=== PATIENT | female | born 1975 | race Caucasian/White ===

== ENCOUNTER 2018-08-24 05:59 | Outpatient (CLI) | payer OTHER ==
[~2018-08-24] VITALS: Ht 160 cm; Wt 77.1 kg
[2018-08-24] MEDS ORDERED: OMEP40CA36 PO (11:25)
[2018-08-26] MEDS ORDERED: ACHD5005 PO (09:00)
[2018-08-26] MEDS ORDERED: CEPH500C PO (09:00)
== END 2018-08-24 11:37 ==
LOC: PREOP 05:59
PROVIDERS: ATTEND Podiatrist Foot & Ankle Surgery
DX: Z01.818 Encounter for other preprocedural examination (principal)

== ENCOUNTER 2018-08-26 05:58 | Day surgery (SDC) | payer OTHER ==
[~2018-08-26] VITALS: Ht 160 cm; Wt 77.1 kg
[~2018-08-26 05:58] MED LIST: OMEP40CA36 PO
[2018-08-26] MEDS ORDERED: ceFAZolin INJECTION 1,000 MG in WATER (STERILE) FOR INJECTION 10 ML IV ONE (06:45)
[2018-08-26 06:47] VITALS: BP 106/53
[2018-08-26] MEDS ORDERED: ONDANSETRON 4 MG/2 ML (SDV) Z0FRAN ONE (06:47)
[2018-08-26] MEDS ORDERED: proPOfol 200 MG/20 ML (DIPRIVAN) VIAL IV ONE (06:47)
[2018-08-26] MEDS ORDERED: SEVOFLURANE (ULTANE) 15 ML INHAL SOLN ONE ×3 (06:47→08:38)
[2018-08-26] MEDS ORDERED: DEXAMETHASONE 10 MG/ML (DECADRON) 1 ML VIAL ONE (06:47)
[2018-08-26] MEDS ORDERED: MIDAZOLAM 2 MG/2 ML (VERSED) VIAL ONE (06:47)
[2018-08-26] MEDS ORDERED: LIDOCAINE PF 2% 5 ML (XYLOCAINE) VIAL ONE (06:47)
[2018-08-26] MEDS ORDERED: fentaNYL INJECTION 100 MCG/2 ML AMP ONE ×2 (06:47→08:55)
[2018-08-26] MEDS: LACTATED RINGERS 1,000 ML IV PRN ×2 (06:50→07:01)
[2018-08-26] MEDS ORDERED: BUPIVACAINE 0.5% 30 ML (SENSORCAINE) VIAL ONE (07:26)
[2018-08-26] MEDS ORDERED: LIDOCAINE 1% INJ 20 ML 20 ML VIAL ONE (07:26)
--- NOTE | 2018-08-26 07:37 | Progress Note-Pre Operative ---
Pre-Operative Progress Note H&P Reviewed The H&P was reviewed, patient examined and no changes noted. Date Seen by Provider: Aug 26, 2018 Time Seen by Provider: 07:36 Date H&P Reviewed: Aug 26, 2018 Time H&P Reviewed: 07:36 Pre-Operative Diagnosis: Tailor's Bunion right foot BHAVNA DELVALLE DPM Aug 26, 2018 07:37
--- NOTE | 2018-08-26 08:56 | Progress Note-Post Operative ---
Post-Operative Progess Note Surgeon (s)/Histotechnologist (s) Surgeon BHAVNA DELVALLE DPM Histotechnologist: none Pre-Operative Diagnosis Tailor's Bunion right foot Post-Operative Diagnosis Same Procedure & Operative Findings Date of Procedure 08/26/18 Procedure Performed/Findings Hussain type Bunionectomy, right 5th metatarsal Anesthesia Type General Estimated Blood Loss Estimated blood loss (mL): minimal Specimens/Packing Specimens Removed none BHAVNA DELVALLE DPM Aug 26, 2018 08:56
[2018-08-26] MEDS ORDERED: LACTATED RINGERS 1,000 ML IV SCH (08:57)
[2018-08-26] MEDS ORDERED: fentaNYL INJECTION 100 MCG/2 ML AMP IVP ONE (09:00)
[2018-08-26] MEDS ORDERED: HYDROcodone/APAP 5 MG/325 MG (LORTAB) TAB PO PRN (09:00)
[2018-08-26] MEDS ORDERED: MEPERIDINE (DEMEROL) INJ 50 MG/ML IVP ONE (09:00)
[2018-08-26] MEDS ORDERED: ACHD5005 PO (09:00)
[2018-08-26] MEDS ORDERED: CEPH500C PO (09:00)
[2018-08-26] MEDS ORDERED: ONDANSETRON 4 MG/2 ML (SDV) Z0FRAN IVP PRN (09:00)
[2018-08-26 09:50] VITALS: BP 124/70
[2018-08-26 10:20] VITALS: BP 105/65
[2018-08-26 10:50] VITALS: BP 107/68
--- NOTE | 2018-08-26 11:01 | Physical Therapy Ortho Eval ---
PT Orthopedic Evaluation Type of Surgery bunion right foot Prior Level of Function Current Living Status: Spouse Locomotion (Upon Admit): Independent Subjective Subjective Patient in bed pre tx, agrees to PT, has no pain at rest. Entry Into Home: Stairs Without Railing Steps Into Home: 1 Motor Control Motor Control: Motor Control WNL ROM ROM: WFL Strength Strength: WFL Transfer Transfers (B, C, W/C) (FIM): 5 Gait Gait Assistive Device: Crutches Right Lower Extremity: Right Weight Bearing Status RLE: Partial Weight Bearing Left Lower Extremity: Left Weight Bearing Status LLE: Full Weight Bearing Gait (FIM): 5 Distance: 150' Gait Level of Assist: 5 Summary/Comments Patient ambulated without LOB, used appropriate weight bearing, good swing through. She did need a cue to slow down and take smaller steps. Patient also went up and down 1 step using crutches with CGA and cues for foot placement. Treatment Rendered Treatment: Therapeutic Exercises, Gait Train, Step Train, Reviewed Precautions Exercise Instruction: Ankle Pumps LAQ Assessment/Goals Goal Time Frame: 1 Visit Understands HEP: Yes Safe Ambulation: Yes Plan Treatment Plan: Discharge PT/Family Agrees to Plan: Yes Time Time In: 1035 Time Out: 1052 Total Billed Treatment Time: 17 Billed Treatment Time 1 visit JOSE ALEJANDRO Kauffman' DEBBIE MANCILLA PT Aug 26, 2018 11:01
[2018-08-26 11:05] VITALS: BP 107/68
--- NOTE | 2018-08-26 11:56 | Diagnostic Imaging Report ---
Right foot at 911 hours. INDICATION: Foot surgery postop. AP and lateral views were obtained. There are no prior studies available for comparison. FINDINGS: There are 2 orthopedic fixation wire securing an osteotomy site of the neck of the fifth metatarsal. The orthopedic hardware appears to be in good position and the main fracture fragments are near anatomic in alignment. There does seem to be soft tissue edema in this area. There is a small amount of gas in the soft tissues as well. There is no other fracture or acute bony abnormality identified. There is moderate degenerative disease of the midfoot and there is a calcified enthesophyte along the posterior aspect of the calcaneus. IMPRESSION: There are postsurgical changes involving the neck of the fifth metatarsal. There is no acute bony abnormality noted otherwise. Dictated by: Dictated on workstation # [id number]
--- NOTE | 2018-08-26 12:19 | Anesthesia-General Post-Op ---
General Patient Condition Mental Status/LOC: Same as Preop Cardiovascular: Satisfactory Nausea/Vomiting: Absent Respiratory: Satisfactory Pain: Controlled Complications: Absent Post Op Complications Complications None Follow Up Care/Instructions Patient Instructions None needed. Anesthesia/Patient Condition Patient Condition Patient is doing well, no complaints, stable vital signs, no apparent adverse anesthesia problems. No complications reported per nursing. DOMENICA HARDY CRNA Aug 26, 2018 12:19
--- NOTE | 2018-08-26 17:31 | OPERATIVE REPORT ---
DATE OF SERVICE: 08/26/2018 SURGEON: Bhavna Delvalle DPM. PREOPERATIVE DIAGNOSIS: Tailor's bunion, right foot. POSTOPERATIVE DIAGNOSIS: Tailor's bunion, right foot. PROCEDURE: Hussain type bunionectomy, right fifth metatarsal. WOUND CLASS: Clean. ANESTHESIA: General. HEMOSTASIS: Pneumatic thigh tourniquet at 250 mmHg. INDICATIONS: This 42-year-old female presents complaining of a painful bunionette of the right foot. Conservative therapy has met with unsatisfactory results and the patient is agreeable to surgical intervention, after risks and complications were discussed at length. No guarantees were extended to the patient and she is willing to proceed. DESCRIPTION OF PROCEDURE: The patient was brought back to the operating table, placed in a secure supine position. Appropriate time out was performed. A general anesthetic was then induced. Utilizing aseptic technique, the right fifth metatarsal was anesthetized utilizing 10 mL of 0.5% Marcaine. The right foot was then prepped and draped in normal sterile manner. The right foot was then elevated and allowed to exsanguinate, after which the tourniquet was inflated to 250 mmHg. Attention was then directed to the dorsal aspect of the right fifth metatarsophalangeal joint, where a 3 cm longitudinal linear incision was created. The incision we deepened in the same plane with great care to identify and retract all vital neurovascular structures. All the necessary blood vessels were cauterized as encountered. The incision was deepened down to the capsular tissue, where a longitudinal capsulotomy was performed. The capsular tissue was exposing the hypertrophic lateral eminence to the fifth metatarsal head, which was resected utilizing the power sagittal saw. Next, utilizing the power sagittal saw, a Chevron-type osteotomy was performed from lateral to medial allowing the capital fragment to translocate medially and it was fixated in its corrected position utilizing a 0.062 threaded K-wire driven from proximal to plantar distal and a 0.045 threaded K wire from distal dorsal to proximal plantar. The K wires were cut, flush with the dorsal aspect of the cortices. Excellent bony apposition and fixation was appreciated. At this time, the head of the fifth metatarsal and distal diaphysis were further contoured and smoothed utilizing a power bur. The wound was flushed with copious amounts of normal saline, once again after which closure was then performed in layers. Deep closure was performed with 3-0 Vicryl, superficial with 4-0 Vicryl, skin closed with 4-0 Prolene in a horizontal mattress type stitch. Postoperative injection consisted of 8 mL of 0.5% Marcaine injected in a local infusion to the surgical site. Postoperative dressing consisted of Betadine soaked Adaptic, sterile 4 x 4, sterile Kerlix all secured with a Coban wrap. The patient tolerated the anesthesia and procedure well, was transported from the operating room to the recovery area with vital signs stable and vascular status intact to all digits of the right foot. She was given a prescription for Keflex and Vicodin. She is to follow up in my office in 10 days' period of time and stay nonweightbearing on the right foot. We will see her sooner if necessary. 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
--- OUTSIDE RECORDS SUMMARY | 2018-08-28 05:55 | XMS REPORT ---
Author [facility] Medical Staff Organization [facility] Address [address], [place] [address] Phone [phone] Summary purpose TRANSITION OF CARE AUTO GENERATION Chief Complaint and Reason for Visit No authorized Reason for Visit (Admitting Diagnosis) is available for this visit. Problem list No authorized problems tracked for continuity of care are available for this visit. Encounters No authorized problems tracked for encounter diagnoses are available for this visit. Medications No medications recorded for this patient visit Allergies, adverse reactions, alerts Allergen Category Ingredient Status Reaction Severity Onset No known drug allergies No known drug allergies No known drug allergies Confirmed or Verified Immunizations No immunizations recorded for this patient visit Relevant diagnostic tests and/or laboratory data No authorized results are available for this patient visit History of procedures No procedures recorded for this patient visit. Functional status No functional or cognitive status observations are available for this visit. Vital signs No authorized vital signs are available for this visit. Social history No Social History or smoking status observations were recorded for this visit. ( Unknown if ever smoked.) Treatment Plan No treatment plan text is available for this visit. Hospital discharge instructions No discharge instruction text is available for this visit.
--- OUTSIDE RECORDS SUMMARY | 2018-08-28 05:55 | XMS REPORT ---
Author [facility] Organization [facility] Address [address] [place], [place] [address] Phone [phone] Summary purpose TRANSITION OF CARE AUTO GENERATION [...] visit Relevant diagnostic tests and/or laboratory data RESULTS Chemistry [id number]:55:00 Result Normal Range Units Sodium 140 134-145 mEq/l Potassium 3.5 3.5-5.1 mEq/l Chloride 101 98-107 mEq/l CO2 25.5 22-28 mEq/l Glucose 81 70-105 mg/dl BUN 9 7-18 mg/dl Creatinine 0.81 0.6-1.0 mg/dl Calcium 8.6 8.4-10.2 mg/dl TP - Total Protein 6.8 6.0-8.3 g/dl Albumin L 3.3 3.5-5 g/dl Bilirubin - Total 0.5 0.1-1.0 mg/dl AST 13 10-42 IU/L ALT 22 12-65 IU/L ALP 49 25-72 IU/L Osmolality L 277.1 280-300 mOsm/L Albumin/Globulin Ratio 0.9 0-8 Anion GAP 13.5 8-16 BUN/Creatinine Ratio 11.1 10-20 Estimated GFR 80 >=60 mL/min/1.7 Hematology [id number]:55:00 Result Normal Range Units WBC 10.8 4.8-10.8 103/uL RBC L 3.6 4.2-5.4 106/uL HGB L 10.7 12.0-16.0 g/dl HCT L 31.6 36.9-47.0 % MCV 86.8 81-99 FL MCH 29.4 27-31 pg MCHC 33.9 33-37 g/dl RDW 13.2 11.5-15.5 % PLT 302 130-400 103/uL MPV 9.9 7.3-10.4 FL Neutro % H 73.4 40-70 % Lymph % 20.8 20-40 % [place] % 4.0 0-10.0 % Eos % 0.9 0-7.0 % Baso % 0.3 0-2 % Neutro # H 8.0 1.5-7.5 103/uL Lymph # 2.3 0.9-4.0 103/uL [place] # 0.4 0-0.8 103/uL Eos # 0.1 0-0.6 103/uL Baso # 0.0 0-0.1 103/uL Radiology Results :55:00 Result Normal Range Units MPV 9.9 7.3-10.4 FL History of procedures No procedures recorded for this patient visit. Functional status Functional Status Finding Observation Time Ambulation Asst Dev none :20 Muscle Strength RUE 5 ROM full resist :20 Muscle Strength RLE 5 ROM full resist :20 Muscle Strength LUE 5 ROM full resist :20 Muscle Strength LLE 5 ROM full resist :20 Abdomen Appearance obese :20 Abdomen tender :20 Bowel Sounds present :20 Davidson no :20 Urination normal :20 Quality sym/unlabored :20 Cough absent :20 Secretions no :20 Secretion Consist thin :20 Secretion Color clear :20 Airway natural :20 Temp >100.4 no :20 Temp <96.8 no :20 Chills with rigors no :20 HR > 90bpm no :20 Respirations > 20 no :20 Systolic <90 no :20 headache stiff neck no :20 IV Site Location L FA :41 IV Type peripheral :41 IV Site Information discontinued :41 IV Site Start Attmpt 1 times :55 IV Site Mirza 22 :55 IV Site Appearance WNL :55 IV Site Color clear :55 IV Site Patent yes :55 Dressing Type occlusive :55 Nursing Note heart tones-163. SL dc intact, discharge instructions reviewed with pt-verbalized understanding. vS obtained, dc in good condition and ambulatory. :41 Vital signs Type Value Date Respiration Rate 20breaths per minute :41 Pulse 63beats per minute :41 Oxygen Saturation 96% :41 BP Systolic 106mmHg :41 BP Diastolic 56mmHg :41 Temperature 98.1F :15 Height 63inches :15 Weight 242LB :15 Social history Type Value Smoking Status CURRENT SOME DAY SMOKER Treatment Plan No treatment plan text is available for this visit. Hospital discharge instructions Dismissal Condition good Disposition on DC home DC Inst/Educ Give yes Med/Side Effects Rev yes PNE Vac No Flu Vac No Tetanus Vac Unknown
--- OUTSIDE RECORDS SUMMARY | 2018-08-28 05:55 | XMS REPORT ---
Author Author Nessa Banuelos Organization [employer] Address Unknown Phone Unavailable Care Team Providers Care Doping Supervisor Name Role Phone Nessa Banuelos CP Unavailable Allergies No Known Allergies Problems Problem Type Condition Code Onset Dates Condition Status Assessment Maternal care for other (suspected) abnormality and damage, not applicable or unspecified O35.8XX0 Active Medications No Known Medications Procedures Procedure Coding System Code Date Echocardiography, doppler, ; follow-up CPT-4 26000 Jun 11, 2015 Doppler color flow velocity mapping CPT-4 08242 Jun 11, 2015 Echocardiography, , 2D, follow-up CPT-4 79503 Jun 11, 2015 Results No Known Results Summary Purpose [employer] Submission
--- OUTSIDE RECORDS SUMMARY | 2018-08-28 05:55 | XMS REPORT ---
Author [facility] Medical Staff Organization [facility] Address [address], [place] [address] Phone [phone] Summary purpose TRANSITION OF CARE AUTO GENERATION [...]
--- OUTSIDE RECORDS SUMMARY | 2018-08-28 05:55 | XMS REPORT ---
Author [facility] Medical Staff Organization [facility] Address [address], [place] [address] Phone [phone] Summary purpose TRANSITION OF CARE AUTO GENERATION Chief Complaint and Reason for Visit Admit Diagnosis 1 OTH CURR COND-ANTEPARTUM Problem list No authorized problems tracked for [...] diagnostic tests and/or laboratory data RESULTS Chemistry [id number]:00 Result Normal Range Units Sodium 140 134-145 [...] 10-20 Estimated GFR 80 >=60 mL/min/1.7 Hematology [id number]:55:00 Result Normal Range Units WBC 10.8 4.8-10.8 103/uL RBC L 3.6 4.2-5.4 106/uL HGB L 10.7 12.0-16.0 g/dl HCT L 31.6 36.9-47.0 % MCV 86.8 81-99 FL MCH 29.4 27-31 pg MCHC 33.9 33-37 g/dl RDW 13.2 11.5-15.5 % PLT 302 130-400 103/uL MPV 9.9 7.3-10.4 FL Neutro % H 73.4 40-70 % Lymph % 20.8 20-40 % [place] % 4.0 0-10.0 % Eos % 0.9 0-7.0 % Baso % 0.3 0-2 % Neutro # H 8.0 1.5-7.5 103/uL Lymph # 2.3 0.9-4.0 103/uL [place] # 0.4 0-0.8 103/uL Eos # 0.1 0-0.6 103/uL Baso # 0.0 0-0.1 103/uL Radiology Results [id number]:00 Result Normal Range Units MPV 9.9 7.3-10.4 FL History of procedures Procedure Code Code Type Description Date Performed Performing Physician 23326 CPT-4 COMPLETE CBC W/AUTO DIFF WBC 02-11-2015 LAHTA CHOI 30327 CPT-4 COMPREHEN METABOLIC PANEL 02-11-2015 LATHA CHOI J2550 CPT-4 PROMETHAZIEN 25MG/ML 02-11-2015 LATHA CHOI J7030 CPT-4 NORMAL SALINE SOLUTION INFUS 02-11-2015 LATHA CHOI J2550 CPT-4 PROMETHAZIEN 25MG/ML 02-11-2015 LATHA CHOI J7040 CPT-4 NORMAL SALINE SOLUTION INFUS 02-11-2015 LATHA CHOI 54915 CPT-4 ROUTINE VENIPUNCTURE 02-11-2015 LATHA CHOI 27013 CPT-4 EMERGENCY DEPT VISIT 02-11-2015 LATHA CHOI 98700 CPT-4 EMERGENCY DEPT VISIT 02-11-2015 LATHA CHOI 36140 CPT-4 THER/PROPH/DIAG INJ, IV PUSH 02-11-2015 LATHA CHOI 77034 CPT-4 TX/PRO/DX INJ NEW DRUG PATIENT COMPANION 02-11-2015 LATHA CHOI 88462 CPT-4 HYDRATE IV INFUSION, ADD-ON 02-11-2015 LATHA CHOI Functional status Functional Status Finding Observation Time [...] normal :20 Quality sym/unlabored :20 Cough absent : Secretions no : Secretion Consist thin :20 Secretion Color clear :20 Airway natural : Temp >100.4 no : Temp <96.8 no :20 Chills with rigors no : HR > 90bpm no :20 Respirations > 20 no : Systolic <90 no : headache stiff neck no :20 IV Site [...]
--- OUTSIDE RECORDS SUMMARY | 2018-08-28 05:56 | XMS REPORT | Clinical Summary ---
Author Author Admin, E Organization [employer] Address Unknown Phone Unavailable Allergies, Adverse Reactions, Alerts Allergy Name Reaction Description Start Date Severity Status Provider HYDROCODONE IV Critical Active Tariq Marrero MD Conditions or Problems Problem Name Problem Code Onset Date Status Entry Date Provider Comment Standard Description Annotate Health examination of defined subpopulations V70.5 Resolved 2014 Karen Jaramillo MD Health examination of defined subpopulations Supervision of other normal V22.1 Inactive Karen Jaramillo MD Supervision of other normal Supervision high risk , third trimester V23.9 Resolved Rian Ortega MD Supervision of unspecified high-risk Advanced maternal age 659.60 Resolved Rian Ortega MD Elderly multigravida, with current , unspecified as to episode of care or not applicable Previous delivery, antepartum condition or complication 654.23 11/20 Active Karen Jaramillo MD Previous section, antepartum condition or complication Obesity 278.00 Refinement Karen Jaramillo MD Obesity, unspecified Obesity Class I (BMI 30-34.9) 278.00 Active Rian Ortega MD Obesity, unspecified Vaginal bleeding, first trimester 641.90 Inactive Karen Jaramillo MD Unspecified antepartum hemorrhage, unspecified as to episode of care or not applicable Vaginal bleeding, second trimester 641.93 Resolved Rian Ortega MD Unspecified antepartum hemorrhage, antepartum condition or complication Trichomonal vaginitis 131.01 Resolved Rian Ortega MD Trichomonal vulvovaginitis Insect bite 919.4 Resolved Karen Jaramillo MD Insect bite, nonvenomous, of other, multiple, and unspecified sites, without mention of infection Sexual activity, high risk V69.2 Resolved Rian Ortega MD High-risk sexual behavior Diarrhea 787.91 Resolved Rian Ortega MD Diarrhea Nausea and vomiting 787.01 Resolved Rian Ortega MD Nausea with vomiting Supervision of elderly primigravida, second trimester V23.83 Resolved Karen Jaramillo MD Young primigravida Weight loss 783.21 Resolved Karen Jaramillo MD Loss of weight 18 weeks gestation of V28.9 Resolved Karen Jaramillo MD Encounter for unspecified screening of mother Obesity complicating , second trimester 649.13 Resolved Rian Ortega MD Obesity complicating , childbirth , or the puerperium, antepartum condition or complication 20 weeks gestation of V28.9 Inactive Deepika Alvarez LRT Encounter for unspecified screening of mother Low lying placenta 762.2 Resolved Rian Ortega MD Other and unspecified morphological and functional abnormalities of placenta affecting fetus or 24 weeks gestation of V28.9 Inactive Karen Jaramillo MD Encounter for unspecified screening of mother 28 weeks gestation of V28.9 Resolved Rian Ortega MD Encounter for unspecified screening of mother Polyhydramnios, antepartum 657.03 Resolved Rian Ortega MD Polyhydramnios, antepartum condition or complication 29 weeks gestation of V28.9 Inactive Deepika Alvarez LRT Encounter for unspecified screening of mother Cellulitis 682.9 Resolved Rian Ortega MD Cellulitis and abscess of unspecified sites Abscess, skin 682.9 Resolved Rian Ortega MD Cellulitis and abscess of unspecified sites 30 weeks gestation of V28.9 Inactive Deepika LRT Encounter for unspecified screening of mother 31 weeks gestation of V28.9 Inactive Deepika Alvarez LRT Encounter for unspecified screening of mother Morbid obesity 278.01 Resolved Rian Ortega MD Morbid obesity Obstructive sleep apnea 327.23 Active Rian Ortega MD Obstructive sleep apnea (adult) (pediatric) Cigarette smoker 305.1 Resolved Rian Ortega MD Tobacco use disorder 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 V72.31 Active Sasha Tan APRN Routine gynecological examination Bariatric operative procedure V45.86 Active Mariely HARVEY Bariatric surgery status Physical examination V70.0 Active Sasha Tan APRN Routine general medical examination at a health care facility Dysuria 788.1 Resolved Rian Ortega MD Dysuria Urinary tract infection 599.0 Resolved Rian Ortega MD Urinary tract infection, site not specified Bronchitis 490 Resolved Rian Ortega MD Bronchitis, not specified as acute or chronic Shoulder pain, left 719.41 Resolved Rian Ortega MD Pain in joint involving shoulder region Overweight 278.02 Resolved Rian Ortega MD Overweight Thoracic back pain 724.5 Resolved Rian Ortega MD Backache, unspecified Fatigue 780.79 Resolved Rian Ortega MD Other malaise and fatigue Cough 786.2 Resolved Rian Ortega MD Cough Myalgias 729.1 Inactive Tariq Marrero MD Myalgia and myositis, unspecified Body Mass Index 29.0-29.9 Adult Refinement Tariq Marrero MD Body Mass Index 29.0-29.9, adult BMI 31-31.9 Active Rian Ortega MD Body Mass Index 29.0-29.9, adult Encounter for general adult medical examination without abnormal findings V72.3 Active Irma Nix PA-C Special investigations and examinations - Gynecological examination SINUSITIS, ACUTE 461.9 Resolved Rian Ortega MD Acute sinusitis, unspecified Preoperative examination V72.84 Active Rian Ortega MD Preoperative examination, unspecified Health examination of defined subpopulations ICD-V70.5 Inactive Karen Jaramillo MD Supervision high risk , third trimester ICD-V23.9 10/31 Inactive Rian Ortega MD Advanced maternal age ICD-659.60 Inactive Rian Ortega MD Vaginal bleeding, second trimester ICD-641.93 Inactive Rian Ortega MD Trichomonal vaginitis ICD-131.01 Inactive Rian Ortega MD Insect bite ICD-919.4 Inactive Karen Jaramillo MD Sexual activity, high risk ICD-V69.2 Inactive Rian Ortega MD Diarrhea ICD-787.91 Inactive Rian Ortega MD Nausea and vomiting ICD-787.01 Inactive Rian Ortega MD Supervision of elderly primigravida, second trimester ICD-V23.83 Inactive Karen Jaramillo MD Weight loss ICD-783.21 Inactive Karen Jaramillo MD 18 weeks gestation of ICD-V28.9 Inactive Karen Jaramillo MD Obesity complicating , second trimester ICD-649.13 10/31 Inactive Rian Ortega MD 20 weeks gestation of ICD-V28.9 Inactive Deepika Alvarez LRT Low lying placenta ICD-762.2 Inactive Rian Ortega MD 28 weeks gestation of ICD-V28.9 Inactive Rian Ortega MD Polyhydramnios, antepartum ICD-657.03 Inactive Rian Ortega MD 29 weeks gestation of ICD-V28.9 Inactive Deepika Alvarez LRT Cellulitis ICD-682.9 Inactive Rian Ortega MD Abscess, skin ICD-682.9 Inactive Rian Ortega MD 30 weeks gestation of ICD-V28.9 Inactive Deepika Alvarez LRT 31 weeks gestation of ICD-V28.9 Inactive Deepika Alvarez LRT Morbid obesity ICD-278.01 Inactive Rian Ortega MD Cigarette smoker ICD-305.1 Inactive Rian Ortega MD Dysuria ICD-788.1 Inactive Rian Ortega MD 03/29 Urinary tract infection ICD-599.0 Inactive Rian Ortega MD Bronchitis ICD-490 Inactive Rian Ortega MD 2016 Shoulder pain, left ICD-719.41 Inactive Rian Ortega MD Overweight ICD-278.02 Inactive Paula Plascencia MA Thoracic back pain ICD-724.5 Inactive Rian Ortega MD Fatigue ICD-780.79 Inactive Rian Ortega MD 2018 Cough ICD-786.2 Inactive Rian Ortega MD Myalgias ICD-729.1 Inactive Tariq Marrero MD SINUSITIS, ACUTE ICD-461.9 Inactive Rian Ortega MD Medication List Medication Instructions Start Date Stop Date Generic Name NDC Status Provider Patient Instruction AMOXICILLIN 500 MG ORAL CAPSULE 1 cap by mouth three times a day AMOXICILLIN 55339723867 No Longer Active Tariq Marrero MD Active BACTRIM DS 800-160 MG ORAL TABLET 1 twice a day SULFAMETHOXAZOLE-TRIMETHOPRIM 98259736452 No Longer Active Irma Michaels Active ZITHROMAX Z-DANILO 250 MG ORAL TABLET 2 today, then 1 daily for 4 days AZITHROMYCIN 51441245706 No Longer Active Mahsa Alvarez Active AZITHROMYCIN 250 MG ORAL TABLET 2 po qd x 1 day, then 1 po qd x 4 days 07/27 AZITHROMYCIN 01168198050 No Longer Active Carline Best APRN Active GUAIFENESIN ER 600 MG ORAL TABLET EXTENDED RELEASE 12 HOUR 1 twice a day as needed for congestion GUAIFENESIN 70375131864 No Longer Active Sasha Tan APRN Active CYCLOBENZAPRINE HCL 10 MG ORAL TABLET 1 three times a day as needed for muscle spasm CYCLOBENZAPRINE HCL 15225457392 No Longer Active Sasha Tan APRN Active SYMBICORT 160-4.5 MCG/ACT INHALATION AEROSOL 2 puff BID for 10 days BUDESONIDE-FORMOTEROL FUMARATE 16633602783 No Longer Active Rian Ortega MD Active AZITHROMYCIN 250 MG ORAL TABLET 2 po qd x 1 day, then 1 po qd x 4 days 02/15 AZITHROMYCIN 57539249497 No Longer Active Carline Best APRN Active CIPRO 500 MG ORAL TABLET 1 tablet by mouth twice daily CIPROFLOXACIN HCL 42873678526 No Longer Active Tariq Marrero MD Active AZO TABS TABLET 2 tabs qd PHENAZOPYRIDINE HCL TABS 73026592802 No Longer Active Tariq Marrero MD Active CIPROFLOXACIN HCL 250 MG ORAL TABLET 1 twice a day for bladder infection 2016 CIPROFLOXACIN HCL 28247700235 No Longer Active Tariq Marrero MD Active SM VITAMIN B12 TR 1000 MCG ORAL TABLET EXTENDED RELEASE 1 tab po daily 04/24 CYANOCOBALAMIN 33107042050 No Longer Active Nereyda Rodriguez APRN Active CARAFATE 1 GM ORAL TABLET 1 tab po as needed up to 4 times per day SUCRALFATE 58376580659 No Longer Active Nereyda Rodriguez APRN Active PNV PLUS MULTIVITAMIN 27-1 MG ORAL TABLET 1 daily 04/24 VIT-FE FUMARATE-FA 52045372663 No Longer Active Sasha Tan APRN Active CHANTIX STARTING MONTH DANILO 0.5 MG X 11 & 1 MG X 42 ORAL TABLET take as directed VARENICLINE TARTRATE 79176968088 No Longer Active Sasha Tan APRN Active CHANTIX 1 MG ORAL TABLET 1 twice a day to help quit smoking 04/24 VARENICLINE TARTRATE 64218284201 No Longer Active Sasha Tan APRN Active OMEPRAZOLE 20 MG ORAL CAPSULE DELAYED RELEASE 1 tablet by mouth daily OMEPRAZOLE 63409370718 Active Sasha Tan APRN Active FLINSTONES GUMMIES OMEGA-3 DHA ORAL TABLET CHEWABLE 2 gummies per day PEDIATRIC MULTIPLE VIT-C-FA 69384271952 Active Sasha Tan APRN Active CLINDAMYCIN HCL 150 MG ORAL CAPSULE 1 four times a day for 1 week CLINDAMYCIN HCL 28423854436 No Longer Active Karen Jaramillo MD Active TRIAMCINOLONE ACETONIDE 0.1 % EXTERNAL CREAM Apply to affected areas TID for up to 1 week TRIAMCINOLONE ACETONIDE 22206667968 No Longer Active Rian Ortega MD Active ZITHROMAX 1 GM ORAL PACKET Take 1 time and recheck lab in 2-3 weeks AZITHROMYCIN 75255674041 No Longer Active Rian Ortega MD Active FLAGYL 500 MG ORAL TABLET four tabs PO x 1 METRONIDAZOLE 46588416972 No Longer Active Aris Charlton MD Active FLAGYL 500 MG ORAL TABLET four tabs PO x 1 FLAGYL 500 MG ORAL TABLET 376263 METRONIDAZOLE Inactive ZITHROMAX 1 GM ORAL PACKET Take 1 time and recheck lab in 2-3 weeks ZITHROMAX 1 GM ORAL PACKET 425913 AZITHROMYCIN Inactive TRIAMCINOLONE ACETONIDE 0.1 % EXTERNAL CREAM Apply to affected areas TID for up to 1 week TRIAMCINOLONE ACETONIDE 0.1 % EXTERNAL CREAM 0832574 TRIAMCINOLONE ACETONIDE Inactive CLINDAMYCIN HCL 150 MG ORAL CAPSULE 1 four times a day for 1 week CLINDAMYCIN HCL 150 MG ORAL CAPSULE 030803 CLINDAMYCIN HCL Inactive CHANTIX 1 MG ORAL TABLET 1 twice a day to help quit smoking 04/24 CHANTIX 1 MG ORAL TABLET VARENICLINE TARTRATE Inactive CHANTIX STARTING MONTH DANILO 0.5 MG X 11 & 1 MG X 42 ORAL TABLET take as directed CHANTIX STARTING MONTH DANILO 0.5 MG X 11 & 1 MG X 42 ORAL TABLET VARENICLINE TARTRATE Inactive PNV PLUS MULTIVITAMIN 27-1 MG ORAL TABLET 1 daily 04/24 PNV PLUS MULTIVITAMIN 27-1 MG ORAL TABLET VIT-FE FUMARATE-FA Inactive CARAFATE 1 GM ORAL TABLET 1 tab po as needed up to 4 times per day CARAFATE 1 GM ORAL TABLET 734000 SUCRALFATE Inactive SM VITAMIN B12 TR 1000 MCG ORAL TABLET EXTENDED RELEASE 1 tab po daily 04/24 SM VITAMIN B12 TR 1000 MCG ORAL TABLET EXTENDED RELEASE CYANOCOBALAMIN Inactive CIPROFLOXACIN HCL 250 MG ORAL TABLET 1 twice a day for bladder infection 2016 CIPROFLOXACIN HCL 250 MG ORAL TABLET 485449 CIPROFLOXACIN HCL Inactive AZO TABS TABLET 2 tabs qd AZO TABS TABLET PHENAZOPYRIDINE HCL TABS Inactive SYMBICORT 160-4.5 MCG/ACT INHALATION AEROSOL 2 puff BID for 10 days SYMBICORT 160-4.5 MCG/ACT INHALATION AEROSOL BUDESONIDE- FORMOTEROL FUMARATE Inactive CYCLOBENZAPRINE HCL 10 MG ORAL TABLET 1 three times a day as needed for muscle spasm CYCLOBENZAPRINE HCL 10 MG ORAL TABLET 678149 CYCLOBENZAPRINE HCL Inactive GUAIFENESIN ER 600 MG ORAL TABLET EXTENDED RELEASE 12 HOUR 1 twice a day as needed for congestion GUAIFENESIN ER 600 MG ORAL TABLET EXTENDED RELEASE 12 HOUR GUAIFENESIN Inactive BACTRIM DS 800-160 MG ORAL TABLET 1 twice a day BACTRIM DS 800-160 MG ORAL TABLET 941703 SULFAMETHOXAZOLE-TRIMETHOPRIM Inactive CIPRO 500 MG ORAL TABLET 1 tablet by mouth twice daily CIPRO 500 MG ORAL TABLET 305724 CIPROFLOXACIN HCL Inactive AZITHROMYCIN 250 MG ORAL TABLET 2 po qd x 1 day, then 1 po qd x 4 days 02/15 AZITHROMYCIN 250 MG ORAL TABLET 398258 AZITHROMYCIN Inactive AZITHROMYCIN 250 MG ORAL TABLET 2 po qd x 1 day, then 1 po qd x 4 days 07/27 AZITHROMYCIN 250 MG ORAL TABLET 526912 AZITHROMYCIN Inactive ZITHROMAX Z-DANILO 250 MG ORAL TABLET 2 today, then 1 daily for 4 days ZITHROMAX Z-DANILO 250 MG ORAL TABLET 147971 AZITHROMYCIN Inactive AMOXICILLIN 500 MG ORAL CAPSULE 1 cap by mouth three times a day AMOXICILLIN 500 MG ORAL CAPSULE 081019 AMOXICILLIN Inactive Immunizations Vaccine Administration Date Value Standard Description influenza immunization (Flu Vax) has been administered Done according to patient influenza virus vaccine, unspecified formulation hepatitis B vaccine series yes hepatitis B vaccine, unspecified formulation Vital Signs Date Name Value Unit Range Description blood pressure, diastolic, repeated by physician 67 BP calvo blood pressure, diastolic 67 mm[Hg] BP calvo blood pressure, systolic, repeated by physician 113 BP sys blood pressure, systolic 113 mm[Hg] BP sys height E&M 62 [in_us] Bdy height pulse rate E&M 62 /min Heart rate temperature E&M 97.7 [degF] Body temperature weight E&M 173 [lb_av] Weight Measured blood pressure, diastolic 72 mm[Hg] BP calvo blood pressure, systolic 125 mm[Hg] BP sys height E&M 62 [in_us] Bdy height pulse rate E&M 76 /min Heart rate temperature E&M 98.3 [degF] Body temperature weight E&M 163 [lb_av] Weight Measured blood pressure, diastolic, repeated by physician 70 BP calvo blood pressure, diastolic 70 mm[Hg] BP calvo blood pressure, systolic, repeated by physician 120 BP sys blood pressure, systolic 120 mm[Hg] BP sys height E&M 62 [in_us] Bdy height pulse rate E&M 66 /min Heart rate temperature E&M 98.6 [degF] Body temperature weight E&M 164 [lb_av] Weight Measured height E&M 62 [in_us] Bdy height blood pressure, diastolic 76 mm[Hg] BP calvo blood pressure, systolic 116 mm[Hg] BP sys height E&M 62 [in_us] Bdy height pulse rate E&M 104 /min Heart rate temperature E&M 102.1 [degF] Body temperature weight E&M 161 [lb_av] Weight Measured Diagnostic Results Date Name Value Unit Range Description Immunizations: TB Skin Test - Challenge tests PPD results in mm 0 mm Lab Report: CBC W/DIFF - Hematology leukocyte count, blood sent to [facility] 10^3/mm^3 10*3/mm3 4.6-10.2 Office Visit: Pre-Surgery Exam - Basic LDL target level 160 mg/dL Office Visit: Pre-Surgery Exam - Chemistry HDL cholesterol, serum, target level 40 mg/dL cholesterol, target level 200 mg/dL triglyceride, target level 150 mg/dL Office Visit: UTI - Chemistry RBC, urine, dipstick trace Office Visit: UTI - Urinalysis nitrite, urine, semiquantitative positive urobilinogen, urine, semiquantitative (dipstick) 0.2 leukocyte esterase, urine, by dipstick 2+ appearance, urine cloudy urine color red specific gravity, urine 1.010 pH, urine, semiquantitative 7.5 glucose, urine, semiquantitative 1+ ketones, urine, by test strip trace bilirubin, urine 1+ Encounters Code Encounter Date Provider Facility CPT-84028 [id number] Vst-Est Level IV 13:46:58 MANAGER GROUP Rian Ortega MD [facility] CPT-32018 Level 3 Est. Patient 16:49:52 CDT Rian Ortega MD [facility] CPT-22323 [id number] Vst-Est Level III 16:46:54 CDT Tariq Marrero MD [facility] CPT-16659 Level 3 Est. Patient 14:41:20 CDT Tariq Marrero MD [facility] CPT-21996 Level 3 Est. Patient 11:06:09 MANAGER GROUP Carline Best [facility] CPT-03428 Level 3 Est. Patient 15:59:13 MANAGER GROUP Carline Best [facility] CPT-75523 Employment/ICC Exam 15:03:09 MANAGER GROUP Sasha Tan [facility] CPT-37450 Level 3 Est. Patient 11:54:40 CDT Rian Ortega MD [facility] CPT-09804 Level 3 Est. Patient 11:17:51 CDT Carline Best [facility] CPT-10524 Level 3 Est. Patient 15:43:38 CDT Tariq Marrero MD [facility] CPT-16877 Level 3 Est. Patient 11:16:27 MANAGER GROUP Nereyda Rodriguez [facility] CPT-88000 Level 4 Est. Patient 08:56:42 MANAGER GROUP Sasha Tan [facility] CPT-91288 Level 3 Est. Patient 16:40:58 CDT Rian Ortega MD [facility] CPT-17128 Level 3 Est. Patient 13:55:16 MANAGER GROUP Rian Ortega MD [facility] CPT-25539 Level 3 Est. Patient 10:42:52 CDT Corrina Bailon [facility] CPT-37636 Level 3 Est. Patient 11:18:30 CDT Aris Charlton MD [facility] Procedures Code Procedure Name Date Entry Date Standard Description CPT-91168 Prv Med Est Pt 40-64yrs 16:49:40 CDT CPT-22279 UA w micro - LAB USE ONLY 13:09:18 MANAGER GROUP CPT-15448 Urine Culture - LAB USE ONLY 13:09:18 MANAGER GROUP CPT-11047 Wet Mount - LAB USE ONLY 11:11:39 MANAGER GROUP CPT-26710 Lipid - LAB USE ONLY 15:05:24 MANAGER GROUP CPT-72570 PT/INR - LAB USE ONLY 12:14:07 CDT CPT-97246 HGBA1C - LAB USE ONLY 12:14:07 CDT CPT-50611 CMP - LAB USE ONLY 12:14:07 CDT CPT-66392 CBC - LAB USE ONLY 12:14:07 CDT CPT-74174 Venipuncture Draw Fee 12:14:06 CDT CPT-J0702 Celestone 6 mg (Betamethasone) 15:04:45 MANAGER GROUP CPT-76045 Abx/Therapy Injection 15:04:45 MANAGER GROUP CPT-J0702 Celestone 12 mg (Betamethasone) 11:45:31 MANAGER GROUP CPT-23811 Visit 11:39:52 MANAGER GROUP CPT-44783I Sono biophysical pro wo stress test-[employer] Only 11:21: 42 MANAGER GROUP CPT-33557 Visit 16:00:50 MANAGER GROUP CPT-51022R Sono biophysical pro wo stress test-[employer] Only 13:12: 18 MANAGER GROUP CPT-60390 Sono biophysical pro wo stress test 11:17:21 MANAGER GROUP 05/21 CPT-47585 Tdap 7yrs or > 15:22:51 MANAGER GROUP CPT-39241 Immunization Single Admin 15:22:51 MANAGER GROUP CPT-29299 Tdap 7yrs or > 15:09:13 MANAGER GROUP CPT-43964 Visit 14:54:16 MANAGER GROUP CPT-59263 Fluzone Quadrivalent Intramuscular Suspension 0.5 ML 16: 58:58 CDT CPT-89532 Administration single or combination vaccine inc oral 16 :58:58 CDT CPT-39370 Fluzone Thim Free 36mo and older 14:47:39 CDT CPT-88343 Visit 14:47:39 CDT CPT-04098 Sono OB limited 10:30:07 CDT CPT-39978 Visit 10:04:44 CDT CPT-41912 Sono OB comp > 14 weeks 12:50:41 CDT CPT-74747 Visit 12:06:25 CDT CPT-16029 Visit 12:43:15 CDT CPT-49117 Visit 10:06:02 CDT CPT-01091 Spec Collection and Handling Fee 10:00:31 CDT CPT-50316 Visit 10:00:30 CDT CPT-99147 Drug Screen Grisel 14:36:13 CDT
--- OUTSIDE RECORDS SUMMARY | 2018-08-28 05:57 | XMS REPORT | Clinical Summary ---
Author Author Admin, E Organization [employer] Address Unknown Phone Unavailable Allergies, Adverse Reactions, [...] high risk , third trimester V23.9 Resolved Rina Ortega MD Supervision of unspecified high-risk Advanced [...] screening of mother Morbid obesity 278.01 Resolved iRan Ortega MD Morbid obesity Obstructive sleep apnea 327.23 Active Rian Ortega MD Obstructive sleep apnea (adult) (pediatric) Cigarette smoker 305.1 Resolved Rian Ortega MD Tobacco use disorder Senior Benefits Analyst well woman exam V72.31 Active Sasha Tan [...] Acute sinusitis, unspecified Preoperative examination V72.84 Active Rain Ortega MD Preoperative examination, unspecified Health examination [...] by mouth three times a day AMOXICILLIN 64928133105 No Longer Active Tariq Marrero MD Active BACTRIM DS 800-160 MG ORAL TABLET 1 twice a day SULFAMETHOXAZOLE-TRIMETHOPRIM 97515723002 No Longer Active Irma Michaels Active ZITHROMAX Z-DANILO 250 MG ORAL TABLET 2 today, then 1 daily for 4 days AZITHROMYCIN 24901926750 No Longer Active Mahsa Alvarez Active AZITHROMYCIN 250 MG ORAL TABLET 2 po qd x 1 day, then 1 po qd x 4 days 07/27 AZITHROMYCIN 08391388108 No Longer Active Carline Best APRN Active GUAIFENESIN ER 600 MG ORAL TABLET EXTENDED RELEASE 12 HOUR 1 twice a day as needed for congestion GUAIFENESIN 84811209732 No Longer Active Sasha Tan APRN Active CYCLOBENZAPRINE HCL 10 MG ORAL TABLET 1 three times a day as needed for muscle spasm CYCLOBENZAPRINE HCL 92756000758 No Longer Active Sasha Tan APRN Active SYMBICORT 160-4.5 MCG/ACT INHALATION AEROSOL 2 puff BID for 10 days BUDESONIDE-FORMOTEROL FUMARATE 51149696664 No Longer Active Rian Ortega MD Active AZITHROMYCIN 250 MG ORAL TABLET 2 po qd x 1 day, then 1 po qd x 4 days 02/15 AZITHROMYCIN 27533259886 No Longer Active Carline Best APRN Active CIPRO 500 MG ORAL TABLET 1 tablet by mouth twice daily CIPROFLOXACIN HCL 43826227056 No Longer Active Tariq Marrero MD Active AZO TABS TABLET 2 tabs qd PHENAZOPYRIDINE HCL TABS 35719577977 No Longer Active Tariq Marrero MD Active CIPROFLOXACIN HCL 250 MG ORAL TABLET 1 twice a day for bladder infection 2016 CIPROFLOXACIN HCL 43960143052 No Longer Active Tariq Marrero MD Active SM VITAMIN B12 TR 1000 MCG ORAL TABLET EXTENDED RELEASE 1 tab po daily 04/24 CYANOCOBALAMIN 34686510507 No Longer Active Nereyda Rodriguez APRN Active CARAFATE 1 GM ORAL TABLET 1 tab po as needed up to 4 times per day SUCRALFATE 34640259807 No Longer Active Nereyda Rodriguez APRN Active PNV PLUS MULTIVITAMIN 27-1 MG ORAL TABLET 1 daily 04/24 VIT-FE FUMARATE-FA 90836918667 No Longer Active Sasha Tan APRN Active CHANTIX STARTING MONTH DANILO 0.5 MG X 11 & 1 MG X 42 ORAL TABLET take as directed VARENICLINE TARTRATE 50289008898 No Longer Active Sasha Tan APRN Active CHANTIX 1 MG ORAL TABLET 1 twice a day to help quit smoking 04/24 VARENICLINE TARTRATE 27511172370 No Longer Active Sasha Tan APRN Active OMEPRAZOLE 20 MG ORAL CAPSULE DELAYED RELEASE 1 tablet by mouth daily OMEPRAZOLE 25421619691 Active Sasha Tan APRN Active FLINSTONES GUMMIES OMEGA-3 DHA ORAL TABLET CHEWABLE 2 gummies per day PEDIATRIC MULTIPLE VIT-C-FA 67609675525 Active Sasha Tan APRN Active CLINDAMYCIN HCL 150 MG ORAL CAPSULE 1 four times a day for 1 week CLINDAMYCIN HCL 24501420893 No Longer Active Karen Jaramillo MD Active TRIAMCINOLONE ACETONIDE 0.1 % EXTERNAL CREAM Apply to affected areas TID for up to 1 week TRIAMCINOLONE ACETONIDE 70674583575 No Longer Active Rian Ortega MD Active ZITHROMAX 1 GM ORAL PACKET Take 1 time and recheck lab in 2-3 weeks AZITHROMYCIN 22553583868 No Longer Active Rian Ortega MD Active FLAGYL 500 MG ORAL TABLET four tabs PO x 1 METRONIDAZOLE 15870739049 No Longer Active Aris Charlton MD Active FLAGYL 500 MG ORAL TABLET four tabs PO x 1 FLAGYL 500 MG ORAL TABLET 021574 METRONIDAZOLE Inactive ZITHROMAX 1 GM ORAL PACKET Take 1 time and recheck lab in 2-3 weeks ZITHROMAX 1 GM ORAL PACKET 009650 AZITHROMYCIN Inactive TRIAMCINOLONE ACETONIDE 0.1 % EXTERNAL CREAM Apply to affected areas TID for up to 1 week TRIAMCINOLONE ACETONIDE 0.1 % EXTERNAL CREAM 1920727 TRIAMCINOLONE ACETONIDE Inactive CLINDAMYCIN HCL 150 MG ORAL CAPSULE 1 four times a day for 1 week CLINDAMYCIN HCL 150 MG ORAL CAPSULE 777269 CLINDAMYCIN HCL Inactive CHANTIX 1 MG ORAL [...] per day CARAFATE 1 GM ORAL TABLET 384844 SUCRALFATE Inactive SM VITAMIN B12 TR 1000 MCG ORAL TABLET EXTENDED RELEASE 1 tab po daily 04/24 SM VITAMIN B12 TR 1000 MCG ORAL TABLET EXTENDED RELEASE CYANOCOBALAMIN Inactive CIPROFLOXACIN HCL 250 MG ORAL TABLET 1 twice a day for bladder infection 2016 CIPROFLOXACIN HCL 250 MG ORAL TABLET 444331 CIPROFLOXACIN HCL Inactive AZO TABS TABLET 2 tabs qd AZO TABS TABLET PHENAZOPYRIDINE HCL TABS Inactive SYMBICORT 160-4.5 MCG/ACT INHALATION AEROSOL 2 puff BID for 10 days SYMBICORT 160-4.5 MCG/ACT INHALATION AEROSOL BUDESONIDE- FORMOTEROL FUMARATE Inactive CYCLOBENZAPRINE HCL 10 MG ORAL TABLET 1 three times a day as needed for muscle spasm CYCLOBENZAPRINE HCL 10 MG ORAL TABLET 661022 CYCLOBENZAPRINE HCL Inactive GUAIFENESIN ER 600 MG ORAL TABLET EXTENDED RELEASE 12 HOUR 1 twice a day as needed for congestion GUAIFENESIN ER 600 MG ORAL TABLET EXTENDED RELEASE 12 HOUR GUAIFENESIN Inactive BACTRIM DS 800-160 MG ORAL TABLET 1 twice a day BACTRIM DS 800-160 MG ORAL TABLET 301517 SULFAMETHOXAZOLE-TRIMETHOPRIM Inactive CIPRO 500 MG ORAL TABLET 1 tablet by mouth twice daily CIPRO 500 MG ORAL TABLET 670412 CIPROFLOXACIN HCL Inactive AZITHROMYCIN 250 MG ORAL TABLET 2 po qd x 1 day, then 1 po qd x 4 days 02/15 AZITHROMYCIN 250 MG ORAL TABLET 226704 AZITHROMYCIN Inactive AZITHROMYCIN 250 MG ORAL TABLET 2 po qd x 1 day, then 1 po qd x 4 days 07/27 AZITHROMYCIN 250 MG ORAL TABLET 287567 AZITHROMYCIN Inactive ZITHROMAX Z-DANILO 250 MG ORAL TABLET 2 today, then 1 daily for 4 days ZITHROMAX Z-DANILO 250 MG ORAL TABLET 588292 AZITHROMYCIN Inactive AMOXICILLIN 500 MG ORAL CAPSULE 1 cap by mouth three times a day AMOXICILLIN 500 MG ORAL CAPSULE 985521 AMOXICILLIN Inactive Immunizations Vaccine Administration Date Value [...] - Hematology leukocyte count, blood sent to [facility] 10^3/mm^3 10*3/mm3 4.6-10.2 Office Visit: Pre-Surgery Exam [...] 1+ Encounters Code Encounter Date Provider Facility CPT-11948 [id number] Vst-Est Level IV 13:46:58 [employer] Rian Ortega MD [facility] CPT-13218 Level 3 Est. Patient 16:49:52 CDT Rian Ortega MD [facility] CPT-76671 [id number] Vst-Est Level III 16:46:54 CDT Tariq Marrero MD [facility] CPT-87311 Level 3 Est. Patient 14:41:20 CDT Tariq Marrero MD [facility] CPT-50980 Level 3 Est. Patient 11:06:09 [employer] Carline Best [facility] CPT-60396 Level 3 Est. Patient 15:59:13 [employer] Carline Best [facility] CPT-96163 Employment/ICC Exam 15:03:09 [employer] Sasha Tan [facility] CPT-65893 Level 3 Est. Patient 11:54:40 CDT Rian Ortega MD [facility] CPT-63048 Level 3 Est. Patient 11:17:51 CDT Carline Best [facility] CPT-21880 Level 3 Est. Patient 15:43:38 CDT Tariq Marrero MD [facility] CPT-83631 Level 3 Est. Patient 11:16:27 [employer] Nereyda Rodriguez [facility] CPT-44641 Level 4 Est. Patient 08:56:42 [employer] Sasha Tan [facility] CPT-86870 Level 3 Est. Patient 16:40:58 CDT Rian Ortega MD [facility] CPT-34497 Level 3 Est. Patient 13:55:16 [employer] Rian Ortega MD [facility] CPT-43592 Level 3 Est. Patient 10:42:52 CDT Corrina Bailon [facility] CPT-07133 Level 3 Est. Patient 11:18:30 CDT Aris Charlton MD [facility] Procedures Code Procedure Name Date Entry Date Standard Description CPT-91382 Prv Med Est Pt 40-64yrs 16:49:40 CDT CPT-06969 UA w micro - LAB USE ONLY 13:09:18 [employer] [employer] CPT-36247 Urine Culture - LAB USE ONLY 13:09:18 [employer] [place] CPT-65392 Wet Mount - LAB USE ONLY 11:11:39 [employer] [employer] [employer] CPT-40327 Lipid - LAB USE ONLY 15:05:24 [employer] [place] [employer] CPT-36387 PT/INR - LAB USE ONLY 12:14:07 CDT CPT-01079 HGBA1C - LAB USE ONLY 12:14:07 CDT CPT-67216 CMP - LAB USE ONLY 12:14:07 CDT CPT-01983 CBC - LAB USE ONLY 12:14:07 CDT CPT-29175 Venipuncture Draw Fee 12:14:06 CDT CPT-J0702 Celestone 6 mg (Betamethasone) 15:04:45 [employer] [place] [employer] CPT-62034 Abx/Therapy Injection 15:04:45 [employer] [place] CPT-J0702 Celestone 12 mg (Betamethasone) 11:45:31 [employer] CPT-12602 Visit 11:39:52 [employer] [place] CPT-66574H [employer] pro wo stress test-[place] Only 11:21: 42 [employer] CPT-06680 Visit 16:00:50 [employer] [place] CPT-20996W [employer] pro wo stress test-[place] Only 13:12: 18 [employer] [place] [place] CPT-31385 [employer] pro wo stress test 11:17:21 [employer] [place] 05/21 CPT-60965 Tdap 7yrs or > 15:22:51 [employer] [place] [place] CPT-17079 Immunization Single Admin 15:22:51 [employer] [place] [employer] CPT-32741 Tdap 7yrs or > 15:09:13 [employer] [place] [place] CPT-93282 Visit 14:54:16 [employer] [place] [employer] CPT-50010 Fluzone Quadrivalent Intramuscular Suspension 0.5 ML 16: 58:58 CDT CPT-53743 Administration single or combination vaccine inc oral 16 :58:58 CDT CPT-68873 Fluzone Thim Free 36mo and older 14:47:39 CDT CPT-13129 Visit 14:47:39 CDT CPT-15358 Sono OB limited 10:30:07 CDT CPT-38344 Visit 10:04:44 CDT CPT-44370 Sono OB comp > 14 weeks 12:50:41 CDT CPT-65532 Visit 12:06:25 CDT CPT-54434 Visit 12:43:15 CDT CPT-85166 Visit 10:06:02 CDT CPT-65821 Spec Collection and Handling Fee 10:00:31 CDT CPT-45737 Visit 10:00:30 CDT CPT-32132 Drug Screen [place] 14:36:13 CDT
--- OUTSIDE RECORDS SUMMARY | 2018-08-28 05:57 | XMS REPORT | Clinical Summary ---
Author Author Admin, E Organization [employer] Address Unknown Phone Unavailable Allergies, Adverse Reactions, [...] screening of mother Morbid obesity 278.01 Resolved Rina Ortega MD Morbid obesity Obstructive sleep apnea 327.23 Active Rian Ortega MD Obstructive sleep apnea (adult) (pediatric) Cigarette smoker 305.1 Resolved Rian Ortega MD Tobacco use disorder Associate Sales Representative well woman exam V72.31 Active Sasha Tan [...] joint involving shoulder region Overweight 278.02 Resolved iRan Ortega MD Overweight Thoracic back pain 724.5 [...] Active Rian Ortega MD Preoperative examination, unspecified Supervision high risk , third trimester ICD-V23.9 [...] second trimester ICD-V23.83 Inactive Karen Jaramillo MD Health examination of defined subpopulations ICD-V70.5 Inactive Karen Jaramillo MD Obesity complicating , second trimester ICD-649.13 10/31 Inactive Rian Ortega MD 20 weeks gestation of ICD-V28.9 Inactive Deepika Alvarez LRT Low lying placenta ICD-762.2 Inactive Rian Ortega MD Weight loss ICD-783.21 Inactive Karen Jaramillo MD 28 weeks gestation of ICD-V28.9 Inactive Rian Ortega MD Polyhydramnios, antepartum ICD-657.03 Inactive Rian Ortega MD 29 weeks gestation of ICD-V28.9 Inactive Deepika MCQUEENT Cellulitis ICD-682.9 Inactive Rian Ortega MD Abscess, skin ICD-682.9 Inactive Rian Ortega MD 30 weeks gestation of ICD-V28.9 Inactive Deepika Alvarez LRT 31 weeks gestation of ICD-V28.9 Inactive Deepika MCQUEENT Morbid obesity ICD-278.01 Inactive Rian Ortega MD Cigarette smoker ICD-305.1 Inactive Rian Ortega MD Dysuria ICD-788.1 Inactive Rian Ortega MD 03/29 Urinary tract infection ICD-599.0 Inactive Rian Ortega MD 18 weeks gestation of ICD-V28.9 Inactive Karen Jaramillo MD Shoulder pain, left ICD-719.41 Inactive Rian Ortega MD Overweight ICD-278.02 Inactive Paula Plascencia MA Thoracic back pain ICD-724.5 Inactive Rian Ortega MD Fatigue ICD-780.79 Inactive Rian Ortega MD 2018 Cough ICD-786.2 Inactive Rian Ortega MD Myalgias ICD-729.1 Inactive Tariq Marrero MD SINUSITIS, ACUTE ICD-461.9 Inactive Rian Ortega MD Bronchitis ICD-490 Inactive Rian Ortega MD 2016 Medication List Medication Instructions Start Date Stop Date Generic Name NDC Status Provider Patient Instruction AMOXICILLIN 500 MG ORAL CAPSULE 1 cap by mouth three times a day AMOXICILLIN 90304928629 No Longer Active Tariq Marrero MD Active BACTRIM DS 800-160 MG ORAL TABLET 1 twice a day SULFAMETHOXAZOLE-TRIMETHOPRIM 51357487300 No Longer Active Irma Michaels Active ZITHROMAX Z-DANILO 250 MG ORAL TABLET 2 today, then 1 daily for 4 days AZITHROMYCIN 40464796515 No Longer Active Mahsa Alvarez Active AZITHROMYCIN 250 MG ORAL TABLET 2 po qd x 1 day, then 1 po qd x 4 days 07/27 AZITHROMYCIN 14865595236 No Longer Active Carline Best APRN Active GUAIFENESIN ER 600 MG ORAL TABLET EXTENDED RELEASE 12 HOUR 1 twice a day as needed for congestion GUAIFENESIN 19316202087 No Longer Active Sasha Tan APRN Active CYCLOBENZAPRINE HCL 10 MG ORAL TABLET 1 three times a day as needed for muscle spasm CYCLOBENZAPRINE HCL 50913500406 No Longer Active Sasha Tan APRN Active SYMBICORT 160-4.5 MCG/ACT INHALATION AEROSOL 2 puff BID for 10 days BUDESONIDE-FORMOTEROL FUMARATE 64614727088 No Longer Active Rian Ortega MD Active AZITHROMYCIN 250 MG ORAL TABLET 2 po qd x 1 day, then 1 po qd x 4 days 02/15 AZITHROMYCIN 06732631562 No Longer Active Carline Best APRN Active CIPRO 500 MG ORAL TABLET 1 tablet by mouth twice daily CIPROFLOXACIN HCL 69960838477 No Longer Active Tariq Marrero MD Active AZO TABS TABLET 2 tabs qd PHENAZOPYRIDINE HCL TABS 11411124037 No Longer Active Tariq Marrero MD Active CIPROFLOXACIN HCL 250 MG ORAL TABLET 1 twice a day for bladder infection 2016 CIPROFLOXACIN HCL 88974762058 No Longer Active Tariq Marrero MD Active SM VITAMIN B12 TR 1000 MCG ORAL TABLET EXTENDED RELEASE 1 tab po daily 04/24 CYANOCOBALAMIN 05348071090 No Longer Active Nereyda Rodriguez APRN Active CARAFATE 1 GM ORAL TABLET 1 tab po as needed up to 4 times per day SUCRALFATE 09513452270 No Longer Active Nereyda Rodriguez APRN Active PNV PLUS MULTIVITAMIN 27-1 MG ORAL TABLET 1 daily 04/24 VIT-FE FUMARATE-FA 16935001902 No Longer Active Sasha Tan APRN Active CHANTIX STARTING MONTH DANILO 0.5 MG X 11 & 1 MG X 42 ORAL TABLET take as directed VARENICLINE TARTRATE 61141349828 No Longer Active Sasha Tan APRN Active CHANTIX 1 MG ORAL TABLET 1 twice a day to help quit smoking 04/24 VARENICLINE TARTRATE 18591488057 No Longer Active Sasha Tan APRN Active OMEPRAZOLE 20 MG ORAL CAPSULE DELAYED RELEASE 1 tablet by mouth daily OMEPRAZOLE 13098721603 Active Sasha Tan APRN Active FLINSTONES GUMMIES OMEGA-3 DHA ORAL TABLET CHEWABLE 2 gummies per day PEDIATRIC MULTIPLE VIT-C-FA 98702189722 Active Sasha Tan APRN Active CLINDAMYCIN HCL 150 MG ORAL CAPSULE 1 four times a day for 1 week CLINDAMYCIN HCL 34802698729 No Longer Active Karen Jaramillo MD Active TRIAMCINOLONE ACETONIDE 0.1 % EXTERNAL CREAM Apply to affected areas TID for up to 1 week TRIAMCINOLONE ACETONIDE 10908681361 No Longer Active Rian Ortega MD Active ZITHROMAX 1 GM ORAL PACKET Take 1 time and recheck lab in 2-3 weeks AZITHROMYCIN 84506846463 No Longer Active Rian Ortega MD Active FLAGYL 500 MG ORAL TABLET four tabs PO x 1 METRONIDAZOLE 36972402734 No Longer Active Aris Charlton MD Active FLAGYL 500 MG ORAL TABLET four tabs PO x 1 FLAGYL 500 MG ORAL TABLET 321162 METRONIDAZOLE Inactive ZITHROMAX 1 GM ORAL PACKET Take 1 time and recheck lab in 2-3 weeks ZITHROMAX 1 GM ORAL PACKET 310449 AZITHROMYCIN Inactive TRIAMCINOLONE ACETONIDE 0.1 % EXTERNAL CREAM Apply to affected areas TID for up to 1 week TRIAMCINOLONE ACETONIDE 0.1 % EXTERNAL CREAM 8281297 TRIAMCINOLONE ACETONIDE Inactive CLINDAMYCIN HCL 150 MG ORAL CAPSULE 1 four times a day for 1 week CLINDAMYCIN HCL 150 MG ORAL CAPSULE 837198 CLINDAMYCIN HCL Inactive CHANTIX 1 MG ORAL [...] per day CARAFATE 1 GM ORAL TABLET 574961 SUCRALFATE Inactive SM VITAMIN B12 TR 1000 MCG ORAL TABLET EXTENDED RELEASE 1 tab po daily 04/24 SM VITAMIN B12 TR 1000 MCG ORAL TABLET EXTENDED RELEASE CYANOCOBALAMIN Inactive CIPROFLOXACIN HCL 250 MG ORAL TABLET 1 twice a day for bladder infection 2016 CIPROFLOXACIN HCL 250 MG ORAL TABLET 007845 CIPROFLOXACIN HCL Inactive AZO TABS TABLET 2 tabs qd AZO TABS TABLET PHENAZOPYRIDINE HCL TABS Inactive SYMBICORT 160-4.5 MCG/ACT INHALATION AEROSOL 2 puff BID for 10 days SYMBICORT 160-4.5 MCG/ACT INHALATION AEROSOL BUDESONIDE- FORMOTEROL FUMARATE Inactive CYCLOBENZAPRINE HCL 10 MG ORAL TABLET 1 three times a day as needed for muscle spasm CYCLOBENZAPRINE HCL 10 MG ORAL TABLET 262642 CYCLOBENZAPRINE HCL Inactive GUAIFENESIN ER 600 MG ORAL TABLET EXTENDED RELEASE 12 HOUR 1 twice a day as needed for congestion GUAIFENESIN ER 600 MG ORAL TABLET EXTENDED RELEASE 12 HOUR GUAIFENESIN Inactive BACTRIM DS 800-160 MG ORAL TABLET 1 twice a day BACTRIM DS 800-160 MG ORAL TABLET 662148 SULFAMETHOXAZOLE-TRIMETHOPRIM Inactive CIPRO 500 MG ORAL TABLET 1 tablet by mouth twice daily CIPRO 500 MG ORAL TABLET 431382 CIPROFLOXACIN HCL Inactive AZITHROMYCIN 250 MG ORAL TABLET 2 po qd x 1 day, then 1 po qd x 4 days 02/15 AZITHROMYCIN 250 MG ORAL TABLET 868507 AZITHROMYCIN Inactive AZITHROMYCIN 250 MG ORAL TABLET 2 po qd x 1 day, then 1 po qd x 4 days 07/27 AZITHROMYCIN 250 MG ORAL TABLET 774075 AZITHROMYCIN Inactive ZITHROMAX Z-DANILO 250 MG ORAL TABLET 2 today, then 1 daily for 4 days ZITHROMAX Z-DANILO 250 MG ORAL TABLET 701122 AZITHROMYCIN Inactive AMOXICILLIN 500 MG ORAL CAPSULE 1 cap by mouth three times a day AMOXICILLIN 500 MG ORAL CAPSULE 774087 AMOXICILLIN Inactive Immunizations Vaccine Administration Date Value [...] - Hematology leukocyte count, blood sent to [facility] 10^3/mm^3 10*3/mm3 4.6-10.2 Office Visit: Pre-Surgery [...] 1+ Encounters Code Encounter Date Provider Facility CPT-18889 [id number] Vst-Est Level IV 13:46:58 [employer]ISTANT [employer] MANAGER Rian Ortega MD [facility] CPT-16059 Level 3 Est. Patient 16:49:52 CDT Rian Ortega MD [facility] CPT-09428 [id number] Vst-Est Level III 16:46:54 CDT Tariq Marrero MD [facility] CPT-88438 Level 3 Est. Patient 14:41:20 CDT Tariq Marrero MD [facility] CPT-80863 Level 3 Est. Patient 11:06:09 ASSISTANT OFFICE MANAGER Carline Best [facility] CPT-83585 Level 3 Est. Patient 15:59:13 ASSISTANT OFFICE MANAGER Carline Best [facility] CPT-71039 Employment/ICC Exam 15:03:09 ASSISTANT OFFICE MANAGER Sasha Tan [facility] CPT-00216 Level 3 Est. Patient 11:54:40 CDT Rian Ortega MD [facility] CPT-83728 Level 3 Est. Patient 11:17:51 CDT Carline Best [facility] CPT-33554 Level 3 Est. Patient 15:43:38 CDT Tariq Marrero MD [facility] CPT-46014 Level 3 Est. Patient 11:16:27 ASSISTANT OFFICE MANAGER Nereyda Rodriguez [facility] CPT-42395 Level 4 Est. Patient 08:56:42 ASSISTANT OFFICE MANAGER Sasha Tan [facility] CPT-44088 Level 3 Est. Patient 16:40:58 CDT Rian Ortega MD [facility] CPT-51126 Level 3 Est. Patient 13:55:16 ASSISTANT OFFICE MANAGER Rian Ortega MD [facility] CPT-62612 Level 3 Est. Patient 10:42:52 CDT Corrina Bailon [facility] CPT-72504 Level 3 Est. Patient 11:18:30 CDT Aris Charlton MD [facility] Procedures Code Procedure Name Date Entry Date Standard Description CPT-92543 Prv Med Est Pt 40-64yrs 16:49:40 CDT CPT-68878 UA w micro - LAB USE ONLY 13:09:18 ASSISTANT OFFICE MANAGER CPT-34747 Urine Culture - LAB USE ONLY 13:09:18 ASSISTANT OFFICE MANAGER CPT-92885 Wet Mount - LAB USE ONLY 11:11:39 ASSISTANT OFFICE MANAGER CPT-63805 Lipid - LAB USE ONLY 15:05:24 ASSISTANT OFFICE MANAGER CPT-07545 PT/INR - LAB USE ONLY 12:14:07 CDT CPT-06684 HGBA1C - LAB USE ONLY 12:14:07 CDT CPT-16429 CMP - LAB USE ONLY 12:14:07 CDT CPT-54152 CBC - LAB USE ONLY 12:14:07 CDT CPT-32011 Venipuncture Draw Fee 12:14:06 CDT CPT-J0702 Celestone 6 mg (Betamethasone) 15:04:45 ASSISTANT OFFICE MANAGER CPT-04282 Abx/Therapy Injection 15:04:45 ASSISTANT OFFICE MANAGER CPT-J0702 Celestone 12 mg (Betamethasone) 11:45:31 ASSISTANT OFFICE MANAGER CPT-90720 Visit 11:39:52 ASSISTANT OFFICE MANAGER CPT-88676H Son[employer] biophysical pro wo stress test-[place] Only 11:21: 42 ASSISTANT OFFICE MANAGER CPT-06710 Visit 16:00:50 ASSISTANT OFFICE MANAGER CPT-73054R [employer] biophysical pro wo stress test-[place] Only 13:12: 18 ASSISTANT OFFICE MANAGER CPT-11422 [employer]o biophysical pro wo stress test 11:17:21 ASSISTANT OFFICE MANAGER 05/21 CPT-45492 Tdap 7yrs or > 15:22:51 ASSISTANT OFFICE MANAGER CPT-46520 Immunization Single Admin 15:22:51 ASSISTANT OFFICE MANAGER CPT-39854 Tdap 7yrs or > 15:09:13 ASSISTANT OFFICE MANAGER CPT-78571 Visit 14:54:16 ASSISTANT OFFICE MANAGER CPT-72448 Fluzone Quadrivalent Intramuscular Suspension 0.5 ML 16: 58:58 CDT CPT-24032 Administration single or combination vaccine inc oral 16 :58:58 CDT CPT-91136 Fluzone Thim Free 36mo and older 14:47:39 CDT CPT-68548 Visit 14:47:39 CDT CPT-42145 Sono OB limited 10:30:07 CDT CPT-19683 Visit 10:04:44 CDT CPT-96589 Sono OB comp > 14 weeks 12:50:41 CDT CPT-40614 Visit 12:06:25 CDT CPT-42288 Visit 12:43:15 CDT CPT-05928 Visit 10:06:02 CDT CPT-49308 Spec Collection and Handling Fee 10:00:31 CDT CPT-41362 Visit 10:00:30 CDT CPT-66986 Drug Screen [place] 14:36:13 CDT
--- OUTSIDE RECORDS SUMMARY | 2018-08-28 05:58 | XMS REPORT | Clinical Summary ---
Author Author Admin, E Organization [employer] 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 exam V72.31 Active Sasha Tan [...] by mouth three times a day AMOXICILLIN 86457043280 No Longer Active Tariq Marrero MD Active BACTRIM DS 800-160 MG ORAL TABLET 1 twice a day SULFAMETHOXAZOLE-TRIMETHOPRIM 87300031942 No Longer Active Irma Michaels Active ZITHROMAX Z-DANILO 250 MG ORAL TABLET 2 today, then 1 daily for 4 days AZITHROMYCIN 78641049084 No Longer Active Mahsa Alvarez Active AZITHROMYCIN 250 MG ORAL TABLET 2 po qd x 1 day, then 1 po qd x 4 days 07/27 AZITHROMYCIN 66351642485 No Longer Active Carline Best APRN Active GUAIFENESIN ER 600 MG ORAL TABLET EXTENDED RELEASE 12 HOUR 1 twice a day as needed for congestion GUAIFENESIN 44800146145 No Longer Active Sasha Tan APRN Active CYCLOBENZAPRINE HCL 10 MG ORAL TABLET 1 three times a day as needed for muscle spasm CYCLOBENZAPRINE HCL 26872669187 No Longer Active Sasha Tan APRN Active SYMBICORT 160-4.5 MCG/ACT INHALATION AEROSOL 2 puff BID for 10 days BUDESONIDE-FORMOTEROL FUMARATE 99826987071 No Longer Active Rian Ortega MD Active AZITHROMYCIN 250 MG ORAL TABLET 2 po qd x 1 day, then 1 po qd x 4 days 02/15 AZITHROMYCIN 00388295176 No Longer Active Carline Best APRN Active CIPRO 500 MG ORAL TABLET 1 tablet by mouth twice daily CIPROFLOXACIN HCL 12315396299 No Longer Active Tariq Marrero MD Active AZO TABS TABLET 2 tabs qd PHENAZOPYRIDINE HCL TABS 77538054310 No Longer Active Tariq Marrero MD Active CIPROFLOXACIN HCL 250 MG ORAL TABLET 1 twice a day for bladder infection 2016 CIPROFLOXACIN HCL 81633425939 No Longer Active Tariq Marrero MD Active SM VITAMIN B12 TR 1000 MCG ORAL TABLET EXTENDED RELEASE 1 tab po daily 04/24 CYANOCOBALAMIN 88277384802 No Longer Active Nereyda Rodriguez APRN Active CARAFATE 1 GM ORAL TABLET 1 tab po as needed up to 4 times per day SUCRALFATE 38053215683 No Longer Active Nereyda Rodriguez APRN Active PNV PLUS MULTIVITAMIN 27-1 MG ORAL TABLET 1 daily 04/24 VIT-FE FUMARATE-FA 78592366905 No Longer Active Sasha Tan APRN Active CHANTIX STARTING MONTH DANILO 0.5 MG X 11 & 1 MG X 42 ORAL TABLET take as directed VARENICLINE TARTRATE 01514240499 No Longer Active Sasha Tan APRN Active CHANTIX 1 MG ORAL TABLET 1 twice a day to help quit smoking 04/24 VARENICLINE TARTRATE 83182087074 No Longer Active Sasha Tan APRN Active OMEPRAZOLE 20 MG ORAL CAPSULE DELAYED RELEASE 1 tablet by mouth daily OMEPRAZOLE 65778602290 Active Sasha Tan APRN Active FLINSTONES GUMMIES OMEGA-3 DHA ORAL TABLET CHEWABLE 2 gummies per day PEDIATRIC MULTIPLE VIT-C-FA 91951148063 Active Sasha Tan APRN Active CLINDAMYCIN HCL 150 MG ORAL CAPSULE 1 four times a day for 1 week CLINDAMYCIN HCL 54431955490 No Longer Active Karen Jaramillo MD Active TRIAMCINOLONE ACETONIDE 0.1 % EXTERNAL CREAM Apply to affected areas TID for up to 1 week TRIAMCINOLONE ACETONIDE 36298588267 No Longer Active Rian Ortega MD Active ZITHROMAX 1 GM ORAL PACKET Take 1 time and recheck lab in 2-3 weeks AZITHROMYCIN 71413576272 No Longer Active Rian Ortega MD Active FLAGYL 500 MG ORAL TABLET four tabs PO x 1 METRONIDAZOLE 41650170685 No Longer Active Aris Charlton MD Active FLAGYL 500 MG ORAL TABLET four tabs PO x 1 FLAGYL 500 MG ORAL TABLET 466936 METRONIDAZOLE Inactive ZITHROMAX 1 GM ORAL PACKET Take 1 time and recheck lab in 2-3 weeks ZITHROMAX 1 GM ORAL PACKET 117462 AZITHROMYCIN Inactive TRIAMCINOLONE ACETONIDE 0.1 % EXTERNAL CREAM Apply to affected areas TID for up to 1 week TRIAMCINOLONE ACETONIDE 0.1 % EXTERNAL CREAM 0107285 TRIAMCINOLONE ACETONIDE Inactive CLINDAMYCIN HCL 150 MG ORAL CAPSULE 1 four times a day for 1 week CLINDAMYCIN HCL 150 MG ORAL CAPSULE 761516 CLINDAMYCIN HCL Inactive CHANTIX 1 MG ORAL [...] per day CARAFATE 1 GM ORAL TABLET 656808 SUCRALFATE Inactive SM VITAMIN B12 TR 1000 MCG ORAL TABLET EXTENDED RELEASE 1 tab po daily 04/24 SM VITAMIN B12 TR 1000 MCG ORAL TABLET EXTENDED RELEASE CYANOCOBALAMIN Inactive CIPROFLOXACIN HCL 250 MG ORAL TABLET 1 twice a day for bladder infection 2016 CIPROFLOXACIN HCL 250 MG ORAL TABLET 365805 CIPROFLOXACIN HCL Inactive AZO TABS TABLET 2 tabs qd AZO TABS TABLET PHENAZOPYRIDINE HCL TABS Inactive SYMBICORT 160-4.5 MCG/ACT INHALATION AEROSOL 2 puff BID for 10 days SYMBICORT 160-4.5 MCG/ACT INHALATION AEROSOL BUDESONIDE- FORMOTEROL FUMARATE Inactive CYCLOBENZAPRINE HCL 10 MG ORAL TABLET 1 three times a day as needed for muscle spasm CYCLOBENZAPRINE HCL 10 MG ORAL TABLET 735006 CYCLOBENZAPRINE HCL Inactive GUAIFENESIN ER 600 MG ORAL TABLET EXTENDED RELEASE 12 HOUR 1 twice a day as needed for congestion GUAIFENESIN ER 600 MG ORAL TABLET EXTENDED RELEASE 12 HOUR GUAIFENESIN Inactive BACTRIM DS 800-160 MG ORAL TABLET 1 twice a day BACTRIM DS 800-160 MG ORAL TABLET 734412 SULFAMETHOXAZOLE-TRIMETHOPRIM Inactive CIPRO 500 MG ORAL TABLET 1 tablet by mouth twice daily CIPRO 500 MG ORAL TABLET 754611 CIPROFLOXACIN HCL Inactive AZITHROMYCIN 250 MG ORAL TABLET 2 po qd x 1 day, then 1 po qd x 4 days 02/15 AZITHROMYCIN 250 MG ORAL TABLET 999537 AZITHROMYCIN Inactive AZITHROMYCIN 250 MG ORAL TABLET 2 po qd x 1 day, then 1 po qd x 4 days 07/27 AZITHROMYCIN 250 MG ORAL TABLET 144299 AZITHROMYCIN Inactive ZITHROMAX Z-DANILO 250 MG ORAL TABLET 2 today, then 1 daily for 4 days ZITHROMAX Z-DANILO 250 MG ORAL TABLET 141746 AZITHROMYCIN Inactive AMOXICILLIN 500 MG ORAL CAPSULE 1 cap by mouth three times a day AMOXICILLIN 500 MG ORAL CAPSULE 682211 AMOXICILLIN Inactive Immunizations Vaccine Administration Date Value [...] - Hematology leukocyte count, blood sent to [facility] 10^3/mm^3 10*3/mm3 4.6-10.2 Office Visit: Pre-Surgery Exam [...] 1+ Encounters Code Encounter Date Provider Facility CPT-89713 [id number] Vst-Est Level IV 13:46:58 WEIR FISHER Rian Ortega MD [facility] CPT-92050 Level 3 Est. Patient 16:49:52 CDT Rian Ortega MD [facility] CPT-78560 [id number] Vst-Est Level III 16:46:54 CDT Tariq Marrero MD [facility] CPT-87508 Level 3 Est. Patient 14:41:20 CDT Tariq Marrero MD [facility] CPT-03181 Level 3 Est. Patient 11:06:09 WEIR FISHER Carline Best [facility] CPT-66148 Level 3 Est. Patient 15:59:13 WEIR FISHER Carline Best [facility] CPT-57402 Employment/ICC Exam 15:03:09 WEIR FISHER Sasha Tan [facility] CPT-59799 Level 3 Est. Patient 11:54:40 CDT Rian Ortega MD [facility] CPT-62590 Level 3 Est. Patient 11:17:51 CDT Carline Best [facility] CPT-81386 Level 3 Est. Patient 15:43:38 CDT Tariq Marrero MD [facility] CPT-93672 Level 3 Est. Patient 11:16:27 WEIR FISHER Nereyda Rodriguez [facility] CPT-99928 Level 4 Est. Patient 08:56:42 WEIR FISHER Sasha Tan [facility] CPT-79957 Level 3 Est. Patient 16:40:58 CDT Rian Ortega MD [facility] CPT-72370 Level 3 Est. Patient 13:55:16 WEIR FISHER Rian Ortega MD [facility] CPT-53782 Level 3 Est. Patient 10:42:52 CDT Corrina Bailon [facility] CPT-84306 Level 3 Est. Patient 11:18:30 CDT Aris Charlton MD [facility] Procedures Code Procedure Name Date Entry Date Standard Description CPT-76731 Prv Med Est Pt 40-64yrs 16:49:40 CDT CPT-57493 UA w micro - LAB USE ONLY 13:09:18 WEIR FISHER CPT-40943 Urine Culture - LAB USE ONLY 13:09:18 WEIR FISHER CPT-37112 Wet Mount - LAB USE ONLY 11:11:39 WEIR FISHER CPT-87999 Lipid - LAB USE ONLY 15:05:24 WEIR FISHER CPT-50089 PT/INR - LAB USE ONLY 12:14:07 CDT CPT-18126 HGBA1C - LAB USE ONLY 12:14:07 CDT CPT-22113 CMP - LAB USE ONLY 12:14:07 CDT CPT-28989 CBC - LAB USE ONLY 12:14:07 CDT CPT-74713 Venipuncture Draw Fee 12:14:06 CDT CPT-J0702 Celestone 6 mg (Betamethasone) 15:04:45 WEIR FISHER CPT-07089 Abx/Therapy Injection 15:04:45 WEIR FISHER CPT-J0702 Celestone 12 mg (Betamethasone) 11:45:31 WEIR FISHER CPT-71981 Visit 11:39:52 WEIR FISHER CPT-85553K [employer] biophysical pro wo stress test-[place] Only 11:21: 42 WEIR FISHER CPT-81111 Visit 16:00:50 WEIR FISHER CPT-66642D [employer] biophysical pro wo stress test-[place] Only 13:12: 18 WEIR FISHER CPT-98362 [employer] biophysical pro wo stress test 11:17:21 WEIR FISHER 05/21 CPT-29961 Tdap 7yrs or > 15:22:51 WEIR FISHER CPT-67126 Immunization Single Admin 15:22:51 WEIR FISHER CPT-55127 Tdap 7yrs or > 15:09:13 WEIR FISHER CPT-13220 Visit 14:54:16 WEIR FISHER CPT-79201 Fluzone Quadrivalent Intramuscular Suspension 0.5 ML 16: 58:58 CDT CPT-74551 Administration single or combination vaccine inc oral 16 :58:58 CDT CPT-72361 Fluzone Thim Free 36mo and older 14:47:39 CDT CPT-48162 Visit 14:47:39 CDT CPT-55031 Sono OB limited 10:30:07 CDT CPT-97341 Visit 10:04:44 CDT CPT-89815 Sono OB comp > 14 weeks 12:50:41 CDT CPT-83369 Visit 12:06:25 CDT CPT-85443 Visit 12:43:15 CDT CPT-68797 Visit 10:06:02 CDT CPT-01506 Spec Collection and Handling Fee 10:00:31 CDT CPT-64491 Visit 10:00:30 CDT CPT-25979 Drug Screen [place] 14:36:13 CDT
--- OUTSIDE RECORDS SUMMARY | 2018-08-28 05:59 | XMS REPORT | Clinical Summary ---
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 V72.31 Active Sasha Tan [...] by mouth three times a day AMOXICILLIN 03259774600 No Longer Active Tariq Marrero MD Active BACTRIM DS 800-160 MG ORAL TABLET 1 twice a day SULFAMETHOXAZOLE-TRIMETHOPRIM 63879858030 No Longer Active Iram Michaels Active ZITHROMAX Z-DANILO 250 MG ORAL TABLET 2 today, then 1 daily for 4 days AZITHROMYCIN 33815462375 No Longer Active Mahsa Alvarez Active AZITHROMYCIN 250 MG ORAL TABLET 2 po qd x 1 day, then 1 po qd x 4 days 07/27 AZITHROMYCIN 81738181199 No Longer Active Carline Best APRN Active GUAIFENESIN ER 600 MG ORAL TABLET EXTENDED RELEASE 12 HOUR 1 twice a day as needed for congestion GUAIFENESIN 65080280863 No Longer Active Sasha Tan APRN Active CYCLOBENZAPRINE HCL 10 MG ORAL TABLET 1 three times a day as needed for muscle spasm CYCLOBENZAPRINE HCL 88132696797 No Longer Active Sasha Tan APRN Active SYMBICORT 160-4.5 MCG/ACT INHALATION AEROSOL 2 puff BID for 10 days BUDESONIDE-FORMOTEROL FUMARATE 67475241513 No Longer Active Rian Ortega MD Active AZITHROMYCIN 250 MG ORAL TABLET 2 po qd x 1 day, then 1 po qd x 4 days 02/15 AZITHROMYCIN 33487623351 No Longer Active Carline Best APRN Active CIPRO 500 MG ORAL TABLET 1 tablet by mouth twice daily CIPROFLOXACIN HCL 73493670094 No Longer Active Tariq Marrero MD Active AZO TABS TABLET 2 tabs qd PHENAZOPYRIDINE HCL TABS 65634172328 No Longer Active Tariq Marrero MD Active CIPROFLOXACIN HCL 250 MG ORAL TABLET 1 twice a day for bladder infection 2016 CIPROFLOXACIN HCL 05783333234 No Longer Active Tariq Marrero MD Active SM VITAMIN B12 TR 1000 MCG ORAL TABLET EXTENDED RELEASE 1 tab po daily 04/24 CYANOCOBALAMIN 90500960308 No Longer Active Nereyda Rodriguez APRN Active CARAFATE 1 GM ORAL TABLET 1 tab po as needed up to 4 times per day SUCRALFATE 46627741926 No Longer Active Nereyda Rodriguez APRN Active PNV PLUS MULTIVITAMIN 27-1 MG ORAL TABLET 1 daily 04/24 VIT-FE FUMARATE-FA 80862490083 No Longer Active Sasha Tan APRN Active CHANTIX STARTING MONTH DANILO 0.5 MG X 11 & 1 MG X 42 ORAL TABLET take as directed VARENICLINE TARTRATE 15892620408 No Longer Active Sasha Tan APRN Active CHANTIX 1 MG ORAL TABLET 1 twice a day to help quit smoking 04/24 VARENICLINE TARTRATE 66630923311 No Longer Active Sasha Tan APRN Active OMEPRAZOLE 20 MG ORAL CAPSULE DELAYED RELEASE 1 tablet by mouth daily OMEPRAZOLE 07518400249 Active Sasha Tan APRN Active FLINSTONES GUMMIES OMEGA-3 DHA ORAL TABLET CHEWABLE 2 gummies per day PEDIATRIC MULTIPLE VIT-C-FA 34947745771 Active Sasha Tan APRN Active CLINDAMYCIN HCL 150 MG ORAL CAPSULE 1 four times a day for 1 week CLINDAMYCIN HCL 97754481699 No Longer Active Karen Jaramillo MD Active TRIAMCINOLONE ACETONIDE 0.1 % EXTERNAL CREAM Apply to affected areas TID for up to 1 week TRIAMCINOLONE ACETONIDE 55012264564 No Longer Active Rian Ortega MD Active ZITHROMAX 1 GM ORAL PACKET Take 1 time and recheck lab in 2-3 weeks AZITHROMYCIN 85431401520 No Longer Active Rian Ortega MD Active FLAGYL 500 MG ORAL TABLET four tabs PO x 1 METRONIDAZOLE 82533775559 No Longer Active Aris Charlton MD Active FLAGYL 500 MG ORAL TABLET four tabs PO x 1 FLAGYL 500 MG ORAL TABLET 567829 METRONIDAZOLE Inactive ZITHROMAX 1 GM ORAL PACKET Take 1 time and recheck lab in 2-3 weeks ZITHROMAX 1 GM ORAL PACKET 110543 AZITHROMYCIN Inactive TRIAMCINOLONE ACETONIDE 0.1 % EXTERNAL CREAM Apply to affected areas TID for up to 1 week TRIAMCINOLONE ACETONIDE 0.1 % EXTERNAL CREAM 4486519 TRIAMCINOLONE ACETONIDE Inactive CLINDAMYCIN HCL 150 MG ORAL CAPSULE 1 four times a day for 1 week CLINDAMYCIN HCL 150 MG ORAL CAPSULE 661837 CLINDAMYCIN HCL Inactive CHANTIX 1 MG ORAL [...] per day CARAFATE 1 GM ORAL TABLET 384888 SUCRALFATE Inactive SM VITAMIN B12 TR 1000 MCG ORAL TABLET EXTENDED RELEASE 1 tab po daily 04/24 SM VITAMIN B12 TR 1000 MCG ORAL TABLET EXTENDED RELEASE CYANOCOBALAMIN Inactive CIPROFLOXACIN HCL 250 MG ORAL TABLET 1 twice a day for bladder infection 2016 CIPROFLOXACIN HCL 250 MG ORAL TABLET 047746 CIPROFLOXACIN HCL Inactive AZO TABS TABLET 2 tabs qd AZO TABS TABLET PHENAZOPYRIDINE HCL TABS Inactive SYMBICORT 160-4.5 MCG/ACT INHALATION AEROSOL 2 puff BID for 10 days SYMBICORT 160-4.5 MCG/ACT INHALATION AEROSOL BUDESONIDE- FORMOTEROL FUMARATE Inactive CYCLOBENZAPRINE HCL 10 MG ORAL TABLET 1 three times a day as needed for muscle spasm CYCLOBENZAPRINE HCL 10 MG ORAL TABLET 407455 CYCLOBENZAPRINE HCL Inactive GUAIFENESIN ER 600 MG ORAL TABLET EXTENDED RELEASE 12 HOUR 1 twice a day as needed for congestion GUAIFENESIN ER 600 MG ORAL TABLET EXTENDED RELEASE 12 HOUR GUAIFENESIN Inactive BACTRIM DS 800-160 MG ORAL TABLET 1 twice a day BACTRIM DS 800-160 MG ORAL TABLET 707178 SULFAMETHOXAZOLE-TRIMETHOPRIM Inactive CIPRO 500 MG ORAL TABLET 1 tablet by mouth twice daily CIPRO 500 MG ORAL TABLET 023819 CIPROFLOXACIN HCL Inactive AZITHROMYCIN 250 MG ORAL TABLET 2 po qd x 1 day, then 1 po qd x 4 days 02/15 AZITHROMYCIN 250 MG ORAL TABLET 113930 AZITHROMYCIN Inactive AZITHROMYCIN 250 MG ORAL TABLET 2 po qd x 1 day, then 1 po qd x 4 days 07/27 AZITHROMYCIN 250 MG ORAL TABLET 329041 AZITHROMYCIN Inactive ZITHROMAX Z-DANILO 250 MG ORAL TABLET 2 today, then 1 daily for 4 days ZITHROMAX Z-DANILO 250 MG ORAL TABLET 151590 AZITHROMYCIN Inactive AMOXICILLIN 500 MG ORAL CAPSULE 1 cap by mouth three times a day AMOXICILLIN 500 MG ORAL CAPSULE 048759 AMOXICILLIN Inactive Immunizations Vaccine Administration Date Value [...] - Hematology leukocyte count, blood sent to [facility] 10^3/mm^3 10*3/mm3 4.6-10.2 Office Visit: Pre-Surgery [...] 1+ Encounters Code Encounter Date Provider Facility CPT-36083 [id number] Vst-Est Level IV 13:46:58 LABORER HOISTING Rian Orteag MD [facility] CPT-77299 Level 3 Est. Patient 16:49:52 CDT Rian Ortega MD [facility] CPT-42971 [id number] Vst-Est Level III 16:46:54 CDT Tariq Marrero MD [facility] CPT-32822 Level 3 Est. Patient 14:41:20 CDT Tariq Marrero MD [facility] CPT-59796 Level 3 Est. Patient 11:06:09 LABORER HOISTING Carline Best [facility] CPT-28817 Level 3 Est. Patient 15:59:13 LABORER HOISTING Carline Best [facility] CPT-13345 Employment/ICC Exam 15:03:09 LABORER HOISTING Sasha Tan [facility] CPT-26940 Level 3 Est. Patient 11:54:40 CDT Rian Ortega MD [facility] CPT-71934 Level 3 Est. Patient 11:17:51 CDT Carline Best [facility] CPT-29588 Level 3 Est. Patient 15:43:38 CDT Tariq Marrero MD [facility] CPT-07520 Level 3 Est. Patient 11:16:27 LABORER HOISTING Nereyda Rodriguez [facility] CPT-37339 Level 4 Est. Patient 08:56:42 LABORER HOISTING Sasha Tan [facility] CPT-02797 Level 3 Est. Patient 16:40:58 CDT Rian Ortega MD [facility] CPT-91153 Level 3 Est. Patient 13:55:16 LABORER HOISTING Rian Ortega MD [facility] CPT-81235 Level 3 Est. Patient 10:42:52 CDT Corrina Bailon [facility] CPT-11498 Level 3 Est. Patient 11:18:30 CDT Aris Charlton MD [facility] Procedures Code Procedure Name Date Entry Date Standard Description CPT-21339 Prv Med Est Pt 40-64yrs 16:49:40 CDT CPT-32985 UA w micro - LAB USE ONLY 13:09:18 LABORER HOISTING CPT-85497 Urine Culture - LAB USE ONLY 13:09:18 LABORER HOISTING CPT-32756 Wet Mount - LAB USE ONLY 11:11:39 LABORER HOISTING CPT-06665 Lipid - LAB USE ONLY 15:05:24 LABORER HOISTING CPT-24775 PT/INR - LAB USE ONLY 12:14:07 CDT CPT-27525 HGBA1C - LAB USE ONLY 12:14:07 CDT CPT-73420 CMP - LAB USE ONLY 12:14:07 CDT CPT-93769 CBC - LAB USE ONLY 12:14:07 CDT CPT-55373 Venipuncture Draw Fee 12:14:06 CDT CPT-J0702 Celestone 6 mg (Betamethasone) 15:04:45 LABORER HOISTING CPT-72794 Abx/Therapy Injection 15:04:45 LABORER HOISTING CPT-J0702 Celestone 12 mg (Betamethasone) 11:45:31 LABORER HOISTING CPT-63184 Visit 11:39:52 LABORER HOISTING CPT-71587H Sono biophysical pro wo stress test-[place] Only 11:21: 42 LABORER HOISTING CPT-53732 Visit 16:00:50 LABORER HOISTING CPT-51794N Sono biophysical pro wo stress test-[place] Only 13:12: 18 LABORER HOISTING CPT-49110 Sono biophysical pro wo stress test 11:17:21 LABORER HOISTING 05/21 CPT-00972 Tdap 7yrs or > 15:22:51 LABORER HOISTING CPT-18925 Immunization Single Admin 15:22:51 LABORER HOISTING CPT-04528 Tdap 7yrs or > 15:09:13 LABORER HOISTING CPT-24901 Visit 14:54:16 LABORER HOISTING CPT-69374 Fluzone Quadrivalent Intramuscular Suspension 0.5 ML 16: 58:58 CDT CPT-42436 Administration single or combination vaccine inc oral 16 :58:58 CDT CPT-85256 Fluzone Thim Free 36mo and older 14:47:39 CDT CPT-63145 Visit 14:47:39 CDT CPT-54922 Sono OB limited 10:30:07 CDT CPT-65618 Visit 10:04:44 CDT CPT-75016 Sono OB comp > 14 weeks 12:50:41 CDT CPT-92975 Visit 12:06:25 CDT CPT-06389 Visit 12:43:15 CDT CPT-87686 Visit 10:06:02 CDT CPT-64452 Spec Collection and Handling Fee 10:00:31 CDT CPT-92162 Visit 10:00:30 CDT CPT-56645 Drug Screen [place] 14:36:13 CDT
--- OUTSIDE RECORDS SUMMARY | 2018-08-28 06:00 | XMS REPORT | Clinical Summary ---
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 V72.31 Active Sasha Tan APRN Routine gynecological examination Bariatric operative procedure V45.86 Active Mariely Dalerolanda RMA Bariatric surgery status Physical examination V70.0 Active Sasha Tan APRN Routine general medical examination at a health care facility Dysuria 788.1 Resolved Rian Ortega MD Dysuria Urinary tract infection 599.0 Active Nereyda Rodriguez APRN Urinary tract infection, site not specified Bronchitis 490 Resolved Rian Ortega MD Bronchitis, not specified as acute or chronic Shoulder pain, left 719.41 Active Rian Ortega MD Pain in joint involving shoulder region Overweight 278.02 Active Rian Ortega MD Overweight Thoracic back pain 724.5 Active Rian Ortega MD Backache, unspecified Fatigue 780.79 Active Carline Best APRN Other malaise and fatigue Cough 786.2 Active Carline Best APRN Cough Myalgias 729.1 Inactive Tariq Marrero MD Myalgia and myositis, unspecified Body Mass Index 29.0-29.9 Adult Active Tariq Marrero MD Body Mass Index 29.0-29.9, adult Encounter for general adult medical examination without abnormal findings V72.3 Active Irma Nix PA-C Special investigations and examinations - Gynecological examination SINUSITIS, ACUTE 461.9 Active Tariq Marrero MD Acute sinusitis, unspecified Health examination of defined subpopulations ICD-V70.5 [...] 20 weeks gestation of ICD-V28.9 Inactive Deepika MCQUEENT Low lying placenta ICD-762.2 Inactive Rian Ortega MD 28 weeks gestation of ICD-V28.9 Inactive Rian Ortega MD Polyhydramnios, antepartum ICD-657.03 Inactive Rian Ortega MD 29 weeks gestation of ICD-V28.9 Inactive Deepika MCQUEENT Cellulitis ICD-682.9 Inactive Rian Ortega MD Abscess, skin ICD-682.9 Inactive Rian Ortega MD 30 weeks gestation of ICD-V28.9 Inactive Deepika MCQUEENT 31 weeks gestation of ICD-V28.9 Inactive Deepika MCQUEENT Morbid obesity ICD-278.01 Inactive Rian Ortega MD Dysuria ICD-788.1 Inactive Rian Ortega MD 03/29 Bronchitis ICD-490 Inactive Rian Ortega MD 2016 Myalgias ICD-729.1 Inactive Tariq Marrero MD Medication List Medication Instructions Start Date Stop Date Generic Name NDC Status Provider Patient Instruction AMOXICILLIN 500 MG ORAL CAPSULE 1 cap by mouth three times a day AMOXICILLIN 85679416699 Active Tariq Marrero MD Active BACTRIM DS 800-160 MG ORAL TABLET 1 twice a day SULFAMETHOXAZOLE-TRIMETHOPRIM 93550250638 No Longer Active Irma Michaels Active ZITHROMAX Z-DANILO 250 MG ORAL TABLET 2 today, then 1 daily for 4 days AZITHROMYCIN 51433461822 No Longer Active Mahsa Alvarez Active AZITHROMYCIN 250 MG ORAL TABLET 2 po qd x 1 day, then 1 po qd x 4 days 07/27 AZITHROMYCIN 79058986699 No Longer Active Carline Best APRN Active GUAIFENESIN ER 600 MG ORAL TABLET EXTENDED RELEASE 12 HOUR 1 twice a day as needed for congestion GUAIFENESIN 61440696812 No Longer Active Sasha Tan APRN Active CYCLOBENZAPRINE HCL 10 MG ORAL TABLET 1 three times a day as needed for muscle spasm CYCLOBENZAPRINE HCL 55194898205 No Longer Active Sasha Tan APRN Active SYMBICORT 160-4.5 MCG/ACT INHALATION AEROSOL 2 puff BID for 10 days BUDESONIDE-FORMOTEROL FUMARATE 58122943567 No Longer Active Rian Ortega MD Active AZITHROMYCIN 250 MG ORAL TABLET 2 po qd x 1 day, then 1 po qd x 4 days 02/15 AZITHROMYCIN 60704604112 No Longer Active Carline Best APRN Active CIPRO 500 MG ORAL TABLET 1 tablet by mouth twice daily CIPROFLOXACIN HCL 55644018090 No Longer Active Tariq Marrero MD Active AZO TABS TABLET 2 tabs qd PHENAZOPYRIDINE HCL TABS 79295073460 No Longer Active Tariq Marrero MD Active CIPROFLOXACIN HCL 250 MG ORAL TABLET 1 twice a day for bladder infection 2016 CIPROFLOXACIN HCL 55999212672 No Longer Active Tariq Marrero MD Active SM VITAMIN B12 TR 1000 MCG ORAL TABLET EXTENDED RELEASE 1 tab po daily 04/24 CYANOCOBALAMIN 53596700377 No Longer Active Nereyda Rodriguez APRN Active CARAFATE 1 GM ORAL TABLET 1 tab po as needed up to 4 times per day SUCRALFATE 24322839691 No Longer Active Nereyda Rodriguez APRN Active PNV PLUS MULTIVITAMIN 27-1 MG ORAL TABLET 1 daily 04/24 VIT-FE FUMARATE-FA 53187658099 No Longer Active Sasha Tan APRN Active CHANTIX STARTING MONTH DANILO 0.5 MG X 11 & 1 MG X 42 ORAL TABLET take as directed VARENICLINE TARTRATE 09333677866 No Longer Active Sasha Tan APRN Active CHANTIX 1 MG ORAL TABLET 1 twice a day to help quit smoking 04/24 VARENICLINE TARTRATE 44026551295 No Longer Active Sasha Tan APRN Active OMEPRAZOLE 20 MG ORAL CAPSULE DELAYED RELEASE 1 tablet by mouth daily OMEPRAZOLE 79061480809 Active Sasha Tan APRN Active FLINSTONES GUMMIES OMEGA-3 DHA ORAL TABLET CHEWABLE 2 gummies per day PEDIATRIC MULTIPLE VIT-C-FA 46233850561 Active Sasha Tan APRN Active CLINDAMYCIN HCL 150 MG ORAL CAPSULE 1 four times a day for 1 week CLINDAMYCIN HCL 84352270206 No Longer Active Karen Jaramillo MD Active TRIAMCINOLONE ACETONIDE 0.1 % EXTERNAL CREAM Apply to affected areas TID for up to 1 week TRIAMCINOLONE ACETONIDE 63652761180 No Longer Active Rian Ortega MD Active ZITHROMAX 1 GM ORAL PACKET Take 1 time and recheck lab in 2-3 weeks AZITHROMYCIN 90165446926 No Longer Active Rian Ortega MD Active FLAGYL 500 MG ORAL TABLET four tabs PO x 1 METRONIDAZOLE 74639264975 No Longer Active Aris Charlton MD Active FLAGYL 500 MG ORAL TABLET four tabs PO x 1 FLAGYL 500 MG ORAL TABLET 468741 METRONIDAZOLE Inactive ZITHROMAX 1 GM ORAL PACKET Take 1 time and recheck lab in 2-3 weeks ZITHROMAX 1 GM ORAL PACKET 322829 AZITHROMYCIN Inactive TRIAMCINOLONE ACETONIDE 0.1 % EXTERNAL CREAM Apply to affected areas TID for up to 1 week TRIAMCINOLONE ACETONIDE 0.1 % EXTERNAL CREAM 0646853 TRIAMCINOLONE ACETONIDE Inactive CLINDAMYCIN HCL 150 MG ORAL CAPSULE 1 four times a day for 1 week CLINDAMYCIN HCL 150 MG ORAL CAPSULE 705982 CLINDAMYCIN HCL Inactive CHANTIX 1 MG ORAL [...] per day CARAFATE 1 GM ORAL TABLET 570276 SUCRALFATE Inactive SM VITAMIN B12 TR 1000 MCG ORAL TABLET EXTENDED RELEASE 1 tab po daily 04/24 SM VITAMIN B12 TR 1000 MCG ORAL TABLET EXTENDED RELEASE CYANOCOBALAMIN Inactive CIPROFLOXACIN HCL 250 MG ORAL TABLET 1 twice a day for bladder infection 2016 CIPROFLOXACIN HCL 250 MG ORAL TABLET 194119 CIPROFLOXACIN HCL Inactive AZO TABS TABLET 2 tabs qd AZO TABS TABLET PHENAZOPYRIDINE HCL TABS Inactive SYMBICORT 160-4.5 MCG/ACT INHALATION AEROSOL 2 puff BID for 10 days SYMBICORT 160-4.5 MCG/ACT INHALATION AEROSOL BUDESONIDE- FORMOTEROL FUMARATE Inactive CYCLOBENZAPRINE HCL 10 MG ORAL TABLET 1 three times a day as needed for muscle spasm CYCLOBENZAPRINE HCL 10 MG ORAL TABLET 869498 CYCLOBENZAPRINE HCL Inactive GUAIFENESIN ER 600 MG ORAL TABLET EXTENDED RELEASE 12 HOUR 1 twice a day as needed for congestion GUAIFENESIN ER 600 MG ORAL TABLET EXTENDED RELEASE 12 HOUR GUAIFENESIN Inactive BACTRIM DS 800-160 MG ORAL TABLET 1 twice a day BACTRIM DS 800-160 MG ORAL TABLET 069645 SULFAMETHOXAZOLE-TRIMETHOPRIM Inactive CIPRO 500 MG ORAL TABLET 1 tablet by mouth twice daily CIPRO 500 MG ORAL TABLET 834055 CIPROFLOXACIN HCL Inactive AZITHROMYCIN 250 MG ORAL TABLET 2 po qd x 1 day, then 1 po qd x 4 days 02/15 AZITHROMYCIN 250 MG ORAL TABLET 888592 AZITHROMYCIN Inactive AZITHROMYCIN 250 MG ORAL TABLET 2 po qd x 1 day, then 1 po qd x 4 days 07/27 AZITHROMYCIN 250 MG ORAL TABLET 469198 AZITHROMYCIN Inactive ZITHROMAX Z-DANILO 250 MG ORAL TABLET 2 today, then 1 daily for 4 days ZITHROMAX Z-DANILO 250 MG ORAL TABLET 681673 AZITHROMYCIN Inactive Immunizations Vaccine Administration Date Value Standard Description hepatitis B vaccine series yes hepatitis B vaccine, unspecified formulation Vital Signs Date Name Value Unit Range Description blood pressure, diastolic 72 mm[Hg] BP calvo [...] temperature weight E&M 161 [lb_av] Weight Measured blood pressure, diastolic 73 mm[Hg] BP calvo blood pressure, systolic 120 mm[Hg] BP sys height E&M 62 [in_us] Bdy height pulse rate E&M 61 /min Heart rate temperature E&M 99.5 [degF] Body temperature weight E&M 163.31 [lb_av] Weight Measured blood pressure, diastolic 74 mm[Hg] BP calvo blood pressure, systolic 116 mm[Hg] BP sys height E&M 62 [in_us] Bdy height pulse rate E&M 80 /min Heart rate temperature E&M 98.9 [degF] Body temperature weight E&M 159 [lb_av] Weight Measured blood pressure, diastolic 59 mm[Hg] BP calvo blood pressure, systolic 114 mm[Hg] BP sys pulse rate E&M 80 /min Heart rate temperature E&M 98.9 [degF] Body temperature weight E&M 155.5 [lb_av] Weight Measured Diagnostic Results Date Name Value Unit Range Description Immunizations: TB Skin Test - Challenge tests PPD results in mm 0 mm Lab Report: CBC W/DIFF - Hematology leukocyte count, blood sent to [facility] 10^3/mm^3 10*3/mm3 4.6-10.2 Lab Report: CBC, Lipid Panel, Thyroid Stimulating Hormone (L), Free Thyr ... - Chemistry triglyceride, serum, fasting 77 mg/dL 30-200 HDL cholesterol, serum 62 mg/dL 32-60 LDL cholesterol, serum 65 mg/dL 0-130 TSH 1.48 m[iU]/mL 0.36-3.74 thyroxine, serum, free 0.94 ng/dL 0.59-1.17 hemoglobin A1C, blood, as % of total hemoglobin 5.0 % 4.3-6.0 cholesterol, serum 142 mg/dL 130-200 Lab Report: CBC, Lipid Panel, Thyroid Stimulating Hormone (L), Free Thyr ... - Hematology platelet count 291 10^3/MM^3 10*3/mm3 304-648 2067/10/24 red blood cell distribution width 14.3 % 11.6-14.8 mean corpuscular hemoglobin concentration, RBC 32.7 G/DL % 31.8- 35.4 mean corpuscular hemoglobin, RBC 29.5 pg 27.0-31.2 mean corpuscular volume, RBC 90 fL 80-97 hematocrit, blood 40.6 % 37.0-47.0 hemoglobin, blood 13.3 g/dL 12.0-16.0 erythrocyte (RBC) count 4.51 10^6/MM^3 10*6/mm3 3.80-5.80 leukocyte count, blood 6.9 10^3/MM^3 10*3/mm3 4.6-10.2 Lab Report: Comp. Metabolic Panel - Chemistry sodium, serum 137 mmol/L 164-944 1837/10/24 carbon dioxide, venous blood 24.4 mmol/L 21.0-32.0 potassium, serum 4.7 mmol/L 3.5-5.2 chloride, serum 104 mmol/L 98-107 blood glucose 85 mg/dL 65-110 urea nitrogen, blood 11 mg/dL 7-18 creatinine, serum 0.82 mg/dL 0.60-1.30 alanine aminotransferase (SGPT), serum 29 U/L 12-78 aspartate aminotransferase (SGOT), serum 16 U/L 15-37 calcium, serum 8.4 mg/dL 8.5-10.1 bilirubin, serum, total 0.60 mg/dL 0.00-1.00 Lab Report: ELIAZAR INFLUENZA A/B - Toxicology rapid flu test Negative Negative;Positive Office Visit: UTI - Chemistry RBC, urine, dipstick trace Office Visit: UTI - Urinalysis nitrite, urine, semiquantitative positive urobilinogen, urine, semiquantitative (dipstick) 0.2 leukocyte esterase, urine, by dipstick 2+ appearance, urine cloudy urine color red specific gravity, urine 1.010 pH, urine, semiquantitative 7.5 glucose, urine, semiquantitative 1+ ketones, urine, by test strip trace bilirubin, urine 1+ Encounters Code Encounter Date Provider Facility CPT-52483 [id number] Vst-Est Level III 16:46:54 CDT Tariq Marrero MD [facility] CPT-93205 Level 3 Est. Patient 14:41:20 CDT Tariq Marrero MD [facility] CPT-95838 Level 3 Est. Patient 11:06:09 BREAD WRAPPER Carline Best [facility] CPT-65936 Level 3 Est. Patient 15:59:13 BREAD WRAPPER Carline Best [facility] CPT-63698 Employment/ICC Exam 15:03:09 BREAD WRAPPER Sasha Tan [facility] CPT-51581 Level 3 Est. Patient 11:54:40 CDT Rian Ortega MD [facility] CPT-42939 Level 3 Est. Patient 11:17:51 CDT Carline Best [facility] CPT-25697 Level 3 Est. Patient 15:43:38 CDT Tariq Marrero MD [facility] CPT-18599 Level 3 Est. Patient 11:16:27 BREAD WRAPPER Nereyda Rodriguez [facility] CPT-22091 Level 4 Est. Patient 08:56:42 BREAD WRAPPER Sasha Tan [facility] CPT-24871 Level 3 Est. Patient 16:40:58 CDT Rian Ortega MD [facility] CPT-05548 Level 3 Est. Patient 13:55:16 BREAD WRAPPER Rian Ortega MD [facility] CPT-33029 Level 3 Est. Patient 10:42:52 CDT Corrina Uvaldo [facility] CPT-12719 Level 3 Est. Patient 11:18:30 CDT Aris Charlton MD [facility] Procedures Code Procedure Name Date Entry Date Standard Description CPT-26514 Prv Med Est Pt 40-64yrs 16:49:40 CDT CPT-63125 UA w micro - LAB USE ONLY 13:09:18 BREAD WRAPPER CPT-06709 Urine Culture - LAB USE ONLY 13:09:18 BREAD WRAPPER CPT-57185 Wet Mount - LAB USE ONLY 11:11:39 BREAD WRAPPER CPT-50544 Lipid - LAB USE ONLY 15:05:24 BREAD WRAPPER CPT-05008 PT/INR - LAB USE ONLY 12:14:07 CDT CPT-18883 HGBA1C - LAB USE ONLY 12:14:07 CDT CPT-04081 CMP - LAB USE ONLY 12:14:07 CDT CPT-86741 CBC - LAB USE ONLY 12:14:07 CDT CPT-04079 Venipuncture Draw Fee 12:14:06 CDT CPT-J0702 Celestone 6 mg (Betamethasone) 15:04:45 BREAD WRAPPER CPT-84733 Abx/Therapy Injection 15:04:45 BREAD WRAPPER CPT-J0702 Celestone 12 mg (Betamethasone) 11:45:31 BREAD WRAPPER CPT-03120 Visit 11:39:52 BREAD WRAPPER CPT-95481I Sono biophysical pro wo stress test-[facility] 11:21: 42 BREAD WRAPPER CPT-20872 Visit 16:00:50 BREAD WRAPPER CPT-30972I Sono biophysical pro wo stress test-[facility] 13:12: 18 BREAD WRAPPER CPT-37063 Sono biophysical pro wo stress test 11:17:21 BREAD WRAPPER 05/21 CPT-38254 Tdap 7yrs or > 15:22:51 BREAD WRAPPER CPT-02296 Immunization Single Admin 15:22:51 BREAD WRAPPER CPT-73063 Tdap 7yrs or > 15:09:13 BREAD WRAPPER CPT-66963 Visit 14:54:16 BREAD WRAPPER CPT-07839 Fluzone Quadrivalent Intramuscular Suspension 0.5 ML 16: 58:58 CDT CPT-87149 Administration single or combination vaccine inc oral 16 :58:58 CDT CPT-85408 Fluzone Thim Free 36mo and older 14:47:39 CDT CPT-32870 Visit 14:47:39 CDT CPT-91594 Sono OB limited 10:30:07 CDT CPT-05807 Visit 10:04:44 CDT CPT-87983 Sono OB comp > 14 weeks 12:50:41 CDT CPT-44548 Visit 12:06:25 CDT CPT-38489 Visit 12:43:15 CDT CPT-91604 Visit 10:06:02 CDT CPT-53679 Spec Collection and Handling Fee 10:00:31 CDT CPT-04824 Visit 10:00:30 CDT CPT-79538 Drug Screen Grisel 14:36:13 CDT
--- OUTSIDE RECORDS SUMMARY | 2018-08-28 06:00 | XMS REPORT | Clinical Summary ---
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 Active Sasha Tan [...] by mouth three times a day AMOXICILLIN 63800885233 No Longer Active Tariq Marrero MD Active BACTRIM DS 800-160 MG ORAL TABLET 1 twice a day SULFAMETHOXAZOLE-TRIMETHOPRIM 39935549444 No Longer Active Irma Michaels Active ZITHROMAX Z-DANILO 250 MG ORAL TABLET 2 today, then 1 daily for 4 days AZITHROMYCIN 89857244667 No Longer Active Mahsa Alvarez Active AZITHROMYCIN 250 MG ORAL TABLET 2 po qd x 1 day, then 1 po qd x 4 days 07/27 AZITHROMYCIN 80405348997 No Longer Active Carline Best APRN Active GUAIFENESIN ER 600 MG ORAL TABLET EXTENDED RELEASE 12 HOUR 1 twice a day as needed for congestion GUAIFENESIN 59806565683 No Longer Active Sasha Tan APRN Active CYCLOBENZAPRINE HCL 10 MG ORAL TABLET 1 three times a day as needed for muscle spasm CYCLOBENZAPRINE HCL 70822666544 No Longer Active Sasha Tan APRN Active SYMBICORT 160-4.5 MCG/ACT INHALATION AEROSOL 2 puff BID for 10 days BUDESONIDE-FORMOTEROL FUMARATE 61063179035 No Longer Active Rian Ortega MD Active AZITHROMYCIN 250 MG ORAL TABLET 2 po qd x 1 day, then 1 po qd x 4 days 02/15 AZITHROMYCIN 03733665398 No Longer Active Carline Best APRN Active CIPRO 500 MG ORAL TABLET 1 tablet by mouth twice daily CIPROFLOXACIN HCL 81794646234 No Longer Active Tariq Marrero MD Active AZO TABS TABLET 2 tabs qd PHENAZOPYRIDINE HCL TABS 44494990019 No Longer Active Tariq Marrero MD Active CIPROFLOXACIN HCL 250 MG ORAL TABLET 1 twice a day for bladder infection 2016 CIPROFLOXACIN HCL 28359308686 No Longer Active Tariq Marrero MD Active SM VITAMIN B12 TR 1000 MCG ORAL TABLET EXTENDED RELEASE 1 tab po daily 04/24 CYANOCOBALAMIN 72911191899 No Longer Active Nereyda Rodriguez APRN Active CARAFATE 1 GM ORAL TABLET 1 tab po as needed up to 4 times per day SUCRALFATE 45984489477 No Longer Active Nereyda Rodriguez APRN Active PNV PLUS MULTIVITAMIN 27-1 MG ORAL TABLET 1 daily 04/24 VIT-FE FUMARATE-FA 63188942283 No Longer Active Sasha Tan APRN Active CHANTIX STARTING MONTH DANILO 0.5 MG X 11 & 1 MG X 42 ORAL TABLET take as directed VARENICLINE TARTRATE 64206631058 No Longer Active Sasha Tan APRN Active CHANTIX 1 MG ORAL TABLET 1 twice a day to help quit smoking 04/24 VARENICLINE TARTRATE 71563826677 No Longer Active Sasha Tan APRN Active OMEPRAZOLE 20 MG ORAL CAPSULE DELAYED RELEASE 1 tablet by mouth daily OMEPRAZOLE 67468100174 Active Sasha Tan APRN Active FLINSTONES GUMMIES OMEGA-3 DHA ORAL TABLET CHEWABLE 2 gummies per day PEDIATRIC MULTIPLE VIT-C-FA 16142531787 Active Sasha Tan APRN Active CLINDAMYCIN HCL 150 MG ORAL CAPSULE 1 four times a day for 1 week CLINDAMYCIN HCL 37227702904 No Longer Active Karen Jaramillo MD Active TRIAMCINOLONE ACETONIDE 0.1 % EXTERNAL CREAM Apply to affected areas TID for up to 1 week TRIAMCINOLONE ACETONIDE 49477543917 No Longer Active Rian Ortega MD Active ZITHROMAX 1 GM ORAL PACKET Take 1 time and recheck lab in 2-3 weeks AZITHROMYCIN 28985762181 No Longer Active Rian Ortega MD Active FLAGYL 500 MG ORAL TABLET four tabs PO x 1 METRONIDAZOLE 19547020753 No Longer Active Aris Charlton MD Active FLAGYL 500 MG ORAL TABLET four tabs PO x 1 FLAGYL 500 MG ORAL TABLET 826592 METRONIDAZOLE Inactive ZITHROMAX 1 GM ORAL PACKET Take 1 time and recheck lab in 2-3 weeks ZITHROMAX 1 GM ORAL PACKET 068614 AZITHROMYCIN Inactive TRIAMCINOLONE ACETONIDE 0.1 % EXTERNAL CREAM Apply to affected areas TID for up to 1 week TRIAMCINOLONE ACETONIDE 0.1 % EXTERNAL CREAM 5808141 TRIAMCINOLONE ACETONIDE Inactive CLINDAMYCIN HCL 150 MG ORAL CAPSULE 1 four times a day for 1 week CLINDAMYCIN HCL 150 MG ORAL CAPSULE 153839 CLINDAMYCIN HCL Inactive CHANTIX 1 MG ORAL [...] per day CARAFATE 1 GM ORAL TABLET 230308 SUCRALFATE Inactive SM VITAMIN B12 TR 1000 MCG ORAL TABLET EXTENDED RELEASE 1 tab po daily 04/24 SM VITAMIN B12 TR 1000 MCG ORAL TABLET EXTENDED RELEASE CYANOCOBALAMIN Inactive CIPROFLOXACIN HCL 250 MG ORAL TABLET 1 twice a day for bladder infection 2016 CIPROFLOXACIN HCL 250 MG ORAL TABLET 887827 CIPROFLOXACIN HCL Inactive AZO TABS TABLET 2 tabs qd AZO TABS TABLET PHENAZOPYRIDINE HCL TABS Inactive SYMBICORT 160-4.5 MCG/ACT INHALATION AEROSOL 2 puff BID for 10 days SYMBICORT 160-4.5 MCG/ACT INHALATION AEROSOL BUDESONIDE- FORMOTEROL FUMARATE Inactive CYCLOBENZAPRINE HCL 10 MG ORAL TABLET 1 three times a day as needed for muscle spasm CYCLOBENZAPRINE HCL 10 MG ORAL TABLET 665898 CYCLOBENZAPRINE HCL Inactive GUAIFENESIN ER 600 MG ORAL TABLET EXTENDED RELEASE 12 HOUR 1 twice a day as needed for congestion GUAIFENESIN ER 600 MG ORAL TABLET EXTENDED RELEASE 12 HOUR GUAIFENESIN Inactive BACTRIM DS 800-160 MG ORAL TABLET 1 twice a day BACTRIM DS 800-160 MG ORAL TABLET 297847 SULFAMETHOXAZOLE-TRIMETHOPRIM Inactive CIPRO 500 MG ORAL TABLET 1 tablet by mouth twice daily CIPRO 500 MG ORAL TABLET 202111 CIPROFLOXACIN HCL Inactive AZITHROMYCIN 250 MG ORAL TABLET 2 po qd x 1 day, then 1 po qd x 4 days 02/15 AZITHROMYCIN 250 MG ORAL TABLET 637008 AZITHROMYCIN Inactive AZITHROMYCIN 250 MG ORAL TABLET 2 po qd x 1 day, then 1 po qd x 4 days 07/27 AZITHROMYCIN 250 MG ORAL TABLET 802146 AZITHROMYCIN Inactive ZITHROMAX Z-DANILO 250 MG ORAL TABLET 2 today, then 1 daily for 4 days ZITHROMAX Z-DANILO 250 MG ORAL TABLET 081043 AZITHROMYCIN Inactive AMOXICILLIN 500 MG ORAL CAPSULE 1 cap by mouth three times a day AMOXICILLIN 500 MG ORAL CAPSULE 945075 AMOXICILLIN Inactive Immunizations Vaccine Administration Date Value [...] - Hematology leukocyte count, blood sent to [facility] 10^3/mm^3 10*3/mm3 4.6-10.2 Office Visit: UTI - Chemistry RBC, urine, dipstick trace Office Visit: UTI - Urinalysis nitrite, urine, semiquantitative positive urobilinogen, urine, semiquantitative (dipstick) 0.2 leukocyte esterase, urine, by dipstick 2+ appearance, urine cloudy urine color red specific gravity, urine 1.010 pH, urine, semiquantitative 7.5 glucose, urine, semiquantitative 1+ ketones, urine, by test strip trace bilirubin, urine 1+ Encounters Code Encounter Date Provider Facility CPT-86693 Level 3 Est. Patient 16:49:52 CDT Rian Ortega MD [facility] CPT-71930 [id number] Vst-Est Level III 16:46:54 CDT Tariq Marrero MD [facility] CPT-77703 Level 3 Est. Patient 14:41:20 CDT Tariq Marrero MD [facility] CPT-70460 Level 3 Est. Patient 11:06:09 MANAGER INSPECTION Jillina Frazell [facility] CPT-85932 Level 3 Est. Patient 15:59:13 MANAGER INSPECTION Bandarmalachi Rosettepanfilo [facility] CPT-19228 Employment/ICC Exam 15:03:09 MANAGER INSPECTION Sasha Ericchey [facility] CPT-04348 Level 3 Est. Patient 11:54:40 CDT Rian Ortega MD [facility] CPT-99974 Level 3 Est. Patient 11:17:51 CDT Carline Best [facility] CPT-03878 Level 3 Est. Patient 15:43:38 CDT Tariq Marrero MD [facility] CPT-31302 Level 3 Est. Patient 11:16:27 MANAGER INSPECTION Nereyda Rodriguez [facility] CPT-41896 Level 4 Est. Patient 08:56:42 MANAGER INSPECTION Sasha Tan [facility] CPT-14059 Level 3 Est. Patient 16:40:58 CDT Rian Ortega MD [facility] CPT-32582 Level 3 Est. Patient 13:55:16 MANAGER INSPECTION Rian Ortega MD [facility] CPT-06685 Level 3 Est. Patient 10:42:52 CDT Corrina Bailon [facility] CPT-37509 Level 3 Est. Patient 11:18:30 CDT Aris Charlton MD [facility] Procedures Code Procedure Name Date Entry Date Standard Description CPT-42484 Prv Med Est Pt 40-64yrs 16:49:40 CDT CPT-52524 UA w micro - LAB USE ONLY 13:09:18 MANAGER INSPECTION CPT-68429 Urine Culture - LAB USE ONLY 13:09:18 MANAGER INSPECTION CPT-82089 Wet Mount - LAB USE ONLY 11:11:39 MANAGER INSPECTION CPT-61531 Lipid - LAB USE ONLY 15:05:24 MANAGER INSPECTION CPT-24683 PT/INR - LAB USE ONLY 12:14:07 CDT CPT-67002 HGBA1C - LAB USE ONLY 12:14:07 CDT CPT-14023 CMP - LAB USE ONLY 12:14:07 CDT CPT-00982 CBC - LAB USE ONLY 12:14:07 CDT CPT-76227 Venipuncture Draw Fee 12:14:06 CDT CPT-J0702 Celestone 6 mg (Betamethasone) 15:04:45 MANAGER INSPECTION CPT-73756 Abx/Therapy Injection 15:04:45 MANAGER INSPECTION CPT-J0702 Celestone 12 mg (Betamethasone) 11:45:31 MANAGER INSPECTION CPT-34444 Visit 11:39:52 MANAGER INSPECTION CPT-37300G Sono biophysical pro wo stress test-[place] Only 11:21: 42 MANAGER INSPECTION CPT-35469 Visit 16:00:50 MANAGER INSPECTION CPT-44379O Son[employer] biophysical pro wo stress test-[place] Only 13:12: 18 MANAGER INSPECTION CPT-20106 Sono biophysical pro wo stress test 11:17:21 MANAGER INSPECTION 05/21 CPT-62406 Tdap 7yrs or > 15:22:51 MANAGER INSPECTION CPT-41705 Immunization Single Admin 15:22:51 MANAGER INSPECTION CPT-43633 Tdap 7yrs or > 15:09:13 MANAGER INSPECTION CPT-63161 Visit 14:54:16 MANAGER INSPECTION CPT-90724 Fluzone Quadrivalent Intramuscular Suspension 0.5 ML 16: 58:58 CDT CPT-17546 Administration single or combination vaccine inc oral 16 :58:58 CDT CPT-73834 Fluzone Thim Free 36mo and older 14:47:39 CDT CPT-14478 Visit 14:47:39 CDT CPT-57830 Sono OB limited 10:30:07 CDT CPT-11077 Visit 10:04:44 CDT CPT-55815 Sono OB comp > 14 weeks 12:50:41 CDT CPT-61019 Visit 12:06:25 CDT CPT-87478 Visit 12:43:15 CDT CPT-29976 Visit 10:06:02 CDT CPT-17944 Spec Collection and Handling Fee 10:00:31 CDT CPT-28262 Visit 10:00:30 CDT CPT-40792 Drug Screen [place] 14:36:13 CDT
--- OUTSIDE RECORDS SUMMARY | 2018-08-28 06:01 | XMS REPORT | Clinical Summary ---
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 exam V72.31 Active Sasha Tan APRN Routine gynecological examination Bariatric operative procedure V45.86 Active Mariely King RMA Bariatric surgery status Physical examination V70.0 [...] Rian Ortega MD Dysuria ICD-788.1 Inactive Rian Otrega MD 03/29 Bronchitis ICD-490 Inactive Rian Ortega MD 2016 Myalgias ICD-729.1 Inactive Tariq Marrero MD Medication List Medication Instructions Start Date Stop Date Generic Name NDC Status Provider Patient Instruction AMOXICILLIN 500 MG ORAL CAPSULE 1 cap by mouth three times a day AMOXICILLIN 46584001365 Active Tariq Marrero MD Active BACTRIM DS 800-160 MG ORAL TABLET 1 twice a day SULFAMETHOXAZOLE-TRIMETHOPRIM 82485745153 No Longer Active Irma Michaels Active ZITHROMAX Z-DANILO 250 MG ORAL TABLET 2 today, then 1 daily for 4 days AZITHROMYCIN 47804152749 No Longer Active Mahsa Alvarez Active AZITHROMYCIN 250 MG ORAL TABLET 2 po qd x 1 day, then 1 po qd x 4 days 07/27 AZITHROMYCIN 00149072784 No Longer Active Carline Best APRN Active GUAIFENESIN ER 600 MG ORAL TABLET EXTENDED RELEASE 12 HOUR 1 twice a day as needed for congestion GUAIFENESIN 90266621825 No Longer Active Sasha Tan APRN Active CYCLOBENZAPRINE HCL 10 MG ORAL TABLET 1 three times a day as needed for muscle spasm CYCLOBENZAPRINE HCL 95708958819 No Longer Active Sasha Tan APRN Active SYMBICORT 160-4.5 MCG/ACT INHALATION AEROSOL 2 puff BID for 10 days BUDESONIDE-FORMOTEROL FUMARATE 59239142777 No Longer Active Rian Ortega MD Active AZITHROMYCIN 250 MG ORAL TABLET 2 po qd x 1 day, then 1 po qd x 4 days 02/15 AZITHROMYCIN 85050003726 No Longer Active Carline Best APRN Active CIPRO 500 MG ORAL TABLET 1 tablet by mouth twice daily CIPROFLOXACIN HCL 49498899378 No Longer Active Tariq Marrero MD Active AZO TABS TABLET 2 tabs qd PHENAZOPYRIDINE HCL TABS 39574196917 No Longer Active Tariq Marrero MD Active CIPROFLOXACIN HCL 250 MG ORAL TABLET 1 twice a day for bladder infection 2016 CIPROFLOXACIN HCL 72938799468 No Longer Active Tariq Marrero MD Active SM VITAMIN B12 TR 1000 MCG ORAL TABLET EXTENDED RELEASE 1 tab po daily 04/24 CYANOCOBALAMIN 46941006485 No Longer Active Nereyda Rodriguez APRN Active CARAFATE 1 GM ORAL TABLET 1 tab po as needed up to 4 times per day SUCRALFATE 34877853237 No Longer Active Nereyda Rodriguez APRN Active PNV PLUS MULTIVITAMIN 27-1 MG ORAL TABLET 1 daily 04/24 VIT-FE FUMARATE-FA 35120012860 No Longer Active Sasha Tan APRN Active CHANTIX STARTING MONTH DANILO 0.5 MG X 11 & 1 MG X 42 ORAL TABLET take as directed VARENICLINE TARTRATE 56715403311 No Longer Active Sasha Tan APRN Active CHANTIX 1 MG ORAL TABLET 1 twice a day to help quit smoking 04/24 VARENICLINE TARTRATE 09544351375 No Longer Active Sasha Tan APRN Active OMEPRAZOLE 20 MG ORAL CAPSULE DELAYED RELEASE 1 tablet by mouth daily OMEPRAZOLE 16555452229 Active Sasha Tan APRN Active FLINSTONES GUMMIES OMEGA-3 DHA ORAL TABLET CHEWABLE 2 gummies per day PEDIATRIC MULTIPLE VIT-C-FA 63448569438 Active Sasha Tan APRN Active CLINDAMYCIN HCL 150 MG ORAL CAPSULE 1 four times a day for 1 week CLINDAMYCIN HCL 59668493196 No Longer Active Karen Jaramillo MD Active TRIAMCINOLONE ACETONIDE 0.1 % EXTERNAL CREAM Apply to affected areas TID for up to 1 week TRIAMCINOLONE ACETONIDE 02676108155 No Longer Active Rian Ortega MD Active ZITHROMAX 1 GM ORAL PACKET Take 1 time and recheck lab in 2-3 weeks AZITHROMYCIN 75733276088 No Longer Active Rian Ortega MD Active FLAGYL 500 MG ORAL TABLET four tabs PO x 1 METRONIDAZOLE 18448181987 No Longer Active Aris Charlton MD Active FLAGYL 500 MG ORAL TABLET four tabs PO x 1 FLAGYL 500 MG ORAL TABLET 524492 METRONIDAZOLE Inactive ZITHROMAX 1 GM ORAL PACKET Take 1 time and recheck lab in 2-3 weeks ZITHROMAX 1 GM ORAL PACKET 275890 AZITHROMYCIN Inactive TRIAMCINOLONE ACETONIDE 0.1 % EXTERNAL CREAM Apply to affected areas TID for up to 1 week TRIAMCINOLONE ACETONIDE 0.1 % EXTERNAL CREAM 5165887 TRIAMCINOLONE ACETONIDE Inactive CLINDAMYCIN HCL 150 MG ORAL CAPSULE 1 four times a day for 1 week CLINDAMYCIN HCL 150 MG ORAL CAPSULE 180707 CLINDAMYCIN HCL Inactive CHANTIX 1 MG ORAL [...] per day CARAFATE 1 GM ORAL TABLET 450433 SUCRALFATE Inactive SM VITAMIN B12 TR 1000 MCG ORAL TABLET EXTENDED RELEASE 1 tab po daily 04/24 SM VITAMIN B12 TR 1000 MCG ORAL TABLET EXTENDED RELEASE CYANOCOBALAMIN Inactive CIPROFLOXACIN HCL 250 MG ORAL TABLET 1 twice a day for bladder infection 2016 CIPROFLOXACIN HCL 250 MG ORAL TABLET 791456 CIPROFLOXACIN HCL Inactive AZO TABS TABLET 2 tabs qd AZO TABS TABLET PHENAZOPYRIDINE HCL TABS Inactive SYMBICORT 160-4.5 MCG/ACT INHALATION AEROSOL 2 puff BID for 10 days SYMBICORT 160-4.5 MCG/ACT INHALATION AEROSOL BUDESONIDE- FORMOTEROL FUMARATE Inactive CYCLOBENZAPRINE HCL 10 MG ORAL TABLET 1 three times a day as needed for muscle spasm CYCLOBENZAPRINE HCL 10 MG ORAL TABLET 252011 CYCLOBENZAPRINE HCL Inactive GUAIFENESIN ER 600 MG ORAL TABLET EXTENDED RELEASE 12 HOUR 1 twice a day as needed for congestion GUAIFENESIN ER 600 MG ORAL TABLET EXTENDED RELEASE 12 HOUR GUAIFENESIN Inactive BACTRIM DS 800-160 MG ORAL TABLET 1 twice a day BACTRIM DS 800-160 MG ORAL TABLET 695589 SULFAMETHOXAZOLE-TRIMETHOPRIM Inactive CIPRO 500 MG ORAL TABLET 1 tablet by mouth twice daily CIPRO 500 MG ORAL TABLET 623563 CIPROFLOXACIN HCL Inactive AZITHROMYCIN 250 MG ORAL TABLET 2 po qd x 1 day, then 1 po qd x 4 days 02/15 AZITHROMYCIN 250 MG ORAL TABLET 019082 AZITHROMYCIN Inactive AZITHROMYCIN 250 MG ORAL TABLET 2 po qd x 1 day, then 1 po qd x 4 days 07/27 AZITHROMYCIN 250 MG ORAL TABLET 163799 AZITHROMYCIN Inactive ZITHROMAX Z-DANILO 250 MG ORAL TABLET 2 today, then 1 daily for 4 days ZITHROMAX Z-DANILO 250 MG ORAL TABLET 740911 AZITHROMYCIN Inactive Immunizations Vaccine Administration Date Value [...] - Hematology leukocyte count, blood sent to [facility] 10^3/mm^3 10*3/mm3 4.6-10.2 Lab Report: CBC, Lipid Panel, Thyroid Stimulating Hormone (L), Free Thyr ... - Chemistry cholesterol, serum 142 mg/dL 547-409 4523/10/24 triglyceride, serum, fasting 77 mg/dL 30-200 HDL cholesterol, serum 62 mg/dL 32-60 LDL cholesterol, serum 65 mg/dL 0-130 TSH 1.48 m[iU]/mL 0.36-3.74 thyroxine, serum, free 0.94 ng/dL 0.59-1.17 hemoglobin A1C, blood, as % of total hemoglobin 5.0 % 4.3-6.0 Lab Report: CBC, Lipid Panel, Thyroid Stimulating Hormone (L), Free Thyr ... - Hematology mean corpuscular hemoglobin, RBC 29.5 pg 27.0-31.2 mean corpuscular hemoglobin concentration, RBC 32.7 G/DL % 31.8- 35.4 red blood cell distribution width 14.3 % 11.6-14.8 platelet count 291 10^3/MM^3 10*3/mm3 363-166 8807/10/24 mean corpuscular volume, RBC 90 fL 80-97 hematocrit, blood 40.6 % 37.0-47.0 hemoglobin, blood 13.3 g/dL 12.0-16.0 erythrocyte (RBC) count 4.51 10^6/MM^3 10*6/mm3 3.80-5.80 leukocyte count, blood 6.9 10^3/MM^3 10*3/mm3 4.6-10.2 Lab Report: Comp. Metabolic Panel - Chemistry sodium, serum 137 mmol/L 542-201 7243/10/24 carbon dioxide, venous blood 24.4 mmol/L 21.0-32.0 [...] 1+ Encounters Code Encounter Date Provider Facility CPT-06545 [id number] Vst-Est Level III 16:46:54 CDT Tariq Marrero MD [facility] CPT-63260 Level 3 Est. Patient 14:41:20 CDT Tariq Marrero MD [facility] CPT-13849 Level 3 Est. Patient 11:06:09 JIG AND FIXTURE MAKER Carline Best [facility] CPT-75063 Level 3 Est. Patient 15:59:13 JIG AND FIXTURE MAKER Carline Best [facility] CPT-01613 Employment/ICC Exam 15:03:09 JIG AND FIXTURE MAKER Sasha Tan [facility] CPT-31060 Level 3 Est. Patient 11:54:40 CDT Rian Ortega MD [facility] CPT-79197 Level 3 Est. Patient 11:17:51 CDT Carline Best [facility] CPT-74831 Level 3 Est. Patient 15:43:38 CDT Tariq Marrero MD [facility] CPT-86219 Level 3 Est. Patient 11:16:27 JIG AND FIXTURE MAKER Nereyda Rodriguez [facility] CPT-47088 Level 4 Est. Patient 08:56:42 JIG AND FIXTURE MAKER Sasha Tan [facility] CPT-99170 Level 3 Est. Patient 16:40:58 CDT Rian Ortega MD [facility] CPT-27366 Level 3 Est. Patient 13:55:16 JIG AND FIXTURE MAKER Rian Ortega MD [facility] CPT-41817 Level 3 Est. Patient 10:42:52 CDT Corrinagodfrey Bailon [facility] CPT-30448 Level 3 Est. Patient 11:18:30 CDT Aris Charlton MD [facility] Procedures Code Procedure Name Date Entry Date Standard Description CPT-12107 Prv Med Est Pt 40-64yrs 16:49:40 CDT CPT-41217 UA w micro - LAB USE ONLY 13:09:18 JIG AND FIXTURE MAKER CPT-50871 Urine Culture - LAB USE ONLY 13:09:18 JIG AND FIXTURE MAKER CPT-62388 Wet Mount - LAB USE ONLY 11:11:39 JIG AND FIXTURE MAKER CPT-24911 Lipid - LAB USE ONLY 15:05:24 JIG AND FIXTURE MAKER CPT-15534 PT/INR - LAB USE ONLY 12:14:07 CDT CPT-64185 HGBA1C - LAB USE ONLY 12:14:07 CDT CPT-19643 CMP - LAB USE ONLY 12:14:07 CDT CPT-70007 CBC - LAB USE ONLY 12:14:07 CDT CPT-67757 Venipuncture Draw Fee 12:14:06 CDT CPT-J0702 Celestone 6 mg (Betamethasone) 15:04:45 JIG AND FIXTURE MAKER CPT-35247 Abx/Therapy Injection 15:04:45 JIG AND FIXTURE MAKER CPT-J0702 Celestone 12 mg (Betamethasone) 11:45:31 JIG AND FIXTURE MAKER CPT-32456 Visit 11:39:52 JIG AND FIXTURE MAKER CPT-08727L Sono biophysical pro wo stress test-[facility] 11:21: 42 JIG AND FIXTURE MAKER CPT-63761 Visit 16:00:50 JIG AND FIXTURE MAKER CPT-68645P Sono biophysical pro wo stress test-[facility] 13:12: 18 JIG AND FIXTURE MAKER CPT-79915 Sono biophysical pro wo stress test 11:17:21 JIG AND FIXTURE MAKER 05/21 CPT-37429 Tdap 7yrs or > 15:22:51 JIG AND FIXTURE MAKER CPT-15485 Immunization Single Admin 15:22:51 JIG AND FIXTURE MAKER CPT-66837 Tdap 7yrs or > 15:09:13 JIG AND FIXTURE MAKER CPT-85446 Visit 14:54:16 JIG AND FIXTURE MAKER CPT-85000 Fluzone Quadrivalent Intramuscular Suspension 0.5 ML 16: 58:58 CDT CPT-44876 Administration single or combination vaccine inc oral 16 :58:58 CDT CPT-28220 Fluzone Thim Free 36mo and older 14:47:39 CDT CPT-74221 Visit 14:47:39 CDT CPT-04095 Sono OB limited 10:30:07 CDT CPT-80812 Visit 10:04:44 CDT CPT-76765 Sono OB comp > 14 weeks 12:50:41 CDT CPT-20019 Visit 12:06:25 CDT CPT-27959 Visit 12:43:15 CDT CPT-86260 Visit 10:06:02 CDT CPT-34732 Spec Collection and Handling Fee 10:00:31 CDT CPT-31708 Visit 10:00:30 CDT CPT-92318 Drug Screen [place] 14:36:13 CDT
--- OUTSIDE RECORDS SUMMARY | 2018-08-28 06:02 | XMS REPORT | Clinical Summary ---
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 exam V72.31 Active Sasha Tan APRN Routine gynecological examination Bariatric operative procedure V45.86 Active Marieyl King RMA Bariatric surgery status Physical examination [...] Marrero MD Body Mass Index 29.0-29.9, adult Health examination of defined subpopulations ICD-V70.5 Inactive [...] Inactive Rian Ortega MD Dysuria ICD-788.1 Inactive iRan Ortega MD 03/29 Bronchitis ICD-490 Inactive Rian Ortega MD 2016 Myalgias ICD-729.1 Inactive Tariq Marrero MD Medication List Medication Instructions Start Date Stop Date Generic Name NDC Status Provider Patient Instruction BACTRIM DS 800-160 MG ORAL TABLET 1 twice a day SULFAMETHOXAZOLE-TRIMETHOPRIM 89741100420 Active Angelica Jarrett LPN Active ZITHROMAX Z-DANILO 250 MG ORAL TABLET 2 today, then 1 daily for 4 days AZITHROMYCIN 58724072309 No Longer Active Mahsa Alvarez Active AZITHROMYCIN 250 MG ORAL TABLET 2 po qd x 1 day, then 1 po qd x 4 days 07/27 AZITHROMYCIN 32660184334 No Longer Active Carline Best APRN Active GUAIFENESIN ER 600 MG ORAL TABLET EXTENDED RELEASE 12 HOUR 1 twice a day as needed for congestion GUAIFENESIN 60918634402 No Longer Active Sasha Tan APRN Active CYCLOBENZAPRINE HCL 10 MG ORAL TABLET 1 three times a day as needed for muscle spasm CYCLOBENZAPRINE HCL 26526180221 No Longer Active Sasha Tan APRN Active SYMBICORT 160-4.5 MCG/ACT INHALATION AEROSOL 2 puff BID for 10 days BUDESONIDE-FORMOTEROL FUMARATE 01502836229 No Longer Active Rian Ortega MD Active AZITHROMYCIN 250 MG ORAL TABLET 2 po qd x 1 day, then 1 po qd x 4 days 02/15 AZITHROMYCIN 46299698928 No Longer Active Carline Best APRN Active CIPRO 500 MG ORAL TABLET 1 tablet by mouth twice daily CIPROFLOXACIN HCL 54028801917 No Longer Active Tariq Marrero MD Active AZO TABS TABLET 2 tabs qd PHENAZOPYRIDINE HCL TABS 03554760125 No Longer Active Tariq Marrero MD Active CIPROFLOXACIN HCL 250 MG ORAL TABLET 1 twice a day for bladder infection 2016 CIPROFLOXACIN HCL 55060786953 No Longer Active Tariq Marrero MD Active SM VITAMIN B12 TR 1000 MCG ORAL TABLET EXTENDED RELEASE 1 tab po daily 04/24 CYANOCOBALAMIN 56005647141 No Longer Active Nereyda Rodriguez APRN Active CARAFATE 1 GM ORAL TABLET 1 tab po as needed up to 4 times per day SUCRALFATE 43916867288 No Longer Active Nereyda Rodriguez APRN Active PNV PLUS MULTIVITAMIN 27-1 MG ORAL TABLET 1 daily 04/24 VIT-FE FUMARATE-FA 39865855693 No Longer Active Sasha Tan APRN Active CHANTIX STARTING MONTH DANILO 0.5 MG X 11 & 1 MG X 42 ORAL TABLET take as directed VARENICLINE TARTRATE 49797873561 No Longer Active Sasha Tan APRN Active CHANTIX 1 MG ORAL TABLET 1 twice a day to help quit smoking 04/24 VARENICLINE TARTRATE 74778470247 No Longer Active Sasha Tan APRN Active OMEPRAZOLE 20 MG ORAL CAPSULE DELAYED RELEASE 1 tablet by mouth daily OMEPRAZOLE 87736903779 Active Sasha Tan APRN Active FLINSTONES GUMMIES OMEGA-3 DHA ORAL TABLET CHEWABLE 2 gummies per day PEDIATRIC MULTIPLE VIT-C-FA 53326959761 Active Sasha Tan APRN Active CLINDAMYCIN HCL 150 MG ORAL CAPSULE 1 four times a day for 1 week CLINDAMYCIN HCL 40158719260 No Longer Active Karen Jaramillo MD Active TRIAMCINOLONE ACETONIDE 0.1 % EXTERNAL CREAM Apply to affected areas TID for up to 1 week TRIAMCINOLONE ACETONIDE 46773102674 No Longer Active Rian Ortega MD Active ZITHROMAX 1 GM ORAL PACKET Take 1 time and recheck lab in 2-3 weeks AZITHROMYCIN 11102284631 No Longer Active Rian Ortega MD Active FLAGYL 500 MG ORAL TABLET four tabs PO x 1 METRONIDAZOLE 67316572373 No Longer Active Aris Charlton MD Active FLAGYL 500 MG ORAL TABLET four tabs PO x 1 FLAGYL 500 MG ORAL TABLET 640939 METRONIDAZOLE Inactive ZITHROMAX 1 GM ORAL PACKET Take 1 time and recheck lab in 2-3 weeks ZITHROMAX 1 GM ORAL PACKET 960117 AZITHROMYCIN Inactive TRIAMCINOLONE ACETONIDE 0.1 % EXTERNAL CREAM Apply to affected areas TID for up to 1 week TRIAMCINOLONE ACETONIDE 0.1 % EXTERNAL CREAM 9165794 TRIAMCINOLONE ACETONIDE Inactive CLINDAMYCIN HCL 150 MG ORAL CAPSULE 1 four times a day for 1 week CLINDAMYCIN HCL 150 MG ORAL CAPSULE 081676 CLINDAMYCIN HCL Inactive CHANTIX 1 MG ORAL TABLET 1 twice a day to help quit smoking 04/24 CHANTIX 1 MG ORAL TABLET VARENICLINE TARTRATE Inactive CHANTIX STARTING MONTH DANILO 0.5 MG X 11 & 1 MG X 42 ORAL TABLET take as directed CHANTIX STARTING MONTH DANLIO 0.5 MG X 11 & 1 MG X 42 ORAL TABLET VARENICLINE TARTRATE Inactive PNV PLUS MULTIVITAMIN 27-1 MG ORAL TABLET 1 daily 04/24 PNV PLUS MULTIVITAMIN 27-1 MG ORAL TABLET VIT-FE FUMARATE-FA Inactive CARAFATE 1 GM ORAL TABLET 1 tab po as needed up to 4 times per day CARAFATE 1 GM ORAL TABLET 222919 SUCRALFATE Inactive SM VITAMIN B12 TR 1000 MCG ORAL TABLET EXTENDED RELEASE 1 tab po daily 04/24 SM VITAMIN B12 TR 1000 MCG ORAL TABLET EXTENDED RELEASE CYANOCOBALAMIN Inactive CIPROFLOXACIN HCL 250 MG ORAL TABLET 1 twice a day for bladder infection 2016 CIPROFLOXACIN HCL 250 MG ORAL TABLET 252067 CIPROFLOXACIN HCL Inactive AZO TABS TABLET 2 tabs qd AZO TABS TABLET PHENAZOPYRIDINE HCL TABS Inactive SYMBICORT 160-4.5 MCG/ACT INHALATION AEROSOL 2 puff BID for 10 days SYMBICORT 160-4.5 MCG/ACT INHALATION AEROSOL BUDESONIDE- FORMOTEROL FUMARATE Inactive CYCLOBENZAPRINE HCL 10 MG ORAL TABLET 1 three times a day as needed for muscle spasm CYCLOBENZAPRINE HCL 10 MG ORAL TABLET 318689 CYCLOBENZAPRINE HCL Inactive GUAIFENESIN ER 600 MG ORAL TABLET EXTENDED RELEASE 12 HOUR 1 twice a day as needed for congestion GUAIFENESIN ER 600 MG ORAL TABLET EXTENDED RELEASE 12 HOUR GUAIFENESIN Inactive CIPRO 500 MG ORAL TABLET 1 tablet by mouth twice daily CIPRO 500 MG ORAL TABLET 083429 CIPROFLOXACIN HCL Inactive AZITHROMYCIN 250 MG ORAL TABLET 2 po qd x 1 day, then 1 po qd x 4 days 02/15 AZITHROMYCIN 250 MG ORAL TABLET 471979 AZITHROMYCIN Inactive AZITHROMYCIN 250 MG ORAL TABLET 2 po qd x 1 day, then 1 po qd x 4 days 07/27 AZITHROMYCIN 250 MG ORAL TABLET 481934 AZITHROMYCIN Inactive ZITHROMAX Z-DANILO 250 MG ORAL TABLET 2 today, then 1 daily for 4 days ZITHROMAX Z-DANILO 250 MG ORAL TABLET 774785 AZITHROMYCIN Inactive Immunizations Vaccine Administration Date Value Standard Description hepatitis B vaccine series yes hepatitis B vaccine, unspecified formulation Vital Signs Date Name Value Unit Range Description height E&M 62 [in_us] Bdy height blood [...] temperature weight E&M 155.5 [lb_av] Weight Measured blood pressure, diastolic 64 mm[Hg] BP calvo blood pressure, systolic 106 mm[Hg] BP sys height E&M 62 [in_us] Bdy height pulse rate E&M 74 /min Heart rate temperature E&M 99.5 [degF] Body temperature weight E&M 154 [lb_av] Weight Measured Diagnostic Results Date Name Value Unit Range Description Lab Report: CBC W/DIFF - Hematology leukocyte count, blood sent to [facility] 10^3/mm^3 10*3/mm3 4.6-10.2 Lab Report: CBC, Lipid Panel, Thyroid Stimulating Hormone (L), Free Thyr ... - Chemistry cholesterol, serum 142 mg/dL 037-711 4800/10/24 triglyceride, serum, fasting 77 mg/dL 30-200 HDL cholesterol, serum 62 mg/dL 32-60 LDL cholesterol, serum 65 mg/dL 0-130 TSH 1.48 m[iU]/mL 0.36-3.74 thyroxine, serum, free 0.94 ng/dL 0.59-1.17 hemoglobin A1C, blood, as % of total hemoglobin 5.0 % 4.3-6.0 Lab Report: CBC, Lipid Panel, Thyroid Stimulating Hormone (L), Free Thyr ... - Hematology leukocyte count, blood 6.9 10^3/MM^3 10*3/mm3 4.6-10.2 erythrocyte (RBC) count 4.51 10^6/MM^3 10*6/mm3 3.80-5.80 hemoglobin, blood 13.3 g/dL 12.0-16.0 hematocrit, blood 40.6 % 37.0-47.0 mean corpuscular volume, RBC 90 fL 80-97 mean corpuscular hemoglobin, RBC 29.5 pg 27.0-31.2 mean corpuscular hemoglobin concentration, RBC 32.7 G/DL % 31.8- 35.4 red blood cell distribution width 14.3 % 11.6-14.8 platelet count 291 10^3/MM^3 10*3/mm3 142-424 Lab Report: Comp. Metabolic Panel - Chemistry sodium, serum 137 mmol/L 510-914 9389/10/24 carbon dioxide, venous blood 24.4 mmol/L 21.0-32.0 [...] 1+ Encounters Code Encounter Date Provider Facility CPT-48217 Level 3 Est. Patient 14:41:20 CDT Tariq Marrero MD [facility] CPT-91648 Level 3 Est. Patient 11:06:09 CALL CENTER SUPPORT CONSULTANT Carline Best [facility] CPT-67867 Level 3 Est. Patient 15:59:13 CALL CENTER SUPPORT CONSULTANT Carline Best [facility] CPT-00953 Employment/ICC Exam 15:03:09 CALL CENTER SUPPORT CONSULTANT Sasha Tan [facility] CPT-90009 Level 3 Est. Patient 11:54:40 CDT Rian Ortega MD [facility] CPT-93397 Level 3 Est. Patient 11:17:51 CDT Carline Best [facility] CPT-98252 Level 3 Est. Patient 15:43:38 CDT Tariq Marrero MD [facility] CPT-71302 Level 3 Est. Patient 11:16:27 CALL CENTER SUPPORT CONSULTANT Nereyda Rodriguez [facility] CPT-10217 Level 4 Est. Patient 08:56:42 CALL CENTER SUPPORT CONSULTANT Sasha Tan [facility] CPT-54532 Level 3 Est. Patient 16:40:58 CDT Rian Ortega MD [facility] CPT-76104 Level 3 Est. Patient 13:55:16 CALL CENTER SUPPORT CONSULTANT Rian Ortega MD [facility] CPT-27373 Level 3 Est. Patient 10:42:52 CDT Corrina Bailon [facility] CPT-12618 Level 3 Est. Patient 11:18:30 CDT Aris Charlton MD [facility] Procedures Code Procedure Name Date Entry Date Standard Description CPT-29808 UA w micro - LAB USE ONLY 13:09:18 CALL CENTER SUPPORT CONSULTANT CPT-88964 Urine Culture - LAB USE ONLY 13:09:18 CALL CENTER SUPPORT CONSULTANT CPT-21053 Wet Mount - LAB USE ONLY 11:11:39 CALL CENTER SUPPORT CONSULTANT CPT-82847 Lipid - LAB USE ONLY 15:05:24 CALL CENTER SUPPORT CONSULTANT CPT-50576 PT/INR - LAB USE ONLY 12:14:07 CDT CPT-96508 HGBA1C - LAB USE ONLY 12:14:07 CDT CPT-12996 CMP - LAB USE ONLY 12:14:07 CDT CPT-22210 CBC - LAB USE ONLY 12:14:07 CDT CPT-92350 Venipuncture Draw Fee 12:14:06 CDT CPT-J0702 Celestone 6 mg (Betamethasone) 15:04:45 CALL CENTER SUPPORT CONSULTANT CPT-94544 Abx/Therapy Injection 15:04:45 CALL CENTER SUPPORT CONSULTANT CPT-J0702 Celestone 12 mg (Betamethasone) 11:45:31 CALL CENTER SUPPORT CONSULTANT CPT-32855 Visit 11:39:52 CALL CENTER SUPPORT CONSULTANT CPT-40261D Sono biophysical pro wo stress test-[place] Only 11:21: 42 CALL CENTER SUPPORT CONSULTANT CPT-39430 Visit 16:00:50 CALL CENTER SUPPORT CONSULTANT CPT-33755R Sono biophysical pro wo stress test-[place] Only 13:12: 18 CALL CENTER SUPPORT CONSULTANT CPT-41466 Sono biophysical pro wo stress test 11:17:21 CALL CENTER SUPPORT CONSULTANT 05/21 CPT-28403 Tdap 7yrs or > 15:22:51 CALL CENTER SUPPORT CONSULTANT CPT-56591 Immunization Single Admin 15:22:51 CALL CENTER SUPPORT CONSULTANT CPT-92175 Tdap 7yrs or > 15:09:13 CALL CENTER SUPPORT CONSULTANT CPT-80404 Visit 14:54:16 CALL CENTER SUPPORT CONSULTANT CPT-30848 Fluzone Quadrivalent Intramuscular Suspension 0.5 ML 16: 58:58 CDT CPT-52155 Administration single or combination vaccine inc oral 16 :58:58 CDT CPT-61775 Fluzone Thim Free 36mo and older 14:47:39 CDT CPT-10573 Visit 14:47:39 CDT CPT-71459 Sono OB limited 10:30:07 CDT CPT-29376 Visit 10:04:44 CDT CPT-32197 Sono OB comp > 14 weeks 12:50:41 CDT CPT-53325 Visit 12:06:25 CDT CPT-06691 Visit 12:43:15 CDT CPT-64725 Visit 10:06:02 CDT CPT-52227 Spec Collection and Handling Fee 10:00:31 CDT CPT-24427 Visit 10:00:30 CDT CPT-37315 Drug Screen Grisel 14:36:13 CDT
--- OUTSIDE RECORDS SUMMARY | 2018-08-28 06:02 | XMS REPORT | Clinical Summary ---
Author Author Admin, [facility] Organization [facility] Address Unknown Phone Unavailable Allergies, Adverse Reactions, Alerts Allergy Name Reaction Description Start Date Severity Status Provider No Known Allergies Kerrie Agustin LPN Conditions or Problems Problem Name Problem Code [...] not applicable Vaginal bleeding, second trimester 641.93 Active Karen Jaramillo MD Unspecified antepartum hemorrhage, antepartum condition or [...] unspecified screening of mother Polyhydramnios, antepartum 657.03 Active Karen Jaramillo MD Polyhydramnios, antepartum condition or complication 29 weeks gestation of V28.9 Inactive Deepika Alvarez LRT Encounter for unspecified screening of mother Cellulitis 682.9 Resolved Rian Ortega MD Cellulitis and abscess of unspecified sites Abscess, skin 682.9 Resolved Rian Ortega MD Cellulitis and abscess of unspecified sites 30 weeks gestation of V28.9 Inactive Deepika Kunzty LRT Encounter for unspecified screening of mother 31 weeks gestation of V28.9 Inactive Deepika Alvarez LRT Encounter for unspecified screening of mother Morbid obesity 278.01 Active Rian Ortega MD Morbid obesity Obstructive sleep apnea 327.23 Active Rian Ortega MD Obstructive sleep apnea (adult) (pediatric) Cigarette smoker 305.1 Active Rian Ortega MD Tobacco use disorder Post Manager well woman exam V72.31 Active Sasha Espitia APRN Routine gynecological examination Bariatric operative procedure V45.86 Active Mariely Faux RMA Bariatric surgery status Physical examination V70.0 Active Sasha Espitia APRN Routine general medical examination at a health care facility Dysuria 788.1 Active Nereyda Rodriguez APRN Dysuria Urinary tract infection 599.0 Active Nereyda Rodriguez APRN Urinary tract infection, site not specified Health examination of defined subpopulations ICD-V70.5 Inactive Kraen Jaramillo MD Supervision high risk , third trimester ICD-V23.9 10/31 Inactive Rian Ortega MD Advanced maternal age ICD-659.60 Inactive Rian Ortega MD Trichomonal vaginitis ICD-131.01 [...] 20 weeks gestation of ICD-V28.9 Inactive Deepika RITCHIE Low lying placenta ICD-762.2 Inactive Rian Ortega MD 28 weeks gestation of ICD-V28.9 Inactive Rian Ortega MD 29 weeks gestation of ICD-V28.9 Inactive Deepika RITCHIE Cellulitis ICD-682.9 Inactive Rian Ortega MD Abscess, skin ICD-682.9 Inactive Rian Ortega MD 30 weeks gestation of ICD-V28.9 Inactive Deepika MCQUEENT 31 weeks gestation of ICD-V28.9 Inactive Deepika RITCHIE Medication List Medication Instructions Start Date Stop Date Generic Name NDC Status Provider Patient Instruction CIPROFLOXACIN HCL 250 MG ORAL TABS 1 twice a day for bladder infection 07/24 CIPROFLOXACIN HCL 37371009465 Active Nereyda Rodriguez APRN Active AZO TABS TABS 2 tabs qd PHENAZOPYRIDINE HCL TABS 16211048297 Active Nereyda Rodrigeuz APRN Active SM VITAMIN B12 TR 1000 MCG ORAL CR-TABS 1 tab po daily CYANOCOBALAMIN 47962629614 No Longer Active Nereyda Rodriguez APRN Active CARAFATE 1 GM TAB 1 tab po as needed up to 4 times per day SUCRALFATE 26590396822 No Longer Active Nereyda Rodriguez APRN Active PNV PLUS MULTIVITAMIN 27-1 MG ORAL TABS 1 daily VIT-FE FUMARATE-FA 68493352836 No Longer Active Sasha Espitia APRN Active CHANTIX STARTING MONTH DANILO 0.5 MG X 11 & 1 MG X 42 TABS take as directed 2015 VARENICLINE TARTRATE 26473036263 No Longer Active Sasha Espitia APRN Active CHANTIX 1 MG TABS 1 twice a day to help quit smoking VARENICLINE TARTRATE 13842088346 No Longer Active Sasha Espitia APRN Active OMEPRAZOLE 20 MG CPDR 1 tablet by mouth daily OMEPRAZOLE 05237023048 Active Sasha Espitia APRN Active FLINSTONES GUMMIES OMEGA-3 DHA ORAL CHEW 2 gummies per day PEDIATRIC MULTIPLE VIT-C-FA 49978689753 Active Sasha Espitia APRN Active CLINDAMYCIN HCL 150 MG CAPS 1 four times a day for 1 week CLINDAMYCIN HCL 01660398840 No Longer Active Karen Jaramillo MD Active TRIAMCINOLONE ACETONIDE 0.1 % CREA Apply to affected areas TID for up to 1 week TRIAMCINOLONE ACETONIDE 63259695641 No Longer Active Rian Ortega MD Active ZITHROMAX 1 GM ORAL PACK Take 1 time and recheck lab in 2-3 weeks AZITHROMYCIN 20096438797 No Longer Active Rian Ortega MD Active FLAGYL 500 MG TAB four tabs PO x 1 METRONIDAZOLE 05834903874 No Longer Active Aris Charlton MD Active FLAGYL 500 MG TAB four tabs PO x 1 FLAGYL 500 MG TAB 194324 METRONIDAZOLE Inactive ZITHROMAX 1 GM ORAL PACK Take 1 time and recheck lab in 2-3 weeks ZITHROMAX 1 GM ORAL PACK 538518 AZITHROMYCIN Inactive TRIAMCINOLONE ACETONIDE 0.1 % CREA Apply to affected areas TID for up to 1 week TRIAMCINOLONE ACETONIDE 0.1 % CREA 0767893 TRIAMCINOLONE ACETONIDE Inactive CLINDAMYCIN HCL 150 MG CAPS 1 four times a day for 1 week CLINDAMYCIN HCL 150 MG CAPS 005292 CLINDAMYCIN HCL Inactive CHANTIX 1 MG TABS 1 twice a day to help quit smoking CHANTIX 1 MG TABS VARENICLINE TARTRATE Inactive CHANTIX STARTING MONTH DANILO 0.5 MG X 11 & 1 MG X 42 TABS take as directed 2015 CHANTIX STARTING MONTH DANILO 0.5 MG X 11 & 1 MG X 42 TABS VARENICLINE TARTRATE Inactive PNV PLUS MULTIVITAMIN 27-1 MG ORAL TABS 1 daily PNV PLUS MULTIVITAMIN 27-1 MG ORAL TABS VIT-FE FUMARATE-FA Inactive CARAFATE 1 GM TAB 1 tab po as needed up to 4 times per day 06/27 CARAFATE 1 GM TAB 406313 SUCRALFATE Inactive SM VITAMIN B12 TR 1000 MCG ORAL CR-TABS 1 tab po daily 470 SM VITAMIN B12 TR 1000 MCG ORAL CR-TABS CYANOCOBALAMIN Inactive Immunizations Vaccine Administration Date Value Standard Description hepatitis B vaccine series yes hepatitis B vaccine, unspecified formulation Vital Signs Date Name Value Unit Range Description blood pressure, diastolic - 8462-4 67 mm[Hg] BP calvo blood pressure, systolic - 8480-6 132 mm[Hg] BP sys pulse rate E&M - 8867-4 50 /min Heart rate temperature E&M 98 [degF] Body temperature weight E&M - 3141-9 207.5 [lb_av] Weight Measured blood pressure, diastolic - 8462-4 52 mm[Hg] BP calvo blood pressure, systolic - 8480-6 130 mm[Hg] BP sys pulse rate E&M - 8867-4 60 /min Heart rate temperature E&M 98.5 [degF] Body temperature weight E&M - 3141-9 271.5 [lb_av] Weight Measured blood pressure, diastolic - 8462-4 82 mm[Hg] BP calvo blood pressure, systolic - 8480-6 137 mm[Hg] BP sys pulse rate E&M - 8867-4 72 /min Heart rate temperature E&M 98.8 [degF] Body temperature weight E&M - 3141-9 267.5 [lb_av] Weight Measured Diagnostic Results Date Name Value Unit Range Description Lab Report: CBC, Comp. Metabolic Panel, HGBA1C - Chemistry sodium, serum 142 mmol/L [phone] carbon dioxide, venous blood 32.8 mmol/L 21.0-32.0 potassium, serum 3.8 mmol/L 3.5-5.2 chloride, serum 104 mmol/L 98-107 blood glucose 77 mg/dL 65-110 urea nitrogen, blood 10 mg/dL 7-18 creatinine, serum 0.76 mg/dL 0.55-1.30 alanine aminotransferase (SGPT), serum 38 U/L 12-78 aspartate aminotransferase (SGOT), serum 17 U/L 15-37 calcium, serum 8.5 mg/dL 8.5-10.1 bilirubin, serum, total 0.60 mg/dL 0.00-1.00 hemoglobin A1C, blood, as % of total hemoglobin 5.1 % 4.3-6.0 Lab Report: CBC, Comp. Metabolic Panel, HGBA1C - Hematology leukocyte count, blood 6.0 10^3/MM^3 10*3/mm3 4.6-10.2 erythrocyte (RBC) count 4.30 10^6/MM^3 10*6/mm3 4.04-5.48 hemoglobin, blood 12.3 g/dL 12.0-16.0 hematocrit, blood 37.6 % 36.0-46.0 mean corpuscular volume, RBC 88 fL 80-97 mean corpuscular hemoglobin, RBC 28.6 pg 27.0-31.2 mean corpuscular hemoglobin concentration, RBC 32.7 G/DL % 31.8- 35.4 red blood cell distribution width 15.7 % 11.6-14.8 platelet count 243 10^3/MM^3 10*3/mm3 142-424 Lab Report: Lipid Panel - Chemistry cholesterol, serum 165 mg/dL [phone] triglyceride, serum, fasting 124 mg/dL 30-200 HDL cholesterol, serum 47 mg/dL 32-96 LDL cholesterol, serum 93 mg/dL 0-130 Lab Report: Prothrombin Time - Coagulation prothrombin time (patient) 12.0 SECS s 11.1-13.4 international normalized ratio (INR) 1.0 1.0-3.5 Lab Report: UADIP W/MICRO, AUTO - Chemistry RBC, urine, dipstick Negative Negative protein, total urine random Trace mg/dL Negative Lab Report: UADIP W/MICRO, AUTO - Urinalysis glucose, urine, semiquantitative Negative Negative ketones, urine, by test strip Trace Negative bilirubin, urine Negative Negative urine color Yellow Colorless;Lightyellow;Straw;Yellow appearance, urine Clear Clear specific gravity, urine >=1.030 1.000-1.030 pH, urine, semiquantitative 5.5 5.0-8.5 urobilinogen, urine, semiquantitative (dipstick) 0.2 Normal leukocyte esterase, urine, by dipstick Trace Negative nitrite, urine, semiquantitative Negative Negative Lab Report: VITAMIN B12/FOLATE, SERUM PANE, FERRITIN, VITAMIN D, 25-HYDR ... - Chemistry vitamin D 25-hydroxy, serum 32 ng/mL 30-100 Encounters Code Encounter Date Provider Facility CPT-41596 Level 3 Est. Patient 11:16:27 BACK CLOSER Nereyda Rodriguez [facility] CPT-97766 Level 4 Est. Patient 08:56:42 BACK CLOSER Sasha Espitia [facility] CPT-52076 Level 3 Est. Patient 16:40:58 CDT Rian Ortega MD [facility] CPT-46818 Level 3 Est. Patient 13:55:16 BACK CLOSER Rian Ortega MD [facility] CPT-38648 Level 3 Est. Patient 10:42:52 CDT Corrina Angelesvalentine [facility] CPT-45875 Level 3 Est. Patient 11:18:30 CDT Aris Charlton MD [facility] Procedures Code Procedure Name Date Entry Date Standard Description CPT-82052 UA w micro - LAB USE ONLY 13:09:18 BACK CLOSER CPT-66606 Urine Culture - LAB USE ONLY 13:09:18 BACK CLOSER CPT-67633 Wet Mount - LAB USE ONLY 11:11:39 BACK CLOSER CPT-22836 Lipid - LAB USE ONLY 15:05:24 BACK CLOSER CPT-49947 PT/INR - LAB USE ONLY 12:14:07 CDT CPT-56756 HGBA1C - LAB USE ONLY 12:14:07 CDT CPT-36112 CMP - LAB USE ONLY 12:14:07 CDT CPT-13752 CBC - LAB USE ONLY 12:14:07 CDT CPT-10231 Venipuncture Draw Fee 12:14:06 CDT CPT-J0702 Celestone 6 mg (Betamethasone) 15:04:45 BACK CLOSER CPT-73686 Abx/Therapy Injection 15:04:45 BACK CLOSER CPT-J0702 Celestone 12 mg (Betamethasone) 11:45:31 BACK CLOSER CPT-94418 Visit 11:39:52 BACK CLOSER CPT-11208R Sono biophysical pro wo stress test-[facility] 11:21: 42 BACK CLOSER CPT-40747 Visit 16:00:50 BACK CLOSER CPT-02720G Sono biophysical pro wo stress test-[facility] 13:12: 18 BACK CLOSER CPT-21897 Sono biophysical pro wo stress test 11:17:21 BACK CLOSER 05/21 CPT-81283 Tdap 7yrs or > 15:22:51 BACK CLOSER CPT-18013 Immunization Single Admin 15:22:51 BACK CLOSER CPT-88567 Tdap 7yrs or > 15:09:13 BACK CLOSER CPT-79677 Visit 14:54:16 BACK CLOSER CPT-85512 Fluzone Quadrivalent Intramuscular Suspension 0.5 ML 16: 58:58 CDT CPT-72914 Administration single or combination vaccine inc oral 16 :58:58 CDT CPT-59433 Fluzone Thim Free 36mo and older 14:47:39 CDT CPT-85214 Visit 14:47:39 CDT CPT-45307 Sono OB limited 10:30:07 CDT CPT-30142 Visit 10:04:44 CDT CPT-47407 Sono OB comp > 14 weeks 12:50:41 CDT CPT-82091 Visit 12:06:25 CDT CPT-86198 Visit 12:43:15 CDT CPT-09934 Visit 10:06:02 CDT CPT-61372 Spec Collection and Handling Fee 10:00:31 CDT CPT-29231 Visit 10:00:30 CDT CPT-70030 Drug Screen Grisel 14:36:13 CDT
--- OUTSIDE RECORDS SUMMARY | 2018-08-28 06:03 | XMS REPORT | Clinical Summary ---
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 Sasha Tan [...] ORAL TABLET 1 twice a day SULFAMETHOXAZOLE-TRIMETHOPRIM 37311717021 Active Angelica Jarrett LPN Active ZITHROMAX Z-DANILO 250 MG ORAL TABLET 2 today, then 1 daily for 4 days AZITHROMYCIN 54646028628 No Longer Active Mahsa Alvarez Active AZITHROMYCIN 250 MG ORAL TABLET 2 po qd x 1 day, then 1 po qd x 4 days 07/27 AZITHROMYCIN 64941242094 No Longer Active Carline Best APRN Active GUAIFENESIN ER 600 MG ORAL TABLET EXTENDED RELEASE 12 HOUR 1 twice a day as needed for congestion GUAIFENESIN 52113355850 No Longer Active Sasha Tan APRN Active CYCLOBENZAPRINE HCL 10 MG ORAL TABLET 1 three times a day as needed for muscle spasm CYCLOBENZAPRINE HCL 77960280037 No Longer Active Sasha Tan APRN Active SYMBICORT 160-4.5 MCG/ACT INHALATION AEROSOL 2 puff BID for 10 days BUDESONIDE-FORMOTEROL FUMARATE 00206372032 No Longer Active Rian Ortega MD Active AZITHROMYCIN 250 MG ORAL TABLET 2 po qd x 1 day, then 1 po qd x 4 days 02/15 AZITHROMYCIN 47372132294 No Longer Active Carline Best APRN Active CIPRO 500 MG ORAL TABLET 1 tablet by mouth twice daily CIPROFLOXACIN HCL 24185950165 No Longer Active Tariq Marrero MD Active AZO TABS TABLET 2 tabs qd PHENAZOPYRIDINE HCL TABS 85657327681 No Longer Active Tariq Marrero MD Active CIPROFLOXACIN HCL 250 MG ORAL TABLET 1 twice a day for bladder infection 2016 CIPROFLOXACIN HCL 56503536173 No Longer Active Tariq Marrero MD Active SM VITAMIN B12 TR 1000 MCG ORAL TABLET EXTENDED RELEASE 1 tab po daily 04/24 CYANOCOBALAMIN 86852595083 No Longer Active Nereyda Rodriguez APRN Active CARAFATE 1 GM ORAL TABLET 1 tab po as needed up to 4 times per day SUCRALFATE 88962125872 No Longer Active Nereyda Rodriguez APRN Active PNV PLUS MULTIVITAMIN 27-1 MG ORAL TABLET 1 daily 04/24 VIT-FE FUMARATE-FA 01221534824 No Longer Active Sasha Tan APRN Active CHANTIX STARTING MONTH DANILO 0.5 MG X 11 & 1 MG X 42 ORAL TABLET take as directed VARENICLINE TARTRATE 07043640338 No Longer Active Sasha Tan APRN Active CHANTIX 1 MG ORAL TABLET 1 twice a day to help quit smoking 04/24 VARENICLINE TARTRATE 58181533388 No Longer Active Sasha Tan APRN Active OMEPRAZOLE 20 MG ORAL CAPSULE DELAYED RELEASE 1 tablet by mouth daily OMEPRAZOLE 61363137871 Active Sasha Tan APRN Active FLINSTONES GUMMIES OMEGA-3 DHA ORAL TABLET CHEWABLE 2 gummies per day PEDIATRIC MULTIPLE VIT-C-FA 70070354658 Active Sasha Tan APRN Active CLINDAMYCIN HCL 150 MG ORAL CAPSULE 1 four times a day for 1 week CLINDAMYCIN HCL 09706877225 No Longer Active Karen Jaramillo MD Active TRIAMCINOLONE ACETONIDE 0.1 % EXTERNAL CREAM Apply to affected areas TID for up to 1 week TRIAMCINOLONE ACETONIDE 90621141729 No Longer Active Rian Ortega MD Active ZITHROMAX 1 GM ORAL PACKET Take 1 time and recheck lab in 2-3 weeks AZITHROMYCIN 78306597390 No Longer Active Rian Ortega MD Active FLAGYL 500 MG ORAL TABLET four tabs PO x 1 METRONIDAZOLE 91383731068 No Longer Active Aris Charlton MD Active FLAGYL 500 MG ORAL TABLET four tabs PO x 1 FLAGYL 500 MG ORAL TABLET 643597 METRONIDAZOLE Inactive ZITHROMAX 1 GM ORAL PACKET Take 1 time and recheck lab in 2-3 weeks ZITHROMAX 1 GM ORAL PACKET 135651 AZITHROMYCIN Inactive TRIAMCINOLONE ACETONIDE 0.1 % EXTERNAL CREAM Apply to affected areas TID for up to 1 week TRIAMCINOLONE ACETONIDE 0.1 % EXTERNAL CREAM 6011281 TRIAMCINOLONE ACETONIDE Inactive CLINDAMYCIN HCL 150 MG ORAL CAPSULE 1 four times a day for 1 week CLINDAMYCIN HCL 150 MG ORAL CAPSULE 540490 CLINDAMYCIN HCL Inactive CHANTIX 1 MG ORAL [...] per day CARAFATE 1 GM ORAL TABLET 829188 SUCRALFATE Inactive SM VITAMIN B12 TR 1000 MCG ORAL TABLET EXTENDED RELEASE 1 tab po daily 04/24 SM VITAMIN B12 TR 1000 MCG ORAL TABLET EXTENDED RELEASE CYANOCOBALAMIN Inactive CIPROFLOXACIN HCL 250 MG ORAL TABLET 1 twice a day for bladder infection 2016 CIPROFLOXACIN HCL 250 MG ORAL TABLET 548565 CIPROFLOXACIN HCL Inactive AZO TABS TABLET 2 tabs qd AZO TABS TABLET PHENAZOPYRIDINE HCL TABS Inactive SYMBICORT 160-4.5 MCG/ACT INHALATION AEROSOL 2 puff BID for 10 days SYMBICORT 160-4.5 MCG/ACT INHALATION AEROSOL BUDESONIDE- FORMOTEROL FUMARATE Inactive CYCLOBENZAPRINE HCL 10 MG ORAL TABLET 1 three times a day as needed for muscle spasm CYCLOBENZAPRINE HCL 10 MG ORAL TABLET 359478 CYCLOBENZAPRINE HCL Inactive GUAIFENESIN ER 600 MG ORAL TABLET EXTENDED RELEASE 12 HOUR 1 twice a day as needed for congestion GUAIFENESIN ER 600 MG ORAL TABLET EXTENDED RELEASE 12 HOUR GUAIFENESIN Inactive CIPRO 500 MG ORAL TABLET 1 tablet by mouth twice daily CIPRO 500 MG ORAL TABLET 244057 CIPROFLOXACIN HCL Inactive AZITHROMYCIN 250 MG ORAL TABLET 2 po qd x 1 day, then 1 po qd x 4 days 02/15 AZITHROMYCIN 250 MG ORAL TABLET 977691 AZITHROMYCIN Inactive AZITHROMYCIN 250 MG ORAL TABLET 2 po qd x 1 day, then 1 po qd x 4 days 07/27 AZITHROMYCIN 250 MG ORAL TABLET 160088 AZITHROMYCIN Inactive ZITHROMAX Z-DANILO 250 MG ORAL TABLET 2 today, then 1 daily for 4 days ZITHROMAX Z-DANILO 250 MG ORAL TABLET 928751 AZITHROMYCIN Inactive Immunizations Vaccine Administration Date Value [...] leukocyte count, blood sent to [facility] 10^3/mm^3 10*3/mm3 4.6-10.2 Lab Report: CBC, Lipid Panel, Thyroid Stimulating Hormone (L), Free Thyr ... - Chemistry cholesterol, serum 142 mg/dL 503-287 9501/10/24 triglyceride, serum, fasting 77 mg/dL 30-200 HDL [...] % 11.6-14.8 platelet count 291 10^3/MM^3 10*3/mm3 099-360 4695/10/24 mean corpuscular volume, RBC 90 fL 80-97 hematocrit, blood 40.6 % 37.0-47.0 hemoglobin, blood 13.3 g/dL 12.0-16.0 erythrocyte (RBC) count 4.51 10^6/MM^3 10*6/mm3 3.80-5.80 leukocyte count, blood 6.9 10^3/MM^3 10*3/mm3 4.6-10.2 Lab Report: Comp. Metabolic Panel - Chemistry sodium, serum 137 mmol/L 551-682 5759/10/24 carbon dioxide, venous blood 24.4 mmol/L 21.0-32.0 [...] 1+ Encounters Code Encounter Date Provider Facility CPT-71584 Level 3 Est. Patient 14:41:20 CDT Tariq Marrero MD [facility] CPT-20915 Level 3 Est. Patient 11:06:09 [employer] Carline Best [facility] CPT-07478 Level 3 Est. Patient 15:59:13 [employer] Carline Best [facility] CPT-12645 Employment/ICC Exam 15:03:09 [employer] Sasha Tan [facility] CPT-67168 Level 3 Est. Patient 11:54:40 CDT Rian Ortega MD [facility] CPT-58005 Level 3 Est. Patient 11:17:51 CDT Carline Best [facility] CPT-92378 Level 3 Est. Patient 15:43:38 CDT Tariq Marrero MD [facility] CPT-80689 Level 3 Est. Patient 11:16:27 [employer] Nereyda Rodriguez [facility] CPT-83293 Level 4 Est. Patient 08:56:42 [employer] Sasha Tan [facility] CPT-13663 Level 3 Est. Patient 16:40:58 CDT Rian Ortega MD [facility] CPT-72960 Level 3 Est. Patient 13:55:16 [employer] Rian Ortega MD [facility] CPT-38784 Level 3 Est. Patient 10:42:52 CDT Corrina Bailon [facility] CPT-41552 Level 3 Est. Patient 11:18:30 CDT Aris Charlton MD [facility] Procedures Code Procedure Name Date Entry Date Standard Description CPT-51164 UA w micro - LAB USE ONLY 13:09:18 [employer] CPT-40756 Urine Culture - LAB USE ONLY 13:09:18 [employer] CPT-17535 Wet Mount - LAB USE ONLY 11:11:39 [employer] CPT-88656 Lipid - LAB USE ONLY 15:05:24 [employer] CPT-31787 PT/INR - LAB USE ONLY 12:14:07 CDT CPT-58669 HGBA1C - LAB USE ONLY 12:14:07 CDT CPT-88875 CMP - LAB USE ONLY 12:14:07 CDT CPT-28830 CBC - LAB USE ONLY 12:14:07 CDT CPT-53256 Venipuncture Draw Fee 12:14:06 CDT CPT-J0702 Celestone 6 mg (Betamethasone) 15:04:45 [employer] CPT-52987 Abx/Therapy Injection 15:04:45 [employer] CPT-J0702 Celestone 12 mg (Betamethasone) 11:45:31 [employer] CPT-50525 Visit 11:39:52 [employer] CPT-70278F [employer] pro wo stress test-[place] Only 11:21: 42 [employer] CPT-39566 Visit 16:00:50 [employer] CPT-80780M [employer] pro wo stress test-[place] Only 13:12: 18 [employer] CPT-52184 [employer] pro wo stress test 11:17:21 [employer] 05/21 CPT-56339 Tdap 7yrs or > 15:22:51 [employer] CPT-69520 Immunization Single Admin 15:22:51 [employer] CPT-47582 Tdap 7yrs or > 15:09:13 [employer] CPT-59736 Visit 14:54:16 [employer] CPT-88406 Fluzone Quadrivalent Intramuscular Suspension 0.5 ML 16: 58:58 CDT CPT-83139 Administration single or combination vaccine inc oral 16 :58:58 CDT CPT-99200 Fluzone Thim Free 36mo and older 14:47:39 CDT CPT-25616 Visit 14:47:39 CDT CPT-94862 Sono OB limited 10:30:07 CDT CPT-82224 Visit 10:04:44 CDT CPT-57404 Sono OB comp > 14 weeks 12:50:41 CDT CPT-31528 Visit 12:06:25 CDT CPT-83431 Visit 12:43:15 CDT CPT-04760 Visit 10:06:02 CDT CPT-81590 Spec Collection and Handling Fee 10:00:31 CDT CPT-67561 Visit 10:00:30 CDT CPT-97279 Drug Screen [place] 14:36:13 CDT
--- OUTSIDE RECORDS SUMMARY | 2018-08-28 06:03 | XMS REPORT | Clinical Summary ---
Author Author Admin, E Organization [facility] Address Unknown Phone Unavailable Allergies, Adverse Reactions, Alerts Allergy Name Reaction Description Start Date Severity Status Provider No Known Allergies Sasha Jeffers Conditions or Problems Problem Name Problem Code Onset Date Status Entry Date Provider Comment Standard Description Annotate Health examination of defined subpopulations V70.5 Active 10/15 Patricia Kat Health examination of defined subpopulations Supervision of other normal V22.1 Active Karen Jaramillo MD Supervision of other normal Advanced maternal age 659.60 Active Karen Jaramillo MD Elderly multigravida, with current , unspecified as to episode of care or not applicable Previous delivery, antepartum condition or complication 654.23 11/20 Active Karen Jaramillo MD Previous section, antepartum condition or complication Obesity 278.00 Active Karen Jaramillo MD Obesity, unspecified Vaginal bleeding, first trimester 641.90 Active Karen Jaramillo MD Unspecified antepartum hemorrhage, unspecified as to episode of care or not applicable Trichomonal vaginitis 131.01 Active Karen Jaramillo MD Trichomonal vulvovaginitis Insect bite 919.4 Active Aris Charlton MD Insect bite, nonvenomous, of other, multiple, and unspecified sites, without mention of infection Medication List Medication Instructions Start Date Stop Date Generic Name NDC Status Provider Patient Instruction ZITHROMAX 1 GM ORAL PACK Take 1 time and recheck lab in 2-3 weeks AZITHROMYCIN 95679009423 Active Carolina Mayfield LPN Active TRIAMCINOLONE ACETONIDE 0.1 % CREA Apply to affected areas TID for up to 1 week TRIAMCINOLONE ACETONIDE 07586886817 Active Aris Charlton MD Active PNV PLUS MULTIVITAMIN 27-1 MG ORAL TABS 1 daily VIT-FE FUMARATE-FA 18648588765 Active Aris Charlton MD Active FLAGYL 500 MG TAB four tabs PO x 1 METRONIDAZOLE 55527647055 No Longer Active Aris Charlton MD Active FLAGYL 500 MG TAB four tabs PO x 1 FLAGYL 500 MG TAB 181309 METRONIDAZOLE Inactive Immunizations Vaccine Administration Date Value Standard Description hepatitis B vaccine series yes hepatitis B vaccine, unspecified formulation Vital Signs Date Name Value Unit Range Description blood pressure, diastolic - 8462-4 69 mm[Hg] BP calvo blood pressure, systolic - 8480-6 109 mm[Hg] BP sys pulse rate E&M - 8867-4 60 /min Heart rate temperature E&M 98.6 [degF] Body temperature weight E&M - 3141-9 259 [lb_av] Weight Measured blood pressure, diastolic - 8462-4 74 mm[Hg] BP calvo blood pressure, systolic - 8480-6 124 mm[Hg] BP sys pulse rate E&M - 8867-4 60 /min Heart rate temperature E&M 98.2 [degF] Body temperature weight E&M - 3141-9 260.4 [lb_av] Weight Measured blood pressure, diastolic - 8462-4 74 mm[Hg] BP calvo blood pressure, systolic - 8480-6 119 mm[Hg] BP sys pulse rate E&M - 8867-4 52 /min Heart rate temperature E&M 98.5 [degF] Body temperature weight E&M - 3141-9 259 [lb_av] Weight Measured blood pressure, diastolic - 8462-4 82 mm[Hg] BP calvo blood pressure, systolic - 8480-6 127 mm[Hg] BP sys pulse rate E&M - 8867-4 80 /min Heart rate temperature E&M 98.5 [degF] Body temperature weight E&M - 3141-9 265 [lb_av] Weight Measured Diagnostic Results Date Name Value Unit Range Description Lab Report: ABO GROUP & RH TYPE, ANTIBODY SCREEN, RBCW/REFL I, CBC (IN ... - Blood bank antibody screen, serum NO ANTIBODIES DETECTED Rh antigen RH(D) POSITIVE Lab Report: ABO GROUP & RH TYPE, ANTIBODY SCREEN, RBCW/REFL I, CBC (IN ... - Chemistry hepatitis B surface antigen NON-REACTIVE NON-REACTIVE Lab Report: ABO GROUP & RH TYPE, ANTIBODY SCREEN, RBCW/REFL I, CBC (IN ... - Hematology hemoglobin, blood 12.6 g/dL 11.7-15.5 hematocrit, blood 38.8 % 35.0-45.0 mean corpuscular volume, RBC 87.6 fL 80.0-100.0 mean corpuscular hemoglobin, RBC 28.5 pg 27.0-33.0 mean corpuscular hemoglobin concentration, RBC 32.5 G/DL % 32.0- 36.0 red blood cell distribution width 14.5 % 11.0-15.0 platelet count 307 THOUSAND/UL 10*3/mm3 614-267 2502/05/26 mean platelet volume 8.9 fL 7.5-11.5 Blood type A erythrocyte (RBC) count 4.43 MILLION/UL 10*6/mm3 3.80-5.10 leukocyte count, blood 10.2 THOUSAND/UL 10*3/mm3 3.8-10.8 Lab Report: ABO GROUP & RH TYPE, ANTIBODY SCREEN, RBCW/REFL I, CBC (IN ... - Lab chlamydia DNA probe NOT DETECTED NOT DETECTED Lab Report: ABO GROUP & RH TYPE, ANTIBODY SCREEN, RBCW/REFL I, CBC (IN ... - Microbiology Neisseria gonorrhoeae DNA probe NOT DETECTED NOT DETECTED Lab Report: ABO GROUP & RH TYPE, ANTIBODY SCREEN, RBCW/REFL I, CBC (IN ... - Serology rapid plasma reagin antibody titer NON-REACTIVE NON-REACTIVE rubella antibody, serum, IgG 2.66 Lab Report: Chlamydia/GC APTIMA/[id number] - Lab chlamydia DNA probe DETECTED NOT DETECTED Lab Report: Chlamydia/GC APTIMA/[id number] - Microbiology Neisseria gonorrhoeae DNA probe NOT DETECTED NOT DETECTED Lab Report: HGBA1C - Chemistry hemoglobin A1C, blood, as % of total hemoglobin 5.3 % 4.3-6.0 Lab Report: Thyroid Stimulating Hormone (L), Quant BHCG - Chemistry TSH 2.31 m[iU]/mL 0.36-3.74 Lab Report: UADIP W/MICRO, AUTO - Chemistry protein, total urine random Trace mg/dL Negative RBC, urine, dipstick Negative Negative Lab Report: UADIP W/MICRO, AUTO - Urinalysis urobilinogen, urine, semiquantitative (dipstick) 0.2 Normal leukocyte esterase, urine, by dipstick Negative Negative nitrite, urine, semiquantitative Negative Negative urate crystals, amorphous, urine, semiquantitative Moderate None seen glucose, urine, semiquantitative Negative Negative ketones, urine, by test strip Negative Negative bilirubin, urine Negative Negative urine color Yellow Colorless;Lightyellow;Straw;Yellow appearance, urine Hazy Clear specific gravity, urine 1.020 1.000-1.030 pH, urine, semiquantitative 7.0 5.0-8.5 Lab Report: [facility] [place] - Chemistry human chorionic gonadotropin, urine, qualitative (urine test) Positive Negative Office Visit: Initial OB Visit - Chemistry protein, total urine random UC mg/dL Office Visit: Initial OB Visit - Genetics/fertility test, date 10/24/2014 Office Visit: Initial OB Visit - Microbiology Herpes Simplex Virus Genital no Office Visit: Initial OB Visit - Urinalysis glucose, urine, semiquantitative UC nitrite, urine, semiquantitative UC Office Visit: OB Visit - Chemistry protein, total urine random Tr mg/dL Office Visit: OB Visit - Urinalysis glucose, urine, semiquantitative N nitrite, urine, semiquantitative N Encounters Code Encounter Date Provider Facility CPT-06098 Level 3 Est. Patient 10:42:52 CDT Corrina Bailon APRN [facility] CPT-98432 Level 3 Est. Patient 11:18:30 CDT Aris Charlton MD [facility] Procedures Code Procedure Name Date Entry Date Standard Description CPT-49953 Visit 10:06:02 CDT CPT-02337 Spec Collection and Handling Fee 10:00:31 CDT CPT-97505 Visit 10:00:30 CDT CPT-34364 Drug Screen [place] 14:36:13 CDT
--- OUTSIDE RECORDS SUMMARY | 2018-08-28 06:03 | XMS REPORT | Clinical Summary ---
Author Author Admin, [facility] Organization [facility] Address Unknown Phone Unavailable Allergies, Adverse Reactions, Alerts Allergy Name Reaction Description Start Date Severity Status Provider Allergies Unknown Conditions or Problems Problem Name Problem Code Onset Date Status Entry Date Provider Comment Standard Description Annotate Health examination of defined subpopulations V70.5 Active 10/15 Patricia Kat Health examination of defined subpopulations Medication List Medication Instructions Start Date Stop Date Generic Name NDC Status Provider Patient Instruction Drug Treatment Unknown - unknown Procedures Code Procedure Name Date Entry Date Standard Description CPT-09549 Drug Screen [place] 14:36:13 CDT
--- OUTSIDE RECORDS SUMMARY | 2018-08-28 06:04 | XMS REPORT | Clinical Summary ---
Author Author Admin, [facility] Organization [facility] Address Unknown Phone Unavailable Allergies, Adverse Reactions, Alerts Allergy Name Reaction Description Start Date Severity Status Provider No Known Allergies CANDICE Wynne Conditions or Problems Problem Name Problem Code [...] 30 weeks gestation of V28.9 Inactive Deepika Alvarez LRT Encounter for unspecified screening of mother 31 weeks gestation of V28.9 Inactive Deepika Alvarez LRT Encounter for unspecified screening of mother Morbid obesity 278.01 Active Rian Ortega MD Morbid obesity Obstructive sleep apnea 327.23 Active Rian Oretga MD Obstructive sleep apnea (adult) (pediatric) Cigarette smoker 305.1 Active Rian Ortega MD Tobacco use disorder Steel Box Toe Inserter well woman exam V72.31 Active Sasha Espitia 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 Routine gynecological examination Bariatric operative procedure V45.86 Active Mariely Faux RMA Bariatric surgery status Health examination of defined subpopulations ICD-V70.5 Inactive [...] Generic Name NDC Status Provider Patient Instruction PNV PLUS MULTIVITAMIN 27-1 MG ORAL TABS 1 daily VIT-FE FUMARATE-FA 68132534729 No Longer Active Sasha Espitia APRN Active CHANTIX STARTING MONTH DANILO 0.5 MG X 11 & 1 MG X 42 TABS take as directed 2015 VARENICLINE TARTRATE 99620556578 No Longer Active Sasha Espitia APRN Active CHANTIX 1 MG TABS 1 twice a day to help quit smoking VARENICLINE TARTRATE 01545755089 No Longer Active Sasha Espitia APRN Active OMEPRAZOLE 20 MG CPDR 1 tablet by mouth daily OMEPRAZOLE 74424726392 Active Sasha Omkar PÉREZ Active CARAFATE 1 GM TAB 1 tab po as needed up to 4 times per day SUCRALFATE 80714014018 Active Sasha Espitia BETO Active FLINSTONES GUMMIES OMEGA-3 DHA ORAL CHEW 2 gummies per day PEDIATRIC MULTIPLE VIT-C-FA 44293599808 Active Sasha Espitia BETO Active SM VITAMIN B12 TR 1000 MCG ORAL CR-TABS 1 tab po daily CYANOCOBALAMIN 52209399305 Active Sasha Espitia BETO Active CLINDAMYCIN HCL 150 MG CAPS 1 four times a day for 1 week CLINDAMYCIN HCL 81264534318 No Longer Active Karen Jaramillo MD Active TRIAMCINOLONE ACETONIDE 0.1 % CREA Apply to affected areas TID for up to 1 week TRIAMCINOLONE ACETONIDE 01896632007 No Longer Active Rian Ortega MD Active ZITHROMAX 1 GM ORAL PACK Take 1 time and recheck lab in 2-3 weeks AZITHROMYCIN 49235443999 No Longer Active Rian Ortega MD Active FLAGYL 500 MG TAB four tabs PO x 1 METRONIDAZOLE 07472757752 No Longer Active Aris Charlton MD Active FLAGYL 500 MG TAB four tabs PO x 1 FLAGYL 500 MG TAB 582930 METRONIDAZOLE Inactive ZITHROMAX 1 GM ORAL PACK Take 1 time and recheck lab in 2-3 weeks ZITHROMAX 1 GM ORAL PACK 981732 AZITHROMYCIN Inactive TRIAMCINOLONE ACETONIDE 0.1 % CREA Apply to affected areas TID for up to 1 week TRIAMCINOLONE ACETONIDE 0.1 % CREA 2554965 TRIAMCINOLONE ACETONIDE Inactive CLINDAMYCIN HCL 150 MG CAPS 1 four times a day for 1 week CLINDAMYCIN HCL 150 MG CAPS 577652 CLINDAMYCIN HCL Inactive CHANTIX 1 MG TABS [...] 27-1 MG ORAL TABS VIT-FE FUMARATE-FA Inactive Immunizations Vaccine Administration Date Value Standard Description hepatitis B vaccine series yes hepatitis B vaccine, unspecified formulation Vital Signs Date Name Value Unit Range Description blood pressure, diastolic - 8462-4 52 mm[Hg] [...] E&M - 3141-9 267.5 [lb_av] Weight Measured blood pressure, diastolic - 8462-4 55 mm[Hg] BP calvo blood pressure, systolic - 8480-6 128 mm[Hg] BP sys pulse rate E&M - 8867-4 76 /min Heart rate temperature E&M 98.7 [degF] Body temperature weight E&M - 3141-9 267 [lb_av] Weight Measured blood pressure, diastolic - 8462-4 72 mm[Hg] BP calvo blood pressure, systolic - 8480-6 128 mm[Hg] BP sys pulse rate E&M - 8867-4 76 /min Heart rate temperature E&M 97.8 [degF] Body temperature weight E&M - 3141-9 263.2 [lb_av] Weight Measured blood pressure, diastolic - 8462-4 83 mm[Hg] BP calvo blood pressure, systolic - 8480-6 120 mm[Hg] BP sys pulse rate E&M - 8867-4 65 /min Heart rate temperature E&M 98.5 [degF] Body temperature weight E&M - 3141-9 259 [lb_av] Weight Measured blood pressure, diastolic - 8462-4 59 mm[Hg] BP calvo blood pressure, systolic - 8480-6 127 mm[Hg] BP sys pulse rate E&M - 8867-4 73 /min Heart rate temperature E&M 97.2 [degF] Body temperature weight E&M - 3141-9 261 [lb_av] Weight Measured blood pressure, diastolic - 8462-4 59 mm[Hg] BP calvo blood pressure, systolic - 8480-6 132 mm[Hg] BP sys pulse rate E&M - 8867-4 79 /min Heart rate temperature E&M 96 [degF] Body temperature weight E&M - 3141-9 264.5 [lb_av] Weight Measured blood pressure, diastolic - 8462-4 56 mm[Hg] BP calvo blood pressure, systolic - 8480-6 128 mm[Hg] BP sys pulse rate E&M - 8867-4 100 /min Heart rate temperature E&M 98.6 [degF] Body temperature weight E&M - 3141-9 260.5 [lb_av] Weight Measured blood pressure, diastolic - 8462-4 53 mm[Hg] BP calvo blood pressure, systolic - 8480-6 119 mm[Hg] BP sys pulse rate E&M - 8867-4 81 /min Heart rate temperature E&M 98.5 [degF] Body temperature weight E&M - 3141-9 261 [lb_av] Weight Measured Diagnostic Results Date Name Value Unit Range Description Lab Report: ANTIBODY SCREEN, RBCW/REFL I - Blood bank antibody screen, serum NO ANTIBODIES DETECTED Lab Report: CBC, Comp. Metabolic Panel, HGBA1C - Chemistry sodium, serum 142 mmol/L [phone] carbon dioxide, venous blood 32.8 mmol/L 21.0-32.0 [...] count 243 10^3/MM^3 10*3/mm3 142-424 Lab Report: CBC, Thyroid Stimulating Hormone (L), Free Thyroxine (L) - Chemistry TSH 1.66 m[iU]/mL 0.36-3.74 thyroxine, serum, free 0.80 ng/dL 0.76-1.46 Lab Report: CBC, Thyroid Stimulating Hormone (L), Free Thyroxine (L) - Hematology leukocyte count, blood 11.7 10^3/MM^3 10*3/mm3 4.6-10.2 erythrocyte (RBC) count 3.60 10^6/MM^3 10*6/mm3 4.04-5.48 hemoglobin, blood 11.2 g/dL 12.0-16.0 hematocrit, blood 32.9 % 36.0-46.0 mean corpuscular volume, RBC 92 fL 80-97 mean corpuscular hemoglobin, RBC 31.0 pg 27.0-31.2 mean corpuscular hemoglobin concentration, RBC 33.9 G/DL % 31.8- 35.4 red blood cell distribution width 13.7 % 11.6-14.8 platelet count 302 10^3/MM^3 10*3/mm3 142-424 Lab Report: Lipid Panel - Chemistry cholesterol, serum 165 mg/dL [phone] triglyceride, serum, fasting 124 mg/dL 30-200 HDL cholesterol, serum 47 mg/dL 32-96 LDL cholesterol, serum 93 mg/dL 0-130 Lab Report: Prothrombin Time - Coagulation prothrombin time (patient) 12.0 SECS s 11.1-13.4 international normalized ratio (INR) 1.0 1.0-3.5 Office Visit: follow up ob - Urinalysis protein, urine, semiquantitative (dipstick) Tr glucose, urine, semiquantitative N nitrite, urine, semiquantitative N Encounters Code Encounter Date Provider Facility CPT-52226 Level 3 Est. Patient 16:40:58 CDT Rian Ortega MD [facility] CPT-51494 Level 3 Est. Patient 13:55:16 RUBBER GOODS REPAIRER Rian Ortega MD [facility] CPT-66012 Level 3 Est. Patient 10:42:52 CDT Corrinagodfrey Bailon APRN [facility] CPT-26854 Level 3 Est. Patient 11:18:30 CDT Aris Charlton MD [facility] Procedures Code Procedure Name Date Entry Date Standard Description CPT-81379 PT/INR - LAB USE ONLY 12:14:07 CDT CPT-09673 HGBA1C - LAB USE ONLY 12:14:07 CDT CPT-05569 CMP - LAB USE ONLY 12:14:07 CDT CPT-20058 CBC - LAB USE ONLY 12:14:07 CDT CPT-42570 Venipuncture Draw Fee 12:14:06 CDT CPT-J0702 Celestone 6 mg (Betamethasone) 15:04:45 RUBBER GOODS REPAIRER CPT-05163 Abx/Therapy Injection 15:04:45 RUBBER GOODS REPAIRER CPT-J0702 Celestone 12 mg (Betamethasone) 11:45:31 RUBBER GOODS REPAIRER CPT-58408 Visit 11:39:52 RUBBER GOODS REPAIRER CPT-49898Q Sono biophysical pro wo stress test-[place] Only 11:21: 42 RUBBER GOODS REPAIRER CPT-33427 Visit 16:00:50 RUBBER GOODS REPAIRER CPT-03590K Sono biophysical pro wo stress test-[place] Only 13:12: 18 RUBBER GOODS REPAIRER CPT-63877 Sono biophysical pro wo stress test 11:17:21 RUBBER GOODS REPAIRER 05/21 CPT-01519 Tdap 7yrs or > 15:22:51 RUBBER GOODS REPAIRER CPT-28183 Immunization Single Admin 15:22:51 RUBBER GOODS REPAIRER CPT-18385 Tdap 7yrs or > 15:09:13 RUBBER GOODS REPAIRER CPT-78538 Visit 14:54:16 RUBBER GOODS REPAIRER CPT-02820 Fluzone Quadrivalent Intramuscular Suspension 0.5 ML 16: 58:58 CDT CPT-41537 Administration single or combination vaccine inc oral 16 :58:58 CDT CPT-85772 Fluzone Thim Free 36mo and older 14:47:39 CDT CPT-62204 Visit 14:47:39 CDT CPT-76645 Sono OB limited 10:30:07 CDT CPT-45246 Visit 10:04:44 CDT CPT-94122 Sono OB comp > 14 weeks 12:50:41 CDT CPT-98409 Visit 12:06:25 CDT CPT-08584 Visit 12:43:15 CDT CPT-94361 Visit 10:06:02 CDT CPT-90108 Spec Collection and Handling Fee 10:00:31 CDT CPT-37787 Visit 10:00:30 CDT CPT-29948 Drug Screen [place] 14:36:13 CDT
--- OUTSIDE RECORDS SUMMARY | 2018-08-28 06:04 | XMS REPORT | Clinical Summary ---
Author Author Admin, E Organization [facility] Address Unknown Phone Unavailable Allergies, Adverse Reactions, Alerts Allergy Name Reaction Description Start Date Severity Status Provider No Known Allergies Tania Phillip LRT Conditions or Problems Problem Name Problem Code [...] Active Rian Ortega MD Tobacco use disorder Polisher Numeral well woman exam V72.31 Active Sasha Espitia [...] 724.5 Active Rian Ortega MD Backache, unspecified Supervision high risk , third trimester [...] trimester ICD-649.13 10/31 Inactive Rian Ortega MD Weight loss ICD-783.21 Inactive Karen Jaramillo MD Low lying placenta ICD-762.2 Inactive Rian Ortega MD 28 weeks gestation of ICD-V28.9 Inactive Rian Ortega MD Polyhydramnios, antepartum ICD-657.03 Inactive Rian Ortega MD 18 weeks gestation of ICD-V28.9 Inactive Karen Jaramillo MD Cellulitis ICD-682.9 Inactive Rian Ortega MD Abscess, skin ICD-682.9 Inactive Rian Ortega MD 20 weeks gestation of ICD-V28.9 Inactive Deepika Alvarez LRDonnell 31 weeks gestation of ICD-V28.9 Inactive Deepika Alvarez LRT Morbid obesity ICD-278.01 Inactive Rian Ortega MD Dysuria ICD-788.1 Inactive Rian Ortega MD 03/29 29 weeks gestation of ICD-V28.9 Inactive Deepika MCQUEENT 30 weeks gestation of ICD-V28.9 Inactive Deepika Alvarez LRT Bronchitis ICD-490 Inactive Rian Ortega MD 2016 Medication List Medication Instructions Start Date Stop Date Generic Name NDC Status Provider Patient Instruction CYCLOBENZAPRINE HCL 10 MG TABS 1 three times a day as needed for muscle spasm CYCLOBENZAPRINE HCL 41495480068 Active Rian Ortega MD Active SYMBICORT 160-4.5 MCG/ACT AERO 2 puff BID for 10 days BUDESONIDE-FORMOTEROL FUMARATE 59761994219 No Longer Active Rina Ortega MD Active GUAIFENESIN 600 MG [id number] 1 twice a day as needed for congestion GUAIFENESIN 09592967627 Active Jillina Frazelanel MENTAL HEALTH PRACTITIONER Active AZITHROMYCIN 250 MG TABS 2 po qd x 1 day, then 1 po qd x 4 days AZITHROMYCIN 04604759260 No Longer Active Jillina Estephania CHAMPIONN Active CIPRO 500 MG TAB 1 tablet by mouth twice daily CIPROFLOXACIN HCL 55830305385 No Longer Active Tariq Marrero MD Active AZO TABS TABS 2 tabs qd PHENAZOPYRIDINE HCL TABS 87757656342 No Longer Active Tariq Marrero MD Active CIPROFLOXACIN HCL 250 MG ORAL TABS 1 twice a day for bladder infection 07/24 CIPROFLOXACIN HCL 60436427243 No Longer Active Tariq Marrero MD Active SM VITAMIN B12 TR 1000 MCG ORAL CR-TABS 1 tab po daily CYANOCOBALAMIN 78775370866 No Longer Active Nereyda Rodriguez APRN Active CARAFATE 1 GM TAB 1 tab po as needed up to 4 times per day SUCRALFATE 95622206810 No Longer Active Nereyda Rodriguez APRN Active PNV PLUS MULTIVITAMIN 27-1 MG ORAL TABS 1 daily VIT-FE FUMARATE-FA 38218431117 No Longer Active Sasha Espitia APRN Active CHANTIX STARTING MONTH DANILO 0.5 MG X 11 & 1 MG X 42 TABS take as directed 2015 VARENICLINE TARTRATE 26751380382 No Longer Active Sasha Espitia APRN Active CHANTIX 1 MG TABS 1 twice a day to help quit smoking VARENICLINE TARTRATE 67424936523 No Longer Active Sasha Espitai APRN Active OMEPRAZOLE 20 MG CPDR 1 tablet by mouth daily OMEPRAZOLE 59104142564 Active Sasha Espitia APRN Active FLINSTONES GUMMIES OMEGA-3 DHA ORAL CHEW 2 gummies per day PEDIATRIC MULTIPLE VIT-C-FA 00876936365 Active Sasha Espitia APRN Active CLINDAMYCIN HCL 150 MG CAPS 1 four times a day for 1 week CLINDAMYCIN HCL 52866200203 No Longer Active Karen Jaramillo MD Active TRIAMCINOLONE ACETONIDE 0.1 % CREA Apply to affected areas TID for up to 1 week TRIAMCINOLONE ACETONIDE 98836407858 No Longer Active Rian Ortega MD Active ZITHROMAX 1 GM ORAL PACK Take 1 time and recheck lab in 2-3 weeks AZITHROMYCIN 08142891209 No Longer Active Rian Ortega MD Active FLAGYL 500 MG TAB four tabs PO x 1 METRONIDAZOLE 95072622810 No Longer Active Aris Charlton MD Active FLAGYL 500 MG TAB four tabs PO x 1 FLAGYL 500 MG TAB 190463 METRONIDAZOLE Inactive ZITHROMAX 1 GM ORAL PACK Take 1 time and recheck lab in 2-3 weeks ZITHROMAX 1 GM ORAL PACK 484311 AZITHROMYCIN Inactive TRIAMCINOLONE ACETONIDE 0.1 % CREA Apply to affected areas TID for up to 1 week TRIAMCINOLONE ACETONIDE 0.1 % CREA 5318001 TRIAMCINOLONE ACETONIDE Inactive CLINDAMYCIN HCL 150 MG CAPS 1 four times a day for 1 week CLINDAMYCIN HCL 150 MG CAPS 259384 CLINDAMYCIN HCL Inactive CHANTIX 1 MG TABS [...] per day 06/27 CARAFATE 1 GM TAB 730206 SUCRALFATE Inactive SM VITAMIN B12 TR 1000 MCG ORAL CR-TABS 1 tab po daily SM VITAMIN B12 TR 1000 MCG ORAL CR-TABS CYANOCOBALAMIN Inactive CIPROFLOXACIN HCL 250 MG ORAL TABS 1 twice a day for bladder infection 07/24 CIPROFLOXACIN HCL 250 MG ORAL TABS 335098 CIPROFLOXACIN HCL Inactive AZO TABS TABS 2 tabs qd AZO TABS TABS PHENAZOPYRIDINE HCL TABS Inactive SYMBICORT 160-4.5 MCG/ACT AERO 2 puff BID for 10 days SYMBICORT 160-4.5 MCG/ACT AERO BUDESONIDE-FORMOTEROL FUMARATE Inactive CIPRO 500 MG TAB 1 tablet by mouth twice daily CIPRO 500 MG TAB 743612 CIPROFLOXACIN HCL Inactive AZITHROMYCIN 250 MG TABS 2 po qd x 1 day, then 1 po qd x 4 days AZITHROMYCIN 250 MG TABS 967643 AZITHROMYCIN Inactive Immunizations Vaccine Administration Date Value Standard Description hepatitis B vaccine series yes hepatitis B vaccine, unspecified formulation Vital Signs Date Name Value Unit Range Description blood pressure, diastolic 59 mm[Hg] BP calvo [...] temperature weight E&M 154 [lb_av] Weight Measured blood pressure, diastolic 58 mm[Hg] BP calvo blood pressure, systolic 114 mm[Hg] BP sys height E&M 62 [in_us] Bdy height pulse rate E&M 61 /min Heart rate temperature E&M 98.8 [degF] Body temperature weight E&M 161.5 [lb_av] Weight Measured temperature E&M 98.3 [degF] Body temperature weight E&M 172.5 [lb_av] Weight Measured blood pressure, diastolic 67 mm[Hg] BP calvo blood pressure, systolic 132 mm[Hg] BP sys pulse rate E&M 50 /min Heart rate temperature E&M 98 [degF] Body temperature weight E&M 207.5 [lb_av] Weight Measured Diagnostic Results Date Name Value Unit Range Description Lab Report: CBC, Comp. Metabolic Panel, HGBA1C - Chemistry sodium, serum 142 mmol/L [phone] carbon dioxide, venous blood 32.8 mmol/L 21.0-32.0 [...] CBC, Comp. Metabolic Panel, HGBA1C - Hematology hemoglobin, blood 12.3 g/dL 12.0-16.0 erythrocyte (RBC) count 4.30 10^6/MM^3 10*6/mm3 4.04-5.48 leukocyte count, blood 6.0 10^3/MM^3 10*3/mm3 4.6-10.2 hematocrit, blood 37.6 % 36.0-46.0 mean corpuscular volume, RBC 88 fL 80-97 mean corpuscular hemoglobin, RBC 28.6 pg 27.0-31.2 mean corpuscular hemoglobin concentration, RBC 32.7 G/DL % 31.8- 35.4 red blood cell distribution width 15.7 % 11.6-14.8 platelet count 243 10^3/MM^3 10*3/mm3 142-424 Lab Report: Lipid Panel - Chemistry cholesterol, serum 165 mg/dL [phone] triglyceride, serum, fasting 124 mg/dL 30-200 HDL cholesterol, serum 47 mg/dL 32-96 LDL cholesterol, serum 93 mg/dL 0-130 Lab Report: Prothrombin Time - Coagulation international normalized ratio (INR) 1.0 1.0-3.5 prothrombin time (patient) 12.0 SECS s 11.1-13.4 Lab Report: UADIP W/MICRO, AUTO - Chemistry protein, total urine random Trace mg/dL Negative RBC, urine, dipstick Negative Negative Lab Report: UADIP W/MICRO, AUTO - Urinalysis urobilinogen, urine, semiquantitative (dipstick) 0.2 Normal leukocyte esterase, urine, by dipstick Trace Negative nitrite, urine, semiquantitative Negative Negative appearance, urine Clear Clear specific gravity, urine >=1.030 1.000-1.030 pH, urine, semiquantitative 5.5 5.0-8.5 urine color Yellow Colorless;Lightyellow;Straw;Yellow glucose, urine, semiquantitative Negative Negative ketones, urine, by test strip Trace Negative bilirubin, urine Negative Negative Lab Report: VITAMIN B12/FOLATE, SERUM PANE, FERRITIN, VITAMIN D, 25-HYDR ... - Chemistry vitamin D 25-hydroxy, serum 32 ng/mL 30-100 Encounters Code Encounter Date Provider Facility CPT-99980 Level 3 Est. Patient 11:54:40 CDT Rian Ortega MD [facility] CPT-83429 Level 3 Est. Patient 11:17:51 CDT Carline Best [facility]-13459 Level 3 Est. Patient 15:43:38 CDT Tariq Marrero MD [facility] CPT-67250 Level 3 Est. Patient 11:16:27 SENIOR REVENUE ACCOUNTANT Nereyda Rodriguez [facility] CPT-05117 Level 4 Est. Patient 08:56:42 SENIOR REVENUE ACCOUNTANT Sasha Espitia [facility] CPT-10607 Level 3 Est. Patient 16:40:58 CDT Rian Ortega MD [facility] CPT-73439 Level 3 Est. Patient 13:55:16 SENIOR REVENUE ACCOUNTANT Rian Ortega MD [facility] CPT-15612 Level 3 Est. Patient 10:42:52 CDT Corrina Bailon [facility] CPT-98297 Level 3 Est. Patient 11:18:30 CDT Aris Charlton MD [facility] Procedures Code Procedure Name Date Entry Date Standard Description CPT-03336 UA w micro - LAB USE ONLY 13:09:18 SENIOR REVENUE ACCOUNTANT CPT-57666 Urine Culture - LAB USE ONLY 13:09:18 SENIOR REVENUE ACCOUNTANT CPT-88650 Wet Mount - LAB USE ONLY 11:11:39 SENIOR REVENUE ACCOUNTANT CPT-86669 Lipid - LAB USE ONLY 15:05:24 SENIOR REVENUE ACCOUNTANT CPT-41036 PT/INR - LAB USE ONLY 12:14:07 CDT CPT-08631 HGBA1C - LAB USE ONLY 12:14:07 CDT CPT-28466 CMP - LAB USE ONLY 12:14:07 CDT CPT-09320 CBC - LAB USE ONLY 12:14:07 CDT CPT-99262 Venipuncture Draw Fee 12:14:06 CDT CPT-J0702 Celestone 6 mg (Betamethasone) 15:04:45 SENIOR REVENUE ACCOUNTANT CPT-36931 Abx/Therapy Injection 15:04:45 SENIOR REVENUE ACCOUNTANT CPT-J0702 Celestone 12 mg (Betamethasone) 11:45:31 SENIOR REVENUE ACCOUNTANT CPT-92772 Visit 11:39:52 SENIOR REVENUE ACCOUNTANT CPT-03987S Sono biophysical pro wo stress test-[place] Only 11:21: 42 SENIOR REVENUE ACCOUNTANT CPT-77217 Visit 16:00:50 SENIOR REVENUE ACCOUNTANT CPT-11274K Sono biophysical pro wo stress test[facility] 13:12: 18 SENIOR REVENUE ACCOUNTANT CPT-00816 Sono biophysical pro wo stress test 11:17:21 SENIOR REVENUE ACCOUNTANT 05/21 CPT-20265 Tdap 7yrs or > 15:22:51 SENIOR REVENUE ACCOUNTANT CPT-08282 Immunization Single Admin 15:22:51 SENIOR REVENUE ACCOUNTANT CPT-86619 Tdap 7yrs or > 15:09:13 SENIOR REVENUE ACCOUNTANT CPT-34069 Visit 14:54:16 SENIOR REVENUE ACCOUNTANT CPT-54776 Fluzone Quadrivalent Intramuscular Suspension 0.5 ML 16: 58:58 CDT CPT-60667 Administration single or combination vaccine inc oral 16 :58:58 CDT CPT-16552 Fluzone Thim Free 36mo and older 14:47:39 CDT CPT-23663 Visit 14:47:39 CDT CPT-63562 Sono OB limited 10:30:07 CDT CPT-96076 Visit 10:04:44 CDT CPT-02888 Sono OB comp > 14 weeks 12:50:41 CDT CPT-78499 Visit 12:06:25 CDT CPT-01981 Visit 12:43:15 CDT CPT-27135 Visit 10:06:02 CDT CPT-72905 Spec Collection and Handling Fee 10:00:31 CDT CPT-50778 Visit 10:00:30 CDT CPT-14838 Drug Screen [place] 14:36:13 CDT
--- OUTSIDE RECORDS SUMMARY | 2018-08-28 06:05 | XMS REPORT | Clinical Summary ---
Author Author Admin, [facility] Organization [facility] Address Unknown Phone Unavailable Allergies, Adverse [...] Procedure Name Date Entry Date Standard Description CPT-10411 Drug Screen [place] 14:36:13 CDT
--- OUTSIDE RECORDS SUMMARY | 2018-08-28 06:05 | XMS REPORT | Clinical Summary ---
Author Author Admin, E Organization [facility] Address Unknown Phone Unavailable Allergies, Adverse [...] and recheck lab in 2-3 weeks AZITHROMYCIN 25017433961 Active Carolina Mayfield LPN Active TRIAMCINOLONE ACETONIDE 0.1 % CREA Apply to affected areas TID for up to 1 week TRIAMCINOLONE ACETONIDE 17704392583 Active Aris Charlton MD Active PNV PLUS MULTIVITAMIN 27-1 MG ORAL TABS 1 daily VIT-FE FUMARATE-FA 79275662451 Active Aris Charlton MD Active FLAGYL 500 MG TAB four tabs PO x 1 METRONIDAZOLE 71276274051 No Longer Active Aris Charlton MD Active FLAGYL 500 MG TAB four tabs PO x 1 FLAGYL 500 MG TAB 891026 METRONIDAZOLE Inactive Immunizations Vaccine Administration Date Value [...] I, CBC (IN ... - Blood bank Rh antigen RH(D) POSITIVE antibody screen, serum NO ANTIBODIES DETECTED Lab Report: ABO GROUP & RH TYPE, ANTIBODY SCREEN, RBCW/REFL I, CBC (IN ... - Chemistry hepatitis B surface antigen NON-REACTIVE NON-REACTIVE Lab Report: ABO GROUP & RH TYPE, ANTIBODY SCREEN, RBCW/REFL I, CBC (IN ... - Hematology leukocyte count, blood 10.2 THOUSAND/UL 10*3/mm3 3.8-10.8 erythrocyte (RBC) count 4.43 MILLION/UL 10*6/mm3 3.80-5.10 hemoglobin, blood 12.6 g/dL 11.7-15.5 hematocrit, blood 38.8 % 35.0-45.0 mean corpuscular volume, RBC 87.6 fL 80.0-100.0 mean corpuscular hemoglobin, RBC 28.5 pg 27.0-33.0 mean corpuscular hemoglobin concentration, RBC 32.5 G/DL % 32.0- 36.0 red blood cell distribution width 14.5 % 11.0-15.0 platelet count 307 THOUSAND/UL 10*3/mm3 321-406 8497/05/26 mean platelet volume 8.9 fL 7.5-11.5 Blood type A Lab Report: ABO GROUP & RH TYPE, [...] antibody, serum, IgG 2.66 Lab Report: Chlamydia/GC APTIMA/96770 - Lab chlamydia DNA probe DETECTED NOT DETECTED chlamydia DNA probe NOT DETECTED NOT DETECTED Lab Report: Chlamydia/GC APTIMA/48264 - Microbiology Neisseria gonorrhoeae DNA probe NOT DETECTED NOT DETECTED Neisseria gonorrhoeae DNA probe NOT DETECTED NOT DETECTED Lab Report: HGBA1C - Chemistry hemoglobin A1C, blood, as % of total hemoglobin 5.3 % 4.3-6.0 Lab Report: Thyroid Stimulating Hormone (L), Quant [facility] [place] - Chemistry TSH 2.31 m[iU]/mL 0.36-3.74 Lab [...] pH, urine, semiquantitative 7.0 5.0-8.5 Lab Report: [facility] [place] - Chemistry human chorionic gonadotropin, urine, qualitative [...] N Encounters Code Encounter Date Provider Facility CPT-73928 Level 3 Est. Patient 10:42:52 CDT Corrina Bailon APRN [facility] CPT-84600 Level 3 Est. Patient 11:18:30 CDT Aris Charlton MD [facility] Procedures Code Procedure Name Date Entry Date Standard Description CPT-03979 Visit 10:06:02 CDT CPT-88666 Spec Collection and Handling Fee 10:00:31 CDT CPT-70887 Visit 10:00:30 CDT CPT-03988 Drug Screen [place] 14:36:13 CDT
--- OUTSIDE RECORDS SUMMARY | 2018-08-28 06:05 | XMS REPORT | Clinical Summary ---
Author Author Admin, [facility] Organization [facility] Address Unknown Phone Unavailable Allergies, Adverse Reactions, [...] Active Rian Ortega MD Tobacco use disorder Ware Finisher well woman exam V72.31 Active Sasha Espitia [...] 724.5 Active Rian Ortega MD Backache, unspecified Health examination of defined subpopulations ICD-V70.5 [...] Generic Name NDC Status Provider Patient Instruction GUAIFENESIN ER 600 MG ORAL TABLET EXTENDED RELEASE 12 HOUR 1 twice a day as needed for congestion GUAIFENESIN [id number] No Longer Active Sasha Espitia APRN Active CYCLOBENZAPRINE HCL 10 MG ORAL TABLET 1 three times a day as needed for muscle spasm CYCLOBENZAPRINE HCL 28978865313 No Longer Active Sasha Espitia APRN Active SYMBICORT 160-4.5 MCG/ACT INHALATION AEROSOL 2 puff BID for 10 days BUDESONIDE-FORMOTEROL FUMARATE 07682678689 No Longer Active Rian Ortega MD Active AZITHROMYCIN 250 MG ORAL TABLET 2 po qd x 1 day, then 1 po qd x 4 days 02/15 AZITHROMYCIN 50128553027 No Longer Active Carline Best APRN Active CIPRO 500 MG ORAL TABLET 1 tablet by mouth twice daily CIPROFLOXACIN HCL 11647511425 No Longer Active Tariq Marrero MD Active AZO TABS TABLET 2 tabs qd PHENAZOPYRIDINE HCL TABS 35098448325 No Longer Active Tariq Marrero MD Active CIPROFLOXACIN HCL 250 MG ORAL TABLET 1 twice a day for bladder infection 2016 CIPROFLOXACIN HCL 16887318147 No Longer Active Tariq Marrero MD Active SM VITAMIN B12 TR 1000 MCG ORAL TABLET EXTENDED RELEASE 1 tab po daily 04/24 CYANOCOBALAMIN 85067073638 No Longer Active Nereyda Rodriguez APRN Active CARAFATE 1 GM ORAL TABLET 1 tab po as needed up to 4 times per day SUCRALFATE 68470086546 No Longer Active Nereyda Rodriguez APRN Active PNV PLUS MULTIVITAMIN 27-1 MG ORAL TABLET 1 daily 04/24 VIT-FE FUMARATE-FA 45045822059 No Longer Active Sasha Espitia APRN Active CHANTIX STARTING MONTH DANILO 0.5 MG X 11 & 1 MG X 42 ORAL TABLET take as directed VARENICLINE TARTRATE 71345255371 No Longer Active Sasha Espitia APRN Active CHANTIX 1 MG ORAL TABLET 1 twice a day to help quit smoking 04/24 VARENICLINE TARTRATE 08096510380 No Longer Active Sasha Espitia APRN Active OMEPRAZOLE 20 MG ORAL CAPSULE DELAYED RELEASE 1 tablet by mouth daily OMEPRAZOLE 96003362784 Active Sasha Espitia APRN Active FLINSTONES GUMMIES OMEGA-3 DHA ORAL TABLET CHEWABLE 2 gummies per day PEDIATRIC MULTIPLE VIT-C-FA 75607918894 Active Sasha Espitia APRN Active CLINDAMYCIN HCL 150 MG ORAL CAPSULE 1 four times a day for 1 week CLINDAMYCIN HCL 94785752498 No Longer Active Kaern Jarmaillo MD Active TRIAMCINOLONE ACETONIDE 0.1 % EXTERNAL CREAM Apply to affected areas TID for up to 1 week TRIAMCINOLONE ACETONIDE 08329635911 No Longer Active Rian Otrega MD Active ZITHROMAX 1 GM ORAL PACKET Take 1 time and recheck lab in 2-3 weeks AZITHROMYCIN 93155071761 No Longer Active Rian Ortega MD Active FLAGYL 500 MG ORAL TABLET four tabs PO x 1 METRONIDAZOLE 67257993062 No Longer Active Aris Charlton MD Active FLAGYL 500 MG ORAL TABLET four tabs PO x 1 FLAGYL 500 MG ORAL TABLET 388374 METRONIDAZOLE Inactive ZITHROMAX 1 GM ORAL PACKET Take 1 time and recheck lab in 2-3 weeks ZITHROMAX 1 GM ORAL PACKET 745140 AZITHROMYCIN Inactive TRIAMCINOLONE ACETONIDE 0.1 % EXTERNAL CREAM Apply to affected areas TID for up to 1 week TRIAMCINOLONE ACETONIDE 0.1 % EXTERNAL CREAM 7910834 TRIAMCINOLONE ACETONIDE Inactive CLINDAMYCIN HCL 150 MG ORAL CAPSULE 1 four times a day for 1 week CLINDAMYCIN HCL 150 MG ORAL CAPSULE 257215 CLINDAMYCIN HCL Inactive CHANTIX 1 MG ORAL [...] per day CARAFATE 1 GM ORAL TABLET 403532 SUCRALFATE Inactive SM VITAMIN B12 TR 1000 MCG ORAL TABLET EXTENDED RELEASE 1 tab po daily 04/24 SM VITAMIN B12 TR 1000 MCG ORAL TABLET EXTENDED RELEASE CYANOCOBALAMIN Inactive CIPROFLOXACIN HCL 250 MG ORAL TABLET 1 twice a day for bladder infection 2016 CIPROFLOXACIN HCL 250 MG ORAL TABLET 466020 CIPROFLOXACIN HCL Inactive AZO TABS TABLET 2 tabs qd AZO TABS TABLET PHENAZOPYRIDINE HCL TABS Inactive SYMBICORT 160-4.5 MCG/ACT INHALATION AEROSOL 2 puff BID for 10 days SYMBICORT 160-4.5 MCG/ACT INHALATION AEROSOL BUDESONIDE- FORMOTEROL FUMARATE Inactive CYCLOBENZAPRINE HCL 10 MG ORAL TABLET 1 three times a day as needed for muscle spasm CYCLOBENZAPRINE HCL 10 MG ORAL TABLET 612863 CYCLOBENZAPRINE HCL Inactive GUAIFENESIN ER 600 MG ORAL TABLET EXTENDED RELEASE 12 HOUR 1 twice a day as needed for congestion GUAIFENESIN ER 600 MG ORAL TABLET EXTENDED RELEASE 12 HOUR GUAIFENESIN Inactive CIPRO 500 MG ORAL TABLET 1 tablet by mouth twice daily CIPRO 500 MG ORAL TABLET 454142 CIPROFLOXACIN HCL Inactive AZITHROMYCIN 250 MG ORAL TABLET 2 po qd x 1 day, then 1 po qd x 4 days 02/15 AZITHROMYCIN 250 MG ORAL TABLET 457793 AZITHROMYCIN Inactive Immunizations Vaccine Administration Date Value Standard Description hepatitis B vaccine series yes hepatitis B vaccine, unspecified formulation Vital Signs Date Name Value Unit Range Description blood pressure, diastolic 74 mm[Hg] BP calvo [...] temperature weight E&M 172.5 [lb_av] Weight Measured Diagnostic Results Date Name Value Unit Range Description Lab Report: CBC, Lipid Panel, Thyroid Stimulating Hormone (L), Free Thyr ... - Chemistry cholesterol, serum 142 mg/dL 128-702 4253/10/24 triglyceride, serum, fasting 77 mg/dL 30-200 HDL [...] Panel - Chemistry sodium, serum 137 mmol/L 761-684 2470/10/24 carbon dioxide, venous blood 24.4 mmol/L 21.0-32.0 potassium, serum 4.7 mmol/L 3.5-5.2 chloride, serum 104 mmol/L 98-107 blood glucose 85 mg/dL 65-110 urea nitrogen, blood 11 mg/dL 7-18 creatinine, serum 0.82 mg/dL 0.60-1.30 alanine aminotransferase (SGPT), serum 29 U/L 12-78 aspartate aminotransferase (SGOT), serum 16 U/L 15-37 calcium, serum 8.4 mg/dL 8.5-10.1 bilirubin, serum, total 0.60 mg/dL 0.00-1.00 Lab Report: UADIP W/MICRO, AUTO - Chemistry protein, total urine random Trace mg/dL Negative RBC, urine, dipstick Negative Negative Lab Report: UADIP W/MICRO, AUTO - Urinalysis urobilinogen, urine, semiquantitative (dipstick) 0.2 Normal leukocyte esterase, urine, by dipstick Trace Negative nitrite, urine, semiquantitative Negative Negative glucose, urine, semiquantitative Negative Negative ketones, urine, by test strip Trace Negative bilirubin, urine Negative Negative urine color Yellow Colorless;Lightyellow;Straw;Yellow appearance, urine Clear Clear specific gravity, urine >=1.030 1.000-1.030 pH, urine, semiquantitative 5.5 5.0-8.5 Encounters Code Encounter Date Provider Facility CPT-25634 Employment/ICC Exam 15:03:09 TAYE Espitia [facility] CPT-68648 Level 3 Est. Patient 11:54:40 CDT Rian Ortega MD [facility] CPT-81165 Level 3 Est. Patient 11:17:51 CDT Carline Best [facility] CPT-36312 Level 3 Est. Patient 15:43:38 CDT Tariq Marrero MD [facility] CPT-33236 Level 3 Est. Patient 11:16:27 LEARNING AND DEVELOPMENT ASSISTANT Nereyda Rodriguez [facility] CPT-28830 Level 4 Est. Patient 08:56:42 LEARNING AND DEVELOPMENT ASSISTANT Sasha Espitia [facility] CPT-75014 Level 3 Est. Patient 16:40:58 CDT Rian Ortega MD [facility] CPT-61379 Level 3 Est. Patient 13:55:16 LEARNING AND DEVELOPMENT ASSISTANT Rian Ortega MD [facility] CPT-06290 Level 3 Est. Patient 10:42:52 CDT Corrina Uvaldo [facility] CPT-01055 Level 3 Est. Patient 11:18:30 CDT Aris Charlton MD [facility] Procedures Code Procedure Name Date Entry Date Standard Description CPT-68978 UA w micro - LAB USE ONLY 13:09:18 LEARNING AND DEVELOPMENT ASSISTANT CPT-53518 Urine Culture - LAB USE ONLY 13:09:18 LEARNING AND DEVELOPMENT ASSISTANT CPT-17341 Wet Mount - LAB USE ONLY 11:11:39 LEARNING AND DEVELOPMENT ASSISTANT CPT-18025 Lipid - LAB USE ONLY 15:05:24 LEARNING AND DEVELOPMENT ASSISTANT CPT-56233 PT/INR - LAB USE ONLY 12:14:07 CDT CPT-96275 HGBA1C - LAB USE ONLY 12:14:07 CDT CPT-86017 CMP - LAB USE ONLY 12:14:07 CDT CPT-34760 CBC - LAB USE ONLY 12:14:07 CDT CPT-62920 Venipuncture Draw Fee 12:14:06 CDT CPT-J0702 Celestone 6 mg (Betamethasone) 15:04:45 LEARNING AND DEVELOPMENT ASSISTANT CPT-55514 Abx/Therapy Injection 15:04:45 LEARNING AND DEVELOPMENT ASSISTANT CPT-J0702 Celestone 12 mg (Betamethasone) 11:45:31 LEARNING AND DEVELOPMENT ASSISTANT CPT-54463 Visit 11:39:52 LEARNING AND DEVELOPMENT ASSISTANT CPT-97084M Sono biophysical pro wo stress test-[facility] 11:21: 42 LEARNING AND DEVELOPMENT ASSISTANT CPT-75777 Visit 16:00:50 LEARNING AND DEVELOPMENT ASSISTANT CPT-38505X Sono biophysical pro wo stress test-[facility] 13:12: 18 LEARNING AND DEVELOPMENT ASSISTANT CPT-78425 Sono biophysical pro wo stress test 11:17:21 LEARNING AND DEVELOPMENT ASSISTANT 05/21 CPT-15983 Tdap 7yrs or > 15:22:51 LEARNING AND DEVELOPMENT ASSISTANT CPT-84002 Immunization Single Admin 15:22:51 LEARNING AND DEVELOPMENT ASSISTANT CPT-11403 Tdap 7yrs or > 15:09:13 LEARNING AND DEVELOPMENT ASSISTANT CPT-10876 Visit 14:54:16 LEARNING AND DEVELOPMENT ASSISTANT CPT-77515 Fluzone Quadrivalent Intramuscular Suspension 0.5 ML 16: 58:58 CDT CPT-25870 Administration single or combination vaccine inc oral 16 :58:58 CDT CPT-08347 Fluzone Thim Free 36mo and older 14:47:39 CDT CPT-93209 Visit 14:47:39 CDT CPT-64561 Sono OB limited 10:30:07 CDT CPT-33245 Visit 10:04:44 CDT CPT-98367 Sono OB comp > 14 weeks 12:50:41 CDT CPT-76341 Visit 12:06:25 CDT CPT-70910 Visit 12:43:15 CDT CPT-44116 Visit 10:06:02 CDT CPT-45207 Spec Collection and Handling Fee 10:00:31 CDT CPT-88178 Visit 10:00:30 CDT CPT-85533 Drug Screen Grisel 14:36:13 CDT
--- OUTSIDE RECORDS SUMMARY | 2018-08-28 06:05 | XMS REPORT | Clinical Summary ---
Author Author Admin, E Organization [facility] Address Unknown Phone Unavailable Allergies, Adverse Reactions, Alerts Allergy Name Reaction Description Start Date Severity Status Provider No Known Allergies [facility] Conditions or Problems Problem Name Problem Code [...] Generic Name NDC Status Provider Patient Instruction TRIAMCINOLONE ACETONIDE 0.1 % CREA Apply to affected areas TID for up to 1 week TRIAMCINOLONE ACETONIDE 96266679645 Active Aris Charlton MD Active PNV PLUS MULTIVITAMIN 27-1 MG ORAL TABS 1 daily VIT-FE FUMARATE-FA 28371803250 Active Aris Charlton MD Active FLAGYL 500 MG TAB four tabs PO x 1 METRONIDAZOLE 94768591545 No Longer Active Aris Charlton MD Active FLAGYL 500 MG TAB four tabs PO x 1 FLAGYL 500 MG TAB 001151 METRONIDAZOLE Inactive Immunizations Vaccine Administration Date Value Standard Description hepatitis B vaccine series yes hepatitis B vaccine, unspecified formulation Vital Signs Date Name Value Unit Range Description blood pressure, diastolic - 8462-4 74 mm[Hg] [...] % 11.0-15.0 platelet count 307 THOUSAND/UL 10*3/mm3 012-152 7730/05/26 mean platelet volume 8.9 fL 7.5-11.5 Blood [...] rubella antibody, serum, IgG 2.66 Lab Report: HGBA1C - Chemistry hemoglobin A1C, blood, as % of total hemoglobin 5.3 % 4.3-6.0 Lab Report: Thyroid Stimulating Hormone (L), Quant [facility] - Chemistry TSH 2.31 m[iU]/mL 0.36-3.74 Lab Report: [facility] [place] - Chemistry human chorionic gonadotropin, urine, qualitative (urine test) Positive Negative Office Visit: Initial OB Visit - Chemistry protein, total urine random UC mg/dL Office Visit: Initial OB Visit - Genetics/fertility test, date 10/24/2014 Office Visit: Initial OB Visit - Microbiology Herpes Simplex Virus Genital no Office Visit: Initial OB Visit - Urinalysis glucose, urine, semiquantitative UC nitrite, urine, semiquantitative UC Encounters Code Encounter Date Provider Facility CPT-62468 Level 3 Est. Patient 11:18:30 CDT Aris Charlton MD [facility] Procedures Code Procedure Name Date Entry Date Standard Description CPT-34002 Spec Collection and Handling Fee 10:00:31 CDT CPT-47412 Visit 10:00:30 CDT CPT-10993 Drug Screen Grisel 14:36:13 CDT
--- OUTSIDE RECORDS SUMMARY | 2018-08-28 06:06 | XMS REPORT | Clinical Summary ---
Author Author Admin, E Organization [facility] Address Unknown Phone Unavailable Allergies, Adverse Reactions, Alerts Allergy Name Reaction Description Start Date Severity Status Provider No Known Allergies Bettye Sherwood MA Conditions or Problems Problem Name Problem Code [...] Active Rian Ortega MD Tobacco use disorder Trailer Driver well woman exam V72.31 Active Sasha Espitia APRN Routine gynecological examination Bariatric operative procedure V45.86 Active Mariely Farolanda RMRy Bariatric surgery status Physical examination V70.0 Active Sasha Espitia APRN Routine general medical examination at a health care facility Dysuria 788.1 Active Nereyda Rodriguez RETAIL SALES DIRECTOR Dysuria Urinary tract infection 599.0 Active Nereyda Rodriguez APRN Urinary tract infection, site not specified Bronchitis 490 Active Carline Best RETAIL SALES DIRECTOR Bronchitis, not specified as acute or chronic Health examination of defined subpopulations ICD-V70.5 Inactive [...] 30 weeks gestation of ICD-V28.9 Inactive Deepika RITCHIE 31 weeks gestation of ICD-V28.9 Inactive Deepika RITCHIE Medication List Medication Instructions Start Date Stop Date Generic Name NDC Status Provider Patient Instruction GUAIFENESIN 600 MG [id number] 1 twice a day as needed for congestion GUAIFENESIN 56094000494 Active Carline Best APRN Active SYMBICORT 160-4.5 MCG/ACT AERO 2 puff BID for 10 days BUDESONIDE-FORMOTEROL FUMARATE 28370271981 Active Carline Best APRN Active AZITHROMYCIN 250 MG TABS 2 po qd x 1 day, then 1 po qd x 4 days AZITHROMYCIN 44001716239 No Longer Active Carline Best APRN Active CIPRO 500 MG TAB 1 tablet by mouth twice daily CIPROFLOXACIN HCL 94848597128 No Longer Active Tariq Marrero MD Active AZO TABS TABS 2 tabs qd PHENAZOPYRIDINE HCL TABS 71711238988 No Longer Active Tariq Marrero MD Active CIPROFLOXACIN HCL 250 MG ORAL TABS 1 twice a day for bladder infection 07/24 CIPROFLOXACIN HCL 90776252663 No Longer Active Tariq Marrero MD Active SM VITAMIN B12 TR 1000 MCG ORAL CR-TABS 1 tab po daily CYANOCOBALAMIN 86177800625 No Longer Active Nereyda Rodriguez APRN Active CARAFATE 1 GM TAB 1 tab po as needed up to 4 times per day SUCRALFATE 93159310023 No Longer Active Nereyda Rodriguez APRN Active PNV PLUS MULTIVITAMIN 27-1 MG ORAL TABS 1 daily VIT-FE FUMARATE-FA 47362182146 No Longer Active Sasha Espitia APRN Active CHANTIX STARTING MONTH DANILO 0.5 MG X 11 & 1 MG X 42 TABS take as directed 2015 VARENICLINE TARTRATE 46792196537 No Longer Active Sasha Espitia APRN Active CHANTIX 1 MG TABS 1 twice a day to help quit smoking VARENICLINE TARTRATE 17918941718 No Longer Active Sasha Espitia APRN Active OMEPRAZOLE 20 MG CPDR 1 tablet by mouth daily OMEPRAZOLE 18498547681 Active Sasha Espitia APRN Active FLINSTONES GUMMIES OMEGA-3 DHA ORAL CHEW 2 gummies per day PEDIATRIC MULTIPLE VIT-C-FA 68140501331 Active Sasha Espitia APRN Active CLINDAMYCIN HCL 150 MG CAPS 1 four times a day for 1 week CLINDAMYCIN HCL 20024597239 No Longer Active Karen Jaramillo MD Active TRIAMCINOLONE ACETONIDE 0.1 % CREA Apply to affected areas TID for up to 1 week TRIAMCINOLONE ACETONIDE 09470336387 No Longer Active Rian Ortega MD Active ZITHROMAX 1 GM ORAL PACK Take 1 time and recheck lab in 2-3 weeks AZITHROMYCIN 76504812890 No Longer Active Rian Ortega MD Active FLAGYL 500 MG TAB four tabs PO x 1 METRONIDAZOLE 33230776358 No Longer Active Aris Charlton MD Active FLAGYL 500 MG TAB four tabs PO x 1 FLAGYL 500 MG TAB 443979 METRONIDAZOLE Inactive ZITHROMAX 1 GM ORAL PACK Take 1 time and recheck lab in 2-3 weeks ZITHROMAX 1 GM ORAL PACK 297228 AZITHROMYCIN Inactive TRIAMCINOLONE ACETONIDE 0.1 % CREA Apply to affected areas TID for up to 1 week TRIAMCINOLONE ACETONIDE 0.1 % CREA 6717572 TRIAMCINOLONE ACETONIDE Inactive CLINDAMYCIN HCL 150 MG CAPS 1 four times a day for 1 week CLINDAMYCIN HCL 150 MG CAPS 406328 CLINDAMYCIN HCL Inactive CHANTIX 1 MG TABS [...] per day 06/27 CARAFATE 1 GM TAB 126583 SUCRALFATE Inactive SM VITAMIN B12 TR 1000 MCG ORAL CR-TABS 1 tab po daily SM VITAMIN B12 TR 1000 MCG ORAL CR-TABS CYANOCOBALAMIN Inactive CIPROFLOXACIN HCL 250 MG ORAL TABS 1 twice a day for bladder infection 07/24 CIPROFLOXACIN HCL 250 MG ORAL TABS 171598 CIPROFLOXACIN HCL Inactive AZO TABS TABS 2 tabs qd AZO TABS TABS PHENAZOPYRIDINE HCL TABS Inactive CIPRO 500 MG TAB 1 tablet by mouth twice daily CIPRO 500 MG TAB 768261 CIPROFLOXACIN HCL Inactive AZITHROMYCIN 250 MG TABS 2 po qd x 1 day, then 1 po qd x 4 days AZITHROMYCIN 250 MG TABS 290944 AZITHROMYCIN Inactive Immunizations Vaccine Administration Date Value Standard Description hepatitis B vaccine series yes hepatitis B vaccine, unspecified formulation Vital Signs Date Name Value Unit Range Description blood pressure, diastolic 64 mm[Hg] BP calvo [...] HGBA1C - Chemistry sodium, serum 142 mmol/L 044-447 9383 carbon dioxide, venous blood 32.8 mmol/L 21.0-32.0 [...] 142-424 Lab Report: Lipid Panel - Chemistry LDL cholesterol, serum 93 mg/dL 0-130 HDL cholesterol, serum 47 mg/dL 32-96 triglyceride, serum, fasting 124 mg/dL 30-200 cholesterol, serum 165 mg/dL 130-200 Lab Report: Prothrombin Time - Coagulation prothrombin [...] >=1.030 1.000-1.030 pH, urine, semiquantitative 5.5 5.0-8.5 Lab Report: VITAMIN B12/FOLATE, SERUM PANE, FERRITIN, VITAMIN D, 25-HYDR ... - Chemistry vitamin D 25-hydroxy, serum 32 ng/mL 30-100 Encounters Code Encounter Date Provider Facility CPT-82929 Level 3 Est. Patient 11:17:51 CDT [facility] CPT-65907 Level 3 Est. Patient 15:43:38 CDT Tariq Marrero MD [facility] CPT-00461 Level 3 Est. Patient 11:16:27 ENGRAVER LETTER Nereyda Rodriguez [facility] CPT-30621 Level 4 Est. Patient 08:56:42 ENGRAVER LETTER Sasha Espitai [facility] CPT-48731 Level 3 Est. Patient 16:40:58 CDT Rian Ortega MD [facility] CPT-44923 Level 3 Est. Patient 13:55:16 ENGRAVER LETTER Rian [facility]ga [facility] CPT-26387 Level 3 Est. Patient 10:42:52 CDT Corrina Garcianikita [facility] CPT-88316 Level 3 Est. Patient 11:18:30 CDT Aris Charlton MD [facility] Procedures Code Procedure Name Date Entry Date Standard Description CPT-99875 UA w micro - LAB USE ONLY 13:09:18 ENGRAVER LETTER CPT-39416 Urine Culture - LAB USE ONLY 13:09:18 ENGRAVER LETTER CPT-84526 Wet Mount - LAB USE ONLY 11:11:39 ENGRAVER LETTER CPT-85443 Lipid - LAB USE ONLY 15:05:24 ENGRAVER LETTER CPT-63843 PT/INR - LAB USE ONLY 12:14:07 CDT CPT-64443 HGBA1C - LAB USE ONLY 12:14:07 CDT CPT-09539 CMP - LAB USE ONLY 12:14:07 CDT CPT-31263 CBC - LAB USE ONLY 12:14:07 CDT CPT-25325 Venipuncture Draw Fee 12:14:06 CDT CPT-J0702 Celestone 6 mg (Betamethasone) 15:04:45 ENGRAVER LETTER CPT-39474 Abx/Therapy Injection 15:04:45 ENGRAVER LETTER CPT-J0702 Celestone 12 mg (Betamethasone) 11:45:31 ENGRAVER LETTER CPT-45421 Visit 11:39:52 ENGRAVER LETTER CPT-65108Q Sono biophysical pro wo stress test-[facility] 11:21: 42 ENGRAVER LETTER CPT-40121 Visit 16:00:50 ENGRAVER LETTER CPT-92595T Sono biophysical pro wo stress test-[facility] 13:12: 18 ENGRAVER LETTER CPT-04477 Sono biophysical pro wo stress test 11:17:21 ENGRAVER LETTER 05/21 CPT-81612 Tdap 7yrs or > 15:22:51 ENGRAVER LETTER CPT-24207 Immunization Single Admin 15:22:51 ENGRAVER LETTER CPT-04961 Tdap 7yrs or > 15:09:13 ENGRAVER LETTER CPT-82340 Visit 14:54:16 ENGRAVER LETTER CPT-79580 Fluzone Quadrivalent Intramuscular Suspension 0.5 ML 16: 58:58 CDT CPT-13838 Administration single or combination vaccine inc oral 16 :58:58 CDT CPT-70763 Fluzone Thim Free 36mo and older 14:47:39 CDT CPT-11040 Visit 14:47:39 CDT CPT-79110 Sono OB limited 10:30:07 CDT CPT-76611 Visit 10:04:44 CDT CPT-67818 Sono OB comp > 14 weeks 12:50:41 CDT CPT-08176 Visit 12:06:25 CDT CPT-63131 Visit 12:43:15 CDT CPT-94232 Visit 10:06:02 CDT CPT-59214 Spec Collection and Handling Fee 10:00:31 CDT CPT-34645 Visit 10:00:30 CDT CPT-36288 Drug Screen Grisel 14:36:13 CDT
--- OUTSIDE RECORDS SUMMARY | 2018-08-28 06:07 | XMS REPORT | Clinical Summary ---
Author Author Admin, E Organization [facility] Address Unknown Phone Unavailable Allergies, Adverse Reactions, Alerts Allergy Name Reaction Description Start Date Severity Status Provider No Known Allergies Mahsa Raida Conditions or Problems Problem Name Problem Code [...] Active Rian Ortega MD Tobacco use disorder Hand Mounter well woman exam V72.31 Active Sasha Espitia [...] Generic Name NDC Status Provider Patient Instruction CIPRO 500 MG TAB 1 tablet by mouth twice daily CIPROFLOXACIN HCL 35001880624 No Longer Active Tariq Marrero MD Active AZO TABS TABS 2 tabs qd PHENAZOPYRIDINE HCL TABS 24974765094 No Longer Active Tariq Marrero MD Active CIPROFLOXACIN HCL 250 MG ORAL TABS 1 twice a day for bladder infection 07/24 CIPROFLOXACIN HCL 18598542188 No Longer Active Tariq Marrero MD Active SM VITAMIN B12 TR 1000 MCG ORAL CR-TABS 1 tab po daily CYANOCOBALAMIN 26667555742 No Longer Active Nereyda Rodriguez APRN Active CARAFATE 1 GM TAB 1 tab po as needed up to 4 times per day SUCRALFATE 69224903547 No Longer Active Nereyda Rodriguez APRN Active PNV PLUS MULTIVITAMIN 27-1 MG ORAL TABS 1 daily VIT-FE FUMARATE-FA 43570728262 No Longer Active Sasha Espitia APRN Active CHANTIX STARTING MONTH DANILO 0.5 MG X 11 & 1 MG X 42 TABS take as directed 2015 VARENICLINE TARTRATE 24378895530 No Longer Active Sasha Espitia APRN Active CHANTIX 1 MG TABS 1 twice a day to help quit smoking VARENICLINE TARTRATE 54659324161 No Longer Active Sasha Espitia APRN Active OMEPRAZOLE 20 MG CPDR 1 tablet by mouth daily OMEPRAZOLE 66845395000 Active Sasha Espitia APRN Active FLINSTONES GUMMIES OMEGA-3 DHA ORAL CHEW 2 gummies per day PEDIATRIC MULTIPLE VIT-C-FA 73177799231 Active Sasha Espitia APRN Active CLINDAMYCIN HCL 150 MG CAPS 1 four times a day for 1 week CLINDAMYCIN HCL 83355672150 No Longer Active Karen Jaramillo MD Active TRIAMCINOLONE ACETONIDE 0.1 % CREA Apply to affected areas TID for up to 1 week TRIAMCINOLONE ACETONIDE 11257939596 No Longer Active Rian Ortega MD Active ZITHROMAX 1 GM ORAL PACK Take 1 time and recheck lab in 2-3 weeks AZITHROMYCIN 47330910274 No Longer Active Rian Ortega MD Active FLAGYL 500 MG TAB four tabs PO x 1 METRONIDAZOLE 24494989933 No Longer Active Aris Charlton MD Active FLAGYL 500 MG TAB four tabs PO x 1 FLAGYL 500 MG TAB 402336 METRONIDAZOLE Inactive ZITHROMAX 1 GM ORAL PACK Take 1 time and recheck lab in 2-3 weeks ZITHROMAX 1 GM ORAL PACK 492984 AZITHROMYCIN Inactive TRIAMCINOLONE ACETONIDE 0.1 % CREA Apply to affected areas TID for up to 1 week TRIAMCINOLONE ACETONIDE 0.1 % CREA 0436682 TRIAMCINOLONE ACETONIDE Inactive CLINDAMYCIN HCL 150 MG CAPS 1 four times a day for 1 week CLINDAMYCIN HCL 150 MG CAPS 526179 CLINDAMYCIN HCL Inactive CHANTIX 1 MG TABS [...] per day 06/27 CARAFATE 1 GM TAB 671029 SUCRALFATE Inactive SM VITAMIN B12 TR 1000 MCG ORAL CR-TABS 1 tab po daily SM VITAMIN B12 TR 1000 MCG ORAL CR-TABS CYANOCOBALAMIN Inactive CIPROFLOXACIN HCL 250 MG ORAL TABS 1 twice a day for bladder infection 07/24 CIPROFLOXACIN HCL 250 MG ORAL TABS 19740628 CIPROFLOXACIN HCL Inactive AZO TABS TABS 2 tabs qd AZO TABS TABS PHENAZOPYRIDINE HCL TABS Inactive CIPRO 500 MG TAB 1 tablet by mouth twice daily CIPRO 500 MG TAB 100837 CIPROFLOXACIN HCL Inactive Immunizations Vaccine Administration Date Value Standard Description hepatitis B vaccine series yes hepatitis B vaccine, unspecified formulation Vital Signs Date Name Value Unit Range Description blood pressure, diastolic - 8462-4 58 mm[Hg] BP calvo blood pressure, systolic - 8480-6 114 mm[Hg] BP sys height E&M - 8302-2 62 [in_us] Bdy height pulse rate E&M - 8867-4 61 /min Heart rate temperature E&M 98.8 [degF] Body temperature weight E&M - 3141-9 161.5 [lb_av] Weight Measured temperature E&M 98.3 [degF] Body temperature weight E&M - 3141-9 172.5 [lb_av] Weight Measured blood pressure, diastolic - 8462-4 67 mm[Hg] [...] HGBA1C - Chemistry sodium, serum 142 mmol/L [phone] carbon dioxide, venous blood 32.8 mmol/L 21.0-32.0 [...] Panel - Chemistry cholesterol, serum 165 mg/dL [phone] triglyceride, serum, fasting 124 mg/dL 30-200 HDL [...] 30-100 Encounters Code Encounter Date Provider Facility CPT-46595 Level 3 Est. Patient 15:43:38 CDT Tariq Marrero MD [facility] CPT-91978 Level 3 Est. Patient 11:16:27 HEAD TENNIS COACH Nereyda Rodriguez APRN [facility] CPT-71052 Level 4 Est. Patient 08:56:42 HEAD TENNIS COACH Sasha Espitia [facility] CPT-51250 Level 3 Est. Patient 16:40:58 CDT Rian Ortega MD [facility] CPT-90193 Level 3 Est. Patient 13:55:16 HEAD TENNIS COACH Rian Ortega MD [facility] CPT-41961 Level 3 Est. Patient 10:42:52 CDT Corrina Bailon [facility] CPT-12147 Level 3 Est. Patient 11:18:30 CDT Aris Charlton MD [facility] Procedures Code Procedure Name Date Entry Date Standard Description CPT-88463 UA w micro - LAB USE ONLY 13:09:18 HEAD [employer]ENNIS [employer]ACH CPT-32667 Urine Culture - LAB USE ONLY 13:09:18 HEAD TENNIS COACH CPT-55471 Wet Mount - LAB USE ONLY 11:11:39 HEAD TENNIS COACH CPT-94543 Lipid - LAB USE ONLY 15:05:24 HEAD TENNIS COACH CPT-41148 PT/INR - LAB USE ONLY 12:14:07 CDT CPT-00717 HGBA1C - LAB USE ONLY 12:14:07 CDT CPT-93213 CMP - LAB USE ONLY 12:14:07 CDT CPT-39392 CBC - LAB USE ONLY 12:14:07 CDT CPT-97843 Venipuncture Draw Fee 12:14:06 CDT CPT-J0702 Celestone 6 mg (Betamethasone) 15:04:45 HEAD TENNIS COACH CPT-52894 Abx/Therapy Injection 15:04:45 HEAD TENNIS COACH CPT-J0702 Celestone 12 mg (Betamethasone) 11:45:31 HEAD TENNIS COACH CPT-81520 Visit 11:39:52 HEAD TENNIS COACH CPT-78953S Sono biophysical pro wo stress test-[place] Only 11:21: 42 HEAD TENNIS COACH CPT-48564 Visit 16:00:50 HEAD TENNIS COACH CPT-36498S Sono biophysical pro wo stress test-[place] Only 13:12: 18 HEAD TENNIS COACH CPT-84504 Sono biophysical pro wo stress test 11:17:21 HEAD TENNIS COACH 05/21 CPT-63776 Tdap 7yrs or > 15:22:51 HEAD TENNIS COACH CPT-91108 Immunization Single Admin 15:22:51 HEAD TENNIS COACH CPT-58449 Tdap 7yrs or > 15:09:13 HEAD TENNIS COACH CPT-57265 Visit 14:54:16 HEAD TENNIS COACH CPT-75150 Fluzone Quadrivalent Intramuscular Suspension 0.5 ML 16: 58:58 CDT CPT-32320 Administration single or combination vaccine inc oral 16 :58:58 CDT CPT-12796 Fluzone Thim Free 36mo and older 14:47:39 CDT CPT-24703 Visit 14:47:39 CDT CPT-77703 Sono OB limited 10:30:07 CDT CPT-18947 Visit 10:04:44 CDT CPT-21300 Sono OB comp > 14 weeks 12:50:41 CDT CPT-84675 Visit 12:06:25 CDT CPT-34637 Visit 12:43:15 CDT CPT-10791 Visit 10:06:02 CDT CPT-30417 Spec Collection and Handling Fee 10:00:31 CDT CPT-41188 Visit 10:00:30 CDT CPT-61654 Drug Screen Grisel 14:36:13 CDT
--- OUTSIDE RECORDS SUMMARY | 2018-08-28 06:07 | XMS REPORT | Clinical Summary ---
Author Author Admin, [facility] Organization [facility] Address Unknown Phone Unavailable Allergies, Adverse [...] Active Rian Ortega MD Tobacco use disorder College Recruiter well woman exam V72.31 Active Sasha Espitia APRN Routine gynecological examination Bariatric operative procedure V45.86 Active Mariely Chitorolanda RMA Bariatric surgery status Physical examination V70.0 Active Sasha Espitia APRN Routine general medical examination at a health care facility Health examination of defined subpopulations ICD-V70.5 Inactive [...] MG ORAL TABS 1 daily VIT-FE FUMARATE-FA 60202489946 No Longer Active Sasha Espitia APRN Active CHANTIX STARTING MONTH DANILO 0.5 MG X 11 & 1 MG X 42 TABS take as directed 2015 VARENICLINE TARTRATE 12698433874 No Longer Active Sasha Espitia APRN Active CHANTIX 1 MG TABS 1 twice a day to help quit smoking VARENICLINE TARTRATE 02216794790 No Longer Active Sashashante Espitia APRN Active OMEPRAZOLE 20 MG CPDR 1 tablet by mouth daily OMEPRAZOLE 80931588534 Active Sasha Espitia BETO Active CARAFATE 1 GM TAB 1 tab po as needed up to 4 times per day SUCRALFATE 76799566806 Active Sasha Omkar PÉREZ Active FLINSTONES GUMMIES OMEGA-3 DHA ORAL CHEW 2 gummies per day PEDIATRIC MULTIPLE VIT-C-FA 81821125218 Active Sasha Espitia BETO Active SM VITAMIN B12 TR 1000 MCG ORAL CR-TABS 1 tab po daily CYANOCOBALAMIN 96281859424 Active Sasha Espitia BETO Active CLINDAMYCIN HCL 150 MG CAPS 1 four times a day for 1 week CLINDAMYCIN HCL 08086967478 No Longer Active Karen Jaramillo MD Active TRIAMCINOLONE ACETONIDE 0.1 % CREA Apply to affected areas TID for up to 1 week TRIAMCINOLONE ACETONIDE 98591023316 No Longer Active Rian Ortega MD Active ZITHROMAX 1 GM ORAL PACK Take 1 time and recheck lab in 2-3 weeks AZITHROMYCIN 71737586800 No Longer Active Rian Ortega MD Active FLAGYL 500 MG TAB four tabs PO x 1 METRONIDAZOLE 13224356172 No Longer Active Aris Charlton MD Active FLAGYL 500 MG TAB four tabs PO x 1 FLAGYL 500 MG TAB 907546 METRONIDAZOLE Inactive ZITHROMAX 1 GM ORAL PACK Take 1 time and recheck lab in 2-3 weeks ZITHROMAX 1 GM ORAL PACK 323935 AZITHROMYCIN Inactive TRIAMCINOLONE ACETONIDE 0.1 % CREA Apply to affected areas TID for up to 1 week TRIAMCINOLONE ACETONIDE 0.1 % CREA 0606644 TRIAMCINOLONE ACETONIDE Inactive CLINDAMYCIN HCL 150 MG CAPS 1 four times a day for 1 week CLINDAMYCIN HCL 150 MG CAPS 278570 CLINDAMYCIN HCL Inactive CHANTIX 1 MG TABS [...] HGBA1C - Chemistry sodium, serum 142 mmol/L [phone] carbon dioxide, venous blood 32.8 mmol/L 21.0-32.0 [...] Panel - Chemistry cholesterol, serum 165 mg/dL [phone] triglyceride, serum, fasting 124 mg/dL 30-200 HDL cholesterol, serum 47 mg/dL 32-96 LDL cholesterol, serum 93 mg/dL 0-130 Lab Report: Prothrombin Time - Coagulation prothrombin time (patient) 12.0 SECS s 11.1-13.4 international normalized ratio (INR) 1.0 1.0-3.5 Lab Report: VITAMIN B12/FOLATE, SERUM PANE, FERRITIN, VITAMIN D, 25-HYDR ... - Chemistry vitamin D 25-hydroxy, serum 32 ng/mL 30-100 Office Visit: follow up ob - Urinalysis protein, urine, semiquantitative (dipstick) Tr glucose, urine, semiquantitative N nitrite, urine, semiquantitative N Encounters Code Encounter Date Provider Facility CPT-39181 Level 4 Est. Patient 08:56:42 PHOSPHORIC ACID SUPERVISOR Sasha Espitia [facility] CPT-37161 Level 3 Est. Patient 16:40:58 CDT Rian Ortega MD [facility] CPT-08874 Level 3 Est. Patient 13:55:16 PHOSPHORIC ACID SUPERVISOR Rian Ortega MD [facility] CPT-23798 Level 3 Est. Patient 10:42:52 CDT Corrina Bailon [facility] CPT-24141 Level 3 Est. Patient 11:18:30 CDT Aris Charlton MD [facility] Procedures Code Procedure Name Date Entry Date Standard Description CPT-13305 Wet Mount - LAB USE ONLY 11:11:39 PHOSPHORIC ACID SUPERVISOR CPT-38385 Lipid - LAB USE ONLY 15:05:24 PHOSPHORIC ACID SUPERVISOR CPT-20651 PT/INR - LAB USE ONLY 12:14:07 CDT CPT-12787 HGBA1C - LAB USE ONLY 12:14:07 CDT CPT-78837 CMP - LAB USE ONLY 12:14:07 CDT CPT-47648 CBC - LAB USE ONLY 12:14:07 CDT CPT-55689 Venipuncture Draw Fee 12:14:06 CDT CPT-J0702 Celestone 6 mg (Betamethasone) 15:04:45 PHOSPHORIC ACID SUPERVISOR CPT-46811 Abx/Therapy Injection 15:04:45 PHOSPHORIC ACID SUPERVISOR CPT-J0702 Celestone 12 mg (Betamethasone) 11:45:31 PHOSPHORIC ACID SUPERVISOR CPT-65240 Visit 11:39:52 PHOSPHORIC ACID SUPERVISOR CPT-17269T Sono biophysical pro wo stress test-[place] Only 11:21: 42 PHOSPHORIC ACID SUPERVISOR CPT-29579 Visit 16:00:50 PHOSPHORIC ACID SUPERVISOR CPT-21968B Sono biophysical pro wo stress test-[place] Only 13:12: 18 PHOSPHORIC ACID SUPERVISOR CPT-37455 Sono biophysical pro wo stress test 11:17:21 PHOSPHORIC ACID SUPERVISOR 05/21 CPT-08303 Tdap 7yrs or > 15:22:51 PHOSPHORIC ACID SUPERVISOR CPT-77763 Immunization Single Admin 15:22:51 PHOSPHORIC ACID SUPERVISOR CPT-69250 Tdap 7yrs or > 15:09:13 PHOSPHORIC ACID SUPERVISOR CPT-75542 Visit 14:54:16 PHOSPHORIC ACID SUPERVISOR CPT-77590 Fluzone Quadrivalent Intramuscular Suspension 0.5 ML 16: 58:58 CDT CPT-78115 Administration single or combination vaccine inc oral 16 :58:58 CDT CPT-96920 Fluzone Thim Free 36mo and older 14:47:39 CDT CPT-62284 Visit 14:47:39 CDT CPT-20946 Sono OB limited 10:30:07 CDT CPT-23069 Visit 10:04:44 CDT CPT-40692 Sono OB comp > 14 weeks 12:50:41 CDT CPT-74819 Visit 12:06:25 CDT CPT-80709 Visit 12:43:15 CDT CPT-95694 Visit 10:06:02 CDT CPT-02244 Spec Collection and Handling Fee 10:00:31 CDT CPT-33716 Visit 10:00:30 CDT CPT-38493 Drug Screen Grisel 14:36:13 CDT
--- OUTSIDE RECORDS SUMMARY | 2018-08-28 06:08 | XMS REPORT | Clinical Summary ---
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 exam V72.31 Active Sasha Espitia [...] RITCHIE Low lying placenta ICD-762.2 Inactive Rian rOtega MD 28 weeks gestation of ICD-V28.9 Inactive [...] tablet by mouth twice daily CIPROFLOXACIN HCL 41451287833 Active Tariq Marrero MD Active AZO TABS TABS 2 tabs qd PHENAZOPYRIDINE HCL TABS 40518306343 No Longer Active Tariq Marrero MD Active CIPROFLOXACIN HCL 250 MG ORAL TABS 1 twice a day for bladder infection 07/24 CIPROFLOXACIN HCL 32060070443 No Longer Active Tariq Marrero MD Active SM VITAMIN B12 TR 1000 MCG ORAL CR-TABS 1 tab po daily CYANOCOBALAMIN 62026047307 No Longer Active Nereyda Rodriguez APRN Active CARAFATE 1 GM TAB 1 tab po as needed up to 4 times per day SUCRALFATE 24464528286 No Longer Active Nereyda Rodriguez APRN Active PNV PLUS MULTIVITAMIN 27-1 MG ORAL TABS 1 daily VIT-FE FUMARATE-FA 18819923284 No Longer Active Sasha Espitia APRN Active CHANTIX STARTING MONTH DANILO 0.5 MG X 11 & 1 MG X 42 TABS take as directed 2015 VARENICLINE TARTRATE 55478828551 No Longer Active Sasha Espitia APRN Active CHANTIX 1 MG TABS 1 twice a day to help quit smoking VARENICLINE TARTRATE 10391267029 No Longer Active Sasha Espitia APRN Active OMEPRAZOLE 20 MG CPDR 1 tablet by mouth daily OMEPRAZOLE 06527323307 Active Sasha Espitia APRN Active FLINSTONES GUMMIES OMEGA-3 DHA ORAL CHEW 2 gummies per day PEDIATRIC MULTIPLE VIT-C-FA 67808330843 Active Sasha Espitia APRN Active CLINDAMYCIN HCL 150 MG CAPS 1 four times a day for 1 week CLINDAMYCIN HCL 04998462678 No Longer Active Karen Jaramillo MD Active TRIAMCINOLONE ACETONIDE 0.1 % CREA Apply to affected areas TID for up to 1 week TRIAMCINOLONE ACETONIDE 93225444009 No Longer Active Rian Ortega MD Active ZITHROMAX 1 GM ORAL PACK Take 1 time and recheck lab in 2-3 weeks AZITHROMYCIN 18069294169 No Longer Active Rian Ortega MD Active FLAGYL 500 MG TAB four tabs PO x 1 METRONIDAZOLE 81083263750 No Longer Active Aris Charlton MD Active FLAGYL 500 MG TAB four tabs PO x 1 FLAGYL 500 MG TAB 354693 METRONIDAZOLE Inactive ZITHROMAX 1 GM ORAL PACK Take 1 time and recheck lab in 2-3 weeks ZITHROMAX 1 GM ORAL PACK 259798 AZITHROMYCIN Inactive TRIAMCINOLONE ACETONIDE 0.1 % CREA Apply to affected areas TID for up to 1 week TRIAMCINOLONE ACETONIDE 0.1 % CREA 6612877 TRIAMCINOLONE ACETONIDE Inactive CLINDAMYCIN HCL 150 MG CAPS 1 four times a day for 1 week CLINDAMYCIN HCL 150 MG CAPS 417552 CLINDAMYCIN HCL Inactive CHANTIX 1 MG TABS [...] per day 06/27 CARAFATE 1 GM TAB 453247 SUCRALFATE Inactive SM VITAMIN B12 TR 1000 MCG ORAL CR-TABS 1 tab po daily SM VITAMIN B12 TR 1000 MCG ORAL CR-TABS CYANOCOBALAMIN Inactive CIPROFLOXACIN HCL 250 MG ORAL TABS 1 twice a day for bladder infection 07/24 CIPROFLOXACIN HCL 250 MG ORAL TABS 19740628 CIPROFLOXACIN HCL Inactive AZO TABS TABS 2 tabs qd AZO TABS TABS PHENAZOPYRIDINE HCL TABS Inactive Immunizations Vaccine Administration Date Value Standard [...] Description Lab Report: CBC, Comp. Metabolic Panel, BA1C - Chemistry sodium, serum 142 mmol/L [phone] carbon dioxide, venous blood 32.8 mmol/L 21.0-32.0 [...] Panel - Chemistry cholesterol, serum 165 mg/dL [phone] triglyceride, serum, fasting 124 mg/dL 30-200 HDL [...] 30-100 Encounters Code Encounter Date Provider Facility CPT-03895 Level 3 Est. Patient 15:43:38 CDT Tariq Marrero MD [facility] CPT-68363 Level 3 Est. Patient 11:16:27 FINANCIAL SPECIALIST Nereyda Rodriguez [facility] CPT-59164 Level 4 Est. Patient 08:56:42 FINANCIAL SPECIALIST Sasha Espitia [facility] CPT-55298 Level 3 Est. Patient 16:40:58 CDT Rian Ortega MD [facility] CPT-57107 Level 3 Est. Patient 13:55:16 FINANCIAL SPECIALIST Rian Ortega MD [facility] CPT-84071 Level 3 Est. Patient 10:42:52 CDT Corrina Bailon APRN [facility] CPT-03769 Level 3 Est. Patient 11:18:30 CDT Aris Charlton MD [facility] Procedures Code Procedure Name Date Entry Date Standard Description CPT-05141 UA w micro - LAB USE ONLY 13:09:18 FINANCIAL SPECIALIST CPT-83205 Urine Culture - LAB USE ONLY 13:09:18 FINANCIAL SPECIALIST CPT-98273 Wet Mount - LAB USE ONLY 11:11:39 FINANCIAL SPECIALIST CPT-85329 Lipid - LAB USE ONLY 15:05:24 FINANCIAL SPECIALIST CPT-06096 PT/INR - LAB USE ONLY 12:14:07 CDT CPT-35162 HGBA1C - LAB USE ONLY 12:14:07 CDT CPT-91768 CMP - LAB USE ONLY 12:14:07 CDT CPT-36674 CBC - LAB USE ONLY 12:14:07 CDT CPT-57670 Venipuncture Draw Fee 12:14:06 CDT CPT-J0702 Celestone 6 mg (Betamethasone) 15:04:45 FINANCIAL SPECIALIST CPT-75185 Abx/Therapy Injection 15:04:45 FINANCIAL SPECIALIST CPT-J0702 Celestone 12 mg (Betamethasone) 11:45:31 FINANCIAL SPECIALIST CPT-11439 Visit 11:39:52 FINANCIAL SPECIALIST CPT-62108A Sono biophysical pro wo stress test-[place] Only 11:21: 42 FINANCIAL SPECIALIST CPT-32079 Visit 16:00:50 FINANCIAL SPECIALIST CPT-03394K Sono biophysical pro wo stress test-[place] Only 13:12: 18 FINANCIAL SPECIALIST CPT-22296 Sono biophysical pro wo stress test 11:17:21 FINANCIAL SPECIALIST 05/21 CPT-95117 Tdap 7yrs or > 15:22:51 FINANCIAL SPECIALIST CPT-92194 Immunization Single Admin 15:22:51 FINANCIAL SPECIALIST CPT-67155 Tdap 7yrs or > 15:09:13 FINANCIAL SPECIALIST CPT-22437 Visit 14:54:16 FINANCIAL SPECIALIST CPT-04226 Fluzone Quadrivalent Intramuscular Suspension 0.5 ML 16: 58:58 CDT CPT-81301 Administration single or combination vaccine inc oral 16 :58:58 CDT CPT-27057 Fluzone Thim Free 36mo and older 14:47:39 CDT CPT-37808 Visit 14:47:39 CDT CPT-72173 Sono OB limited 10:30:07 CDT CPT-59422 Visit 10:04:44 CDT CPT-43862 Sono OB comp > 14 weeks 12:50:41 CDT CPT-68801 Visit 12:06:25 CDT CPT-69536 Visit 12:43:15 CDT CPT-28824 Visit 10:06:02 CDT CPT-62407 Spec Collection and Handling Fee 10:00:31 CDT CPT-37974 Visit 10:00:30 CDT CPT-83971 Drug Screen [place] 14:36:13 CDT
--- OUTSIDE RECORDS SUMMARY | 2018-08-28 06:08 | XMS REPORT | Clinical Summary ---
Author Author Admin, E Organization [facility] Address Unknown Phone Unavailable Allergies, Adverse Reactions, [...] Active Rian Ortega MD Tobacco use disorder Improvement Spec well woman exam V72.31 Active Sasha Tan APRN Routine gynecological examination Bariatric operative procedure V45.86 Active Mariely Dalerolanda RMA Bariatric surgery status Physical examination V70.0 Active Sasha aTn APRN Routine general medical examination at a [...] Instructions Start Date Stop Date Generic Name ND Status Provider Patient Instruction BACTRIM DS 800-160 MG ORAL TABLET 1 twice a day SULFAMETHOXAZOLE-TRIMETHOPRIM 60318551581 Active Angelica Jarrett SALESPERSON TERRAZZO TILES Active ZITHROMAX Z-DANILO 250 MG ORAL TABLET 2 today, then 1 daily for 4 days AZITHROMYCIN 29811774768 No Longer Active Mahsa Alvarez Active AZITHROMYCIN 250 MG ORAL TABLET 2 po qd x 1 day, then 1 po qd x 4 days 07/27 AZITHROMYCIN 77003204605 No Longer Active Carline Best SECURITY SYSTEM ADMINISTRATOR Active GUAIFENESIN ER 600 MG ORAL TABLET EXTENDED RELEASE 12 HOUR 1 twice a day as needed for congestion GUAIFENESIN 46425141984 No Longer Active Sasha Tan APRN Active CYCLOBENZAPRINE HCL 10 MG ORAL TABLET 1 three times a day as needed for muscle spasm CYCLOBENZAPRINE HCL 75369721071 No Longer Active Sasha Tan APRN Active SYMBICORT 160-4.5 MCG/ACT INHALATION AEROSOL 2 puff BID for 10 days BUDESONIDE-FORMOTEROL FUMARATE 44318144804 No Longer Active Rian Ortega MD Active AZITHROMYCIN 250 MG ORAL TABLET 2 po qd x 1 day, then 1 po qd x 4 days 02/15 AZITHROMYCIN 81613742986 No Longer Active Carline Best APRN Active CIPRO 500 MG ORAL TABLET 1 tablet by mouth twice daily CIPROFLOXACIN HCL 28666888804 No Longer Active Tariq Marrero MD Active AZO TABS TABLET 2 tabs qd PHENAZOPYRIDINE HCL TABS 95723499271 No Longer Active Tariq Marrero MD Active CIPROFLOXACIN HCL 250 MG ORAL TABLET 1 twice a day for bladder infection 2016 CIPROFLOXACIN HCL 79575795073 No Longer Active Tariq Marrero MD Active SM VITAMIN B12 TR 1000 MCG ORAL TABLET EXTENDED RELEASE 1 tab po daily 04/24 CYANOCOBALAMIN 59729525280 No Longer Active Nereyda Rodriguez APRN Active CARAFATE 1 GM ORAL TABLET 1 tab po as needed up to 4 times per day SUCRALFATE 82359763909 No Longer Active Nereyda Rodriguez APRN Active PNV PLUS MULTIVITAMIN 27-1 MG ORAL TABLET 1 daily 04/24 VIT-FE FUMARATE-FA 19289736510 No Longer Active Sasha Tan APRN Active CHANTIX STARTING MONTH DANILO 0.5 MG X 11 & 1 MG X 42 ORAL TABLET take as directed VARENICLINE TARTRATE 53748382271 No Longer Active Sasha Tan APRN Active CHANTIX 1 MG ORAL TABLET 1 twice a day to help quit smoking 04/24 VARENICLINE TARTRATE 61231560501 No Longer Active Sasha Tan APRN Active OMEPRAZOLE 20 MG ORAL CAPSULE DELAYED RELEASE 1 tablet by mouth daily OMEPRAZOLE 29887269808 Active Sasha Tan APRN Active FLINSTONES GUMMIES OMEGA-3 DHA ORAL TABLET CHEWABLE 2 gummies per day PEDIATRIC MULTIPLE VIT-C-FA 54354855427 Active Sasha Tan APRN Active CLINDAMYCIN HCL 150 MG ORAL CAPSULE 1 four times a day for 1 week CLINDAMYCIN HCL 38327442025 No Longer Active Karen Jaramillo MD Active TRIAMCINOLONE ACETONIDE 0.1 % EXTERNAL CREAM Apply to affected areas TID for up to 1 week TRIAMCINOLONE ACETONIDE 98395160266 No Longer Active Rian Ortega MD Active ZITHROMAX 1 GM ORAL PACKET Take 1 time and recheck lab in 2-3 weeks AZITHROMYCIN 49147390066 No Longer Active Rian Ortega MD Active FLAGYL 500 MG ORAL TABLET four tabs PO x 1 METRONIDAZOLE 11057238866 No Longer Active Aris Charlton MD Active FLAGYL 500 MG ORAL TABLET four tabs PO x 1 FLAGYL 500 MG ORAL TABLET 352803 METRONIDAZOLE Inactive ZITHROMAX 1 GM ORAL PACKET Take 1 time and recheck lab in 2-3 weeks ZITHROMAX 1 GM ORAL PACKET 602807 AZITHROMYCIN Inactive TRIAMCINOLONE ACETONIDE 0.1 % EXTERNAL CREAM Apply to affected areas TID for up to 1 week TRIAMCINOLONE ACETONIDE 0.1 % EXTERNAL CREAM 1937472 TRIAMCINOLONE ACETONIDE Inactive CLINDAMYCIN HCL 150 MG ORAL CAPSULE 1 four times a day for 1 week CLINDAMYCIN HCL 150 MG ORAL CAPSULE 170698 CLINDAMYCIN HCL Inactive CHANTIX 1 MG ORAL [...] per day CARAFATE 1 GM ORAL TABLET 705140 SUCRALFATE Inactive SM VITAMIN B12 TR 1000 MCG ORAL TABLET EXTENDED RELEASE 1 tab po daily 04/24 SM VITAMIN B12 TR 1000 MCG ORAL TABLET EXTENDED RELEASE CYANOCOBALAMIN Inactive CIPROFLOXACIN HCL 250 MG ORAL TABLET 1 twice a day for bladder infection 2016 CIPROFLOXACIN HCL 250 MG ORAL TABLET 340425 CIPROFLOXACIN HCL Inactive AZO TABS TABLET 2 tabs qd AZO TABS TABLET PHENAZOPYRIDINE HCL TABS Inactive SYMBICORT 160-4.5 MCG/ACT INHALATION AEROSOL 2 puff BID for 10 days SYMBICORT 160-4.5 MCG/ACT INHALATION AEROSOL BUDESONIDE- FORMOTEROL FUMARATE Inactive CYCLOBENZAPRINE HCL 10 MG ORAL TABLET 1 three times a day as needed for muscle spasm CYCLOBENZAPRINE HCL 10 MG ORAL TABLET 501766 CYCLOBENZAPRINE HCL Inactive GUAIFENESIN ER 600 MG ORAL TABLET EXTENDED RELEASE 12 HOUR 1 twice a day as needed for congestion GUAIFENESIN ER 600 MG ORAL TABLET EXTENDED RELEASE 12 HOUR GUAIFENESIN Inactive CIPRO 500 MG ORAL TABLET 1 tablet by mouth twice daily CIPRO 500 MG ORAL TABLET 542460 CIPROFLOXACIN HCL Inactive AZITHROMYCIN 250 MG ORAL TABLET 2 po qd x 1 day, then 1 po qd x 4 days 02/15 AZITHROMYCIN 250 MG ORAL TABLET 910780 AZITHROMYCIN Inactive AZITHROMYCIN 250 MG ORAL TABLET 2 po qd x 1 day, then 1 po qd x 4 days 07/27 AZITHROMYCIN 250 MG ORAL TABLET 457216 AZITHROMYCIN Inactive ZITHROMAX Z-DANILO 250 MG ORAL TABLET 2 today, then 1 daily for 4 days ZITHROMAX Z-DANILO 250 MG ORAL TABLET 794938 AZITHROMYCIN Inactive Immunizations Vaccine Administration Date Value [...] - Hematology leukocyte count, blood sent to [facility] 10^3/mm^3 10*3/mm3 4.6-10.2 Lab Report: CBC, Lipid Panel, Thyroid Stimulating Hormone (L), Free Thyr ... - Chemistry cholesterol, serum 142 mg/dL 653-793 3365/10/24 triglyceride, serum, fasting 77 mg/dL 30-200 HDL [...] Panel - Chemistry sodium, serum 137 mmol/L 475-970 5235/10/24 carbon dioxide, venous blood 24.4 mmol/L 21.0-32.0 [...] 1+ Encounters Code Encounter Date Provider Facility CPT-41027 Level 3 Est. Patient 14:41:20 CDT Tariq Marrero MD [facility] CPT-71310 Level 3 Est. Patient 11:06:09 HEAD MACHINIST Carline Best [facility] CPT-63887 Level 3 Est. Patient 15:59:13 HEAD MACHINIST Carline Best [facility] CPT-49819 Employment/ICC Exam 15:03:09 HEAD MACHINIST Sasha Tan [facility] CPT-14203 Level 3 Est. Patient 11:54:40 CDT Rian Ortega MD [facility] CPT-62123 Level 3 Est. Patient 11:17:51 CDT Carline Best [facility] CPT-45324 Level 3 Est. Patient 15:43:38 CDT Tariq Marrero MD [facility] CPT-53758 Level 3 Est. Patient 11:16:27 HEAD MACHINIST Nereyda Rodriguez [facility] CPT-33862 Level 4 Est. Patient 08:56:42 HEAD MACHINIST Sasha Tan [facility] CPT-11796 Level 3 Est. Patient 16:40:58 CDT Rian Ortega MD [facility] CPT-65450 Level 3 Est. Patient 13:55:16 HEAD MACHINIST Rian Ortega MD [facility] CPT-46399 Level 3 Est. Patient 10:42:52 CDT Corrina Bailon [facility] CPT-48092 Level 3 Est. Patient 11:18:30 CDT Aris Charlton MD [facility] Procedures Code Procedure Name Date Entry Date Standard Description CPT-39369 UA w micro - LAB USE ONLY 13:09:18 HEAD MACHINIST CPT-88677 Urine Culture - LAB USE ONLY 13:09:18 HEAD MACHINIST CPT-19309 Wet Mount - LAB USE ONLY 11:11:39 HEAD MACHINIST CPT-01446 Lipid - LAB USE ONLY 15:05:24 HEAD MACHINIST CPT-00899 PT/INR - LAB USE ONLY 12:14:07 CDT CPT-49243 HGBA1C - LAB USE ONLY 12:14:07 CDT CPT-11303 CMP - LAB USE ONLY 12:14:07 CDT CPT-53386 CBC - LAB USE ONLY 12:14:07 CDT CPT-76195 Venipuncture Draw Fee 12:14:06 CDT CPT-J0702 Celestone 6 mg (Betamethasone) 15:04:45 HEAD MACHINIST CPT-76610 Abx/Therapy Injection 15:04:45 HEAD MACHINIST CPT-J0702 Celestone 12 mg (Betamethasone) 11:45:31 HEAD MACHINIST CPT-18163 Visit 11:39:52 HEAD MACHINIST CPT-27162K Sono biophysical pro wo stress test-[place] Only 11:21: 42 HEAD MACHINIST CPT-73946 Visit 16:00:50 HEAD MACHINIST CPT-04366G Sono biophysical pro wo stress test-[place] Only 13:12: 18 HEAD MACHINIST CPT-80437 Sono biophysical pro wo stress test 11:17:21 HEAD MACHINIST 05/21 CPT-71719 Tdap 7yrs or > 15:22:51 HEAD MACHINIST CPT-32800 Immunization Single Admin 15:22:51 HEAD MACHINIST CPT-22843 Tdap 7yrs or > 15:09:13 HEAD MACHINIST CPT-85231 Visit 14:54:16 HEAD MACHINIST CPT-73692 Fluzone Quadrivalent Intramuscular Suspension 0.5 ML 16: 58:58 CDT CPT-53658 Administration single or combination vaccine inc oral 16 :58:58 CDT CPT-78095 Fluzone Thim Free 36mo and older 14:47:39 CDT CPT-62929 Visit 14:47:39 CDT CPT-27198 Sono OB limited 10:30:07 CDT CPT-71371 Visit 10:04:44 CDT CPT-26109 Sono OB comp > 14 weeks 12:50:41 CDT CPT-03204 Visit 12:06:25 CDT CPT-54994 Visit 12:43:15 CDT CPT-68956 Visit 10:06:02 CDT CPT-02567 Spec Collection and Handling Fee 10:00:31 CDT CPT-23835 Visit 10:00:30 CDT CPT-66869 Drug Screen Grisel 14:36:13 CDT
--- OUTSIDE RECORDS SUMMARY | 2018-08-28 06:08 | XMS REPORT | Clinical Summary ---
Author Author Admin, [facility] Organization [facility] Address Unknown Phone Unavailable Allergies, Adverse [...] Procedure Name Date Entry Date Standard Description CPT-49734 Drug Screen Grisel 14:36:13 CDT
--- OUTSIDE RECORDS SUMMARY | 2018-08-28 06:09 | XMS REPORT | Clinical Summary ---
Author Author Admin, E Organization [facility] Address Unknown Phone Unavailable Allergies, Adverse Reactions, [...] and recheck lab in 2-3 weeks AZITHROMYCIN 82655982867 Active Carolina Mayfield LPN Active TRIAMCINOLONE ACETONIDE 0.1 % CREA Apply to affected areas TID for up to 1 week TRIAMCINOLONE ACETONIDE 75014336596 Active Aris Charlton MD Active PNV PLUS MULTIVITAMIN 27-1 MG ORAL TABS 1 daily VIT-FE FUMARATE-FA 01939880882 Active Aris Charlton MD Active FLAGYL 500 MG TAB four tabs PO x 1 METRONIDAZOLE 83433936701 No Longer Active Aris Charlton MD Active FLAGYL 500 MG TAB four tabs PO x 1 FLAGYL 500 MG TAB 230941 METRONIDAZOLE Inactive Immunizations Vaccine Administration Date Value [...] % 11.0-15.0 platelet count 307 THOUSAND/UL 10*3/mm3 060-170 5877/05/26 mean platelet volume 8.9 fL 7.5-11.5 Blood [...] antibody, serum, IgG 2.66 Lab Report: Chlamydia/GC APTIMA/26620 - Lab chlamydia DNA probe DETECTED NOT DETECTED Lab Report: Chlamydia/GC APTIMA/04657 - Microbiology Neisseria gonorrhoeae DNA probe NOT DETECTED NOT DETECTED Lab Report: HGBA1C - Chemistry hemoglobin A1C, blood, as % of total hemoglobin 5.3 % 4.3-6.0 Lab Report: Thyroid Stimulating Hormone (L), Quant [facility] - Chemistry TSH 2.31 m[iU]/mL 0.36-3.74 Lab Report: [facility] Chemistry human chorionic gonadotropin, urine, qualitative [...] N Encounters Code Encounter Date Provider Facility CPT-34350 Level 3 Est. Patient 10:42:52 CDT Corrina [facility]on [facility] CPT-19504 Level 3 Est. Patient 11:18:30 CDT Aris Charlton MD [facility] Procedures Code Procedure Name Date Entry Date Standard Description CPT-40613 Visit 10:06:02 CDT CPT-04948 Spec Collection and Handling Fee 10:00:31 CDT CPT-04384 Visit 10:00:30 CDT CPT-39526 Drug Screen [place]isel 14:36:13 CDT
--- OUTSIDE RECORDS SUMMARY | 2018-08-28 06:09 | XMS REPORT | Clinical Summary ---
Author Author Admin, [facility] Organization [facility] Address Unknown Phone Unavailable Allergies, Adverse Reactions, [...] 131.01 Active Karen Jaramillo MD Trichomonal vulvovaginitis Medication List Medication Instructions Start Date Stop Date Generic Name NDC Status Provider Patient Instruction FLAGYL 500 MG TAB four tabs PO x 1 METRONIDAZOLE 57469750637 Active Karen Jaramillo MD Active Diagnostic Results Date Name Value Unit Range [...] RBCW/REFL I, CBC (IN ... - Hematology Blood type A leukocyte count, blood 10.2 THOUSAND/UL 10*3/mm3 3.8-10.8 erythrocyte (RBC) count 4.43 MILLION/UL 10*6/mm3 3.80-5.10 hemoglobin, blood 12.6 g/dL 11.7-15.5 hematocrit, blood 38.8 % 35.0-45.0 mean corpuscular volume, RBC 87.6 fL 80.0-100.0 mean corpuscular hemoglobin, RBC 28.5 pg 27.0-33.0 mean corpuscular hemoglobin concentration, RBC 32.5 G/DL % 32.0- 36.0 red blood cell distribution width 14.5 % 11.0-15.0 platelet count 307 THOUSAND/UL 10*3/mm3 737-298 4171/05/26 mean platelet volume 8.9 fL 7.5-11.5 Lab Report: ABO GROUP & RH TYPE, [...] BHCG - Chemistry TSH 2.31 m[iU]/mL 0.36-3.74 Procedures Code Procedure Name Date Entry Date Standard Description CPT-43173 Spec Collection and Handling Fee 10:00:31 CDT CPT-97483 Visit 10:00:30 CDT CPT-47702 Drug Screen Grisel 14:36:13 CDT
--- OUTSIDE RECORDS SUMMARY | 2018-08-28 06:09 | XMS REPORT | Clinical Summary ---
Author Author Admin, E Organization [facility] Address Unknown Phone Unavailable Allergies, Adverse Reactions, [...] risk , third trimester V23.9 Resolved Rian Oretga MD Supervision of unspecified high-risk Advanced maternal [...] 31 weeks gestation of V28.9 Inactive Deepika Kunzty LRT Encounter for unspecified screening of mother Morbid obesity 278.01 Active Rian Ortega MD Morbid obesity Obstructive sleep apnea 327.23 Active Rian Ortega MD Obstructive sleep apnea (adult) (pediatric) Cigarette smoker 305.1 Active Rian Ortega MD Tobacco use disorder Cnc Operator well woman exam V72.31 Active Sasha Espitia APRN Routine gynecological examination Bariatric operative procedure V45.86 Active Mariely Faux RMRy Bariatric surgery status Physical examination V70.0 [...] tablet by mouth twice daily CIPROFLOXACIN HCL 80219529049 Active Tariq Marrero MD Active AZO TABS TABS 2 tabs qd PHENAZOPYRIDINE HCL TABS 22587601623 No Longer Active Tariq Marrero MD Active CIPROFLOXACIN HCL 250 MG ORAL TABS 1 twice a day for bladder infection 07/24 CIPROFLOXACIN HCL 50081814978 No Longer Active Tariq Marrero MD Active SM VITAMIN B12 TR 1000 MCG ORAL CR-TABS 1 tab po daily CYANOCOBALAMIN 84336458986 No Longer Active Nereyda Rodriguez APRN Active CARAFATE 1 GM TAB 1 tab po as needed up to 4 times per day SUCRALFATE 57163337305 No Longer Active Nereyda Rodriguez APRN Active PNV PLUS MULTIVITAMIN 27-1 MG ORAL TABS 1 daily VIT-FE FUMARATE-FA 88365219176 No Longer Active Sasha Espitia APRN Active CHANTIX STARTING MONTH DANILO 0.5 MG X 11 & 1 MG X 42 TABS take as directed 2015 VARENICLINE TARTRATE 06963158378 No Longer Active Sasha Espitia APRN Active CHANTIX 1 MG TABS 1 twice a day to help quit smoking VARENICLINE TARTRATE 67131181540 No Longer Active Sasha Espitia APRN Active OMEPRAZOLE 20 MG CPDR 1 tablet by mouth daily OMEPRAZOLE 05708033453 Active Sasah Espitia APRN Active FLINSTONES GUMMIES OMEGA-3 DHA ORAL CHEW 2 gummies per day PEDIATRIC MULTIPLE VIT-C-FA 71933378208 Active Sasha Espitia APRN Active CLINDAMYCIN HCL 150 MG CAPS 1 four times a day for 1 week CLINDAMYCIN HCL 24539882561 No Longer Active Karen Jaramillo MD Active TRIAMCINOLONE ACETONIDE 0.1 % CREA Apply to affected areas TID for up to 1 week TRIAMCINOLONE ACETONIDE 92240539758 No Longer Active Rian Ortega MD Active ZITHROMAX 1 GM ORAL PACK Take 1 time and recheck lab in 2-3 weeks AZITHROMYCIN 71820071878 No Longer Active Rian Ortega MD Active FLAGYL 500 MG TAB four tabs PO x 1 METRONIDAZOLE 56990772465 No Longer Active Aris Charlton MD Active FLAGYL 500 MG TAB four tabs PO x 1 FLAGYL 500 MG TAB 956138 METRONIDAZOLE Inactive ZITHROMAX 1 GM ORAL PACK Take 1 time and recheck lab in 2-3 weeks ZITHROMAX 1 GM ORAL PACK 090936 AZITHROMYCIN Inactive TRIAMCINOLONE ACETONIDE 0.1 % CREA Apply to affected areas TID for up to 1 week TRIAMCINOLONE ACETONIDE 0.1 % CREA 3185751 TRIAMCINOLONE ACETONIDE Inactive CLINDAMYCIN HCL 150 MG CAPS 1 four times a day for 1 week CLINDAMYCIN HCL 150 MG CAPS 644415 CLINDAMYCIN HCL Inactive CHANTIX 1 MG TABS [...] per day 06/27 CARAFATE 1 GM TAB 840335 SUCRALFATE Inactive SM VITAMIN B12 TR 1000 [...] HGBA1C - Chemistry sodium, serum 142 mmol/L 700-999 8327 carbon dioxide, venous blood 32.8 mmol/L 21.0-32.0 [...] Panel - Chemistry cholesterol, serum 165 mg/dL 512-536 7466 triglyceride, serum, fasting 124 mg/dL 30-200 HDL [...] 30-100 Encounters Code Encounter Date Provider Facility CPT-80751 Level 3 Est. Patient 15:43:38 CDT Tariq Marrero MD [facility] CPT-17578 Level 3 Est. Patient 11:16:27 POSTAL SERVICE CLERK Nereyda Rodriguez [facility] CPT-47657 Level 4 Est. Patient 08:56:42 POSTAL SERVICE CLERK Sasha Espitia [facility] CPT-80482 Level 3 Est. Patient 16:40:58 CDT Rian Ortega MD [facility] CPT-18299 Level 3 Est. Patient 13:55:16 POSTAL SERVICE CLERK Rian Ortega MD [facility] CPT-29176 Level 3 Est. Patient 10:42:52 CDT Corrina Bailon APRN [facility] CPT-20466 Level 3 Est. Patient 11:18:30 CDT Aris Charlton MD [facility] Procedures Code Procedure Name Date Entry Date Standard Description CPT-28584 UA w micro - LAB USE ONLY 13:09:18 POSTAL SERVICE CLERK CPT-57739 Urine Culture - LAB USE ONLY 13:09:18 POSTAL SERVICE CLERK CPT-40718 Wet Mount - LAB USE ONLY 11:11:39 POSTAL SERVICE CLERK CPT-90742 Lipid - LAB USE ONLY 15:05:24 POSTAL SERVICE CLERK CPT-83318 PT/INR - LAB USE ONLY 12:14:07 CDT CPT-36908 HGBA1C - LAB USE ONLY 12:14:07 CDT CPT-22311 CMP - LAB USE ONLY 12:14:07 CDT CPT-45125 CBC - LAB USE ONLY 12:14:07 CDT CPT-38572 Venipuncture Draw Fee 12:14:06 CDT CPT-J0702 Celestone 6 mg (Betamethasone) 15:04:45 POSTAL SERVICE CLERK CPT-80915 Abx/Therapy Injection 15:04:45 POSTAL SERVICE CLERK CPT-J0702 Celestone 12 mg (Betamethasone) 11:45:31 POSTAL SERVICE CLERK CPT-23492 Visit 11:39:52 POSTAL SERVICE CLERK CPT-16917E Sono biophysical pro wo stress test-[place] Only 11:21: 42 POSTAL SERVICE CLERK CPT-79727 Visit 16:00:50 POSTAL SERVICE CLERK CPT-94798E Sono biophysical pro wo stress test-[place] Only 13:12: 18 POSTAL SERVICE CLERK CPT-04646 Sono biophysical pro wo stress test 11:17:21 POSTAL SERVICE CLERK 05/21 CPT-23500 Tdap 7yrs or > 15:22:51 POSTAL SERVICE CLERK CPT-38353 Immunization Single Admin 15:22:51 POSTAL SERVICE CLERK CPT-09795 Tdap 7yrs or > 15:09:13 POSTAL SERVICE CLERK CPT-27018 Visit 14:54:16 POSTAL SERVICE CLERK CPT-31220 Fluzone Quadrivalent Intramuscular Suspension 0.5 ML 16: 58:58 CDT CPT-18924 Administration single or combination vaccine inc oral 16 :58:58 CDT CPT-20099 Fluzone Thim Free 36mo and older 14:47:39 CDT CPT-69980 Visit 14:47:39 CDT CPT-43237 Sono OB limited 10:30:07 CDT CPT-52171 Visit 10:04:44 CDT CPT-21450 Sono OB comp > 14 weeks 12:50:41 CDT CPT-36587 Visit 12:06:25 CDT CPT-29636 Visit 12:43:15 CDT CPT-77285 Visit 10:06:02 CDT CPT-00858 Spec Collection and Handling Fee 10:00:31 CDT CPT-47343 Visit 10:00:30 CDT CPT-36562 Drug Screen [place] 14:36:13 CDT
--- OUTSIDE RECORDS SUMMARY | 2018-08-28 06:10 | XMS REPORT | Clinical Summary ---
Author Author Admin, [facility] Organization [facility] Address Unknown Phone Unavailable Allergies, Adverse Reactions, [...] Procedure Name Date Entry Date Standard Description CPT-10980 Drug Screen [place]isel 14:36:13 CDT
--- OUTSIDE RECORDS SUMMARY | 2018-08-28 06:10 | XMS REPORT | Clinical Summary ---
Author Author Admin, [facility] Organization [facility] Address Unknown Phone Unavailable Allergies, Adverse [...] TAB four tabs PO x 1 METRONIDAZOLE 16058637010 Active Karen Jaramillo MD Active Diagnostic Results [...] % 11.0-15.0 platelet count 307 THOUSAND/UL 10*3/mm3 132-090 2685/05/26 mean platelet volume 8.9 fL 7.5-11.5 Lab [...] Procedure Name Date Entry Date Standard Description CPT-80152 Spec Collection and Handling Fee 10:00:31 CDT CPT-59617 Visit 10:00:30 CDT CPT-40044 Drug Screen Grisel 14:36:13 CDT
--- OUTSIDE RECORDS SUMMARY | 2018-08-28 06:10 | XMS REPORT | Clinical Summary ---
Author Author Admin, [facility] Organization [facility] Address Unknown Phone Unavailable Allergies, Adverse Reactions, Alerts Allergy Name Reaction Description Start Date Severity Status Provider No Known Allergies Kerrie Agustin LPN Conditions or Problems Problem Name Problem Code Onset Date Status Entry Date Provider Comment Standard Description Annotate Health examination of defined subpopulations V70.5 Resolved 2014 Karen Jaramilol MD Health examination of defined subpopulations Supervision [...] Active Rian Ortega MD Tobacco use disorder Personnel Associate well woman exam V72.31 Active Sasha Espitia [...] day for bladder infection 07/24 CIPROFLOXACIN HCL 05132009165 Active Nereyda Rodriguez APRN Active AZO TABS TABS 2 tabs qd PHENAZOPYRIDINE HCL TABS 91106547759 Active Nereyda Rodriguez APRN Active SM VITAMIN B12 TR 1000 MCG ORAL CR-TABS 1 tab po daily CYANOCOBALAMIN 75483402679 No Longer Active Nereyda Rodriguez APRN Active CARAFATE 1 GM TAB 1 tab po as needed up to 4 times per day SUCRALFATE 85584590775 No Longer Active Nereyda Rodriguez APRN Active PNV PLUS MULTIVITAMIN 27-1 MG ORAL TABS 1 daily VIT-FE FUMARATE-FA 92199352482 No Longer Active Sasha Espitia APRN Active CHANTIX STARTING MONTH DANILO 0.5 MG X 11 & 1 MG X 42 TABS take as directed 2015 VARENICLINE TARTRATE 49095419986 No Longer Active Sasha Espitia APRN Active CHANTIX 1 MG TABS 1 twice a day to help quit smoking VARENICLINE TARTRATE 08159236719 No Longer Active Sasha Espitia APRN Active OMEPRAZOLE 20 MG CPDR 1 tablet by mouth daily OMEPRAZOLE 40316869128 Active Sasha Espitia APRN Active FLINSTONES GUMMIES OMEGA-3 DHA ORAL CHEW 2 gummies per day PEDIATRIC MULTIPLE VIT-C-FA 49897146464 Active Sasha Espitia APRN Active CLINDAMYCIN HCL 150 MG CAPS 1 four times a day for 1 week CLINDAMYCIN HCL 59058529678 No Longer Active Karen Jaramillo MD Active TRIAMCINOLONE ACETONIDE 0.1 % CREA Apply to affected areas TID for up to 1 week TRIAMCINOLONE ACETONIDE 22322688949 No Longer Active Rian Ortega MD Active ZITHROMAX 1 GM ORAL PACK Take 1 time and recheck lab in 2-3 weeks AZITHROMYCIN 84250038596 No Longer Active Rian Ortega MD Active FLAGYL 500 MG TAB four tabs PO x 1 METRONIDAZOLE 58938405688 No Longer Active Aris Charlton MD Active FLAGYL 500 MG TAB four tabs PO x 1 FLAGYL 500 MG TAB 386112 METRONIDAZOLE Inactive ZITHROMAX 1 GM ORAL PACK Take 1 time and recheck lab in 2-3 weeks ZITHROMAX 1 GM ORAL PACK 397854 AZITHROMYCIN Inactive TRIAMCINOLONE ACETONIDE 0.1 % CREA Apply to affected areas TID for up to 1 week TRIAMCINOLONE ACETONIDE 0.1 % CREA 6843960 TRIAMCINOLONE ACETONIDE Inactive CLINDAMYCIN HCL 150 MG CAPS 1 four times a day for 1 week CLINDAMYCIN HCL 150 MG CAPS 079377 CLINDAMYCIN HCL Inactive CHANTIX 1 MG TABS [...] per day 06/27 CARAFATE 1 GM TAB 824906 SUCRALFATE Inactive SM VITAMIN B12 TR 1000 [...] HGBA1C - Chemistry sodium, serum 142 mmol/L [phone] carbon dioxide, venous blood 32.8 mmol/L 21.0-32.0 [...] Panel - Chemistry cholesterol, serum 165 mg/dL [phone] triglyceride, serum, fasting 124 mg/dL 30-200 HDL [...] 30-100 Encounters Code Encounter Date Provider Facility CPT-54463 Level 3 Est. Patient 11:16:27 INSIDE FINISHER Nereyda Rodriguez [facility] [place] CPT-11779 Level 4 Est. Patient 08:56:42 INSIDE FINISHER Sasha Espitia [facility] [place] [facility] [place] CPT-87797 Level 3 Est. Patient 16:40:58 CDT Rian Ortega MD [facility] CPT-32871 Level 3 Est. Patient 13:55:16 INSIDE FINISHER Rian Ortega MD [facility] CPT-29152 Level 3 Est. Patient 10:42:52 CDT Corrina Angelesvalentine [facility] CPT-09834 Level 3 Est. Patient 11:18:30 CDT Aris Charlton MD [facility] Procedures Code Procedure Name Date Entry Date Standard Description CPT-40967 UA w micro - LAB USE ONLY 13:09:18 INSIDE FINISHER CPT-35695 Urine Culture - LAB USE ONLY 13:09:18 INSIDE FINISHER CPT-06857 Wet Mount - LAB USE ONLY 11:11:39 INSIDE FINISHER CPT-58674 Lipid - LAB USE ONLY 15:05:24 INSIDE FINISHER CPT-54207 PT/INR - LAB USE ONLY 12:14:07 CDT CPT-06446 HGBA1C - LAB USE ONLY 12:14:07 CDT CPT-80197 CMP - LAB USE ONLY 12:14:07 CDT CPT-82428 CBC - LAB USE ONLY 12:14:07 CDT CPT-50677 Venipuncture Draw Fee 12:14:06 CDT CPT-J0702 Celestone 6 mg (Betamethasone) 15:04:45 INSIDE FINISHER CPT-46108 Abx/Therapy Injection 15:04:45 INSIDE FINISHER CPT-J0702 Celestone 12 mg (Betamethasone) 11:45:31 INSIDE FINISHER CPT-80628 Visit 11:39:52 INSIDE FINISHER CPT-91125J Sono biophysical pro wo stress test-[facility] 11:21: 42 INSIDE FINISHER CPT-27210 Visit 16:00:50 INSIDE FINISHER CPT-06859N Sono biophysical pro wo stress test-[facility] 13:12: 18 INSIDE FINISHER CPT-94401 Sono biophysical pro wo stress test 11:17:21 INSIDE FINISHER 05/21 CPT-93383 Tdap 7yrs or > 15:22:51 INSIDE FINISHER CPT-25495 Immunization Single Admin 15:22:51 INSIDE FINISHER CPT-40431 Tdap 7yrs or > 15:09:13 INSIDE FINISHER CPT-73667 Visit 14:54:16 INSIDE FINISHER CPT-00526 Fluzone Quadrivalent Intramuscular Suspension 0.5 ML 16: 58:58 CDT CPT-96284 Administration single or combination vaccine inc oral 16 :58:58 CDT CPT-97917 Fluzone Thim Free 36mo and older 14:47:39 CDT CPT-49228 Visit 14:47:39 CDT CPT-79224 Sono OB limited 10:30:07 CDT CPT-57967 Visit 10:04:44 CDT CPT-92645 Sono OB comp > 14 weeks 12:50:41 CDT CPT-01292 Visit 12:06:25 CDT CPT-81603 Visit 12:43:15 CDT CPT-85493 Visit 10:06:02 CDT CPT-58753 Spec Collection and Handling Fee 10:00:31 CDT CPT-06387 Visit 10:00:30 CDT CPT-11654 Drug Screen Grisel 14:36:13 CDT
--- OUTSIDE RECORDS SUMMARY | 2018-08-28 06:10 | XMS REPORT | Clinical Summary ---
Author Author Admin, [facility] Organization [facility] Address Unknown Phone Unavailable Allergies, Adverse Reactions, [...] Active Rian Ortega MD Tobacco use disorder Health examination of defined subpopulations ICD-V70.5 Inactive [...] Generic Name NDC Status Provider Patient Instruction CHANTIX 1 MG TABS 1 twice a day to help quit smoking VARENICLINE TARTRATE 63416324903 Active Rian Ortega MD Active CHANTIX STARTING MONTH DANILO 0.5 MG X 11 & 1 MG X 42 TABS take as directed 2015 VARENICLINE TARTRATE 65375563340 Active Rian Ortega MD Active CLINDAMYCIN HCL 150 MG CAPS 1 four times a day for 1 week CLINDAMYCIN HCL 43455609412 No Longer Active Karen Jaramillo MD Active TRIAMCINOLONE ACETONIDE 0.1 % CREA Apply to affected areas TID for up to 1 week TRIAMCINOLONE ACETONIDE 23528130892 No Longer Active Rian Ortega MD Active ZITHROMAX 1 GM ORAL PACK Take 1 time and recheck lab in 2-3 weeks AZITHROMYCIN 68898137248 No Longer Active Rian Ortega MD Active PNV PLUS MULTIVITAMIN 27-1 MG ORAL TABS 1 daily VIT-FE FUMARATE-FA 93733559458 Active Aris Charlton MD Active FLAGYL 500 MG TAB four tabs PO x 1 METRONIDAZOLE 35130967532 No Longer Active Aris Charlton MD Active FLAGYL 500 MG TAB four tabs PO x 1 FLAGYL 500 MG TAB 149432 METRONIDAZOLE Inactive ZITHROMAX 1 GM ORAL PACK Take 1 time and recheck lab in 2-3 weeks ZITHROMAX 1 GM ORAL PACK 628411 AZITHROMYCIN Inactive TRIAMCINOLONE ACETONIDE 0.1 % CREA Apply to affected areas TID for up to 1 week TRIAMCINOLONE ACETONIDE 0.1 % CREA 5441082 TRIAMCINOLONE ACETONIDE Inactive CLINDAMYCIN HCL 150 MG CAPS 1 four times a day for 1 week CLINDAMYCIN HCL 150 MG CAPS 855392 CLINDAMYCIN HCL Inactive Immunizations Vaccine Administration Date Value [...] Weight Measured blood pressure, diastolic - 8462-4 51 mm[Hg] BP calvo blood pressure, systolic - 8480-6 131 mm[Hg] BP sys pulse rate E&M - 8867-4 75 /min Heart rate temperature E&M 98.8 [degF] Body temperature weight E&M - 3141-9 260 [lb_av] Weight Measured blood pressure, diastolic - 8462-4 69 mm[Hg] BP calvo blood pressure, systolic - 8480-6 114 mm[Hg] BP sys pulse rate E&M - 8867-4 78 /min Heart rate temperature E&M 98.4 [degF] Body temperature weight E&M - 3141-9 250 [lb_av] Weight Measured blood pressure, diastolic - 8462-4 83 mm[Hg] BP calvo blood pressure, systolic - 8480-6 128 mm[Hg] BP sys pulse rate E&M - 8867-4 79 /min Heart rate temperature E&M 98.2 [degF] Body temperature weight E&M - 3141-9 248 [lb_av] Weight Measured blood pressure, diastolic - 8462-4 79 mm[Hg] BP calvo blood pressure, systolic - 8480-6 119 mm[Hg] BP sys height E&M - 8302-2 62 [in_us] Bdy height pulse rate E&M - 8867-4 86 /min Heart rate temperature E&M 96.2 [degF] Body temperature weight E&M - 3141-9 248 [lb_av] Weight Measured blood pressure, diastolic - 8462-4 69 mm[Hg] [...] E&M - 3141-9 259 [lb_av] Weight Measured Diagnostic Results Date Name Value Unit Range Description Lab Report: ANTIBODY SCREEN, RBCW/REFL I - Blood bank antibody screen, serum NO ANTIBODIES DETECTED Lab Report: CBC W/DIFF, Comp. Metabolic Panel, Thyroid Stimulating Hormo ... - Chemistry sodium, serum 137 mmol/L 922-638 0016/08/28 potassium, serum 4.3 mmol/L 3.5-5.2 chloride, serum 99 mmol/L 98-107 carbon dioxide, venous blood 27.0 mmol/L 21.0-32.0 blood glucose 78 mg/dL 65-110 urea nitrogen, blood 5 mg/dL 7-18 creatinine, serum 0.70 mg/dL 0.60-1.30 alanine aminotransferase (SGPT), serum 19 U/L 12-78 aspartate aminotransferase (SGOT), serum 9 U/L 15-37 calcium, serum 8.7 mg/dL 8.5-10.1 bilirubin, serum, total 0.40 mg/dL 0.00-1.00 TSH 1.51 m[iU]/mL 0.36-3.74 thyroxine, serum, free 1.03 ng/dL 0.76-1.46 Lab Report: CBC W/DIFF, Comp. Metabolic Panel, Thyroid Stimulating Hormo ... - Hematology leukocyte count, blood 13.1 10^3/MM^3 10*3/mm3 4.6-10.2 neutrophils as percent of blood leukocytes 74.9 % 42.2-75.2 monocytes as percent of blood leukocytes 3.8 % 1.7-9.3 lymphocytes as percent of blood leukocytes 19.7 % 20.5-51.1 erythrocyte (RBC) count 3.94 10^6/MM^3 10*6/mm3 4.04-5.48 hemoglobin, blood 12.0 g/dL 12.0-16.0 hematocrit, blood 35.2 % 36.0-46.0 mean corpuscular volume, RBC 89 fL 80-97 mean corpuscular hemoglobin, RBC 30.5 pg 27.0-31.2 mean corpuscular hemoglobin concentration, RBC 34.1 G/DL % 31.8- 35.4 red blood cell distribution width 14.7 % 11.6-14.8 platelet count 325 10^3/MM^3 10*3/mm3 142-424 Lab Report: CBC, Thyroid [...] count 302 10^3/MM^3 10*3/mm3 142-424 Lab Report: Chlamydia/GC APTIMA/43425 - Lab chlamydia DNA probe NOT DETECTED NOT DETECTED chlamydia DNA probe NOT DETECTED NOT DETECTED chlamydia DNA probe DETECTED NOT DETECTED Lab Report: Chlamydia/GC APTIMA/28959 - Microbiology Neisseria gonorrhoeae DNA probe NOT DETECTED NOT DETECTED Neisseria gonorrhoeae DNA probe NOT DETECTED NOT DETECTED Neisseria gonorrhoeae DNA probe NOT DETECTED NOT DETECTED Lab Report: Chlamydia/GC APTIMA/67382, HEPATITIS B S AG W/, HIV-1/2 Agn/ ... - Chemistry hepatitis B surface antigen NON-REACTIVE NON-REACTIVE Lab Report: Chlamydia/GC APTIMA/19953, HEPATITIS B S AG W/, HIV-1/2 Agn/ ... - Lab chlamydia DNA probe NOT DETECTED NOT DETECTED Lab Report: Chlamydia/GC APTIMA/77507, HEPATITIS B S AG W/, HIV-1/2 Agn/ ... - Microbiology Neisseria gonorrhoeae DNA probe NOT DETECTED NOT DETECTED Lab Report: Chlamydia/GC APTIMA/80472, HEPATITIS B S AG W/, HIV-1/2 Agn/ ... - Serology rapid plasma reagin antibody titer NON-REACTIVE NON-REACTIVE Lab Report: UADIP W/MICRO, AUTO - Chemistry [...] 1.020 1.000-1.030 pH, urine, semiquantitative 7.0 5.0-8.5 Office Visit: Unknown - Urinalysis protein, urine, semiquantitative (dipstick) 1+ glucose, urine, semiquantitative N nitrite, urine, semiquantitative N Office Visit: follow up ob - Urinalysis protein, urine, semiquantitative (dipstick) Tr glucose, urine, semiquantitative N nitrite, urine, semiquantitative N protein, urine, semiquantitative (dipstick) Tr glucose, urine, semiquantitative N nitrite, urine, semiquantitative N Office Visit: OB Visit - Chemistry protein, total urine random N mg/dL protein, total urine random N mg/dL protein, total urine random Tr mg/dL Office Visit: OB Visit - Urinalysis glucose, urine, semiquantitative N nitrite, urine, semiquantitative N glucose, urine, semiquantitative N nitrite, urine, semiquantitative N glucose, urine, semiquantitative N nitrite, urine, semiquantitative N Encounters Code Encounter Date Provider Facility CPT-59652 Level 3 Est. Patient 16:40:58 CDT Rian Ortega MD [facility] CPT-10764 Level 3 Est. Patient 13:55:16 PLASTER MAKER Rian Ortega MD [facility] CPT-35196 Level 3 Est. Patient 10:42:52 CDT Corrina Bailon APRN [facility] CPT-99167 Level 3 Est. Patient 11:18:30 CDT Aris Charlton MD [facility] Procedures Code Procedure Name Date Entry Date Standard Description CPT-J0702 Celestone 6 mg (Betamethasone) 15:04:45 PLASTER MAKER CPT-21842 Abx/Therapy Injection 15:04:45 PLASTER MAKER CPT-J0702 Celestone 12 mg (Betamethasone) 11:45:31 PLASTER MAKER CPT-99064 Visit 11:39:52 PLASTER MAKER CPT-80648B Sono biophysical pro wo stress test-[place] Only 11:21: 42 PLASTER MAKER CPT-76842 Visit 16:00:50 PLASTER MAKER CPT-66108U Sono biophysical pro wo stress test-[place] Only 13:12: 18 PLASTER MAKER CPT-80745 Sono biophysical pro wo stress test 11:17:21 PLASTER MAKER 05/21 CPT-06006 Tdap 7yrs or > 15:22:51 PLASTER MAKER CPT-03623 Immunization Single Admin 15:22:51 PLASTER MAKER CPT-79327 Tdap 7yrs or > 15:09:13 PLASTER MAKER CPT-39192 Visit 14:54:16 PLASTER MAKER CPT-10562 Fluzone Quadrivalent Intramuscular Suspension 0.5 ML 16: 58:58 CDT CPT-66662 Administration single or combination vaccine inc oral 16 :58:58 CDT CPT-49636 Fluzone Thim Free 36mo and older 14:47:39 CDT CPT-33921 Visit 14:47:39 CDT CPT-51975 Sono OB limited 10:30:07 CDT CPT-81599 Visit 10:04:44 CDT CPT-93796 Sono OB comp > 14 weeks 12:50:41 CDT CPT-83620 Visit 12:06:25 CDT CPT-06204 Visit 12:43:15 CDT CPT-32433 Visit 10:06:02 CDT CPT-99287 Spec Collection and Handling Fee 10:00:31 CDT CPT-26738 Visit 10:00:30 CDT CPT-95189 Drug Screen Grisel 14:36:13 CDT
--- OUTSIDE RECORDS SUMMARY | 2018-08-28 06:11 | XMS REPORT | Clinical Summary ---
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 Active Sasha Tan [...] Active Carline Best APRN Cough Myalgias 729.1 Active Tariq Marrero MD Myalgia and myositis, unspecified [...] weeks gestation of ICD-V28.9 Inactive Deepika RITCHIE Morbid obesity ICD-278.01 Inactive Rian Ortega MD Dysuria ICD-788.1 Inactive Rian Ortega MD 03/29 Bronchitis ICD-490 Inactive Rian Ortega MD 2016 Medication List Medication Instructions Start Date Stop Date Generic Name NDC Status Provider Patient Instruction ZITHROMAX Z-DANILO 250 MG ORAL TABLET 2 today, then 1 daily for 4 days AZITHROMYCIN 56450967140 No Longer Active Mahsabelkys Riveraida Active AZITHROMYCIN 250 MG ORAL TABLET 2 po qd x 1 day, then 1 po qd x 4 days 07/27 AZITHROMYCIN 78310561943 No Longer Active Carline Best APRN Active GUAIFENESIN ER 600 MG ORAL TABLET EXTENDED RELEASE 12 HOUR 1 twice a day as needed for congestion GUAIFENESIN 18821964015 No Longer Active Sasha Tan APRN Active CYCLOBENZAPRINE HCL 10 MG ORAL TABLET 1 three times a day as needed for muscle spasm CYCLOBENZAPRINE HCL 94459969634 No Longer Active Sasha Tan APRN Active SYMBICORT 160-4.5 MCG/ACT INHALATION AEROSOL 2 puff BID for 10 days BUDESONIDE-FORMOTEROL FUMARATE 82845063783 No Longer Active Rian Ortega MD Active AZITHROMYCIN 250 MG ORAL TABLET 2 po qd x 1 day, then 1 po qd x 4 days 02/15 AZITHROMYCIN 08661222662 No Longer Active Carline Best APRN Active CIPRO 500 MG ORAL TABLET 1 tablet by mouth twice daily CIPROFLOXACIN HCL 17076795626 No Longer Active Tariq Marrero MD Active AZO TABS TABLET 2 tabs qd PHENAZOPYRIDINE HCL TABS 71976382751 No Longer Active Tariq Marrero MD Active CIPROFLOXACIN HCL 250 MG ORAL TABLET 1 twice a day for bladder infection 2016 CIPROFLOXACIN HCL 90530563274 No Longer Active Tariq Marrero MD Active SM VITAMIN B12 TR 1000 MCG ORAL TABLET EXTENDED RELEASE 1 tab po daily 04/24 CYANOCOBALAMIN 99651038144 No Longer Active Nereyda Rodriguez APRN Active CARAFATE 1 GM ORAL TABLET 1 tab po as needed up to 4 times per day SUCRALFATE 55594481874 No Longer Active Nereyda Rodriguez APRN Active PNV PLUS MULTIVITAMIN 27-1 MG ORAL TABLET 1 daily 04/24 VIT-FE FUMARATE-FA 54459607889 No Longer Active Sasha Tan APRN Active CHANTIX STARTING MONTH DANILO 0.5 MG X 11 & 1 MG X 42 ORAL TABLET take as directed VARENICLINE TARTRATE 47868700604 No Longer Active Sasha Tan APRN Active CHANTIX 1 MG ORAL TABLET 1 twice a day to help quit smoking 04/24 VARENICLINE TARTRATE 63637446478 No Longer Active Sasha Tan APRN Active OMEPRAZOLE 20 MG ORAL CAPSULE DELAYED RELEASE 1 tablet by mouth daily OMEPRAZOLE 08810778356 Active Sasha Tan APRN Active FLINSTONES GUMMIES OMEGA-3 DHA ORAL TABLET CHEWABLE 2 gummies per day PEDIATRIC MULTIPLE VIT-C-FA 86033368352 Active Sasha Tan APRN Active CLINDAMYCIN HCL 150 MG ORAL CAPSULE 1 four times a day for 1 week CLINDAMYCIN HCL 49587326479 No Longer Active Karen Jaramillo MD Active TRIAMCINOLONE ACETONIDE 0.1 % EXTERNAL CREAM Apply to affected areas TID for up to 1 week TRIAMCINOLONE ACETONIDE 10725172524 No Longer Active Rian Ortega MD Active ZITHROMAX 1 GM ORAL PACKET Take 1 time and recheck lab in 2-3 weeks AZITHROMYCIN 17166729514 No Longer Active Rian Ortega MD Active FLAGYL 500 MG ORAL TABLET four tabs PO x 1 METRONIDAZOLE 50725597865 No Longer Active Aris Charlton MD Active FLAGYL 500 MG ORAL TABLET four tabs PO x 1 FLAGYL 500 MG ORAL TABLET 499861 METRONIDAZOLE Inactive ZITHROMAX 1 GM ORAL PACKET Take 1 time and recheck lab in 2-3 weeks ZITHROMAX 1 GM ORAL PACKET 500397 AZITHROMYCIN Inactive TRIAMCINOLONE ACETONIDE 0.1 % EXTERNAL CREAM Apply to affected areas TID for up to 1 week TRIAMCINOLONE ACETONIDE 0.1 % EXTERNAL CREAM 1065019 TRIAMCINOLONE ACETONIDE Inactive CLINDAMYCIN HCL 150 MG ORAL CAPSULE 1 four times a day for 1 week CLINDAMYCIN HCL 150 MG ORAL CAPSULE 153937 CLINDAMYCIN HCL Inactive CHANTIX 1 MG ORAL [...] per day CARAFATE 1 GM ORAL TABLET 342300 SUCRALFATE Inactive SM VITAMIN B12 TR 1000 MCG ORAL TABLET EXTENDED RELEASE 1 tab po daily 04/24 SM VITAMIN B12 TR 1000 MCG ORAL TABLET EXTENDED RELEASE CYANOCOBALAMIN Inactive CIPROFLOXACIN HCL 250 MG ORAL TABLET 1 twice a day for bladder infection 2016 CIPROFLOXACIN HCL 250 MG ORAL TABLET 665133 CIPROFLOXACIN HCL Inactive AZO TABS TABLET 2 tabs qd AZO TABS TABLET PHENAZOPYRIDINE HCL TABS Inactive SYMBICORT 160-4.5 MCG/ACT INHALATION AEROSOL 2 puff BID for 10 days SYMBICORT 160-4.5 MCG/ACT INHALATION AEROSOL BUDESONIDE- FORMOTEROL FUMARATE Inactive CYCLOBENZAPRINE HCL 10 MG ORAL TABLET 1 three times a day as needed for muscle spasm CYCLOBENZAPRINE HCL 10 MG ORAL TABLET 604984 CYCLOBENZAPRINE HCL Inactive GUAIFENESIN ER 600 MG ORAL TABLET EXTENDED RELEASE 12 HOUR 1 twice a day as needed for congestion GUAIFENESIN ER 600 MG ORAL TABLET EXTENDED RELEASE 12 HOUR GUAIFENESIN Inactive CIPRO 500 MG ORAL TABLET 1 tablet by mouth twice daily CIPRO 500 MG ORAL TABLET 555775 CIPROFLOXACIN HCL Inactive AZITHROMYCIN 250 MG ORAL TABLET 2 po qd x 1 day, then 1 po qd x 4 days 02/15 AZITHROMYCIN 250 MG ORAL TABLET 652268 AZITHROMYCIN Inactive AZITHROMYCIN 250 MG ORAL TABLET 2 po qd x 1 day, then 1 po qd x 4 days 07/27 AZITHROMYCIN 250 MG ORAL TABLET 372902 AZITHROMYCIN Inactive ZITHROMAX Z-DANILO 250 MG ORAL TABLET 2 today, then 1 daily for 4 days ZITHROMAX Z-DANILO 250 MG ORAL TABLET 718927 AZITHROMYCIN Inactive Immunizations Vaccine Administration Date Value Standard Description hepatitis B vaccine series yes hepatitis B vaccine, unspecified formulation Vital Signs Date Name Value Unit Range Description blood pressure, diastolic 76 mm[Hg] BP calvo [...] - Hematology leukocyte count, [facility] 10^3/mm^3 10*3/mm3 4.6-10.2 Lab Report: CBC, Lipid Panel, Thyroid Stimulating Hormone (L), Free Thyr ... - Chemistry cholesterol, serum 142 mg/dL 640-256 7862/10/24 triglyceride, serum, fasting 77 mg/dL 30-200 HDL [...] Panel - Chemistry sodium, serum 137 mmol/L 224-792 3267/10/24 carbon dioxide, venous blood 24.4 mmol/L 21.0-32.0 [...] - Toxicology rapid flu test Negative Negative;Positive Encounters Code Encounter Date Provider Facility CPT-91385 Level 3 Est. Patient 14:41:20 CDT Tariq Marrero MD [facility] CPT-28190 Level 3 Est. Patient 11:06:09 CASK MAKER Carline Best [facility] CPT-09435 Level 3 Est. Patient 15:59:13 CASK MAKER Carline Best [facility] CPT-00153 Employment/ICC Exam 15:03:09 CASK MAKER Sasha Tan [facility] CPT-71936 Level 3 Est. Patient 11:54:40 CDT Rian Ortega MD [facility] CPT-12607 Level 3 Est. Patient 11:17:51 CDT Carline Best [facility] CPT-64332 Level 3 Est. Patient 15:43:38 CDT Tariq Marrero MD [facility] CPT-86618 Level 3 Est. Patient 11:16:27 CASK MAKER Nereyda Rodriguez [facility] CPT-98628 Level 4 Est. Patient 08:56:42 CASK MAKER Sasha Tan [facility] CPT-03950 Level 3 Est. Patient 16:40:58 CDT Rian Ortega MD [facility] CPT-44898 Level 3 Est. Patient 13:55:16 CASK MAKER Rian Ortega MD [facility] CPT-98267 Level 3 Est. Patient 10:42:52 [facility] Level 3 Est. Patient 11:18:30 CDT Aris Charlton MD [facility] Procedures Code Procedure Name Date Entry Date Standard Description CPT-08303 UA w micro - LAB USE ONLY 13:09:18 CASK MAKER CPT-15819 Urine Culture - LAB USE ONLY 13:09:18 CASK MAKER CPT-66385 Wet Mount - LAB USE ONLY 11:11:39 CASK MAKER CPT-31163 Lipid - LAB USE ONLY 15:05:24 CASK MAKER CPT-87368 PT/INR - LAB USE ONLY 12:14:07 CDT CPT-17371 HGBA1C - LAB USE ONLY 12:14:07 CDT CPT-95002 CMP - LAB USE ONLY 12:14:07 CDT CPT-06911 CBC - LAB USE ONLY 12:14:07 CDT CPT-91570 Venipuncture Draw Fee 12:14:06 CDT CPT-J0702 Celestone 6 mg (Betamethasone) 15:04:45 CASK MAKER CPT-00451 Abx/Therapy Injection 15:04:45 CASK MAKER CPT-J0702 Celestone 12 mg (Betamethasone) 11:45:31 CASK MAKER CPT-98924 Visit 11:39:52 CASK MAKER CPT-74635M Sono biophysical pro wo stress test-[place] Only 11:21: 42 CASK MAKER CPT-44383 Visit 16:00:50 CASK MAKER CPT-69113A Sono biophysical pro wo stress test-[place] Only 13:12: 18 CASK MAKER CPT-26881 Sono biophysical pro wo stress test 11:17:21 CASK MAKER 05/21 CPT-68990 Tdap 7yrs or > 15:22:51 CASK MAKER CPT-71361 Immunization Single Admin 15:22:51 CASK MAKER CPT-45920 Tdap 7yrs or > 15:09:13 CASK MAKER CPT-04735 Visit 14:54:16 CASK MAKER CPT-02325 Fluzone Quadrivalent Intramuscular Suspension 0.5 ML 16: 58:58 CDT CPT-79945 Administration single or combination vaccine inc oral 16 :58:58 CDT CPT-48121 Fluzone Thim Free 36mo and older 14:47:39 CDT CPT-64071 Visit 14:47:39 CDT CPT-15795 Sono OB limited 10:30:07 CDT CPT-19695 Visit 10:04:44 CDT CPT-93368 Sono OB comp > 14 weeks 12:50:41 CDT CPT-02295 Visit 12:06:25 CDT CPT-01700 Visit 12:43:15 CDT CPT-01853 Visit 10:06:02 CDT CPT-76013 Spec Collection and Handling Fee 10:00:31 CDT CPT-04480 Visit 10:00:30 CDT CPT-25307 Drug Screen Grisel 14:36:13 CDT
--- OUTSIDE RECORDS SUMMARY | 2018-08-28 06:12 | XMS REPORT | Clinical Summary ---
Author Author Admin, E Organization [facility] Address Unknown Phone Unavailable Allergies, Adverse [...] Supervision high risk , third trimester V23.9 Active Karen Jaramillo MD Supervision of unspecified high-risk Advanced maternal age 659.60 Active Karen Jaramillo [...] antepartum condition or complication Trichomonal vaginitis 131.01 Active Karen Jaramillo MD Trichomonal vulvovaginitis Insect bite 919.4 Resolved Karen Jaramillo MD Insect bite, nonvenomous, of other, multiple, and unspecified sites, without mention of infection Sexual activity, high risk V69.2 Active Karen Jaramillo MD High-risk sexual behavior Diarrhea 787.91 Active Karen Jaramillo MD Diarrhea Nausea and vomiting 787.01 Active Karen Jaramillo MD Nausea with vomiting Supervision of elderly primigravida, second trimester V23.83 Resolved Karen Jaramillo MD Young primigravida Weight loss 783.21 Resolved Karen Jaramillo MD Loss of weight 18 weeks gestation of V28.9 Resolved Karen Jaramillo MD Encounter for unspecified screening of mother Obesity complicating , second trimester 649.13 Active Patricia Kat Obesity complicating , childbirth, or the puerperium, antepartum condition or complication 20 weeks gestation of V28.9 Inactive Deepika Alvarez LRT Encounter for unspecified screening of mother Low lying placenta 762.2 Active Karen Jaramillo MD Other and unspecified morphological and functional abnormalities of placenta affecting fetus or 24 weeks gestation of V28.9 Inactive Karen Jaramillo MD Encounter for unspecified screening of mother 28 weeks gestation of V28.9 Active Karen Jaramillo MD Encounter for unspecified screening of mother Polyhydramnios, antepartum 657.03 Active Karen Jaramillo MD Polyhydramnios, antepartum condition or complication 29 weeks gestation of V28.9 Inactive Deepika Alvarez LRT Encounter for unspecified screening of mother Cellulitis 682.9 Active Rian Ortega MD Cellulitis and abscess of unspecified sites Abscess, skin 682.9 Active Carline Best APRN Cellulitis and abscess of unspecified sites 30 weeks gestation of V28.9 Inactive Deepika Kunzty LRT Encounter for unspecified screening of mother 31 weeks gestation of V28.9 Inactive Deepika Kunzty LRT Encounter for unspecified screening of mother Health examination of defined subpopulations ICD-V70.5 Inactive Karen Jaramillo MD Insect bite ICD-919.4 Inactive Karen Jaramillo MD Supervision of elderly primigravida, second trimester ICD-V23.83 Inactive Karen Jaramillo MD Weight loss ICD-783.21 Inactive Karen Jaramillo MD 18 weeks gestation of ICD-V28.9 Inactive Karen Jaramillo MD 20 weeks gestation of ICD-V28.9 Inactive Deepika Kunzty LRT 29 weeks gestation of ICD-V28.9 Inactive Deepika Alvarez LRT 30 weeks gestation of ICD-V28.9 Inactive Deepika Alvarez LRT 31 weeks gestation of ICD-V28.9 Inactive Deepika Kunzty LRT Medication List Medication Instructions Start Date Stop Date Generic Name NDC Status Provider Patient Instruction CHANTIX 1 MG TABS 1 twice a day to help quit smoking VARENICLINE TARTRATE 54108166827 Active Rian Ortega MD Active CHANTIX STARTING MONTH DANILO 0.5 MG X 11 & 1 MG X 42 TABS take as directed 2015 VARENICLINE TARTRATE 80120318888 Active Rian Ortega MD Active CLINDAMYCIN HCL 150 MG CAPS 1 four times a day for 1 week CLINDAMYCIN HCL 41121985251 No Longer Active Karen Jaramillo MD Active TRIAMCINOLONE ACETONIDE 0.1 % CREA Apply to affected areas TID for up to 1 week TRIAMCINOLONE ACETONIDE 67501459431 No Longer Active Rian Ortega MD Active ZITHROMAX 1 GM ORAL PACK Take 1 time and recheck lab in 2-3 weeks AZITHROMYCIN 27413746899 No Longer Active Rian Ortega MD Active PNV PLUS MULTIVITAMIN 27-1 MG ORAL TABS 1 daily VIT-FE FUMARATE-FA 41910963925 Active Aris Charlton MD Active FLAGYL 500 MG TAB four tabs PO x 1 METRONIDAZOLE 13931786181 No Longer Active Aris Charlton MD Active FLAGYL 500 MG TAB four tabs PO x 1 FLAGYL 500 MG TAB 774438 METRONIDAZOLE Inactive ZITHROMAX 1 GM ORAL PACK Take 1 time and recheck lab in 2-3 weeks ZITHROMAX 1 GM ORAL PACK 154111 AZITHROMYCIN Inactive TRIAMCINOLONE ACETONIDE 0.1 % CREA Apply to affected areas TID for up to 1 week TRIAMCINOLONE ACETONIDE 0.1 % CREA 1020951 TRIAMCINOLONE ACETONIDE Inactive CLINDAMYCIN HCL 150 MG CAPS 1 four times a day for 1 week CLINDAMYCIN HCL 150 MG CAPS 677484 CLINDAMYCIN HCL Inactive Immunizations Vaccine Administration Date Value Standard Description hepatitis B vaccine series yes hepatitis B vaccine, unspecified formulation Vital Signs Date Name Value Unit Range Description blood pressure, diastolic - 8462-4 55 mm[Hg] [...] % 11.0-15.0 platelet count 307 THOUSAND/UL 10*3/mm3 821-886 8679/05/26 mean platelet volume 8.9 fL 7.5-11.5 Blood [...] rubella antibody, serum, IgG 2.66 Lab Report: ANTIBODY SCREEN, RBCW/REFL I - Blood bank antibody screen, serum NO ANTIBODIES DETECTED Lab Report: CBC W/DIFF, Comp. Metabolic Panel, Thyroid Stimulating Hormo ... - Chemistry sodium, serum 137 mmol/L 223-490 4670/08/28 potassium, serum 4.3 mmol/L 3.5-5.2 chloride, serum [...] 302 10^3/MM^3 10*3/mm3 142-424 Lab Report: Chlamydia/GC APTIMA/37290 - Lab chlamydia DNA probe NOT DETECTED NOT DETECTED chlamydia DNA probe NOT DETECTED NOT DETECTED chlamydia DNA probe DETECTED NOT DETECTED Lab Report: Chlamydia/GC APTIMA/83678 - Microbiology Neisseria gonorrhoeae DNA probe NOT DETECTED NOT DETECTED Neisseria gonorrhoeae DNA probe NOT DETECTED NOT DETECTED Neisseria gonorrhoeae DNA probe NOT DETECTED NOT DETECTED Lab Report: Chlamydia/GC APTIMA/35437, HEPATITIS B S AG W/, HIV-1/2 Agn/ ... - Chemistry hepatitis B surface antigen NON-REACTIVE NON-REACTIVE Lab Report: Chlamydia/GC APTIMA/31612, HEPATITIS B S AG W/, HIV-1/2 Agn/ ... - Lab chlamydia DNA probe NOT DETECTED NOT DETECTED Lab Report: Chlamydia/GC APTIMA/75994, HEPATITIS B S AG W/, HIV-1/2 Agn/ ... - Microbiology Neisseria gonorrhoeae DNA probe NOT DETECTED NOT DETECTED Lab Report: Chlamydia/GC APTIMA/02330, HEPATITIS B S AG W/, HIV-1/2 Agn/ ... - Serology rapid plasma reagin antibody titer NON-REACTIVE NON-REACTIVE Lab Report: HGBA1C - Chemistry hemoglobin A1C, blood, as % of total hemoglobin 5.3 % 4.3-6.0 Lab Report: Thyroid Stimulating Hormone (L), [facility] - Chemistry TSH 2.31 m[iU]/mL 0.36-3.74 Lab Report: UADIP W/MICRO, AUTO - Chemistry RBC, urine, dipstick Negative Negative protein, total urine random Trace mg/dL Negative Lab Report: UADIP W/MICRO, AUTO - Urinalysis pH, urine, semiquantitative 7.0 5.0-8.5 specific gravity, urine 1.020 1.000-1.030 appearance, urine Hazy Clear urine color Yellow Colorless;Lightyellow;Straw;Yellow urobilinogen, urine, semiquantitative (dipstick) 0.2 Normal leukocyte esterase, urine, by dipstick Negative Negative glucose, urine, semiquantitative Negative Negative nitrite, urine, semiquantitative Negative Negative urate crystals, amorphous, urine, semiquantitative Moderate None seen ketones, urine, by test strip Negative Negative bilirubin, urine Negative Negative [place] Report[place] [facility] [place] human chorionic gonadotropin, urine, qualitative (urine test) Positive Negative Office Visit: Unknown - Urinalysis protein, urine, semiquantitative (dipstick) 1+ glucose, urine, semiquantitative N nitrite, urine, semiquantitative N Office Visit: follow up ob - Urinalysis protein, urine, semiquantitative (dipstick) Tr glucose, urine, semiquantitative N nitrite, urine, semiquantitative N protein, urine, semiquantitative (dipstick) Tr glucose, urine, semiquantitative N nitrite, urine, semiquantitative N Office Visit: Initial OB Visit - Chemistry [...] mg/dL protein, total urine random Tr mg/dL protein, total urine random N mg/dL Office Visit: OB Visit - Urinalysis glucose, urine, semiquantitative N nitrite, urine, semiquantitative N glucose, urine, semiquantitative N nitrite, urine, semiquantitative N glucose, urine, semiquantitative N nitrite, urine, semiquantitative N Encounters Code Encounter Date Provider Facility CPT-75604 Level 3 Est. Patient 13:55:16 PATENT PROSECUTION PARALEGAL Rian Ortega MD [facility] CPT-74456 Level 3 Est. Patient 10:42:52 CDT Corrina Bailon APRN [facility] CPT-99074 Level 3 Est. Patient 11:18:30 CDT Aris Charlton MD [facility] Procedures Code Procedure Name Date Entry Date Standard Description CPT-J0702 Celestone 6 mg (Betamethasone) 15:04:45 PATENT PROSECUTION PARALEGAL CPT-03448 Abx/Therapy Injection 15:04:45 PATENT PROSECUTION PARALEGAL CPT-J0702 Celestone 12 mg (Betamethasone) 11:45:31 PATENT PROSECUTION PARALEGAL CPT-37647 Visit 11:39:52 PATENT PROSECUTION PARALEGAL CPT-05443O [facility] [employer] pro wo stress test-[facility] 11:21: 42 PATENT PROSECUTION PARALEGAL CPT-25347 Visit 16:00:50 PATENT PROSECUTION PARALEGAL CPT-44044L [employer] biophysical pro wo stress test-[facility] 13:12: 18 PATENT PROSECUTION PARALEGAL CPT-36251 [employer] biophysical pro wo stress test 11:17:21 PATENT PROSECUTION PARALEGAL 05/21 CPT-81663 Tdap 7yrs or > 15:22:51 PATENT PROSECUTION PARALEGAL CPT-14431 Immunization Single Admin 15:22:51 PATENT PROSECUTION PARALEGAL CPT-51191 Tdap 7yrs or > 15:09:13 PATENT PROSECUTION PARALEGAL CPT-96029 Visit 14:54:16 PATENT PROSECUTION PARALEGAL CPT-98673 Fluzone Quadrivalent Intramuscular Suspension 0.5 ML 16: 58:58 CDT CPT-69252 Administration single or combination vaccine inc oral 16 :58:58 CDT CPT-14005 Fluzone Thim Free 36mo and older 14:47:39 CDT CPT-39063 Visit 14:47:39 CDT CPT-62620 Sono OB limited 10:30:07 CDT CPT-60162 Visit 10:04:44 CDT CPT-04149 Sono OB comp > 14 weeks 12:50:41 CDT CPT-39993 Visit 12:06:25 CDT CPT-22954 Visit 12:43:15 CDT CPT-94101 Visit 10:06:02 CDT CPT-20753 Spec Collection and Handling Fee 10:00:31 CDT CPT-48245 Visit 10:00:30 CDT CPT-75758 Drug Screen Grisel 14:36:13 CDT
--- OUTSIDE RECORDS SUMMARY | 2018-08-28 06:12 | XMS REPORT | Clinical Summary ---
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 Sasha [...] Cough 786.2 Active Carline Best APRN Cough Supervision high risk , third trimester ICD-V23.9 [...] Dysuria ICD-788.1 Inactive Rian Ortega MD 03/29 Weight loss ICD-783.21 Inactive Karen Jaramillo MD 18 weeks gestation of ICD-V28.9 Inactive Karen Jaramillo MD Bronchitis ICD-490 Inactive Rian Ortega MD 2016 Medication List Medication Instructions Start Date Stop Date Generic Name NDC Status Provider Patient Instruction AZITHROMYCIN 250 MG ORAL TABLET 2 po qd x 1 day, then 1 po qd x 4 days 07/27 AZITHROMYCIN 11674803232 No Longer Active Carline Best APRN Active GUAIFENESIN ER 600 MG ORAL TABLET EXTENDED RELEASE 12 HOUR 1 twice a day as needed for congestion GUAIFENESIN 79614306421 No Longer Active Sasha Espitia APRN Active CYCLOBENZAPRINE HCL 10 MG ORAL TABLET 1 three times a day as needed for muscle spasm CYCLOBENZAPRINE HCL 85236863103 No Longer Active Sasha Espitia APRN Active SYMBICORT 160-4.5 MCG/ACT INHALATION AEROSOL 2 puff BID for 10 days BUDESONIDE-FORMOTEROL FUMARATE 08019003689 No Longer Active Rian Ortega MD Active AZITHROMYCIN 250 MG ORAL TABLET 2 po qd x 1 day, then 1 po qd x 4 days 02/15 AZITHROMYCIN 62692376912 No Longer Active Carline Best APRN Active CIPRO 500 MG ORAL TABLET 1 tablet by mouth twice daily CIPROFLOXACIN HCL 46058771535 No Longer Active Tariq Marrero MD Active AZO TABS TABLET 2 tabs qd PHENAZOPYRIDINE HCL TABS 72905443913 No Longer Active Tariq Marrero MD Active CIPROFLOXACIN HCL 250 MG ORAL TABLET 1 twice a day for bladder infection 2016 CIPROFLOXACIN HCL 48183692235 No Longer Active Tariq Marrero MD Active SM VITAMIN B12 TR 1000 MCG ORAL TABLET EXTENDED RELEASE 1 tab po daily 04/24 CYANOCOBALAMIN 32761800074 No Longer Active Nereyda Rodriguez APRN Active CARAFATE 1 GM ORAL TABLET 1 tab po as needed up to 4 times per day SUCRALFATE 76776151882 No Longer Active Nereyda Rodriguez APRN Active PNV PLUS MULTIVITAMIN 27-1 MG ORAL TABLET 1 daily 04/24 VIT-FE FUMARATE-FA 21785698805 No Longer Active Sasha Espitia APRN Active CHANTIX STARTING MONTH DANILO 0.5 MG X 11 & 1 MG X 42 ORAL TABLET take as directed VARENICLINE TARTRATE 70967848813 No Longer Active Sasha Espitia APRN Active CHANTIX 1 MG ORAL TABLET 1 twice a day to help quit smoking 04/24 VARENICLINE TARTRATE 58478736344 No Longer Active Sasha Espitia APRN Active OMEPRAZOLE 20 MG ORAL CAPSULE DELAYED RELEASE 1 tablet by mouth daily OMEPRAZOLE 86644178583 Active Sasha Espitia APRN Active FLINSTONES GUMMIES OMEGA-3 DHA ORAL TABLET CHEWABLE 2 gummies per day PEDIATRIC MULTIPLE VIT-C-FA 05051052914 Active Sasha Espitia APRN Active CLINDAMYCIN HCL 150 MG ORAL CAPSULE 1 four times a day for 1 week CLINDAMYCIN HCL 23577297354 No Longer Active Karen Jaramillo MD Active TRIAMCINOLONE ACETONIDE 0.1 % EXTERNAL CREAM Apply to affected areas TID for up to 1 week TRIAMCINOLONE ACETONIDE 25683597349 No Longer Active Rian Ortega MD Active ZITHROMAX 1 GM ORAL PACKET Take 1 time and recheck lab in 2-3 weeks AZITHROMYCIN 20667315348 No Longer Active Rian Ortega MD Active FLAGYL 500 MG ORAL TABLET four tabs PO x 1 METRONIDAZOLE 90354328926 No Longer Active Aris Charlton MD Active FLAGYL 500 MG ORAL TABLET four tabs PO x 1 FLAGYL 500 MG ORAL TABLET 239705 METRONIDAZOLE Inactive ZITHROMAX 1 GM ORAL PACKET Take 1 time and recheck lab in 2-3 weeks ZITHROMAX 1 GM ORAL PACKET 276696 AZITHROMYCIN Inactive TRIAMCINOLONE ACETONIDE 0.1 % EXTERNAL CREAM Apply to affected areas TID for up to 1 week TRIAMCINOLONE ACETONIDE 0.1 % EXTERNAL CREAM 6254683 TRIAMCINOLONE ACETONIDE Inactive CLINDAMYCIN HCL 150 MG ORAL CAPSULE 1 four times a day for 1 week CLINDAMYCIN HCL 150 MG ORAL CAPSULE 763849 CLINDAMYCIN HCL Inactive CHANTIX 1 MG ORAL [...] per day CARAFATE 1 GM ORAL TABLET 211758 SUCRALFATE Inactive SM VITAMIN B12 TR 1000 MCG ORAL TABLET EXTENDED RELEASE 1 tab po daily 04/24 SM VITAMIN B12 TR 1000 MCG ORAL TABLET EXTENDED RELEASE CYANOCOBALAMIN Inactive CIPROFLOXACIN HCL 250 MG ORAL TABLET 1 twice a day for bladder infection 2016 CIPROFLOXACIN HCL 250 MG ORAL TABLET 694392 CIPROFLOXACIN HCL Inactive AZO TABS TABLET 2 tabs qd AZO TABS TABLET PHENAZOPYRIDINE HCL TABS Inactive SYMBICORT 160-4.5 MCG/ACT INHALATION AEROSOL 2 puff BID for 10 days SYMBICORT 160-4.5 MCG/ACT INHALATION AEROSOL BUDESONIDE- FORMOTEROL FUMARATE Inactive CYCLOBENZAPRINE HCL 10 MG ORAL TABLET 1 three times a day as needed for muscle spasm CYCLOBENZAPRINE HCL 10 MG ORAL TABLET 220034 CYCLOBENZAPRINE HCL Inactive GUAIFENESIN ER 600 MG ORAL TABLET EXTENDED RELEASE 12 HOUR 1 twice a day as needed for congestion GUAIFENESIN ER 600 MG ORAL TABLET EXTENDED RELEASE 12 HOUR GUAIFENESIN Inactive CIPRO 500 MG ORAL TABLET 1 tablet by mouth twice daily CIPRO 500 MG ORAL TABLET 309682 CIPROFLOXACIN HCL Inactive AZITHROMYCIN 250 MG ORAL TABLET 2 po qd x 1 day, then 1 po qd x 4 days 02/15 AZITHROMYCIN 250 MG ORAL TABLET 073361 AZITHROMYCIN Inactive AZITHROMYCIN 250 MG ORAL TABLET 2 po qd x 1 day, then 1 po qd x 4 days 07/27 AZITHROMYCIN 250 MG ORAL TABLET 120848 AZITHROMYCIN Inactive Immunizations Vaccine Administration Date Value Standard Description hepatitis B vaccine series yes hepatitis B vaccine, unspecified formulation Vital Signs Date Name Value Unit Range Description blood pressure, diastolic 73 mm[Hg] BP calvo [...] temperature weight E&M 161.5 [lb_av] Weight Measured Diagnostic Results Date Name Value Unit Range Description Lab Report: CBC, Lipid Panel, Thyroid Stimulating Hormone (L), Free Thyr ... - Chemistry cholesterol, serum 142 mg/dL 314-707 7353/10/24 triglyceride, serum, fasting 77 mg/dL 30-200 HDL [...] Panel - Chemistry sodium, serum 137 mmol/L 051-536 7353/10/24 carbon dioxide, venous blood 24.4 mmol/L 21.0-32.0 [...] Negative;Positive Encounters Code Encounter Date Provider Facility CPT-93359 Level 3 Est. Patient 11:06:09 ELECTRICAL PROSPECTOR Carline Best [facility] CPT-70162 Level 3 Est. Patient 15:59:13 ELECTRICAL PROSPECTOR Carline Best [facility] CPT-01712 Employment/ICC Exam 15:03:09 ELECTRICAL PROSPECTOR Sasha Espitia [facility] CPT-44077 Level 3 Est. Patient 11:54:40 CDT Rian Ortega MD [facility] CPT-41500 Level 3 Est. Patient 11:17:51 CDT Carline Best [facility] CPT-28602 Level 3 Est. Patient 15:43:38 CDT Tariq Marrero MD [facility] CPT-23959 Level 3 Est. Patient 11:16:27 ELECTRICAL PROSPECTOR Nereyda Rodriguez [facility] CPT-43241 Level 4 Est. Patient 08:56:42 ELECTRICAL PROSPECTOR Sasha Espitia [facility] CPT-81612 Level 3 Est. Patient 16:40:58 CDT Rian Ortega MD [facility] CPT-08627 Level 3 Est. Patient 13:55:16 ELECTRICAL PROSPECTOR Rian Ortega MD [facility] CPT-28788 Level 3 Est. Patient 10:42:52 CDT Corrina Bailon [facility] CPT-56798 Level 3 Est. Patient 11:18:30 CDT Aris Charlton MD [facility] Procedures Code Procedure Name Date Entry Date Standard Description CPT-37027 UA w micro - LAB USE ONLY 13:09:18 ELECTRICAL PROSPECTOR CPT-17189 Urine Culture - LAB USE ONLY 13:09:18 ELECTRICAL PROSPECTOR CPT-67552 Wet Mount - LAB USE ONLY 11:11:39 ELECTRICAL PROSPECTOR CPT-84397 Lipid - LAB USE ONLY 15:05:24 ELECTRICAL PROSPECTOR CPT-60209 PT/INR - LAB USE ONLY 12:14:07 CDT CPT-54759 HGBA1C - LAB USE ONLY 12:14:07 CDT CPT-08085 CMP - LAB USE ONLY 12:14:07 CDT CPT-42247 CBC - LAB USE ONLY 12:14:07 CDT CPT-95236 Venipuncture Draw Fee 12:14:06 CDT CPT-J0702 Celestone 6 mg (Betamethasone) 15:04:45 ELECTRICAL PROSPECTOR CPT-67063 Abx/Therapy Injection 15:04:45 ELECTRICAL PROSPECTOR CPT-J0702 Celestone 12 mg (Betamethasone) 11:45:31 ELECTRICAL PROSPECTOR CPT-62240 Visit 11:39:52 ELECTRICAL PROSPECTOR CPT-47170K [employer] biophysical pro wo stress test-[place] Only 11:21: 42 ELECTRICAL PROSPECTOR CPT-78226 Visit 16:00:50 ELECTRICAL PROSPECTOR CPT-07170P Sono biophysical pro wo stress test-[place] Only 13:12: 18 ELECTRICAL PROSPECTOR CPT-63028 Sono biophysical pro wo stress test 11:17:21 ELECTRICAL PROSPECTOR 05/21 CPT-79740 Tdap 7yrs or > 15:22:51 ELECTRICAL PROSPECTOR CPT-35036 Immunization Single Admin 15:22:51 ELECTRICAL PROSPECTOR CPT-71070 Tdap 7yrs or > 15:09:13 ELECTRICAL PROSPECTOR CPT-47767 Visit 14:54:16 ELECTRICAL PROSPECTOR CPT-48814 Fluzone Quadrivalent Intramuscular Suspension 0.5 ML 16: 58:58 CDT CPT-10117 Administration single or combination vaccine inc oral 16 :58:58 CDT CPT-66220 Fluzone Thim Free 36mo and older 14:47:39 CDT CPT-08829 Visit 14:47:39 CDT CPT-93096 Sono OB limited 10:30:07 CDT CPT-19098 Visit 10:04:44 CDT CPT-06704 Sono OB comp > 14 weeks 12:50:41 CDT CPT-38194 Visit 12:06:25 CDT CPT-16547 Visit 12:43:15 CDT CPT-90612 Visit 10:06:02 CDT CPT-60361 Spec Collection and Handling Fee 10:00:31 CDT CPT-51247 Visit 10:00:30 CDT CPT-23806 Drug Screen [place]isel 14:36:13 CDT
--- OUTSIDE RECORDS SUMMARY | 2018-08-28 06:13 | XMS REPORT | Clinical Summary ---
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 Sasha Espitia [employer] Routine gynecological examination Bariatric operative procedure V45.86 [...] second trimester ICD-V23.83 Inactive Karen Jaramillo MD 18 weeks gestation of ICD-V28.9 Inactive Karen Jaramillo MD Obesity complicating , second trimester ICD-649.13 10/31 Inactive Rian Ortega MD 20 weeks gestation of ICD-V28.9 Inactive Deepika MCQUEENT Low lying placenta ICD-762.2 Inactive Rian Ortega MD 28 weeks gestation of ICD-V28.9 Inactive Rian Ortega MD 29 weeks gestation of ICD-V28.9 Inactive Deepika MCQUEENT Cellulitis ICD-682.9 Inactive Rina Ortega MD Abscess, skin ICD-682.9 Inactive Rian Ortega MD 30 weeks gestation of ICD-V28.9 Inactive eDepika MCQUEENT 31 weeks gestation of ICD-V28.9 Inactive Deepika MCQUEENT Weight loss ICD-783.21 Inactive Karen Jaramillo MD Medication List Medication Instructions Start Date Stop Date Generic Name NDC Status Provider Patient Instruction PNV PLUS MULTIVITAMIN 27-1 MG ORAL TABS 1 daily VIT-FE FUMARATE-FA 60412826860 No Longer Active Sasha Espitia APRN Active CHANTIX STARTING MONTH DANILO 0.5 MG X 11 & 1 MG X 42 TABS take as directed 2015 VARENICLINE TARTRATE 53937859658 No Longer Active Sasha Espitia APRN Active CHANTIX 1 MG TABS 1 twice a day to help quit smoking VARENICLINE TARTRATE 16472701582 No Longer Active Sasha Espitia APRN Active OMEPRAZOLE 20 MG CPDR 1 tablet by mouth daily OMEPRAZOLE 28965511569 Active Sasha Omkar PÉREZ Active CARAFATE 1 GM TAB 1 tab po as needed up to 4 times per day SUCRALFATE 50137843852 Active Sasha Espitia BETO Active FLINSTONES GUMMIES OMEGA-3 DHA ORAL CHEW 2 gummies per day PEDIATRIC MULTIPLE VIT-C-FA 13113656520 Active Sasha Espitia BETO Active SM VITAMIN B12 TR 1000 MCG ORAL CR-TABS 1 tab po daily CYANOCOBALAMIN 52900733093 Active Sasha Espitia BETO Active CLINDAMYCIN HCL 150 MG CAPS 1 four times a day for 1 week CLINDAMYCIN HCL 16953292188 No Longer Active Karen Jaramillo MD Active TRIAMCINOLONE ACETONIDE 0.1 % CREA Apply to affected areas TID for up to 1 week TRIAMCINOLONE ACETONIDE 73965166930 No Longer Active Rian Ortega MD Active ZITHROMAX 1 GM ORAL PACK Take 1 time and recheck lab in 2-3 weeks AZITHROMYCIN 90869655353 No Longer Active Rian Ortega MD Active FLAGYL 500 MG TAB four tabs PO x 1 METRONIDAZOLE 29660672091 No Longer Active Aris Charlton MD Active FLAGYL 500 MG TAB four tabs PO x 1 FLAGYL 500 MG TAB 918331 METRONIDAZOLE Inactive ZITHROMAX 1 GM ORAL PACK Take 1 time and recheck lab in 2-3 weeks ZITHROMAX 1 GM ORAL PACK 961263 AZITHROMYCIN Inactive TRIAMCINOLONE ACETONIDE 0.1 % CREA Apply to affected areas TID for up to 1 week TRIAMCINOLONE ACETONIDE 0.1 % CREA 8108828 TRIAMCINOLONE ACETONIDE Inactive CLINDAMYCIN HCL 150 MG CAPS 1 four times a day for 1 week CLINDAMYCIN HCL 150 MG CAPS 558615 CLINDAMYCIN HCL Inactive CHANTIX 1 MG TABS [...] HGBA1C - Chemistry sodium, serum 142 mmol/L 171-442 7244 carbon dioxide, venous blood 32.8 mmol/L 21.0-32.0 [...] Panel - Chemistry cholesterol, serum 165 mg/dL 082-539 1287 triglyceride, serum, fasting 124 mg/dL 30-200 HDL [...] N Encounters Code Encounter Date Provider Facility CPT-78566 Level 3 Est. Patient 16:40:58 CDT Rian Ortega MD [facility] CPT-43508 Level 3 Est. Patient 13:55:16 MANAGER RISK Rian Ortega MD [facility] CPT-45104 Level 3 Est. Patient 10:42:52 CDT Corrina Bailon APRN [facility] CPT-18410 Level 3 Est. Patient 11:18:30 CDT Aris Charlton MD [facility] Procedures Code Procedure Name Date Entry Date Standard Description CPT-71982 Wet Mount - LAB USE ONLY 11:11:39 MANAGER RISK CPT-65705 Lipid - LAB USE ONLY 15:05:24 MANAGER RISK CPT-11962 PT/INR - LAB USE ONLY 12:14:07 CDT CPT-23633 HGBA1C - LAB USE ONLY 12:14:07 CDT CPT-75062 CMP - LAB USE ONLY 12:14:07 CDT CPT-94247 CBC - LAB USE ONLY 12:14:07 CDT CPT-03768 Venipuncture Draw Fee 12:14:06 CDT CPT-J0702 Celestone 6 mg (Betamethasone) 15:04:45 MANAGER RISK CPT-15209 Abx/Therapy Injection 15:04:45 MANAGER RISK CPT-J0702 Celestone 12 mg (Betamethasone) 11:45:31 MANAGER RISK CPT-05756 Visit 11:39:52 MANAGER RISK CPT-79325W Sono biophysical pro wo stress test-[facility] 11:21: 42 MANAGER RISK CPT-53258 Visit 16:00:50 MANAGER RISK CPT-37797T Sono biophysical pro wo stress test-[facility] 13:12: 18 MANAGER RISK CPT-14616 Sono biophysical pro wo stress test 11:17:21 MANAGER RISK 05/21 CPT-25617 Tdap 7yrs or > 15:22:51 MANAGER RISK CPT-11305 Immunization Single Admin 15:22:51 MANAGER RISK CPT-12687 Tdap 7yrs or > 15:09:13 MANAGER RISK CPT-81238 Visit 14:54:16 MANAGER RISK CPT-96487 Fluzone Quadrivalent Intramuscular Suspension 0.5 ML 16: 58:58 CDT CPT-63168 Administration single or combination vaccine inc oral 16 :58:58 CDT CPT-29175 Fluzone Thim Free 36mo and older 14:47:39 CDT CPT-53379 Visit 14:47:39 CDT CPT-42151 Sono OB limited 10:30:07 CDT CPT-78411 Visit 10:04:44 CDT CPT-00946 Sono OB comp > 14 weeks 12:50:41 CDT CPT-07397 Visit 12:06:25 CDT CPT-08728 Visit 12:43:15 CDT CPT-21359 Visit 10:06:02 CDT CPT-15650 Spec Collection and Handling Fee 10:00:31 CDT CPT-23898 Visit 10:00:30 CDT CPT-08974 Drug Screen Grsiel 14:36:13 CDT
--- OUTSIDE RECORDS SUMMARY | 2018-08-28 06:13 | XMS REPORT | Clinical Summary ---
Author Author Admin, [facility] Organization [facility] Address Unknown Phone Unavailable Allergies, Adverse [...] TAB four tabs PO x 1 METRONIDAZOLE 13396970982 Active Karen Jaramillo MD Active Diagnostic Results Date Name Value Unit Range Description Lab Report: HGBA1C - Chemistry hemoglobin A1C, blood, as % of total hemoglobin 5.3 % 4.3-6.0 Lab Report: Thyroid Stimulating Hormone (L), Quant BHCG - Chemistry TSH 2.31 m[iU]/mL 0.36-3.74 Procedures Code Procedure Name Date Entry Date Standard Description CPT-36655 Spec Collection and Handling Fee 10:00:31 CDT CPT-01466 Visit 10:00:30 CDT CPT-13061 Drug Screen Grisel 14:36:13 CDT
--- OUTSIDE RECORDS SUMMARY | 2018-08-28 06:14 | XMS REPORT | Clinical Summary ---
Author Author Admin, E Organization [facility] Address Unknown Phone Unavailable Allergies, Adverse [...] Active Rian Ortega MD Tobacco use disorder Bus Info Consultant well woman exam V72.31 Active Sasha Tan [...] Marrero MD Body Mass Index 29.0-29.9, adult Supervision high risk , third trimester ICD-V23.9 [...] Dysuria ICD-788.1 Inactive Rian Ortega MD 03/29 Health examination of defined subpopulations ICD-V70.5 Inactive Karen Jaramillo MD Myalgias ICD-729.1 Inactive Tariq Marrero MD Bronchitis ICD-490 Inactive Rian Ortega MD 2016 Medication List Medication Instructions Start Date Stop Date Generic Name NDC Status Provider Patient Instruction ZITHROMAX Z-DANILO 250 MG ORAL TABLET 2 today, then 1 daily for 4 days AZITHROMYCIN 15935456648 No Longer Active Mahsa Raida Active AZITHROMYCIN 250 MG ORAL TABLET 2 po qd x 1 day, then 1 po qd x 4 days 07/27 AZITHROMYCIN 22872848155 No Longer Active Carline Best APRN Active GUAIFENESIN ER 600 MG ORAL TABLET EXTENDED RELEASE 12 HOUR 1 twice a day as needed for congestion GUAIFENESIN 66808969764 No Longer Active Sasha Tan APRN Active CYCLOBENZAPRINE HCL 10 MG ORAL TABLET 1 three times a day as needed for muscle spasm CYCLOBENZAPRINE HCL 59244690729 No Longer Active Sasha Tan APRN Active SYMBICORT 160-4.5 MCG/ACT INHALATION AEROSOL 2 puff BID for 10 days BUDESONIDE-FORMOTEROL FUMARATE 96503559998 No Longer Active Rian Ortega MD Active AZITHROMYCIN 250 MG ORAL TABLET 2 po qd x 1 day, then 1 po qd x 4 days 02/15 AZITHROMYCIN 29082090048 No Longer Active Carline Best APRN Active CIPRO 500 MG ORAL TABLET 1 tablet by mouth twice daily CIPROFLOXACIN HCL 12002907663 No Longer Active Tariq Marrero MD Active AZO TABS TABLET 2 tabs qd PHENAZOPYRIDINE HCL TABS 43737533219 No Longer Active Tariq Marrero MD Active CIPROFLOXACIN HCL 250 MG ORAL TABLET 1 twice a day for bladder infection 2016 CIPROFLOXACIN HCL 98039440192 No Longer Active Tariq Marrero MD Active SM VITAMIN B12 TR 1000 MCG ORAL TABLET EXTENDED RELEASE 1 tab po daily 04/24 CYANOCOBALAMIN 89768561569 No Longer Active Nereyda Rodriguez APRN Active CARAFATE 1 GM ORAL TABLET 1 tab po as needed up to 4 times per day SUCRALFATE 80937810879 No Longer Active Nereyda Rodriguez APRN Active PNV PLUS MULTIVITAMIN 27-1 MG ORAL TABLET 1 daily 04/24 VIT-FE FUMARATE-FA 53840859141 No Longer Active Sasha Tan APRN Active CHANTIX STARTING MONTH DANILO 0.5 MG X 11 & 1 MG X 42 ORAL TABLET take as directed VARENICLINE TARTRATE 28120285957 No Longer Active Sasha Tan APRN Active CHANTIX 1 MG ORAL TABLET 1 twice a day to help quit smoking 04/24 VARENICLINE TARTRATE 11539949181 No Longer Active Sasha Tan APRN Active OMEPRAZOLE 20 MG ORAL CAPSULE DELAYED RELEASE 1 tablet by mouth daily OMEPRAZOLE 59500421213 Active Sasha Tan RECREATION COUNSELOR Active FLINSTONES GUMMIES OMEGA-3 DHA ORAL TABLET CHEWABLE 2 gummies per day PEDIATRIC MULTIPLE VIT-C-FA 18516398407 Active Sasha Tan RECREATION COUNSELOR Active CLINDAMYCIN HCL 150 MG ORAL CAPSULE 1 four times a day for 1 week CLINDAMYCIN HCL 69085071738 No Longer Active Karen Jaramillo MD Active TRIAMCINOLONE ACETONIDE 0.1 % EXTERNAL CREAM Apply to affected areas TID for up to 1 week TRIAMCINOLONE ACETONIDE 49717541040 No Longer Active Rian Ortega MD Active ZITHROMAX 1 GM ORAL PACKET Take 1 time and recheck lab in 2-3 weeks AZITHROMYCIN 28898395465 No Longer Active Rian Ortega MD Active FLAGYL 500 MG ORAL TABLET four tabs PO x 1 METRONIDAZOLE 85214699609 No Longer Active Aris Charlton MD Active FLAGYL 500 MG ORAL TABLET four tabs PO x 1 FLAGYL 500 MG ORAL TABLET 217920 METRONIDAZOLE Inactive ZITHROMAX 1 GM ORAL PACKET Take 1 time and recheck lab in 2-3 weeks ZITHROMAX 1 GM ORAL PACKET 808480 AZITHROMYCIN Inactive TRIAMCINOLONE ACETONIDE 0.1 % EXTERNAL CREAM Apply to affected areas TID for up to 1 week TRIAMCINOLONE ACETONIDE 0.1 % EXTERNAL CREAM 7299300 TRIAMCINOLONE ACETONIDE Inactive CLINDAMYCIN HCL 150 MG ORAL CAPSULE 1 four times a day for 1 week CLINDAMYCIN HCL 150 MG ORAL CAPSULE 419694 CLINDAMYCIN HCL Inactive CHANTIX 1 MG ORAL [...] per day CARAFATE 1 GM ORAL TABLET 760343 SUCRALFATE Inactive SM VITAMIN B12 TR 1000 MCG ORAL TABLET EXTENDED RELEASE 1 tab po daily 04/24 SM VITAMIN B12 TR 1000 MCG ORAL TABLET EXTENDED RELEASE CYANOCOBALAMIN Inactive CIPROFLOXACIN HCL 250 MG ORAL TABLET 1 twice a day for bladder infection 2016 CIPROFLOXACIN HCL 250 MG ORAL TABLET 410471 CIPROFLOXACIN HCL Inactive AZO TABS TABLET 2 tabs qd AZO TABS TABLET PHENAZOPYRIDINE HCL TABS Inactive SYMBICORT 160-4.5 MCG/ACT INHALATION AEROSOL 2 puff BID for 10 days SYMBICORT 160-4.5 MCG/ACT INHALATION AEROSOL BUDESONIDE- FORMOTEROL FUMARATE Inactive CYCLOBENZAPRINE HCL 10 MG ORAL TABLET 1 three times a day as needed for muscle spasm CYCLOBENZAPRINE HCL 10 MG ORAL TABLET 156004 CYCLOBENZAPRINE HCL Inactive GUAIFENESIN ER 600 MG ORAL TABLET EXTENDED RELEASE 12 HOUR 1 twice a day as needed for congestion GUAIFENESIN ER 600 MG ORAL TABLET EXTENDED RELEASE 12 HOUR GUAIFENESIN Inactive CIPRO 500 MG ORAL TABLET 1 tablet by mouth twice daily CIPRO 500 MG ORAL TABLET 741399 CIPROFLOXACIN HCL Inactive AZITHROMYCIN 250 MG ORAL TABLET 2 po qd x 1 day, then 1 po qd x 4 days 02/15 AZITHROMYCIN 250 MG ORAL TABLET 690869 AZITHROMYCIN Inactive AZITHROMYCIN 250 MG ORAL TABLET 2 po qd x 1 day, then 1 po qd x 4 days 07/27 AZITHROMYCIN 250 MG ORAL TABLET 327783 AZITHROMYCIN Inactive ZITHROMAX Z-DANILO 250 MG ORAL TABLET 2 today, then 1 daily for 4 days ZITHROMAX Z-DANILO 250 MG ORAL TABLET 605970 AZITHROMYCIN Inactive Immunizations Vaccine Administration Date Value [...] - Hematology leukocyte count, blood sent to [facility] 10^3/mm^3 10*3/mm3 4.6-10.2 Lab Report: CBC, Lipid Panel, Thyroid Stimulating Hormone (L), Free Thyr ... - Chemistry cholesterol, serum 142 mg/dL 405-396 1159/10/24 triglyceride, serum, fasting 77 mg/dL 30-200 HDL [...] Panel - Chemistry sodium, serum 137 mmol/L 609-557 1698/10/24 carbon dioxide, venous blood 24.4 mmol/L 21.0-32.0 [...] Negative;Positive Encounters Code Encounter Date Provider Facility CPT-14871 Level 3 Est. Patient 14:41:20 CDT Tariq Marrero MD [facility] CPT-75963 Level 3 Est. Patient 11:06:09 EXPLOSIVES ENGINEER Carline Best [facility] CPT-41470 Level 3 Est. Patient 15:59:13 EXPLOSIVES ENGINEER Carline Best [facility] CPT-86263 Employment/ICC Exam 15:03:09 EXPLOSIVES ENGINEER Sasha Tan [facility] CPT-62420 Level 3 Est. Patient 11:54:40 CDT Rian Ortega MD [facility] CPT-48196 Level 3 Est. Patient 11:17:51 CDT Carline Best [facility] CPT-32956 Level 3 Est. Patient 15:43:38 CDT Tariq Marrero MD [facility] CPT-97548 Level 3 Est. Patient 11:16:27 EXPLOSIVES ENGINEER Nereyda Rodriguez [facility] CPT-40482 Level 4 Est. Patient 08:56:42 EXPLOSIVES ENGINEER Sasha Tan [facility] CPT-47292 Level 3 Est. Patient 16:40:58 CDT Rian Ortega MD [facility] CPT-70015 Level 3 Est. Patient 13:55:16 EXPLOSIVES ENGINEER Rian Ortega MD [facility] CPT-67828 Level 3 Est. Patient 10:42:52 CDT Corrina Bailon [facility] CPT-08475 Level 3 Est. Patient 11:18:30 CDT Aris Charlton MD [facility] Procedures Code Procedure Name Date Entry Date Standard Description CPT-33117 UA w micro - LAB USE ONLY 13:09:18 EXPLOSIVES ENGINEER CPT-90052 Urine Culture - LAB USE ONLY 13:09:18 EXPLOSIVES ENGINEER CPT-39480 Wet Mount - LAB USE ONLY 11:11:39 EXPLOSIVES ENGINEER CPT-77508 Lipid - LAB USE ONLY 15:05:24 EXPLOSIVES ENGINEER CPT-53074 PT/INR - LAB USE ONLY 12:14:07 CDT CPT-61797 HGBA1C - LAB USE ONLY 12:14:07 CDT CPT-56832 CMP - LAB USE ONLY 12:14:07 CDT CPT-96042 CBC - LAB USE ONLY 12:14:07 CDT CPT-85684 Venipuncture Draw Fee 12:14:06 CDT CPT-J0702 Celestone 6 mg (Betamethasone) 15:04:45 EXPLOSIVES ENGINEER CPT-62320 Abx/Therapy Injection 15:04:45 EXPLOSIVES ENGINEER CPT-J0702 Celestone 12 mg (Betamethasone) 11:45:31 EXPLOSIVES ENGINEER CPT-13573 Visit 11:39:52 EXPLOSIVES ENGINEER CPT-31726V Sono biophysical pro wo stress test-[place] Only 11:21: 42 EXPLOSIVES ENGINEER CPT-13589 Visit 16:00:50 EXPLOSIVES ENGINEER CPT-61551J Sono biophysical pro wo stress test-[place] Only 13:12: 18 EXPLOSIVES ENGINEER CPT-01146 Sono biophysical pro wo stress test 11:17:21 EXPLOSIVES ENGINEER 05/21 CPT-35175 Tdap 7yrs or > 15:22:51 EXPLOSIVES ENGINEER CPT-73629 Immunization Single Admin 15:22:51 EXPLOSIVES ENGINEER CPT-54554 Tdap 7yrs or > 15:09:13 EXPLOSIVES ENGINEER CPT-86030 Visit 14:54:16 EXPLOSIVES ENGINEER CPT-26108 Fluzone Quadrivalent Intramuscular Suspension 0.5 ML 16: 58:58 CDT CPT-28000 Administration single or combination vaccine inc oral 16 :58:58 CDT CPT-24522 Fluzone Thim Free 36mo and older 14:47:39 CDT CPT-30961 Visit 14:47:39 CDT CPT-28000 Sono OB limited 10:30:07 CDT CPT-70138 Visit 10:04:44 CDT CPT-18758 Sono OB comp > 14 weeks 12:50:41 CDT CPT-69874 Visit 12:06:25 CDT CPT-09632 Visit 12:43:15 CDT CPT-18056 Visit 10:06:02 CDT CPT-47283 Spec Collection and Handling Fee 10:00:31 CDT CPT-68370 Visit 10:00:30 CDT CPT-42583 Drug Screen Grisel 14:36:13 CDT
--- OUTSIDE RECORDS SUMMARY | 2018-08-28 06:15 | XMS REPORT | Clinical Summary ---
Author Author Admin, [facility] Organization [facility] Address Unknown Phone Unavailable Allergies, Adverse Reactions, Alerts Allergy Name Reaction Description Start Date Severity Status Provider No Known Allergies Angelica Kolby TERRY Conditions or Problems Problem Name Problem Code [...] day to help quit smoking VARENICLINE TARTRATE 92502478092 Active Rian Ortega MD Active CHANTIX STARTING MONTH DANILO 0.5 MG X 11 & 1 MG X 42 TABS take as directed 2015 VARENICLINE TARTRATE 95229358870 Active Rian Ortega MD Active CLINDAMYCIN HCL 150 MG CAPS 1 four times a day for 1 week CLINDAMYCIN HCL 11981264173 No Longer Active Karen Jaramillo MD Active TRIAMCINOLONE ACETONIDE 0.1 % CREA Apply to affected areas TID for up to 1 week TRIAMCINOLONE ACETONIDE 16795990223 No Longer Active Rian Ortega MD Active ZITHROMAX 1 GM ORAL PACK Take 1 time and recheck lab in 2-3 weeks AZITHROMYCIN 80089458968 No Longer Active Rian Ortega MD Active PNV PLUS MULTIVITAMIN 27-1 MG ORAL TABS 1 daily VIT-FE FUMARATE-FA 28760462812 Active Aris Charlton MD Active FLAGYL 500 MG TAB four tabs PO x 1 METRONIDAZOLE 12825645677 No Longer Active Aris Charlton MD Active FLAGYL 500 MG TAB four tabs PO x 1 FLAGYL 500 MG TAB 235729 METRONIDAZOLE Inactive ZITHROMAX 1 GM ORAL PACK Take 1 time and recheck lab in 2-3 weeks ZITHROMAX 1 GM ORAL PACK 879184 AZITHROMYCIN Inactive TRIAMCINOLONE ACETONIDE 0.1 % CREA Apply to affected areas TID for up to 1 week TRIAMCINOLONE ACETONIDE 0.1 % CREA 8300715 TRIAMCINOLONE ACETONIDE Inactive CLINDAMYCIN HCL 150 MG CAPS 1 four times a day for 1 week CLINDAMYCIN HCL 150 MG CAPS 440172 CLINDAMYCIN HCL Inactive Immunizations Vaccine Administration Date Value Standard Description hepatitis B vaccine series yes hepatitis B vaccine, unspecified formulation Vital Signs Date Name Value Unit Range Description blood pressure, diastolic - 8462-4 82 mm[Hg] [...] ... - Chemistry sodium, serum 137 mmol/L 870-763 9666/08/28 potassium, serum 4.3 mmol/L 3.5-5.2 chloride, serum [...] Panel, Thyroid Stimulating Hormo ... - Hematology lymphocytes as percent of blood leukocytes 19.7 % 20.5-51.1 erythrocyte (RBC) count 3.94 10^6/MM^3 10*6/mm3 4.04-5.48 hemoglobin, blood 12.0 g/dL 12.0-16.0 hematocrit, blood 35.2 % 36.0-46.0 mean corpuscular volume, RBC 89 fL 80-97 mean corpuscular hemoglobin, RBC 30.5 pg 27.0-31.2 mean corpuscular hemoglobin concentration, RBC 34.1 G/DL % 31.8- 35.4 red blood cell distribution width 14.7 % 11.6-14.8 platelet count 325 10^3/MM^3 10*3/mm3 732-211 6203/08/28 monocytes as percent of blood leukocytes 3.8 % 1.7-9.3 neutrophils as percent of blood leukocytes 74.9 % 42.2-75.2 leukocyte count, blood 13.1 10^3/MM^3 10*3/mm3 4.6-10.2 Lab Report: CBC, Thyroid Stimulating Hormone (L), Free Thyroxine (L) - Chemistry TSH 1.66 m[iU]/mL 0.36-3.74 thyroxine, serum, free 0.80 ng/dL 0.76-1.46 Lab Report: CBC, Thyroid Stimulating Hormone (L), Free Thyroxine (L) - Hematology mean corpuscular volume, RBC 92 fL 80-97 mean corpuscular hemoglobin, RBC 31.0 pg 27.0-31.2 mean corpuscular hemoglobin concentration, RBC 33.9 G/DL % 31.8- 35.4 red blood cell distribution width 13.7 % 11.6-14.8 platelet count 302 10^3/MM^3 10*3/mm3 323-501 0350/11/18 leukocyte count, blood 11.7 10^3/MM^3 10*3/mm3 4.6-10.2 erythrocyte (RBC) count 3.60 10^6/MM^3 10*6/mm3 4.04-5.48 hemoglobin, blood 11.2 g/dL 12.0-16.0 hematocrit, blood 32.9 % 36.0-46.0 Lab Report: Chlamydia/GC APTIMA/71743 - Lab chlamydia DNA probe NOT DETECTED NOT DETECTED chlamydia DNA probe NOT DETECTED NOT DETECTED chlamydia DNA probe DETECTED NOT DETECTED Lab Report: Chlamydia/GC APTIMA/12989 - Microbiology Neisseria gonorrhoeae DNA probe NOT DETECTED NOT DETECTED Neisseria gonorrhoeae DNA probe NOT DETECTED NOT DETECTED Neisseria gonorrhoeae DNA probe NOT DETECTED NOT DETECTED Lab Report: Chlamydia/GC APTIMA/18719, HEPATITIS B S AG W/, HIV-1/2 Agn/ ... - Chemistry hepatitis B surface antigen NON-REACTIVE NON-REACTIVE Lab Report: Chlamydia/GC APTIMA/65463, HEPATITIS B S AG W/, HIV-1/2 Agn/ ... - Lab chlamydia DNA probe NOT DETECTED NOT DETECTED Lab Report: Chlamydia/GC APTIMA/25222, HEPATITIS B S AG W/, HIV-1/2 Agn/ ... - Microbiology Neisseria gonorrhoeae DNA probe NOT DETECTED NOT DETECTED Lab Report: Chlamydia/GC APTIMA/08894, HEPATITIS B S AG W/, HIV-1/2 Agn/ [...] crystals, amorphous, urine, semiquantitative Moderate None seen urine color Yellow Colorless;Lightyellow;Straw;Yellow appearance, urine Hazy Clear specific gravity, urine 1.020 1.000-1.030 pH, urine, semiquantitative 7.0 5.0-8.5 glucose, urine, semiquantitative Negative Negative ketones, urine, by test strip Negative Negative bilirubin, urine Negative Negative Lab Report: [facility] - Chemistry human chorionic gonadotropin, urine, qualitative [...] N Encounters Code Encounter Date Provider Facility CPT-69821 Level 3 Est. Patient 13:55:16 RECREATION FACILITY MANAGER Rian Ortega MD [facility] CPT-58474 Level 3 Est. Patient 10:42:52 CDT Corrina Bailon APRN [facility] CPT-45126 Level 3 Est. Patient 11:18:30 CDT Aris Charlton MD [facility] Procedures Code Procedure Name Date Entry Date Standard Description CPT-J0702 Celestone 6 mg (Betamethasone) 15:04:45 RECREATION FACILITY MANAGER CPT-07949 Abx/Therapy Injection 15:04:45 RECREATION FACILITY MANAGER CPT-J0702 Celestone 12 mg (Betamethasone) 11:45:31 RECREATION FACILITY MANAGER CPT-95354 Visit 11:39:52 RECREATION FACILITY MANAGER CPT-54235W Sono biophysical pro wo stress test-[place] Only 11:21: 42 RECREATION FACILITY MANAGER CPT-16669 Visit 16:00:50 RECREATION FACILITY MANAGER CPT-94348E Sono biophysical pro wo stress test-[place] Only 13:12: 18 RECREATION FACILITY MANAGER CPT-75811 Sono biophysical pro wo stress test 11:17:21 RECREATION FACILITY MANAGER 05/21 CPT-27274 Tdap 7yrs or > 15:22:51 RECREATION FACILITY MANAGER CPT-81520 Immunization Single Admin 15:22:51 RECREATION FACILITY MANAGER CPT-64565 Tdap 7yrs or > 15:09:13 RECREATION FACILITY MANAGER CPT-50496 Visit 14:54:16 RECREATION FACILITY MANAGER CPT-66877 Fluzone Quadrivalent Intramuscular Suspension 0.5 ML 16: 58:58 CDT CPT-51772 Administration single or combination vaccine inc oral 16 :58:58 CDT CPT-14653 Fluzone Thim Free 36mo and older 14:47:39 CDT CPT-21466 Visit 14:47:39 CDT CPT-09917 Sono OB limited 10:30:07 CDT CPT-55535 Visit 10:04:44 CDT CPT-10121 Sono OB comp > 14 weeks 12:50:41 CDT CPT-05823 Visit 12:06:25 CDT CPT-05031 Visit 12:43:15 CDT CPT-47858 Visit 10:06:02 CDT CPT-09442 Spec Collection and Handling Fee 10:00:31 CDT CPT-18643 Visit 10:00:30 CDT CPT-35046 Drug Screen Grisel 14:36:13 CDT
--- OUTSIDE RECORDS SUMMARY | 2018-08-28 06:15 | XMS REPORT | Clinical Summary ---
Author Author Admin, E Organization [facility] Address Unknown Phone Unavailable Allergies, Adverse [...] TAB four tabs PO x 1 METRONIDAZOLE 76883925692 Active Karen Jaramillo MD Active Immunizations Vaccine Administration Date Value Standard Description [...] % 11.0-15.0 platelet count 307 THOUSAND/UL 10*3/mm3 428-967 1510/05/26 mean platelet volume 8.9 fL 7.5-11.5 Blood [...] Lab Report: Thyroid Stimulating Hormone (L), Quant [facility] - Chemistry TSH 2.31 m[iU]/mL 0.36-3.74 Lab Report: [facility] - Chemistry human chorionic gonadotropin, urine, qualitative (urine test) Positive Negative Office Visit: Initial OB Visit - Chemistry protein, total urine random UC mg/dL Office Visit: Initial OB Visit - Genetics/fertility test, date 10/24/2014 Office Visit: Initial OB Visit - Microbiology Herpes Simplex Virus Genital no Office Visit: Initial OB Visit - Urinalysis glucose, urine, semiquantitative UC nitrite, urine, semiquantitative UC Procedures Code Procedure Name Date Entry Date Standard Description CPT-45071 Spec Collection and Handling Fee 10:00:31 CDT CPT-22038 Visit 10:00:30 CDT CPT-91022 Drug Screen Gr[place] 14:36:13 CDT
--- OUTSIDE RECORDS SUMMARY | 2018-08-28 06:15 | XMS REPORT | Clinical Summary ---
Author Author Admin, E Organization [facility] Address Unknown Phone Unavailable Allergies, Adverse Reactions, [...] condition or complication Trichomonal vaginitis 131.01 Resolved Rina Ortega MD Trichomonal vulvovaginitis Insect bite 919.4 [...] Active Rian Ortega MD Tobacco use disorder Protection Analyst well woman exam V72.31 Active Sasha Espitia [...] Overweight 278.02 Active Rian Ortega MD Overweight Health examination of defined subpopulations ICD-V70.5 Inactive [...] as needed for muscle spasm CYCLOBENZAPRINE HCL 81660012992 Active Rian Ortega MD Active SYMBICORT 160-4.5 MCG/ACT AERO 2 puff BID for 10 days BUDESONIDE-FORMOTEROL FUMARATE 84210596688 No Longer Active Rian Ortega MD Active GUAIFENESIN 600 MG CV12A-GLY 1 twice a day as needed for congestion GUAIFENESIN 57796790606 Active Jillina Estephania PÉREZ Active AZITHROMYCIN 250 MG TABS 2 po qd x 1 day, then 1 po qd x 4 days AZITHROMYCIN 52775243843 No Longer Active Carline Best APRN Active CIPRO 500 MG TAB 1 tablet by mouth twice daily CIPROFLOXACIN HCL 07049973158 No Longer Active Tariq Marrero MD Active AZO TABS TABS 2 tabs qd PHENAZOPYRIDINE HCL TABS 63942518261 No Longer Active Tariq Marrero MD Active CIPROFLOXACIN HCL 250 MG ORAL TABS 1 twice a day for bladder infection 07/24 CIPROFLOXACIN HCL 13514944795 No Longer Active Tariq Marrero MD Active SM VITAMIN B12 TR 1000 MCG ORAL CR-TABS 1 tab po daily CYANOCOBALAMIN 23953647077 No Longer Active Nereyda Michael CRYPTOGRAPHIC CLERK Active CARAFATE 1 GM TAB 1 tab po as needed up to 4 times per day SUCRALFATE 11339914820 No Longer Active Nereyda Rodriguez APRN Active PNV PLUS MULTIVITAMIN 27-1 MG ORAL TABS 1 daily VIT-FE FUMARATE-FA 39527547888 No Longer Active Sasha Espitia APRN Active CHANTIX STARTING MONTH DANILO 0.5 MG X 11 & 1 MG X 42 TABS take as directed 2015 VARENICLINE TARTRATE 07264731104 No Longer Active Sasha Espitia APRN Active CHANTIX 1 MG TABS 1 twice a day to help quit smoking VARENICLINE TARTRATE 89956114442 No Longer Active Sasha Espitia APRN Active OMEPRAZOLE 20 MG CPDR 1 tablet by mouth daily OMEPRAZOLE 68259713335 Active Sasha Espitia APRN Active FLINSTONES GUMMIES OMEGA-3 DHA ORAL CHEW 2 gummies per day PEDIATRIC MULTIPLE VIT-C-FA 63585063768 Active Sasah Espitia APRN Active CLINDAMYCIN HCL 150 MG CAPS 1 four times a day for 1 week CLINDAMYCIN HCL 96861825299 No Longer Active Karen Jaramillo MD Active TRIAMCINOLONE ACETONIDE 0.1 % CREA Apply to affected areas TID for up to 1 week TRIAMCINOLONE ACETONIDE 23060622684 No Longer Active Rian Ortega MD Active ZITHROMAX 1 GM ORAL PACK Take 1 time and recheck lab in 2-3 weeks AZITHROMYCIN 45452572096 No Longer Active Rian Ortega MD Active FLAGYL 500 MG TAB four tabs PO x 1 METRONIDAZOLE 16401776658 No Longer Active Aris Charlton MD Active FLAGYL 500 MG TAB four tabs PO x 1 FLAGYL 500 MG TAB 382703 METRONIDAZOLE Inactive ZITHROMAX 1 GM ORAL PACK Take 1 time and recheck lab in 2-3 weeks ZITHROMAX 1 GM ORAL PACK 673391 AZITHROMYCIN Inactive TRIAMCINOLONE ACETONIDE 0.1 % CREA Apply to affected areas TID for up to 1 week TRIAMCINOLONE ACETONIDE 0.1 % CREA 5722290 TRIAMCINOLONE ACETONIDE Inactive CLINDAMYCIN HCL 150 MG CAPS 1 four times a day for 1 week CLINDAMYCIN HCL 150 MG CAPS 299566 CLINDAMYCIN HCL Inactive CHANTIX 1 MG TABS [...] per day 06/27 CARAFATE 1 GM TAB 109672 SUCRALFATE Inactive SM VITAMIN B12 TR 1000 MCG ORAL CR-TABS 1 tab po daily 470 SM VITAMIN B12 TR 1000 MCG ORAL CR-TABS CYANOCOBALAMIN Inactive CIPROFLOXACIN HCL 250 MG ORAL TABS 1 twice a day for bladder infection 07/24 CIPROFLOXACIN HCL 250 MG ORAL TABS 128596 CIPROFLOXACIN HCL Inactive AZO TABS TABS 2 tabs qd AZO TABS TABS PHENAZOPYRIDINE HCL TABS Inactive SYMBICORT 160-4.5 MCG/ACT AERO 2 puff BID for 10 days SYMBICORT 160-4.5 MCG/ACT AERO BUDESONIDE-FORMOTEROL FUMARATE Inactive CIPRO 500 MG TAB 1 tablet by mouth twice daily CIPRO 500 MG TAB 906027 CIPROFLOXACIN HCL Inactive AZITHROMYCIN 250 MG TABS 2 po qd x 1 day, then 1 po qd x 4 days AZITHROMYCIN 250 MG TABS 486356 AZITHROMYCIN Inactive Immunizations Vaccine Administration Date Value [...] HGBA1C - Chemistry sodium, serum 142 mmol/L [phone] carbon dioxide, venous blood 32.8 mmol/L 21.0-32.0 [...] Panel - Chemistry cholesterol, serum 165 mg/dL [phone] triglyceride, serum, fasting 124 mg/dL 30-200 HDL [...] 30-100 Encounters Code Encounter Date Provider Facility CPT-74445 Level 3 Est. Patient 11:54:40 CDT Rian Ortega MD [facility] CPT-24827 Level 3 Est. Patient 11:17:51 CDT Carline Best [facility] CPT-19749 Level 3 Est. Patient 15:43:38 CDT Tariq Marrero MD [facility] CPT-87008 Level 3 Est. Patient 11:16:27 RECEPTIONIST CLERK Nereyda Rodriguez [facility] CPT-75652 Level 4 Est. Patient 08:56:42 RECEPTIONIST CLERK Sasha Espitia [facility] CPT-97792 Level 3 Est. Patient 16:40:58 CDT Rian Ortega MD [facility] CPT-74002 Level 3 Est. Patient 13:55:16 RECEPTIONIST CLERK Rian Ortega MD [facility] CPT-25295 Level 3 Est. Patient 10:42:52 CDT Corrina Bailon [facility] CPT-72505 Level 3 Est. Patient 11:18:30 CDT Aris Charlton MD [facility] Procedures Code Procedure Name Date Entry Date Standard Description CPT-10689 UA w micro - LAB USE ONLY 13:09:18 RECEPTIONIST CLERK CPT-69474 Urine Culture - LAB USE ONLY 13:09:18 RECEPTIONIST CLERK CPT-11021 Wet Mount - LAB USE ONLY 11:11:39 RECEPTIONIST CLERK CPT-33913 Lipid - LAB USE ONLY 15:05:24 RECEPTIONIST CLERK CPT-61397 PT/INR - LAB USE ONLY 12:14:07 CDT CPT-13329 HGBA1C - LAB USE ONLY 12:14:07 CDT CPT-48250 CMP - LAB USE ONLY 12:14:07 CDT CPT-61657 CBC - LAB USE ONLY 12:14:07 CDT CPT-34383 Venipuncture Draw Fee 12:14:06 CDT CPT-J0702 Celestone 6 mg (Betamethasone) 15:04:45 RECEPTIONIST CLERK CPT-92434 Abx/Therapy Injection 15:04:45 RECEPTIONIST CLERK CPT-J0702 Celestone 12 mg (Betamethasone) 11:45:31 RECEPTIONIST CLERK CPT-83394 Visit 11:39:52 RECEPTIONIST CLERK CPT-86556L Sono biophysical pro wo stress test-[place] Only 11:21: 42 RECEPTIONIST CLERK CPT-66198 Visit 16:00:50 RECEPTIONIST CLERK CPT-24480C Sono biophysical pro wo stress test[facility] Only 13:12: 18 RECEPTIONIST CLERK CPT-48341 Sono biophysical pro wo stress test 11:17:21 RECEPTIONIST CLERK 05/21 CPT-73788 Tdap 7yrs or > 15:22:51 RECEPTIONIST CLERK CPT-76683 Immunization Single Admin 15:22:51 RECEPTIONIST CLERK CPT-17451 Tdap 7yrs or > 15:09:13 RECEPTIONIST CLERK CPT-06404 Visit 14:54:16 RECEPTIONIST CLERK CPT-22804 Fluzone Quadrivalent Intramuscular Suspension 0.5 ML 16: 58:58 CDT CPT-23743 Administration single or combination vaccine inc oral 16 :58:58 CDT CPT-67903 Fluzone Thim Free 36mo and older 14:47:39 CDT CPT-87498 Visit 14:47:39 CDT CPT-27228 Sono OB limited 10:30:07 CDT CPT-11168 Visit 10:04:44 CDT CPT-72072 Sono OB comp > 14 weeks 12:50:41 CDT CPT-36180 Visit 12:06:25 CDT CPT-21234 Visit 12:43:15 CDT CPT-54912 Visit 10:06:02 CDT CPT-28687 Spec Collection and Handling Fee 10:00:31 CDT CPT-25934 Visit 10:00:30 CDT CPT-95924 Drug Screen Grisel 14:36:13 CDT
--- OUTSIDE RECORDS SUMMARY | 2018-08-28 06:16 | XMS REPORT | Clinical Summary ---
Author Author Admin, [facility] Organization [facility] Address Unknown Phone Unavailable Allergies, Adverse Reactions, [...] TAB four tabs PO x 1 METRONIDAZOLE 55727020478 Active Karen Jaramillo MD Active Diagnostic Results [...] % 11.0-15.0 platelet count 307 THOUSAND/UL 10*3/mm3 936-165 5098/05/26 mean platelet volume 8.9 fL 7.5-11.5 Lab [...] Procedure Name Date Entry Date Standard Description CPT-22957 Spec Collection and Handling Fee 10:00:31 CDT CPT-37800 Visit 10:00:30 CDT CPT-09729 Drug Screen [place] 14:36:13 CDT
--- OUTSIDE RECORDS SUMMARY | 2018-08-28 06:16 | XMS REPORT | Clinical Summary ---
Author Author Admin, [facility] Organization [facility] Address Unknown Phone Unavailable Allergies, Adverse Reactions, [...] Active Rian Ortega MD Tobacco use disorder Electronic Funds Transfer Coordinator well woman exam V72.31 Active Sasha Espitia [...] Inactive Rian Ortega MD Diarrhea ICD-787.91 Inactive Rina Ortega MD Nausea and vomiting ICD-787.01 Inactive [...] a day as needed for congestion GUAIFENESIN 47143570098 No Longer Active Sasha Espitia APRN Active CYCLOBENZAPRINE HCL 10 MG ORAL TABLET 1 three times a day as needed for muscle spasm CYCLOBENZAPRINE HCL 35700787108 No Longer Active Sasha Espitia APRN Active SYMBICORT 160-4.5 MCG/ACT INHALATION AEROSOL 2 puff BID for 10 days BUDESONIDE-FORMOTEROL FUMARATE 42014458575 No Longer Active Rian Ortega MD Active AZITHROMYCIN 250 MG ORAL TABLET 2 po qd x 1 day, then 1 po qd x 4 days 02/15 AZITHROMYCIN 05298138300 No Longer Active Carline Best APRN Active CIPRO 500 MG ORAL TABLET 1 tablet by mouth twice daily CIPROFLOXACIN HCL 69001532066 No Longer Active Tariq Marrero MD Active AZO TABS TABLET 2 tabs qd PHENAZOPYRIDINE HCL TABS 37732713030 No Longer Active Tariq Marrero MD Active CIPROFLOXACIN HCL 250 MG ORAL TABLET 1 twice a day for bladder infection 2016 CIPROFLOXACIN HCL 08214007761 No Longer Active Tariq Marrero MD Active SM VITAMIN B12 TR 1000 MCG ORAL TABLET EXTENDED RELEASE 1 tab po daily 04/24 CYANOCOBALAMIN 54077452555 No Longer Active Nereyda Rodriguez APRN Active CARAFATE 1 GM ORAL TABLET 1 tab po as needed up to 4 times per day SUCRALFATE 86045168223 No Longer Active Nereyda Rodriguez APRN Active PNV PLUS MULTIVITAMIN 27-1 MG ORAL TABLET 1 daily 04/24 VIT-FE FUMARATE-FA 06700668302 No Longer Active Sasha Espitia APRN Active CHANTIX STARTING MONTH DANILO 0.5 MG X 11 & 1 MG X 42 ORAL TABLET take as directed VARENICLINE TARTRATE 15342611696 No Longer Active Sasha Espitia APRN Active CHANTIX 1 MG ORAL TABLET 1 twice a day to help quit smoking 04/24 VARENICLINE TARTRATE 69208312048 No Longer Active Sasha Espitia APRN Active OMEPRAZOLE 20 MG ORAL CAPSULE DELAYED RELEASE 1 tablet by mouth daily OMEPRAZOLE 32241700338 Active Sasha Espitia APRN Active FLINSTONES GUMMIES OMEGA-3 DHA ORAL TABLET CHEWABLE 2 gummies per day PEDIATRIC MULTIPLE VIT-C-FA 54624743801 Active Sasha Espitia APRN Active CLINDAMYCIN HCL 150 MG ORAL CAPSULE 1 four times a day for 1 week CLINDAMYCIN HCL 20541284583 No Longer Active Karen Jaramillo MD Active TRIAMCINOLONE ACETONIDE 0.1 % EXTERNAL CREAM Apply to affected areas TID for up to 1 week TRIAMCINOLONE ACETONIDE 07313984910 No Longer Active Rian Ortega MD Active ZITHROMAX 1 GM ORAL PACKET Take 1 time and recheck lab in 2-3 weeks AZITHROMYCIN 38689443343 No Longer Active Rian Ortega MD Active FLAGYL 500 MG ORAL TABLET four tabs PO x 1 METRONIDAZOLE 17569179895 No Longer Active Aris Charlton MD Active FLAGYL 500 MG ORAL TABLET four tabs PO x 1 FLAGYL 500 MG ORAL TABLET 456478 METRONIDAZOLE Inactive ZITHROMAX 1 GM ORAL PACKET Take 1 time and recheck lab in 2-3 weeks ZITHROMAX 1 GM ORAL PACKET 336988 AZITHROMYCIN Inactive TRIAMCINOLONE ACETONIDE 0.1 % EXTERNAL CREAM Apply to affected areas TID for up to 1 week TRIAMCINOLONE ACETONIDE 0.1 % EXTERNAL CREAM 7377903 TRIAMCINOLONE ACETONIDE Inactive CLINDAMYCIN HCL 150 MG ORAL CAPSULE 1 four times a day for 1 week CLINDAMYCIN HCL 150 MG ORAL CAPSULE 412047 CLINDAMYCIN HCL Inactive CHANTIX 1 MG ORAL [...] per day CARAFATE 1 GM ORAL TABLET 118893 SUCRALFATE Inactive SM VITAMIN B12 TR 1000 MCG ORAL TABLET EXTENDED RELEASE 1 tab po daily 04/24 SM VITAMIN B12 TR 1000 MCG ORAL TABLET EXTENDED RELEASE CYANOCOBALAMIN Inactive CIPROFLOXACIN HCL 250 MG ORAL TABLET 1 twice a day for bladder infection 2016 CIPROFLOXACIN HCL 250 MG ORAL TABLET 737463 CIPROFLOXACIN HCL Inactive AZO TABS TABLET 2 tabs qd AZO TABS TABLET PHENAZOPYRIDINE HCL TABS Inactive SYMBICORT 160-4.5 MCG/ACT INHALATION AEROSOL 2 puff BID for 10 days SYMBICORT 160-4.5 MCG/ACT INHALATION AEROSOL BUDESONIDE- FORMOTEROL FUMARATE Inactive CYCLOBENZAPRINE HCL 10 MG ORAL TABLET 1 three times a day as needed for muscle spasm CYCLOBENZAPRINE HCL 10 MG ORAL TABLET 604760 CYCLOBENZAPRINE HCL Inactive GUAIFENESIN ER 600 MG ORAL TABLET EXTENDED RELEASE 12 HOUR 1 twice a day as needed for congestion GUAIFENESIN ER 600 MG ORAL TABLET EXTENDED RELEASE 12 HOUR GUAIFENESIN Inactive CIPRO 500 MG ORAL TABLET 1 tablet by mouth twice daily CIPRO 500 MG ORAL TABLET 131240 CIPROFLOXACIN HCL Inactive AZITHROMYCIN 250 MG ORAL TABLET 2 po qd x 1 day, then 1 po qd x 4 days 02/15 AZITHROMYCIN 250 MG ORAL TABLET 835670 AZITHROMYCIN Inactive Immunizations Vaccine Administration Date Value [...] ... - Chemistry cholesterol, serum 142 mg/dL 671-280 3152/10/24 triglyceride, serum, fasting 77 mg/dL 30-200 HDL [...] Panel - Chemistry sodium, serum 137 mmol/L 252-488 7978/10/24 carbon dioxide, venous blood 24.4 mmol/L 21.0-32.0 [...] 5.0-8.5 Encounters Code Encounter Date Provider Facility CPT-40937 Employment/ICC Exam 15:03:09 TAYE Espitia [facility] CPT-49579 Level 3 Est. Patient 11:54:40 CDT Rian Ortega MD [facility] CPT-94115 Level 3 Est. Patient 11:17:51 CDT Carline Best [facility] CPT-38744 Level 3 Est. Patient 15:43:38 CDT Tariq Marrero MD [facility] CPT-95983 Level 3 Est. Patient 11:16:27 PHARMACY TECHNOLOGY INSTRUCTOR Nereyda Rodriguez [facility] CPT-26586 Level 4 Est. Patient 08:56:42 PHARMACY TECHNOLOGY INSTRUCTOR Sasha Espitia [facility] CPT-27543 Level 3 Est. Patient 16:40:58 CDT Rian Ortega MD [facility] CPT-42502 Level 3 Est. Patient 13:55:16 PHARMACY TECHNOLOGY INSTRUCTOR Rian Ortega MD [facility] CPT-39899 Level 3 Est. Patient 10:42:52 CDT Corrina Garcianikita [facility] CPT-77685 Level 3 Est. Patient 11:18:30 CDT Aris Charlton MD [facility] Procedures Code Procedure Name Date Entry Date Standard Description CPT-55149 UA w micro - LAB USE ONLY 13:09:18 PHARMACY TECHNOLOGY INSTRUCTOR CPT-80601 Urine Culture - LAB USE ONLY 13:09:18 PHARMACY TECHNOLOGY INSTRUCTOR CPT-92253 Wet Mount - LAB USE ONLY 11:11:39 PHARMACY TECHNOLOGY INSTRUCTOR CPT-93182 Lipid - LAB USE ONLY 15:05:24 PHARMACY TECHNOLOGY INSTRUCTOR CPT-44638 PT/INR - LAB USE ONLY 12:14:07 CDT CPT-65902 HGBA1C - LAB USE ONLY 12:14:07 CDT CPT-71139 CMP - LAB USE ONLY 12:14:07 CDT CPT-12817 CBC - LAB USE ONLY 12:14:07 CDT CPT-43947 Venipuncture Draw Fee 12:14:06 CDT CPT-J0702 Celestone 6 mg (Betamethasone) 15:04:45 PHARMACY TECHNOLOGY INSTRUCTOR CPT-87852 Abx/Therapy Injection 15:04:45 PHARMACY TECHNOLOGY INSTRUCTOR CPT-J0702 Celestone 12 mg (Betamethasone) 11:45:31 PHARMACY TECHNOLOGY INSTRUCTOR CPT-80222 Visit 11:39:52 PHARMACY TECHNOLOGY INSTRUCTOR CPT-79206K Sono biophysical pro wo stress test-[facility] 11:21: 42 PHARMACY TECHNOLOGY INSTRUCTOR CPT-05436 Visit 16:00:50 PHARMACY TECHNOLOGY INSTRUCTOR CPT-85945J Sono biophysical pro wo stress test[facility] 13:12: 18 PHARMACY TECHNOLOGY INSTRUCTOR CPT-69196 Sono biophysical pro wo stress test 11:17:21 PHARMACY TECHNOLOGY INSTRUCTOR 05/21 CPT-74802 Tdap 7yrs or > 15:22:51 PHARMACY TECHNOLOGY INSTRUCTOR CPT-82281 Immunization Single Admin 15:22:51 PHARMACY TECHNOLOGY INSTRUCTOR CPT-71003 Tdap 7yrs or > 15:09:13 PHARMACY TECHNOLOGY INSTRUCTOR CPT-60399 Visit 14:54:16 PHARMACY TECHNOLOGY INSTRUCTOR CPT-03871 Fluzone Quadrivalent Intramuscular Suspension 0.5 ML 16: 58:58 CDT CPT-76422 Administration single or combination vaccine inc oral 16 :58:58 CDT CPT-87915 Fluzone Thim Free 36mo and older 14:47:39 CDT CPT-67672 Visit 14:47:39 CDT CPT-80975 Sono OB limited 10:30:07 CDT CPT-79474 Visit 10:04:44 CDT CPT-79629 Sono OB comp > 14 weeks 12:50:41 CDT CPT-16978 Visit 12:06:25 CDT CPT-93263 Visit 12:43:15 CDT CPT-72299 Visit 10:06:02 CDT CPT-92702 Spec Collection and Handling Fee 10:00:31 CDT CPT-74397 Visit 10:00:30 CDT CPT-32142 Drug Screen [place] 14:36:13 CDT
--- OUTSIDE RECORDS SUMMARY | 2018-08-28 06:16 | XMS REPORT | Clinical Summary ---
Author Author Admin, [facility] Organization [facility] Address Unknown Phone Unavailable Allergies, Adverse Reactions, [...] (adult) (pediatric) Cigarette smoker 305.1 Active Rian Ortgea MD Tobacco use disorder Parking Lot Supervisor well woman exam V72.31 Active Sasha Espitia WHEAT WASHER Routine gynecological examination Bariatric operative procedure V45.86 Active Mariely King RMRy Bariatric surgery status Supervision high risk , third trimester ICD-V23.9 10/31 Inactive Rian Ortega MD Advanced maternal age ICD-659.60 Inactive Rian Ortega MD Trichomonal vaginitis ICD-131.01 Inactive Rian Ortega MD Sexual activity, high risk ICD-V69.2 Inactive Rian Ortega MD Diarrhea ICD-787.91 Inactive Rian Ortega MD Nausea and vomiting ICD-787.01 Inactive Rian Ortega MD Obesity complicating , second trimester ICD-649.13 10/31 Inactive Rian Ortega MD Low lying placenta ICD-762.2 Inactive Rian Ortega MD 28 weeks gestation of ICD-V28.9 Inactive Rian Ortega MD Cellulitis ICD-682.9 Inactive Rian Ortega MD Abscess, skin ICD-682.9 Inactive Rian Ortega MD 30 weeks gestation of ICD-V28.9 Inactive Deepika Kunzty LRT 31 weeks gestation of ICD-V28.9 Inactive Deepika Alvarez LRT 29 weeks gestation of ICD-V28.9 Inactive Deepika Alvarez LRT 20 weeks gestation of ICD-V28.9 Inactive Deepika Kunzty LRT Supervision of elderly primigravida, second trimester ICD-V23.83 Inactive Karen Jaramillo MD Weight loss ICD-783.21 Inactive Karen Jaramillo MD 18 weeks gestation of ICD-V28.9 Inactive Karen Jaramillo MD Insect bite ICD-919.4 Inactive Karen Jaramillo MD Health examination of defined subpopulations ICD-V70.5 Inactive Karen Jaramillo MD Medication List Medication Instructions Start Date Stop Date Generic Name NDC Status Provider Patient Instruction PNV PLUS MULTIVITAMIN 27-1 MG ORAL TABS 1 daily VIT-FE FUMARATE-FA 22044731251 No Longer Active Sasha Espitia APRN Active CHANTIX STARTING MONTH DANILO 0.5 MG X 11 & 1 MG X 42 TABS take as directed 2015 VARENICLINE TARTRATE 48644584711 No Longer Active Sasha Espitia APRN Active CHANTIX 1 MG TABS 1 twice a day to help quit smoking VARENICLINE TARTRATE 04510306864 No Longer Active Sasha Omkar WHEAT WASHER Active OMEPRAZOLE 20 MG CPDR 1 tablet by mouth daily OMEPRAZOLE 14998496234 Active Sasha Espitia WHEAT WASHER Active CARAFATE 1 GM TAB 1 tab po as needed up to 4 times per day SUCRALFATE 96813877762 Active Sasha Espitia WHEAT WASHER Active FLINSTONES GUMMIES OMEGA-3 DHA ORAL CHEW 2 gummies per day PEDIATRIC MULTIPLE VIT-C-FA 14266883937 Active Sasha Espitia WHEAT WASHER Active SM VITAMIN B12 TR 1000 MCG ORAL CR-TABS 1 tab po daily CYANOCOBALAMIN 06408334817 Active Sasha Espitia BETO Active CLINDAMYCIN HCL 150 MG CAPS 1 four times a day for 1 week CLINDAMYCIN HCL 14538499261 No Longer Active Karen Jaramillo MD Active TRIAMCINOLONE ACETONIDE 0.1 % CREA Apply to affected areas TID for up to 1 week TRIAMCINOLONE ACETONIDE 70041258219 No Longer Active Rian Ortega MD Active ZITHROMAX 1 GM ORAL PACK Take 1 time and recheck lab in 2-3 weeks AZITHROMYCIN 95646642277 No Longer Active Rian Ortega MD Active FLAGYL 500 MG TAB four tabs PO x 1 METRONIDAZOLE 02292780846 No Longer Active Aris Charlton MD Active FLAGYL 500 MG TAB four tabs PO x 1 FLAGYL 500 MG TAB 099543 METRONIDAZOLE Inactive ZITHROMAX 1 GM ORAL PACK Take 1 time and recheck lab in 2-3 weeks ZITHROMAX 1 GM ORAL PACK 585637 AZITHROMYCIN Inactive TRIAMCINOLONE ACETONIDE 0.1 % CREA Apply to affected areas TID for up to 1 week TRIAMCINOLONE ACETONIDE 0.1 % CREA 3902360 TRIAMCINOLONE ACETONIDE Inactive CLINDAMYCIN HCL 150 MG CAPS 1 four times a day for 1 week CLINDAMYCIN HCL 150 MG CAPS 191652 CLINDAMYCIN HCL Inactive CHANTIX 1 MG TABS [...] serum NO ANTIBODIES DETECTED Lab Report: CBC, Thyroid Stimulating Hormone (L), [...] Panel - Chemistry cholesterol, serum 165 mg/dL [phone] triglyceride, serum, fasting 124 mg/dL 30-200 HDL cholesterol, serum 47 mg/dL 32-96 LDL cholesterol, serum 93 mg/dL 0-130 Office Visit: follow up ob - Urinalysis protein, urine, semiquantitative (dipstick) Tr glucose, urine, semiquantitative N nitrite, urine, semiquantitative N Encounters Code Encounter Date Provider Facility CPT-25594 Level 3 Est. Patient 16:40:58 CDT Rian Ortega [facility] CPT-84583 Level 3 Est. Patient 13:55:16 CLASSROOM TEACHER Rian Ortega MD [facility] CPT-93238 Level 3 Est. Patient 10:42:52 CDT Corrina Bailon APRN [facility] CPT-85695 Level 3 Est. Patient 11:18:30 CDT Aris Charlton MD [facility] Procedures Code Procedure Name Date Entry Date Standard Description CPT-47625 PT/INR - LAB USE ONLY 12:14:07 CDT CPT-06071 HGBA1C - LAB USE ONLY 12:14:07 CDT CPT-54553 CMP - LAB USE ONLY 12:14:07 CDT CPT-47432 CBC - LAB USE ONLY 12:14:07 CDT CPT-08187 Venipuncture Draw Fee 12:14:06 CDT CPT-J0702 Celestone 6 mg (Betamethasone) 15:04:45 CLASSROOM TEACHER CPT-92136 Abx/Therapy Injection 15:04:45 CLASSROOM TEACHER CPT-J0702 Celestone 12 mg (Betamethasone) 11:45:31 CLASSROOM TEACHER CPT-18569 Visit 11:39:52 CLASSROOM TEACHER CPT-44063A Sono biophysical pro wo stress test-[place] Only 11:21: 42 CLASSROOM TEACHER CPT-00918 Visit 16:00:50 CLASSROOM TEACHER CPT-98634Q Sono biophysical pro wo stress test-[place] Only 13:12: 18 CLASSROOM TEACHER CPT-43030 Sono biophysical pro wo stress test 11:17:21 CLASSROOM TEACHER 05/21 CPT-72454 Tdap 7yrs or > 15:22:51 CLASSROOM TEACHER CPT-79846 Immunization Single Admin 15:22:51 CLASSROOM TEACHER CPT-53193 Tdap 7yrs or > 15:09:13 CLASSROOM TEACHER CPT-31238 Visit 14:54:16 CLASSROOM TEACHER CPT-43625 Fluzone Quadrivalent Intramuscular Suspension 0.5 ML 16: 58:58 CDT CPT-25042 Administration single or combination vaccine inc oral 16 :58:58 CDT CPT-47307 Fluzone Thim Free 36mo and older 14:47:39 CDT CPT-88058 Visit 14:47:39 CDT CPT-22097 Sono OB limited 10:30:07 CDT CPT-94012 Visit 10:04:44 CDT CPT-03547 Sono OB comp > 14 weeks 12:50:41 CDT CPT-21225 Visit 12:06:25 CDT CPT-06079 Visit 12:43:15 CDT CPT-52731 Visit 10:06:02 CDT CPT-58166 Spec Collection and Handling Fee 10:00:31 CDT CPT-44666 Visit 10:00:30 CDT CPT-23233 Drug Screen [place] 14:36:13 CDT
--- OUTSIDE RECORDS SUMMARY | 2018-08-28 06:17 | XMS REPORT | Clinical Summary ---
Author Author Admin, E Organization [facility] Address Unknown Phone Unavailable Allergies, Adverse Reactions, [...] TAB four tabs PO x 1 METRONIDAZOLE 70756886533 Active Karen Jaramillo MD Active Immunizations Vaccine [...] % 11.0-15.0 platelet count 307 THOUSAND/UL 10*3/mm3 968-387 4084/05/26 mean platelet volume 8.9 fL 7.5-11.5 Blood [...] Lab Report: Thyroid Stimulating Hormone (L), Quant [facility] - Chemistry TSH 2.31 m[iU]/mL 0.36-3.74 Lab Report: [facility] [place] Chemistry human chorionic gonadotropin, urine, qualitative [...] Procedure Name Date Entry Date Standard Description CPT-06951 Spec Collection and Handling Fee 10:00:31 CDT CPT-71069 Visit 10:00:30 CDT CPT-83441 Drug Screen [place] 14:36:13 CDT
--- OUTSIDE RECORDS SUMMARY | 2018-08-28 06:17 | XMS REPORT | Clinical Summary ---
Author Author Admin, [facility] Organization [facility] Address Unknown Phone Unavailable Allergies, Adverse [...] TAB four tabs PO x 1 METRONIDAZOLE 18151619991 Active Karen Jaramillo MD Active Diagnostic Results Date Name Value Unit Range Description Lab Report: HGBA1C - Chemistry hemoglobin A1C, blood, as % of total hemoglobin 5.3 % 4.3-6.0 Lab Report: Thyroid Stimulating Hormone (L), Quant [facility] - Chemistry TSH 2.31 m[iU]/mL 0.36-3.74 Procedures Code Procedure Name Date Entry Date Standard Description CPT-91532 Spec Collection and Handling Fee 10:00:31 CDT CPT-12758 Visit 10:00:30 CDT CPT-74613 Drug Screen [place] 14:36:13 CDT
--- OUTSIDE RECORDS SUMMARY | 2018-08-28 06:17 | XMS REPORT | Clinical Summary ---
Author Author Admin, [facility] Organization [facility] Address Unknown Phone Unavailable Allergies, Adverse [...] of elderly primigravida, second trimester V23.83 Resolved Kaern Jaramillo MD Young primigravida Weight loss 783.21 [...] Active Rian Ortega MD Tobacco use disorder [employer] Attendant well woman exam V72.31 Active Sasha Espitia APRN Routine gynecological examination Bariatric operative procedure V45.86 Active Mariely Farolanda RMA Bariatric surgery status Physical examination V70.0 Active Sasha Espitia APRN Routine general medical examination at a health care facility Supervision high risk , third trimester ICD-V23.9 [...] lying placenta ICD-762.2 Inactive Rian Ortega MD Health examination of defined subpopulations ICD-V70.5 Inactive Karen Jaramillo MD 28 weeks gestation [...] MG ORAL TABS 1 daily VIT-FE FUMARATE-FA 28961486864 No Longer Active Sasha Espitia APRN Active CHANTIX STARTING MONTH DANILO 0.5 MG X 11 & 1 MG X 42 TABS take as directed 2015 VARENICLINE TARTRATE 44786461980 No Longer Active Sasha Espitia APRN Active CHANTIX 1 MG TABS 1 twice a day to help quit smoking VARENICLINE TARTRATE 47442821190 No Longer Active Sashashante Espitia APRN Active OMEPRAZOLE 20 MG CPDR 1 tablet by mouth daily OMEPRAZOLE 54222781051 Active Sasha Omakr PÉREZ Active CARAFATE 1 GM TAB 1 tab po as needed up to 4 times per day SUCRALFATE 55446648057 Active Sashashante Espitia APRN Active FLINSTONES GUMMIES OMEGA-3 DHA ORAL CHEW 2 gummies per day PEDIATRIC MULTIPLE VIT-C-FA 81138960317 Active Sasha Omkar PÉREZ Active SM VITAMIN B12 TR 1000 MCG ORAL CR-TABS 1 tab po daily CYANOCOBALAMIN 10502402441 Active Sashashante Espitia APRN Active CLINDAMYCIN HCL 150 MG CAPS 1 four times a day for 1 week CLINDAMYCIN HCL 23149631957 No Longer Active Karen Jaramillo MD Active TRIAMCINOLONE ACETONIDE 0.1 % CREA Apply to affected areas TID for up to 1 week TRIAMCINOLONE ACETONIDE 07924092825 No Longer Active Rian Ortega MD Active ZITHROMAX 1 GM ORAL PACK Take 1 time and recheck lab in 2-3 weeks AZITHROMYCIN 07318566306 No Longer Active Rian Ortega MD Active FLAGYL 500 MG TAB four tabs PO x 1 METRONIDAZOLE 68562443480 No Longer Active Aris Charlton MD Active FLAGYL 500 MG TAB four tabs PO x 1 FLAGYL 500 MG TAB 220367 METRONIDAZOLE Inactive ZITHROMAX 1 GM ORAL PACK Take 1 time and recheck lab in 2-3 weeks ZITHROMAX 1 GM ORAL PACK 026542 AZITHROMYCIN Inactive TRIAMCINOLONE ACETONIDE 0.1 % CREA Apply to affected areas TID for up to 1 week TRIAMCINOLONE ACETONIDE 0.1 % CREA 2297477 TRIAMCINOLONE ACETONIDE Inactive CLINDAMYCIN HCL 150 MG CAPS 1 four times a day for 1 week CLINDAMYCIN HCL 150 MG CAPS 474976 CLINDAMYCIN HCL Inactive CHANTIX 1 MG TABS [...] HGBA1C - Chemistry sodium, serum 142 mmol/L 837-055 5454 carbon dioxide, venous blood 32.8 mmol/L 21.0-32.0 [...] % 11.6-14.8 platelet count 302 10^3/MM^3 10*3/mm3 377-483 4923/11/18 hematocrit, blood 32.9 % 36.0-46.0 hemoglobin, blood 11.2 g/dL 12.0-16.0 erythrocyte (RBC) count 3.60 10^6/MM^3 10*6/mm3 4.04-5.48 leukocyte count, blood 11.7 10^3/MM^3 10*3/mm3 4.6-10.2 Lab Report: Lipid Panel - Chemistry cholesterol, serum 165 mg/dL 800-122 5432 triglyceride, serum, fasting 124 mg/dL 30-200 HDL [...] N Encounters Code Encounter Date Provider Facility CPT-07263 Level 4 Est. Patient 08:56:42 COMPUTER CONSULTANT Sasha Espitia [facility] CPT-45725 Level 3 Est. Patient 16:40:58 CDT Rian Ortega MD [facility] CPT-05593 Level 3 Est. Patient 13:55:16 COMPUTER CONSULTANT Rian Ortega MD [facility] CPT-17885 Level 3 Est. Patient 10:42:52 CDT Corrina Bailon [facility] CPT-87398 Level 3 Est. Patient 11:18:30 CDT Aris Charlton MD [facility] Procedures Code Procedure Name Date Entry Date Standard Description CPT-71677 Wet Mount - LAB USE ONLY 11:11:39 COMPUTER CONSULTANT CPT-12799 Lipid - LAB USE ONLY 15:05:24 COMPUTER CONSULTANT CPT-04463 PT/INR - LAB USE ONLY 12:14:07 CDT CPT-86533 HGBA1C - LAB USE ONLY 12:14:07 CDT CPT-87872 CMP - LAB USE ONLY 12:14:07 CDT CPT-66648 CBC - LAB USE ONLY 12:14:07 CDT CPT-29129 Venipuncture Draw Fee 12:14:06 CDT CPT-J0702 Celestone 6 mg (Betamethasone) 15:04:45 COMPUTER CONSULTANT CPT-97745 Abx/Therapy Injection 15:04:45 COMPUTER CONSULTANT CPT-J0702 Celestone 12 mg (Betamethasone) 11:45:31 COMPUTER CONSULTANT CPT-12569 Visit 11:39:52 COMPUTER CONSULTANT CPT-49581S Sono biophysical pro wo stress test-[place] Only 11:21: 42 COMPUTER CONSULTANT CPT-38970 Visit 16:00:50 COMPUTER CONSULTANT CPT-45499P Sono biophysical pro wo stress test-[place] Only 13:12: 18 COMPUTER CONSULTANT CPT-27942 Sono biophysical pro wo stress test 11:17:21 COMPUTER CONSULTANT 05/21 CPT-61354 Tdap 7yrs or > 15:22:51 COMPUTER CONSULTANT CPT-19003 Immunization Single Admin 15:22:51 COMPUTER CONSULTANT CPT-58276 Tdap 7yrs or > 15:09:13 COMPUTER CONSULTANT CPT-89128 Visit 14:54:16 COMPUTER CONSULTANT CPT-92022 Fluzone Quadrivalent Intramuscular Suspension 0.5 ML 16: 58:58 CDT CPT-77477 Administration single or combination vaccine inc oral 16 :58:58 CDT CPT-96068 Fluzone Thim Free 36mo and older 14:47:39 CDT CPT-44899 Visit 14:47:39 CDT CPT-27229 Sono OB limited 10:30:07 CDT CPT-33787 Visit 10:04:44 CDT CPT-87095 Sono OB comp > 14 weeks 12:50:41 CDT CPT-61244 Visit 12:06:25 CDT CPT-18476 Visit 12:43:15 CDT CPT-10951 Visit 10:06:02 CDT CPT-95516 Spec Collection and Handling Fee 10:00:31 CDT CPT-34393 Visit 10:00:30 CDT CPT-37721 Drug Screen Grisel 14:36:13 CDT
--- OUTSIDE RECORDS SUMMARY | 2018-08-28 06:17 | XMS REPORT | Clinical Summary ---
Author Author Admin, E Organization [facility] Address Unknown Phone Unavailable Allergies, Adverse Reactions, Alerts Allergy Name Reaction Description Start Date Severity Status Provider No Known Allergies Carolina Mayfield LPN Conditions or Problems Problem Name Problem [...] and recheck lab in 2-3 weeks AZITHROMYCIN 13490436903 Active Carolina Mayfield LPN Active TRIAMCINOLONE ACETONIDE 0.1 % CREA Apply to affected areas TID for up to 1 week TRIAMCINOLONE ACETONIDE 10711299885 Active Aris Charlton MD Active PNV PLUS MULTIVITAMIN 27-1 MG ORAL TABS 1 daily VIT-FE FUMARATE-FA 99728113323 Active Aris Charlton MD Active FLAGYL 500 MG TAB four tabs PO x 1 METRONIDAZOLE 94663046884 No Longer Active Aris Charlton MD Active FLAGYL 500 MG TAB four tabs PO x 1 FLAGYL 500 MG TAB 797693 METRONIDAZOLE Inactive Immunizations Vaccine Administration Date Value [...] % 11.0-15.0 platelet count 307 THOUSAND/UL 10*3/mm3 546-516 0390/05/26 mean platelet volume 8.9 fL 7.5-11.5 Blood [...] antibody, serum, IgG 2.66 Lab Report: Chlamydia/GC APTIMA/21390 - Lab chlamydia DNA probe DETECTED NOT DETECTED Lab Report: Chlamydia/GC APTIMA/82562 - Microbiology Neisseria gonorrhoeae DNA probe NOT DETECTED NOT DETECTED Lab Report: HGBA1C - Chemistry hemoglobin A1C, blood, as % of total hemoglobin 5.3 % 4.3-6.0 Lab Report: Thyroid Stimulating Hormone (L), Quant [facility] - Chemistry TSH 2.31 m[iU]/mL 0.36-3.74 Lab Report: [facility] [place] - Chemistry human chorionic gonadotropin, urine, qualitative [...] UC Encounters Code Encounter Date Provider Facility CPT-18718 Level 3 Est. Patient 10:42:52 CDT Corrina Bailon APRN [facility] CPT-32066 Level 3 Est. Patient 11:18:30 CDT Aris Charlton MD [facility] Procedures Code Procedure Name Date Entry Date Standard Description CPT-63661 Spec Collection and Handling Fee 10:00:31 CDT CPT-48831 Visit 10:00:30 CDT CPT-30966 Drug Screen Grisel 14:36:13 CDT
--- OUTSIDE RECORDS SUMMARY | 2018-08-28 06:18 | XMS REPORT | Clinical Summary ---
Author Author Admin, E Organization [facility] Address Unknown Phone Unavailable Allergies, Adverse Reactions, Alerts Allergy Name Reaction Description Start Date Severity Status Provider No Known Allergies [facility] Conditions or Problems Problem Name Problem Code [...] for up to 1 week TRIAMCINOLONE ACETONIDE 53888464537 Active Aris Charlton MD Active PNV PLUS MULTIVITAMIN 27-1 MG ORAL TABS 1 daily VIT-FE FUMARATE-FA 05705468372 Active Aris Charlton MD Active FLAGYL 500 MG TAB four tabs PO x 1 METRONIDAZOLE 27683306503 No Longer Active Aris Charlton MD Active FLAGYL 500 MG TAB four tabs PO x 1 FLAGYL 500 MG TAB 717147 METRONIDAZOLE Inactive Immunizations Vaccine Administration Date Value [...] % 11.0-15.0 platelet count 307 THOUSAND/UL 10*3/mm3 279-399 9346/05/26 mean platelet volume 8.9 fL 7.5-11.5 Blood [...] Lab Report: Thyroid Stimulating Hormone (L), Quant [facility] [place] Chemistry TSH 2.31 m[iU]/mL 0.36-3.74 Lab Report: [facility] [place] Chemistry human chorionic gonadotropin, urine, qualitative [...] UC Encounters Code Encounter Date Provider Facility CPT-78335 Level 3 Est. Patient 10:42:52 CDT Corrinagodfrey Bailon APRN [facility] CPT-88843 Level 3 Est. Patient 11:18:30 CDT Aris Charlton MD [facility] Procedures Code Procedure Name Date Entry Date Standard Description CPT-42683 Spec Collection and Handling Fee 10:00:31 CDT CPT-52100 Visit 10:00:30 CDT CPT-37502 Drug Screen Grisel 14:36:13 CDT
--- OUTSIDE RECORDS SUMMARY | 2018-08-28 06:18 | XMS REPORT | Clinical Summary ---
Author Author Admin, E Organization [facility] Address Unknown Phone Unavailable Allergies, Adverse [...] condition or complication 654.23 11/20 Active Karen Jaraimllo MD Previous section, antepartum condition or complication [...] and recheck lab in 2-3 weeks AZITHROMYCIN 08201156886 Active Carolina Mayfield LPN Active TRIAMCINOLONE ACETONIDE 0.1 % CREA Apply to affected areas TID for up to 1 week TRIAMCINOLONE ACETONIDE 29993607049 Active Aris Charlton MD Active PNV PLUS MULTIVITAMIN 27-1 MG ORAL TABS 1 daily VIT-FE FUMARATE-FA 75299281175 Active Aris Charlton MD Active FLAGYL 500 MG TAB four tabs PO x 1 METRONIDAZOLE 32523412817 No Longer Active Aris Charlton MD Active FLAGYL 500 MG TAB four tabs PO x 1 FLAGYL 500 MG TAB 609709 METRONIDAZOLE Inactive Immunizations Vaccine Administration Date Value [...] % 11.0-15.0 platelet count 307 THOUSAND/UL 10*3/mm3 272-126 7992/05/26 mean platelet volume 8.9 fL 7.5-11.5 Blood [...] antibody, serum, IgG 2.66 Lab Report: Chlamydia/GC APTIMA/21064 - Lab chlamydia DNA probe DETECTED NOT DETECTED chlamydia DNA probe NOT DETECTED NOT DETECTED Lab Report: Chlamydia/GC APTIMA/82980 - Microbiology Neisseria gonorrhoeae DNA probe NOT DETECTED NOT DETECTED Neisseria gonorrhoeae DNA probe NOT DETECTED NOT DETECTED Lab Report: HGBA1C - Chemistry hemoglobin A1C, blood, as % of total hemoglobin 5.3 % 4.3-6.0 Lab Report: Thyroid Stimulating Hormone (L), Quant [facility] - Chemistry TSH 2.31 m[iU]/mL 0.36-3.74 Lab [...] pH, urine, semiquantitative 7.0 5.0-8.5 Lab Report: [facility] - Chemistry human chorionic gonadotropin, urine, qualitative [...] N Encounters Code Encounter Date Provider Facility CPT-31317 Level 3 Est. Patient 10:42:52 CDT Corrina Bailon APRN [facility] CPT-22896 Level 3 Est. Patient 11:18:30 CDT Aris Charlton MD [facility] Procedures Code Procedure Name Date Entry Date Standard Description CPT-15940 Visit 10:06:02 CDT CPT-59412 Spec Collection and Handling Fee 10:00:31 CDT CPT-24743 Visit 10:00:30 CDT CPT-09869 Drug Screen [place]isel 14:36:13 CDT
--- OUTSIDE RECORDS SUMMARY | 2018-08-28 06:18 | XMS REPORT | Clinical Summary ---
Author Author Admin, E Organization [facility] Address Unknown Phone Unavailable Allergies, Adverse Reactions, [...] or not applicable Trichomonal vaginitis 131.01 Active aKren Jaramillo MD Trichomonal vulvovaginitis Medication List Medication Instructions Start Date Stop Date Generic Name NDC Status Provider Patient Instruction FLAGYL 500 MG TAB four tabs PO x 1 METRONIDAZOLE 47580535596 Active Karen Jaramillo MD Active Procedures Code Procedure Name Date Entry Date Standard Description CPT-57951 Spec Collection and Handling Fee 10:00:31 CDT CPT-12732 Visit 10:00:30 CDT CPT-42621 Drug Screen [place]isel 14:36:13 CDT
--- OUTSIDE RECORDS SUMMARY | 2018-08-28 06:19 | XMS REPORT | Clinical Summary ---
Author Author Admin, E Organization [facility] Address Unknown Phone Unavailable Allergies, Adverse Reactions, [...] Active Rian Ortega MD Tobacco use disorder [place] well woman exam V72.31 Active Sasha Tan [...] Active Tariq Marrero MD Acute sinusitis, unspecified Supervision high risk , third trimester ICD-V23.9 10/31 Inactive Rian Ortega MD Advanced maternal age ICD-659.60 Inactive Rian Ortega MD Health examination of defined subpopulations ICD-V70.5 Inactive Karen Jaramillo MD Trichomonal vaginitis ICD-131.01 Inactive Rian Ortega [...] Dysuria ICD-788.1 Inactive Rian Ortega MD 03/29 Vaginal bleeding, second trimester ICD-641.93 Inactive Rian Ortega MD Myalgias ICD-729.1 Inactive Tariq Marrero MD Bronchitis ICD-490 Inactive Rian Ortega MD 2016 Medication List Medication Instructions Start Date Stop Date Generic Name NDC Status Provider Patient Instruction AMOXICILLIN 500 MG ORAL CAPSULE 1 cap by mouth three times a day AMOXICILLIN 29310756139 No Longer Active Tariq Marrero MD Active BACTRIM DS 800-160 MG ORAL TABLET 1 twice a day SULFAMETHOXAZOLE-TRIMETHOPRIM 77909033381 No Longer Active Irma Michaels Active ZITHROMAX Z-DANILO 250 MG ORAL TABLET 2 today, then 1 daily for 4 days AZITHROMYCIN 42230615172 No Longer Active Mahsa Alvarez Active AZITHROMYCIN 250 MG ORAL TABLET 2 po qd x 1 day, then 1 po qd x 4 days 07/27 AZITHROMYCIN 95809257589 No Longer Active Carline Best APRN Active GUAIFENESIN ER 600 MG ORAL TABLET EXTENDED RELEASE 12 HOUR 1 twice a day as needed for congestion GUAIFENESIN 24317921010 No Longer Active Sasha Tan APRN Active CYCLOBENZAPRINE HCL 10 MG ORAL TABLET 1 three times a day as needed for muscle spasm CYCLOBENZAPRINE HCL 47700898404 No Longer Active Sasha Tan APRN Active SYMBICORT 160-4.5 MCG/ACT INHALATION AEROSOL 2 puff BID for 10 days BUDESONIDE-FORMOTEROL FUMARATE 35475667890 No Longer Active Rian Ortega MD Active AZITHROMYCIN 250 MG ORAL TABLET 2 po qd x 1 day, then 1 po qd x 4 days 02/15 AZITHROMYCIN 26595134822 No Longer Active Carline Best APRN Active CIPRO 500 MG ORAL TABLET 1 tablet by mouth twice daily CIPROFLOXACIN HCL 63685093386 No Longer Active Tariq Marrero MD Active AZO TABS TABLET 2 tabs qd PHENAZOPYRIDINE HCL TABS 90336786988 No Longer Active Tariq Marrero MD Active CIPROFLOXACIN HCL 250 MG ORAL TABLET 1 twice a day for bladder infection 2016 CIPROFLOXACIN HCL 46733775544 No Longer Active Tariq Marrero MD Active SM VITAMIN B12 TR 1000 MCG ORAL TABLET EXTENDED RELEASE 1 tab po daily 04/24 CYANOCOBALAMIN 47570506857 No Longer Active Nereyda Rodriguez APRN Active CARAFATE 1 GM ORAL TABLET 1 tab po as needed up to 4 times per day SUCRALFATE 92024506593 No Longer Active Nereyda Rodriguez APRN Active PNV PLUS MULTIVITAMIN 27-1 MG ORAL TABLET 1 daily 04/24 VIT-FE FUMARATE-FA 11690210056 No Longer Active Sasha Tan APRN Active CHANTIX STARTING MONTH DANILO 0.5 MG X 11 & 1 MG X 42 ORAL TABLET take as directed VARENICLINE TARTRATE 27265847980 No Longer Active Sasha Tan APRN Active CHANTIX 1 MG ORAL TABLET 1 twice a day to help quit smoking 04/24 VARENICLINE TARTRATE 33254837190 No Longer Active Sasha Tan APRN Active OMEPRAZOLE 20 MG ORAL CAPSULE DELAYED RELEASE 1 tablet by mouth daily OMEPRAZOLE 11509352628 Active Sasha Tan APRN Active FLINSTONES GUMMIES OMEGA-3 DHA ORAL TABLET CHEWABLE 2 gummies per day PEDIATRIC MULTIPLE VIT-C-FA 31605055381 Active Sasha Tan APRN Active CLINDAMYCIN HCL 150 MG ORAL CAPSULE 1 four times a day for 1 week CLINDAMYCIN HCL 78963662086 No Longer Active Karen Jaramillo MD Active TRIAMCINOLONE ACETONIDE 0.1 % EXTERNAL CREAM Apply to affected areas TID for up to 1 week TRIAMCINOLONE ACETONIDE 83654833368 No Longer Active Rian Ortega MD Active ZITHROMAX 1 GM ORAL PACKET Take 1 time and recheck lab in 2-3 weeks AZITHROMYCIN 68140630115 No Longer Active Rian Ortega MD Active FLAGYL 500 MG ORAL TABLET four tabs PO x 1 METRONIDAZOLE 77795561115 No Longer Active Aris Charlton MD Active FLAGYL 500 MG ORAL TABLET four tabs PO x 1 FLAGYL 500 MG ORAL TABLET 363012 METRONIDAZOLE Inactive ZITHROMAX 1 GM ORAL PACKET Take 1 time and recheck lab in 2-3 weeks ZITHROMAX 1 GM ORAL PACKET 060279 AZITHROMYCIN Inactive TRIAMCINOLONE ACETONIDE 0.1 % EXTERNAL CREAM Apply to affected areas TID for up to 1 week TRIAMCINOLONE ACETONIDE 0.1 % EXTERNAL CREAM 8170283 TRIAMCINOLONE ACETONIDE Inactive CLINDAMYCIN HCL 150 MG ORAL CAPSULE 1 four times a day for 1 week CLINDAMYCIN HCL 150 MG ORAL CAPSULE 269357 CLINDAMYCIN HCL Inactive CHANTIX 1 MG ORAL [...] per day CARAFATE 1 GM ORAL TABLET 608008 SUCRALFATE Inactive SM VITAMIN B12 TR 1000 MCG ORAL TABLET EXTENDED RELEASE 1 tab po daily 04/24 SM VITAMIN B12 TR 1000 MCG ORAL TABLET EXTENDED RELEASE CYANOCOBALAMIN Inactive CIPROFLOXACIN HCL 250 MG ORAL TABLET 1 twice a day for bladder infection 2016 CIPROFLOXACIN HCL 250 MG ORAL TABLET 667654 CIPROFLOXACIN HCL Inactive AZO TABS TABLET 2 tabs qd AZO TABS TABLET PHENAZOPYRIDINE HCL TABS Inactive SYMBICORT 160-4.5 MCG/ACT INHALATION AEROSOL 2 puff BID for 10 days SYMBICORT 160-4.5 MCG/ACT INHALATION AEROSOL BUDESONIDE- FORMOTEROL FUMARATE Inactive CYCLOBENZAPRINE HCL 10 MG ORAL TABLET 1 three times a day as needed for muscle spasm CYCLOBENZAPRINE HCL 10 MG ORAL TABLET 854358 CYCLOBENZAPRINE HCL Inactive GUAIFENESIN ER 600 MG ORAL TABLET EXTENDED RELEASE 12 HOUR 1 twice a day as needed for congestion GUAIFENESIN ER 600 MG ORAL TABLET EXTENDED RELEASE 12 HOUR GUAIFENESIN Inactive BACTRIM DS 800-160 MG ORAL TABLET 1 twice a day BACTRIM DS 800-160 MG ORAL TABLET 046431 SULFAMETHOXAZOLE-TRIMETHOPRIM Inactive CIPRO 500 MG ORAL TABLET 1 tablet by mouth twice daily CIPRO 500 MG ORAL TABLET 993198 CIPROFLOXACIN HCL Inactive AZITHROMYCIN 250 MG ORAL TABLET 2 po qd x 1 day, then 1 po qd x 4 days 02/15 AZITHROMYCIN 250 MG ORAL TABLET 060063 AZITHROMYCIN Inactive AZITHROMYCIN 250 MG ORAL TABLET 2 po qd x 1 day, then 1 po qd x 4 days 07/27 AZITHROMYCIN 250 MG ORAL TABLET 455867 AZITHROMYCIN Inactive ZITHROMAX Z-DANILO 250 MG ORAL TABLET 2 today, then 1 daily for 4 days ZITHROMAX Z-DANILO 250 MG ORAL TABLET 232575 AZITHROMYCIN Inactive AMOXICILLIN 500 MG ORAL CAPSULE 1 cap by mouth three times a day AMOXICILLIN 500 MG ORAL CAPSULE 226189 AMOXICILLIN Inactive Immunizations Vaccine Administration Date Value [...] temperature weight E&M 159 [lb_av] Weight Measured Diagnostic Results Date Name Value Unit Range Description Immunizations: TB Skin Test - Challenge tests PPD results in mm 0 mm Lab Report: CBC W/DIFF - Hematology leukocyte count, blood sent to [facility] 10^3/mm^3 10*3/mm3 4.6-10.2 Lab Report: CBC, Lipid Panel, Thyroid Stimulating Hormone (L), Free Thyr ... - Chemistry cholesterol, serum 142 mg/dL 309-214 3210/10/24 triglyceride, serum, fasting 77 mg/dL 30-200 HDL cholesterol, serum 62 mg/dL 32-60 LDL cholesterol, serum 65 mg/dL 0-130 TSH 1.48 m[iU]/mL 0.36-3.74 thyroxine, serum, free 0.94 ng/dL 0.59-1.17 hemoglobin A1C, blood, as % of total hemoglobin 5.0 % 4.3-6.0 Lab Report: CBC, Lipid Panel, Thyroid Stimulating Hormone (L), Free Thyr ... - Hematology mean corpuscular volume, RBC 90 fL 80-97 mean corpuscular hemoglobin, RBC 29.5 pg 27.0-31.2 mean corpuscular hemoglobin concentration, RBC 32.7 G/DL % 31.8- 35.4 red blood cell distribution width 14.3 % 11.6-14.8 platelet count 291 10^3/MM^3 10*3/mm3 601-975 0217/10/24 hematocrit, blood 40.6 % 37.0-47.0 hemoglobin, blood 13.3 g/dL 12.0-16.0 erythrocyte (RBC) count 4.51 10^6/MM^3 10*6/mm3 3.80-5.80 leukocyte count, blood 6.9 10^3/MM^3 10*3/mm3 4.6-10.2 Lab Report: Comp. Metabolic Panel - Chemistry sodium, serum 137 mmol/L 787-803 2440/10/24 carbon dioxide, venous blood 24.4 mmol/L 21.0-32.0 [...] 1+ Encounters Code Encounter Date Provider Facility CPT-02185 Level 3 Est. Patient 16:49:52 CDT Rian Ortega MD [facility] CPT-68322 [id number] Vst-Est Level III 16:46:54 CDT Tariq Marrero MD [facility] CPT-71967 Level 3 Est. Patient 14:41:20 CDT Tariq Marrero MD [facility] CPT-32288 Level 3 Est. Patient 11:06:09 FREEZING MACHINE OPERATOR Carline Best [facility] CPT-15939 Level 3 Est. Patient 15:59:13 FREEZING MACHINE OPERATOR Carline Best [facility] CPT-74905 Employment/ICC Exam 15:03:09 FREEZING MACHINE OPERATOR Sasha Tan [facility] CPT-14499 Level 3 Est. Patient 11:54:40 CDT Rian Ortega MD [facility] CPT-25442 Level 3 Est. Patient 11:17:51 CDT Carline Best [facility] CPT-84195 Level 3 Est. Patient 15:43:38 CDT Tariq Marrero MD [facility] CPT-70171 Level 3 Est. Patient 11:16:27 FREEZING MACHINE OPERATOR Nereyda Rodriguez [facility] CPT-94648 Level 4 Est. Patient 08:56:42 FREEZING MACHINE OPERATOR Sasha Tan [facility] CPT-95794 Level 3 Est. Patient 16:40:58 CDT Rian Ortega MD [facility] CPT-96349 Level 3 Est. Patient 13:55:16 FREEZING MACHINE OPERATOR Rian Ortega MD [facility] CPT-64950 Level 3 Est. Patient 10:42:52 CDT Corrina Bailon [facility] CPT-99861 Level 3 Est. Patient 11:18:30 CDT Aris Charlton MD [facility] Procedures Code Procedure Name Date Entry Date Standard Description CPT-89242 Prv Med Est Pt 40-64yrs 16:49:40 CDT CPT-28973 UA w micro - LAB USE ONLY 13:09:18 FREEZING MACHINE OPERATOR CPT-05586 Urine Culture - LAB USE ONLY 13:09:18 FREEZING MACHINE OPERATOR CPT-00988 Wet Mount - LAB USE ONLY 11:11:39 FREEZING MACHINE OPERATOR CPT-72406 Lipid - LAB USE ONLY 15:05:24 FREEZING MACHINE OPERATOR CPT-90998 PT/INR - LAB USE ONLY 12:14:07 CDT CPT-66266 HGBA1C - LAB USE ONLY 12:14:07 CDT CPT-43179 CMP - LAB USE ONLY 12:14:07 CDT CPT-63491 CBC - LAB USE ONLY 12:14:07 CDT CPT-17914 Venipuncture Draw Fee 12:14:06 CDT CPT-J0702 Celestone 6 mg (Betamethasone) 15:04:45 FREEZING MACHINE OPERATOR CPT-40021 Abx/Therapy Injection 15:04:45 FREEZING MACHINE OPERATOR CPT-J0702 Celestone 12 mg (Betamethasone) 11:45:31 FREEZING MACHINE OPERATOR CPT-67653 Visit 11:39:52 FREEZING MACHINE OPERATOR CPT-32018U Sono biophysical pro wo stress test-[facility] 11:21: 42 FREEZING MACHINE OPERATOR CPT-76780 Visit 16:00:50 FREEZING MACHINE OPERATOR CPT-71722H Sono biophysical pro wo stress test-[facility] 13:12: 18 FREEZING MACHINE OPERATOR CPT-69403 Sono biophysical pro wo stress test 11:17:21 FREEZING MACHINE OPERATOR 05/21 CPT-16568 Tdap 7yrs or > 15:22:51 FREEZING MACHINE OPERATOR CPT-95198 Immunization Single Admin 15:22:51 FREEZING MACHINE OPERATOR CPT-75556 Tdap 7yrs or > 15:09:13 FREEZING MACHINE OPERATOR CPT-89187 Visit 14:54:16 FREEZING MACHINE OPERATOR CPT-07794 Fluzone Quadrivalent Intramuscular Suspension 0.5 ML 16: 58:58 CDT CPT-67062 Administration single or combination vaccine inc oral 16 :58:58 CDT CPT-94019 Fluzone Thim Free 36mo and older 14:47:39 CDT CPT-30466 Visit 14:47:39 CDT CPT-19434 Sono OB limited 10:30:07 CDT CPT-42442 Visit 10:04:44 CDT CPT-84372 Sono OB comp > 14 weeks 12:50:41 CDT CPT-71012 Visit 12:06:25 CDT CPT-06858 Visit 12:43:15 CDT CPT-28947 Visit 10:06:02 CDT CPT-05458 Spec Collection and Handling Fee 10:00:31 CDT CPT-45014 Visit 10:00:30 CDT CPT-71865 Drug Screen Grisel 14:36:13 CDT
--- OUTSIDE RECORDS SUMMARY | 2018-08-28 06:19 | XMS REPORT | Clinical Summary ---
Author Author Admin, E Organization [facility] Address Unknown Phone Unavailable Allergies, Adverse Reactions, [...] obesity Obstructive sleep apnea 327.23 Active Rian rOtega MD Obstructive sleep apnea (adult) (pediatric) Cigarette smoker 305.1 Active Rian Ortega MD Tobacco use disorder Grain Blender well woman exam V72.31 Active Sasha Tan [...] by mouth three times a day AMOXICILLIN 04030781944 No Longer Active Tariq Marrero MD Active BACTRIM DS 800-160 MG ORAL TABLET 1 twice a day SULFAMETHOXAZOLE-TRIMETHOPRIM 98424456736 No Longer Active Irma Michaels Active ZITHROMAX Z-DANILO 250 MG ORAL TABLET 2 today, then 1 daily for 4 days AZITHROMYCIN 02182766724 No Longer Active Mahsa Alvarez Active AZITHROMYCIN 250 MG ORAL TABLET 2 po qd x 1 day, then 1 po qd x 4 days 07/27 AZITHROMYCIN 44929524470 No Longer Active Carline Best APRN Active GUAIFENESIN ER 600 MG ORAL TABLET EXTENDED RELEASE 12 HOUR 1 twice a day as needed for congestion GUAIFENESIN 14159403582 No Longer Active Sasha Tan APRN Active CYCLOBENZAPRINE HCL 10 MG ORAL TABLET 1 three times a day as needed for muscle spasm CYCLOBENZAPRINE HCL 13630108697 No Longer Active Sasha Tan APRN Active SYMBICORT 160-4.5 MCG/ACT INHALATION AEROSOL 2 puff BID for 10 days BUDESONIDE-FORMOTEROL FUMARATE 37861955078 No Longer Active Rian Ortega MD Active AZITHROMYCIN 250 MG ORAL TABLET 2 po qd x 1 day, then 1 po qd x 4 days 02/15 AZITHROMYCIN 50908055127 No Longer Active Carline Best APRN Active CIPRO 500 MG ORAL TABLET 1 tablet by mouth twice daily CIPROFLOXACIN HCL 67743717752 No Longer Active Tariq Marrero MD Active AZO TABS TABLET 2 tabs qd PHENAZOPYRIDINE HCL TABS 67793789112 No Longer Active Tariq Marrero MD Active CIPROFLOXACIN HCL 250 MG ORAL TABLET 1 twice a day for bladder infection 2016 CIPROFLOXACIN HCL 49736038633 No Longer Active Tariq Marrero MD Active SM VITAMIN B12 TR 1000 MCG ORAL TABLET EXTENDED RELEASE 1 tab po daily 04/24 CYANOCOBALAMIN 93867688636 No Longer Active Nereyda Rodriguez APRN Active CARAFATE 1 GM ORAL TABLET 1 tab po as needed up to 4 times per day SUCRALFATE 48831413337 No Longer Active Nereyda Rodriguez APRN Active PNV PLUS MULTIVITAMIN 27-1 MG ORAL TABLET 1 daily 04/24 VIT-FE FUMARATE-FA 07671794993 No Longer Active Sasha Tan APRN Active CHANTIX STARTING MONTH DANILO 0.5 MG X 11 & 1 MG X 42 ORAL TABLET take as directed VARENICLINE TARTRATE 84232653207 No Longer Active Sasha Tan APRN Active CHANTIX 1 MG ORAL TABLET 1 twice a day to help quit smoking 04/24 VARENICLINE TARTRATE 07124032217 No Longer Active Sasha Tan APRN Active OMEPRAZOLE 20 MG ORAL CAPSULE DELAYED RELEASE 1 tablet by mouth daily OMEPRAZOLE 90252218381 Active Sasha Tan APRN Active FLINSTONES GUMMIES OMEGA-3 DHA ORAL TABLET CHEWABLE 2 gummies per day PEDIATRIC MULTIPLE VIT-C-FA 10073288671 Active Sasha Tan APRN Active CLINDAMYCIN HCL 150 MG ORAL CAPSULE 1 four times a day for 1 week CLINDAMYCIN HCL 39340573694 No Longer Active Karen Jaramillo MD Active TRIAMCINOLONE ACETONIDE 0.1 % EXTERNAL CREAM Apply to affected areas TID for up to 1 week TRIAMCINOLONE ACETONIDE 04888683452 No Longer Active Rian Ortega MD Active ZITHROMAX 1 GM ORAL PACKET Take 1 time and recheck lab in 2-3 weeks AZITHROMYCIN 04525708606 No Longer Active Rian Ortega MD Active FLAGYL 500 MG ORAL TABLET four tabs PO x 1 METRONIDAZOLE 01373687255 No Longer Active Aris Charlton MD Active FLAGYL 500 MG ORAL TABLET four tabs PO x 1 FLAGYL 500 MG ORAL TABLET 397570 METRONIDAZOLE Inactive ZITHROMAX 1 GM ORAL PACKET Take 1 time and recheck lab in 2-3 weeks ZITHROMAX 1 GM ORAL PACKET 928404 AZITHROMYCIN Inactive TRIAMCINOLONE ACETONIDE 0.1 % EXTERNAL CREAM Apply to affected areas TID for up to 1 week TRIAMCINOLONE ACETONIDE 0.1 % EXTERNAL CREAM 4771022 TRIAMCINOLONE ACETONIDE Inactive CLINDAMYCIN HCL 150 MG ORAL CAPSULE 1 four times a day for 1 week CLINDAMYCIN HCL 150 MG ORAL CAPSULE 989727 CLINDAMYCIN HCL Inactive CHANTIX 1 MG ORAL [...] per day CARAFATE 1 GM ORAL TABLET 078780 SUCRALFATE Inactive SM VITAMIN B12 TR 1000 MCG ORAL TABLET EXTENDED RELEASE 1 tab po daily 04/24 SM VITAMIN B12 TR 1000 MCG ORAL TABLET EXTENDED RELEASE CYANOCOBALAMIN Inactive CIPROFLOXACIN HCL 250 MG ORAL TABLET 1 twice a day for bladder infection 2016 CIPROFLOXACIN HCL 250 MG ORAL TABLET 947392 CIPROFLOXACIN HCL Inactive AZO TABS TABLET 2 tabs qd AZO TABS TABLET PHENAZOPYRIDINE HCL TABS Inactive SYMBICORT 160-4.5 MCG/ACT INHALATION AEROSOL 2 puff BID for 10 days SYMBICORT 160-4.5 MCG/ACT INHALATION AEROSOL BUDESONIDE- FORMOTEROL FUMARATE Inactive CYCLOBENZAPRINE HCL 10 MG ORAL TABLET 1 three times a day as needed for muscle spasm CYCLOBENZAPRINE HCL 10 MG ORAL TABLET 853474 CYCLOBENZAPRINE HCL Inactive GUAIFENESIN ER 600 MG ORAL TABLET EXTENDED RELEASE 12 HOUR 1 twice a day as needed for congestion GUAIFENESIN ER 600 MG ORAL TABLET EXTENDED RELEASE 12 HOUR GUAIFENESIN Inactive BACTRIM DS 800-160 MG ORAL TABLET 1 twice a day BACTRIM DS 800-160 MG ORAL TABLET 135753 SULFAMETHOXAZOLE-TRIMETHOPRIM Inactive CIPRO 500 MG ORAL TABLET 1 tablet by mouth twice daily CIPRO 500 MG ORAL TABLET 152415 CIPROFLOXACIN HCL Inactive AZITHROMYCIN 250 MG ORAL TABLET 2 po qd x 1 day, then 1 po qd x 4 days 02/15 AZITHROMYCIN 250 MG ORAL TABLET 960576 AZITHROMYCIN Inactive AZITHROMYCIN 250 MG ORAL TABLET 2 po qd x 1 day, then 1 po qd x 4 days 07/27 AZITHROMYCIN 250 MG ORAL TABLET 445084 AZITHROMYCIN Inactive ZITHROMAX Z-DANILO 250 MG ORAL TABLET 2 today, then 1 daily for 4 days ZITHROMAX Z-DANILO 250 MG ORAL TABLET 133032 AZITHROMYCIN Inactive AMOXICILLIN 500 MG ORAL CAPSULE 1 cap by mouth three times a day AMOXICILLIN 500 MG ORAL CAPSULE 175577 AMOXICILLIN Inactive Immunizations Vaccine Administration Date Value [...] pressure, diastolic, repeated by physician 70 BP calov blood pressure, diastolic 70 mm[Hg] BP calvo [...] - Hematology leukocyte count, blood sent to [facility] 10^3/mm^3 10*3/mm3 4.6-10.2 Lab Report: CBC, Lipid Panel, Thyroid Stimulating Hormone (L), Free Thyr ... - Chemistry cholesterol, serum 142 mg/dL 186-662 1287/10/24 triglyceride, serum, fasting 77 mg/dL 30-200 HDL [...] Panel - Chemistry sodium, serum 137 mmol/L 589-996 4318/10/24 carbon dioxide, venous blood 24.4 mmol/L 21.0-32.0 [...] 1+ Encounters Code Encounter Date Provider Facility CPT-87723 Level 3 Est. Patient 16:49:52 CDT Rian Ortega MD [facility] CPT-97299 [id number] Vst-Est Level III 16:46:54 CDT Tariq Marrero MD [facility] CPT-07203 Level 3 Est. Patient 14:41:20 CDT Tariq Marrero MD [facility] CPT-25677 Level 3 Est. Patient 11:06:09 FRET SAW OPERATOR Carline Best [facility] CPT-73878 Level 3 Est. Patient 15:59:13 FRET SAW OPERATOR Carline Best [facility] CPT-84381 Employment/ICC Exam 15:03:09 FRET SAW OPERATOR Sasha Tan [facility] CPT-16779 Level 3 Est. Patient 11:54:40 CDT Rian Ortega MD [facility] CPT-90804 Level 3 Est. Patient 11:17:51 CDT Carline Best [facility] CPT-95005 Level 3 Est. Patient 15:43:38 CDT Tariq Marrero MD [facility] CPT-24961 Level 3 Est. Patient 11:16:27 FRET SAW OPERATOR Nereyda Rodriguez [facility] CPT-16147 Level 4 Est. Patient 08:56:42 FRET SAW OPERATOR Sasha Tan [facility] CPT-03986 Level 3 Est. Patient 16:40:58 CDT Rian Ortega MD [facility] CPT-27801 Level 3 Est. Patient 13:55:16 FRET SAW OPERATOR Rian Ortega MD [facility] CPT-48064 Level 3 Est. Patient 10:42:52 CDT Corrina Bailon [facility] CPT-22323 Level 3 Est. Patient 11:18:30 CDT Aris Charlton MD [facility] Procedures Code Procedure Name Date Entry Date Standard Description CPT-38739 Prv Med Est Pt 40-64yrs 16:49:40 CDT CPT-80873 UA w micro - LAB USE ONLY 13:09:18 FRET SAW OPERATOR CPT-97187 Urine Culture - LAB USE ONLY 13:09:18 FRET SAW OPERATOR CPT-57101 Wet Mount - LAB USE ONLY 11:11:39 FRET SAW OPERATOR CPT-14867 Lipid - LAB USE ONLY 15:05:24 FRET SAW OPERATOR CPT-71828 PT/INR - LAB USE ONLY 12:14:07 CDT CPT-95151 HGBA1C - LAB USE ONLY 12:14:07 CDT CPT-78928 CMP - LAB USE ONLY 12:14:07 CDT CPT-54735 CBC - LAB USE ONLY 12:14:07 CDT CPT-81054 Venipuncture Draw Fee 12:14:06 CDT CPT-J0702 Celestone 6 mg (Betamethasone) 15:04:45 FRET SAW OPERATOR CPT-96313 Abx/Therapy Injection 15:04:45 FRET SAW OPERATOR CPT-J0702 Celestone 12 mg (Betamethasone) 11:45:31 FRET SAW OPERATOR CPT-58420 Visit 11:39:52 FRET SAW OPERATOR CPT-20925R Sono biophysical pro wo stress test-[facility] 11:21: 42 FRET SAW OPERATOR CPT-74425 Visit 16:00:50 FRET SAW OPERATOR CPT-06263R Sono biophysical pro wo stress test-[facility] 13:12: 18 FRET SAW OPERATOR CPT-07197 Sono biophysical pro wo stress test 11:17:21 FRET SAW OPERATOR 05/21 CPT-84270 Tdap 7yrs or > 15:22:51 FRET SAW OPERATOR CPT-50582 Immunization Single Admin 15:22:51 FRET SAW OPERATOR CPT-73912 Tdap 7yrs or > 15:09:13 FRET SAW OPERATOR CPT-24240 Visit 14:54:16 FRET SAW OPERATOR CPT-22177 Fluzone Quadrivalent Intramuscular Suspension 0.5 ML 16: 58:58 CDT CPT-57739 Administration single or combination vaccine inc oral 16 :58:58 CDT CPT-94299 Fluzone Thim Free 36mo and older 14:47:39 CDT CPT-49505 Visit 14:47:39 CDT CPT-48586 Sono OB limited 10:30:07 CDT CPT-69438 Visit 10:04:44 CDT CPT-16612 Sono OB comp > 14 weeks 12:50:41 CDT CPT-09544 Visit 12:06:25 CDT CPT-49093 Visit 12:43:15 CDT CPT-99357 Visit 10:06:02 CDT CPT-29684 Spec Collection and Handling Fee 10:00:31 CDT CPT-30067 Visit 10:00:30 CDT CPT-92995 Drug Screen Grisel 14:36:13 CDT
--- OUTSIDE RECORDS SUMMARY | 2018-08-28 06:20 | XMS REPORT | Clinical Summary ---
Author Author Admin, E Organization [facility] Address Unknown Phone Unavailable Allergies, Adverse Reactions, [...] unspecified high-risk Advanced maternal age 859.60 Resolved Rina Ortega MD Elderly multigravida, with current , [...] Active Rian Ortega MD Tobacco use disorder Director Instrumentation well woman exam V72.31 Active Sasha Tan [...] by mouth three times a day AMOXICILLIN 99766073229 No Longer Active Tariq Marrero MD Active BACTRIM DS 800-160 MG ORAL TABLET 1 twice a day SULFAMETHOXAZOLE-TRIMETHOPRIM 63723933023 No Longer Active Irma Michaels Active ZITHROMAX Z-DANILO 250 MG ORAL TABLET 2 today, then 1 daily for 4 days AZITHROMYCIN 24023706522 No Longer Active Mahsa Alvarez Active AZITHROMYCIN 250 MG ORAL TABLET 2 po qd x 1 day, then 1 po qd x 4 days 07/27 AZITHROMYCIN 45881038506 No Longer Active Carline Best APRN Active GUAIFENESIN ER 600 MG ORAL TABLET EXTENDED RELEASE 12 HOUR 1 twice a day as needed for congestion GUAIFENESIN 91422757930 No Longer Active Sasha Tan APRN Active CYCLOBENZAPRINE HCL 10 MG ORAL TABLET 1 three times a day as needed for muscle spasm CYCLOBENZAPRINE HCL 65407786703 No Longer Active Sasha Tan APRN Active SYMBICORT 160-4.5 MCG/ACT INHALATION AEROSOL 2 puff BID for 10 days BUDESONIDE-FORMOTEROL FUMARATE 93252424337 No Longer Active Rian Ortega MD Active AZITHROMYCIN 250 MG ORAL TABLET 2 po qd x 1 day, then 1 po qd x 4 days 02/15 AZITHROMYCIN 00040644051 No Longer Active Carline Best APRN Active CIPRO 500 MG ORAL TABLET 1 tablet by mouth twice daily CIPROFLOXACIN HCL 25371653147 No Longer Active Tariq Marrero MD Active AZO TABS TABLET 2 tabs qd PHENAZOPYRIDINE HCL TABS 90453900565 No Longer Active Tariq Marrero MD Active CIPROFLOXACIN HCL 250 MG ORAL TABLET 1 twice a day for bladder infection 2016 CIPROFLOXACIN HCL 58038161463 No Longer Active Tariq Marrero MD Active SM VITAMIN B12 TR 1000 MCG ORAL TABLET EXTENDED RELEASE 1 tab po daily 04/24 CYANOCOBALAMIN 39762537919 No Longer Active Nereyda Rodriguez APRN Active CARAFATE 1 GM ORAL TABLET 1 tab po as needed up to 4 times per day SUCRALFATE 95204573768 No Longer Active Nereyda Rodriguez APRN Active PNV PLUS MULTIVITAMIN 27-1 MG ORAL TABLET 1 daily 04/24 VIT-FE FUMARATE-FA 03355818269 No Longer Active Sasha Tan APRN Active CHANTIX STARTING MONTH DANILO 0.5 MG X 11 & 1 MG X 42 ORAL TABLET take as directed VARENICLINE TARTRATE 90369508135 No Longer Active Sasha Tan APRN Active CHANTIX 1 MG ORAL TABLET 1 twice a day to help quit smoking 04/24 VARENICLINE TARTRATE 90182999591 No Longer Active Sasha Tan APRN Active OMEPRAZOLE 20 MG ORAL CAPSULE DELAYED RELEASE 1 tablet by mouth daily OMEPRAZOLE 26353090399 Active Sasha Tan APRN Active FLINSTONES GUMMIES OMEGA-3 DHA ORAL TABLET CHEWABLE 2 gummies per day PEDIATRIC MULTIPLE VIT-C-FA 70498149787 Active Sasha Tan APRN Active CLINDAMYCIN HCL 150 MG ORAL CAPSULE 1 four times a day for 1 week CLINDAMYCIN HCL 65477337572 No Longer Active Karen Jaramillo MD Active TRIAMCINOLONE ACETONIDE 0.1 % EXTERNAL CREAM Apply to affected areas TID for up to 1 week TRIAMCINOLONE ACETONIDE 69325051401 No Longer Active Rian Ortega MD Active ZITHROMAX 1 GM ORAL PACKET Take 1 time and recheck lab in 2-3 weeks AZITHROMYCIN 81328403227 No Longer Active Rian Ortega MD Active FLAGYL 500 MG ORAL TABLET four tabs PO x 1 METRONIDAZOLE 06445944719 No Longer Active Aris Charlton MD Active FLAGYL 500 MG ORAL TABLET four tabs PO x 1 FLAGYL 500 MG ORAL TABLET 073966 METRONIDAZOLE Inactive ZITHROMAX 1 GM ORAL PACKET Take 1 time and recheck lab in 2-3 weeks ZITHROMAX 1 GM ORAL PACKET 794012 AZITHROMYCIN Inactive TRIAMCINOLONE ACETONIDE 0.1 % EXTERNAL CREAM Apply to affected areas TID for up to 1 week TRIAMCINOLONE ACETONIDE 0.1 % EXTERNAL CREAM 4387671 TRIAMCINOLONE ACETONIDE Inactive CLINDAMYCIN HCL 150 MG ORAL CAPSULE 1 four times a day for 1 week CLINDAMYCIN HCL 150 MG ORAL CAPSULE 833099 CLINDAMYCIN HCL Inactive CHANTIX 1 MG ORAL [...] per day CARAFATE 1 GM ORAL TABLET 240057 SUCRALFATE Inactive SM VITAMIN B12 TR 1000 MCG ORAL TABLET EXTENDED RELEASE 1 tab po daily 04/24 SM VITAMIN B12 TR 1000 MCG ORAL TABLET EXTENDED RELEASE CYANOCOBALAMIN Inactive CIPROFLOXACIN HCL 250 MG ORAL TABLET 1 twice a day for bladder infection 2016 CIPROFLOXACIN HCL 250 MG ORAL TABLET 884220 CIPROFLOXACIN HCL Inactive AZO TABS TABLET 2 tabs qd AZO TABS TABLET PHENAZOPYRIDINE HCL TABS Inactive SYMBICORT 160-4.5 MCG/ACT INHALATION AEROSOL 2 puff BID for 10 days SYMBICORT 160-4.5 MCG/ACT INHALATION AEROSOL BUDESONIDE- FORMOTEROL FUMARATE Inactive CYCLOBENZAPRINE HCL 10 MG ORAL TABLET 1 three times a day as needed for muscle spasm CYCLOBENZAPRINE HCL 10 MG ORAL TABLET 812099 CYCLOBENZAPRINE HCL Inactive GUAIFENESIN ER 600 MG ORAL TABLET EXTENDED RELEASE 12 HOUR 1 twice a day as needed for congestion GUAIFENESIN ER 600 MG ORAL TABLET EXTENDED RELEASE 12 HOUR GUAIFENESIN Inactive BACTRIM DS 800-160 MG ORAL TABLET 1 twice a day BACTRIM DS 800-160 MG ORAL TABLET 205068 SULFAMETHOXAZOLE-TRIMETHOPRIM Inactive CIPRO 500 MG ORAL TABLET 1 tablet by mouth twice daily CIPRO 500 MG ORAL TABLET 181035 CIPROFLOXACIN HCL Inactive AZITHROMYCIN 250 MG ORAL TABLET 2 po qd x 1 day, then 1 po qd x 4 days 02/15 AZITHROMYCIN 250 MG ORAL TABLET 518393 AZITHROMYCIN Inactive AZITHROMYCIN 250 MG ORAL TABLET 2 po qd x 1 day, then 1 po qd x 4 days 07/27 AZITHROMYCIN 250 MG ORAL TABLET 235360 AZITHROMYCIN Inactive ZITHROMAX Z-DANILO 250 MG ORAL TABLET 2 today, then 1 daily for 4 days ZITHROMAX Z-DANILO 250 MG ORAL TABLET 545085 AZITHROMYCIN Inactive AMOXICILLIN 500 MG ORAL CAPSULE 1 cap by mouth three times a day AMOXICILLIN 500 MG ORAL CAPSULE 097918 AMOXICILLIN Inactive Immunizations Vaccine Administration Date Value [...] leukocyte count, blood sent to [facility] 10^3/mm^3 10*3/mm3 4.6-10.2 Lab Report: CBC, Lipid Panel, Thyroid Stimulating Hormone (L), Free Thyr ... - Chemistry cholesterol, serum 142 mg/dL 658-848 6616/10/24 triglyceride, serum, fasting 77 mg/dL 30-200 HDL [...] leukocyte count, blood 6.9 10^3/MM^3 10*3/mm3 4.6-10.2 mean corpuscular hemoglobin, RBC 29.5 pg 27.0-31.2 mean corpuscular hemoglobin concentration, RBC 32.7 G/DL % 31.8- 35.4 red blood cell distribution width 14.3 % 11.6-14.8 platelet count 291 10^3/MM^3 10*3/mm3 142-424 Lab Report: Comp. Metabolic Panel - Chemistry chloride, serum 104 mmol/L 98-107 blood glucose 85 mg/dL 65-110 urea nitrogen, blood 11 mg/dL 7-18 sodium, serum 137 mmol/L 712-114 4694/10/24 creatinine, serum 0.82 mg/dL 0.60-1.30 alanine aminotransferase (SGPT), serum 29 U/L 12-78 aspartate aminotransferase (SGOT), serum 16 U/L 15-37 calcium, serum 8.4 mg/dL 8.5-10.1 bilirubin, serum, total 0.60 mg/dL 0.00-1.00 carbon dioxide, venous blood 24.4 mmol/L 21.0-32.0 potassium, serum 4.7 mmol/L 3.5-5.2 Lab Report: ELIAZAR INFLUENZA A/B - Toxicology [...] 1+ Encounters Code Encounter Date Provider Facility CPT-41442 Level 3 Est. Patient 16:49:52 CDT Rian Ortega MD [facility] CPT-47444 [id number] Vst-Est Level III 16:46:54 CDT Tariq Marrero MD [facility] CPT-90462 Level 3 Est. Patient 14:41:20 CDT Tariq Marrero MD [facility] CPT-29840 Level 3 Est. Patient 11:06:09 INTERIOR BLOCK WIRER Carline Best [facility] CPT-32684 Level 3 Est. Patient 15:59:13 INTERIOR BLOCK WIRER Carline Best [facility] CPT-24022 Employment/ICC Exam 15:03:09 INTERIOR BLOCK WIRER Sasha Tan [facility] CPT-02662 Level 3 Est. Patient 11:54:40 CDT Rian Ortega MD [facility] CPT-03467 Level 3 Est. Patient 11:17:51 CDT Carline Best [facility] CPT-92010 Level 3 Est. Patient 15:43:38 CDT Tariq Marrero MD [facility] CPT-95110 Level 3 Est. Patient 11:16:27 INTERIOR BLOCK WIRER Nereyda Rodriguez [facility] CPT-13091 Level 4 Est. Patient 08:56:42 INTERIOR BLOCK WIRER Sasha Tan [facility] CPT-89988 Level 3 Est. Patient 16:40:58 CDT Rian Ortega MD [facility] CPT-69719 Level 3 Est. Patient 13:55:16 INTERIOR BLOCK WIRER Rian Ortega MD [facility] CPT-39898 Level 3 Est. Patient 10:42:52 CDT Corrinagodfrey Bailon [facility] CPT-45911 Level 3 Est. Patient 11:18:30 CDT Aris Charlton MD [facility] Procedures Code Procedure Name Date Entry Date Standard Description CPT-45165 Prv Med Est Pt 40-64yrs 16:49:40 CDT CPT-12831 UA w micro - LAB USE ONLY 13:09:18 INTERIOR BLOCK WIRER CPT-40361 Urine Culture - LAB USE ONLY 13:09:18 INTERIOR BLOCK WIRER CPT-62359 Wet Mount - LAB USE ONLY 11:11:39 INTERIOR BLOCK WIRER CPT-84746 Lipid - LAB USE ONLY 15:05:24 INTERIOR BLOCK WIRER CPT-10200 PT/INR - LAB USE ONLY 12:14:07 CDT CPT-23112 HGBA1C - LAB USE ONLY 12:14:07 CDT CPT-31948 CMP - LAB USE ONLY 12:14:07 CDT CPT-18105 CBC - LAB USE ONLY 12:14:07 CDT CPT-34693 Venipuncture Draw Fee 12:14:06 CDT CPT-J0702 Celestone 6 mg (Betamethasone) 15:04:45 INTERIOR BLOCK WIRER CPT-01135 Abx/Therapy Injection 15:04:45 INTERIOR BLOCK WIRER CPT-J0702 Celestone 12 mg (Betamethasone) 11:45:31 INTERIOR BLOCK WIRER CPT-27530 Visit 11:39:52 INTERIOR BLOCK WIRER CPT-56467X Sono biophysical pro wo stress test-[facility] 11:21: 42 INTERIOR BLOCK WIRER CPT-10982 Visit 16:00:50 INTERIOR BLOCK WIRER CPT-45133P Sono biophysical pro wo stress test-[facility] 13:12: 18 INTERIOR BLOCK WIRER CPT-88466 Sono biophysical pro wo stress test 11:17:21 INTERIOR BLOCK WIRER 05/21 CPT-29724 Tdap 7yrs or > 15:22:51 INTERIOR BLOCK WIRER CPT-79616 Immunization Single Admin 15:22:51 INTERIOR BLOCK WIRER CPT-28549 Tdap 7yrs or > 15:09:13 INTERIOR BLOCK WIRER CPT-24297 Visit 14:54:16 INTERIOR BLOCK WIRER CPT-77162 Fluzone Quadrivalent Intramuscular Suspension 0.5 ML 16: 58:58 CDT CPT-40406 Administration single or combination vaccine inc oral 16 :58:58 CDT CPT-14467 Fluzone Thim Free 36mo and older 14:47:39 CDT CPT-35755 Visit 14:47:39 CDT CPT-83492 Sono OB limited 10:30:07 CDT CPT-72050 Visit 10:04:44 CDT CPT-14066 Sono OB comp > 14 weeks 12:50:41 CDT CPT-60760 Visit 12:06:25 CDT CPT-45614 Visit 12:43:15 CDT CPT-84285 Visit 10:06:02 CDT CPT-47002 Spec Collection and Handling Fee 10:00:31 CDT CPT-34430 Visit 10:00:30 CDT CPT-10747 Drug Screen Grisel 14:36:13 CDT
--- OUTSIDE RECORDS SUMMARY | 2018-08-28 06:21 | XMS REPORT | Clinical Summary ---
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 well woman exam V72.31 Active Sasha Tan APRN Routine gynecological examination Bariatric operative procedure V45.86 Active Mariely King RMA Bariatric surgery status Physical examination V70.0 Active Sasha Tan APRN Routine general medical examination at a health care facility Dysuria 788.1 Resolved Rian Ortgea MD Dysuria Urinary tract infection 599.0 Active [...] by mouth three times a day AMOXICILLIN 35754528327 No Longer Active Tariq Marrero MD Active BACTRIM DS 800-160 MG ORAL TABLET 1 twice a day SULFAMETHOXAZOLE-TRIMETHOPRIM 21844948835 No Longer Active Irma Michaels Active ZITHROMAX Z-DANILO 250 MG ORAL TABLET 2 today, then 1 daily for 4 days AZITHROMYCIN 70043812806 No Longer Active Mahsa Alvarez Active AZITHROMYCIN 250 MG ORAL TABLET 2 po qd x 1 day, then 1 po qd x 4 days 07/27 AZITHROMYCIN 76658063439 No Longer Active Carline Best APRN Active GUAIFENESIN ER 600 MG ORAL TABLET EXTENDED RELEASE 12 HOUR 1 twice a day as needed for congestion GUAIFENESIN 20788328024 No Longer Active Sasha Tan APRN Active CYCLOBENZAPRINE HCL 10 MG ORAL TABLET 1 three times a day as needed for muscle spasm CYCLOBENZAPRINE HCL 12121275106 No Longer Active Sasha Tan APRN Active SYMBICORT 160-4.5 MCG/ACT INHALATION AEROSOL 2 puff BID for 10 days BUDESONIDE-FORMOTEROL FUMARATE 66973450005 No Longer Active Rian Ortega MD Active AZITHROMYCIN 250 MG ORAL TABLET 2 po qd x 1 day, then 1 po qd x 4 days 02/15 AZITHROMYCIN 28261219158 No Longer Active Carline Best APRN Active CIPRO 500 MG ORAL TABLET 1 tablet by mouth twice daily CIPROFLOXACIN HCL 83582414068 No Longer Active Tariq Marrero MD Active AZO TABS TABLET 2 tabs qd PHENAZOPYRIDINE HCL TABS 59174968767 No Longer Active Tariq Marrero MD Active CIPROFLOXACIN HCL 250 MG ORAL TABLET 1 twice a day for bladder infection 2016 CIPROFLOXACIN HCL 77818156800 No Longer Active Tariq Marrero MD Active SM VITAMIN B12 TR 1000 MCG ORAL TABLET EXTENDED RELEASE 1 tab po daily 04/24 CYANOCOBALAMIN 35913198874 No Longer Active Nereyda Rodriguez APRN Active CARAFATE 1 GM ORAL TABLET 1 tab po as needed up to 4 times per day SUCRALFATE 28370213401 No Longer Active Nereyda Rodriguez APRN Active PNV PLUS MULTIVITAMIN 27-1 MG ORAL TABLET 1 daily 04/24 VIT-FE FUMARATE-FA 73826644924 No Longer Active Sasha Tan APRN Active CHANTIX STARTING MONTH DANILO 0.5 MG X 11 & 1 MG X 42 ORAL TABLET take as directed VARENICLINE TARTRATE 10045402110 No Longer Active Sasha Tan APRN Active CHANTIX 1 MG ORAL TABLET 1 twice a day to help quit smoking 04/24 VARENICLINE TARTRATE 89220684262 No Longer Active Sasha Tan APRN Active OMEPRAZOLE 20 MG ORAL CAPSULE DELAYED RELEASE 1 tablet by mouth daily OMEPRAZOLE 56739153660 Active Sasha Tan APRN Active FLINSTONES GUMMIES OMEGA-3 DHA ORAL TABLET CHEWABLE 2 gummies per day PEDIATRIC MULTIPLE VIT-C-FA 04113456881 Active Sasha Tan APRN Active CLINDAMYCIN HCL 150 MG ORAL CAPSULE 1 four times a day for 1 week CLINDAMYCIN HCL 69865079646 No Longer Active Karen Jaramillo MD Active TRIAMCINOLONE ACETONIDE 0.1 % EXTERNAL CREAM Apply to affected areas TID for up to 1 week TRIAMCINOLONE ACETONIDE 69296249068 No Longer Active Rian Ortega MD Active ZITHROMAX 1 GM ORAL PACKET Take 1 time and recheck lab in 2-3 weeks AZITHROMYCIN 18707401711 No Longer Active Rian Ortega MD Active FLAGYL 500 MG ORAL TABLET four tabs PO x 1 METRONIDAZOLE 84280149439 No Longer Active Aris Charlton MD Active FLAGYL 500 MG ORAL TABLET four tabs PO x 1 FLAGYL 500 MG ORAL TABLET 322256 METRONIDAZOLE Inactive ZITHROMAX 1 GM ORAL PACKET Take 1 time and recheck lab in 2-3 weeks ZITHROMAX 1 GM ORAL PACKET 795731 AZITHROMYCIN Inactive TRIAMCINOLONE ACETONIDE 0.1 % EXTERNAL CREAM Apply to affected areas TID for up to 1 week TRIAMCINOLONE ACETONIDE 0.1 % EXTERNAL CREAM 9624737 TRIAMCINOLONE ACETONIDE Inactive CLINDAMYCIN HCL 150 MG ORAL CAPSULE 1 four times a day for 1 week CLINDAMYCIN HCL 150 MG ORAL CAPSULE 815259 CLINDAMYCIN HCL Inactive CHANTIX 1 MG ORAL [...] per day CARAFATE 1 GM ORAL TABLET 762531 SUCRALFATE Inactive SM VITAMIN B12 TR 1000 MCG ORAL TABLET EXTENDED RELEASE 1 tab po daily 04/24 SM VITAMIN B12 TR 1000 MCG ORAL TABLET EXTENDED RELEASE CYANOCOBALAMIN Inactive CIPROFLOXACIN HCL 250 MG ORAL TABLET 1 twice a day for bladder infection 2016 CIPROFLOXACIN HCL 250 MG ORAL TABLET 367872 CIPROFLOXACIN HCL Inactive AZO TABS TABLET 2 tabs qd AZO TABS TABLET PHENAZOPYRIDINE HCL TABS Inactive SYMBICORT 160-4.5 MCG/ACT INHALATION AEROSOL 2 puff BID for 10 days SYMBICORT 160-4.5 MCG/ACT INHALATION AEROSOL BUDESONIDE- FORMOTEROL FUMARATE Inactive CYCLOBENZAPRINE HCL 10 MG ORAL TABLET 1 three times a day as needed for muscle spasm CYCLOBENZAPRINE HCL 10 MG ORAL TABLET 232358 CYCLOBENZAPRINE HCL Inactive GUAIFENESIN ER 600 MG ORAL TABLET EXTENDED RELEASE 12 HOUR 1 twice a day as needed for congestion GUAIFENESIN ER 600 MG ORAL TABLET EXTENDED RELEASE 12 HOUR GUAIFENESIN Inactive BACTRIM DS 800-160 MG ORAL TABLET 1 twice a day BACTRIM DS 800-160 MG ORAL TABLET 593951 SULFAMETHOXAZOLE-TRIMETHOPRIM Inactive CIPRO 500 MG ORAL TABLET 1 tablet by mouth twice daily CIPRO 500 MG ORAL TABLET 524657 CIPROFLOXACIN HCL Inactive AZITHROMYCIN 250 MG ORAL TABLET 2 po qd x 1 day, then 1 po qd x 4 days 02/15 AZITHROMYCIN 250 MG ORAL TABLET 450902 AZITHROMYCIN Inactive AZITHROMYCIN 250 MG ORAL TABLET 2 po qd x 1 day, then 1 po qd x 4 days 07/27 AZITHROMYCIN 250 MG ORAL TABLET 311839 AZITHROMYCIN Inactive ZITHROMAX Z-DANILO 250 MG ORAL TABLET 2 today, then 1 daily for 4 days ZITHROMAX Z-DANILO 250 MG ORAL TABLET 283226 AZITHROMYCIN Inactive AMOXICILLIN 500 MG ORAL CAPSULE 1 cap by mouth three times a day AMOXICILLIN 500 MG ORAL CAPSULE 801467 AMOXICILLIN Inactive Immunizations Vaccine Administration Date Value [...] - Hematology leukocyte count, blood sent to [facility] 10^3/mm^3 10*3/mm3 4.6-10.2 Lab Report: CBC, Lipid Panel, Thyroid Stimulating Hormone (L), Free Thyr ... - Chemistry cholesterol, serum 142 mg/dL 418-452 1062/10/24 triglyceride, serum, fasting 77 mg/dL 30-200 HDL [...] Panel - Chemistry sodium, serum 137 mmol/L 709-181 0104/10/24 carbon dioxide, venous blood 24.4 mmol/L 21.0-32.0 [...] 1+ Encounters Code Encounter Date Provider Facility CPT-14598 Level 3 Est. Patient 16:49:52 CDT Rian Ortega MD [facility] CPT-42124 [id number] Vst-Est Level III 16:46:54 CDT Tariq Marrero MD [facility] CPT-19549 Level 3 Est. Patient 14:41:20 CDT Tariq Marrero MD [facility] CPT-29838 Level 3 Est. Patient 11:06:09 APPLIED MARINE PHYSICS PROFESSOR Carline Best [facility] CPT-05374 Level 3 Est. Patient 15:59:13 APPLIED MARINE PHYSICS PROFESSOR Carline Best [facility] CPT-97788 Employment/ICC Exam 15:03:09 APPLIED MARINE PHYSICS PROFESSOR Sasha Tan [facility] CPT-69713 Level 3 Est. Patient 11:54:40 CDT Rian Ortega MD [facility] CPT-62800 Level 3 Est. Patient 11:17:51 CDT Carline Best [facility] CPT-02344 Level 3 Est. Patient 15:43:38 CDT Tariq Marrero MD [facility] CPT-83366 Level 3 Est. Patient 11:16:27 APPLIED MARINE PHYSICS PROFESSOR Nereyda Rodriguez [facility] CPT-09692 Level 4 Est. Patient 08:56:42 APPLIED MARINE PHYSICS PROFESSOR Sasha Tan [facility] CPT-07315 Level 3 Est. Patient 16:40:58 CDT Rian Ortega MD [facility] CPT-77865 Level 3 Est. Patient 13:55:16 APPLIED MARINE PHYSICS PROFESSOR Rian Ortega MD [facility] CPT-45091 Level 3 Est. Patient 10:42:[address] [facility] CPT-59145 Level 3 Est. Patient 11:18:30 CDT Aris Charlton MD [facility] Procedures Code Procedure Name Date Entry Date Standard Description CPT-98563 Prv Med Est Pt 40-64yrs 16:49:40 CDT CPT-77695 UA w micro - LAB USE ONLY 13:09:18 APPLIED MARINE PHYSICS PROFESSOR CPT-91969 Urine Culture - LAB USE ONLY 13:09:18 APPLIED MARINE PHYSICS PROFESSOR CPT-84818 Wet Mount - LAB USE ONLY 11:11:39 APPLIED MARINE PHYSICS PROFESSOR CPT-39783 Lipid - LAB USE ONLY 15:05:24 APPLIED MARINE PHYSICS PROFESSOR CPT-82361 PT/INR - LAB USE ONLY 12:14:07 CDT CPT-76840 HGBA1C - LAB USE ONLY 12:14:07 CDT CPT-66672 CMP - LAB USE ONLY 12:14:07 CDT CPT-27395 CBC - LAB USE ONLY 12:14:07 CDT CPT-76803 Venipuncture Draw Fee 12:14:06 CDT CPT-J0702 Celestone 6 mg (Betamethasone) 15:04:45 APPLIED MARINE PHYSICS PROFESSOR CPT-58900 Abx/Therapy Injection 15:04:45 APPLIED MARINE PHYSICS PROFESSOR CPT-J0702 Celestone 12 mg (Betamethasone) 11:45:31 APPLIED MARINE PHYSICS PROFESSOR CPT-49413 Visit 11:39:52 APPLIED MARINE PHYSICS PROFESSOR CPT-24525I Sono biophysical pro wo stress test-[facility] 11:21: 42 APPLIED MARINE PHYSICS PROFESSOR CPT-63686 Visit 16:00:50 APPLIED MARINE PHYSICS PROFESSOR CPT-28211F Sono biophysical pro wo stress test-[facility] 13:12: 18 APPLIED MARINE PHYSICS PROFESSOR CPT-67993 Sono biophysical pro wo stress test 11:17:21 APPLIED MARINE PHYSICS PROFESSOR 05/21 CPT-64209 Tdap 7yrs or > 15:22:51 APPLIED MARINE PHYSICS PROFESSOR CPT-58827 Immunization Single Admin 15:22:51 APPLIED MARINE PHYSICS PROFESSOR CPT-03640 Tdap 7yrs or > 15:09:13 APPLIED MARINE PHYSICS PROFESSOR CPT-46069 Visit 14:54:16 APPLIED MARINE PHYSICS PROFESSOR CPT-84898 Fluzone Quadrivalent Intramuscular Suspension 0.5 ML 16: 58:58 CDT CPT-48102 Administration single or combination vaccine inc oral 16 :58:58 CDT CPT-94531 Fluzone Thim Free 36mo and older 14:47:39 CDT CPT-26984 Visit 14:47:39 CDT CPT-55174 Sono OB limited 10:30:07 CDT CPT-26342 Visit 10:04:44 CDT CPT-92621 Sono OB comp > 14 weeks 12:50:41 CDT CPT-77355 Visit 12:06:25 CDT CPT-11764 Visit 12:43:15 CDT CPT-55784 Visit 10:06:02 CDT CPT-24412 Spec Collection and Handling Fee 10:00:31 CDT CPT-57950 Visit 10:00:30 CDT CPT-62712 Drug Screen Grisel 14:36:13 CDT
--- OUTSIDE RECORDS SUMMARY | 2018-08-28 06:22 | XMS REPORT | Clinical Summary ---
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 Active Sasha Tan [...] by mouth three times a day AMOXICILLIN 27314763374 No Longer Active Tariq Marrero MD Active BACTRIM DS 800-160 MG ORAL TABLET 1 twice a day SULFAMETHOXAZOLE-TRIMETHOPRIM 97545765307 No Longer Active Irma Michaels Active ZITHROMAX Z-DANILO 250 MG ORAL TABLET 2 today, then 1 daily for 4 days AZITHROMYCIN 38679541803 No Longer Active Mahsa Alvarez Active AZITHROMYCIN 250 MG ORAL TABLET 2 po qd x 1 day, then 1 po qd x 4 days 07/27 AZITHROMYCIN 49758371778 No Longer Active Carline Best APRN Active GUAIFENESIN ER 600 MG ORAL TABLET EXTENDED RELEASE 12 HOUR 1 twice a day as needed for congestion GUAIFENESIN 55518672763 No Longer Active Sasha Tan APRN Active CYCLOBENZAPRINE HCL 10 MG ORAL TABLET 1 three times a day as needed for muscle spasm CYCLOBENZAPRINE HCL 24697216333 No Longer Active Sasha Tan APRN Active SYMBICORT 160-4.5 MCG/ACT INHALATION AEROSOL 2 puff BID for 10 days BUDESONIDE-FORMOTEROL FUMARATE 95570592780 No Longer Active Rian Ortega MD Active AZITHROMYCIN 250 MG ORAL TABLET 2 po qd x 1 day, then 1 po qd x 4 days 02/15 AZITHROMYCIN 49727165795 No Longer Active Carline Best APRN Active CIPRO 500 MG ORAL TABLET 1 tablet by mouth twice daily CIPROFLOXACIN HCL 37841011297 No Longer Active Tariq Marrero MD Active AZO TABS TABLET 2 tabs qd PHENAZOPYRIDINE HCL TABS 32309266143 No Longer Active Tariq Marrero MD Active CIPROFLOXACIN HCL 250 MG ORAL TABLET 1 twice a day for bladder infection 2016 CIPROFLOXACIN HCL 84108516075 No Longer Active Tariq Marrero MD Active SM VITAMIN B12 TR 1000 MCG ORAL TABLET EXTENDED RELEASE 1 tab po daily 04/24 CYANOCOBALAMIN 34946712102 No Longer Active Nereyda Rodriguez APRN Active CARAFATE 1 GM ORAL TABLET 1 tab po as needed up to 4 times per day SUCRALFATE 60118702784 No Longer Active Nereyda Rodriguez APRN Active PNV PLUS MULTIVITAMIN 27-1 MG ORAL TABLET 1 daily 04/24 VIT-FE FUMARATE-FA 03155200701 No Longer Active Sasha Tan APRN Active CHANTIX STARTING MONTH DANILO 0.5 MG X 11 & 1 MG X 42 ORAL TABLET take as directed VARENICLINE TARTRATE 62015543707 No Longer Active Sasha Tan APRN Active CHANTIX 1 MG ORAL TABLET 1 twice a day to help quit smoking 04/24 VARENICLINE TARTRATE 87601371086 No Longer Active Sasha Tan APRN Active OMEPRAZOLE 20 MG ORAL CAPSULE DELAYED RELEASE 1 tablet by mouth daily OMEPRAZOLE 65010616781 Active Sasha Tan APRN Active FLINSTONES GUMMIES OMEGA-3 DHA ORAL TABLET CHEWABLE 2 gummies per day PEDIATRIC MULTIPLE VIT-C-FA 17385878631 Active Sasha Tan APRN Active CLINDAMYCIN HCL 150 MG ORAL CAPSULE 1 four times a day for 1 week CLINDAMYCIN HCL 13345486435 No Longer Active Karen Jaramillo MD Active TRIAMCINOLONE ACETONIDE 0.1 % EXTERNAL CREAM Apply to affected areas TID for up to 1 week TRIAMCINOLONE ACETONIDE 44290253156 No Longer Active Rian Ortega MD Active ZITHROMAX 1 GM ORAL PACKET Take 1 time and recheck lab in 2-3 weeks AZITHROMYCIN 27299403540 No Longer Active Rian Ortega MD Active FLAGYL 500 MG ORAL TABLET four tabs PO x 1 METRONIDAZOLE 39442867127 No Longer Active Aris Charlton MD Active FLAGYL 500 MG ORAL TABLET four tabs PO x 1 FLAGYL 500 MG ORAL TABLET 074410 METRONIDAZOLE Inactive ZITHROMAX 1 GM ORAL PACKET Take 1 time and recheck lab in 2-3 weeks ZITHROMAX 1 GM ORAL PACKET 408967 AZITHROMYCIN Inactive TRIAMCINOLONE ACETONIDE 0.1 % EXTERNAL CREAM Apply to affected areas TID for up to 1 week TRIAMCINOLONE ACETONIDE 0.1 % EXTERNAL CREAM 6518377 TRIAMCINOLONE ACETONIDE Inactive CLINDAMYCIN HCL 150 MG ORAL CAPSULE 1 four times a day for 1 week CLINDAMYCIN HCL 150 MG ORAL CAPSULE 357499 CLINDAMYCIN HCL Inactive CHANTIX 1 MG ORAL [...] per day CARAFATE 1 GM ORAL TABLET 429004 SUCRALFATE Inactive SM VITAMIN B12 TR 1000 MCG ORAL TABLET EXTENDED RELEASE 1 tab po daily 04/24 SM VITAMIN B12 TR 1000 MCG ORAL TABLET EXTENDED RELEASE CYANOCOBALAMIN Inactive CIPROFLOXACIN HCL 250 MG ORAL TABLET 1 twice a day for bladder infection 2016 CIPROFLOXACIN HCL 250 MG ORAL TABLET 057977 CIPROFLOXACIN HCL Inactive AZO TABS TABLET 2 tabs qd AZO TABS TABLET PHENAZOPYRIDINE HCL TABS Inactive SYMBICORT 160-4.5 MCG/ACT INHALATION AEROSOL 2 puff BID for 10 days SYMBICORT 160-4.5 MCG/ACT INHALATION AEROSOL BUDESONIDE- FORMOTEROL FUMARATE Inactive CYCLOBENZAPRINE HCL 10 MG ORAL TABLET 1 three times a day as needed for muscle spasm CYCLOBENZAPRINE HCL 10 MG ORAL TABLET 861245 CYCLOBENZAPRINE HCL Inactive GUAIFENESIN ER 600 MG ORAL TABLET EXTENDED RELEASE 12 HOUR 1 twice a day as needed for congestion GUAIFENESIN ER 600 MG ORAL TABLET EXTENDED RELEASE 12 HOUR GUAIFENESIN Inactive BACTRIM DS 800-160 MG ORAL TABLET 1 twice a day BACTRIM DS 800-160 MG ORAL TABLET 315753 SULFAMETHOXAZOLE-TRIMETHOPRIM Inactive CIPRO 500 MG ORAL TABLET 1 tablet by mouth twice daily CIPRO 500 MG ORAL TABLET 383225 CIPROFLOXACIN HCL Inactive AZITHROMYCIN 250 MG ORAL TABLET 2 po qd x 1 day, then 1 po qd x 4 days 02/15 AZITHROMYCIN 250 MG ORAL TABLET 004254 AZITHROMYCIN Inactive AZITHROMYCIN 250 MG ORAL TABLET 2 po qd x 1 day, then 1 po qd x 4 days 07/27 AZITHROMYCIN 250 MG ORAL TABLET 617772 AZITHROMYCIN Inactive ZITHROMAX Z-DANILO 250 MG ORAL TABLET 2 today, then 1 daily for 4 days ZITHROMAX Z-DANILO 250 MG ORAL TABLET 499058 AZITHROMYCIN Inactive AMOXICILLIN 500 MG ORAL CAPSULE 1 cap by mouth three times a day AMOXICILLIN 500 MG ORAL CAPSULE 118116 AMOXICILLIN Inactive Immunizations Vaccine Administration Date Value [...] - Hematology leukocyte count, blood sent to [facility] 10^3/mm^3 10*3/mm3 4.6-10.2 Lab Report: CBC, Lipid Panel, Thyroid Stimulating Hormone (L), Free Thyr ... - Chemistry cholesterol, serum 142 mg/dL 979-244 8915/10/24 triglyceride, serum, fasting 77 mg/dL 30-200 HDL [...] Panel - Chemistry sodium, serum 137 mmol/L 696-438 4371/10/24 carbon dioxide, venous blood 24.4 mmol/L 21.0-32.0 [...] 1+ Encounters Code Encounter Date Provider Facility CPT-01971 Level 3 Est. Patient 16:49:52 CDT Rian Ortega MD [facility] CPT-77870 [id number] Vst-Est Level III 16:46:54 CDT Tariq Marrero MD [facility] CPT-27509 Level 3 Est. Patient 14:41:20 CDT Tariq Marrero MD [facility] CPT-99924 Level 3 Est. Patient 11:06:09 CIVIL ATTORNEY Carline Best [facility] CPT-33373 Level 3 Est. Patient 15:59:13 CIVIL ATTORNEY Carline Best [facility] CPT-02294 Employment/ICC Exam 15:03:09 CIVIL ATTORNEY Sasha Tan [facility] CPT-72610 Level 3 Est. Patient 11:54:40 CDT Rian Ortega MD [facility] CPT-88342 Level 3 Est. Patient 11:17:51 CDT Carline Best [facility] CPT-48868 Level 3 Est. Patient 15:43:38 CDT Tariq Marrero MD [facility] CPT-16640 Level 3 Est. Patient 11:16:27 CIVIL ATTORNEY Nereyda Rodriguez [facility] CPT-37628 Level 4 Est. Patient 08:56:42 CIVIL ATTORNEY Sasha Tan [facility] CPT-64497 Level 3 Est. Patient 16:40:58 CDT Rian Ortega MD [facility] CPT-75110 Level 3 Est. Patient 13:55:16 CIVIL ATTORNEY Rian Ortega MD [facility] CPT-96010 Level 3 Est. Patient 10:42:52 CDT Corrina Bailon [facility] CPT-40697 Level 3 Est. Patient 11:18:30 CDT Aris Charlton MD [facility] Procedures Code Procedure Name Date Entry Date Standard Description CPT-73389 Prv Med Est Pt 40-64yrs 16:49:40 CDT CPT-25699 UA w micro - LAB USE ONLY 13:09:18 CIVIL ATTORNEY CPT-43829 Urine Culture - LAB USE ONLY 13:09:18 CIVIL ATTORNEY CPT-99662 Wet Mount - LAB USE ONLY 11:11:39 CIVIL ATTORNEY CPT-46445 Lipid - LAB USE ONLY 15:05:24 CIVIL ATTORNEY CPT-86449 PT/INR - LAB USE ONLY 12:14:07 CDT CPT-30095 HGBA1C - LAB USE ONLY 12:14:07 CDT CPT-79134 CMP - LAB USE ONLY 12:14:07 CDT CPT-47395 CBC - LAB USE ONLY 12:14:07 CDT CPT-32509 Venipuncture Draw Fee 12:14:06 CDT CPT-J0702 Celestone 6 mg (Betamethasone) 15:04:45 CIVIL ATTORNEY CPT-70170 Abx/Therapy Injection 15:04:45 CIVIL ATTORNEY CPT-J0702 Celestone 12 mg (Betamethasone) 11:45:31 CIVIL ATTORNEY CPT-45330 Visit 11:39:52 CIVIL ATTORNEY CPT-72139M Sono biophysical pro wo stress test-[facility] 11:21: 42 CIVIL ATTORNEY CPT-42308 Visit 16:00:50 CIVIL ATTORNEY CPT-34027P Sono biophysical pro wo stress test-[facility] 13:12: 18 CIVIL ATTORNEY CPT-59107 Sono biophysical pro wo stress test 11:17:21 CIVIL ATTORNEY 05/21 CPT-40757 Tdap 7yrs or > 15:22:51 CIVIL ATTORNEY CPT-11770 Immunization Single Admin 15:22:51 CIVIL ATTORNEY CPT-53876 Tdap 7yrs or > 15:09:13 CIVIL ATTORNEY CPT-09423 Visit 14:54:16 CIVIL ATTORNEY CPT-91805 Fluzone Quadrivalent Intramuscular Suspension 0.5 ML 16: 58:58 CDT CPT-16084 Administration single or combination vaccine inc oral 16 :58:58 CDT CPT-35502 Fluzone Thim Free 36mo and older 14:47:39 CDT CPT-06289 Visit 14:47:39 CDT CPT-33287 Sono OB limited 10:30:07 CDT CPT-26189 Visit 10:04:44 CDT CPT-97224 Sono OB comp > 14 weeks 12:50:41 CDT CPT-83135 Visit 12:06:25 CDT CPT-24948 Visit 12:43:15 CDT CPT-08675 Visit 10:06:02 CDT CPT-76955 Spec Collection and Handling Fee 10:00:31 CDT CPT-15362 Visit 10:00:30 CDT CPT-87709 Drug Screen Grisel 14:36:13 CDT
--- OUTSIDE RECORDS SUMMARY | 2018-08-28 06:22 | XMS REPORT | Clinical Summary ---
Author Author Admin, E Organization [employer] Address Unknown Phone Unavailable Allergies, Adverse Reactions, [...] Active Rian Ortega MD Tobacco use disorder [employer] Supervisor well woman exam V72.31 Active Sasha Tan [...] by mouth three times a day AMOXICILLIN 41290805385 Active Tariq Marrero MD Active BACTRIM DS 800-160 MG ORAL TABLET 1 twice a day SULFAMETHOXAZOLE-TRIMETHOPRIM 63007890139 No Longer Active Irma Michaels Active ZITHROMAX Z-DANILO 250 MG ORAL TABLET 2 today, then 1 daily for 4 days AZITHROMYCIN 67876825452 No Longer Active Mahsa Alvarez Active AZITHROMYCIN 250 MG ORAL TABLET 2 po qd x 1 day, then 1 po qd x 4 days 07/27 AZITHROMYCIN 22185176356 No Longer Active Carline Best APRN Active GUAIFENESIN ER 600 MG ORAL TABLET EXTENDED RELEASE 12 HOUR 1 twice a day as needed for congestion GUAIFENESIN 94465751258 No Longer Active Sasha Tan APRN Active CYCLOBENZAPRINE HCL 10 MG ORAL TABLET 1 three times a day as needed for muscle spasm CYCLOBENZAPRINE HCL 12288898207 No Longer Active Sasha Tan APRN Active SYMBICORT 160-4.5 MCG/ACT INHALATION AEROSOL 2 puff BID for 10 days BUDESONIDE-FORMOTEROL FUMARATE 72178368315 No Longer Active Rian Ortega MD Active AZITHROMYCIN 250 MG ORAL TABLET 2 po qd x 1 day, then 1 po qd x 4 days 02/15 AZITHROMYCIN 10253870026 No Longer Active Carline Best APRN Active CIPRO 500 MG ORAL TABLET 1 tablet by mouth twice daily CIPROFLOXACIN HCL 11175245171 No Longer Active Tariq Marrero MD Active AZO TABS TABLET 2 tabs qd PHENAZOPYRIDINE HCL TABS 07285440689 No Longer Active Tariq Marrero MD Active CIPROFLOXACIN HCL 250 MG ORAL TABLET 1 twice a day for bladder infection 2016 CIPROFLOXACIN HCL 48291057876 No Longer Active Tariq Marrero MD Active SM VITAMIN B12 TR 1000 MCG ORAL TABLET EXTENDED RELEASE 1 tab po daily 04/24 CYANOCOBALAMIN 25257026899 No Longer Active Nereyda Rodriguez APRN Active CARAFATE 1 GM ORAL TABLET 1 tab po as needed up to 4 times per day SUCRALFATE 28497285354 No Longer Active Nereyda Rodriguez APRN Active PNV PLUS MULTIVITAMIN 27-1 MG ORAL TABLET 1 daily 04/24 VIT-FE FUMARATE-FA 29005433739 No Longer Active Sasha Tan APRN Active CHANTIX STARTING MONTH DANILO 0.5 MG X 11 & 1 MG X 42 ORAL TABLET take as directed VARENICLINE TARTRATE 52787024151 No Longer Active Sasha Tan APRN Active CHANTIX 1 MG ORAL TABLET 1 twice a day to help quit smoking 04/24 VARENICLINE TARTRATE 06498219107 No Longer Active Sasha Tan APRN Active OMEPRAZOLE 20 MG ORAL CAPSULE DELAYED RELEASE 1 tablet by mouth daily OMEPRAZOLE 56210524383 Active Sasha Tan APRN Active FLINSTONES GUMMIES OMEGA-3 DHA ORAL TABLET CHEWABLE 2 gummies per day PEDIATRIC MULTIPLE VIT-C-FA 11544765843 Active Sasha Tan APRN Active CLINDAMYCIN HCL 150 MG ORAL CAPSULE 1 four times a day for 1 week CLINDAMYCIN HCL 09267188430 No Longer Active Karen Jaramillo MD Active TRIAMCINOLONE ACETONIDE 0.1 % EXTERNAL CREAM Apply to affected areas TID for up to 1 week TRIAMCINOLONE ACETONIDE 89714539300 No Longer Active Rian Ortega MD Active ZITHROMAX 1 GM ORAL PACKET Take 1 time and recheck lab in 2-3 weeks AZITHROMYCIN 18290801140 No Longer Active Rian Ortega MD Active FLAGYL 500 MG ORAL TABLET four tabs PO x 1 METRONIDAZOLE 73273752874 No Longer Active Aris Charlton MD Active AZO TABS TABLET 2 tabs qd AZO TABS TABLET PHENAZOPYRIDINE HCL TABS Inactive BACTRIM DS 800-160 MG ORAL TABLET 1 twice a day BACTRIM DS 800-160 MG ORAL TABLET 231149 SULFAMETHOXAZOLE-TRIMETHOPRIM Inactive CARAFATE 1 GM ORAL TABLET 1 tab po as needed up to 4 times per day CARAFATE 1 GM ORAL TABLET 833118 SUCRALFATE Inactive CIPRO 500 MG ORAL TABLET 1 tablet by mouth twice daily CIPRO 500 MG ORAL TABLET 827451 CIPROFLOXACIN HCL Inactive CLINDAMYCIN HCL 150 MG ORAL CAPSULE 1 four times a day for 1 week CLINDAMYCIN HCL 150 MG ORAL CAPSULE 239747 CLINDAMYCIN HCL Inactive CYCLOBENZAPRINE HCL 10 MG ORAL TABLET 1 three times a day as needed for muscle spasm CYCLOBENZAPRINE HCL 10 MG ORAL TABLET 180053 CYCLOBENZAPRINE HCL Inactive FLAGYL 500 MG ORAL TABLET four tabs PO x 1 FLAGYL 500 MG ORAL TABLET 428149 METRONIDAZOLE Inactive TRIAMCINOLONE ACETONIDE 0.1 % EXTERNAL CREAM Apply to affected areas TID for up to 1 week TRIAMCINOLONE ACETONIDE 0.1 % EXTERNAL CREAM 0722211 TRIAMCINOLONE ACETONIDE Inactive ZITHROMAX 1 GM ORAL PACKET Take 1 time and recheck lab in 2-3 weeks ZITHROMAX 1 GM ORAL PACKET 923497 AZITHROMYCIN Inactive AZITHROMYCIN 250 MG ORAL TABLET 2 po qd x 1 day, then 1 po qd x 4 days 02/15 AZITHROMYCIN 250 MG ORAL TABLET 619481 AZITHROMYCIN Inactive AZITHROMYCIN 250 MG ORAL TABLET 2 po qd x 1 day, then 1 po qd x 4 days 07/27 AZITHROMYCIN 250 MG ORAL TABLET 276711 AZITHROMYCIN Inactive CIPROFLOXACIN HCL 250 MG ORAL TABLET 1 twice a day for bladder infection 2016 CIPROFLOXACIN HCL 250 MG ORAL TABLET 028982 CIPROFLOXACIN HCL Inactive ZITHROMAX Z-DANILO 250 MG ORAL TABLET 2 today, then 1 daily for 4 days ZITHROMAX Z-DANILO 250 MG ORAL TABLET 935612 AZITHROMYCIN Inactive GUAIFENESIN ER 600 MG ORAL TABLET EXTENDED RELEASE 12 HOUR 1 twice a day as needed for congestion GUAIFENESIN ER 600 MG ORAL TABLET EXTENDED RELEASE 12 HOUR GUAIFENESIN Inactive CHANTIX 1 MG ORAL TABLET 1 twice a day to help quit smoking 04/24 CHANTIX 1 MG ORAL TABLET VARENICLINE TARTRATE Inactive SYMBICORT 160-4.5 MCG/ACT INHALATION AEROSOL 2 puff BID for 10 days SYMBICORT 160-4.5 MCG/ACT INHALATION AEROSOL BUDESONIDE- FORMOTEROL FUMARATE Inactive CHANTIX STARTING MONTH DANILO 0.5 MG X 11 & 1 MG X 42 ORAL TABLET take as directed CHANTIX STARTING MONTH DANILO 0.5 MG X 11 & 1 MG X 42 ORAL TABLET VARENICLINE TARTRATE Inactive SM VITAMIN B12 TR 1000 MCG ORAL TABLET EXTENDED RELEASE 1 tab po daily 04/24 SM VITAMIN B12 TR 1000 MCG ORAL TABLET EXTENDED RELEASE CYANOCOBALAMIN Inactive PNV PLUS MULTIVITAMIN 27-1 MG ORAL TABLET 1 daily 04/24 PNV PLUS MULTIVITAMIN 27-1 MG ORAL TABLET VIT-FE FUMARATE-FA Inactive Immunizations Vaccine Administration Date [...] leukocyte count, blood sent to [facility] 10^3/mm^3 10*3/mm3 4.6-10.2 Lab Report: CBC, Lipid Panel, Thyroid Stimulating Hormone (L), Free Thyr ... - Chemistry cholesterol, serum 142 mg/dL 361-526 1654/10/24 triglyceride, serum, fasting 77 mg/dL 30-200 HDL [...] Panel - Chemistry sodium, serum 137 mmol/L 042-135 6099/10/24 carbon dioxide, venous blood 24.4 mmol/L 21.0-32.0 [...] 1+ Encounters Code Encounter Date Provider Facility CPT-53161 [id number] Vst-Est Level III 16:46:54 CDT Tariq Marrero MD [facility] CPT-36556 Level 3 Est. Patient 14:41:20 CDT Tariq Marrero MD [facility] CPT-70555 Level 3 Est. Patient 11:06:09 ORDER ANALYST Carline Best [facility] CPT-30728 Level 3 Est. Patient 15:59:13 ORDER ANALYST Carline Best [facility] CPT-14741 Employment/ICC Exam 15:03:09 ORDER ANALYST Sasha Tan [facility] CPT-74381 Level 3 Est. Patient 11:54:40 CDT Rian Ortega MD [facility] CPT-68137 Level 3 Est. Patient 11:17:51 CDT Carline Best [facility] CPT-24994 Level 3 Est. Patient 15:43:38 CDT Tariq Marrero MD [facility] CPT-47039 Level 3 Est. Patient 11:16:27 ORDER ANALYST Nereyda Rodriguez [facility] CPT-22038 Level 4 Est. Patient 08:56:42 ORDER ANALYST Sasha Tan [facility] CPT-17127 Level 3 Est. Patient 16:40:58 CDT Rian Ortega MD [facility] CPT-81244 Level 3 Est. Patient 13:55:16 ORDER ANALYST Rian Ortega MD [facility] CPT-24189 Level 3 Est. Patient 10:42:52 CDT Corrinagodfrey Bailon [facility] CPT-76336 Level 3 Est. Patient 11:18:30 CDT Aris Charlton MD [facility] Procedures Code Procedure Name Date Entry Date Standard Description CPT-65014 Prv Med Est Pt 40-64yrs 16:49:40 CDT CPT-25953 UA w micro - LAB USE ONLY 13:09:18 ORDER ANALYST CPT-24213 Urine Culture - LAB USE ONLY 13:09:18 ORDER ANALYST CPT-21214 Wet Mount - LAB USE ONLY 11:11:39 ORDER ANALYST CPT-66043 Lipid - LAB USE ONLY 15:05:24 ORDER ANALYST CPT-98418 PT/INR - LAB USE ONLY 12:14:07 CDT CPT-21839 HGBA1C - LAB USE ONLY 12:14:07 CDT CPT-00520 CMP - LAB USE ONLY 12:14:07 CDT CPT-65263 CBC - LAB USE ONLY 12:14:07 CDT CPT-08654 Venipuncture Draw Fee 12:14:06 CDT CPT-J0702 Celestone 6 mg (Betamethasone) 15:04:45 ORDER ANALYST CPT-55840 Abx/Therapy Injection 15:04:45 ORDER ANALYST CPT-J0702 Celestone 12 mg (Betamethasone) 11:45:31 ORDER ANALYST CPT-55187 Visit 11:39:52 ORDER ANALYST CPT-53245T Sono biophysical pro wo stress test-[facility] 11:21: 42 ORDER ANALYST CPT-11295 Visit 16:00:50 ORDER ANALYST CPT-87334O Sono biophysical pro wo stress test-[facility] 13:12: 18 ORDER ANALYST CPT-59040 Sono biophysical pro wo stress test 11:17:21 ORDER ANALYST 05/21 CPT-57564 Tdap 7yrs or > 15:22:51 ORDER ANALYST CPT-03994 Immunization Single Admin 15:22:51 ORDER ANALYST CPT-43739 Tdap 7yrs or > 15:09:13 ORDER ANALYST CPT-47201 Visit 14:54:16 ORDER ANALYST CPT-19978 Fluzone Quadrivalent Intramuscular Suspension 0.5 ML 16: 58:58 CDT CPT-89246 Administration single or combination vaccine inc oral 16 :58:58 CDT CPT-19460 Fluzone Thim Free 36mo and older 14:47:39 CDT CPT-45829 Visit 14:47:39 CDT CPT-81702 Sono OB limited 10:30:07 CDT CPT-56107 Visit 10:04:44 CDT CPT-63692 Sono OB comp > 14 weeks 12:50:41 CDT CPT-19656 Visit 12:06:25 CDT CPT-41848 Visit 12:43:15 CDT CPT-85595 Visit 10:06:02 CDT CPT-30574 Spec Collection and Handling Fee 10:00:31 CDT CPT-48367 Visit 10:00:30 CDT CPT-74071 Drug Screen Grisel 14:36:13 CDT
--- OUTSIDE RECORDS SUMMARY | 2018-08-28 06:23 | XMS REPORT | Clinical Summary ---
Author Author Admin, E Organization [employer] Address Unknown Phone Unavailable Allergies, Adverse Reactions, [...] Active Rian Ortega MD Tobacco use disorder [employer] Operator well woman exam V72.31 Active Sasha Tan APRN Routine gynecological examination Bariatric operative procedure V45.86 Active Mariely King RMA Bariatric surgery status Physical examination V70.0 Active Sasha Tan APRN Routine general medical examination at a health care facility Dysuria 788.1 Resolved Rian Ortega MD Dysuria Urinary tract infection 599.0 Active Nereyda Rodriguez APRN Urinary tract infection, site not specified Bronchitis 490 Resolved Rain Ortega MD Bronchitis, not specified as acute [...] by mouth three times a day AMOXICILLIN 40165507884 Active Tariq Marrero MD Active BACTRIM DS 800-160 MG ORAL TABLET 1 twice a day SULFAMETHOXAZOLE-TRIMETHOPRIM 76881429313 No Longer Active Irma Michaels Active ZITHROMAX Z-DANILO 250 MG ORAL TABLET 2 today, then 1 daily for 4 days AZITHROMYCIN 91327541302 No Longer Active Mahsa Alvarez Active AZITHROMYCIN 250 MG ORAL TABLET 2 po qd x 1 day, then 1 po qd x 4 days 07/27 AZITHROMYCIN 51016088965 No Longer Active Carline Best APRN Active GUAIFENESIN ER 600 MG ORAL TABLET EXTENDED RELEASE 12 HOUR 1 twice a day as needed for congestion GUAIFENESIN 76572853058 No Longer Active Sasha Tan APRN Active CYCLOBENZAPRINE HCL 10 MG ORAL TABLET 1 three times a day as needed for muscle spasm CYCLOBENZAPRINE HCL 46561698467 No Longer Active Sasha Tan APRN Active SYMBICORT 160-4.5 MCG/ACT INHALATION AEROSOL 2 puff BID for 10 days BUDESONIDE-FORMOTEROL FUMARATE 64912258194 No Longer Active Rian Ortega MD Active AZITHROMYCIN 250 MG ORAL TABLET 2 po qd x 1 day, then 1 po qd x 4 days 02/15 AZITHROMYCIN 55555668771 No Longer Active Carline Best APRN Active CIPRO 500 MG ORAL TABLET 1 tablet by mouth twice daily CIPROFLOXACIN HCL 97972475226 No Longer Active Tariq Marrero MD Active AZO TABS TABLET 2 tabs qd PHENAZOPYRIDINE HCL TABS 80201450683 No Longer Active Tariq Marrero MD Active CIPROFLOXACIN HCL 250 MG ORAL TABLET 1 twice a day for bladder infection 2016 CIPROFLOXACIN HCL 54605381822 No Longer Active Tariq Marrero MD Active SM VITAMIN B12 TR 1000 MCG ORAL TABLET EXTENDED RELEASE 1 tab po daily 04/24 CYANOCOBALAMIN 09369520809 No Longer Active Nereyda Rodriguez APRN Active CARAFATE 1 GM ORAL TABLET 1 tab po as needed up to 4 times per day SUCRALFATE 71031948884 No Longer Active Nereyda Rodriguez APRN Active PNV PLUS MULTIVITAMIN 27-1 MG ORAL TABLET 1 daily 04/24 VIT-FE FUMARATE-FA 35105108171 No Longer Active Sasha Tan APRN Active CHANTIX STARTING MONTH DANILO 0.5 MG X 11 & 1 MG X 42 ORAL TABLET take as directed VARENICLINE TARTRATE 25183599550 No Longer Active Sasha Tan APRN Active CHANTIX 1 MG ORAL TABLET 1 twice a day to help quit smoking 04/24 VARENICLINE TARTRATE 17349922258 No Longer Active Sasha Tan APRN Active OMEPRAZOLE 20 MG ORAL CAPSULE DELAYED RELEASE 1 tablet by mouth daily OMEPRAZOLE 71295128503 Active Sasha Tan APRN Active FLINSTONES GUMMIES OMEGA-3 DHA ORAL TABLET CHEWABLE 2 gummies per day PEDIATRIC MULTIPLE VIT-C-FA 91260826046 Active Sasha Tan APRN Active CLINDAMYCIN HCL 150 MG ORAL CAPSULE 1 four times a day for 1 week CLINDAMYCIN HCL 16633731189 No Longer Active Karen Jaramillo MD Active TRIAMCINOLONE ACETONIDE 0.1 % EXTERNAL CREAM Apply to affected areas TID for up to 1 week TRIAMCINOLONE ACETONIDE 13069597755 No Longer Active Rian Ortega MD Active ZITHROMAX 1 GM ORAL PACKET Take 1 time and recheck lab in 2-3 weeks AZITHROMYCIN 18518492653 No Longer Active Rian Ortega MD Active FLAGYL 500 MG ORAL TABLET four tabs PO x 1 METRONIDAZOLE 01715733547 No Longer Active Aris Charlton MD Active AZO TABS TABLET 2 tabs qd AZO TABS TABLET PHENAZOPYRIDINE HCL TABS Inactive BACTRIM DS 800-160 MG ORAL TABLET 1 twice a day BACTRIM DS 800-160 MG ORAL TABLET 871759 SULFAMETHOXAZOLE-TRIMETHOPRIM Inactive CARAFATE 1 GM ORAL TABLET 1 tab po as needed up to 4 times per day CARAFATE 1 GM ORAL TABLET 437368 SUCRALFATE Inactive CIPRO 500 MG ORAL TABLET 1 tablet by mouth twice daily CIPRO 500 MG ORAL TABLET 351148 CIPROFLOXACIN HCL Inactive CLINDAMYCIN HCL 150 MG ORAL CAPSULE 1 four times a day for 1 week CLINDAMYCIN HCL 150 MG ORAL CAPSULE 453483 CLINDAMYCIN HCL Inactive CYCLOBENZAPRINE HCL 10 MG ORAL TABLET 1 three times a day as needed for muscle spasm CYCLOBENZAPRINE HCL 10 MG ORAL TABLET 651346 CYCLOBENZAPRINE HCL Inactive FLAGYL 500 MG ORAL TABLET four tabs PO x 1 FLAGYL 500 MG ORAL TABLET 004905 METRONIDAZOLE Inactive TRIAMCINOLONE ACETONIDE 0.1 % EXTERNAL CREAM Apply to affected areas TID for up to 1 week TRIAMCINOLONE ACETONIDE 0.1 % EXTERNAL CREAM 6051924 TRIAMCINOLONE ACETONIDE Inactive ZITHROMAX 1 GM ORAL PACKET Take 1 time and recheck lab in 2-3 weeks ZITHROMAX 1 GM ORAL PACKET 672330 AZITHROMYCIN Inactive AZITHROMYCIN 250 MG ORAL TABLET 2 po qd x 1 day, then 1 po qd x 4 days 02/15 AZITHROMYCIN 250 MG ORAL TABLET 448137 AZITHROMYCIN Inactive AZITHROMYCIN 250 MG ORAL TABLET 2 po qd x 1 day, then 1 po qd x 4 days 07/27 AZITHROMYCIN 250 MG ORAL TABLET 699473 AZITHROMYCIN Inactive CIPROFLOXACIN HCL 250 MG ORAL TABLET 1 twice a day for bladder infection 2016 CIPROFLOXACIN HCL 250 MG ORAL TABLET 113558 CIPROFLOXACIN HCL Inactive ZITHROMAX Z-DANILO 250 MG ORAL TABLET 2 today, then 1 daily for 4 days ZITHROMAX Z-DANILO 250 MG ORAL TABLET 840891 AZITHROMYCIN Inactive GUAIFENESIN ER 600 MG ORAL [...] - Hematology leukocyte count, blood sent to [facility] 10^3/mm^3 10*3/mm3 4.6-10.2 Lab Report: CBC, Lipid Panel, Thyroid Stimulating Hormone (L), Free Thyr ... - Chemistry cholesterol, serum 142 mg/dL 593-880 7493/10/24 triglyceride, serum, fasting 77 mg/dL 30-200 HDL [...] % 11.6-14.8 platelet count 291 10^3/MM^3 10*3/mm3 841-334 3368/10/24 mean corpuscular volume, RBC 90 fL 80-97 hematocrit, blood 40.6 % 37.0-47.0 hemoglobin, blood 13.3 g/dL 12.0-16.0 erythrocyte (RBC) count 4.51 10^6/MM^3 10*6/mm3 3.80-5.80 leukocyte count, blood 6.9 10^3/MM^3 10*3/mm3 4.6-10.2 Lab Report: Comp. Metabolic Panel - Chemistry sodium, serum 137 mmol/L 430-707 5235/10/24 carbon dioxide, venous blood 24.4 mmol/L [...] 1+ Encounters Code Encounter Date Provider Facility CPT-33243 [id number] Vst-Est Level III 16:46:54 CDT Tariq Marrero MD [facility] CPT-87448 Level 3 Est. Patient 14:41:20 CDT Tariq Marrero MD [facility] CPT-12461 Level 3 Est. Patient 11:06:09 RUBBING BED OPERATOR Carline Best [facility] CPT-12282 Level 3 Est. Patient 15:59:13 RUBBING BED OPERATOR Carline Best [facility] CPT-75845 Employment/ICC Exam 15:03:09 RUBBING BED OPERATOR Sasha Tan [facility] CPT-69493 Level 3 Est. Patient 11:54:40 CDT Rian Ortega MD [facility] CPT-19877 Level 3 Est. Patient 11:17:51 CDT Carline Best [facility]-56266 Level 3 Est. Patient 15:43:38 CDT Tariq Marrero MD [facility] CPT-88952 Level 3 Est. Patient 11:16:27 RUBBING BED OPERATOR Nereyda Rodriguez [facility] CPT-77785 Level 4 Est. Patient 08:56:42 RUBBING BED OPERATOR Sasha Tan [facility] CPT-26045 Level 3 Est. Patient 16:40:58 CDT Rian Ortega MD [facility] CPT-40436 Level 3 Est. Patient 13:55:16 RUBBING BED OPERATOR Rian Ortega MD [facility] CPT-46154 Level 3 Est. Patient 10:42:52 CDT Corrinagodfrey Bailon [facility] CPT-96514 Level 3 Est. Patient 11:18:30 CDT Aris Charlton MD [facility] Procedures Code Procedure Name Date Entry Date Standard Description CPT-18636 Prv Med Est Pt 40-64yrs 16:49:40 CDT CPT-10832 UA w micro - LAB USE ONLY 13:09:18 RUBBING BED OPERATOR CPT-94245 Urine Culture - LAB USE ONLY 13:09:18 RUBBING BED OPERATOR CPT-15051 Wet Mount - LAB USE ONLY 11:11:39 RUBBING BED OPERATOR CPT-47133 Lipid - LAB USE ONLY 15:05:24 RUBBING BED OPERATOR CPT-44722 PT/INR - LAB USE ONLY 12:14:07 CDT CPT-94265 HGBA1C - LAB USE ONLY 12:14:07 CDT CPT-52417 CMP - LAB USE ONLY 12:14:07 CDT CPT-91569 CBC - LAB USE ONLY 12:14:07 CDT CPT-39548 Venipuncture Draw Fee 12:14:06 CDT CPT-J0702 Celestone 6 mg (Betamethasone) 15:04:45 RUBBING BED OPERATOR CPT-58070 Abx/Therapy Injection 15:04:45 RUBBING BED OPERATOR CPT-J0702 Celestone 12 mg (Betamethasone) 11:45:31 RUBBING BED OPERATOR CPT-31542 Visit 11:39:52 RUBBING BED OPERATOR CPT-98643Y Sono biophysical pro wo stress test-[facility] 11:21: 42 RUBBING BED OPERATOR CPT-90616 Visit 16:00:50 RUBBING BED OPERATOR CPT-37577E Sono biophysical pro wo stress test-[facility] 13:12: 18 RUBBING BED OPERATOR CPT-64215 Sono biophysical pro wo stress test 11:17:21 RUBBING BED OPERATOR 05/21 CPT-99553 Tdap 7yrs or > 15:22:51 RUBBING BED OPERATOR CPT-97354 Immunization Single Admin 15:22:51 RUBBING BED OPERATOR CPT-13110 Tdap 7yrs or > 15:09:13 RUBBING BED OPERATOR CPT-04684 Visit 14:54:16 RUBBING BED OPERATOR CPT-36494 Fluzone Quadrivalent Intramuscular Suspension 0.5 ML 16: 58:58 CDT CPT-61718 Administration single or combination vaccine inc oral 16 :58:58 CDT CPT-77746 Fluzone Thim Free 36mo and older 14:47:39 CDT CPT-55650 Visit 14:47:39 CDT CPT-35168 Sono OB limited 10:30:07 CDT CPT-69026 Visit 10:04:44 CDT CPT-75320 Sono OB comp > 14 weeks 12:50:41 CDT CPT-43042 Visit 12:06:25 CDT CPT-74031 Visit 12:43:15 CDT CPT-82674 Visit 10:06:02 CDT CPT-51395 Spec Collection and Handling Fee 10:00:31 CDT CPT-49586 Visit 10:00:30 CDT CPT-26154 Drug Screen Grisel 14:36:13 CDT
--- OUTSIDE RECORDS SUMMARY | 2018-08-28 06:24 | XMS REPORT | Clinical Summary ---
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 V72.31 Active Sasha Tna APRN Routine gynecological examination Bariatric operative procedure [...] by mouth three times a day AMOXICILLIN 68691417827 Active Tariq Marrero MD Active BACTRIM DS 800-160 MG ORAL TABLET 1 twice a day SULFAMETHOXAZOLE-TRIMETHOPRIM 91198710022 No Longer Active Irma Michaels Active ZITHROMAX Z-DANILO 250 MG ORAL TABLET 2 today, then 1 daily for 4 days AZITHROMYCIN 06380246903 No Longer Active Mahsa Alvarez Active AZITHROMYCIN 250 MG ORAL TABLET 2 po qd x 1 day, then 1 po qd x 4 days 07/27 AZITHROMYCIN 45860310439 No Longer Active Carline Best APRN Active GUAIFENESIN ER 600 MG ORAL TABLET EXTENDED RELEASE 12 HOUR 1 twice a day as needed for congestion GUAIFENESIN 54455692731 No Longer Active Sasha Tan APRN Active CYCLOBENZAPRINE HCL 10 MG ORAL TABLET 1 three times a day as needed for muscle spasm CYCLOBENZAPRINE HCL 49323210156 No Longer Active Sasha Tan APRN Active SYMBICORT 160-4.5 MCG/ACT INHALATION AEROSOL 2 puff BID for 10 days BUDESONIDE-FORMOTEROL FUMARATE 23941579794 No Longer Active Rian Ortega MD Active AZITHROMYCIN 250 MG ORAL TABLET 2 po qd x 1 day, then 1 po qd x 4 days 02/15 AZITHROMYCIN 95532064050 No Longer Active Carline Best APRN Active CIPRO 500 MG ORAL TABLET 1 tablet by mouth twice daily CIPROFLOXACIN HCL 65596505135 No Longer Active Tariq Marrero MD Active AZO TABS TABLET 2 tabs qd PHENAZOPYRIDINE HCL TABS 29448625547 No Longer Active Tariq Marrero MD Active CIPROFLOXACIN HCL 250 MG ORAL TABLET 1 twice a day for bladder infection 2016 CIPROFLOXACIN HCL 23325967264 No Longer Active Tariq Marrero MD Active SM VITAMIN B12 TR 1000 MCG ORAL TABLET EXTENDED RELEASE 1 tab po daily 04/24 CYANOCOBALAMIN 66716067317 No Longer Active Nereyda Rodriguez APRN Active CARAFATE 1 GM ORAL TABLET 1 tab po as needed up to 4 times per day SUCRALFATE 68216295160 No Longer Active Nereyda Rodriguez APRN Active PNV PLUS MULTIVITAMIN 27-1 MG ORAL TABLET 1 daily 04/24 VIT-FE FUMARATE-FA 07738075134 No Longer Active Sasha Tan APRN Active CHANTIX STARTING MONTH DANILO 0.5 MG X 11 & 1 MG X 42 ORAL TABLET take as directed VARENICLINE TARTRATE 57250734191 No Longer Active Sasha Tan APRN Active CHANTIX 1 MG ORAL TABLET 1 twice a day to help quit smoking 04/24 VARENICLINE TARTRATE 88025876286 No Longer Active Sasha Tan APRN Active OMEPRAZOLE 20 MG ORAL CAPSULE DELAYED RELEASE 1 tablet by mouth daily OMEPRAZOLE 15504380598 Active Sasha Tan APRN Active FLINSTONES GUMMIES OMEGA-3 DHA ORAL TABLET CHEWABLE 2 gummies per day PEDIATRIC MULTIPLE VIT-C-FA 53991501514 Active Sasha Tan APRN Active CLINDAMYCIN HCL 150 MG ORAL CAPSULE 1 four times a day for 1 week CLINDAMYCIN HCL 98966560527 No Longer Active Karen Jaramillo MD Active TRIAMCINOLONE ACETONIDE 0.1 % EXTERNAL CREAM Apply to affected areas TID for up to 1 week TRIAMCINOLONE ACETONIDE 92052761175 No Longer Active Rian Ortega MD Active ZITHROMAX 1 GM ORAL PACKET Take 1 time and recheck lab in 2-3 weeks AZITHROMYCIN 82476293770 No Longer Active Rian Ortega MD Active FLAGYL 500 MG ORAL TABLET four tabs PO x 1 METRONIDAZOLE 15311715949 No Longer Active Aris Charlton MD Active FLAGYL 500 MG ORAL TABLET four tabs PO x 1 FLAGYL 500 MG ORAL TABLET 762566 METRONIDAZOLE Inactive ZITHROMAX 1 GM ORAL PACKET Take 1 time and recheck lab in 2-3 weeks ZITHROMAX 1 GM ORAL PACKET 825826 AZITHROMYCIN Inactive TRIAMCINOLONE ACETONIDE 0.1 % EXTERNAL CREAM Apply to affected areas TID for up to 1 week TRIAMCINOLONE ACETONIDE 0.1 % EXTERNAL CREAM 4593704 TRIAMCINOLONE ACETONIDE Inactive CLINDAMYCIN HCL 150 MG ORAL CAPSULE 1 four times a day for 1 week CLINDAMYCIN HCL 150 MG ORAL CAPSULE 907058 CLINDAMYCIN HCL Inactive CHANTIX 1 MG ORAL [...] per day CARAFATE 1 GM ORAL TABLET 313140 SUCRALFATE Inactive SM VITAMIN B12 TR 1000 MCG ORAL TABLET EXTENDED RELEASE 1 tab po daily 04/24 SM VITAMIN B12 TR 1000 MCG ORAL TABLET EXTENDED RELEASE CYANOCOBALAMIN Inactive CIPROFLOXACIN HCL 250 MG ORAL TABLET 1 twice a day for bladder infection 2016 CIPROFLOXACIN HCL 250 MG ORAL TABLET 460138 CIPROFLOXACIN HCL Inactive AZO TABS TABLET 2 tabs qd AZO TABS TABLET PHENAZOPYRIDINE HCL TABS Inactive SYMBICORT 160-4.5 MCG/ACT INHALATION AEROSOL 2 puff BID for 10 days SYMBICORT 160-4.5 MCG/ACT INHALATION AEROSOL BUDESONIDE- FORMOTEROL FUMARATE Inactive CYCLOBENZAPRINE HCL 10 MG ORAL TABLET 1 three times a day as needed for muscle spasm CYCLOBENZAPRINE HCL 10 MG ORAL TABLET 628557 CYCLOBENZAPRINE HCL Inactive GUAIFENESIN ER 600 MG ORAL TABLET EXTENDED RELEASE 12 HOUR 1 twice a day as needed for congestion GUAIFENESIN ER 600 MG ORAL TABLET EXTENDED RELEASE 12 HOUR GUAIFENESIN Inactive BACTRIM DS 800-160 MG ORAL TABLET 1 twice a day BACTRIM DS 800-160 MG ORAL TABLET 083733 SULFAMETHOXAZOLE-TRIMETHOPRIM Inactive CIPRO 500 MG ORAL TABLET 1 tablet by mouth twice daily CIPRO 500 MG ORAL TABLET 525080 CIPROFLOXACIN HCL Inactive AZITHROMYCIN 250 MG ORAL TABLET 2 po qd x 1 day, then 1 po qd x 4 days 02/15 AZITHROMYCIN 250 MG ORAL TABLET 806195 AZITHROMYCIN Inactive AZITHROMYCIN 250 MG ORAL TABLET 2 po qd x 1 day, then 1 po qd x 4 days 07/27 AZITHROMYCIN 250 MG ORAL TABLET 766115 AZITHROMYCIN Inactive ZITHROMAX Z-DANILO 250 MG ORAL TABLET 2 today, then 1 daily for 4 days ZITHROMAX Z-DANILO 250 MG ORAL TABLET 064419 AZITHROMYCIN Inactive Immunizations Vaccine Administration Date Value [...] - Hematology leukocyte count, blood sent to [facility] 10^3/mm^3 10*3/mm3 4.6-10.2 Lab Report: CBC, Lipid Panel, Thyroid Stimulating Hormone (L), Free Thyr ... - Chemistry cholesterol, serum 142 mg/dL 620-711 4563/10/24 triglyceride, serum, fasting 77 mg/dL 30-200 HDL [...] Panel - Chemistry sodium, serum 137 mmol/L 908-162 2341/10/24 carbon dioxide, venous blood 24.4 mmol/L 21.0-32.0 [...] 1+ Encounters Code Encounter Date Provider Facility CPT-08580 [id number] Vst-Est Level III 16:46:54 CDT Tariq Marrero MD [facility] CPT-19597 Level 3 Est. Patient 14:41:20 CDT Tariq Marrero MD [facility] CPT-34686 Level 3 Est. Patient 11:06:09 HOUSE COORDINATOR Carline Best [facility] CPT-81579 Level 3 Est. Patient 15:59:13 HOUSE COORDINATOR Carline Best [facility] CPT-72862 Employment/ICC Exam 15:03:09 HOUSE COORDINATOR Sasha Tan [facility] [place] CPT-26313 Level 3 Est. Patient 11:54:40 CDT Rian Ortega MD [facility] CPT-61478 Level 3 Est. Patient 11:17:[address] [facility]-92514 Level 3 Est. Patient 15:43:38 CDT Tariq Marrero MD [facility] CPT-00979 Level 3 Est. Patient 11:16:27 HOUSE COORDINATOR Nereyda Rodriguez [facility] [place] CPT-11557 Level 4 Est. Patient 08:56:42 HOUSE COORDINATOR Sasha Tan [facility] [place] CPT-36271 Level 3 Est. Patient 16:40:58 CDT Rian Ortega MD [facility] CPT-46004 Level 3 Est. Patient 13:55:16 HOUSE COORDINATOR Rian Ortega MD [facility] CPT-18820 Level 3 Est. Patient 10:42:52 CDT Corrinagodfrey Bailon [facility] CPT-47748 Level 3 Est. Patient 11:18:30 CDT Aris Charlton MD [facility] Procedures Code Procedure Name Date Entry Date Standard Description CPT-71938 Prv Med Est Pt 40-64yrs 16:49:40 CDT CPT-70863 UA w micro - LAB USE ONLY 13:09:18 HOUSE COORDINATOR CPT-58528 Urine Culture - LAB USE ONLY 13:09:18 HOUSE COORDINATOR CPT-97632 Wet Mount - LAB USE ONLY 11:11:39 HOUSE COORDINATOR CPT-50237 Lipid - LAB USE ONLY 15:05:24 HOUSE COORDINATOR CPT-26870 PT/INR - LAB USE ONLY 12:14:07 CDT CPT-12713 HGBA1C - LAB USE ONLY 12:14:07 CDT CPT-46422 CMP - LAB USE ONLY 12:14:07 CDT CPT-53605 CBC - LAB USE ONLY 12:14:07 CDT CPT-72777 Venipuncture Draw Fee 12:14:06 CDT CPT-J0702 Celestone 6 mg (Betamethasone) 15:04:45 HOUSE COORDINATOR CPT-19392 Abx/Therapy Injection 15:04:45 HOUSE COORDINATOR CPT-J0702 Celestone 12 mg (Betamethasone) 11:45:31 HOUSE COORDINATOR CPT-11446 Visit 11:39:52 HOUSE COORDINATOR CPT-47437I Sono biophysical pro wo stress test-[facility] 11:21: 42 HOUSE COORDINATOR CPT-87987 Visit 16:00:50 HOUSE COORDINATOR CPT-91604T Sono biophysical pro wo stress test-[facility] 13:12: 18 HOUSE COORDINATOR CPT-58898 Sono biophysical pro wo stress test 11:17:21 HOUSE COORDINATOR 05/21 CPT-88366 Tdap 7yrs or > 15:22:51 HOUSE COORDINATOR CPT-69080 Immunization Single Admin 15:22:51 HOUSE COORDINATOR CPT-30656 Tdap 7yrs or > 15:09:13 HOUSE COORDINATOR CPT-63921 Visit 14:54:16 HOUSE COORDINATOR CPT-92246 Fluzone Quadrivalent Intramuscular Suspension 0.5 ML 16: 58:58 CDT CPT-29031 Administration single or combination vaccine inc oral 16 :58:58 CDT CPT-07034 Fluzone Thim Free 36mo and older 14:47:39 CDT CPT-89058 Visit 14:47:39 CDT CPT-46136 Sono OB limited 10:30:07 CDT CPT-04287 Visit 10:04:44 CDT CPT-99050 Sono OB comp > 14 weeks 12:50:41 CDT CPT-58229 Visit 12:06:25 CDT CPT-18223 Visit 12:43:15 CDT CPT-57739 Visit 10:06:02 CDT CPT-65461 Spec Collection and Handling Fee 10:00:31 CDT CPT-48532 Visit 10:00:30 CDT CPT-01443 Drug Screen Grisel 14:36:13 CDT
--- OUTSIDE RECORDS SUMMARY | 2018-08-28 06:24 | XMS REPORT | Clinical Summary ---
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 Sasha Tan [...] by mouth three times a day AMOXICILLIN 10122873309 Active Tariq Marrero MD Active BACTRIM DS 800-160 MG ORAL TABLET 1 twice a day SULFAMETHOXAZOLE-TRIMETHOPRIM 39778846169 No Longer Active Irma Michaels Active ZITHROMAX Z-DANILO 250 MG ORAL TABLET 2 today, then 1 daily for 4 days AZITHROMYCIN 52953133124 No Longer Active Mahsa Alvarez Active AZITHROMYCIN 250 MG ORAL TABLET 2 po qd x 1 day, then 1 po qd x 4 days 07/27 AZITHROMYCIN 95522304537 No Longer Active Carline Best APRN Active GUAIFENESIN ER 600 MG ORAL TABLET EXTENDED RELEASE 12 HOUR 1 twice a day as needed for congestion GUAIFENESIN 08153247110 No Longer Active Sasha Tan APRN Active CYCLOBENZAPRINE HCL 10 MG ORAL TABLET 1 three times a day as needed for muscle spasm CYCLOBENZAPRINE HCL 50872142524 No Longer Active Sasha Tan APRN Active SYMBICORT 160-4.5 MCG/ACT INHALATION AEROSOL 2 puff BID for 10 days BUDESONIDE-FORMOTEROL FUMARATE 31241679239 No Longer Active Rian Ortega MD Active AZITHROMYCIN 250 MG ORAL TABLET 2 po qd x 1 day, then 1 po qd x 4 days 02/15 AZITHROMYCIN 77430238444 No Longer Active Carline Best APRN Active CIPRO 500 MG ORAL TABLET 1 tablet by mouth twice daily CIPROFLOXACIN HCL 85602229732 No Longer Active Tariq Marrero MD Active AZO TABS TABLET 2 tabs qd PHENAZOPYRIDINE HCL TABS 94811441951 No Longer Active Tariq Marrero MD Active CIPROFLOXACIN HCL 250 MG ORAL TABLET 1 twice a day for bladder infection 2016 CIPROFLOXACIN HCL 66006329463 No Longer Active Tariq Marrero MD Active SM VITAMIN B12 TR 1000 MCG ORAL TABLET EXTENDED RELEASE 1 tab po daily 04/24 CYANOCOBALAMIN 25530526817 No Longer Active Nereyda Rodriguez APRN Active CARAFATE 1 GM ORAL TABLET 1 tab po as needed up to 4 times per day SUCRALFATE 72878203486 No Longer Active Nereyda Rodriguez APRN Active PNV PLUS MULTIVITAMIN 27-1 MG ORAL TABLET 1 daily 04/24 VIT-FE FUMARATE-FA 82017398782 No Longer Active Sasha Tan APRN Active CHANTIX STARTING MONTH DANILO 0.5 MG X 11 & 1 MG X 42 ORAL TABLET take as directed VARENICLINE TARTRATE 46304195511 No Longer Active Sasha Tan APRN Active CHANTIX 1 MG ORAL TABLET 1 twice a day to help quit smoking 04/24 VARENICLINE TARTRATE 50483534369 No Longer Active Sasha Tan APRN Active OMEPRAZOLE 20 MG ORAL CAPSULE DELAYED RELEASE 1 tablet by mouth daily OMEPRAZOLE 63401880999 Active Sasha Tan APRN Active FLINSTONES GUMMIES OMEGA-3 DHA ORAL TABLET CHEWABLE 2 gummies per day PEDIATRIC MULTIPLE VIT-C-FA 46986063411 Active Sasha Tan APRN Active CLINDAMYCIN HCL 150 MG ORAL CAPSULE 1 four times a day for 1 week CLINDAMYCIN HCL 06924660256 No Longer Active Karen Jaramillo MD Active TRIAMCINOLONE ACETONIDE 0.1 % EXTERNAL CREAM Apply to affected areas TID for up to 1 week TRIAMCINOLONE ACETONIDE 54802921055 No Longer Active Rian Ortega MD Active ZITHROMAX 1 GM ORAL PACKET Take 1 time and recheck lab in 2-3 weeks AZITHROMYCIN 02782691527 No Longer Active Rian Ortega MD Active FLAGYL 500 MG ORAL TABLET four tabs PO x 1 METRONIDAZOLE 56792892872 No Longer Active Aris Charlton MD Active FLAGYL 500 MG ORAL TABLET four tabs PO x 1 FLAGYL 500 MG ORAL TABLET 760019 METRONIDAZOLE Inactive ZITHROMAX 1 GM ORAL PACKET Take 1 time and recheck lab in 2-3 weeks ZITHROMAX 1 GM ORAL PACKET 917150 AZITHROMYCIN Inactive TRIAMCINOLONE ACETONIDE 0.1 % EXTERNAL CREAM Apply to affected areas TID for up to 1 week TRIAMCINOLONE ACETONIDE 0.1 % EXTERNAL CREAM 8006463 TRIAMCINOLONE ACETONIDE Inactive CLINDAMYCIN HCL 150 MG ORAL CAPSULE 1 four times a day for 1 week CLINDAMYCIN HCL 150 MG ORAL CAPSULE 115470 CLINDAMYCIN HCL Inactive CHANTIX 1 MG ORAL [...] per day CARAFATE 1 GM ORAL TABLET 469101 SUCRALFATE Inactive SM VITAMIN B12 TR 1000 MCG ORAL TABLET EXTENDED RELEASE 1 tab po daily 04/24 SM VITAMIN B12 TR 1000 MCG ORAL TABLET EXTENDED RELEASE CYANOCOBALAMIN Inactive CIPROFLOXACIN HCL 250 MG ORAL TABLET 1 twice a day for bladder infection 2016 CIPROFLOXACIN HCL 250 MG ORAL TABLET 144497 CIPROFLOXACIN HCL Inactive AZO TABS TABLET 2 tabs qd AZO TABS TABLET PHENAZOPYRIDINE HCL TABS Inactive SYMBICORT 160-4.5 MCG/ACT INHALATION AEROSOL 2 puff BID for 10 days SYMBICORT 160-4.5 MCG/ACT INHALATION AEROSOL BUDESONIDE- FORMOTEROL FUMARATE Inactive CYCLOBENZAPRINE HCL 10 MG ORAL TABLET 1 three times a day as needed for muscle spasm CYCLOBENZAPRINE HCL 10 MG ORAL TABLET 023836 CYCLOBENZAPRINE HCL Inactive GUAIFENESIN ER 600 MG ORAL TABLET EXTENDED RELEASE 12 HOUR 1 twice a day as needed for congestion GUAIFENESIN ER 600 MG ORAL TABLET EXTENDED RELEASE 12 HOUR GUAIFENESIN Inactive BACTRIM DS 800-160 MG ORAL TABLET 1 twice a day BACTRIM DS 800-160 MG ORAL TABLET 952946 SULFAMETHOXAZOLE-TRIMETHOPRIM Inactive CIPRO 500 MG ORAL TABLET 1 tablet by mouth twice daily CIPRO 500 MG ORAL TABLET 259759 CIPROFLOXACIN HCL Inactive AZITHROMYCIN 250 MG ORAL TABLET 2 po qd x 1 day, then 1 po qd x 4 days 02/15 AZITHROMYCIN 250 MG ORAL TABLET 938113 AZITHROMYCIN Inactive AZITHROMYCIN 250 MG ORAL TABLET 2 po qd x 1 day, then 1 po qd x 4 days 07/27 AZITHROMYCIN 250 MG ORAL TABLET 560910 AZITHROMYCIN Inactive ZITHROMAX Z-DANILO 250 MG ORAL TABLET 2 today, then 1 daily for 4 days ZITHROMAX Z-DANILO 250 MG ORAL TABLET 192558 AZITHROMYCIN Inactive Immunizations Vaccine Administration Date Value [...] leukocyte count, blood sent to [facility] 10^3/mm^3 10*3/mm3 4.6-10.2 Lab Report: CBC, Lipid Panel, Thyroid Stimulating Hormone (L), Free Thyr ... - Chemistry cholesterol, serum 142 mg/dL 826-793 9948/10/24 triglyceride, serum, fasting 77 mg/dL 30-200 HDL [...] % 11.6-14.8 platelet count 291 10^3/MM^3 10*3/mm3 935-112 2692/10/24 mean corpuscular volume, RBC 90 fL 80-97 hematocrit, blood 40.6 % 37.0-47.0 hemoglobin, blood 13.3 g/dL 12.0-16.0 erythrocyte (RBC) count 4.51 10^6/MM^3 10*6/mm3 3.80-5.80 leukocyte count, blood 6.9 10^3/MM^3 10*3/mm3 4.6-10.2 Lab Report: Comp. Metabolic Panel - Chemistry sodium, serum 137 mmol/L 240-286 1534/10/24 carbon dioxide, venous blood 24.4 mmol/L 21.0-32.0 [...] 1+ Encounters Code Encounter Date Provider Facility CPT-19857 [id number] Vst-Est Level III 16:46:54 CDT Tariq Marrero MD [facility] CPT-57011 Level 3 Est. Patient 14:41:20 CDT Tariq Marrero MD [facility] CPT-43846 Level 3 Est. Patient 11:06:09 CLAIM MANAGER Carline Best [facility] CPT-90426 Level 3 Est. Patient 15:59:13 CLAIM MANAGER Carline Best [facility] CPT-55326 Employment/ICC Exam 15:03:09 CLAIM MANAGER Sasha Tan [facility] CPT-74807 Level 3 Est. Patient 11:54:40 CDT Rian Ortega MD [facility] CPT-21311 Level 3 Est. Patient 11:17:51 CDT Carline Best [facility]-27533 Level 3 Est. Patient 15:43:38 CDT Tariq Marrero MD [facility] CPT-27110 Level 3 Est. Patient 11:16:27 CLAIM MANAGER Nereyda Rodriguez [facility] CPT-89449 Level 4 Est. Patient 08:56:42 CLAIM MANAGER Sasha Tan [facility] CPT-67735 Level 3 Est. Patient 16:40:58 CDT Rian Ortega MD [facility] CPT-06273 Level 3 Est. Patient 13:55:16 CLAIM MANAGER Rian Ortega MD [facility] CPT-04126 Level 3 Est. Patient 10:42:52 CDT Corrinagodfrey [place]on [facility] CPT-69940 Level 3 Est. Patient 11:18:30 CDT Aris Charlton MD [facility] Procedures Code Procedure Name Date Entry Date Standard Description CPT-52319 Prv Med Est Pt 40-64yrs 16:49:40 CDT CPT-29425 UA w micro - LAB USE ONLY 13:09:18 CLAIM MANAGER CPT-37329 Urine Culture - LAB USE ONLY 13:09:18 CLAIM MANAGER CPT-06021 Wet Mount - LAB USE ONLY 11:11:39 CLAIM MANAGER CPT-69884 Lipid - LAB USE ONLY 15:05:24 CLAIM MANAGER CPT-93772 PT/INR - LAB USE ONLY 12:14:07 CDT CPT-59731 HGBA1C - LAB USE ONLY 12:14:07 CDT CPT-12403 CMP - LAB USE ONLY 12:14:07 CDT CPT-33017 CBC - LAB USE ONLY 12:14:07 CDT CPT-30550 Venipuncture Draw Fee 12:14:06 CDT CPT-J0702 Celestone 6 mg (Betamethasone) 15:04:45 CLAIM MANAGER CPT-55212 Abx/Therapy Injection 15:04:45 CLAIM MANAGER CPT-J0702 Celestone 12 mg (Betamethasone) 11:45:31 CLAIM MANAGER CPT-75236 Visit 11:39:52 CLAIM MANAGER CPT-75638X Sono biophysical pro wo stress test-[facility] 11:21: 42 CLAIM MANAGER CPT-50719 Visit 16:00:50 CLAIM MANAGER CPT-16367L Sono biophysical pro wo stress test-[facility] 13:12: 18 CLAIM MANAGER CPT-98537 Sono biophysical pro wo stress test 11:17:21 CLAIM MANAGER 05/21 CPT-36981 Tdap 7yrs or > 15:22:51 CLAIM MANAGER CPT-08712 Immunization Single Admin 15:22:51 CLAIM MANAGER CPT-52075 Tdap 7yrs or > 15:09:13 CLAIM MANAGER CPT-45383 Visit 14:54:16 CLAIM MANAGER CPT-06262 Fluzone Quadrivalent Intramuscular Suspension 0.5 ML 16: 58:58 CDT CPT-26971 Administration single or combination vaccine inc oral 16 :58:58 CDT CPT-94327 Fluzone Thim Free 36mo and older 14:47:39 CDT CPT-62624 Visit 14:47:39 CDT CPT-18214 Sono OB limited 10:30:07 CDT CPT-96765 Visit 10:04:44 CDT CPT-90218 Sono OB comp > 14 weeks 12:50:41 CDT CPT-30202 Visit 12:06:25 CDT CPT-20791 Visit 12:43:15 CDT CPT-84316 Visit 10:06:02 CDT CPT-27429 Spec Collection and Handling Fee 10:00:31 CDT CPT-00303 Visit 10:00:30 CDT CPT-93806 Drug Screen [place]isel 14:36:13 CDT
--- OUTSIDE RECORDS SUMMARY | 2018-08-28 06:25 | XMS REPORT | Clinical Summary ---
Author Author Admin, E Organization [facility] Address Unknown Phone Unavailable Allergies, [...] Rian Ortega MD Tobacco use disorder Director Of Therapy Services well woman exam V72.31 Active Sasha Tan [...] MD Vaginal bleeding, second trimester ICD-641.93 Inactive Rina Ortega MD Trichomonal vaginitis ICD-131.01 Inactive Rian [...] ORAL TABLET 1 twice a day SULFAMETHOXAZOLE-TRIMETHOPRIM 00542157648 Active Angelica Jarrett ATMOSPHERIC PHYSICIST Active ZITHROMAX Z-DANILO 250 MG ORAL TABLET 2 today, then 1 daily for 4 days AZITHROMYCIN 91396687870 No Longer Active Mahsa Alvarez Active AZITHROMYCIN 250 MG ORAL TABLET 2 po qd x 1 day, then 1 po qd x 4 days 07/27 AZITHROMYCIN 58789669125 No Longer Active Carline Best RAW SAMPLER Active GUAIFENESIN ER 600 MG ORAL TABLET EXTENDED RELEASE 12 HOUR 1 twice a day as needed for congestion GUAIFENESIN 77901943923 No Longer Active Sasha Tan APRN Active CYCLOBENZAPRINE HCL 10 MG ORAL TABLET 1 three times a day as needed for muscle spasm CYCLOBENZAPRINE HCL 74989292132 No Longer Active Sasha Tan APRN Active SYMBICORT 160-4.5 MCG/ACT INHALATION AEROSOL 2 puff BID for 10 days BUDESONIDE-FORMOTEROL FUMARATE 06947707502 No Longer Active Rian Ortega MD Active AZITHROMYCIN 250 MG ORAL TABLET 2 po qd x 1 day, then 1 po qd x 4 days 02/15 AZITHROMYCIN 80422602099 No Longer Active Carline Best APRN Active CIPRO 500 MG ORAL TABLET 1 tablet by mouth twice daily CIPROFLOXACIN HCL 13611073027 No Longer Active Tariq Marrero MD Active AZO TABS TABLET 2 tabs qd PHENAZOPYRIDINE HCL TABS 59537918191 No Longer Active Tariq Marrero MD Active CIPROFLOXACIN HCL 250 MG ORAL TABLET 1 twice a day for bladder infection 2016 CIPROFLOXACIN HCL 84186195776 No Longer Active Tariq Marrero MD Active SM VITAMIN B12 TR 1000 MCG ORAL TABLET EXTENDED RELEASE 1 tab po daily 04/24 CYANOCOBALAMIN 80220847667 No Longer Active Nereyda Rodriguez APRN Active CARAFATE 1 GM ORAL TABLET 1 tab po as needed up to 4 times per day SUCRALFATE 64767206368 No Longer Active Nereyda Rodriguez APRN Active PNV PLUS MULTIVITAMIN 27-1 MG ORAL TABLET 1 daily 04/24 VIT-FE FUMARATE-FA 90115636858 No Longer Active Sasha Tan APRN Active CHANTIX STARTING MONTH DANILO 0.5 MG X 11 & 1 MG X 42 ORAL TABLET take as directed VARENICLINE TARTRATE 42259555413 No Longer Active Sasha Tan APRN Active CHANTIX 1 MG ORAL TABLET 1 twice a day to help quit smoking 04/24 VARENICLINE TARTRATE 74503841170 No Longer Active Sasha Tan APRN Active OMEPRAZOLE 20 MG ORAL CAPSULE DELAYED RELEASE 1 tablet by mouth daily OMEPRAZOLE 61153619680 Active Sasha Tan APRN Active FLINSTONES GUMMIES OMEGA-3 DHA ORAL TABLET CHEWABLE 2 gummies per day PEDIATRIC MULTIPLE VIT-C-FA 54264701582 Active Sasha Tan APRN Active CLINDAMYCIN HCL 150 MG ORAL CAPSULE 1 four times a day for 1 week CLINDAMYCIN HCL 49127188806 No Longer Active Karen Jaramillo MD Active TRIAMCINOLONE ACETONIDE 0.1 % EXTERNAL CREAM Apply to affected areas TID for up to 1 week TRIAMCINOLONE ACETONIDE 40491389602 No Longer Active Rian Ortega MD Active ZITHROMAX 1 GM ORAL PACKET Take 1 time and recheck lab in 2-3 weeks AZITHROMYCIN 95710285968 No Longer Active Rian Ortega MD Active FLAGYL 500 MG ORAL TABLET four tabs PO x 1 METRONIDAZOLE 49922322744 No Longer Active Aris Charlton MD Active FLAGYL 500 MG ORAL TABLET four tabs PO x 1 FLAGYL 500 MG ORAL TABLET 458210 METRONIDAZOLE Inactive ZITHROMAX 1 GM ORAL PACKET Take 1 time and recheck lab in 2-3 weeks ZITHROMAX 1 GM ORAL PACKET 347086 AZITHROMYCIN Inactive TRIAMCINOLONE ACETONIDE 0.1 % EXTERNAL CREAM Apply to affected areas TID for up to 1 week TRIAMCINOLONE ACETONIDE 0.1 % EXTERNAL CREAM 3185570 TRIAMCINOLONE ACETONIDE Inactive CLINDAMYCIN HCL 150 MG ORAL CAPSULE 1 four times a day for 1 week CLINDAMYCIN HCL 150 MG ORAL CAPSULE 876665 CLINDAMYCIN HCL Inactive CHANTIX 1 MG ORAL [...] per day CARAFATE 1 GM ORAL TABLET 305345 SUCRALFATE Inactive SM VITAMIN B12 TR 1000 MCG ORAL TABLET EXTENDED RELEASE 1 tab po daily 04/24 SM VITAMIN B12 TR 1000 MCG ORAL TABLET EXTENDED RELEASE CYANOCOBALAMIN Inactive CIPROFLOXACIN HCL 250 MG ORAL TABLET 1 twice a day for bladder infection 2016 CIPROFLOXACIN HCL 250 MG ORAL TABLET 680812 CIPROFLOXACIN HCL Inactive AZO TABS TABLET 2 tabs qd AZO TABS TABLET PHENAZOPYRIDINE HCL TABS Inactive SYMBICORT 160-4.5 MCG/ACT INHALATION AEROSOL 2 puff BID for 10 days SYMBICORT 160-4.5 MCG/ACT INHALATION AEROSOL BUDESONIDE- FORMOTEROL FUMARATE Inactive CYCLOBENZAPRINE HCL 10 MG ORAL TABLET 1 three times a day as needed for muscle spasm CYCLOBENZAPRINE HCL 10 MG ORAL TABLET 341556 CYCLOBENZAPRINE HCL Inactive GUAIFENESIN ER 600 MG ORAL TABLET EXTENDED RELEASE 12 HOUR 1 twice a day as needed for congestion GUAIFENESIN ER 600 MG ORAL TABLET EXTENDED RELEASE 12 HOUR GUAIFENESIN Inactive CIPRO 500 MG ORAL TABLET 1 tablet by mouth twice daily CIPRO 500 MG ORAL TABLET 990864 CIPROFLOXACIN HCL Inactive AZITHROMYCIN 250 MG ORAL TABLET 2 po qd x 1 day, then 1 po qd x 4 days 02/15 AZITHROMYCIN 250 MG ORAL TABLET 643325 AZITHROMYCIN Inactive AZITHROMYCIN 250 MG ORAL TABLET 2 po qd x 1 day, then 1 po qd x 4 days 07/27 AZITHROMYCIN 250 MG ORAL TABLET 175272 AZITHROMYCIN Inactive ZITHROMAX Z-DANILO 250 MG ORAL TABLET 2 today, then 1 daily for 4 days ZITHROMAX Z-DANILO 250 MG ORAL TABLET 416202 AZITHROMYCIN Inactive Immunizations Vaccine Administration Date Value [...] Hematology leukocyte count, blood sent to [facility] 10^3/mm^3 10*3/mm3 4.6-10.2 Lab Report: CBC, Lipid Panel, Thyroid Stimulating Hormone (L), Free Thyr ... - Chemistry cholesterol, serum 142 mg/dL 784-027 2487/10/24 triglyceride, serum, fasting 77 mg/dL 30-200 HDL [...] Panel - Chemistry sodium, serum 137 mmol/L 171-531 3886/10/24 carbon dioxide, venous blood 24.4 mmol/L 21.0-32.0 [...] 1+ Encounters Code Encounter Date Provider Facility CPT-24655 Level 3 Est. Patient 14:41:20 CDT Tariq Marrero MD [facility] CPT-98154 Level 3 Est. Patient 11:06:09 BRIM GREASER OPERATOR Carline Best [facility] CPT-67078 Level 3 Est. Patient 15:59:13 BRIM GREASER OPERATOR Carline Best [facility] CPT-09401 Employment/ICC Exam 15:03:09 BRIM GREASER OPERATOR Sasha Tan [facility] CPT-61185 Level 3 Est. Patient 11:54:40 CDT Rian Ortega MD [facility] CPT-64022 Level 3 Est. Patient 11:17:51 CDT Carline Best [facility] CPT-63376 Level 3 Est. Patient 15:43:38 CDT Tariq Marrero MD [facility] CPT-95641 Level 3 Est. Patient 11:16:27 BRIM GREASER OPERATOR Nereyda Rodriguez [facility] CPT-78237 Level 4 Est. Patient 08:56:42 BRIM GREASER OPERATOR Sasha Tan [facility] CPT-35389 Level 3 Est. Patient 16:40:58 CDT Rian Ortega MD [facility] CPT-01798 Level 3 Est. Patient 13:55:16 BRIM GREASER OPERATOR Rian Ortega MD [facility] CPT-15734 Level 3 Est. Patient 10:42:52 CDT Corrina Bailon [facility] CPT-46682 Level 3 Est. Patient 11:18:30 CDT Aris Charlton MD [facility] Procedures Code Procedure Name Date Entry Date Standard Description CPT-59201 UA w micro - LAB USE ONLY 13:09:18 BRIM GREASER OPERATOR CPT-75311 Urine Culture - LAB USE ONLY 13:09:18 BRIM GREASER OPERATOR CPT-85443 Wet Mount - LAB USE ONLY 11:11:39 BRIM GREASER OPERATOR CPT-06075 Lipid - LAB USE ONLY 15:05:24 BRIM GREASER OPERATOR CPT-92666 PT/INR - LAB USE ONLY 12:14:07 CDT CPT-07541 HGBA1C - LAB USE ONLY 12:14:07 CDT CPT-06238 CMP - LAB USE ONLY 12:14:07 CDT CPT-26833 CBC - LAB USE ONLY 12:14:07 CDT CPT-89692 Venipuncture Draw Fee 12:14:06 CDT CPT-J0702 Celestone 6 mg (Betamethasone) 15:04:45 BRIM GREASER OPERATOR CPT-93181 Abx/Therapy Injection 15:04:45 BRIM GREASER OPERATOR CPT-J0702 Celestone 12 mg (Betamethasone) 11:45:31 BRIM GREASER OPERATOR CPT-40459 Visit 11:39:52 BRIM GREASER OPERATOR CPT-80190P [facility] [employer] pro wo stress test-[place] Only 11:21: 42 BRIM GREASER OPERATOR CPT-19288 Visit 16:00:50 BRIM GREASER OPERATOR CPT-67464K [facility] [employer] pro wo stress test-[place] Only 13:12: 18 BRIM GREASER OPERATOR CPT-14929 Sono biophysical pro wo stress test 11:17:21 BRIM GREASER OPERATOR 05/21 CPT-95020 Tdap 7yrs or > 15:22:51 BRIM GREASER OPERATOR CPT-63865 Immunization Single Admin 15:22:51 BRIM GREASER OPERATOR CPT-77386 Tdap 7yrs or > 15:09:13 BRIM GREASER OPERATOR CPT-89333 Visit 14:54:16 BRIM GREASER OPERATOR CPT-33288 Fluzone Quadrivalent Intramuscular Suspension 0.5 ML 16: 58:58 CDT CPT-28384 Administration single or combination vaccine inc oral 16 :58:58 CDT CPT-92614 Fluzone Thim Free 36mo and older 14:47:39 CDT CPT-28307 Visit 14:47:39 CDT CPT-34049 Sono OB limited 10:30:07 CDT CPT-65251 Visit 10:04:44 CDT CPT-36638 Sono OB comp > 14 weeks 12:50:41 CDT CPT-29621 Visit 12:06:25 CDT CPT-89947 Visit 12:43:15 CDT CPT-05293 Visit 10:06:02 CDT CPT-73739 Spec Collection and Handling Fee 10:00:31 CDT CPT-67692 Visit 10:00:30 CDT CPT-27706 Drug Screen Grisel 14:36:13 CDT
--- OUTSIDE RECORDS SUMMARY | 2018-08-28 06:26 | XMS REPORT | Clinical Summary ---
Author Author Admin, E Organization [facility] Address Unknown Phone Unavailable Allergies, Adverse Reactions, [...] Active Rian Ortega MD Tobacco use disorder Pump Service Supervisor well woman exam V72.31 Active Sasha [...] Overweight 278.02 Active Rian Ortega MD Overweight Supervision high risk , third trimester ICD-V23.9 [...] defined subpopulations ICD-V70.5 Inactive Karen Jaramillo MD 18 weeks gestation [...] Bronchitis ICD-490 Inactive Rian Ortega MD 2016 Weight loss ICD-783.21 Inactive Karen Jaramillo MD Medication List Medication Instructions Start Date Stop Date Generic Name NDC Status Provider Patient Instruction CYCLOBENZAPRINE HCL 10 MG TABS 1 three times a day as needed for muscle spasm CYCLOBENZAPRINE HCL 26058850503 Active Rian Ortega MD Active SYMBICORT 160-4.5 MCG/ACT AERO 2 puff BID for 10 days BUDESONIDE-FORMOTEROL FUMARATE 17327930369 No Longer Active Rian Ortega MD Active GUAIFENESIN 600 MG [id number] 1 twice a day as needed for congestion GUAIFENESIN 74990816130 Active Jillina Estephania SILO ERECTOR Active AZITHROMYCIN 250 MG TABS 2 po qd x 1 day, then 1 po qd x 4 days AZITHROMYCIN 64480133602 No Longer Active Carline Best APRN Active CIPRO 500 MG TAB 1 tablet by mouth twice daily CIPROFLOXACIN HCL 94521452621 No Longer Active Tariq Marrero MD Active AZO TABS TABS 2 tabs qd PHENAZOPYRIDINE HCL TABS 94189740399 No Longer Active Tariq Marrero MD Active CIPROFLOXACIN HCL 250 MG ORAL TABS 1 twice a day for bladder infection 07/24 CIPROFLOXACIN HCL 65561844498 No Longer Active Tariq Marrero MD Active SM VITAMIN B12 TR 1000 MCG ORAL CR-TABS 1 tab po daily CYANOCOBALAMIN 08222575410 No Longer Active Nereyda Michael SILO ERECTOR Active CARAFATE 1 GM TAB 1 tab po as needed up to 4 times per day SUCRALFATE 72880450526 No Longer Active Nereyda Rodriguez APRN Active PNV PLUS MULTIVITAMIN 27-1 MG ORAL TABS 1 daily VIT-FE FUMARATE-FA 97110791480 No Longer Active Sasha Espitia APRN Active CHANTIX STARTING MONTH DANILO 0.5 MG X 11 & 1 MG X 42 TABS take as directed 2015 VARENICLINE TARTRATE 16702636605 No Longer Active Sasha Espitia APRN Active CHANTIX 1 MG TABS 1 twice a day to help quit smoking VARENICLINE TARTRATE 08869476412 No Longer Active Sasha Espitia APRN Active OMEPRAZOLE 20 MG CPDR 1 tablet by mouth daily OMEPRAZOLE 85329350308 Active Sasha Espitia APRN Active FLINSTONES GUMMIES OMEGA-3 DHA ORAL CHEW 2 gummies per day PEDIATRIC MULTIPLE VIT-C-FA 49593776385 Active Sasha Espitia APRN Active CLINDAMYCIN HCL 150 MG CAPS 1 four times a day for 1 week CLINDAMYCIN HCL 63761128557 No Longer Active Karen Jaramillo MD Active TRIAMCINOLONE ACETONIDE 0.1 % CREA Apply to affected areas TID for up to 1 week TRIAMCINOLONE ACETONIDE 83997529859 No Longer Active Rian Ortega MD Active ZITHROMAX 1 GM ORAL PACK Take 1 time and recheck lab in 2-3 weeks AZITHROMYCIN 53850832519 No Longer Active Rian Ortega MD Active FLAGYL 500 MG TAB four tabs PO x 1 METRONIDAZOLE 89417311531 No Longer Active Aris Charlton MD Active FLAGYL 500 MG TAB four tabs PO x 1 FLAGYL 500 MG TAB 148221 METRONIDAZOLE Inactive ZITHROMAX 1 GM ORAL PACK Take 1 time and recheck lab in 2-3 weeks ZITHROMAX 1 GM ORAL PACK 280711 AZITHROMYCIN Inactive TRIAMCINOLONE ACETONIDE 0.1 % CREA Apply to affected areas TID for up to 1 week TRIAMCINOLONE ACETONIDE 0.1 % CREA 6801209 TRIAMCINOLONE ACETONIDE Inactive CLINDAMYCIN HCL 150 MG CAPS 1 four times a day for 1 week CLINDAMYCIN HCL 150 MG CAPS 090772 CLINDAMYCIN HCL Inactive CHANTIX 1 MG TABS [...] needed up to 4 times per day 47006/27 CARAFATE 1 GM TAB 385954 SUCRALFATE Inactive SM VITAMIN B12 TR 1000 MCG ORAL CR-TABS 1 tab po daily 470 SM VITAMIN B12 TR 1000 MCG ORAL CR-TABS CYANOCOBALAMIN Inactive CIPROFLOXACIN HCL 250 MG ORAL TABS 1 twice a day for bladder infection 07/24 CIPROFLOXACIN HCL 250 MG ORAL TABS 692828 CIPROFLOXACIN HCL Inactive AZO TABS TABS 2 tabs qd AZO TABS TABS PHENAZOPYRIDINE HCL TABS Inactive SYMBICORT 160-4.5 MCG/ACT AERO 2 puff BID for 10 days SYMBICORT 160-4.5 MCG/ACT AERO BUDESONIDE-FORMOTEROL FUMARATE Inactive CIPRO 500 MG TAB 1 tablet by mouth twice daily CIPRO 500 MG TAB 386947 CIPROFLOXACIN HCL Inactive AZITHROMYCIN 250 MG TABS 2 po qd x 1 day, then 1 po qd x 4 days AZITHROMYCIN 250 MG TABS 190534 AZITHROMYCIN Inactive Immunizations Vaccine Administration Date Value [...] HGBA1C - Chemistry sodium, serum 142 mmol/L 361-178 3628 carbon dioxide, venous blood 32.8 mmol/L 21.0-32.0 [...] 30-100 Encounters Code Encounter Date Provider Facility CPT-26732 Level 3 Est. Patient 11:54:40 CDT Rian Ortega MD [facility] CPT-34430 Level 3 Est. Patient 11:17:51 CDT Carline Best [facility] CPT-97891 Level 3 Est. Patient 15:43:38 CDT Tariq Marrero MD [facility] CPT-96538 Level 3 Est. Patient 11:16:27 FIELD HANDYMAN Nereyda Rodriguez [facility] CPT-04993 Level 4 Est. Patient 08:56:42 FIELD HANDYMAN Sasha Espitia [facility] CPT-24586 Level 3 Est. Patient 16:40:58 CDT Rian Ortega MD [facility] CPT-76135 Level 3 Est. Patient 13:55:16 FIELD HANDYMAN Rian Ortega MD [facility] CPT-79043 Level 3 Est. Patient 10:42:52 CDT Corrina Bailon [facility] CPT-52164 Level 3 Est. Patient 11:18:30 CDT Aris Charlton MD [facility] Procedures Code Procedure Name Date Entry Date Standard Description CPT-05822 UA w micro - LAB USE ONLY 13:09:18 FIELD HANDYMAN CPT-10015 Urine Culture - LAB USE ONLY 13:09:18 FIELD HANDYMAN CPT-28472 Wet Mount - LAB USE ONLY 11:11:39 FIELD HANDYMAN CPT-92916 Lipid - LAB USE ONLY 15:05:24 FIELD HANDYMAN CPT-49770 PT/INR - LAB USE ONLY 12:14:07 CDT CPT-42927 HGBA1C - LAB USE ONLY 12:14:07 CDT CPT-44486 CMP - LAB USE ONLY 12:14:07 CDT CPT-48907 CBC - LAB USE ONLY 12:14:07 CDT CPT-39705 Venipuncture Draw Fee 12:14:06 CDT CPT-J0702 Celestone 6 mg (Betamethasone) 15:04:45 FIELD HANDYMAN CPT-01956 Abx/Therapy Injection 15:04:45 FIELD HANDYMAN CPT-J0702 Celestone 12 mg (Betamethasone) 11:45:31 FIELD HANDYMAN CPT-55105 Visit 11:39:52 FIELD HANDYMAN CPT-28568M Sono biophysical pro wo stress test-[place] Only 11:21: 42 FIELD HANDYMAN CPT-50552 Visit 16:00:50 FIELD HANDYMAN CPT-57468T Sono biophysical pro wo stress test-[place] Only 13:12: 18 FIELD HANDYMAN CPT-03773 Sono biophysical pro wo stress test 11:17:21 FIELD HANDYMAN 05/21 CPT-22632 Tdap 7yrs or > 15:22:51 FIELD HANDYMAN CPT-95119 Immunization Single Admin 15:22:51 FIELD HANDYMAN CPT-49218 Tdap 7yrs or > 15:09:13 FIELD HANDYMAN CPT-01711 Visit 14:54:16 FIELD HANDYMAN CPT-34070 Fluzone Quadrivalent Intramuscular Suspension 0.5 ML 16: 58:58 CDT CPT-97912 Administration single or combination vaccine inc oral 16 :58:58 CDT CPT-28501 Fluzone Thim Free 36mo and older 14:47:39 CDT CPT-29628 Visit 14:47:39 CDT CPT-17527 Sono OB limited 10:30:07 CDT CPT-19639 Visit 10:04:44 CDT CPT-13097 Sono OB comp > 14 weeks 12:50:41 CDT CPT-37461 Visit 12:06:25 CDT CPT-92082 Visit 12:43:15 CDT CPT-72779 Visit 10:06:02 CDT CPT-84570 Spec Collection and Handling Fee 10:00:31 CDT CPT-25177 Visit 10:00:30 CDT CPT-99778 Drug Screen [place]isel 14:36:13 CDT
--- OUTSIDE RECORDS SUMMARY | 2018-08-28 06:26 | XMS REPORT | Clinical Summary ---
Author Author Admin, [facility] Organization [facility] [...] Active Rian Ortega MD Tobacco use disorder Emergency Department Clinician well woman exam V72.31 Active Sasha Espitia APRN Routine gynecological examination Bariatric operative procedure V45.86 Active Mariely Farolanda HARVEY Bariatric surgery status Physical examination V70.0 [...] day for bladder infection 07/24 CIPROFLOXACIN HCL 44576167323 Active Nereyda Rodriguez APRN Active AZO TABS TABS 2 tabs qd PHENAZOPYRIDINE HCL TABS 37345730306 Active Nereyda Rodriguez APRN Active SM VITAMIN B12 TR 1000 MCG ORAL CR-TABS 1 tab po daily CYANOCOBALAMIN 21606836035 No Longer Active Nereyda Rodriguez APRN Active CARAFATE 1 GM TAB 1 tab po as needed up to 4 times per day SUCRALFATE 44016440515 No Longer Active Nereyda Rodriguez APRN Active PNV PLUS MULTIVITAMIN 27-1 MG ORAL TABS 1 daily VIT-FE FUMARATE-FA 53820751555 No Longer Active Sasha Espitia APRN Active CHANTIX STARTING MONTH DANILO 0.5 MG X 11 & 1 MG X 42 TABS take as directed 2015 VARENICLINE TARTRATE 55920053822 No Longer Active Sasha Espitia APRN Active CHANTIX 1 MG TABS 1 twice a day to help quit smoking VARENICLINE TARTRATE 57964424935 No Longer Active Sasha Espitia APRN Active OMEPRAZOLE 20 MG CPDR 1 tablet by mouth daily OMEPRAZOLE 79609170082 Active Sasha Espitia APRN Active FLINSTONES GUMMIES OMEGA-3 DHA ORAL CHEW 2 gummies per day PEDIATRIC MULTIPLE VIT-C-FA 74427233094 Active Sasha Espitia APRN Active CLINDAMYCIN HCL 150 MG CAPS 1 four times a day for 1 week CLINDAMYCIN HCL 41792211803 No Longer Active Karen Jaramillo MD Active TRIAMCINOLONE ACETONIDE 0.1 % CREA Apply to affected areas TID for up to 1 week TRIAMCINOLONE ACETONIDE 25424055819 No Longer Active Rian Ortega MD Active ZITHROMAX 1 GM ORAL PACK Take 1 time and recheck lab in 2-3 weeks AZITHROMYCIN 63572904213 No Longer Active Rian Ortega MD Active FLAGYL 500 MG TAB four tabs PO x 1 METRONIDAZOLE 26387301087 No Longer Active Aris Charlton MD Active FLAGYL 500 MG TAB four tabs PO x 1 FLAGYL 500 MG TAB 527672 METRONIDAZOLE Inactive ZITHROMAX 1 GM ORAL PACK Take 1 time and recheck lab in 2-3 weeks ZITHROMAX 1 GM ORAL PACK 557855 AZITHROMYCIN Inactive TRIAMCINOLONE ACETONIDE 0.1 % CREA Apply to affected areas TID for up to 1 week TRIAMCINOLONE ACETONIDE 0.1 % CREA 3895974 TRIAMCINOLONE ACETONIDE Inactive CLINDAMYCIN HCL 150 MG CAPS 1 four times a day for 1 week CLINDAMYCIN HCL 150 MG CAPS 720438 CLINDAMYCIN HCL Inactive CHANTIX 1 MG TABS [...] per day 06/27 CARAFATE 1 GM TAB 575003 SUCRALFATE Inactive SM VITAMIN B12 TR 1000 MCG ORAL CR-TABS 1 tab po daily 470 SM VITAMIN B12 TR 1000 MCG ORAL CR-TABS CYANOCOBALAMIN Inactive Immunizations Vaccine Administration Date Value Standard Description hepatitis B vaccine series yes hepatitis B vaccine, unspecified formulation Vital Signs Date Name Value Unit Range Description temperature E&M 98.3 [degF] Body temperature weight [...] pressure, diastolic - 8462-4 82 mm[Hg] BP aclvo blood pressure, systolic - 8480-6 137 mm[Hg] BP sys pulse rate E&M - 8867-4 72 /min Heart rate temperature E&M 98.8 [degF] Body temperature weight E&M - 3141-9 267.5 [lb_av] Weight Measured Diagnostic Results Date Name Value Unit Range Description Lab Report: CBC, Comp. Metabolic Panel, HGBA1C - Chemistry sodium, serum 142 mmol/L 220-639 8631 carbon dioxide, venous blood 32.8 mmol/L 21.0-32.0 [...] Panel - Chemistry cholesterol, serum 165 mg/dL [phone] triglyceride, serum, fasting 124 mg/dL 30-200 HDL [...] 30-100 Encounters Code Encounter Date Provider Facility CPT-33874 Level 3 Est. Patient 11:16:27 WEB CONTENT DEVELOPER Nereyda Rodriguez [facility] CPT-62054 Level 4 Est. Patient 08:56:42 WEB CONTENT DEVELOPER Sasha Espitia [facility] CPT-54494 Level 3 Est. Patient 16:40:58 CDT Rian Ortega MD [facility] CPT-74195 Level 3 Est. Patient 13:55:16 WEB CONTENT DEVELOPER Rian Ortega MD [facility] CPT-04465 Level 3 Est. Patient 10:42:52 CDT Corrina Bailon [facility] CPT-87945 Level 3 Est. Patient 11:18:30 CDT Aris Charlton MD [facility] Procedures Code Procedure Name Date Entry Date Standard Description CPT-20990 UA w micro - LAB USE ONLY 13:09:18 WEB CONTENT DEVELOPER CPT-49115 Urine Culture - LAB USE ONLY 13:09:18 WEB CONTENT DEVELOPER CPT-84405 Wet Mount - LAB USE ONLY 11:11:39 WEB CONTENT DEVELOPER CPT-24096 Lipid - LAB USE ONLY 15:05:24 WEB CONTENT DEVELOPER CPT-74692 PT/INR - LAB USE ONLY 12:14:07 CDT CPT-50238 HGBA1C - LAB USE ONLY 12:14:07 CDT CPT-64920 CMP - LAB USE ONLY 12:14:07 CDT CPT-39501 CBC - LAB USE ONLY 12:14:07 CDT CPT-90004 Venipuncture Draw Fee 12:14:06 CDT CPT-J0702 Celestone 6 mg (Betamethasone) 15:04:45 WEB CONTENT DEVELOPER CPT-74897 Abx/Therapy Injection 15:04:45 WEB CONTENT DEVELOPER CPT-J0702 Celestone 12 mg (Betamethasone) 11:45:31 WEB CONTENT DEVELOPER CPT-21281 Visit 11:39:52 WEB CONTENT DEVELOPER CPT-62567C Sono bi[employer] pro wo stress test-[place] Only 11:21: 42 WEB CONTENT DEVELOPER CPT-84861 Visit 16:00:50 WEB CONTENT DEVELOPER CPT-72615P Sono biophysical pro wo stress test-[facility] 13:12: 18 WEB CONTENT DEVELOPER CPT-24268 Sono biophysical pro wo stress test 11:17:21 WEB CONTENT DEVELOPER 05/21 CPT-79866 Tdap 7yrs or > 15:22:51 WEB CONTENT DEVELOPER CPT-29299 Immunization Single Admin 15:22:51 WEB CONTENT DEVELOPER CPT-87773 Tdap 7yrs or > 15:09:13 WEB CONTENT DEVELOPER CPT-91192 Visit 14:54:16 WEB CONTENT DEVELOPER CPT-30903 Fluzone Quadrivalent Intramuscular Suspension 0.5 ML 16: 58:58 CDT CPT-44319 Administration single or combination vaccine inc oral 16 :58:58 CDT CPT-69336 Fluzone Thim Free 36mo and older 14:47:39 CDT CPT-45432 Visit 14:47:39 CDT CPT-45153 Sono OB limited 10:30:07 CDT CPT-63366 Visit 10:04:44 CDT CPT-38216 Sono OB comp > 14 weeks 12:50:41 CDT CPT-21378 Visit 12:06:25 CDT CPT-63117 Visit 12:43:15 CDT CPT-70717 Visit 10:06:02 CDT CPT-35340 Spec Collection and Handling Fee 10:00:31 CDT CPT-95318 Visit 10:00:30 CDT CPT-75103 Drug Screen [place]isel 14:36:13 CDT
--- OUTSIDE RECORDS SUMMARY | 2018-08-28 06:27 | XMS REPORT | Clinical Summary ---
Author Author Admin, E Organization [employer] Address Unknown Phone Unavailable Allergies, Adverse Reactions, [...] Active Rian Ortega MD Tobacco use disorder Senior Quality Assurance Specialist well woman exam V72.31 Active Sasha Tan [...] 30 weeks gestation of ICD-V28.9 Inactive Deepika MCQUENET 31 weeks gestation of ICD-V28.9 Inactive Deepika RITCHIE Morbid obesity ICD-278.01 Inactive Rian Ortega MD Dysuria ICD-788.1 Inactive Rian Ortega MD 03/29 Bronchitis ICD-490 Inactive Rian Ortega MD 2016 Medication List Medication Instructions Start Date Stop Date Generic Name NDC Status Provider Patient Instruction ZITHROMAX Z-DANILO 250 MG ORAL TABLET 2 today, then 1 daily for 4 days AZITHROMYCIN 18019560711 Active Mahsabelkys Riveradanyell Active AZITHROMYCIN 250 MG ORAL TABLET 2 po qd x 1 day, then 1 po qd x 4 days 07/27 AZITHROMYCIN 19102048041 No Longer Active Carline Best APRN Active GUAIFENESIN ER 600 MG ORAL TABLET EXTENDED RELEASE 12 HOUR 1 twice a day as needed for congestion GUAIFENESIN 99490706711 No Longer Active Sasha Tan APRN Active CYCLOBENZAPRINE HCL 10 MG ORAL TABLET 1 three times a day as needed for muscle spasm CYCLOBENZAPRINE HCL 35267167955 No Longer Active Sasha Tan APRN Active SYMBICORT 160-4.5 MCG/ACT INHALATION AEROSOL 2 puff BID for 10 days BUDESONIDE-FORMOTEROL FUMARATE 73471563055 No Longer Active Rian Ortega MD Active AZITHROMYCIN 250 MG ORAL TABLET 2 po qd x 1 day, then 1 po qd x 4 days 02/15 AZITHROMYCIN 29945535067 No Longer Active Carline Best APRN Active CIPRO 500 MG ORAL TABLET 1 tablet by mouth twice daily CIPROFLOXACIN HCL 16772496913 No Longer Active Tariq Marrero MD Active AZO TABS TABLET 2 tabs qd PHENAZOPYRIDINE HCL TABS 45723032723 No Longer Active Tariq Marrero MD Active CIPROFLOXACIN HCL 250 MG ORAL TABLET 1 twice a day for bladder infection 2016 CIPROFLOXACIN HCL 56270242662 No Longer Active Tariq Marrero MD Active SM VITAMIN B12 TR 1000 MCG ORAL TABLET EXTENDED RELEASE 1 tab po daily 04/24 CYANOCOBALAMIN 26657439759 No Longer Active Nereyda Rodriguez APRN Active CARAFATE 1 GM ORAL TABLET 1 tab po as needed up to 4 times per day SUCRALFATE 78672813842 No Longer Active Nereyda Rodriguez APRN Active PNV PLUS MULTIVITAMIN 27-1 MG ORAL TABLET 1 daily 04/24 VIT-FE FUMARATE-FA 39715629058 No Longer Active Sasha Tan APRN Active CHANTIX STARTING MONTH DANILO 0.5 MG X 11 & 1 MG X 42 ORAL TABLET take as directed VARENICLINE TARTRATE 91162677107 No Longer Active Sasha Tan APRN Active CHANTIX 1 MG ORAL TABLET 1 twice a day to help quit smoking 04/24 VARENICLINE TARTRATE 37999528256 No Longer Active Sasha Tan APRN Active OMEPRAZOLE 20 MG ORAL CAPSULE DELAYED RELEASE 1 tablet by mouth daily OMEPRAZOLE 68284886111 Active Sasha Tan APRN Active FLINSTONES GUMMIES OMEGA-3 DHA ORAL TABLET CHEWABLE 2 gummies per day PEDIATRIC MULTIPLE VIT-C-FA 52013289042 Active Sasha Tan APRN Active CLINDAMYCIN HCL 150 MG ORAL CAPSULE 1 four times a day for 1 week CLINDAMYCIN HCL 44412940471 No Longer Active Karen Jaramillo MD Active TRIAMCINOLONE ACETONIDE 0.1 % EXTERNAL CREAM Apply to affected areas TID for up to 1 week TRIAMCINOLONE ACETONIDE 27497589230 No Longer Active Rian Ortega MD Active ZITHROMAX 1 GM ORAL PACKET Take 1 time and recheck lab in 2-3 weeks AZITHROMYCIN 35728471353 No Longer Active Rian Ortega MD Active FLAGYL 500 MG ORAL TABLET four tabs PO x 1 METRONIDAZOLE 25679888423 No Longer Active Aris Charlton MD Active FLAGYL 500 MG ORAL TABLET four tabs PO x 1 FLAGYL 500 MG ORAL TABLET 569374 METRONIDAZOLE Inactive ZITHROMAX 1 GM ORAL PACKET Take 1 time and recheck lab in 2-3 weeks ZITHROMAX 1 GM ORAL PACKET 857396 AZITHROMYCIN Inactive TRIAMCINOLONE ACETONIDE 0.1 % EXTERNAL CREAM Apply to affected areas TID for up to 1 week TRIAMCINOLONE ACETONIDE 0.1 % EXTERNAL CREAM 2994174 TRIAMCINOLONE ACETONIDE Inactive CLINDAMYCIN HCL 150 MG ORAL CAPSULE 1 four times a day for 1 week CLINDAMYCIN HCL 150 MG ORAL CAPSULE 126717 CLINDAMYCIN HCL Inactive CHANTIX 1 MG ORAL [...] per day CARAFATE 1 GM ORAL TABLET 632960 SUCRALFATE Inactive SM VITAMIN B12 TR 1000 MCG ORAL TABLET EXTENDED RELEASE 1 tab po daily 04/24 SM VITAMIN B12 TR 1000 MCG ORAL TABLET EXTENDED RELEASE CYANOCOBALAMIN Inactive CIPROFLOXACIN HCL 250 MG ORAL TABLET 1 twice a day for bladder infection 2016 CIPROFLOXACIN HCL 250 MG ORAL TABLET 694465 CIPROFLOXACIN HCL Inactive AZO TABS TABLET 2 tabs qd AZO TABS TABLET PHENAZOPYRIDINE HCL TABS Inactive SYMBICORT 160-4.5 MCG/ACT INHALATION AEROSOL 2 puff BID for 10 days SYMBICORT 160-4.5 MCG/ACT INHALATION AEROSOL BUDESONIDE- FORMOTEROL FUMARATE Inactive CYCLOBENZAPRINE HCL 10 MG ORAL TABLET 1 three times a day as needed for muscle spasm CYCLOBENZAPRINE HCL 10 MG ORAL TABLET 279998 CYCLOBENZAPRINE HCL Inactive GUAIFENESIN ER 600 MG ORAL TABLET EXTENDED RELEASE 12 HOUR 1 twice a day as needed for congestion GUAIFENESIN ER 600 MG ORAL TABLET EXTENDED RELEASE 12 HOUR GUAIFENESIN Inactive CIPRO 500 MG ORAL TABLET 1 tablet by mouth twice daily CIPRO 500 MG ORAL TABLET 225326 CIPROFLOXACIN HCL Inactive AZITHROMYCIN 250 MG ORAL TABLET 2 po qd x 1 day, then 1 po qd x 4 days 02/15 AZITHROMYCIN 250 MG ORAL TABLET 477625 AZITHROMYCIN Inactive AZITHROMYCIN 250 MG ORAL TABLET 2 po qd x 1 day, then 1 po qd x 4 days 07/27 AZITHROMYCIN 250 MG ORAL TABLET 356321 AZITHROMYCIN Inactive Immunizations Vaccine Administration Date Value [...] - Hematology leukocyte count, blood sent to [facility] 10^3/mm^3 10*3/mm3 4.6-10.2 Lab Report: CBC, Lipid Panel, Thyroid Stimulating Hormone (L), Free Thyr ... - Chemistry cholesterol, serum 142 mg/dL 923-914 0607/10/24 triglyceride, serum, fasting 77 mg/dL 30-200 HDL [...] Panel - Chemistry sodium, serum 137 mmol/L 137-655 6969/10/24 carbon dioxide, venous blood 24.4 mmol/L 21.0-32.0 [...] Negative;Positive Encounters Code Encounter Date Provider Facility CPT-64547 Level 3 Est. Patient 14:41:20 CDT Tariq Marrero MD [facility] CPT-32474 Level 3 Est. Patient 11:06:09 RAILROAD WATCHMAN Carline Best [facility] CPT-85922 Level 3 Est. Patient 15:59:13 RAILROAD WATCHMAN Carline Best [facility] CPT-42477 Employment/ICC Exam 15:03:09 RAILROAD WATCHMAN Sasha Tan [facility] CPT-58363 Level 3 Est. Patient 11:54:40 CDT Rian Ortega MD [facility] CPT-03801 Level 3 Est. Patient 11:17:51 CDT Carline Best [facility] CPT-12034 Level 3 Est. Patient 15:43:38 CDT Tariq Marrero MD [facility] CPT-20607 Level 3 Est. Patient 11:16:27 RAILROAD WATCHMAN Nereyda Rodriguez [facility] CPT-57858 Level 4 Est. Patient 08:56:42 RAILROAD WATCHMAN Sasha Tan [facility] CPT-94338 Level 3 Est. Patient 16:40:58 CDT Rian Ortega MD [facility] CPT-31669 Level 3 Est. Patient 13:55:16 RAILROAD WATCHMAN Rian Ortega MD [facility] CPT-78823 Level 3 Est. Patient 10:42:52 CDT Corrina Bailon BETO [facility] CPT-02258 Level 3 Est. Patient 11:18:30 CDT Aris Charlton MD [facility] Procedures Code Procedure Name Date Entry Date Standard Description CPT-26842 UA w micro - LAB USE ONLY 13:09:18 RAILROAD WATCHMAN CPT-14984 Urine Culture - LAB USE ONLY 13:09:18 RAILROAD WATCHMAN CPT-66569 Wet Mount - LAB USE ONLY 11:11:39 RAILROAD WATCHMAN CPT-62575 Lipid - LAB USE ONLY 15:05:24 RAILROAD WATCHMAN CPT-80313 PT/INR - LAB USE ONLY 12:14:07 CDT CPT-53892 HGBA1C - LAB USE ONLY 12:14:07 CDT CPT-07823 CMP - LAB USE ONLY 12:14:07 CDT CPT-75252 CBC - LAB USE ONLY 12:14:07 CDT CPT-95465 Venipuncture Draw Fee 12:14:06 CDT CPT-J0702 Celestone 6 mg (Betamethasone) 15:04:45 RAILROAD WATCHMAN CPT-13260 Abx/Therapy Injection 15:04:45 RAILROAD WATCHMAN CPT-J0702 Celestone 12 mg (Betamethasone) 11:45:31 RAILROAD WATCHMAN CPT-45867 Visit 11:39:52 RAILROAD WATCHMAN CPT-64328H [employer] biophysical pro wo stress test-[place] Only 11:21: 42 RAILROAD WATCHMAN CPT-72639 Visit 16:00:50 RAILROAD WATCHMAN CPT-32063T [employer] biophysical pro wo stress test[place] Only 13:12: 18 RAILROAD WATCHMAN CPT-06880 Sono biophysical pro wo stress test 11:17:21 RAILROAD WATCHMAN 05/21 CPT-95340 Tdap 7yrs or > 15:22:51 RAILROAD WATCHMAN CPT-62472 Immunization Single Admin 15:22:51 RAILROAD WATCHMAN CPT-76749 Tdap 7yrs or > 15:09:13 RAILROAD WATCHMAN CPT-72414 Visit 14:54:16 RAILROAD WATCHMAN CPT-48421 Fluzone Quadrivalent Intramuscular Suspension 0.5 ML 16: 58:58 CDT CPT-49952 Administration single or combination vaccine inc oral 16 :58:58 CDT CPT-62039 Fluzone Thim Free 36mo and older 14:47:39 CDT CPT-85443 Visit 14:47:39 CDT CPT-46815 Sono OB limited 10:30:07 CDT CPT-10313 Visit 10:04:44 CDT CPT-83468 Sono OB comp > 14 weeks 12:50:41 CDT CPT-21248 Visit 12:06:25 CDT CPT-67840 Visit 12:43:15 CDT CPT-84566 Visit 10:06:02 CDT CPT-79781 Spec Collection and Handling Fee 10:00:31 CDT CPT-17363 Visit 10:00:30 CDT CPT-56251 Drug Screen Grisel 14:36:13 CDT
--- OUTSIDE RECORDS SUMMARY | 2018-08-28 06:27 | XMS REPORT | Clinical Summary ---
Author Author Admin, E Organization [facility] Address Unknown Phone Unavailable Allergies, Adverse Reactions, [...] Active Rian Ortega MD Tobacco use disorder Criminal Judge well woman exam V72.31 Active Sasha Espitia [...] joint involving shoulder region Overweight 278.02 Active Rina Ortega MD Overweight Thoracic back pain 724.5 [...] 30 weeks gestation of ICD-V28.9 Inactive Deepika LRT 31 weeks gestation of ICD-V28.9 Inactive Deepika Alvarez LRT Morbid obesity ICD-278.01 Inactive Rian Ortega MD Dysuria ICD-788.1 Inactive Rian Ortega MD 03/29 Bronchitis ICD-490 Inactive Rian Ortega MD 2016 Medication List Medication Instructions Start Date Stop Date Generic Name NDC Status Provider Patient Instruction GUAIFENESIN 600 MG [id number] 1 twice a day as needed for congestion GUAIFENESIN 41887509277 No Longer Active Sasha Espitia APRN Active CYCLOBENZAPRINE HCL 10 MG TABS 1 three times a day as needed for muscle spasm CYCLOBENZAPRINE HCL 11192366470 No Longer Active Sasha Espitia APRN Active SYMBICORT 160-4.5 MCG/ACT AERO 2 puff BID for 10 days BUDESONIDE-FORMOTEROL FUMARATE 68116835082 No Longer Active Rian Ortega MD Active AZITHROMYCIN 250 MG TABS 2 po qd x 1 day, then 1 po qd x 4 days AZITHROMYCIN 42798204837 No Longer Active Carline Best APRN Active CIPRO 500 MG TAB 1 tablet by mouth twice daily CIPROFLOXACIN HCL 20756036054 No Longer Active Tariq Marrero MD Active AZO TABS TABS 2 tabs qd PHENAZOPYRIDINE HCL TABS 48265068147 No Longer Active Tariq Marrero MD Active CIPROFLOXACIN HCL 250 MG ORAL TABS 1 twice a day for bladder infection 07/24 CIPROFLOXACIN HCL 51523320582 No Longer Active Tariq Marrero MD Active SM VITAMIN B12 TR 1000 MCG ORAL CR-TABS 1 tab po daily CYANOCOBALAMIN 09861448593 No Longer Active Nereyda Rodriguez APRN Active CARAFATE 1 GM TAB 1 tab po as needed up to 4 times per day SUCRALFATE 41474817602 No Longer Active Nereyda Rodriguez APRN Active PNV PLUS MULTIVITAMIN 27-1 MG ORAL TABS 1 daily VIT-FE FUMARATE-FA 61752674593 No Longer Active Sasha Espitia APRN Active CHANTIX STARTING MONTH DANILO 0.5 MG X 11 & 1 MG X 42 TABS take as directed 2015 VARENICLINE TARTRATE 64358930999 No Longer Active Sasha Espitia APRN Active CHANTIX 1 MG TABS 1 twice a day to help quit smoking VARENICLINE TARTRATE 04558882655 No Longer Active Sasha Espitia APRN Active OMEPRAZOLE 20 MG CPDR 1 tablet by mouth daily OMEPRAZOLE 08651239000 Active Sasha Espitia APRN Active FLINSTONES GUMMIES OMEGA-3 DHA ORAL CHEW 2 gummies per day PEDIATRIC MULTIPLE VIT-C-FA 50201881586 Active Sasha Espitia APRN Active CLINDAMYCIN HCL 150 MG CAPS 1 four times a day for 1 week CLINDAMYCIN HCL 92240838055 No Longer Active Karen Jaramillo MD Active TRIAMCINOLONE ACETONIDE 0.1 % CREA Apply to affected areas TID for up to 1 week TRIAMCINOLONE ACETONIDE 25145839350 No Longer Active Rian Ortega MD Active ZITHROMAX 1 GM ORAL PACK Take 1 time and recheck lab in 2-3 weeks AZITHROMYCIN 06034195139 No Longer Active Rian Ortega MD Active FLAGYL 500 MG TAB four tabs PO x 1 METRONIDAZOLE 78691738341 No Longer Active Aris Charlton MD Active FLAGYL 500 MG TAB four tabs PO x 1 FLAGYL 500 MG TAB 588186 METRONIDAZOLE Inactive ZITHROMAX 1 GM ORAL PACK Take 1 time and recheck lab in 2-3 weeks ZITHROMAX 1 GM ORAL PACK 985726 AZITHROMYCIN Inactive TRIAMCINOLONE ACETONIDE 0.1 % CREA Apply to affected areas TID for up to 1 week TRIAMCINOLONE ACETONIDE 0.1 % CREA 1634565 TRIAMCINOLONE ACETONIDE Inactive CLINDAMYCIN HCL 150 MG CAPS 1 four times a day for 1 week CLINDAMYCIN HCL 150 MG CAPS 677832 CLINDAMYCIN HCL Inactive CHANTIX 1 MG TABS [...] per day 06/27 CARAFATE 1 GM TAB 425392 SUCRALFATE Inactive SM VITAMIN B12 TR 1000 MCG ORAL CR-TABS 1 tab po daily SM VITAMIN B12 TR 1000 MCG ORAL CR-TABS CYANOCOBALAMIN Inactive CIPROFLOXACIN HCL 250 MG ORAL TABS 1 twice a day for bladder infection 07/24 CIPROFLOXACIN HCL 250 MG ORAL TABS 058061 CIPROFLOXACIN HCL Inactive AZO TABS TABS 2 tabs qd AZO TABS TABS PHENAZOPYRIDINE HCL TABS Inactive SYMBICORT 160-4.5 MCG/ACT AERO 2 puff BID for 10 days SYMBICORT 160-4.5 MCG/ACT AERO BUDESONIDE-FORMOTEROL FUMARATE Inactive CYCLOBENZAPRINE HCL 10 MG TABS 1 three times a day as needed for muscle spasm CYCLOBENZAPRINE HCL 10 MG TABS 158708 CYCLOBENZAPRINE HCL Inactive GUAIFENESIN 600 MG [id number] 1 twice a day as needed for congestion GUAIFENESIN 600 MG [id number] GUAIFENESIN Inactive CIPRO 500 MG TAB 1 tablet by mouth twice daily CIPRO 500 MG TAB 038280 CIPROFLOXACIN HCL Inactive AZITHROMYCIN 250 MG TABS 2 po qd x 1 day, then 1 po qd x 4 days AZITHROMYCIN 250 MG TABS 519975 AZITHROMYCIN Inactive Immunizations Vaccine Administration Date Value [...] BA1C - Chemistry sodium, serum 142 mmol/L [phone] carbon dioxide, venous blood 32.8 mmol/L 21.0-32.0 [...] 243 10^3/MM^3 10*3/mm3 142-424 Lab Report: CBC, Lipid Panel, Thyroid Stimulating Hormone (L), Free Thyr ... - Chemistry cholesterol, serum 142 mg/dL 797-034 1906/10/24 triglyceride, serum, fasting 77 mg/dL 30-200 HDL [...] Panel - Chemistry sodium, serum 137 mmol/L 727-520 3367/10/24 carbon dioxide, venous blood 24.4 mmol/L 21.0-32.0 potassium, serum 4.7 mmol/L 3.5-5.2 chloride, serum 104 mmol/L 98-107 blood glucose 85 mg/dL 65-110 urea nitrogen, blood 11 mg/dL 7-18 creatinine, serum 0.82 mg/dL 0.60-1.30 alanine aminotransferase (SGPT), serum 29 U/L 12-78 aspartate aminotransferase (SGOT), serum 16 U/L 15-37 calcium, serum 8.4 mg/dL 8.5-10.1 bilirubin, serum, total 0.60 mg/dL 0.00-1.00 Lab Report: Lipid Panel - Chemistry cholesterol, serum 165 mg/dL 253-154 3582 triglyceride, serum, fasting 124 mg/dL 30-200 HDL [...] 30-100 Encounters Code Encounter Date Provider Facility CPT-32401 Level 3 Est. Patient 11:54:40 CDT Rian Ortega MD [facility] CPT-46204 Level 3 Est. Patient 11:17:51 CDT Carline Best [facility] CPT-90248 Level 3 Est. Patient 15:43:38 CDT Tariq Marrero MD [facility] CPT-95443 Level 3 Est. Patient 11:16:27 BURRING MACHINE OPERATOR Nereyda Rodriguez [facility] CPT-05161 Level 4 Est. Patient 08:56:42 BURRING MACHINE OPERATOR Sasha Espitia [facility] CPT-67579 Level 3 Est. Patient 16:40:58 CDT Rian Ortega MD [facility] CPT-62162 Level 3 Est. Patient 13:55:16 BURRING MACHINE OPERATOR Rian Ortega MD [facility] CPT-03235 Level 3 Est. Patient 10:42:52 CDT Corrina Bailon [facility] CPT-46320 Level 3 Est. Patient 11:18:30 CDT Aris Charlton MD [facility] Procedures Code Procedure Name Date Entry Date Standard Description CPT-46006 UA w micro - LAB USE ONLY 13:09:18 BURRING MACHINE OPERATOR CPT-00429 Urine Culture - LAB USE ONLY 13:09:18 BURRING MACHINE OPERATOR CPT-46280 Wet Mount - LAB USE ONLY 11:11:39 BURRING MACHINE OPERATOR CPT-55567 Lipid - LAB USE ONLY 15:05:24 BURRING MACHINE OPERATOR CPT-15326 PT/INR - LAB USE ONLY 12:14:07 CDT CPT-35884 HGBA1C - LAB USE ONLY 12:14:07 CDT CPT-11132 CMP - LAB USE ONLY 12:14:07 CDT CPT-98509 CBC - LAB USE ONLY 12:14:07 CDT CPT-74604 Venipuncture Draw Fee 12:14:06 CDT CPT-J0702 Celestone 6 mg (Betamethasone) 15:04:45 BURRING MACHINE OPERATOR CPT-67221 Abx/Therapy Injection 15:04:45 BURRING MACHINE OPERATOR CPT-J0702 Celestone 12 mg (Betamethasone) 11:45:31 BURRING MACHINE OPERATOR CPT-11460 Visit 11:39:52 BURRING MACHINE OPERATOR CPT-51021H Sono biophysical pro wo stress test-[place] Only 11:21: 42 BURRING MACHINE OPERATOR CPT-32964 Visit 16:00:50 BURRING MACHINE OPERATOR CPT-09738Z Sono biophysical pro wo stress test-[place] Only 13:12: 18 BURRING MACHINE OPERATOR CPT-92071 Sono biophysical pro wo stress test 11:17:21 BURRING MACHINE OPERATOR 05/21 CPT-17964 Tdap 7yrs or > 15:22:51 BURRING MACHINE OPERATOR CPT-85212 Immunization Single Admin 15:22:51 BURRING MACHINE OPERATOR CPT-94403 Tdap 7yrs or > 15:09:13 BURRING MACHINE OPERATOR CPT-43949 Visit 14:54:16 BURRING MACHINE OPERATOR CPT-70333 Fluzone Quadrivalent Intramuscular Suspension 0.5 ML 16: 58:58 CDT CPT-80194 Administration single or combination vaccine inc oral 16 :58:58 CDT CPT-08843 Fluzone Thim Free 36mo and older 14:47:39 CDT CPT-38572 Visit 14:47:39 CDT CPT-05388 Sono OB limited 10:30:07 CDT CPT-01901 Visit 10:04:44 CDT CPT-21173 Sono OB comp > 14 weeks 12:50:41 CDT CPT-29787 Visit 12:06:25 CDT CPT-22212 Visit 12:43:15 CDT CPT-21002 Visit 10:06:02 CDT CPT-64686 Spec Collection and Handling Fee 10:00:31 CDT CPT-60397 Visit 10:00:30 CDT CPT-65668 Drug Screen Grisel 14:36:13 CDT
--- OUTSIDE RECORDS SUMMARY | 2018-08-28 06:28 | XMS REPORT | Clinical Summary ---
Author Author Admin, E Organization [facility] Address Unknown Phone Unavailable Allergies, [...] apnea (adult) (pediatric) Cigarette smoker 305.1 Active Rina Ortega MD Tobacco use disorder Stock Raiser well woman exam V72.31 Active Sasha Espitia [...] as needed for muscle spasm CYCLOBENZAPRINE HCL 44046802790 Active Rian Ortega MD Active SYMBICORT 160-4.5 MCG/ACT AERO 2 puff BID for 10 days BUDESONIDE-FORMOTEROL FUMARATE 48310037052 No Longer Active Rian Ortega MD Active GUAIFENESIN 600 MG [id number] 1 twice a day as needed for congestion GUAIFENESIN 32781990700 Active Jillina Estephania PACKAGE CAR DRIVER Active AZITHROMYCIN 250 MG TABS 2 po qd x 1 day, then 1 po qd x 4 days AZITHROMYCIN 26831196903 No Longer Active Carline Best APRN Active CIPRO 500 MG TAB 1 tablet by mouth twice daily CIPROFLOXACIN HCL 48369051171 No Longer Active Tariq Marrero MD Active AZO TABS TABS 2 tabs qd PHENAZOPYRIDINE HCL TABS 09053729751 No Longer Active Tariq Marrero MD Active CIPROFLOXACIN HCL 250 MG ORAL TABS 1 twice a day for bladder infection 07/24 CIPROFLOXACIN HCL 70078963621 No Longer Active Tariq Marrero MD Active SM VITAMIN B12 TR 1000 MCG ORAL CR-TABS 1 tab po daily CYANOCOBALAMIN 47268754964 No Longer Active Nereyda Michael PACKAGE CAR DRIVER Active CARAFATE 1 GM TAB 1 tab po as needed up to 4 times per day SUCRALFATE 63656374956 No Longer Active Nereyda Rodriguez APRN Active PNV PLUS MULTIVITAMIN 27-1 MG ORAL TABS 1 daily VIT-FE FUMARATE-FA 12303132967 No Longer Active Sasha Espitia APRN Active CHANTIX STARTING MONTH DANILO 0.5 MG X 11 & 1 MG X 42 TABS take as directed 2015 VARENICLINE TARTRATE 96982528457 No Longer Active Sasha Espitia APRN Active CHANTIX 1 MG TABS 1 twice a day to help quit smoking VARENICLINE TARTRATE 69817351091 No Longer Active Sasha Espitia APRN Active OMEPRAZOLE 20 MG CPDR 1 tablet by mouth daily OMEPRAZOLE 36366629327 Active Sasha Espitia APRN Active FLINSTONES GUMMIES OMEGA-3 DHA ORAL CHEW 2 gummies per day PEDIATRIC MULTIPLE VIT-C-FA 30397546092 Active Sasha Espitia APRN Active CLINDAMYCIN HCL 150 MG CAPS 1 four times a day for 1 week CLINDAMYCIN HCL 20116022186 No Longer Active Karen Jaramillo MD Active TRIAMCINOLONE ACETONIDE 0.1 % CREA Apply to affected areas TID for up to 1 week TRIAMCINOLONE ACETONIDE 57652523201 No Longer Active Rian Ortega MD Active ZITHROMAX 1 GM ORAL PACK Take 1 time and recheck lab in 2-3 weeks AZITHROMYCIN 57978782854 No Longer Active Rian Ortega MD Active FLAGYL 500 MG TAB four tabs PO x 1 METRONIDAZOLE 93167736625 No Longer Active Aris Charlton MD Active FLAGYL 500 MG TAB four tabs PO x 1 FLAGYL 500 MG TAB 098136 METRONIDAZOLE Inactive ZITHROMAX 1 GM ORAL PACK Take 1 time and recheck lab in 2-3 weeks ZITHROMAX 1 GM ORAL PACK 025143 AZITHROMYCIN Inactive TRIAMCINOLONE ACETONIDE 0.1 % CREA Apply to affected areas TID for up to 1 week TRIAMCINOLONE ACETONIDE 0.1 % CREA 6092220 TRIAMCINOLONE ACETONIDE Inactive CLINDAMYCIN HCL 150 MG CAPS 1 four times a day for 1 week CLINDAMYCIN HCL 150 MG CAPS 105457 CLINDAMYCIN HCL Inactive CHANTIX 1 MG TABS [...] per day 47006/27 CARAFATE 1 GM TAB 162167 SUCRALFATE Inactive SM VITAMIN B12 TR 1000 MCG ORAL CR-TABS 1 tab po daily 470 SM VITAMIN B12 TR 1000 MCG ORAL CR-TABS CYANOCOBALAMIN Inactive CIPROFLOXACIN HCL 250 MG ORAL TABS 1 twice a day for bladder infection 07/24 CIPROFLOXACIN HCL 250 MG ORAL TABS 328801 CIPROFLOXACIN HCL Inactive AZO TABS TABS 2 tabs qd AZO TABS TABS PHENAZOPYRIDINE HCL TABS Inactive SYMBICORT 160-4.5 MCG/ACT AERO 2 puff BID for 10 days SYMBICORT 160-4.5 MCG/ACT AERO BUDESONIDE-FORMOTEROL FUMARATE Inactive CIPRO 500 MG TAB 1 tablet by mouth twice daily CIPRO 500 MG TAB 607764 CIPROFLOXACIN HCL Inactive AZITHROMYCIN 250 MG TABS 2 po qd x 1 day, then 1 po qd x 4 days AZITHROMYCIN 250 MG TABS 593319 AZITHROMYCIN Inactive Immunizations Vaccine Administration Date Value [...] HGBA1C - Chemistry sodium, serum 142 mmol/L [phone] carbon dioxide, venous blood 32.8 mmol/L 21.0-32.0 [...] Panel - Chemistry cholesterol, serum 165 mg/dL [phone] triglyceride, serum, fasting 124 mg/dL 30-200 HDL [...] 30-100 Encounters Code Encounter Date Provider Facility CPT-66359 Level 3 Est. Patient 11:54:40 CDT Rian Ortega MD [facility] CPT-32838 Level 3 Est. Patient 11:17:51 CDT Carline Best [facility] CPT-57156 Level 3 Est. Patient 15:43:38 CDT Tariq Marrero MD [facility] CPT-24911 Level 3 Est. Patient 11:16:27 VENEER DRIER [facility] CPT-97289 Level 4 Est. Patient 08:56:42 VENEER DRIER Sasha Espitia [facility] CPT-51861 Level 3 Est. Patient 16:40:58 CDT Rian Ortega MD [facility] CPT-01257 Level 3 Est. Patient 13:55:16 VENEER DRIER Rian Ortega MD [facility] CPT-59629 Level 3 Est. Patient 10:42:52 CDT Corrina Bailon [facility] CPT-79910 Level 3 Est. Patient 11:18:30 CDT Aris Charlton MD [facility] Procedures Code Procedure Name Date Entry Date Standard Description CPT-57798 UA w micro - LAB USE ONLY 13:09:18 VENEER DRIER CPT-44031 Urine Culture - LAB USE ONLY 13:09:18 VENEER DRIER CPT-23238 Wet Mount - LAB USE ONLY 11:11:39 VENEER DRIER CPT-81718 Lipid - LAB USE ONLY 15:05:24 VENEER DRIER CPT-00634 PT/INR - LAB USE ONLY 12:14:07 CDT CPT-24695 HGBA1C - LAB USE ONLY 12:14:07 CDT CPT-17077 CMP - LAB USE ONLY 12:14:07 CDT CPT-94661 CBC - LAB USE ONLY 12:14:07 CDT CPT-63781 Venipuncture Draw Fee 12:14:06 CDT CPT-J0702 Celestone 6 mg (Betamethasone) 15:04:45 VENEER DRIER CPT-52146 Abx/Therapy Injection 15:04:45 VENEER DRIER CPT-J0702 Celestone 12 mg (Betamethasone) 11:45:31 VENEER DRIER CPT-63751 Visit 11:39:52 VENEER DRIER CPT-70299B Sono biophysical pro wo stress test-[place] Only 11:21: 42 VENEER DRIER CPT-76005 Visit 16:00:50 VENEER DRIER CPT-73920T Sono biophysical pro wo stress test-[place] Only 13:12: 18 VENEER DRIER CPT-62241 Sono biophysical pro wo stress test 11:17:21 VENEER DRIER 05/21 CPT-55676 Tdap 7yrs or > 15:22:51 VENEER DRIER CPT-09555 Immunization Single Admin 15:22:51 VENEER DRIER CPT-43828 Tdap 7yrs or > 15:09:13 VENEER DRIER CPT-64963 Visit 14:54:16 VENEER DRIER CPT-40937 Fluzone Quadrivalent Intramuscular Suspension 0.5 ML 16: 58:58 CDT CPT-73014 Administration single or combination vaccine inc oral 16 :58:58 CDT CPT-19336 Fluzone Thim Free 36mo and older 14:47:39 CDT CPT-73800 Visit 14:47:39 CDT CPT-24079 Sono OB limited 10:30:07 CDT CPT-81688 Visit 10:04:44 CDT CPT-39292 Sono OB comp > 14 weeks 12:50:41 CDT CPT-71868 Visit 12:06:25 CDT CPT-20073 Visit 12:43:15 CDT CPT-16784 Visit 10:06:02 CDT CPT-73199 Spec Collection and Handling Fee 10:00:31 CDT CPT-76602 Visit 10:00:30 CDT CPT-10156 Drug Screen Grisel 14:36:13 CDT
--- OUTSIDE RECORDS SUMMARY | 2018-08-28 06:29 | XMS REPORT | Clinical Summary ---
Author Author Admin, E Organization [facility] Address Unknown Phone Unavailable Allergies, Adverse [...] Active Rian Ortega MD Tobacco use disorder Move Coordinator well woman exam V72.31 Active Sasha [...] of elderly primigravida, second trimester ICD-V23.83 Inactive aKren Jaramillo MD Weight loss ICD-783.21 Inactive Karen [...] Rian Ortega MD Abscess, skin ICD-682.9 Inactive Rain Ortega MD 30 weeks gestation of ICD-V28.9 [...] as needed for muscle spasm CYCLOBENZAPRINE HCL 20345193610 Active Rian Ortega MD Active SYMBICORT 160-4.5 MCG/ACT AERO 2 puff BID for 10 days BUDESONIDE-FORMOTEROL FUMARATE 38260259292 No Longer Active Rian Ortega MD Active GUAIFENESIN 600 MG [id number] 1 twice a day as needed for congestion GUAIFENESIN 00557861258 Active Jillina Estephania PÉREZ Active AZITHROMYCIN 250 MG TABS 2 po qd x 1 day, then 1 po qd x 4 days AZITHROMYCIN 29615103180 No Longer Active Carline Best APRN Active CIPRO 500 MG TAB 1 tablet by mouth twice daily CIPROFLOXACIN HCL 82285183025 No Longer Active Tariq Marrero MD Active AZO TABS TABS 2 tabs qd PHENAZOPYRIDINE HCL TABS 23094606092 No Longer Active Tariq Marrero MD Active CIPROFLOXACIN HCL 250 MG ORAL TABS 1 twice a day for bladder infection 07/24 CIPROFLOXACIN HCL 69016694641 No Longer Active Tariq Marrero MD Active SM VITAMIN B12 TR 1000 MCG ORAL CR-TABS 1 tab po daily CYANOCOBALAMIN 77686166234 No Longer Active Nereyda Michael WEATHERIZATION AND HOUSING INSPECTOR Active CARAFATE 1 GM TAB 1 tab po as needed up to 4 times per day SUCRALFATE 10575474010 No Longer Active Nereyda Rodriguez APRN Active PNV PLUS MULTIVITAMIN 27-1 MG ORAL TABS 1 daily VIT-FE FUMARATE-FA 87477018287 No Longer Active Sasha Espitia APRN Active CHANTIX STARTING MONTH DANILO 0.5 MG X 11 & 1 MG X 42 TABS take as directed 2015 VARENICLINE TARTRATE 10131598377 No Longer Active Sasha Espitia APRN Active CHANTIX 1 MG TABS 1 twice a day to help quit smoking VARENICLINE TARTRATE 38206453012 No Longer Active Sasha Espitia APRN Active OMEPRAZOLE 20 MG CPDR 1 tablet by mouth daily OMEPRAZOLE 52945603716 Active Sasha Espitia APRN Active FLINSTONES GUMMIES OMEGA-3 DHA ORAL CHEW 2 gummies per day PEDIATRIC MULTIPLE VIT-C-FA 86917690354 Active Sasha Espitia APRN Active CLINDAMYCIN HCL 150 MG CAPS 1 four times a day for 1 week CLINDAMYCIN HCL 83589415220 No Longer Active Karen Jaramillo MD Active TRIAMCINOLONE ACETONIDE 0.1 % CREA Apply to affected areas TID for up to 1 week TRIAMCINOLONE ACETONIDE 87985214957 No Longer Active Rian Ortega MD Active ZITHROMAX 1 GM ORAL PACK Take 1 time and recheck lab in 2-3 weeks AZITHROMYCIN 26914997435 No Longer Active Rian Ortega MD Active FLAGYL 500 MG TAB four tabs PO x 1 METRONIDAZOLE 20158106412 No Longer Active Aris Charlton MD Active FLAGYL 500 MG TAB four tabs PO x 1 FLAGYL 500 MG TAB 541751 METRONIDAZOLE Inactive ZITHROMAX 1 GM ORAL PACK Take 1 time and recheck lab in 2-3 weeks ZITHROMAX 1 GM ORAL PACK 359535 AZITHROMYCIN Inactive TRIAMCINOLONE ACETONIDE 0.1 % CREA Apply to affected areas TID for up to 1 week TRIAMCINOLONE ACETONIDE 0.1 % CREA 4668622 TRIAMCINOLONE ACETONIDE Inactive CLINDAMYCIN HCL 150 MG CAPS 1 four times a day for 1 week CLINDAMYCIN HCL 150 MG CAPS 718612 CLINDAMYCIN HCL Inactive CHANTIX 1 MG TABS [...] per day 06/27 CARAFATE 1 GM TAB 061192 SUCRALFATE Inactive SM VITAMIN B12 TR 1000 MCG ORAL CR-TABS 1 tab po daily 470 SM VITAMIN B12 TR 1000 MCG ORAL CR-TABS CYANOCOBALAMIN Inactive CIPROFLOXACIN HCL 250 MG ORAL TABS 1 twice a day for bladder infection 07/24 CIPROFLOXACIN HCL 250 MG ORAL TABS 171540 CIPROFLOXACIN HCL Inactive AZO TABS TABS 2 tabs qd AZO TABS TABS PHENAZOPYRIDINE HCL TABS Inactive SYMBICORT 160-4.5 MCG/ACT AERO 2 puff BID for 10 days SYMBICORT 160-4.5 MCG/ACT AERO BUDESONIDE-FORMOTEROL FUMARATE Inactive CIPRO 500 MG TAB 1 tablet by mouth twice daily CIPRO 500 MG TAB 273315 CIPROFLOXACIN HCL Inactive AZITHROMYCIN 250 MG TABS 2 po qd x 1 day, then 1 po qd x 4 days AZITHROMYCIN 250 MG TABS 502965 AZITHROMYCIN Inactive Immunizations Vaccine Administration Date Value [...] HGBA1C - Chemistry sodium, serum 142 mmol/L [phone] carbon dioxide, venous blood 32.8 mmol/L 21.0-32.0 [...] Panel - Chemistry cholesterol, serum 165 mg/dL [phone] triglyceride, serum, fasting 124 mg/dL 30-200 HDL [...] 30-100 Encounters Code Encounter Date Provider Facility CPT-74640 Level 3 Est. Patient 11:54:40 CDT Rian Ortega MD [facility] CPT-59225 Level 3 Est. Patient 11:17:51 CDT Carline Best [facility] [place] CPT-41603 Level 3 Est. Patient 15:43:38 CDT Tariq Marrero MD [facility] CPT-74722 Level 3 Est. Patient 11:16:27 PROFILE STITCHING MACHINE OPERATOR Nereyda Rodriguez [facility] [place] CPT-59166 Level 4 Est. Patient 08:56:42 PROFILE STITCHING MACHINE OPERATOR Sasha Espitia [facility] [place] CPT-63185 Level 3 Est. Patient 16:40:58 CDT Rian Ortega MD [facility] CPT-41678 Level 3 Est. Patient 13:55:16 PROFILE STITCHING MACHINE OPERATOR Rian Ortega MD [facility] CPT-59796 Level 3 Est. Patient 10:42:52 CDT Corrina Bailon [facility] CPT-11222 Level 3 Est. Patient 11:18:30 CDT Aris Charlton MD [facility] Procedures Code Procedure Name Date Entry Date Standard Description CPT-06477 UA w micro - LAB USE ONLY 13:09:18 PROFILE STITCHING MACHINE OPERATOR CPT-92572 Urine Culture - LAB USE ONLY 13:09:18 PROFILE STITCHING MACHINE OPERATOR CPT-05835 Wet Mount - LAB USE ONLY 11:11:39 PROFILE STITCHING MACHINE OPERATOR CPT-56259 Lipid - LAB USE ONLY 15:05:24 PROFILE STITCHING MACHINE OPERATOR CPT-41192 PT/INR - LAB USE ONLY 12:14:07 CDT CPT-81446 HGBA1C - LAB USE ONLY 12:14:07 CDT CPT-75539 CMP - LAB USE ONLY 12:14:07 CDT CPT-16504 CBC - LAB USE ONLY 12:14:07 CDT CPT-57959 Venipuncture Draw Fee 12:14:06 CDT CPT-J0702 Celestone 6 mg (Betamethasone) 15:04:45 PROFILE STITCHING MACHINE OPERATOR CPT-58664 Abx/Therapy Injection 15:04:45 PROFILE STITCHING MACHINE OPERATOR CPT-J0702 Celestone 12 mg (Betamethasone) 11:45:31 PROFILE STITCHING MACHINE OPERATOR CPT-36019 Visit 11:39:52 PROFILE STITCHING MACHINE OPERATOR CPT-60206P Sono biophysical pro wo stress test-[place] Only 11:21: 42 PROFILE STITCHING MACHINE OPERATOR CPT-33717 Visit 16:00:50 PROFILE STITCHING MACHINE OPERATOR CPT-97258I Sono biophysical pro wo stress test-[place] Only 13:12: 18 PROFILE STITCHING MACHINE OPERATOR CPT-95368 Sono biophysical pro wo stress test 11:17:21 PROFILE STITCHING MACHINE OPERATOR 05/21 CPT-19718 Tdap 7yrs or > 15:22:51 PROFILE STITCHING MACHINE OPERATOR CPT-61833 Immunization Single Admin 15:22:51 PROFILE STITCHING MACHINE OPERATOR CPT-82857 Tdap 7yrs or > 15:09:13 PROFILE STITCHING MACHINE OPERATOR CPT-75764 Visit 14:54:16 PROFILE STITCHING MACHINE OPERATOR CPT-09681 Fluzone Quadrivalent Intramuscular Suspension 0.5 ML 16: 58:58 CDT CPT-41698 Administration single or combination vaccine inc oral 16 :58:58 CDT CPT-13806 Fluzone Thim Free 36mo and older 14:47:39 CDT CPT-14579 Visit 14:47:39 CDT CPT-68126 Sono OB limited 10:30:07 CDT CPT-58866 Visit 10:04:44 CDT CPT-14054 Sono OB comp > 14 weeks 12:50:41 CDT CPT-35137 Visit 12:06:25 CDT CPT-15912 Visit 12:43:15 CDT CPT-60463 Visit 10:06:02 CDT CPT-18303 Spec Collection and Handling Fee 10:00:31 CDT CPT-35329 Visit 10:00:30 CDT CPT-14873 Drug Screen Grisel 14:36:13 CDT
--- OUTSIDE RECORDS SUMMARY | 2018-08-28 06:29 | XMS REPORT | Clinical Summary ---
Author Author Admin, E Organization [facility] Address Unknown Phone Unavailable Allergies, Adverse Reactions, [...] Active Rian Ortega MD Tobacco use disorder Timber Faller well woman exam V72.31 Active Sasha Tan [...] then 1 daily for 4 days AZITHROMYCIN 94095098176 Active Mahsabelkys Riveradanyell Active AZITHROMYCIN 250 MG ORAL TABLET 2 po qd x 1 day, then 1 po qd x 4 days 07/27 AZITHROMYCIN 32954006530 No Longer Active Carline Best APRN Active GUAIFENESIN ER 600 MG ORAL TABLET EXTENDED RELEASE 12 HOUR 1 twice a day as needed for congestion GUAIFENESIN 75112814966 No Longer Active Sasha Tan APRN Active CYCLOBENZAPRINE HCL 10 MG ORAL TABLET 1 three times a day as needed for muscle spasm CYCLOBENZAPRINE HCL 17189869642 No Longer Active Sasha Tan APRN Active SYMBICORT 160-4.5 MCG/ACT INHALATION AEROSOL 2 puff BID for 10 days BUDESONIDE-FORMOTEROL FUMARATE 15293772964 No Longer Active Rian Ortega MD Active AZITHROMYCIN 250 MG ORAL TABLET 2 po qd x 1 day, then 1 po qd x 4 days 02/15 AZITHROMYCIN 96176351566 No Longer Active Carline Bset APRN Active CIPRO 500 MG ORAL TABLET 1 tablet by mouth twice daily CIPROFLOXACIN HCL 61852166930 No Longer Active Tariq Marrero MD Active AZO TABS TABLET 2 tabs qd PHENAZOPYRIDINE HCL TABS 79300261892 No Longer Active Tariq Marrero MD Active CIPROFLOXACIN HCL 250 MG ORAL TABLET 1 twice a day for bladder infection 2016 CIPROFLOXACIN HCL 96565474918 No Longer Active Tariq Marrero MD Active SM VITAMIN B12 TR 1000 MCG ORAL TABLET EXTENDED RELEASE 1 tab po daily 04/24 CYANOCOBALAMIN 90033417853 No Longer Active Nereyda Rodriguez APRN Active CARAFATE 1 GM ORAL TABLET 1 tab po as needed up to 4 times per day SUCRALFATE 25538493010 No Longer Active Nereyda Rodriguez APRN Active PNV PLUS MULTIVITAMIN 27-1 MG ORAL TABLET 1 daily 04/24 VIT-FE FUMARATE-FA 63700481203 No Longer Active Sasha Tan APRN Active CHANTIX STARTING MONTH DANILO 0.5 MG X 11 & 1 MG X 42 ORAL TABLET take as directed VARENICLINE TARTRATE 19933604814 No Longer Active Sasha Tan APRN Active CHANTIX 1 MG ORAL TABLET 1 twice a day to help quit smoking 04/24 VARENICLINE TARTRATE 78329924690 No Longer Active Sasha Tan APRN Active OMEPRAZOLE 20 MG ORAL CAPSULE DELAYED RELEASE 1 tablet by mouth daily OMEPRAZOLE 12136385612 Active Sasha Tan APRN Active FLINSTONES GUMMIES OMEGA-3 DHA ORAL TABLET CHEWABLE 2 gummies per day PEDIATRIC MULTIPLE VIT-C-FA 62122312876 Active Sasha Tan APRN Active CLINDAMYCIN HCL 150 MG ORAL CAPSULE 1 four times a day for 1 week CLINDAMYCIN HCL 26856451138 No Longer Active Karen Jaramillo MD Active TRIAMCINOLONE ACETONIDE 0.1 % EXTERNAL CREAM Apply to affected areas TID for up to 1 week TRIAMCINOLONE ACETONIDE 44957214293 No Longer Active Rian Ortega MD Active ZITHROMAX 1 GM ORAL PACKET Take 1 time and recheck lab in 2-3 weeks AZITHROMYCIN 92224358733 No Longer Active Rian Ortega MD Active FLAGYL 500 MG ORAL TABLET four tabs PO x 1 METRONIDAZOLE 19337091226 No Longer Active Aris Charlton MD Active FLAGYL 500 MG ORAL TABLET four tabs PO x 1 FLAGYL 500 MG ORAL TABLET 141885 METRONIDAZOLE Inactive ZITHROMAX 1 GM ORAL PACKET Take 1 time and recheck lab in 2-3 weeks ZITHROMAX 1 GM ORAL PACKET 019612 AZITHROMYCIN Inactive TRIAMCINOLONE ACETONIDE 0.1 % EXTERNAL CREAM Apply to affected areas TID for up to 1 week TRIAMCINOLONE ACETONIDE 0.1 % EXTERNAL CREAM 0670924 TRIAMCINOLONE ACETONIDE Inactive CLINDAMYCIN HCL 150 MG ORAL CAPSULE 1 four times a day for 1 week CLINDAMYCIN HCL 150 MG ORAL CAPSULE 099812 CLINDAMYCIN HCL Inactive CHANTIX 1 MG ORAL [...] per day CARAFATE 1 GM ORAL TABLET 938441 SUCRALFATE Inactive SM VITAMIN B12 TR 1000 MCG ORAL TABLET EXTENDED RELEASE 1 tab po daily 04/24 SM VITAMIN B12 TR 1000 MCG ORAL TABLET EXTENDED RELEASE CYANOCOBALAMIN Inactive CIPROFLOXACIN HCL 250 MG ORAL TABLET 1 twice a day for bladder infection 2016 CIPROFLOXACIN HCL 250 MG ORAL TABLET 328394 CIPROFLOXACIN HCL Inactive AZO TABS TABLET 2 tabs qd AZO TABS TABLET PHENAZOPYRIDINE HCL TABS Inactive SYMBICORT 160-4.5 MCG/ACT INHALATION AEROSOL 2 puff BID for 10 days SYMBICORT 160-4.5 MCG/ACT INHALATION AEROSOL BUDESONIDE- FORMOTEROL FUMARATE Inactive CYCLOBENZAPRINE HCL 10 MG ORAL TABLET 1 three times a day as needed for muscle spasm CYCLOBENZAPRINE HCL 10 MG ORAL TABLET 315156 CYCLOBENZAPRINE HCL Inactive GUAIFENESIN ER 600 MG ORAL TABLET EXTENDED RELEASE 12 HOUR 1 twice a day as needed for congestion GUAIFENESIN ER 600 MG ORAL TABLET EXTENDED RELEASE 12 HOUR GUAIFENESIN Inactive CIPRO 500 MG ORAL TABLET 1 tablet by mouth twice daily CIPRO 500 MG ORAL TABLET 471067 CIPROFLOXACIN HCL Inactive AZITHROMYCIN 250 MG ORAL TABLET 2 po qd x 1 day, then 1 po qd x 4 days 02/15 AZITHROMYCIN 250 MG ORAL TABLET 144280 AZITHROMYCIN Inactive AZITHROMYCIN 250 MG ORAL TABLET 2 po qd x 1 day, then 1 po qd x 4 days 07/27 AZITHROMYCIN 250 MG ORAL TABLET 863954 AZITHROMYCIN Inactive Immunizations Vaccine Administration Date Value [...] ... - Chemistry cholesterol, serum 142 mg/dL 852-911 5075/10/24 triglyceride, serum, fasting 77 mg/dL 30-200 HDL [...] Panel - Chemistry sodium, serum 137 mmol/L 243-805 4578/10/24 carbon dioxide, venous blood 24.4 mmol/L 21.0-32.0 [...] Negative;Positive Encounters Code Encounter Date Provider Facility CPT-71957 Level 3 Est. Patient 14:41:20 CDT Tariq Marrero MD [facility] CPT-46049 Level 3 Est. Patient 11:06:09 CIRCULAR KNIFE MACHINE CUTTER Carline Best [facility] CPT-53749 Level 3 Est. Patient 15:59:13 CIRCULAR KNIFE MACHINE CUTTER Carline Best [facility] CPT-72586 Employment/ICC Exam 15:03:09 CIRCULAR KNIFE MACHINE CUTTER Sasha Tan [facility] CPT-56559 Level 3 Est. Patient 11:54:40 CDT Rian rOtega MD [facility] CPT-06593 Level 3 Est. Patient 11:17:51 CDT Carline Best [facility] CPT-00724 Level 3 Est. Patient 15:43:38 CDT Tariq Marrero MD [facility] CPT-84818 Level 3 Est. Patient 11:16:27 CIRCULAR KNIFE MACHINE CUTTER Nereyda Rodriguez [facility] CPT-82595 Level 4 Est. Patient 08:56:42 CIRCULAR KNIFE MACHINE CUTTER Sasha Tan [facility] CPT-87798 Level 3 Est. Patient 16:40:58 CDT Rian Ortega MD [facility] CPT-47088 Level 3 Est. Patient 13:55:16 CIRCULAR KNIFE MACHINE CUTTER Rian Ortega MD [facility] CPT-94759 Level 3 Est. Patient 10:42:52 CDT Corrina Bailon TECHNICAL ASST [facility] CPT-38314 Level 3 Est. Patient 11:18:30 CDT Aris Charlton MD [facility] Procedures Code Procedure Name Date Entry Date Standard Description CPT-77650 UA w micro - LAB USE ONLY 13:09:18 CIRCULAR KNIFE MACHINE CUTTER CPT-13795 Urine Culture - LAB USE ONLY 13:09:18 CIRCULAR KNIFE MACHINE CUTTER CPT-46234 Wet Mount - LAB USE ONLY 11:11:39 CIRCULAR KNIFE MACHINE CUTTER CPT-97776 Lipid - LAB USE ONLY 15:05:24 CIRCULAR KNIFE MACHINE CUTTER CPT-03647 PT/INR - LAB USE ONLY 12:14:07 CDT CPT-29725 HGBA1C - LAB USE ONLY 12:14:07 CDT CPT-82718 CMP - LAB USE ONLY 12:14:07 CDT CPT-16069 CBC - LAB USE ONLY 12:14:07 CDT CPT-89901 Venipuncture Draw Fee 12:14:06 CDT CPT-J0702 Celestone 6 mg (Betamethasone) 15:04:45 CIRCULAR KNIFE MACHINE CUTTER CPT-45246 Abx/Therapy Injection 15:04:45 CIRCULAR KNIFE MACHINE CUTTER CPT-J0702 Celestone 12 mg (Betamethasone) 11:45:31 CIRCULAR KNIFE MACHINE CUTTER CPT-53919 Visit 11:39:52 CIRCULAR KNIFE MACHINE CUTTER CPT-98978H Sono biophysical pro wo stress test-[place] Only 11:21: 42 CIRCULAR KNIFE MACHINE CUTTER CPT-29927 Visit 16:00:50 CIRCULAR KNIFE MACHINE CUTTER CPT-56773H Sono biophysical pro wo stress test-[place] Only 13:12: 18 CIRCULAR KNIFE MACHINE CUTTER CPT-82740 Sono biophysical pro wo stress test 11:17:21 CIRCULAR KNIFE MACHINE CUTTER 05/21 CPT-39619 Tdap 7yrs or > 15:22:51 CIRCULAR KNIFE MACHINE CUTTER CPT-28467 Immunization Single Admin 15:22:51 CIRCULAR KNIFE MACHINE CUTTER CPT-25571 Tdap 7yrs or > 15:09:13 CIRCULAR KNIFE MACHINE CUTTER CPT-11437 Visit 14:54:16 CIRCULAR KNIFE MACHINE CUTTER CPT-66516 Fluzone Quadrivalent Intramuscular Suspension 0.5 ML 16: 58:58 CDT CPT-92197 Administration single or combination vaccine inc oral 16 :58:58 CDT CPT-15847 Fluzone Thim Free 36mo and older 14:47:39 CDT CPT-00279 Visit 14:47:39 CDT CPT-02825 Sono OB limited 10:30:07 CDT CPT-34860 Visit 10:04:44 CDT CPT-38881 Sono OB comp > 14 weeks 12:50:41 CDT CPT-82441 Visit 12:06:25 CDT CPT-10286 Visit 12:43:15 CDT CPT-27076 Visit 10:06:02 CDT CPT-91031 Spec Collection and Handling Fee 10:00:31 CDT CPT-05406 Visit 10:00:30 CDT CPT-48396 Drug Screen [place] 14:36:13 CDT
--- OUTSIDE RECORDS SUMMARY | 2018-08-28 06:30 | XMS REPORT | Clinical Summary ---
Author Author Admin, [facility] Organization [facility] Address Unknown [...] Active Rian Ortega MD Tobacco use disorder Ground Services Instructor well woman exam V72.31 Active Sasha Espitia [...] Cough 786.2 Active Carline Best APRN Cough Health examination of defined subpopulations ICD-V70.5 Inactive [...] po qd x 4 days 07/27 AZITHROMYCIN 62261722821 Active Carline Best APRN Active GUAIFENESIN ER 600 MG ORAL TABLET EXTENDED RELEASE 12 HOUR 1 twice a day as needed for congestion GUAIFENESIN 55831402641 No Longer Active Sasha Espitia APRN Active CYCLOBENZAPRINE HCL 10 MG ORAL TABLET 1 three times a day as needed for muscle spasm CYCLOBENZAPRINE HCL 20526956713 No Longer Active Sasha Espitia APRN Active SYMBICORT 160-4.5 MCG/ACT INHALATION AEROSOL 2 puff BID for 10 days BUDESONIDE-FORMOTEROL FUMARATE 50420422155 No Longer Active Rian Ortega MD Active AZITHROMYCIN 250 MG ORAL TABLET 2 po qd x 1 day, then 1 po qd x 4 days 02/15 AZITHROMYCIN 19356719926 No Longer Active Carline Best APRN Active CIPRO 500 MG ORAL TABLET 1 tablet by mouth twice daily CIPROFLOXACIN HCL 38078665474 No Longer Active Tariq Marrero MD Active AZO TABS TABLET 2 tabs qd PHENAZOPYRIDINE HCL TABS 68830508999 No Longer Active Tariq Marrero MD Active CIPROFLOXACIN HCL 250 MG ORAL TABLET 1 twice a day for bladder infection 2016 CIPROFLOXACIN HCL 76872126737 No Longer Active Tariq Marrero MD Active SM VITAMIN B12 TR 1000 MCG ORAL TABLET EXTENDED RELEASE 1 tab po daily 04/24 CYANOCOBALAMIN 34684300686 No Longer Active Nereyda Rodriguez APRN Active CARAFATE 1 GM ORAL TABLET 1 tab po as needed up to 4 times per day SUCRALFATE 51383869788 No Longer Active Nereyda Rodriguez APRN Active PNV PLUS MULTIVITAMIN 27-1 MG ORAL TABLET 1 daily 04/24 VIT-FE FUMARATE-FA 46791329286 No Longer Active Sasha sEpitia APRN Active CHANTIX STARTING MONTH DANILO 0.5 MG X 11 & 1 MG X 42 ORAL TABLET take as directed VARENICLINE TARTRATE 07828454394 No Longer Active Sasha Espitia APRN Active CHANTIX 1 MG ORAL TABLET 1 twice a day to help quit smoking 04/24 VARENICLINE TARTRATE 17504982607 No Longer Active Sasha Espitia APRN Active OMEPRAZOLE 20 MG ORAL CAPSULE DELAYED RELEASE 1 tablet by mouth daily OMEPRAZOLE 31406907321 Active Sasha Espitia APRN Active FLINSTONES GUMMIES OMEGA-3 DHA ORAL TABLET CHEWABLE 2 gummies per day PEDIATRIC MULTIPLE VIT-C-FA 88417882481 Active Sasha sEpitia APRN Active CLINDAMYCIN HCL 150 MG ORAL CAPSULE 1 four times a day for 1 week CLINDAMYCIN HCL 00098341016 No Longer Active Karen Jaramillo MD Active TRIAMCINOLONE ACETONIDE 0.1 % EXTERNAL CREAM Apply to affected areas TID for up to 1 week TRIAMCINOLONE ACETONIDE 09019633995 No Longer Active Rian Ortega MD Active ZITHROMAX 1 GM ORAL PACKET Take 1 time and recheck lab in 2-3 weeks AZITHROMYCIN 19413811993 No Longer Active Rian Ortega MD Active FLAGYL 500 MG ORAL TABLET four tabs PO x 1 METRONIDAZOLE 96981700385 No Longer Active Aris Charlton MD Active FLAGYL 500 MG ORAL TABLET four tabs PO x 1 FLAGYL 500 MG ORAL TABLET 544705 METRONIDAZOLE Inactive ZITHROMAX 1 GM ORAL PACKET Take 1 time and recheck lab in 2-3 weeks ZITHROMAX 1 GM ORAL PACKET 838707 AZITHROMYCIN Inactive TRIAMCINOLONE ACETONIDE 0.1 % EXTERNAL CREAM Apply to affected areas TID for up to 1 week TRIAMCINOLONE ACETONIDE 0.1 % EXTERNAL CREAM 7289442 TRIAMCINOLONE ACETONIDE Inactive CLINDAMYCIN HCL 150 MG ORAL CAPSULE 1 four times a day for 1 week CLINDAMYCIN HCL 150 MG ORAL CAPSULE 350909 CLINDAMYCIN HCL Inactive CHANTIX 1 MG ORAL [...] per day CARAFATE 1 GM ORAL TABLET 765021 SUCRALFATE Inactive SM VITAMIN B12 TR 1000 MCG ORAL TABLET EXTENDED RELEASE 1 tab po daily 04/24 SM VITAMIN B12 TR 1000 MCG ORAL TABLET EXTENDED RELEASE CYANOCOBALAMIN Inactive CIPROFLOXACIN HCL 250 MG ORAL TABLET 1 twice a day for bladder infection 2016 CIPROFLOXACIN HCL 250 MG ORAL TABLET 174798 CIPROFLOXACIN HCL Inactive AZO TABS TABLET 2 tabs qd AZO TABS TABLET PHENAZOPYRIDINE HCL TABS Inactive SYMBICORT 160-4.5 MCG/ACT INHALATION AEROSOL 2 puff BID for 10 days SYMBICORT 160-4.5 MCG/ACT INHALATION AEROSOL BUDESONIDE- FORMOTEROL FUMARATE Inactive CYCLOBENZAPRINE HCL 10 MG ORAL TABLET 1 three times a day as needed for muscle spasm CYCLOBENZAPRINE HCL 10 MG ORAL TABLET 251383 CYCLOBENZAPRINE HCL Inactive GUAIFENESIN ER 600 MG ORAL TABLET EXTENDED RELEASE 12 HOUR 1 twice a day as needed for congestion GUAIFENESIN ER 600 MG ORAL TABLET EXTENDED RELEASE 12 HOUR GUAIFENESIN Inactive CIPRO 500 MG ORAL TABLET 1 tablet by mouth twice daily CIPRO 500 MG ORAL TABLET 679025 CIPROFLOXACIN HCL Inactive AZITHROMYCIN 250 MG ORAL TABLET 2 po qd x 1 day, then 1 po qd x 4 days 02/15 AZITHROMYCIN 250 MG ORAL TABLET 178750 AZITHROMYCIN Inactive Immunizations Vaccine Administration Date Value [...] ... - Chemistry cholesterol, serum 142 mg/dL 808-905 5145/10/24 triglyceride, serum, fasting 77 mg/dL 30-200 HDL [...] % 11.6-14.8 platelet count 291 10^3/MM^3 10*3/mm3 551-951 1390/10/24 mean corpuscular volume, RBC 90 fL 80-97 hematocrit, blood 40.6 % 37.0-47.0 hemoglobin, blood 13.3 g/dL 12.0-16.0 erythrocyte (RBC) count 4.51 10^6/MM^3 10*6/mm3 3.80-5.80 leukocyte count, blood 6.9 10^3/MM^3 10*3/mm3 4.6-10.2 Lab Report: Comp. Metabolic Panel - Chemistry sodium, serum 137 mmol/L 474-303 8410/10/24 carbon dioxide, venous blood 24.4 mmol/L 21.0-32.0 [...] Negative;Positive Encounters Code Encounter Date Provider Facility CPT-47016 Level 3 Est. Patient 15:59:13 INFORMATION ASSURANCE MANAGER Carline Best [facility] CPT-45249 Employment/ICC Exam 15:03:09 INFORMATION ASSURANCE MANAGER Sasha Espitia [facility] CPT-14027 Level 3 Est. Patient 11:54:40 CDT Rian Ortega MD [facility] CPT-56539 Level 3 Est. Patient 11:17:51 CDT Carline Best [facility] CPT-31937 Level 3 Est. Patient 15:43:38 CDT Tariq Marrero MD [facility] CPT-67091 Level 3 Est. Patient 11:16:27 INFORMATION ASSURANCE MANAGER Nereyda Rodriguez [facility] CPT-14008 Level 4 Est. Patient 08:56:42 INFORMATION ASSURANCE MANAGER Sasha Espitia [facility] CPT-99281 Level 3 Est. Patient 16:40:58 CDT Rian Ortega MD [facility] CPT-47817 Level 3 Est. Patient 13:55:16 INFORMATION ASSURANCE MANAGER Rian Ortega MD [facility] CPT-03400 Level 3 Est. Patient 10:42:52 CDT Corrina Bailon [facility] CPT-19881 Level 3 Est. Patient 11:18:30 CDT Aris Charlton MD [facility] Procedures Code Procedure Name Date Entry Date Standard Description CPT-07623 UA w micro - LAB USE ONLY 13:09:18 INFORMATION ASSURANCE MANAGER CPT-64179 Urine Culture - LAB USE ONLY 13:09:18 INFORMATION ASSURANCE MANAGER CPT-03291 Wet Mount - LAB USE ONLY 11:11:39 INFORMATION ASSURANCE MANAGER CPT-66190 Lipid - LAB USE ONLY 15:05:24 INFORMATION ASSURANCE MANAGER CPT-62360 PT/INR - LAB USE ONLY 12:14:07 CDT CPT-10098 HGBA1C - LAB USE ONLY 12:14:07 CDT CPT-72347 CMP - LAB USE ONLY 12:14:07 CDT CPT-24626 CBC - LAB USE ONLY 12:14:07 CDT CPT-95457 Venipuncture Draw Fee 12:14:06 CDT CPT-J0702 Celestone 6 mg (Betamethasone) 15:04:45 INFORMATION ASSURANCE MANAGER CPT-27692 Abx/Therapy Injection 15:04:45 INFORMATION ASSURANCE MANAGER CPT-J0702 Celestone 12 mg (Betamethasone) 11:45:31 INFORMATION ASSURANCE MANAGER CPT-11931 Visit 11:39:52 INFORMATION ASSURANCE MANAGER CPT-72050W Sono biophysical pro wo stress test[facility] 11:21: 42 INFORMATION ASSURANCE MANAGER CPT-56610 Visit 16:00:50 INFORMATION ASSURANCE MANAGER CPT-30226P Sono biophysical pro wo stress test[facility] 13:12: 18 INFORMATION ASSURANCE MANAGER CPT-76998 Sono biophysical pro wo stress test 11:17:21 INFORMATION ASSURANCE MANAGER 05/21 CPT-33315 Tdap 7yrs or > 15:22:51 INFORMATION ASSURANCE MANAGER CPT-46654 Immunization Single Admin 15:22:51 INFORMATION ASSURANCE MANAGER CPT-11645 Tdap 7yrs or > 15:09:13 INFORMATION ASSURANCE MANAGER CPT-10895 Visit 14:54:16 INFORMATION ASSURANCE MANAGER CPT-54562 Fluzone Quadrivalent Intramuscular Suspension 0.5 ML 16: 58:58 CDT CPT-79507 Administration single or combination vaccine inc oral 16 :58:58 CDT CPT-61111 Fluzone Thim Free 36mo and older 14:47:39 CDT CPT-00135 Visit 14:47:39 CDT CPT-27214 Sono OB limited 10:30:07 CDT CPT-05395 Visit 10:04:44 CDT CPT-43405 Sono OB comp > 14 weeks 12:50:41 CDT CPT-71793 Visit 12:06:25 CDT CPT-83485 Visit 12:43:15 CDT CPT-72935 Visit 10:06:02 CDT CPT-50537 Spec Collection and Handling Fee 10:00:31 CDT CPT-56089 Visit 10:00:30 CDT CPT-49318 Drug Screen Grisel 14:36:13 CDT
--- OUTSIDE RECORDS SUMMARY | 2018-08-28 06:30 | XMS REPORT | Clinical Summary ---
Author Author Admin, [facility] Organization [facility] Address Unknown Phone Unavailable Allergies, Adverse [...] Active Rian Ortega MD Tobacco use disorder Branch Officer well woman exam V72.31 Active Sasha Espitia [facility] DIRECTOR Routine gynecological examination Bariatric operative procedure V45.86 [...] MG ORAL TABS 1 daily VIT-FE FUMARATE-FA 78058915447 No Longer Active Sasha Espitia APRN Active CHANTIX STARTING MONTH DANILO 0.5 MG X 11 & 1 MG X 42 TABS take as directed 2015 VARENICLINE TARTRATE 64546549966 No Longer Active Sasha Espitia APRN Active CHANTIX 1 MG TABS 1 twice a day to help quit smoking VARENICLINE TARTRATE 55488824826 No Longer Active Sasha Espitia APRN Active OMEPRAZOLE 20 MG CPDR 1 tablet by mouth daily OMEPRAZOLE 38983592636 Active Sasha Omkar PÉREZ Active CARAFATE 1 GM TAB 1 tab po as needed up to 4 times per day SUCRALFATE 84922930672 Active Sasha Espitia BETO Active FLINSTONES GUMMIES OMEGA-3 DHA ORAL CHEW 2 gummies per day PEDIATRIC MULTIPLE VIT-C-FA 61149207807 Active Sasha Espitia BETO Active SM VITAMIN B12 TR 1000 MCG ORAL CR-TABS 1 tab po daily CYANOCOBALAMIN 47120261841 Active Sasha Espitia BETO Active CLINDAMYCIN HCL 150 MG CAPS 1 four times a day for 1 week CLINDAMYCIN HCL 56082083195 No Longer Active Karen Jaramillo MD Active TRIAMCINOLONE ACETONIDE 0.1 % CREA Apply to affected areas TID for up to 1 week TRIAMCINOLONE ACETONIDE 02308947750 No Longer Active Rian Ortega MD Active ZITHROMAX 1 GM ORAL PACK Take 1 time and recheck lab in 2-3 weeks AZITHROMYCIN 14663845557 No Longer Active Rian Ortega MD Active FLAGYL 500 MG TAB four tabs PO x 1 METRONIDAZOLE 93972443837 No Longer Active Aris Charlton MD Active FLAGYL 500 MG TAB four tabs PO x 1 FLAGYL 500 MG TAB 188786 METRONIDAZOLE Inactive ZITHROMAX 1 GM ORAL PACK Take 1 time and recheck lab in 2-3 weeks ZITHROMAX 1 GM ORAL PACK 286139 AZITHROMYCIN Inactive TRIAMCINOLONE ACETONIDE 0.1 % CREA Apply to affected areas TID for up to 1 week TRIAMCINOLONE ACETONIDE 0.1 % CREA 2540848 TRIAMCINOLONE ACETONIDE Inactive CLINDAMYCIN HCL 150 MG CAPS 1 four times a day for 1 week CLINDAMYCIN HCL 150 MG CAPS 613402 CLINDAMYCIN HCL Inactive CHANTIX 1 MG TABS [...] Panel - Chemistry cholesterol, serum 165 mg/dL 284-459 8796 triglyceride, serum, fasting 124 mg/dL 30-200 HDL cholesterol, serum 47 mg/dL 32-96 LDL cholesterol, serum 93 mg/dL 0-130 Office Visit: follow up ob - Urinalysis protein, urine, semiquantitative (dipstick) Tr glucose, urine, semiquantitative N nitrite, urine, semiquantitative N Encounters Code Encounter Date Provider Facility CPT-52140 Level 3 Est. Patient 16:40:58 CDT Rian Ortega MD [facility] CPT-79749 Level 3 Est. Patient 13:55:16 FERRY OPERATOR Rian Ortega MD [facility] CPT-87095 Level 3 Est. Patient 10:42:52 CDT Corrina Uvaldo PÉREZ [facility] CPT-19458 Level 3 Est. Patient 11:18:30 CDT Aris Charlton MD [facility] Procedures Code Procedure Name Date Entry Date Standard Description CPT-29925 PT/INR - LAB USE ONLY 12:14:07 CDT CPT-33563 HGBA1C - LAB USE ONLY 12:14:07 CDT CPT-90605 CMP - LAB USE ONLY 12:14:07 CDT CPT-81310 CBC - LAB USE ONLY 12:14:07 CDT CPT-69564 Venipuncture Draw Fee 12:14:06 CDT CPT-J0702 Celestone 6 mg (Betamethasone) 15:04:45 FERRY OPERATOR CPT-70749 Abx/Therapy Injection 15:04:45 FERRY OPERATOR CPT-J0702 Celestone 12 mg (Betamethasone) 11:45:31 FERRY OPERATOR CPT-77462 Visit 11:39:52 FERRY OPERATOR CPT-74509Q Sono biophysical pro wo stress test-[facility] Only 11:21: 42 FERRY OPERATOR CPT-10178 Visit 16:00:50 FERRY OPERATOR CPT-23360Z Sono biophysical pro wo stress test-[facility] Only 13:12: 18 FERRY OPERATOR CPT-40755 Sono biophysical pro wo stress test 11:17:21 FERRY OPERATOR 05/21 CPT-23745 Tdap 7yrs or > 15:22:51 FERRY OPERATOR CPT-16634 Immunization Single Admin 15:22:51 FERRY OPERATOR CPT-89177 Tdap 7yrs or > 15:09:13 FERRY OPERATOR CPT-41190 Visit 14:54:16 FERRY OPERATOR CPT-18073 Fluzone Quadrivalent Intramuscular Suspension 0.5 ML 16: 58:58 CDT CPT-70299 Administration single or combination vaccine inc oral 16 :58:58 CDT CPT-40819 Fluzone Thim Free 36mo and older 14:47:39 CDT CPT-95543 Visit 14:47:39 CDT CPT-63317 Sono OB limited 10:30:07 CDT CPT-58570 Visit 10:04:44 CDT CPT-88408 Sono OB comp > 14 weeks 12:50:41 CDT CPT-15225 Visit 12:06:25 CDT CPT-94078 Visit 12:43:15 CDT CPT-13833 Visit 10:06:02 CDT CPT-82204 Spec Collection and Handling Fee 10:00:31 CDT CPT-12653 Visit 10:00:30 CDT CPT-61970 Drug Screen [place]isel 14:36:13 CDT
--- OUTSIDE RECORDS SUMMARY | 2018-08-28 06:30 | XMS REPORT | Clinical Summary ---
Author Author Admin, E Organization [facility] Address Unknown Phone Unavailable Allergies, Adverse Reactions, [...] Active Karen Jaramillo MD Nausea with vomiting Medication List Medication Instructions Start Date Stop Date Generic Name NDC Status Provider Patient Instruction ZITHROMAX 1 GM ORAL PACK Take 1 time and recheck lab in 2-3 weeks AZITHROMYCIN 65954515485 Active Carolina Mayfield LPN Active TRIAMCINOLONE ACETONIDE 0.1 % CREA Apply to affected areas TID for up to 1 week TRIAMCINOLONE ACETONIDE 80333032356 Active Aris Charlton MD Active PNV PLUS MULTIVITAMIN 27-1 MG ORAL TABS 1 daily VIT-FE FUMARATE-FA 72585595456 Active Aris Charlton MD Active FLAGYL 500 MG TAB four tabs PO x 1 METRONIDAZOLE 59767325051 No Longer Active Aris Charlton MD Active FLAGYL 500 MG TAB four tabs PO x 1 FLAGYL 500 MG TAB 052052 METRONIDAZOLE Inactive Immunizations Vaccine Administration Date Value Standard Description hepatitis B vaccine series yes hepatitis B vaccine, unspecified formulation Vital Signs Date Name Value Unit Range Description blood pressure, diastolic - 8462-4 79 mm[Hg] [...] RBCW/REFL I, CBC (IN ... - Hematology red blood cell distribution width 14.5 % 11.0-15.0 platelet count 307 THOUSAND/UL 10*3/mm3 295-801 2535/05/26 mean platelet volume 8.9 fL 7.5-11.5 Blood type A mean corpuscular hemoglobin concentration, RBC 32.5 G/DL % 32.0- 36.0 mean corpuscular hemoglobin, RBC 28.5 pg 27.0-33.0 mean corpuscular volume, RBC 87.6 fL 80.0-100.0 hematocrit, blood 38.8 % 35.0-45.0 hemoglobin, blood 12.6 g/dL 11.7-15.5 erythrocyte (RBC) count 4.43 MILLION/UL 10*6/mm3 3.80-5.10 [...] rubella antibody, serum, IgG 2.66 Lab Report: CBC W/DIFF, Comp. Metabolic Panel, Thyroid Stimulating Hormo ... - Chemistry sodium, serum 137 mmol/L 060-648 4921/08/28 potassium, serum 4.3 mmol/L 3.5-5.2 chloride, serum [...] percent of blood leukocytes 19.7 % 20.5-51.1 mean corpuscular hemoglobin concentration, RBC 34.1 G/DL % 31.8- 35.4 red blood cell distribution width 14.7 % 11.6-14.8 platelet count 325 10^3/MM^3 10*3/mm3 327-659 3292/08/28 hematocrit, blood 35.2 % 36.0-46.0 mean corpuscular volume, RBC 89 fL 80-97 mean corpuscular hemoglobin, RBC 30.5 pg 27.0-31.2 erythrocyte (RBC) count 3.94 10^6/MM^3 10*6/mm3 4.04-5.48 hemoglobin, blood 12.0 g/dL 12.0-16.0 Lab Report: Chlamydia/GC APTIMA/[id number] - Lab chlamydia DNA probe DETECTED NOT DETECTED chlamydia DNA probe NOT DETECTED NOT DETECTED Lab Report: Chlamydia/GC APTIMA/[id number] - Microbiology Neisseria gonorrhoeae DNA probe NOT [...] strip Negative Negative bilirubin, urine Negative Negative specific gravity, urine 1.020 1.000-1.030 pH, urine, semiquantitative 7.0 5.0-8.5 urobilinogen, urine, semiquantitative (dipstick) 0.2 Normal leukocyte esterase, urine, by dipstick Negative Negative nitrite, urine, semiquantitative Negative Negative urate crystals, amorphous, urine, semiquantitative Moderate None seen urine color Yellow Colorless;Lightyellow;Straw;Yellow appearance, urine Hazy Clear Lab Report: [facility] - Chemistry human chorionic gonadotropin, [...] Chemistry protein, total urine random Tr mg/dL protein, total urine random N mg/dL Office Visit: OB Visit - Urinalysis glucose, urine, semiquantitative N nitrite, urine, semiquantitative N glucose, urine, semiquantitative N nitrite, urine, semiquantitative N Encounters Code Encounter Date Provider Facility CPT-49772 Level 3 Est. Patient 10:42:52 CDT Corrina Bailon APRN [facility] CPT-42982 Level 3 Est. Patient 11:18:30 CDT Aris Charlton MD [facility] Procedures Code Procedure Name Date Entry Date Standard Description CPT-15295 Visit 12:43:15 CDT CPT-40269 Visit 10:06:02 CDT CPT-41575 Spec Collection and Handling Fee 10:00:31 CDT CPT-37297 Visit 10:00:30 CDT CPT-70584 Drug Screen Grisel 14:36:13 CDT
--- OUTSIDE RECORDS SUMMARY | 2018-08-28 06:31 | XMS REPORT | Clinical Summary ---
Author Author Admin, [facility] Organization [facility] Address Unknown Phone Unavailable Allergies, Adverse Reactions, [...] Rian Ortega MD Tobacco use disorder Electronic Resources Librarian well woman exam V72.31 Active Sasha Espitia [...] MG ORAL TABS 1 daily VIT-FE FUMARATE-FA 34389947083 No Longer Active Sasha Espitia APRN Active CHANTIX STARTING MONTH DANILO 0.5 MG X 11 & 1 MG X 42 TABS take as directed 2015 VARENICLINE TARTRATE 09838004670 No Longer Active Sasha Espitia APRN Active CHANTIX 1 MG TABS 1 twice a day to help quit smoking VARENICLINE TARTRATE 71582712058 No Longer Active Sashashante Espitia APRN Active OMEPRAZOLE 20 MG CPDR 1 tablet by mouth daily OMEPRAZOLE 44053436982 Active Sasha Omkar PÉREZ Active CARAFATE 1 GM TAB 1 tab po as needed up to 4 times per day SUCRALFATE 71060131933 Active Sashashante Espitia APRN Active FLINSTONES GUMMIES OMEGA-3 DHA ORAL CHEW 2 gummies per day PEDIATRIC MULTIPLE VIT-C-FA 57902708526 Active Sasha Omkar PÉREZ Active SM VITAMIN B12 TR 1000 MCG ORAL CR-TABS 1 tab po daily CYANOCOBALAMIN 53986849322 Active Sashashante Espitia APRN Active CLINDAMYCIN HCL 150 MG CAPS 1 four times a day for 1 week CLINDAMYCIN HCL 15253365654 No Longer Active Karen Jaramillo MD Active TRIAMCINOLONE ACETONIDE 0.1 % CREA Apply to affected areas TID for up to 1 week TRIAMCINOLONE ACETONIDE 96799304493 No Longer Active Rian Ortega MD Active ZITHROMAX 1 GM ORAL PACK Take 1 time and recheck lab in 2-3 weeks AZITHROMYCIN 59411292516 No Longer Active Rian Ortega MD Active FLAGYL 500 MG TAB four tabs PO x 1 METRONIDAZOLE 18124034968 No Longer Active Aris Charlton MD Active FLAGYL 500 MG TAB four tabs PO x 1 FLAGYL 500 MG TAB 112754 METRONIDAZOLE Inactive ZITHROMAX 1 GM ORAL PACK Take 1 time and recheck lab in 2-3 weeks ZITHROMAX 1 GM ORAL PACK 618338 AZITHROMYCIN Inactive TRIAMCINOLONE ACETONIDE 0.1 % CREA Apply to affected areas TID for up to 1 week TRIAMCINOLONE ACETONIDE 0.1 % CREA 4369514 TRIAMCINOLONE ACETONIDE Inactive CLINDAMYCIN HCL 150 MG CAPS 1 four times a day for 1 week CLINDAMYCIN HCL 150 MG CAPS 034136 CLINDAMYCIN HCL Inactive CHANTIX 1 MG TABS [...] HGBA1C - Chemistry sodium, serum 142 mmol/L 549-639 7088 carbon dioxide, venous blood 32.8 mmol/L 21.0-32.0 [...] Panel - Chemistry cholesterol, serum 165 mg/dL 186-453 5906 triglyceride, serum, fasting 124 mg/dL 30-200 HDL cholesterol, serum 47 mg/dL 32-96 LDL cholesterol, serum 93 mg/dL 0-130 Lab Report: Prothrombin Time - Coagulation prothrombin time (patient) 12.0 SECS s 11.1-13.4 international normalized ratio (INR) 1.0 1.0-3.5 Lab Report: VITAMIN B12/FOLATE, SERUM PANE, FERRITIN, VITAMIN D, 25-HYDR ... - Chemistry vitamin D 25-hydroxy, serum 32 ng/mL 30-100 Encounters Code Encounter Date Provider Facility CPT-07308 Level 4 Est. Patient 08:56:42 LABOR UTILIZATION SUPERINTENDENT Sasha Espitia [facility] CPT-64608 Level 3 Est. Patient 16:40:58 CDT Rian Ortega MD [facility] CPT-78931 Level 3 Est. Patient 13:55:16 LABOR UTILIZATION SUPERINTENDENT Rian Ortega MD [facility] CPT-14420 Level 3 Est. Patient 10:42:52 CDT Corrina Bailon [facility] CPT-00666 Level 3 Est. Patient 11:18:30 CDT Aris Charlton MD [facility] Procedures Code Procedure Name Date Entry Date Standard Description CPT-57846 Wet Mount - LAB USE ONLY 11:11:39 LABOR UTILIZATION SUPERINTENDENT CPT-43263 Lipid - LAB USE ONLY 15:05:24 LABOR UTILIZATION SUPERINTENDENT CPT-04198 PT/INR - LAB USE ONLY 12:14:07 CDT CPT-26329 HGBA1C - LAB USE ONLY 12:14:07 CDT CPT-01430 CMP - LAB USE ONLY 12:14:07 CDT CPT-19957 CBC - LAB USE ONLY 12:14:07 CDT CPT-69775 Venipuncture Draw Fee 12:14:06 CDT CPT-J0702 Celestone 6 mg (Betamethasone) 15:04:45 LABOR UTILIZATION SUPERINTENDENT CPT-14253 Abx/Therapy Injection 15:04:45 LABOR UTILIZATION SUPERINTENDENT CPT-J0702 Celestone 12 mg (Betamethasone) 11:45:31 LABOR UTILIZATION SUPERINTENDENT CPT-30938 Visit 11:39:52 LABOR UTILIZATION SUPERINTENDENT CPT-42063K Sono biophysical pro wo stress test-[facility] 11:21: 42 LABOR UTILIZATION SUPERINTENDENT CPT-13982 Visit 16:00:50 LABOR UTILIZATION SUPERINTENDENT CPT-69822D Sono biophysical pro wo stress test-[facility] 13:12: 18 LABOR UTILIZATION SUPERINTENDENT CPT-75041 Sono biophysical pro wo stress test 11:17:21 LABOR UTILIZATION SUPERINTENDENT 05/21 CPT-51220 Tdap 7yrs or > 15:22:51 LABOR UTILIZATION SUPERINTENDENT CPT-35338 Immunization Single Admin 15:22:51 LABOR UTILIZATION SUPERINTENDENT CPT-42863 Tdap 7yrs or > 15:09:13 LABOR UTILIZATION SUPERINTENDENT CPT-83936 Visit 14:54:16 LABOR UTILIZATION SUPERINTENDENT CPT-85705 Fluzone Quadrivalent Intramuscular Suspension 0.5 ML 16: 58:58 CDT CPT-65013 Administration single or combination vaccine inc oral 16 :58:58 CDT CPT-57699 Fluzone Thim Free 36mo and older 14:47:39 CDT CPT-81000 Visit 14:47:39 CDT CPT-57542 Sono OB limited 10:30:07 CDT CPT-27751 Visit 10:04:44 CDT CPT-63227 Sono OB comp > 14 weeks 12:50:41 CDT CPT-42556 Visit 12:06:25 CDT CPT-73787 Visit 12:43:15 CDT CPT-14354 Visit 10:06:02 CDT CPT-63710 Spec Collection and Handling Fee 10:00:31 CDT CPT-48709 Visit 10:00:30 CDT CPT-78733 Drug Screen [place] 14:36:13 CDT
--- OUTSIDE RECORDS SUMMARY | 2018-08-28 06:32 | XMS REPORT | Clinical Summary ---
Author Author Admin, [facility] Organization [facility] Address Unknown Phone Unavailable Allergies, [...] TAB four tabs PO x 1 METRONIDAZOLE 39794433214 Active Karen Jaramillo MD Active Diagnostic Results Date Name Value Unit Range Description Lab Report: HGBA1C - Chemistry hemoglobin A1C, blood, as % of total hemoglobin 5.3 % 4.3-6.0 Procedures Code Procedure Name Date Entry Date Standard Description CPT-78227 Spec Collection and Handling Fee 10:00:31 CDT CPT-00221 Visit 10:00:30 CDT CPT-49595 Drug Screen [place] 14:36:13 CDT
--- OUTSIDE RECORDS SUMMARY | 2018-08-28 06:32 | XMS REPORT | Clinical Summary ---
Author Author Admin, [facility] Organization [facility] Address Unknown [...] obesity Obstructive sleep apnea 327.23 Active Rian Orteag MD Obstructive sleep apnea (adult) (pediatric) Cigarette smoker 305.1 Active Rian Ortega MD Tobacco use disorder Health Care Recruiter well woman exam V72.31 Active Sasha Espitia DOCUMENT SCANNER Routine gynecological examination Bariatric operative procedure V45.86 Active Mariely King RMA Bariatric surgery status Health examination of defined subpopulations ICD-V70.5 Inactive Karen Jaramillo MD Supervision high risk , third trimester ICD-V23.9 10/31 Inactive Rian Ortega MD Advanced maternal age ICD-659.60 Inactive Rian Ortega MD Trichomonal vaginitis ICD-131.01 Inactive Rian Ortega MD Insect bite ICD-919.4 Inactive Karen Jaramillo MD Sexual activity, high risk ICD-V69.2 Inactive Rian Ortgea MD Diarrhea ICD-787.91 Inactive Rian Ortega MD [...] MG ORAL TABS 1 daily VIT-FE FUMARATE-FA 73100645175 No Longer Active Sasha Espitia APRN Active CHANTIX STARTING MONTH DANILO 0.5 MG X 11 & 1 MG X 42 TABS take as directed 2015 VARENICLINE TARTRATE 62926783569 No Longer Active Sasha Espitia APRN Active CHANTIX 1 MG TABS 1 twice a day to help quit smoking VARENICLINE TARTRATE 68673661254 No Longer Active Sasha Omkar DOCUMENT SCANNER Active OMEPRAZOLE 20 MG CPDR 1 tablet by mouth daily OMEPRAZOLE 83878106236 Active Sasha Espitia DOCUMENT SCANNER Active CARAFATE 1 GM TAB 1 tab po as needed up to 4 times per day SUCRALFATE 01201301272 Active Sasha Espitia DOCUMENT SCANNER Active FLINSTONES GUMMIES OMEGA-3 DHA ORAL CHEW 2 gummies per day PEDIATRIC MULTIPLE VIT-C-FA 95566222331 Active Sasha Espitia DOCUMENT SCANNER Active SM VITAMIN B12 TR 1000 MCG ORAL CR-TABS 1 tab po daily CYANOCOBALAMIN 43948608114 Active Sasha Espitia BETO Active CLINDAMYCIN HCL 150 MG CAPS 1 four times a day for 1 week CLINDAMYCIN HCL 80740797505 No Longer Active Karen Jaramillo MD Active TRIAMCINOLONE ACETONIDE 0.1 % CREA Apply to affected areas TID for up to 1 week TRIAMCINOLONE ACETONIDE 29163615042 No Longer Active Rian Ortega MD Active ZITHROMAX 1 GM ORAL PACK Take 1 time and recheck lab in 2-3 weeks AZITHROMYCIN 95204396783 No Longer Active Rian Ortega MD Active FLAGYL 500 MG TAB four tabs PO x 1 METRONIDAZOLE 03688888923 No Longer Active Aris Charlton MD Active FLAGYL 500 MG TAB four tabs PO x 1 FLAGYL 500 MG TAB 324396 METRONIDAZOLE Inactive ZITHROMAX 1 GM ORAL PACK Take 1 time and recheck lab in 2-3 weeks ZITHROMAX 1 GM ORAL PACK 545480 AZITHROMYCIN Inactive TRIAMCINOLONE ACETONIDE 0.1 % CREA Apply to affected areas TID for up to 1 week TRIAMCINOLONE ACETONIDE 0.1 % CREA 0518209 TRIAMCINOLONE ACETONIDE Inactive CLINDAMYCIN HCL 150 MG CAPS 1 four times a day for 1 week CLINDAMYCIN HCL 150 MG CAPS 554462 CLINDAMYCIN HCL Inactive CHANTIX 1 MG TABS [...] HGBA1C - Chemistry sodium, serum 142 mmol/L [phone] carbon dioxide, venous blood 32.8 mmol/L 21.0-32.0 [...] Panel - Chemistry cholesterol, serum 165 mg/dL [phone] triglyceride, serum, fasting 124 mg/dL 30-200 HDL [...] N Encounters Code Encounter Date Provider Facility CPT-99983 Level 3 Est. Patient 16:40:58 CDT Rian Ortega MD [facility] CPT-58009 Level 3 Est. Patient 13:55:16 SERVICE PARTS DRIVER Rian Ortega MD [facility] CPT-33861 Level 3 Est. Patient 10:42:52 CDT Corrina Bailon APRN [facility] CPT-50409 Level 3 Est. Patient 11:18:30 CDT Aris Charlton MD [facility] Procedures Code Procedure Name Date Entry Date Standard Description CPT-50049 Lipid - LAB USE ONLY 15:05:24 SERVICE PARTS DRIVER CPT-87450 PT/INR - LAB USE ONLY 12:14:07 CDT CPT-45279 HGBA1C - LAB USE ONLY 12:14:07 CDT CPT-34914 CMP - LAB USE ONLY 12:14:07 CDT CPT-46703 CBC - LAB USE ONLY 12:14:07 CDT CPT-02577 Venipuncture Draw Fee 12:14:06 CDT CPT-J0702 Celestone 6 mg (Betamethasone) 15:04:45 SERVICE PARTS DRIVER CPT-83542 Abx/Therapy Injection 15:04:45 SERVICE PARTS DRIVER CPT-J0702 Celestone 12 mg (Betamethasone) 11:45:31 SERVICE PARTS DRIVER CPT-88223 Visit 11:39:52 SERVICE PARTS DRIVER CPT-92861L Sono biophysical pro wo stress test-[place] Only 11:21: 42 SERVICE PARTS DRIVER CPT-24572 Visit 16:00:50 SERVICE PARTS DRIVER CPT-58037L Sono biophysical pro wo stress test-[facility] 13:12: 18 SERVICE PARTS DRIVER CPT-63540 Sono biophysical pro wo stress test 11:17:21 SERVICE PARTS DRIVER 05/21 CPT-21303 Tdap 7yrs or > 15:22:51 SERVICE PARTS DRIVER CPT-46542 Immunization Single Admin 15:22:51 SERVICE PARTS DRIVER CPT-17359 Tdap 7yrs or > 15:09:13 SERVICE PARTS DRIVER CPT-52855 Visit 14:54:16 SERVICE PARTS DRIVER CPT-34433 Fluzone Quadrivalent Intramuscular Suspension 0.5 ML 16: 58:58 CDT CPT-46581 Administration single or combination vaccine inc oral 16 :58:58 CDT CPT-49787 Fluzone Thim Free 36mo and older 14:47:39 CDT CPT-64228 Visit 14:47:39 CDT CPT-13762 Sono OB limited 10:30:07 CDT CPT-37504 Visit 10:04:44 CDT CPT-95568 Sono OB comp > 14 weeks 12:50:41 CDT CPT-25912 Visit 12:06:25 CDT CPT-97836 Visit 12:43:15 CDT CPT-82567 Visit 10:06:02 CDT CPT-74594 Spec Collection and Handling Fee 10:00:31 CDT CPT-66813 Visit 10:00:30 CDT CPT-12153 Drug Screen Grisel 14:36:13 CDT
--- OUTSIDE RECORDS SUMMARY | 2018-08-28 06:32 | XMS REPORT | Clinical Summary ---
Author Author Admin, [facility] Organization [facility] [...] Active Rian Ortega MD Tobacco use disorder Quality Assurance Supervisor Trim well woman exam V72.31 Active Sasha Espitia LASER PRINT OPERATOR Routine gynecological examination Bariatric operative procedure V45.86 [...] MG ORAL TABS 1 daily VIT-FE FUMARATE-FA 82683617116 No Longer Active Sasha Espitia APRN Active CHANTIX STARTING MONTH DANILO 0.5 MG X 11 & 1 MG X 42 TABS take as directed 2015 VARENICLINE TARTRATE 46718984997 No Longer Active Sasha Espitia APRN Active CHANTIX 1 MG TABS 1 twice a day to help quit smoking VARENICLINE TARTRATE 69928063446 No Longer Active Sasha Omkar LASER PRINT OPERATOR Active OMEPRAZOLE 20 MG CPDR 1 tablet by mouth daily OMEPRAZOLE 85172550234 Active Sasha Espitia LASER PRINT OPERATOR Active CARAFATE 1 GM TAB 1 tab po as needed up to 4 times per day SUCRALFATE 04102542179 Active Sasha Espitia LASER PRINT OPERATOR Active FLINSTONES GUMMIES OMEGA-3 DHA ORAL CHEW 2 gummies per day PEDIATRIC MULTIPLE VIT-C-FA 22584634916 Active Sasha Espitia LASER PRINT OPERATOR Active SM VITAMIN B12 TR 1000 MCG ORAL CR-TABS 1 tab po daily CYANOCOBALAMIN 89145425136 Active Sasha Espitia BETO Active CLINDAMYCIN HCL 150 MG CAPS 1 four times a day for 1 week CLINDAMYCIN HCL 35297717457 No Longer Active Karen Jaramillo MD Active TRIAMCINOLONE ACETONIDE 0.1 % CREA Apply to affected areas TID for up to 1 week TRIAMCINOLONE ACETONIDE 34419903888 No Longer Active Rian Ortega MD Active ZITHROMAX 1 GM ORAL PACK Take 1 time and recheck lab in 2-3 weeks AZITHROMYCIN 09398012935 No Longer Active Rian Ortega MD Active FLAGYL 500 MG TAB four tabs PO x 1 METRONIDAZOLE 18359824906 No Longer Active Aris Charlton MD Active FLAGYL 500 MG TAB four tabs PO x 1 FLAGYL 500 MG TAB 881967 METRONIDAZOLE Inactive ZITHROMAX 1 GM ORAL PACK Take 1 time and recheck lab in 2-3 weeks ZITHROMAX 1 GM ORAL PACK 879406 AZITHROMYCIN Inactive TRIAMCINOLONE ACETONIDE 0.1 % CREA Apply to affected areas TID for up to 1 week TRIAMCINOLONE ACETONIDE 0.1 % CREA 4620679 TRIAMCINOLONE ACETONIDE Inactive CLINDAMYCIN HCL 150 MG CAPS 1 four times a day for 1 week CLINDAMYCIN HCL 150 MG CAPS 285604 CLINDAMYCIN HCL Inactive CHANTIX 1 MG TABS [...] Free Thyroxine (L) - Hematology mean corpuscular hemoglobin, RBC 31.0 pg 27.0-31.2 mean corpuscular hemoglobin concentration, RBC 33.9 G/DL % 31.8- 35.4 red blood cell distribution width 13.7 % 11.6-14.8 platelet count 302 10^3/MM^3 10*3/mm3 860-637 5081/11/18 mean corpuscular volume, RBC 92 fL 80-97 hematocrit, blood 32.9 % 36.0-46.0 hemoglobin, blood 11.2 g/dL 12.0-16.0 erythrocyte (RBC) count 3.60 10^6/MM^3 10*6/mm3 4.04-5.48 leukocyte count, blood 11.7 10^3/MM^3 10*3/mm3 4.6-10.2 Lab Report: Lipid Panel - Chemistry cholesterol, serum 165 mg/dL [phone] triglyceride, serum, fasting 124 mg/dL 30-200 HDL cholesterol, serum 47 mg/dL 32-96 LDL cholesterol, serum 93 mg/dL 0-130 Office Visit: follow up ob - Urinalysis protein, urine, semiquantitative (dipstick) Tr glucose, urine, semiquantitative N nitrite, urine, semiquantitative N Encounters Code Encounter Date Provider Facility CPT-91336 Level 3 Est. Patient 16:40:58 CDT Rian Ortega MD [facility] CPT-28193 Level 3 Est. Patient 13:55:16 FIRE HYDRANT MECHANIC Rian Ortega MD [facility] CPT-00898 Level 3 Est. Patient 10:42:52 CDT Corrina Bailon APRN [facility] CPT-41494 Level 3 Est. Patient 11:18:30 CDT Aris Charlton MD [facility] Procedures Code Procedure Name Date Entry Date Standard Description CPT-08597 PT/INR - LAB USE ONLY 12:14:07 CDT CPT-09277 HGBA1C - LAB USE ONLY 12:14:07 CDT CPT-74542 CMP - LAB USE ONLY 12:14:07 CDT CPT-74886 CBC - LAB USE ONLY 12:14:07 CDT CPT-58503 Venipuncture Draw Fee 12:14:06 CDT CPT-J0702 Celestone 6 mg (Betamethasone) 15:04:45 FIRE HYDRANT MECHANIC CPT-35286 Abx/Therapy Injection 15:04:45 FIRE HYDRANT MECHANIC CPT-J0702 Celestone 12 mg (Betamethasone) 11:45:31 FIRE HYDRANT MECHANIC CPT-07520 Visit 11:39:52 FIRE HYDRANT MECHANIC CPT-96192G Sono biophysical pro wo stress test-[place] Only 11:21: 42 FIRE HYDRANT MECHANIC CPT-38069 Visit 16:00:50 FIRE HYDRANT MECHANIC CPT-14486L Sono biophysical pro wo stress test-[place] Only 13:12: 18 FIRE HYDRANT MECHANIC CPT-55748 Sono biophysical pro wo stress test 11:17:21 FIRE HYDRANT MECHANIC 05/21 CPT-48289 Tdap 7yrs or > 15:22:51 FIRE HYDRANT MECHANIC CPT-06206 Immunization Single Admin 15:22:51 FIRE HYDRANT MECHANIC CPT-63584 Tdap 7yrs or > 15:09:13 FIRE HYDRANT MECHANIC CPT-44062 Visit 14:54:16 FIRE HYDRANT MECHANIC CPT-83236 Fluzone Quadrivalent Intramuscular Suspension 0.5 ML 16: 58:58 CDT CPT-43652 Administration single or combination vaccine inc oral 16 :58:58 CDT CPT-96955 Fluzone Thim Free 36mo and older 14:47:39 CDT CPT-06195 Visit 14:47:39 CDT CPT-14105 Sono OB limited 10:30:07 CDT CPT-79518 Visit 10:04:44 CDT CPT-53356 Sono OB comp > 14 weeks 12:50:41 CDT CPT-22507 Visit 12:06:25 CDT CPT-33459 Visit 12:43:15 CDT CPT-28162 Visit 10:06:02 CDT CPT-32791 Spec Collection and Handling Fee 10:00:31 CDT CPT-74554 Visit 10:00:30 CDT CPT-55926 Drug Screen [place]isel 14:36:13 CDT
--- OUTSIDE RECORDS SUMMARY | 2018-08-28 06:33 | XMS REPORT | Clinical Summary ---
Author Author Admin, E Organization [facility] [employer] Address Unknown Phone Unavailable Allergies, Adverse Reactions, [...] and recheck lab in 2-3 weeks AZITHROMYCIN 91454176666 Active Carolina Mayfield LPN Active TRIAMCINOLONE ACETONIDE 0.1 % CREA Apply to affected areas TID for up to 1 week TRIAMCINOLONE ACETONIDE 71519115825 Active Aris Charlton MD Active PNV PLUS MULTIVITAMIN 27-1 MG ORAL TABS 1 daily VIT-FE FUMARATE-FA 49436053740 Active Aris Charlton MD Active FLAGYL 500 MG TAB four tabs PO x 1 METRONIDAZOLE 04020756763 No Longer Active Aris Charlton MD Active FLAGYL 500 MG TAB four tabs PO x 1 FLAGYL 500 MG TAB 619721 METRONIDAZOLE Inactive Immunizations Vaccine Administration Date Value [...] % 11.0-15.0 platelet count 307 THOUSAND/UL 10*3/mm3 807-822 6879/05/26 mean platelet volume 8.9 fL 7.5-11.5 Blood [...] ... - Chemistry sodium, serum 137 mmol/L 651-029 9878/08/28 potassium, serum 4.3 mmol/L 3.5-5.2 chloride, serum [...] count 325 10^3/MM^3 10*3/mm3 142-424 Lab Report: Chlamydia/GC APTIMA/29198 - Lab chlamydia DNA probe NOT DETECTED NOT DETECTED chlamydia DNA probe DETECTED NOT DETECTED Lab Report: Chlamydia/GC APTIMA/17049 - Microbiology Neisseria gonorrhoeae DNA probe NOT DETECTED NOT DETECTED Neisseria gonorrhoeae DNA probe NOT DETECTED NOT DETECTED Lab Report: Chlamydia/GC APTIMA/24745, HEPATITIS B S AG W/, HIV-1/2 Agn/ ... - Chemistry hepatitis B surface antigen NON-REACTIVE NON-REACTIVE Lab Report: Chlamydia/GC APTIMA/62661, HEPATITIS B S AG W/, HIV-1/2 Agn/ ... - Lab chlamydia DNA probe NOT DETECTED NOT DETECTED Lab Report: Chlamydia/GC APTIMA/45588, HEPATITIS B S AG W/, HIV-1/2 Agn/ ... - Microbiology Neisseria gonorrhoeae DNA probe NOT DETECTED NOT DETECTED Lab Report: Chlamydia/GC APTIMA/76408, HEPATITIS B S AG W/, HIV-1/2 Agn/ ... - Serology rapid plasma reagin antibody titer NON-REACTIVE NON-REACTIVE Lab Report: HGBA1C - Chemistry hemoglobin A1C, blood, as % of total hemoglobin 5.3 % 4.3-6.0 Lab Report: Thyroid Stimulating Hormone (L), Quant CG - Chemistry TSH 2.31 m[iU]/mL 0.36-3.74 Lab [...] pH, urine, semiquantitative 7.0 5.0-8.5 Lab Report: [facility] - Chemistry human chorionic gonadotropin, urine, qualitative [...] N Encounters Code Encounter Date Provider Facility CPT-88163 Level 3 Est. Patient 10:42:52 CDT Corrina Bailon APRN [facility] CPT-40051 Level 3 Est. Patient 11:18:30 CDT Aris Charlton MD [facility] Procedures Code Procedure Name Date Entry Date Standard Description CPT-44754 Visit 12:43:15 CDT CPT-22182 Visit 10:06:02 CDT CPT-92697 Spec Collection and Handling Fee 10:00:31 CDT CPT-86273 Visit 10:00:30 CDT CPT-30144 Drug Screen Grisel 14:36:13 CDT
--- OUTSIDE RECORDS SUMMARY | 2018-08-28 06:33 | XMS REPORT | Clinical Summary ---
Author Author Admin, E Organization [facility] [employer] Address Unknown Phone Unavailable Allergies, Adverse Reactions, [...] Active Rian Ortega MD Tobacco use disorder Heritage Consultant well woman exam V72.31 Active Sasha Espitia APRN Routine gynecological examination Bariatric operative procedure V45.86 Active Mariely Farolanda RMRy Bariatric surgery status Physical examination V70.0 Active Sasha Espitia APRN Routine general medical examination at a health care facility Dysuria 788.1 Active Nereyda Rodriguez CLINICAL SYSTEMS EDUCATOR Dysuria Urinary tract infection 599.0 Active Nereyda Rodriguez APRN Urinary tract infection, site not specified Bronchitis 490 Active Carline Best CLINICAL SYSTEMS EDUCATOR Bronchitis, not specified as acute or chronic [...] Status Provider Patient Instruction GUAIFENESIN 600 MG [id number] 1 twice a day as needed for congestion GUAIFENESIN 33708352997 Active Carline Best APRN Active SYMBICORT 160-4.5 MCG/ACT AERO 2 puff BID for 10 days BUDESONIDE-FORMOTEROL FUMARATE 11377591405 Active Carline Best APRN Active AZITHROMYCIN 250 MG TABS 2 po qd x 1 day, then 1 po qd x 4 days AZITHROMYCIN 48579117707 Active Carline Best APRN Active CIPRO 500 MG TAB 1 tablet by mouth twice daily CIPROFLOXACIN HCL 37641142778 No Longer Active Tariq Marrero MD Active AZO TABS TABS 2 tabs qd PHENAZOPYRIDINE HCL TABS 14428768812 No Longer Active Tariq Marrero MD Active CIPROFLOXACIN HCL 250 MG ORAL TABS 1 twice a day for bladder infection 07/24 CIPROFLOXACIN HCL 89853282665 No Longer Active Tariq Marrero MD Active SM VITAMIN B12 TR 1000 MCG ORAL CR-TABS 1 tab po daily CYANOCOBALAMIN 50372802506 No Longer Active Nereyda Rodriguez APRN Active CARAFATE 1 GM TAB 1 tab po as needed up to 4 times per day SUCRALFATE 67596084720 No Longer Active Nereyda Rodriguez APRN Active PNV PLUS MULTIVITAMIN 27-1 MG ORAL TABS 1 daily VIT-FE FUMARATE-FA 33877000619 No Longer Active Sasha Espitia APRN Active CHANTIX STARTING MONTH DANILO 0.5 MG X 11 & 1 MG X 42 TABS take as directed 2015 VARENICLINE TARTRATE 32843608155 No Longer Active Sasha Espitia APRN Active CHANTIX 1 MG TABS 1 twice a day to help quit smoking VARENICLINE TARTRATE 19492778875 No Longer Active Sasha Espitia APRN Active OMEPRAZOLE 20 MG CPDR 1 tablet by mouth daily OMEPRAZOLE 72324661214 Active Sasha Espitia APRN Active FLINSTONES GUMMIES OMEGA-3 DHA ORAL CHEW 2 gummies per day PEDIATRIC MULTIPLE VIT-C-FA 89815581956 Active Sasha Espitia APRN Active CLINDAMYCIN HCL 150 MG CAPS 1 four times a day for 1 week CLINDAMYCIN HCL 65211169983 No Longer Active Karen Jaramillo MD Active TRIAMCINOLONE ACETONIDE 0.1 % CREA Apply to affected areas TID for up to 1 week TRIAMCINOLONE ACETONIDE 61003226562 No Longer Active Rian Ortega MD Active ZITHROMAX 1 GM ORAL PACK Take 1 time and recheck lab in 2-3 weeks AZITHROMYCIN 56724218502 No Longer Active Rian Ortega MD Active FLAGYL 500 MG TAB four tabs PO x 1 METRONIDAZOLE 86200502924 No Longer Active Aris Charlton MD Active FLAGYL 500 MG TAB four tabs PO x 1 FLAGYL 500 MG TAB 815973 METRONIDAZOLE Inactive ZITHROMAX 1 GM ORAL PACK Take 1 time and recheck lab in 2-3 weeks ZITHROMAX 1 GM ORAL PACK 907240 AZITHROMYCIN Inactive TRIAMCINOLONE ACETONIDE 0.1 % CREA Apply to affected areas TID for up to 1 week TRIAMCINOLONE ACETONIDE 0.1 % CREA 7156117 TRIAMCINOLONE ACETONIDE Inactive CLINDAMYCIN HCL 150 MG CAPS 1 four times a day for 1 week CLINDAMYCIN HCL 150 MG CAPS 691575 CLINDAMYCIN HCL Inactive CHANTIX 1 MG TABS [...] per day 06/27 CARAFATE 1 GM TAB 945039 SUCRALFATE Inactive SM VITAMIN B12 TR 1000 MCG ORAL CR-TABS 1 tab po daily SM VITAMIN B12 TR 1000 MCG ORAL CR-TABS CYANOCOBALAMIN Inactive CIPROFLOXACIN HCL 250 MG ORAL TABS 1 twice a day for bladder infection 07/24 CIPROFLOXACIN HCL 250 MG ORAL TABS 351995 CIPROFLOXACIN HCL Inactive AZO TABS TABS 2 tabs qd AZO TABS TABS PHENAZOPYRIDINE HCL TABS Inactive CIPRO 500 MG TAB 1 tablet by mouth twice daily CIPRO 500 MG TAB 897128 CIPROFLOXACIN HCL Inactive Immunizations Vaccine Administration Date [...] Description Lab Report: CBC, Comp. Metabolic Panel, [facility] - Chemistry sodium, serum 142 mmol/L [phone] carbon dioxide, venous blood 32.8 mmol/L 21.0-32.0 [...] 4.3-6.0 Lab Report: CBC, Comp. Metabolic Panel, BA1C - Hematology leukocyte count, blood 6.0 10^3/MM^3 [...] Panel - Chemistry cholesterol, serum 165 mg/dL 212-487 8074 triglyceride, serum, fasting 124 mg/dL 30-200 HDL [...] 30-100 Encounters Code Encounter Date Provider Facility CPT-51401 Level 3 Est. Patient 11:17:51 CDT Carline Best APRN [facility] CPT-50402 Level 3 Est. Patient 15:43:38 CDT Tariq Marrero MD [facility] CPT-61132 Level 3 Est. Patient 11:16:27 TAPPER BIT Nereyda Michael [facility] CPT-51026 Level 4 Est. Patient 08:56:42 TAPPER BIT Sasha Espitia [facility] CPT-82335 Level 3 Est. Patient 16:40:58 CDT Rian Ortega MD [facility] CPT-85202 Level 3 Est. Patient 13:55:16 TAPPER BIT Rian Ortega MD [facility] CPT-80360 Level 3 Est. Patient 10:42:52 CDT [facility] CPT-89654 Level 3 Est. Patient 11:18:30 CDT Aris Charlton MD [facility] Procedures Code Procedure Name Date Entry Date Standard Description CPT-13858 UA w micro - LAB USE ONLY 13:09:18 TAPPER BIT CPT-87474 Urine Culture - LAB USE ONLY 13:09:18 TAPPER BIT CPT-29449 Wet Mount - LAB USE ONLY 11:11:39 TAPPER BIT CPT-55228 Lipid - LAB USE ONLY 15:05:24 TAPPER BIT CPT-63617 PT/INR - LAB USE ONLY 12:14:07 CDT CPT-95910 HGBA1C - LAB USE ONLY 12:14:07 CDT CPT-30075 CMP - LAB USE ONLY 12:14:07 CDT CPT-12572 CBC - LAB USE ONLY 12:14:07 CDT CPT-94279 Venipuncture Draw Fee 12:14:06 CDT CPT-J0702 Celestone 6 mg (Betamethasone) 15:04:45 TAPPER BIT CPT-04835 Abx/Therapy Injection 15:04:45 TAPPER BIT CPT-J0702 Celestone 12 mg (Betamethasone) 11:45:31 TAPPER BIT CPT-63777 Visit 11:39:52 TAPPER BIT CPT-37299Z Sono biophysical pro wo stress test-[place] Only 11:21: 42 TAPPER BIT CPT-29253 Visit 16:00:50 TAPPER BIT CPT-96694T Sono biophysical pro wo stress test-[facility] 13:12: 18 TAPPER BIT CPT-80146 Sono biophysical pro wo stress test 11:17:21 TAPPER BIT 05/21 CPT-90723 Tdap 7yrs or > 15:22:51 TAPPER BIT CPT-33809 Immunization Single Admin 15:22:51 TAPPER BIT CPT-95349 Tdap 7yrs or > 15:09:13 TAPPER BIT CPT-79141 Visit 14:54:16 TAPPER BIT CPT-06439 Fluzone Quadrivalent Intramuscular Suspension 0.5 ML 16: 58:58 CDT CPT-76162 Administration single or combination vaccine inc oral 16 :58:58 CDT CPT-02635 Fluzone Thim Free 36mo and older 14:47:39 CDT CPT-85099 Visit 14:47:39 CDT CPT-84832 Sono OB limited 10:30:07 CDT CPT-60187 Visit 10:04:44 CDT CPT-46634 Sono OB comp > 14 weeks 12:50:41 CDT CPT-74110 Visit 12:06:25 CDT CPT-43458 Visit 12:43:15 CDT CPT-90093 Visit 10:06:02 CDT CPT-23922 Spec Collection and Handling Fee 10:00:31 CDT CPT-98666 Visit 10:00:30 CDT CPT-68178 Drug Screen [place]isel 14:36:13 CDT
--- OUTSIDE RECORDS SUMMARY | 2018-08-28 06:33 | XMS REPORT | Clinical Summary ---
Author Author Admin, [facility] Organization [facility] Address Unknown Phone Unavailable Allergies, [...] Active Rian Ortega MD Tobacco use disorder Residential Field Manager well woman exam V72.31 Active Sasha [...] day for bladder infection 07/24 CIPROFLOXACIN HCL 55973845721 Active Nereyda Rodriguez APRN Active AZO TABS TABS 2 tabs qd PHENAZOPYRIDINE HCL TABS 90596153892 Active Nereyda Rodriguez APRN Active SM VITAMIN B12 TR 1000 MCG ORAL CR-TABS 1 tab po daily CYANOCOBALAMIN 05961543042 No Longer Active Nereyda Rodriguez APRN Active CARAFATE 1 GM TAB 1 tab po as needed up to 4 times per day SUCRALFATE 85855247436 No Longer Active Nereyda Rodriguez APRN Active PNV PLUS MULTIVITAMIN 27-1 MG ORAL TABS 1 daily VIT-FE FUMARATE-FA 29539844435 No Longer Active Sasha Espitia APRN Active CHANTIX STARTING MONTH DANILO 0.5 MG X 11 & 1 MG X 42 TABS take as directed 2015 VARENICLINE TARTRATE 52069910293 No Longer Active Sasha Espitia APRN Active CHANTIX 1 MG TABS 1 twice a day to help quit smoking VARENICLINE TARTRATE 77246560660 No Longer Active Sasha Espitia APRN Active OMEPRAZOLE 20 MG CPDR 1 tablet by mouth daily OMEPRAZOLE 00782756073 Active Sasha Espitia APRN Active FLINSTONES GUMMIES OMEGA-3 DHA ORAL CHEW 2 gummies per day PEDIATRIC MULTIPLE VIT-C-FA 91312135996 Active Sasha Espitia APRN Active CLINDAMYCIN HCL 150 MG CAPS 1 four times a day for 1 week CLINDAMYCIN HCL 39525122566 No Longer Active Karen Jaramillo MD Active TRIAMCINOLONE ACETONIDE 0.1 % CREA Apply to affected areas TID for up to 1 week TRIAMCINOLONE ACETONIDE 48097032386 No Longer Active Rian Ortega MD Active ZITHROMAX 1 GM ORAL PACK Take 1 time and recheck lab in 2-3 weeks AZITHROMYCIN 40819133311 No Longer Active Rian Ortega MD Active FLAGYL 500 MG TAB four tabs PO x 1 METRONIDAZOLE 70005167640 No Longer Active Aris Charlton MD Active FLAGYL 500 MG TAB four tabs PO x 1 FLAGYL 500 MG TAB 898953 METRONIDAZOLE Inactive ZITHROMAX 1 GM ORAL PACK Take 1 time and recheck lab in 2-3 weeks ZITHROMAX 1 GM ORAL PACK 583784 AZITHROMYCIN Inactive TRIAMCINOLONE ACETONIDE 0.1 % CREA Apply to affected areas TID for up to 1 week TRIAMCINOLONE ACETONIDE 0.1 % CREA 1660640 TRIAMCINOLONE ACETONIDE Inactive CLINDAMYCIN HCL 150 MG CAPS 1 four times a day for 1 week CLINDAMYCIN HCL 150 MG CAPS 340028 CLINDAMYCIN HCL Inactive CHANTIX 1 MG TABS [...] per day 06/27 CARAFATE 1 GM TAB 328623 SUCRALFATE Inactive SM VITAMIN B12 TR 1000 [...] HGBA1C - Chemistry sodium, serum 142 mmol/L [phone] carbon dioxide, venous blood 32.8 mmol/L 21.0-32.0 [...] Panel - Chemistry cholesterol, serum 165 mg/dL 306-254 3439 triglyceride, serum, fasting 124 mg/dL 30-200 HDL [...] 30-100 Encounters Code Encounter Date Provider Facility CPT-76089 Level 3 Est. Patient 11:16:27 VISUAL DESIGNER Nereyda Rodriguez [facility] CPT-50822 Level 4 Est. Patient 08:56:42 VISUAL DESIGNER Sasha Espitia [facility] CPT-01903 Level 3 Est. Patient 16:40:58 CDT Rian Ortega MD [facility] CPT-60453 Level 3 Est. Patient 13:55:16 VISUAL DESIGNER Rian Ortega MD [facility] CPT-77498 Level 3 Est. Patient 10:42:52 CDT Corrina [facility] CPT-12841 Level 3 Est. Patient 11:18:30 CDT Aris Charlton MD [facility] Procedures Code Procedure Name Date Entry Date Standard Description CPT-04757 UA w micro - LAB USE ONLY 13:09:18 VISUAL DESIGNER CPT-75035 Urine Culture - LAB USE ONLY 13:09:18 VISUAL DESIGNER CPT-13452 Wet Mount - LAB USE ONLY 11:11:39 VISUAL DESIGNER CPT-58954 Lipid - LAB USE ONLY 15:05:24 VISUAL DESIGNER CPT-87409 PT/INR - LAB USE ONLY 12:14:07 CDT CPT-30482 HGBA1C - LAB USE ONLY 12:14:07 CDT CPT-37008 CMP - LAB USE ONLY 12:14:07 CDT CPT-22058 CBC - LAB USE ONLY 12:14:07 CDT CPT-77718 Venipuncture Draw Fee 12:14:06 CDT CPT-J0702 Celestone 6 mg (Betamethasone) 15:04:45 VISUAL DESIGNER CPT-57258 Abx/Therapy Injection 15:04:45 VISUAL DESIGNER CPT-J0702 Celestone 12 mg (Betamethasone) 11:45:31 VISUAL DESIGNER CPT-34792 Visit 11:39:52 VISUAL DESIGNER CPT-23035K Sono biophysical pro wo stress test-[facility] 11:21: 42 VISUAL DESIGNER CPT-96466 Visit 16:00:50 VISUAL DESIGNER CPT-60063E Sono biophysical pro wo stress test-[facility] 13:12: 18 VISUAL DESIGNER CPT-61996 Sono biophysical pro wo stress test 11:17:21 VISUAL DESIGNER 05/21 CPT-84438 Tdap 7yrs or > 15:22:51 VISUAL DESIGNER CPT-68452 Immunization Single Admin 15:22:51 VISUAL DESIGNER CPT-66689 Tdap 7yrs or > 15:09:13 VISUAL DESIGNER CPT-84480 Visit 14:54:16 VISUAL DESIGNER CPT-99909 Fluzone Quadrivalent Intramuscular Suspension 0.5 ML 16: 58:58 CDT CPT-13654 Administration single or combination vaccine inc oral 16 :58:58 CDT CPT-88200 Fluzone Thim Free 36mo and older 14:47:39 CDT CPT-22792 Visit 14:47:39 CDT CPT-36930 Sono OB limited 10:30:07 CDT CPT-18444 Visit 10:04:44 CDT CPT-43729 Sono OB comp > 14 weeks 12:50:41 CDT CPT-58268 Visit 12:06:25 CDT CPT-98339 Visit 12:43:15 CDT CPT-37150 Visit 10:06:02 CDT CPT-25724 Spec Collection and Handling Fee 10:00:31 CDT CPT-49620 Visit 10:00:30 CDT CPT-12269 Drug Screen Grisel 14:36:13 CDT
--- OUTSIDE RECORDS SUMMARY | 2018-08-28 06:34 | XMS REPORT | Clinical Summary ---
Author Author Admin, E Organization [facility] Address Unknown Phone Unavailable Allergies, Adverse Reactions, [...] Active Rian Ortega MD Tobacco use disorder Paper Pattern Folder well woman exam V72.31 Active Sasha Espitia APRN Routine gynecological examination Bariatric operative procedure V45.86 Active Mariely Faux RMRy Bariatric surgery status Physical examination V70.0 Active Sasha Espitia APRN Routine general medical examination at a health care facility Dysuria 788.1 Active Nereyda Rodriguez APRN Dysuria Urinary tract infection 599.0 Active Nereyda Rodriguez APRN Urinary tract infection, site not specified Supervision high risk , third trimester ICD-V23.9 [...] gestation of ICD-V28.9 Inactive Deepika Alvarez LRT 18 weeks gestation of ICD-V28.9 Inactive Karen Jaramillo MD Medication List Medication Instructions Start Date Stop Date Generic Name NDC Status Provider Patient Instruction CIPRO 500 MG TAB 1 tablet by mouth twice daily CIPROFLOXACIN HCL 77936550027 No Longer Active Tariq Marrero MD Active AZO TABS TABS 2 tabs qd PHENAZOPYRIDINE HCL TABS 13231341793 No Longer Active Tariq Marrero MD Active CIPROFLOXACIN HCL 250 MG ORAL TABS 1 twice a day for bladder infection 07/24 CIPROFLOXACIN HCL 43016522716 No Longer Active Tariq Marrero MD Active SM VITAMIN B12 TR 1000 MCG ORAL CR-TABS 1 tab po daily CYANOCOBALAMIN 73480670399 No Longer Active Nereyda Rodriguez APRN Active CARAFATE 1 GM TAB 1 tab po as needed up to 4 times per day SUCRALFATE 36037149057 No Longer Active Nereyda Rodriguez APRN Active PNV PLUS MULTIVITAMIN 27-1 MG ORAL TABS 1 daily VIT-FE FUMARATE-FA 10268199760 No Longer Active Sasha Espitia APRN Active CHANTIX STARTING MONTH DANILO 0.5 MG X 11 & 1 MG X 42 TABS take as directed 2015 VARENICLINE TARTRATE 80828665357 No Longer Active Sasha Espitia APRN Active CHANTIX 1 MG TABS 1 twice a day to help quit smoking VARENICLINE TARTRATE 79578539281 No Longer Active Sasha Espitia APRN Active OMEPRAZOLE 20 MG CPDR 1 tablet by mouth daily OMEPRAZOLE 75442867736 Active Sasha Espitia APRN Active FLINSTONES GUMMIES OMEGA-3 DHA ORAL CHEW 2 gummies per day PEDIATRIC MULTIPLE VIT-C-FA 23593399838 Active Sasha Espitia APRN Active CLINDAMYCIN HCL 150 MG CAPS 1 four times a day for 1 week CLINDAMYCIN HCL 75161815711 No Longer Active Karen Jaramillo MD Active TRIAMCINOLONE ACETONIDE 0.1 % CREA Apply to affected areas TID for up to 1 week TRIAMCINOLONE ACETONIDE 00601806148 No Longer Active Rian Ortega MD Active ZITHROMAX 1 GM ORAL PACK Take 1 time and recheck lab in 2-3 weeks AZITHROMYCIN 29272101370 No Longer Active Rian Ortega MD Active FLAGYL 500 MG TAB four tabs PO x 1 METRONIDAZOLE 11890314439 No Longer Active Aris Charlton MD Active FLAGYL 500 MG TAB four tabs PO x 1 FLAGYL 500 MG TAB 061835 METRONIDAZOLE Inactive ZITHROMAX 1 GM ORAL PACK Take 1 time and recheck lab in 2-3 weeks ZITHROMAX 1 GM ORAL PACK 646137 AZITHROMYCIN Inactive TRIAMCINOLONE ACETONIDE 0.1 % CREA Apply to affected areas TID for up to 1 week TRIAMCINOLONE ACETONIDE 0.1 % CREA 5121219 TRIAMCINOLONE ACETONIDE Inactive CLINDAMYCIN HCL 150 MG CAPS 1 four times a day for 1 week CLINDAMYCIN HCL 150 MG CAPS 818422 CLINDAMYCIN HCL Inactive CHANTIX 1 MG TABS [...] per day 06/27 CARAFATE 1 GM TAB 599720 SUCRALFATE Inactive SM VITAMIN B12 TR 1000 [...] mouth twice daily CIPRO 500 MG TAB 510805 CIPROFLOXACIN HCL Inactive Immunizations Vaccine Administration Date [...] E&M - 3141-9 207.5 [lb_av] Weight Measured Diagnostic Results Date Name Value Unit Range Description Lab Report: CBC, Comp. Metabolic Panel, HGBA1C - Chemistry sodium, serum 142 mmol/L [phone] carbon dioxide, venous blood 32.8 mmol/L 21.0-32.0 [...] Panel - Chemistry cholesterol, serum 165 mg/dL [phone] triglyceride, serum, fasting 124 mg/dL 30-200 HDL cholesterol, serum 47 mg/dL 32-96 LDL cholesterol, serum 93 mg/dL 0-130 Lab Report: Prothrombin Time - Coagulation international normalized ratio (INR) 1.0 1.0-3.5 prothrombin time (patient) 12.0 SECS s 11.1-13.4 Lab Report: UADIP W/MICRO, AUTO - Chemistry RBC, urine, dipstick Negative Negative protein, total urine random Trace mg/dL Negative Lab Report: UADIP W/MICRO, AUTO - Urinalysis urine color Yellow Colorless;Lightyellow;Straw;Yellow urobilinogen, urine, semiquantitative (dipstick) 0.2 Normal leukocyte esterase, urine, by dipstick Trace Negative nitrite, urine, semiquantitative Negative Negative specific gravity, urine >=1.030 1.000-1.030 pH, urine, semiquantitative 5.5 5.0-8.5 appearance, urine Clear Clear glucose, urine, semiquantitative Negative Negative ketones, urine, by test strip Trace Negative bilirubin, urine Negative Negative Lab Report: VITAMIN B12/FOLATE, SERUM PANE, FERRITIN, VITAMIN D, 25-HYDR ... - Chemistry vitamin D 25-hydroxy, serum 32 ng/mL 30-100 Encounters Code Encounter Date Provider Facility CPT-49101 Level 3 Est. Patient 15:43:38 CDT Tariq Marrero MD [facility] CPT-34456 Level 3 Est. Patient 11:16:27 CONSOLE OPERATOR Nereyda Rodriguez [facility] CPT-00221 Level 4 Est. Patient 08:56:42 CONSOLE OPERATOR Sasha Espitia [facility] CPT-10468 Level 3 Est. Patient 16:40:58 CDT Rian Ortega MD [facility] CPT-19048 Level 3 Est. Patient 13:55:16 CONSOLE OPERATOR Rian Ortega MD [facility] CPT-43839 Level 3 Est. Patient 10:42:52 CDT Corrina Bailon [facility] CPT-00109 Level 3 Est. Patient 11:18:30 CDT Aris Charlton MD [facility] Procedures Code Procedure Name Date Entry Date Standard Description CPT-32355 UA w micro - LAB USE ONLY 13:09:18 CONSOLE OPERATOR CPT-21774 Urine Culture - LAB USE ONLY 13:09:18 CONSOLE OPERATOR CPT-50145 Wet Mount - LAB USE ONLY 11:11:39 CONSOLE OPERATOR CPT-32991 Lipid - LAB USE ONLY 15:05:24 CONSOLE OPERATOR CPT-43344 PT/INR - LAB USE ONLY 12:14:07 CDT CPT-58169 HGBA1C - LAB USE ONLY 12:14:07 CDT CPT-29242 CMP - LAB USE ONLY 12:14:07 CDT CPT-34470 CBC - LAB USE ONLY 12:14:07 CDT CPT-25148 Venipuncture Draw Fee 12:14:06 CDT CPT-J0702 Celestone 6 mg (Betamethasone) 15:04:45 CONSOLE OPERATOR CPT-54348 Abx/Therapy Injection 15:04:45 CONSOLE OPERATOR CPT-J0702 Celestone 12 mg (Betamethasone) 11:45:31 CONSOLE OPERATOR CPT-38545 Visit 11:39:52 CONSOLE OPERATOR CPT-28532C Sono biophysical pro wo stress test-[place] Only 11:21: 42 CONSOLE OPERATOR CPT-45812 Visit 16:00:50 CONSOLE OPERATOR CPT-53137V Sono biophysical pro wo stress test-[place] Only 13:12: 18 CONSOLE OPERATOR CPT-79328 Sono biophysical pro wo stress test 11:17:21 CONSOLE OPERATOR 05/21 CPT-34837 Tdap 7yrs or > 15:22:51 CONSOLE OPERATOR CPT-80551 Immunization Single Admin 15:22:51 CONSOLE OPERATOR CPT-21172 Tdap 7yrs or > 15:09:13 CONSOLE OPERATOR CPT-36121 Visit 14:54:16 CONSOLE OPERATOR CPT-30976 Fluzone Quadrivalent Intramuscular Suspension 0.5 ML 16: 58:58 CDT CPT-48927 Administration single or combination vaccine inc oral 16 :58:58 CDT CPT-41239 Fluzone Thim Free 36mo and older 14:47:39 CDT CPT-48233 Visit 14:47:39 CDT CPT-79056 Sono OB limited 10:30:07 CDT CPT-69578 Visit 10:04:44 CDT CPT-47585 Sono OB comp > 14 weeks 12:50:41 CDT CPT-75286 Visit 12:06:25 CDT CPT-30500 Visit 12:43:15 CDT CPT-37324 Visit 10:06:02 CDT CPT-59918 Spec Collection and Handling Fee 10:00:31 CDT CPT-27890 Visit 10:00:30 CDT CPT-91967 Drug Screen Grisel 14:36:13 CDT
--- OUTSIDE RECORDS SUMMARY | 2018-08-28 06:34 | XMS REPORT | Clinical Summary ---
Author Author Admin, E Organization [facility] Address Unknown Phone Unavailable Allergies, Adverse Reactions, Alerts Allergy Name Reaction Description Start Date Severity Status Provider No Known Allergies [facility] Conditions or Problems Problem Name Problem [...] for up to 1 week TRIAMCINOLONE ACETONIDE 93159490434 Active Aris Charlton MD Active PNV PLUS MULTIVITAMIN 27-1 MG ORAL TABS 1 daily VIT-FE FUMARATE-FA 27799291114 Active Aris Charlton MD Active FLAGYL 500 MG TAB four tabs PO x 1 METRONIDAZOLE 37966016609 No Longer Active Aris Charlton MD Active FLAGYL 500 MG TAB four tabs PO x 1 FLAGYL 500 MG TAB 995857 METRONIDAZOLE Inactive Immunizations Vaccine Administration Date Value [...] % 11.0-15.0 platelet count 307 THOUSAND/UL 10*3/mm3 599-961 2594/05/26 mean platelet volume 8.9 fL 7.5-11.5 Blood [...] Lab Report: Thyroid Stimulating Hormone (L), Quant [facility] [place] - Chemistry TSH 2.31 m[iU]/mL 0.36-3.74 Lab Report: [facility] [place] - Chemistry human [...] UC Encounters Code Encounter Date Provider Facility CPT-82065 Level 3 Est. Patient 10:42:52 CDT Corrinagodfrey Bailon APRN [facility] CPT-08680 Level 3 Est. Patient 11:18:30 CDT Aris Charlton MD [facility] Procedures Code Procedure Name Date Entry Date Standard Description CPT-66202 Spec Collection and Handling Fee 10:00:31 CDT CPT-12026 Visit 10:00:30 CDT CPT-82142 Drug Screen Grisel 14:36:13 CDT
--- OUTSIDE RECORDS SUMMARY | 2018-08-28 06:34 | XMS REPORT | Clinical Summary ---
Author Author Admin, E Organization [facility] Address Unknown Phone Unavailable Allergies, Adverse Reactions, Alerts Allergy Name Reaction Description Start Date Severity Status Provider No Known Allergies [facility] Conditions or Problems Problem Name Problem Code [...] for up to 1 week TRIAMCINOLONE ACETONIDE 19938662692 Active Aris Charlton MD Active PNV PLUS MULTIVITAMIN 27-1 MG ORAL TABS 1 daily VIT-FE FUMARATE-FA 37654601759 Active Aris Charlton MD Active FLAGYL 500 MG TAB four tabs PO x 1 METRONIDAZOLE 47932212170 No Longer Active Aris Charlton MD Active FLAGYL 500 MG TAB four tabs PO x 1 FLAGYL 500 MG TAB 788191 METRONIDAZOLE Inactive Immunizations Vaccine Administration Date Value [...] % 11.0-15.0 platelet count 307 THOUSAND/UL 10*3/mm3 495-030 1074/05/26 mean platelet volume 8.9 fL 7.5-11.5 Blood [...] Lab Report: Thyroid Stimulating Hormone (L), Quant [facility] [place] - Chemistry TSH 2.31 m[iU]/mL 0.36-3.74 Lab Report: [facility] [place] - Chemistry human chorionic gonadotropin, urine, qualitative [...] UC Encounters Code Encounter Date Provider Facility CPT-42775 Level 3 Est. Patient 10:42:52 CDT Corrinagodfrey Bailon APRN [facility] CPT-55626 Level 3 Est. Patient 11:18:30 CDT Aris Charlton MD [facility] Procedures Code Procedure Name Date Entry Date Standard Description CPT-16121 Spec Collection and Handling Fee 10:00:31 CDT CPT-81414 Visit 10:00:30 CDT CPT-91004 Drug Screen Grisel 14:36:13 CDT
--- OUTSIDE RECORDS SUMMARY | 2018-08-28 06:35 | XMS REPORT | Clinical Summary ---
Author Author Admin, [facility] Organization [facility] Address Unknown Phone Unavailable Allergies, [...] Active Rian Ortega MD Tobacco use disorder Compliance Investigator well woman exam V72.31 Active Sasha Espitia [...] day for bladder infection 07/24 CIPROFLOXACIN HCL 55133030164 Active Nereyda Rodriguez APRN Active AZO TABS TABS 2 tabs qd PHENAZOPYRIDINE HCL TABS 44082790719 Active Nereyda Rodriguez APRN Active SM VITAMIN B12 TR 1000 MCG ORAL CR-TABS 1 tab po daily CYANOCOBALAMIN 70868637310 No Longer Active Nereyda Rodriguez APRN Active CARAFATE 1 GM TAB 1 tab po as needed up to 4 times per day SUCRALFATE 45365390223 No Longer Active Nereyda Rodriguez APRN Active PNV PLUS MULTIVITAMIN 27-1 MG ORAL TABS 1 daily VIT-FE FUMARATE-FA 97537152060 No Longer Active Sasha Espitia APRN Active CHANTIX STARTING MONTH DANILO 0.5 MG X 11 & 1 MG X 42 TABS take as directed 2015 VARENICLINE TARTRATE 51479241639 No Longer Active Sasha Espitia APRN Active CHANTIX 1 MG TABS 1 twice a day to help quit smoking VARENICLINE TARTRATE 17434275527 No Longer Active Sasha Espitia APRN Active OMEPRAZOLE 20 MG CPDR 1 tablet by mouth daily OMEPRAZOLE 68126232759 Active Sasha Espitia APRN Active FLINSTONES GUMMIES OMEGA-3 DHA ORAL CHEW 2 gummies per day PEDIATRIC MULTIPLE VIT-C-FA 26714366956 Active Sasha Espitia APRN Active CLINDAMYCIN HCL 150 MG CAPS 1 four times a day for 1 week CLINDAMYCIN HCL 73957493155 No Longer Active Karen Jaramillo MD Active TRIAMCINOLONE ACETONIDE 0.1 % CREA Apply to affected areas TID for up to 1 week TRIAMCINOLONE ACETONIDE 97919707066 No Longer Active Rian Ortega MD Active ZITHROMAX 1 GM ORAL PACK Take 1 time and recheck lab in 2-3 weeks AZITHROMYCIN 72801661402 No Longer Active Rian Ortega MD Active FLAGYL 500 MG TAB four tabs PO x 1 METRONIDAZOLE 53682424349 No Longer Active Aris Charlton MD Active FLAGYL 500 MG TAB four tabs PO x 1 FLAGYL 500 MG TAB 496763 METRONIDAZOLE Inactive ZITHROMAX 1 GM ORAL PACK Take 1 time and recheck lab in 2-3 weeks ZITHROMAX 1 GM ORAL PACK 269453 AZITHROMYCIN Inactive TRIAMCINOLONE ACETONIDE 0.1 % CREA Apply to affected areas TID for up to 1 week TRIAMCINOLONE ACETONIDE 0.1 % CREA 3003780 TRIAMCINOLONE ACETONIDE Inactive CLINDAMYCIN HCL 150 MG CAPS 1 four times a day for 1 week CLINDAMYCIN HCL 150 MG CAPS 685557 CLINDAMYCIN HCL Inactive CHANTIX 1 MG TABS [...] per day 06/27 CARAFATE 1 GM TAB 378717 SUCRALFATE Inactive SM VITAMIN B12 TR 1000 [...] HGBA1C - Chemistry sodium, serum 142 mmol/L 606-696 8066 carbon dioxide, venous blood 32.8 mmol/L 21.0-32.0 [...] Panel - Chemistry cholesterol, serum 165 mg/dL [phone] triglyceride, serum, fasting 124 mg/dL 30-200 HDL [...] 30-100 Encounters Code Encounter Date Provider Facility CPT-43947 Level 3 Est. Patient 11:16:27 INTERIOR DECORATOR PAPERHANGING Nereyda Rodriguez [facility] CPT-96142 Level 4 Est. Patient 08:56:42 INTERIOR DECORATOR PAPERHANGING Sasha Espitia [facility] CPT-28959 Level 3 Est. Patient 16:40:58 CDT Rian Ortega MD [facility] CPT-07989 Level 3 Est. Patient 13:55:16 INTERIOR DECORATOR PAPERHANGING Rian Ortega MD [facility] CPT-47741 Level 3 Est. Patient 10:42:52 CDT Corrina Bailon [facility] CPT-53897 Level 3 Est. Patient 11:18:30 CDT Aris Charlton MD [facility] Procedures Code Procedure Name Date Entry Date Standard Description CPT-01335 UA w micro - LAB USE ONLY 13:09:18 INTERIOR DECORATOR PAPERHANGING CPT-78850 Urine Culture - LAB USE ONLY 13:09:18 INTERIOR DECORATOR PAPERHANGING CPT-66142 Wet Mount - LAB USE ONLY 11:11:39 INTERIOR DECORATOR PAPERHANGING CPT-12476 Lipid - LAB USE ONLY 15:05:24 INTERIOR DECORATOR PAPERHANGING CPT-85354 PT/INR - LAB USE ONLY 12:14:07 CDT CPT-33769 HGBA1C - LAB USE ONLY 12:14:07 CDT CPT-90670 CMP - LAB USE ONLY 12:14:07 CDT CPT-65832 CBC - LAB USE ONLY 12:14:07 CDT CPT-15003 Venipuncture Draw Fee 12:14:06 CDT CPT-J0702 Celestone 6 mg (Betamethasone) 15:04:45 INTERIOR DECORATOR PAPERHANGING CPT-09789 Abx/Therapy Injection 15:04:45 INTERIOR DECORATOR PAPERHANGING CPT-J0702 Celestone 12 mg (Betamethasone) 11:45:31 INTERIOR DECORATOR PAPERHANGING CPT-92950 Visit 11:39:52 INTERIOR DECORATOR PAPERHANGING CPT-90842L Sono biophysical pro wo stress test-[place] Only 11:21: 42 INTERIOR DECORATOR PAPERHANGING CPT-30492 Visit 16:00:50 INTERIOR DECORATOR PAPERHANGING CPT-55984P Sono biophysical pro wo stress test-[facility] 13:12: 18 INTERIOR DECORATOR PAPERHANGING CPT-80680 Sono biophysical pro wo stress test 11:17:21 INTERIOR DECORATOR PAPERHANGING 05/21 CPT-42289 Tdap 7yrs or > 15:22:51 INTERIOR DECORATOR PAPERHANGING CPT-11609 Immunization Single Admin 15:22:51 INTERIOR DECORATOR PAPERHANGING CPT-94576 Tdap 7yrs or > 15:09:13 INTERIOR DECORATOR PAPERHANGING CPT-68935 Visit 14:54:16 INTERIOR DECORATOR PAPERHANGING CPT-02320 Fluzone Quadrivalent Intramuscular Suspension 0.5 ML 16: 58:58 CDT CPT-57442 Administration single or combination vaccine inc oral 16 :58:58 CDT CPT-64051 Fluzone Thim Free 36mo and older 14:47:39 CDT CPT-80094 Visit 14:47:39 CDT CPT-12729 Sono OB limited 10:30:07 CDT CPT-43816 Visit 10:04:44 CDT CPT-07365 Sono OB comp > 14 weeks 12:50:41 CDT CPT-30054 Visit 12:06:25 CDT CPT-30949 Visit 12:43:15 CDT CPT-85002 Visit 10:06:02 CDT CPT-63147 Spec Collection and Handling Fee 10:00:31 CDT CPT-68421 Visit 10:00:30 CDT CPT-65540 Drug Screen Grisel 14:36:13 CDT
--- OUTSIDE RECORDS SUMMARY | 2018-08-28 06:35 | XMS REPORT | Clinical Summary ---
[...] High-risk sexual behavior Diarrhea 787.91 Resolved Rian Orteag MD Diarrhea Nausea and vomiting 787.01 Resolved [...] Ortega MD Tobacco use disorder Director Of Strategic Partnerships well woman exam V72.31 Active Sasha Espitia [...] tablet by mouth twice daily CIPROFLOXACIN HCL 29176850639 Active Tariq Marrero MD Active AZO TABS TABS 2 tabs qd PHENAZOPYRIDINE HCL TABS 81840373579 No Longer Active Tariq Marrero MD Active CIPROFLOXACIN HCL 250 MG ORAL TABS 1 twice a day for bladder infection 07/24 CIPROFLOXACIN HCL 81290285614 No Longer Active Tariq Marrero MD Active SM VITAMIN B12 TR 1000 MCG ORAL CR-TABS 1 tab po daily CYANOCOBALAMIN 51363650476 No Longer Active Nereyda Rodriguez APRN Active CARAFATE 1 GM TAB 1 tab po as needed up to 4 times per day SUCRALFATE 86066195288 No Longer Active Nereyda Rodriguez APRN Active PNV PLUS MULTIVITAMIN 27-1 MG ORAL TABS 1 daily VIT-FE FUMARATE-FA 28421938401 No Longer Active Sasha Espitia APRN Active CHANTIX STARTING MONTH DANILO 0.5 MG X 11 & 1 MG X 42 TABS take as directed 2015 VARENICLINE TARTRATE 35087207499 No Longer Active Sasha Espitia APRN Active CHANTIX 1 MG TABS 1 twice a day to help quit smoking VARENICLINE TARTRATE 86865598169 No Longer Active Sasha Espitia APRN Active OMEPRAZOLE 20 MG CPDR 1 tablet by mouth daily OMEPRAZOLE 28103938246 Active Sasha Espitia APRN Active FLINSTONES GUMMIES OMEGA-3 DHA ORAL CHEW 2 gummies per day PEDIATRIC MULTIPLE VIT-C-FA 94966691058 Active Sasha Espitia APRN Active CLINDAMYCIN HCL 150 MG CAPS 1 four times a day for 1 week CLINDAMYCIN HCL 13507693973 No Longer Active Karen Jaramillo MD Active TRIAMCINOLONE ACETONIDE 0.1 % CREA Apply to affected areas TID for up to 1 week TRIAMCINOLONE ACETONIDE 97395071319 No Longer Active Rian Ortega MD Active ZITHROMAX 1 GM ORAL PACK Take 1 time and recheck lab in 2-3 weeks AZITHROMYCIN 82341979031 No Longer Active Rian Ortega MD Active FLAGYL 500 MG TAB four tabs PO x 1 METRONIDAZOLE 70136744827 No Longer Active Aris Charlton MD Active FLAGYL 500 MG TAB four tabs PO x 1 FLAGYL 500 MG TAB 333949 METRONIDAZOLE Inactive ZITHROMAX 1 GM ORAL PACK Take 1 time and recheck lab in 2-3 weeks ZITHROMAX 1 GM ORAL PACK 248924 AZITHROMYCIN Inactive TRIAMCINOLONE ACETONIDE 0.1 % CREA Apply to affected areas TID for up to 1 week TRIAMCINOLONE ACETONIDE 0.1 % CREA 7201021 TRIAMCINOLONE ACETONIDE Inactive CLINDAMYCIN HCL 150 MG CAPS 1 four times a day for 1 week CLINDAMYCIN HCL 150 MG CAPS 030716 CLINDAMYCIN HCL Inactive CHANTIX 1 MG TABS [...] per day 06/27 CARAFATE 1 GM TAB 926244 SUCRALFATE Inactive SM VITAMIN B12 TR 1000 [...] HGBA1C - Chemistry sodium, serum 142 mmol/L [phone] carbon dioxide, venous blood 32.8 mmol/L 21.0-32.0 [...] leukocyte count, blood 6.0 10^3/MM^3 10*3/mm3 4.6-10.2 red blood cell distribution width 15.7 % 11.6-14.8 mean corpuscular hemoglobin concentration, RBC 32.7 G/DL % 31.8- 35.4 mean corpuscular hemoglobin, RBC 28.6 pg 27.0-31.2 mean corpuscular volume, RBC 88 fL 80-97 hematocrit, blood 37.6 % 36.0-46.0 platelet count 243 10^3/MM^3 10*3/mm3 142-424 Lab Report: Lipid Panel - Chemistry cholesterol, serum 165 mg/dL [phone] triglyceride, serum, fasting 124 mg/dL 30-200 HDL [...] AUTO - Urinalysis urine color Yellow Colorless;Lightyellow;Straw;Yellow appearance, urine Clear Clear glucose, urine, semiquantitative Negative Negative ketones, urine, by test strip Trace Negative bilirubin, urine Negative Negative urobilinogen, urine, semiquantitative (dipstick) 0.2 Normal leukocyte esterase, urine, by dipstick Trace Negative nitrite, urine, semiquantitative Negative Negative specific gravity, urine >=1.030 1.000-1.030 pH, urine, semiquantitative 5.5 5.0-8.5 Lab Report: VITAMIN B12/FOLATE, SERUM PANE, FERRITIN, VITAMIN D, 25-HYDR ... - Chemistry vitamin D 25-hydroxy, serum 32 ng/mL 30-100 Encounters Code Encounter Date Provider Facility CPT-39363 Level 3 Est. Patient 15:43:38 CDT Tariq Marrero MD [facility] CPT-34556 Level 3 Est. Patient 11:16:27 OIL RIG DRILLER Nereyda Rodriguez [facility] CPT-97481 Level 4 Est. Patient 08:56:42 OIL RIG DRILLER Sasha Espitia [facility] CPT-55541 Level 3 Est. Patient 16:40:58 CDT Rian Ortega MD [facility] CPT-77211 Level 3 Est. Patient 13:55:16 OIL RIG DRILLER Rian Ortega MD [facility] CPT-04828 Level 3 Est. Patient 10:42:52 CDT Corrina Bailon APRN [facility] CPT-70362 Level 3 Est. Patient 11:18:30 CDT Aris Charlton MD [facility] Procedures Code Procedure Name Date Entry Date Standard Description CPT-34788 UA w micro - LAB USE ONLY 13:09:18 OIL RIG DRILLER CPT-50403 Urine Culture - LAB USE ONLY 13:09:18 OIL RIG DRILLER CPT-98519 Wet Mount - LAB USE ONLY 11:11:39 OIL RIG DRILLER CPT-06267 Lipid - LAB USE ONLY 15:05:24 OIL RIG DRILLER CPT-84915 PT/INR - LAB USE ONLY 12:14:07 CDT CPT-39656 HGBA1C - LAB USE ONLY 12:14:07 CDT CPT-34143 CMP - LAB USE ONLY 12:14:07 CDT CPT-19717 CBC - LAB USE ONLY 12:14:07 CDT CPT-68999 Venipuncture Draw Fee 12:14:06 CDT CPT-J0702 Celestone 6 mg (Betamethasone) 15:04:45 OIL RIG DRILLER CPT-19815 Abx/Therapy Injection 15:04:45 OIL RIG DRILLER CPT-J0702 Celestone 12 mg (Betamethasone) 11:45:31 OIL RIG DRILLER CPT-70924 Visit 11:39:52 OIL RIG DRILLER CPT-61427A Sono biophysical pro wo stress test-[place] Only 11:21: 42 OIL RIG DRILLER CPT-12503 Visit 16:00:50 OIL RIG DRILLER CPT-38319C Sono biophysical pro wo stress test-[place] Only 13:12: 18 OIL RIG DRILLER CPT-50767 Sono biophysical pro wo stress test 11:17:21 OIL RIG DRILLER 05/21 CPT-50493 Tdap 7yrs or > 15:22:51 OIL RIG DRILLER CPT-74622 Immunization Single Admin 15:22:51 OIL RIG DRILLER CPT-63535 Tdap 7yrs or > 15:09:13 OIL RIG DRILLER CPT-85997 Visit 14:54:16 OIL RIG DRILLER CPT-19009 Fluzone Quadrivalent Intramuscular Suspension 0.5 ML 16: 58:58 CDT CPT-92599 Administration single or combination vaccine inc oral 16 :58:58 CDT CPT-60987 Fluzone Thim Free 36mo and older 14:47:39 CDT CPT-91896 Visit 14:47:39 CDT CPT-23487 Sono OB limited 10:30:07 CDT CPT-17949 Visit 10:04:44 CDT CPT-54296 Sono OB comp > 14 weeks 12:50:41 CDT CPT-29122 Visit 12:06:25 CDT CPT-73557 Visit 12:43:15 CDT CPT-09448 Visit 10:06:02 CDT CPT-05641 Spec Collection and Handling Fee 10:00:31 CDT CPT-99796 Visit 10:00:30 CDT CPT-78578 Drug Screen Grisel 14:36:13 CDT
--- OUTSIDE RECORDS SUMMARY | 2018-08-28 06:36 | XMS REPORT | Clinical Summary ---
Author Author Admin, E Organization [facility] Address Unknown Phone Unavailable Allergies, Adverse [...] and recheck lab in 2-3 weeks AZITHROMYCIN 94506034170 Active Carolina Mayfield LPN Active TRIAMCINOLONE ACETONIDE 0.1 % CREA Apply to affected areas TID for up to 1 week TRIAMCINOLONE ACETONIDE 39215154671 Active Aris Charlton MD Active PNV PLUS MULTIVITAMIN 27-1 MG ORAL TABS 1 daily VIT-FE FUMARATE-FA 76872222725 Active Aris Charlton MD Active FLAGYL 500 MG TAB four tabs PO x 1 METRONIDAZOLE 47252892321 No Longer Active Aris Charlton MD Active FLAGYL 500 MG TAB four tabs PO x 1 FLAGYL 500 MG TAB 760019 METRONIDAZOLE Inactive Immunizations Vaccine Administration Date Value [...] % 11.0-15.0 platelet count 307 THOUSAND/UL 10*3/mm3 044-378 9834/05/26 mean platelet volume 8.9 fL 7.5-11.5 Blood [...] antibody, serum, IgG 2.66 Lab Report: Chlamydia/GC APTIMA/90972 - Lab chlamydia DNA probe DETECTED NOT DETECTED chlamydia DNA probe NOT DETECTED NOT DETECTED Lab Report: Chlamydia/GC APTIMA/98280 - Microbiology Neisseria gonorrhoeae DNA probe NOT DETECTED NOT DETECTED Neisseria gonorrhoeae DNA probe NOT DETECTED NOT DETECTED Lab Report: HGBA1C - Chemistry hemoglobin A1C, blood, as % of total hemoglobin 5.3 % 4.3-6.0 Lab Report: Thyroid Stimulating Hormone (L), Quant [facility] [place] - Chemistry TSH 2.31 m[iU]/mL 0.36-3.74 Lab [...] pH, urine, semiquantitative 7.0 5.0-8.5 Lab Report: [facility] [place] - Chemistry human chorionic gonadotropin, urine, qualitative [...] N Encounters Code Encounter Date Provider Facility CPT-64346 Level 3 Est. Patient 10:42:52 CDT Corrina Bailon APRN [facility] CPT-99564 Level 3 Est. Patient 11:18:30 CDT Aris Charlton MD [facility] Procedures Code Procedure Name Date Entry Date Standard Description CPT-88647 Visit 10:06:02 CDT CPT-60298 Spec Collection and Handling Fee 10:00:31 CDT CPT-07185 Visit 10:00:30 CDT CPT-65457 Drug Screen [place]isel 14:36:13 CDT
--- OUTSIDE RECORDS SUMMARY | 2018-08-28 06:36 | XMS REPORT | Clinical Summary ---
Author Author Admin, [facility] Organization [facility] Address Unknown Phone Unavailable Allergies, Adverse [...] Obesity complicating , second trimester 649.13 Resolved Rina Ortega MD Obesity complicating , childbirth , [...] Active Rian Ortega MD Tobacco use disorder Hog Operator well woman exam V72.31 Active Sasha [...] not specified Bronchitis 490 Active Carline Best GENERAL SERVICE TECHNICIAN Bronchitis, not specified as acute or chronic [...] Status Provider Patient Instruction GUAIFENESIN 600 MG [id number] 1 twice a day as needed for congestion GUAIFENESIN 53645830056 Active Carline Best APRN Active SYMBICORT 160-4.5 MCG/ACT AERO 2 puff BID for 10 days BUDESONIDE-FORMOTEROL FUMARATE 82136319464 Active Carline Best APRN Active AZITHROMYCIN 250 MG TABS 2 po qd x 1 day, then 1 po qd x 4 days AZITHROMYCIN 75512332744 No Longer Active Carline Best APRN Active CIPRO 500 MG TAB 1 tablet by mouth twice daily CIPROFLOXACIN HCL 15019876136 No Longer Active Tariq Marrero MD Active AZO TABS TABS 2 tabs qd PHENAZOPYRIDINE HCL TABS 31184254421 No Longer Active Tariq Marrero MD Active CIPROFLOXACIN HCL 250 MG ORAL TABS 1 twice a day for bladder infection 07/24 CIPROFLOXACIN HCL 65297498671 No Longer Active Tariq Marrero MD Active SM VITAMIN B12 TR 1000 MCG ORAL CR-TABS 1 tab po daily CYANOCOBALAMIN 17842052887 No Longer Active Nereyda Rodriguez APRN Active CARAFATE 1 GM TAB 1 tab po as needed up to 4 times per day SUCRALFATE 97233299343 No Longer Active Nereyda Rodriguez APRN Active PNV PLUS MULTIVITAMIN 27-1 MG ORAL TABS 1 daily VIT-FE FUMARATE-FA 42735228362 No Longer Active Sasha Espitia APRN Active CHANTIX STARTING MONTH DANILO 0.5 MG X 11 & 1 MG X 42 TABS take as directed 2015 VARENICLINE TARTRATE 61975884165 No Longer Active Sasha Espitia APRN Active CHANTIX 1 MG TABS 1 twice a day to help quit smoking VARENICLINE TARTRATE 65357352418 No Longer Active Sasha Espitia APRN Active OMEPRAZOLE 20 MG CPDR 1 tablet by mouth daily OMEPRAZOLE 58199153529 Active Sasha Espitia APRN Active FLINSTONES GUMMIES OMEGA-3 DHA ORAL CHEW 2 gummies per day PEDIATRIC MULTIPLE VIT-C-FA 54860378572 Active Sasha Espitia APRN Active CLINDAMYCIN HCL 150 MG CAPS 1 four times a day for 1 week CLINDAMYCIN HCL 47797838788 No Longer Active Karen Jaramillo MD Active TRIAMCINOLONE ACETONIDE 0.1 % CREA Apply to affected areas TID for up to 1 week TRIAMCINOLONE ACETONIDE 78402668568 No Longer Active Rian Ortega MD Active ZITHROMAX 1 GM ORAL PACK Take 1 time and recheck lab in 2-3 weeks AZITHROMYCIN 91663057891 No Longer Active Rian Ortega MD Active FLAGYL 500 MG TAB four tabs PO x 1 METRONIDAZOLE 93612484596 No Longer Active Aris Charlton MD Active FLAGYL 500 MG TAB four tabs PO x 1 FLAGYL 500 MG TAB 970898 METRONIDAZOLE Inactive ZITHROMAX 1 GM ORAL PACK Take 1 time and recheck lab in 2-3 weeks ZITHROMAX 1 GM ORAL PACK 748366 AZITHROMYCIN Inactive TRIAMCINOLONE ACETONIDE 0.1 % CREA Apply to affected areas TID for up to 1 week TRIAMCINOLONE ACETONIDE 0.1 % CREA 3170897 TRIAMCINOLONE ACETONIDE Inactive CLINDAMYCIN HCL 150 MG CAPS 1 four times a day for 1 week CLINDAMYCIN HCL 150 MG CAPS 297102 CLINDAMYCIN HCL Inactive CHANTIX 1 MG TABS [...] per day 06/27 CARAFATE 1 GM TAB 650412 SUCRALFATE Inactive SM VITAMIN B12 TR 1000 MCG ORAL CR-TABS 1 tab po daily SM VITAMIN B12 TR 1000 MCG ORAL CR-TABS CYANOCOBALAMIN Inactive CIPROFLOXACIN HCL 250 MG ORAL TABS 1 twice a day for bladder infection 07/24 CIPROFLOXACIN HCL 250 MG ORAL TABS 338821 CIPROFLOXACIN HCL Inactive AZO TABS TABS 2 tabs qd AZO TABS TABS PHENAZOPYRIDINE HCL TABS Inactive CIPRO 500 MG TAB 1 tablet by mouth twice daily CIPRO 500 MG TAB 580277 CIPROFLOXACIN HCL Inactive AZITHROMYCIN 250 MG TABS 2 po qd x 1 day, then 1 po qd x 4 days AZITHROMYCIN 250 MG TABS 2642613 AZITHROMYCIN Inactive Immunizations Vaccine Administration Date Value [...] HGBA1C - Chemistry sodium, serum 142 mmol/L [phone] carbon dioxide, venous blood 32.8 mmol/L 21.0-32.0 [...] Panel - Chemistry cholesterol, serum 165 mg/dL 232-166 2130 triglyceride, serum, fasting 124 mg/dL 30-200 HDL [...] 30-100 Encounters Code Encounter Date Provider Facility CPT-92887 Level 3 Est. Patient 11:17:51 CDT Jillina Frazell [facility] CPT-49393 Level 3 Est. Patient 15:43:38 CDT Tariq Marrero MD [facility] CPT-53532 Level 3 Est. Patient 11:16:27 SENIOR CONTROLS TECHNICIAN Nereyda Rodriguez [facility] CPT-69159 Level 4 Est. Patient 08:56:42 SENIOR CONTROLS TECHNICIAN Sasha Espitia [facility] CPT-62045 Level 3 Est. Patient 16:40:58 CDT Rian Ortega MD [facility] CPT-70713 Level 3 Est. Patient 13:55:16 SENIOR CONTROLS TECHNICIAN Rian Ortega MD [facility] CPT-80394 Level 3 Est. Patient 10:42:52 CDT Corrina Garcianikita [facility] CPT-33203 Level 3 Est. Patient 11:18:30 CDT Aris Charlton MD [facility] Procedures Code Procedure Name Date Entry Date Standard Description CPT-38915 UA w micro - LAB USE ONLY 13:09:18 SENIOR CONTROLS TECHNICIAN CPT-64501 Urine Culture - LAB USE ONLY 13:09:18 SENIOR CONTROLS TECHNICIAN CPT-50838 Wet Mount - LAB USE ONLY 11:11:39 SENIOR CONTROLS TECHNICIAN CPT-57784 Lipid - LAB USE ONLY 15:05:24 SENIOR CONTROLS TECHNICIAN CPT-41799 PT/INR - LAB USE ONLY 12:14:07 CDT CPT-09992 HGBA1C - LAB USE ONLY 12:14:07 CDT CPT-32249 CMP - LAB USE ONLY 12:14:07 CDT CPT-63678 CBC - LAB USE ONLY 12:14:07 CDT CPT-06479 Venipuncture Draw Fee 12:14:06 CDT CPT-J0702 Celestone 6 mg (Betamethasone) 15:04:45 SENIOR CONTROLS TECHNICIAN CPT-73257 Abx/Therapy Injection 15:04:45 SENIOR CONTROLS TECHNICIAN CPT-J0702 Celestone 12 mg (Betamethasone) 11:45:31 SENIOR CONTROLS TECHNICIAN CPT-79184 Visit 11:39:52 SENIOR CONTROLS TECHNICIAN CPT-83440H Sono biophysical pro wo stress test-[facility] 11:21: 42 SENIOR CONTROLS TECHNICIAN CPT-83632 Visit 16:00:50 SENIOR CONTROLS TECHNICIAN CPT-17059M Sono biophysical pro wo stress test[facility] 13:12: 18 SENIOR CONTROLS TECHNICIAN CPT-47217 Sono biophysical pro wo stress test 11:17:21 SENIOR CONTROLS TECHNICIAN 05/21 CPT-96337 Tdap 7yrs or > 15:22:51 SENIOR CONTROLS TECHNICIAN CPT-54125 Immunization Single Admin 15:22:51 SENIOR CONTROLS TECHNICIAN CPT-67477 Tdap 7yrs or > 15:09:13 SENIOR CONTROLS TECHNICIAN CPT-09130 Visit 14:54:16 SENIOR CONTROLS TECHNICIAN CPT-30317 Fluzone Quadrivalent Intramuscular Suspension 0.5 ML 16: 58:58 CDT CPT-20221 Administration single or combination vaccine inc oral 16 :58:58 CDT CPT-20673 Fluzone Thim Free 36mo and older 14:47:39 CDT CPT-86718 Visit 14:47:39 CDT CPT-91224 Sono OB limited 10:30:07 CDT CPT-17257 Visit 10:04:44 CDT CPT-87203 Sono OB comp > 14 weeks 12:50:41 CDT CPT-76680 Visit 12:06:25 CDT CPT-28587 Visit 12:43:15 CDT CPT-39616 Visit 10:06:02 CDT CPT-65362 Spec Collection and Handling Fee 10:00:31 CDT CPT-61704 Visit 10:00:30 CDT CPT-99834 Drug Screen [place]isel 14:36:13 CDT
--- OUTSIDE RECORDS SUMMARY | 2018-08-28 06:36 | XMS REPORT | Clinical Summary ---
Author Author Admin, E Organization [facility] Address Unknown Phone Unavailable Allergies, Adverse Reactions, Alerts Allergy Name Reaction Description Start Date Severity Status Provider No Known Allergies [facility] Conditions or Problems Problem Name Problem [...] for up to 1 week TRIAMCINOLONE ACETONIDE 98261689611 Active Aris Charlton MD Active PNV PLUS MULTIVITAMIN 27-1 MG ORAL TABS 1 daily VIT-FE FUMARATE-FA 21715251518 Active Aris Charlton MD Active FLAGYL 500 MG TAB four tabs PO x 1 METRONIDAZOLE 04975494539 No Longer Active Aris Charlton MD Active FLAGYL 500 MG TAB four tabs PO x 1 FLAGYL 500 MG TAB 224449 METRONIDAZOLE Inactive Immunizations Vaccine Administration Date Value [...] % 11.0-15.0 platelet count 307 THOUSAND/UL 10*3/mm3 149-737 9762/05/26 mean platelet volume 8.9 fL 7.5-11.5 Blood [...] Lab Report: Thyroid Stimulating Hormone (L), Quant [facility] [place] - Chemistry TSH 2.31 m[iU]/mL 0.36-3.74 Lab Report: [facility] Chemistry human chorionic gonadotropin, [...] UC Encounters Code Encounter Date Provider Facility CPT-37409 Level 3 Est. Patient 11:18:30 CDT Aris Charlton MD [facility] Procedures Code Procedure Name Date Entry Date Standard Description CPT-06773 Spec Collection and Handling Fee 10:00:31 CDT CPT-50609 Visit 10:00:30 CDT CPT-48020 Drug Screen [place] 14:36:13 CDT
--- OUTSIDE RECORDS SUMMARY | 2018-08-28 06:37 | XMS REPORT | Clinical Summary ---
Author Author Admin, E Organization [facility] [employer] Address Unknown Phone Unavailable Allergies, Adverse Reactions, [...] and recheck lab in 2-3 weeks AZITHROMYCIN 97054690917 Active Carolina Mayfield LPN Active TRIAMCINOLONE ACETONIDE 0.1 % CREA Apply to affected areas TID for up to 1 week TRIAMCINOLONE ACETONIDE 41017771288 Active Aris Charlton MD Active PNV PLUS MULTIVITAMIN 27-1 MG ORAL TABS 1 daily VIT-FE FUMARATE-FA 00505238513 Active Aris Charlton MD Active FLAGYL 500 MG TAB four tabs PO x 1 METRONIDAZOLE 88449935868 No Longer Active Aris Charlton MD Active FLAGYL 500 MG TAB four tabs PO x 1 FLAGYL 500 MG TAB 326165 METRONIDAZOLE Inactive Immunizations Vaccine Administration Date Value [...] % 11.0-15.0 platelet count 307 THOUSAND/UL 10*3/mm3 085-758 0440/05/26 mean platelet volume 8.9 fL 7.5-11.5 Blood [...] ... - Chemistry sodium, serum 137 mmol/L 782-785 3254/08/28 potassium, serum 4.3 mmol/L 3.5-5.2 chloride, serum [...] 325 10^3/MM^3 10*3/mm3 142-424 Lab Report: Chlamydia/GC APTIMA/92619 - Lab chlamydia DNA probe NOT DETECTED NOT DETECTED chlamydia DNA probe DETECTED NOT DETECTED Lab Report: Chlamydia/GC APTIMA/38048 - Microbiology Neisseria gonorrhoeae DNA probe NOT DETECTED NOT DETECTED Neisseria gonorrhoeae DNA probe NOT DETECTED NOT DETECTED Lab Report: Chlamydia/GC APTIMA/60208, HEPATITIS B S AG W/, HIV-1/2 Agn/ ... - Chemistry hepatitis B surface antigen NON-REACTIVE NON-REACTIVE Lab Report: Chlamydia/GC APTIMA/16207, HEPATITIS B S AG W/, HIV-1/2 Agn/ ... - Lab chlamydia DNA probe NOT DETECTED NOT DETECTED Lab Report: Chlamydia/GC APTIMA/53872, HEPATITIS B S AG W/, HIV-1/2 Agn/ ... - Microbiology Neisseria gonorrhoeae DNA probe NOT DETECTED NOT DETECTED Lab Report: Chlamydia/GC APTIMA/51190, HEPATITIS B S AG W/, HIV-1/2 Agn/ [...] pH, urine, semiquantitative 7.0 5.0-8.5 Lab Report: [facility] [place] [...] N Encounters Code Encounter Date Provider Facility CPT-02427 Level 3 Est. Patient 10:42:52 CDT Corrina Bailon APRN [facility] CPT-08355 Level 3 Est. Patient 11:18:30 CDT Aris Charlton MD [facility] Procedures Code Procedure Name Date Entry Date Standard Description CPT-47912 Visit 12:43:15 CDT CPT-92351 Visit 10:06:02 CDT CPT-03342 Spec Collection and Handling Fee 10:00:31 CDT CPT-54601 Visit 10:00:30 CDT CPT-32004 Drug Screen Grisel 14:36:13 CDT
--- OUTSIDE RECORDS SUMMARY | 2018-08-28 06:37 | XMS REPORT | Clinical Summary ---
Author Author Admin, E Organization [facility] Address Unknown Phone Unavailable Allergies, Adverse Reactions, [...] complication 29 weeks gestation of V28.9 Inactive Deepkia Alvarez LRT Encounter for unspecified screening of [...] gestation of ICD-V28.9 Inactive Deepika Alvarez LRT Medication List Medication Instructions Start Date Stop Date Generic Name NDC Status Provider Patient Instruction CLINDAMYCIN HCL 150 MG CAPS 1 four times a day for 1 week CLINDAMYCIN HCL 02142936026 No Longer Active Karen Jaramillo MD Active TRIAMCINOLONE ACETONIDE 0.1 % CREA Apply to affected areas TID for up to 1 week TRIAMCINOLONE ACETONIDE 11976168095 No Longer Active Rian Ortega MD Active ZITHROMAX 1 GM ORAL PACK Take 1 time and recheck lab in 2-3 weeks AZITHROMYCIN 84378523302 No Longer Active Rian Ortega MD Active PNV PLUS MULTIVITAMIN 27-1 MG ORAL TABS 1 daily VIT-FE FUMARATE-FA 74675410224 Active Aris Charlton MD Active FLAGYL 500 MG TAB four tabs PO x 1 METRONIDAZOLE 77939596605 No Longer Active Aris Charlton MD Active FLAGYL 500 MG TAB four tabs PO x 1 FLAGYL 500 MG TAB 514251 METRONIDAZOLE Inactive ZITHROMAX 1 GM ORAL PACK Take 1 time and recheck lab in 2-3 weeks ZITHROMAX 1 GM ORAL PACK 114174 AZITHROMYCIN Inactive TRIAMCINOLONE ACETONIDE 0.1 % CREA Apply to affected areas TID for up to 1 week TRIAMCINOLONE ACETONIDE 0.1 % CREA 9721264 TRIAMCINOLONE ACETONIDE Inactive CLINDAMYCIN HCL 150 MG CAPS 1 four times a day for 1 week CLINDAMYCIN HCL 150 MG CAPS 188949 CLINDAMYCIN HCL Inactive Immunizations Vaccine Administration Date [...] pressure, diastolic - 8462-4 69 mm[Hg] BP cavlo blood pressure, systolic - 8480-6 114 mm[Hg] [...] % 11.0-15.0 platelet count 307 THOUSAND/UL 10*3/mm3 993-210 5961/05/26 mean platelet volume 8.9 fL 7.5-11.5 Blood [...] ... - Chemistry sodium, serum 137 mmol/L 204-926 1866/08/28 potassium, serum 4.3 mmol/L 3.5-5.2 chloride, serum [...] 302 10^3/MM^3 10*3/mm3 142-424 Lab Report: Chlamydia/GC APTIMA/10967 - Lab chlamydia DNA probe NOT DETECTED NOT DETECTED chlamydia DNA probe NOT DETECTED NOT DETECTED chlamydia DNA probe DETECTED NOT DETECTED Lab Report: Chlamydia/GC APTIMA/50290 - Microbiology Neisseria gonorrhoeae DNA probe NOT DETECTED NOT DETECTED Neisseria gonorrhoeae DNA probe NOT DETECTED NOT DETECTED Neisseria gonorrhoeae DNA probe NOT DETECTED NOT DETECTED Lab Report: Chlamydia/GC APTIMA/53801, HEPATITIS B S AG W/, HIV-1/2 Agn/ ... - Chemistry hepatitis B surface antigen NON-REACTIVE NON-REACTIVE Lab Report: Chlamydia/GC APTIMA/84810, HEPATITIS B S AG W/, HIV-1/2 Agn/ ... - Lab chlamydia DNA probe NOT DETECTED NOT DETECTED Lab Report: Chlamydia/GC APTIMA/25832, HEPATITIS B S AG W/, HIV-1/2 Agn/ ... - Microbiology Neisseria gonorrhoeae DNA probe NOT DETECTED NOT DETECTED Lab Report: Chlamydia/GC APTIMA/36741, HEPATITIS B S AG W/, HIV-1/2 Agn/ [...] pH, urine, semiquantitative 7.0 5.0-8.5 Lab Report: [facility] - Chemistry human chorionic gonadotropin, [...] N Encounters Code Encounter Date Provider Facility CPT-28388 Level 3 Est. Patient 13:55:16 ENGINE BOSS Rian Ortega MD [facility] CPT-13337 Level 3 Est. Patient 10:42:52 CDT Corrina Bailon APRN [facility] CPT-20609 Level 3 Est. Patient 11:18:30 CDT Aris Charlton MD [facility] Procedures Code Procedure Name Date Entry Date Standard Description CPT-J0702 Celestone 6 mg (Betamethasone) 15:04:45 ENGINE BOSS CPT-09773 Abx/Therapy Injection 15:04:45 ENGINE BOSS CPT-J0702 Celestone 12 mg (Betamethasone) 11:45:31 ENGINE BOSS CPT-69393 Visit 11:39:52 ENGINE BOSS CPT-66620E Sono biophysical pro wo stress test[facility] Only 11:21: 42 ENGINE BOSS CPT-26055 Visit 16:00:50 ENGINE BOSS CPT-10248F [facility] biophysical pro wo stress test[facility] Only 13:12: 18 ENGINE BOSS CPT-83811 Sono biophysical pro wo stress test 11:17:21 ENGINE BOSS 05/21 CPT-30236 Tdap 7yrs or > 15:22:51 ENGINE BOSS CPT-72344 Immunization Single Admin 15:22:51 ENGINE BOSS CPT-30090 Tdap 7yrs or > 15:09:13 ENGINE BOSS CPT-55706 Visit 14:54:16 ENGINE BOSS CPT-29292 Fluzone Quadrivalent Intramuscular Suspension 0.5 ML 16: 58:58 CDT CPT-20458 Administration single or combination vaccine inc oral 16 :58:58 CDT CPT-56463 Fluzone Thim Free 36mo and older 14:47:39 CDT CPT-12532 Visit 14:47:39 CDT CPT-72078 Sono OB limited 10:30:07 CDT CPT-66911 Visit 10:04:44 CDT CPT-30754 Sono OB comp > 14 weeks 12:50:41 CDT CPT-71360 Visit 12:06:25 CDT CPT-75080 Visit 12:43:15 CDT CPT-27502 Visit 10:06:02 CDT CPT-90194 Spec Collection and Handling Fee 10:00:31 CDT CPT-81595 Visit 10:00:30 CDT CPT-29940 Drug Screen [place] 14:36:13 CDT
--- OUTSIDE RECORDS SUMMARY | 2018-08-28 06:38 | XMS REPORT | Clinical Summary ---
Author Author Admin, [facility] Organization [facility] Address Unknown Phone Unavailable Allergies, Adverse Reactions, [...] sites 30 weeks gestation of V28.9 Inactive Depeika Kunzty LRT Encounter for unspecified screening of mother 31 weeks gestation of V28.9 Inactive Deepika Alvarez LRT Encounter for unspecified screening of mother Morbid obesity 278.01 Active Rian Ortega MD Morbid obesity Obstructive sleep apnea 327.23 Active Rian Ortega MD Obstructive sleep apnea (adult) (pediatric) Cigarette smoker 305.1 Active Rian Ortega MD Tobacco use disorder Press Service Reader well woman exam V72.31 Active Sasha Espitia [...] day for bladder infection 07/24 CIPROFLOXACIN HCL 36688279172 Active Nereyda Rodriguez APRN Active AZO TABS TABS 2 tabs qd PHENAZOPYRIDINE HCL TABS 44435760372 Active Nereyda Rodriguez APRN Active SM VITAMIN B12 TR 1000 MCG ORAL CR-TABS 1 tab po daily CYANOCOBALAMIN 24211972294 No Longer Active Nereyda Rodriguez APRN Active CARAFATE 1 GM TAB 1 tab po as needed up to 4 times per day SUCRALFATE 47117778042 No Longer Active Nereyda Rodriguez APRN Active PNV PLUS MULTIVITAMIN 27-1 MG ORAL TABS 1 daily VIT-FE FUMARATE-FA 91101445993 No Longer Active Sasha Espitia APRN Active CHANTIX STARTING MONTH DANILO 0.5 MG X 11 & 1 MG X 42 TABS take as directed 2015 VARENICLINE TARTRATE 64879540607 No Longer Active Sasha Espitia APRN Active CHANTIX 1 MG TABS 1 twice a day to help quit smoking VARENICLINE TARTRATE 75998503803 No Longer Active Sasha Espitia APRN Active OMEPRAZOLE 20 MG CPDR 1 tablet by mouth daily OMEPRAZOLE 99699811771 Active Sasha Espitia APRN Active FLINSTONES GUMMIES OMEGA-3 DHA ORAL CHEW 2 gummies per day PEDIATRIC MULTIPLE VIT-C-FA 28402041639 Active Sasha Espitia APRN Active CLINDAMYCIN HCL 150 MG CAPS 1 four times a day for 1 week CLINDAMYCIN HCL 58501444151 No Longer Active Karen Jaramillo MD Active TRIAMCINOLONE ACETONIDE 0.1 % CREA Apply to affected areas TID for up to 1 week TRIAMCINOLONE ACETONIDE 19886683323 No Longer Active Rian Ortega MD Active ZITHROMAX 1 GM ORAL PACK Take 1 time and recheck lab in 2-3 weeks AZITHROMYCIN 70853577720 No Longer Active Rian Ortega MD Active FLAGYL 500 MG TAB four tabs PO x 1 METRONIDAZOLE 60072572514 No Longer Active Aris Charlton MD Active FLAGYL 500 MG TAB four tabs PO x 1 FLAGYL 500 MG TAB 724298 METRONIDAZOLE Inactive ZITHROMAX 1 GM ORAL PACK Take 1 time and recheck lab in 2-3 weeks ZITHROMAX 1 GM ORAL PACK 143646 AZITHROMYCIN Inactive TRIAMCINOLONE ACETONIDE 0.1 % CREA Apply to affected areas TID for up to 1 week TRIAMCINOLONE ACETONIDE 0.1 % CREA 0714986 TRIAMCINOLONE ACETONIDE Inactive CLINDAMYCIN HCL 150 MG CAPS 1 four times a day for 1 week CLINDAMYCIN HCL 150 MG CAPS 860938 CLINDAMYCIN HCL Inactive CHANTIX 1 MG TABS [...] per day 06/27 CARAFATE 1 GM TAB 914858 SUCRALFATE Inactive SM VITAMIN B12 TR 1000 [...] HGBA1C - Chemistry sodium, serum 142 mmol/L 528-645 6958 carbon dioxide, venous blood 32.8 mmol/L 21.0-32.0 [...] Panel - Chemistry cholesterol, serum 165 mg/dL 424-468 1516 triglyceride, serum, fasting 124 mg/dL 30-200 HDL [...] 30-100 Encounters Code Encounter Date Provider Facility CPT-11820 Level 3 Est. Patient 11:16:27 DIRECTOR ON AIR Nereyda Rodriguez [facility] CPT-35499 Level 4 Est. Patient 08:56:42 DIRECTOR ON AIR Sasha Espitia [facility] CPT-79869 Level 3 Est. Patient 16:40:58 CDT Rian Ortega MD [facility] CPT-03131 Level 3 Est. Patient 13:55:16 DIRECTOR ON AIR Rian Ortega MD [facility] CPT-14314 Level 3 Est. Patient 10:42:52 CDT Corrina Angelesvalentine [facility] CPT-30733 Level 3 Est. Patient 11:18:30 CDT Aris Charlton MD [facility] Procedures Code Procedure Name Date Entry Date Standard Description CPT-45490 UA w micro - LAB USE ONLY 13:09:18 DIRECTOR ON AIR CPT-99939 Urine Culture - LAB USE ONLY 13:09:18 DIRECTOR ON AIR CPT-10609 Wet Mount - LAB USE ONLY 11:11:39 DIRECTOR ON AIR CPT-33995 Lipid - LAB USE ONLY 15:05:24 DIRECTOR ON AIR CPT-57765 PT/INR - LAB USE ONLY 12:14:07 CDT CPT-79581 HGBA1C - LAB USE ONLY 12:14:07 CDT CPT-53710 CMP - LAB USE ONLY 12:14:07 CDT CPT-04591 CBC - LAB USE ONLY 12:14:07 CDT CPT-57652 Venipuncture Draw Fee 12:14:06 CDT CPT-J0702 Celestone 6 mg (Betamethasone) 15:04:45 DIRECTOR ON AIR CPT-23993 Abx/Therapy Injection 15:04:45 DIRECTOR ON AIR CPT-J0702 Celestone 12 mg (Betamethasone) 11:45:31 DIRECTOR ON AIR CPT-54038 Visit 11:39:52 DIRECTOR ON AIR CPT-72500V [facility]o biophysical pro wo [facility] test[facility] 11:21: 42 DIRECTOR ON AIR CPT-27208 Visit 16:00:50 DIRECTOR ON AIR CPT-86178U Sono biophysical pro wo stress test[facility] 13:12: 18 DIRECTOR ON AIR CPT-62453 Sono biophysical pro wo stress test 11:17:21 DIRECTOR ON AIR 05/21 CPT-26609 Tdap 7yrs or > 15:22:51 DIRECTOR ON AIR CPT-18412 Immunization Single Admin 15:22:51 DIRECTOR ON AIR CPT-94856 Tdap 7yrs or > 15:09:13 DIRECTOR ON AIR CPT-67373 Visit 14:54:16 DIRECTOR ON AIR CPT-91688 Fluzone Quadrivalent Intramuscular Suspension 0.5 ML 16: 58:58 CDT CPT-66258 Administration single or combination vaccine inc oral 16 :58:58 CDT CPT-98494 Fluzone Thim Free 36mo and older 14:47:39 CDT CPT-22216 Visit 14:47:39 CDT CPT-51352 Sono OB limited 10:30:07 CDT CPT-56086 Visit 10:04:44 CDT CPT-28442 Sono OB comp > 14 weeks 12:50:41 CDT CPT-08939 Visit 12:06:25 CDT CPT-79661 Visit 12:43:15 CDT CPT-01586 Visit 10:06:02 CDT CPT-98259 Spec Collection and Handling Fee 10:00:31 CDT CPT-80893 Visit 10:00:30 CDT CPT-14581 Drug Screen [place] 14:36:13 CDT
--- OUTSIDE RECORDS SUMMARY | 2018-08-28 06:38 | XMS REPORT | Clinical Summary ---
Author Author Admin, [facility] Organization [facility] Address Unknown Phone [...] or 24 weeks gestation of V28.9 Inactive Kaern Jaramillo MD Encounter for unspecified screening of [...] Active Rian Ortega MD Tobacco use disorder Chin Strap Cutter well woman exam V72.31 Active Sasha Espitia [...] po qd x 4 days 07/27 AZITHROMYCIN 52090101194 Active Carline Best APRN Active GUAIFENESIN ER 600 MG ORAL TABLET EXTENDED RELEASE 12 HOUR 1 twice a day as needed for congestion GUAIFENESIN 23292761537 No Longer Active Sasha Espitia APRN Active CYCLOBENZAPRINE HCL 10 MG ORAL TABLET 1 three times a day as needed for muscle spasm CYCLOBENZAPRINE HCL 03871161561 No Longer Active Sasha Espitia APRN Active SYMBICORT 160-4.5 MCG/ACT INHALATION AEROSOL 2 puff BID for 10 days BUDESONIDE-FORMOTEROL FUMARATE 28809774652 No Longer Active Rian Ortega MD Active AZITHROMYCIN 250 MG ORAL TABLET 2 po qd x 1 day, then 1 po qd x 4 days 02/15 AZITHROMYCIN 12954050304 No Longer Active Carline Best APRN Active CIPRO 500 MG ORAL TABLET 1 tablet by mouth twice daily CIPROFLOXACIN HCL 89440936628 No Longer Active Tariq Marrero MD Active AZO TABS TABLET 2 tabs qd PHENAZOPYRIDINE HCL TABS 19787564948 No Longer Active Tariq Marrero MD Active CIPROFLOXACIN HCL 250 MG ORAL TABLET 1 twice a day for bladder infection 2016 CIPROFLOXACIN HCL 09224418004 No Longer Active Tariq Marrero MD Active SM VITAMIN B12 TR 1000 MCG ORAL TABLET EXTENDED RELEASE 1 tab po daily 04/24 CYANOCOBALAMIN 34719095931 No Longer Active Nereyda Rodriguez APRN Active CARAFATE 1 GM ORAL TABLET 1 tab po as needed up to 4 times per day SUCRALFATE 16157241528 No Longer Active Nereyda Rodriguez APRN Active PNV PLUS MULTIVITAMIN 27-1 MG ORAL TABLET 1 daily 04/24 VIT-FE FUMARATE-FA 92209735768 No Longer Active Sasha Espitia APRN Active CHANTIX STARTING MONTH DANILO 0.5 MG X 11 & 1 MG X 42 ORAL TABLET take as directed VARENICLINE TARTRATE 07178899780 No Longer Active Sasha Espitia APRN Active CHANTIX 1 MG ORAL TABLET 1 twice a day to help quit smoking 04/24 VARENICLINE TARTRATE 50970045931 No Longer Active Sasha Espitia APRN Active OMEPRAZOLE 20 MG ORAL CAPSULE DELAYED RELEASE 1 tablet by mouth daily OMEPRAZOLE 54969393550 Active Sasha Espitia APRN Active FLINSTONES GUMMIES OMEGA-3 DHA ORAL TABLET CHEWABLE 2 gummies per day PEDIATRIC MULTIPLE VIT-C-FA 06885722358 Active Sasha Espitia APRN Active CLINDAMYCIN HCL 150 MG ORAL CAPSULE 1 four times a day for 1 week CLINDAMYCIN HCL 69704283115 No Longer Active Karen Jaramillo MD Active TRIAMCINOLONE ACETONIDE 0.1 % EXTERNAL CREAM Apply to affected areas TID for up to 1 week TRIAMCINOLONE ACETONIDE 58024082894 No Longer Active Rian Ortega MD Active ZITHROMAX 1 GM ORAL PACKET Take 1 time and recheck lab in 2-3 weeks AZITHROMYCIN 59537172926 No Longer Active Rian Ortega MD Active FLAGYL 500 MG ORAL TABLET four tabs PO x 1 METRONIDAZOLE 14112495857 No Longer Active Aris Charlton MD Active FLAGYL 500 MG ORAL TABLET four tabs PO x 1 FLAGYL 500 MG ORAL TABLET 460343 METRONIDAZOLE Inactive ZITHROMAX 1 GM ORAL PACKET Take 1 time and recheck lab in 2-3 weeks ZITHROMAX 1 GM ORAL PACKET 254863 AZITHROMYCIN Inactive TRIAMCINOLONE ACETONIDE 0.1 % EXTERNAL CREAM Apply to affected areas TID for up to 1 week TRIAMCINOLONE ACETONIDE 0.1 % EXTERNAL CREAM 9995292 TRIAMCINOLONE ACETONIDE Inactive CLINDAMYCIN HCL 150 MG ORAL CAPSULE 1 four times a day for 1 week CLINDAMYCIN HCL 150 MG ORAL CAPSULE 610985 CLINDAMYCIN HCL Inactive CHANTIX 1 MG ORAL [...] per day CARAFATE 1 GM ORAL TABLET 536873 SUCRALFATE Inactive SM VITAMIN B12 TR 1000 MCG ORAL TABLET EXTENDED RELEASE 1 tab po daily 04/24 SM VITAMIN B12 TR 1000 MCG ORAL TABLET EXTENDED RELEASE CYANOCOBALAMIN Inactive CIPROFLOXACIN HCL 250 MG ORAL TABLET 1 twice a day for bladder infection 2016 CIPROFLOXACIN HCL 250 MG ORAL TABLET 327124 CIPROFLOXACIN HCL Inactive AZO TABS TABLET 2 tabs qd AZO TABS TABLET PHENAZOPYRIDINE HCL TABS Inactive SYMBICORT 160-4.5 MCG/ACT INHALATION AEROSOL 2 puff BID for 10 days SYMBICORT 160-4.5 MCG/ACT INHALATION AEROSOL BUDESONIDE- FORMOTEROL FUMARATE Inactive CYCLOBENZAPRINE HCL 10 MG ORAL TABLET 1 three times a day as needed for muscle spasm CYCLOBENZAPRINE HCL 10 MG ORAL TABLET 023123 CYCLOBENZAPRINE HCL Inactive GUAIFENESIN ER 600 MG ORAL TABLET EXTENDED RELEASE 12 HOUR 1 twice a day as needed for congestion GUAIFENESIN ER 600 MG ORAL TABLET EXTENDED RELEASE 12 HOUR GUAIFENESIN Inactive CIPRO 500 MG ORAL TABLET 1 tablet by mouth twice daily CIPRO 500 MG ORAL TABLET 838737 CIPROFLOXACIN HCL Inactive AZITHROMYCIN 250 MG ORAL TABLET 2 po qd x 1 day, then 1 po qd x 4 days 02/15 AZITHROMYCIN 250 MG ORAL TABLET 634621 AZITHROMYCIN Inactive Immunizations Vaccine Administration Date Value [...] ... - Chemistry cholesterol, serum 142 mg/dL 877-012 4809/10/24 triglyceride, serum, fasting 77 mg/dL 30-200 HDL [...] Panel - Chemistry sodium, serum 137 mmol/L 979-754 8321/10/24 carbon dioxide, venous blood 24.4 mmol/L 21.0-32.0 [...] Negative;Positive Encounters Code Encounter Date Provider Facility CPT-12515 Level 3 Est. Patient 15:59:13 WAD PRINTING MACHINE OPERATOR Carline Best [facility] CPT-33009 Employment/ICC Exam 15:03:09 WAD PRINTING MACHINE OPERATOR Sasha Espitia [facility] CPT-74587 Level 3 Est. Patient 11:54:40 CDT Rian Ortega MD [facility] CPT-08209 Level 3 Est. Patient 11:17:51 CDT Carline Best [facility] CPT-27863 Level 3 Est. Patient 15:43:38 CDT Tariq Marrero MD [facility] CPT-12959 Level 3 Est. Patient 11:16:27 WAD PRINTING MACHINE OPERATOR Nereyda Rodriguez [facility] CPT-35788 Level 4 Est. Patient 08:56:42 WAD PRINTING MACHINE OPERATOR Sasha Espitia [facility] CPT-23937 Level 3 Est. Patient 16:40:58 CDT Rian Ortega MD [facility] CPT-53174 Level 3 Est. Patient 13:55:16 WAD PRINTING MACHINE OPERATOR Rian Ortega MD [facility] CPT-48447 Level 3 Est. Patient 10:42:52 CDT Corrina Bailon [facility] CPT-93048 Level 3 Est. Patient 11:18:30 CDT Aris Charlton MD [facility] Procedures Code Procedure Name Date Entry Date Standard Description CPT-76865 UA w micro - LAB USE ONLY 13:09:18 WAD PRINTING MACHINE OPERATOR CPT-35091 Urine Culture - LAB USE ONLY 13:09:18 WAD PRINTING MACHINE OPERATOR CPT-02644 Wet Mount - LAB USE ONLY 11:11:39 WAD PRINTING MACHINE OPERATOR CPT-02094 Lipid - LAB USE ONLY 15:05:24 WAD PRINTING MACHINE OPERATOR CPT-98305 PT/INR - LAB USE ONLY 12:14:07 CDT CPT-82249 HGBA1C - LAB USE ONLY 12:14:07 CDT CPT-05755 CMP - LAB USE ONLY 12:14:07 CDT CPT-42735 CBC - LAB USE ONLY 12:14:07 CDT CPT-39139 Venipuncture Draw Fee 12:14:06 CDT CPT-J0702 Celestone 6 mg (Betamethasone) 15:04:45 WAD PRINTING MACHINE OPERATOR CPT-01683 Abx/Therapy Injection 15:04:45 WAD PRINTING MACHINE OPERATOR CPT-J0702 Celestone 12 mg (Betamethasone) 11:45:31 WAD PRINTING MACHINE OPERATOR CPT-99056 Visit 11:39:52 WAD PRINTING MACHINE OPERATOR CPT-67151G Sono biophysical pro wo stress test-[facility] 11:21: 42 WAD PRINTING MACHINE OPERATOR CPT-21939 Visit 16:00:50 WAD PRINTING MACHINE OPERATOR CPT-81178W Sono biophysical pro wo stress test[facility] 13:12: 18 WAD PRINTING MACHINE OPERATOR CPT-49348 Sono biophysical pro wo stress test 11:17:21 WAD PRINTING MACHINE OPERATOR 05/21 CPT-99447 Tdap 7yrs or > 15:22:51 WAD PRINTING MACHINE OPERATOR CPT-99622 Immunization Single Admin 15:22:51 WAD PRINTING MACHINE OPERATOR CPT-04541 Tdap 7yrs or > 15:09:13 WAD PRINTING MACHINE OPERATOR CPT-52346 Visit 14:54:16 WAD PRINTING MACHINE OPERATOR CPT-84460 Fluzone Quadrivalent Intramuscular Suspension 0.5 ML 16: 58:58 CDT CPT-74575 Administration single or combination vaccine inc oral 16 :58:58 CDT CPT-07292 Fluzone Thim Free 36mo and older 14:47:39 CDT CPT-96343 Visit 14:47:39 CDT CPT-05507 Sono OB limited 10:30:07 CDT CPT-54573 Visit 10:04:44 CDT CPT-34001 Sono OB comp > 14 weeks 12:50:41 CDT CPT-07334 Visit 12:06:25 CDT CPT-01825 Visit 12:43:15 CDT CPT-50651 Visit 10:06:02 CDT CPT-15464 Spec Collection and Handling Fee 10:00:31 CDT CPT-12179 Visit 10:00:30 CDT CPT-58783 Drug Screen [place] 14:36:13 CDT
--- OUTSIDE RECORDS SUMMARY | 2018-08-28 06:39 | XMS REPORT | Clinical Summary ---
Author Author Admin, [facility] Organization [facility] Address [...] Active Rian Ortega MD Tobacco use disorder Synthetic Soil Blocks Pulper well woman exam V72.31 Active Sasha Espitia [...] as needed for muscle spasm CYCLOBENZAPRINE HCL 21808741026 Active Rian Ortega MD Active SYMBICORT 160-4.5 MCG/ACT AERO 2 puff BID for 10 days BUDESONIDE-FORMOTEROL FUMARATE 70036331907 No Longer Active Rian Ortega MD Active GUAIFENESIN 600 MG [id number] 1 twice a day as needed for congestion GUAIFENESIN 31060395388 Active Jillina Frazell FIRE INSPECTOR Active AZITHROMYCIN 250 MG TABS 2 po qd x 1 day, then 1 po qd x 4 days AZITHROMYCIN 80645112312 No Longer Active Jillina Fravirall FIRE INSPECTOR Active CIPRO 500 MG TAB 1 tablet by mouth twice daily CIPROFLOXACIN HCL 72172907887 No Longer Active Tariq Marrero MD Active AZO TABS TABS 2 tabs qd PHENAZOPYRIDINE HCL TABS 77934824191 No Longer Active Tariq Marrero MD Active CIPROFLOXACIN HCL 250 MG ORAL TABS 1 twice a day for bladder infection 07/24 CIPROFLOXACIN HCL 68566978544 No Longer Active Tariq Marrero MD Active SM VITAMIN B12 TR 1000 MCG ORAL CR-TABS 1 tab po daily CYANOCOBALAMIN 09911968747 No Longer Active Nereyda Rodriguez APRN Active CARAFATE 1 GM TAB 1 tab po as needed up to 4 times per day SUCRALFATE 67609586732 No Longer Active Nereyda Rodriguez APRN Active PNV PLUS MULTIVITAMIN 27-1 MG ORAL TABS 1 daily VIT-FE FUMARATE-FA 89659857770 No Longer Active Sasha Espitia APRN Active CHANTIX STARTING MONTH DANILO 0.5 MG X 11 & 1 MG X 42 TABS take as directed 2015 VARENICLINE TARTRATE 61585823528 No Longer Active Sasha Espitia APRN Active CHANTIX 1 MG TABS 1 twice a day to help quit smoking VARENICLINE TARTRATE 05328001020 No Longer Active Sasha Espitia APRN Active OMEPRAZOLE 20 MG CPDR 1 tablet by mouth daily OMEPRAZOLE 59967641326 Active Sasha Espitia APRN Active FLINSTONES GUMMIES OMEGA-3 DHA ORAL CHEW 2 gummies per day PEDIATRIC MULTIPLE VIT-C-FA 44979020664 Active Sasha Espitia APRN Active CLINDAMYCIN HCL 150 MG CAPS 1 four times a day for 1 week CLINDAMYCIN HCL 05447980649 No Longer Active Karen Jaramillo MD Active TRIAMCINOLONE ACETONIDE 0.1 % CREA Apply to affected areas TID for up to 1 week TRIAMCINOLONE ACETONIDE 31004999728 No Longer Active Rian Ortega MD Active ZITHROMAX 1 GM ORAL PACK Take 1 time and recheck lab in 2-3 weeks AZITHROMYCIN 73773398923 No Longer Active Rian Ortega MD Active FLAGYL 500 MG TAB four tabs PO x 1 METRONIDAZOLE 20416650014 No Longer Active Aris Charlton MD Active FLAGYL 500 MG TAB four tabs PO x 1 FLAGYL 500 MG TAB 874364 METRONIDAZOLE Inactive ZITHROMAX 1 GM ORAL PACK Take 1 time and recheck lab in 2-3 weeks ZITHROMAX 1 GM ORAL PACK 636983 AZITHROMYCIN Inactive TRIAMCINOLONE ACETONIDE 0.1 % CREA Apply to affected areas TID for up to 1 week TRIAMCINOLONE ACETONIDE 0.1 % CREA 0366486 TRIAMCINOLONE ACETONIDE Inactive CLINDAMYCIN HCL 150 MG CAPS 1 four times a day for 1 week CLINDAMYCIN HCL 150 MG CAPS 496613 CLINDAMYCIN HCL Inactive CHANTIX 1 MG TABS [...] per day 06/27 CARAFATE 1 GM TAB 950410 SUCRALFATE Inactive SM VITAMIN B12 TR 1000 MCG ORAL CR-TABS 1 tab po daily SM VITAMIN B12 TR 1000 MCG ORAL CR-TABS CYANOCOBALAMIN Inactive CIPROFLOXACIN HCL 250 MG ORAL TABS 1 twice a day for bladder infection 07/24 CIPROFLOXACIN HCL 250 MG ORAL TABS 791760 CIPROFLOXACIN HCL Inactive AZO TABS TABS 2 tabs qd AZO TABS TABS PHENAZOPYRIDINE HCL TABS Inactive SYMBICORT 160-4.5 MCG/ACT AERO 2 puff BID for 10 days SYMBICORT 160-4.5 MCG/ACT AERO BUDESONIDE-FORMOTEROL FUMARATE Inactive CIPRO 500 MG TAB 1 tablet by mouth twice daily CIPRO 500 MG TAB 108574 CIPROFLOXACIN HCL Inactive AZITHROMYCIN 250 MG TABS 2 po qd x 1 day, then 1 po qd x 4 days AZITHROMYCIN 250 MG TABS 484369 AZITHROMYCIN Inactive Immunizations Vaccine Administration Date Value [...] HGBA1C - Chemistry sodium, serum 142 mmol/L [phone] carbon dioxide, venous blood 32.8 mmol/L 21.0-32.0 [...] 30-100 Encounters Code Encounter Date Provider Facility CPT-13314 Level 3 Est. Patient 11:54:40 CDT Rian Ortega MD [facility] CPT-16294 Level 3 Est. Patient 11:17:51 CDT Carline Best [facility] CPT-23559 Level 3 Est. Patient 15:43:38 CDT Tariq Marrero MD [facility] CPT-86694 Level 3 Est. Patient 11:16:27 DAIRY FEED SALES CONSULTANT Nereyda Rodriguez [facility] CPT-23735 Level 4 Est. Patient 08:56:42 DAIRY FEED SALES CONSULTANT Sashashante Espitia [facility] CPT-09998 Level 3 Est. Patient 16:40:58 CDT Rian Ortega MD [facility] CPT-73292 Level 3 Est. Patient 13:55:16 DAIRY FEED SALES CONSULTANT Rian Ortega MD [facility] CPT-64420 Level 3 Est. Patient 10:42:52 CDT Corrina Bailon [facility] CPT-84496 Level 3 Est. Patient 11:18:30 CDT Aris Charlton MD [facility] Procedures Code Procedure Name Date Entry Date Standard Description CPT-53596 UA w micro - LAB USE ONLY 13:09:18 DAIRY FEED SALES CONSULTANT CPT-62305 Urine Culture - LAB USE ONLY 13:09:18 DAIRY FEED SALES CONSULTANT CPT-69914 Wet Mount - LAB USE ONLY 11:11:39 DAIRY FEED SALES CONSULTANT CPT-75544 Lipid - LAB USE ONLY 15:05:24 DAIRY FEED SALES CONSULTANT CPT-45652 PT/INR - LAB USE ONLY 12:14:07 CDT CPT-71960 HGBA1C - LAB USE ONLY 12:14:07 CDT CPT-53598 CMP - LAB USE ONLY 12:14:07 CDT CPT-35417 CBC - LAB USE ONLY 12:14:07 CDT CPT-26275 Venipuncture Draw Fee 12:14:06 CDT CPT-J0702 Celestone 6 mg (Betamethasone) 15:04:45 DAIRY FEED SALES CONSULTANT CPT-05936 Abx/Therapy Injection 15:04:45 DAIRY FEED SALES CONSULTANT CPT-J0702 Celestone 12 mg (Betamethasone) 11:45:31 DAIRY FEED SALES CONSULTANT CPT-05610 Visit 11:39:52 DAIRY FEED SALES CONSULTANT CPT-41539Q [employer] pro wo stress test-[place] Only 11:21: 42 DAIRY FEED SALES CONSULTANT CPT-78952 Visit 16:00:50 DAIRY FEED SALES CONSULTANT CPT-98133O [employer] pro wo stress test-[place] Only 13:12: 18 DAIRY FEED SALES CONSULTANT CPT-53971 [employer] pro wo stress test 11:17:21 DAIRY FEED SALES CONSULTANT 05/21 CPT-30468 Tdap 7yrs or > 15:22:51 DAIRY FEED SALES CONSULTANT CPT-66057 Immunization Single Admin 15:22:51 DAIRY FEED SALES CONSULTANT CPT-59126 Tdap 7yrs or > 15:09:13 DAIRY FEED SALES CONSULTANT CPT-35415 Visit 14:54:16 DAIRY FEED SALES CONSULTANT CPT-76801 Fluzone Quadrivalent Intramuscular Suspension 0.5 ML 16: 58:58 CDT CPT-17052 Administration single or combination vaccine inc oral 16 :58:58 CDT CPT-92979 Fluzone Thim Free 36mo and older 14:47:39 CDT CPT-43542 Visit 14:47:39 CDT CPT-71407 Sono OB limited 10:30:07 CDT CPT-51916 Visit 10:04:44 CDT CPT-89290 Sono OB comp > 14 weeks 12:50:41 CDT CPT-27374 Visit 12:06:25 CDT CPT-86860 Visit 12:43:15 CDT CPT-36468 Visit 10:06:02 CDT CPT-46062 Spec Collection and Handling Fee 10:00:31 CDT CPT-16998 Visit 10:00:30 CDT CPT-91604 Drug Screen [place] 14:36:13 CDT
--- OUTSIDE RECORDS SUMMARY | 2018-08-28 06:40 | XMS REPORT | Clinical Summary ---
Author Author Admin, E [facility] Address Unknown Phone Unavailable Allergies, Adverse Reactions, [...] Young primigravida Weight loss 783.21 Resolved Karen Jarmaillo MD Loss of weight 18 weeks gestation [...] Active Rian Ortega MD Tobacco use disorder Provider Network Mgr well woman exam V72.31 Active Sasha Tan [...] Special investigations and examinations - Gynecological examination Health examination of defined subpopulations ICD-V70.5 Inactive [...] ORAL TABLET 1 twice a day SULFAMETHOXAZOLE-TRIMETHOPRIM 70015032898 No Longer Active Irma Michaels Active ZITHROMAX Z-DANILO 250 MG ORAL TABLET 2 today, then 1 daily for 4 days AZITHROMYCIN 35125906257 No Longer Active Mahsa Alvarez Active AZITHROMYCIN 250 MG ORAL TABLET 2 po qd x 1 day, then 1 po qd x 4 days 07/27 AZITHROMYCIN 39671991250 No Longer Active Carline Best APRN Active GUAIFENESIN ER 600 MG ORAL TABLET EXTENDED RELEASE 12 HOUR 1 twice a day as needed for congestion GUAIFENESIN 54997126981 No Longer Active Sasha Tan APRN Active CYCLOBENZAPRINE HCL 10 MG ORAL TABLET 1 three times a day as needed for muscle spasm CYCLOBENZAPRINE HCL 21559180282 No Longer Active Sasha Tan APRN Active SYMBICORT 160-4.5 MCG/ACT INHALATION AEROSOL 2 puff BID for 10 days BUDESONIDE-FORMOTEROL FUMARATE 10706934044 No Longer Active Rian Ortega MD Active AZITHROMYCIN 250 MG ORAL TABLET 2 po qd x 1 day, then 1 po qd x 4 days 02/15 AZITHROMYCIN 88654710856 No Longer Active Carline Best APRN Active CIPRO 500 MG ORAL TABLET 1 tablet by mouth twice daily CIPROFLOXACIN HCL 73216893121 No Longer Active Tariq Marrero MD Active AZO TABS TABLET 2 tabs qd PHENAZOPYRIDINE HCL TABS 82653872050 No Longer Active Tariq Marrero MD Active CIPROFLOXACIN HCL 250 MG ORAL TABLET 1 twice a day for bladder infection 2016 CIPROFLOXACIN HCL 61019888480 No Longer Active Tariq Marrero MD Active SM VITAMIN B12 TR 1000 MCG ORAL TABLET EXTENDED RELEASE 1 tab po daily 04/24 CYANOCOBALAMIN 98441223475 No Longer Active Nereyda Rodriguez APRN Active CARAFATE 1 GM ORAL TABLET 1 tab po as needed up to 4 times per day SUCRALFATE 39114868674 No Longer Active Nereyda Rodriguez APRN Active PNV PLUS MULTIVITAMIN 27-1 MG ORAL TABLET 1 daily 04/24 VIT-FE FUMARATE-FA 41661489648 No Longer Active Sasha Tan APRN Active CHANTIX STARTING MONTH DANILO 0.5 MG X 11 & 1 MG X 42 ORAL TABLET take as directed VARENICLINE TARTRATE 73804372803 No Longer Active Sasha Tan APRN Active CHANTIX 1 MG ORAL TABLET 1 twice a day to help quit smoking 04/24 VARENICLINE TARTRATE 78743503666 No Longer Active Sasha Tan APRN Active OMEPRAZOLE 20 MG ORAL CAPSULE DELAYED RELEASE 1 tablet by mouth daily OMEPRAZOLE 17113467052 Active Sasha Tan APRN Active FLINSTONES GUMMIES OMEGA-3 DHA ORAL TABLET CHEWABLE 2 gummies per day PEDIATRIC MULTIPLE VIT-C-FA 43351349186 Active Sasha Tan APRN Active CLINDAMYCIN HCL 150 MG ORAL CAPSULE 1 four times a day for 1 week CLINDAMYCIN HCL 37109435063 No Longer Active Karen Jaramillo MD Active TRIAMCINOLONE ACETONIDE 0.1 % EXTERNAL CREAM Apply to affected areas TID for up to 1 week TRIAMCINOLONE ACETONIDE 06147117138 No Longer Active Rian Ortega MD Active ZITHROMAX 1 GM ORAL PACKET Take 1 time and recheck lab in 2-3 weeks AZITHROMYCIN 30995447636 No Longer Active Rian Ortega MD Active FLAGYL 500 MG ORAL TABLET four tabs PO x 1 METRONIDAZOLE 36043654600 No Longer Active Aris Charlton MD Active FLAGYL 500 MG ORAL TABLET four tabs PO x 1 FLAGYL 500 MG ORAL TABLET 746799 METRONIDAZOLE Inactive ZITHROMAX 1 GM ORAL PACKET Take 1 time and recheck lab in 2-3 weeks ZITHROMAX 1 GM ORAL PACKET 975466 AZITHROMYCIN Inactive TRIAMCINOLONE ACETONIDE 0.1 % EXTERNAL CREAM Apply to affected areas TID for up to 1 week TRIAMCINOLONE ACETONIDE 0.1 % EXTERNAL CREAM 4197544 TRIAMCINOLONE ACETONIDE Inactive CLINDAMYCIN HCL 150 MG ORAL CAPSULE 1 four times a day for 1 week CLINDAMYCIN HCL 150 MG ORAL CAPSULE 908678 CLINDAMYCIN HCL Inactive CHANTIX 1 MG ORAL [...] per day CARAFATE 1 GM ORAL TABLET 074201 SUCRALFATE Inactive SM VITAMIN B12 TR 1000 MCG ORAL TABLET EXTENDED RELEASE 1 tab po daily 04/24 SM VITAMIN B12 TR 1000 MCG ORAL TABLET EXTENDED RELEASE CYANOCOBALAMIN Inactive CIPROFLOXACIN HCL 250 MG ORAL TABLET 1 twice a day for bladder infection 2016 CIPROFLOXACIN HCL 250 MG ORAL TABLET 207795 CIPROFLOXACIN HCL Inactive AZO TABS TABLET 2 tabs qd AZO TABS TABLET PHENAZOPYRIDINE HCL TABS Inactive SYMBICORT 160-4.5 MCG/ACT INHALATION AEROSOL 2 puff BID for 10 days SYMBICORT 160-4.5 MCG/ACT INHALATION AEROSOL BUDESONIDE- FORMOTEROL FUMARATE Inactive CYCLOBENZAPRINE HCL 10 MG ORAL TABLET 1 three times a day as needed for muscle spasm CYCLOBENZAPRINE HCL 10 MG ORAL TABLET 473237 CYCLOBENZAPRINE HCL Inactive GUAIFENESIN ER 600 MG ORAL TABLET EXTENDED RELEASE 12 HOUR 1 twice a day as needed for congestion GUAIFENESIN ER 600 MG ORAL TABLET EXTENDED RELEASE 12 HOUR GUAIFENESIN Inactive BACTRIM DS 800-160 MG ORAL TABLET 1 twice a day BACTRIM DS 800-160 MG ORAL TABLET 710936 SULFAMETHOXAZOLE-TRIMETHOPRIM Inactive CIPRO 500 MG ORAL TABLET 1 tablet by mouth twice daily CIPRO 500 MG ORAL TABLET 622284 CIPROFLOXACIN HCL Inactive AZITHROMYCIN 250 MG ORAL TABLET 2 po qd x 1 day, then 1 po qd x 4 days 02/15 AZITHROMYCIN 250 MG ORAL TABLET 900257 AZITHROMYCIN Inactive AZITHROMYCIN 250 MG ORAL TABLET 2 po qd x 1 day, then 1 po qd x 4 days 07/27 AZITHROMYCIN 250 MG ORAL TABLET 851544 AZITHROMYCIN Inactive ZITHROMAX Z-DANILO 250 MG ORAL TABLET 2 today, then 1 daily for 4 days ZITHROMAX Z-DANILO 250 MG ORAL TABLET 280973 AZITHROMYCIN Inactive Immunizations Vaccine Administration Date Value Standard Description hepatitis B vaccine series yes hepatitis B vaccine, unspecified formulation Vital Signs Date Name Value Unit Range Description blood pressure, diastolic, repeated by physician 70 [...] - Hematology leukocyte count, blood sent to [facility] 10^3/mm^3 10*3/mm3 4.6-10.2 Lab Report: CBC, Lipid Panel, Thyroid Stimulating Hormone (L), Free Thyr ... - Chemistry cholesterol, serum 142 mg/dL [phone]/10/24 triglyceride, serum, fasting 77 mg/dL 30-200 HDL [...] Panel - Chemistry sodium, serum 137 mmol/L 531-499 1120/10/24 carbon dioxide, venous blood 24.4 mmol/L 21.0-32.0 [...] 1+ Encounters Code Encounter Date Provider Facility CPT-62463 Level 3 Est. Patient 14:41:20 CDT Tariq Marrero MD [facility] CPT-85411 Level 3 Est. Patient 11:06:09 OIL FIELD PUMPER Carline [facility] CPT-84188 Level 3 Est. Patient 15:59:13 OIL FIELD PUMPER [facility] CPT-32933 Employment/ICC Exam 15:03:09 OIL FIELD PUMPER [facility] CPT-69750 Level 3 Est. Patient 11:54:40 CDT Rian Ortega MD [facility] CPT-20200 Level 3 Est. Patient 11:17:51 CDT Carline [facility] CPT-44428 Level 3 Est. Patient 15:43:38 CDT Tariq Marrero MD [facility] CPT-76802 Level 3 Est. Patient 11:16:27 OIL FIELD PUMPER Nereyda Rodriguez [facility] CPT-79548 Level 4 Est. Patient 08:56:42 OIL FIELD PUMPER [facility] CPT-35336 Level 3 Est. Patient 16:40:58 CDT Rian Ortega MD [facility] CPT-85806 Level 3 Est. Patient 13:55:16 OIL FIELD PUMPER Rian Ortega MD [facility] CPT-08879 Level 3 Est. Patient 10:42:52 CDT Corrina Bailon APRN [facility] CPT-76254 Level 3 Est. Patient 11:18:30 CDT Aris Charlton MD [facility] Procedures Code Procedure Name Date Entry Date Standard Description CPT-85382 Prv Med Est Pt 40-64yrs 16:49:40 CDT CPT-91037 UA w micro - LAB USE ONLY 13:09:18 OIL FIELD PUMPER CPT-55308 Urine Culture - LAB USE ONLY 13:09:18 OIL FIELD PUMPER CPT-12618 Wet Mount - LAB USE ONLY 11:11:39 OIL FIELD PUMPER CPT-96853 Lipid - LAB USE ONLY 15:05:24 OIL FIELD PUMPER CPT-16670 PT/INR - LAB USE ONLY 12:14:07 CDT CPT-78098 HGBA1C - LAB USE ONLY 12:14:07 CDT CPT-94377 CMP - LAB USE ONLY 12:14:07 CDT CPT-42623 CBC - LAB USE ONLY 12:14:07 CDT CPT-86253 Venipuncture Draw Fee 12:14:06 CDT CPT-J0702 Celestone 6 mg (Betamethasone) 15:04:45 OIL FIELD PUMPER CPT-96429 Abx/Therapy Injection 15:04:45 OIL FIELD PUMPER CPT-J0702 Celestone 12 mg (Betamethasone) 11:45:31 OIL FIELD PUMPER CPT-73498 Visit 11:39:52 OIL FIELD PUMPER CPT-33696K [employer] pro wo stress test-[place] Only 11:21: 42 OIL FIELD PUMPER CPT-50527 Visit 16:00:50 OIL FIELD PUMPER CPT-43325M Sono biophysical pro wo stress test-[facility] 13:12: 18 OIL FIELD PUMPER CPT-09541 [employer] biophysical pro wo stress test 11:17:21 OIL FIELD PUMPER 05/21 CPT-44423 Tdap 7yrs or > 15:22:51 OIL FIELD PUMPER CPT-83557 Immunization Single Admin 15:22:51 OIL FIELD PUMPER CPT-90224 Tdap 7yrs or > 15:09:13 OIL FIELD PUMPER CPT-26659 Visit 14:54:16 OIL FIELD PUMPER CPT-59801 Fluzone Quadrivalent Intramuscular Suspension 0.5 ML 16: 58:58 CDT CPT-06554 Administration single or combination vaccine inc oral 16 :58:58 CDT CPT-38915 Fluzone Thim Free 36mo and older 14:47:39 CDT CPT-86798 Visit 14:47:39 CDT CPT-79428 Sono OB limited 10:30:07 CDT CPT-12759 Visit 10:04:44 CDT CPT-52797 Sono OB comp > 14 weeks 12:50:41 CDT CPT-00578 Visit 12:06:25 CDT CPT-62718 Visit 12:43:15 CDT CPT-70090 Visit 10:06:02 CDT CPT-93165 Spec Collection and Handling Fee 10:00:31 CDT CPT-81176 Visit 10:00:30 CDT CPT-66800 Drug Screen [place] 14:36:13 CDT
--- OUTSIDE RECORDS SUMMARY | 2018-08-28 06:40 | XMS REPORT | Clinical Summary ---
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 V72.31 Active Sasha Tan [...] Inactive Deepika Alvarez LRT Cellulitis ICD-682.9 Inactive Rain Ortega MD Abscess, skin ICD-682.9 Inactive Rian Ortega MD 30 weeks gestation of ICD-V28.9 Inactive Deepika MCQUEENT 31 weeks gestation of ICD-V28.9 Inactive Deepika MCQUEENT Morbid obesity ICD-278.01 Inactive Rian Ortega MD Dysuria ICD-788.1 Inactive Rian rOtega MD 03/29 Bronchitis ICD-490 Inactive Rian Ortega MD 2016 Myalgias ICD-729.1 Inactive Tariq Marrero MD Medication List Medication Instructions Start Date Stop Date Generic Name NDC Status Provider Patient Instruction BACTRIM DS 800-160 MG ORAL TABLET 1 twice a day SULFAMETHOXAZOLE-TRIMETHOPRIM 59326467868 No Longer Active Irma Michaels Active ZITHROMAX Z-DANILO 250 MG ORAL TABLET 2 today, then 1 daily for 4 days AZITHROMYCIN 05507522270 No Longer Active Mahsa Alvarez Active AZITHROMYCIN 250 MG ORAL TABLET 2 po qd x 1 day, then 1 po qd x 4 days 07/27 AZITHROMYCIN 81595400601 No Longer Active Carline Best APRN Active GUAIFENESIN ER 600 MG ORAL TABLET EXTENDED RELEASE 12 HOUR 1 twice a day as needed for congestion GUAIFENESIN 42815790645 No Longer Active Sasha Tan APRN Active CYCLOBENZAPRINE HCL 10 MG ORAL TABLET 1 three times a day as needed for muscle spasm CYCLOBENZAPRINE HCL 43476779081 No Longer Active Sasha Tan APRN Active SYMBICORT 160-4.5 MCG/ACT INHALATION AEROSOL 2 puff BID for 10 days BUDESONIDE-FORMOTEROL FUMARATE 43148976693 No Longer Active Rian Ortega MD Active AZITHROMYCIN 250 MG ORAL TABLET 2 po qd x 1 day, then 1 po qd x 4 days 02/15 AZITHROMYCIN 67608793499 No Longer Active Carline Best APRN Active CIPRO 500 MG ORAL TABLET 1 tablet by mouth twice daily CIPROFLOXACIN HCL 75935954613 No Longer Active Tariq Marrero MD Active AZO TABS TABLET 2 tabs qd PHENAZOPYRIDINE HCL TABS 05788677266 No Longer Active Tariq Marrero MD Active CIPROFLOXACIN HCL 250 MG ORAL TABLET 1 twice a day for bladder infection 2016 CIPROFLOXACIN HCL 00687904310 No Longer Active Tariq Marrero MD Active SM VITAMIN B12 TR 1000 MCG ORAL TABLET EXTENDED RELEASE 1 tab po daily 04/24 CYANOCOBALAMIN 64694617172 No Longer Active Nereyda Rodriguez APRN Active CARAFATE 1 GM ORAL TABLET 1 tab po as needed up to 4 times per day SUCRALFATE 61158996672 No Longer Active Nereyda Rodriguez APRN Active PNV PLUS MULTIVITAMIN 27-1 MG ORAL TABLET 1 daily 04/24 VIT-FE FUMARATE-FA 27309822056 No Longer Active Sasha Tan APRN Active CHANTIX STARTING MONTH DANILO 0.5 MG X 11 & 1 MG X 42 ORAL TABLET take as directed VARENICLINE TARTRATE 91119054221 No Longer Active Sasha Tan APRN Active CHANTIX 1 MG ORAL TABLET 1 twice a day to help quit smoking 04/24 VARENICLINE TARTRATE 12514910620 No Longer Active Sasha Tan APRN Active OMEPRAZOLE 20 MG ORAL CAPSULE DELAYED RELEASE 1 tablet by mouth daily OMEPRAZOLE 56727993673 Active Sasha Tan APRN Active FLINSTONES GUMMIES OMEGA-3 DHA ORAL TABLET CHEWABLE 2 gummies per day PEDIATRIC MULTIPLE VIT-C-FA 61813465258 Active Sasha Tan APRN Active CLINDAMYCIN HCL 150 MG ORAL CAPSULE 1 four times a day for 1 week CLINDAMYCIN HCL 60054241528 No Longer Active Karen Jaramillo MD Active TRIAMCINOLONE ACETONIDE 0.1 % EXTERNAL CREAM Apply to affected areas TID for up to 1 week TRIAMCINOLONE ACETONIDE 24751575288 No Longer Active Rian Ortega MD Active ZITHROMAX 1 GM ORAL PACKET Take 1 time and recheck lab in 2-3 weeks AZITHROMYCIN 14432935864 No Longer Active Rian Ortega MD Active FLAGYL 500 MG ORAL TABLET four tabs PO x 1 METRONIDAZOLE 38852215122 No Longer Active Aris Charlton MD Active FLAGYL 500 MG ORAL TABLET four tabs PO x 1 FLAGYL 500 MG ORAL TABLET 283159 METRONIDAZOLE Inactive ZITHROMAX 1 GM ORAL PACKET Take 1 time and recheck lab in 2-3 weeks ZITHROMAX 1 GM ORAL PACKET 576803 AZITHROMYCIN Inactive TRIAMCINOLONE ACETONIDE 0.1 % EXTERNAL CREAM Apply to affected areas TID for up to 1 week TRIAMCINOLONE ACETONIDE 0.1 % EXTERNAL CREAM 2667312 TRIAMCINOLONE ACETONIDE Inactive CLINDAMYCIN HCL 150 MG ORAL CAPSULE 1 four times a day for 1 week CLINDAMYCIN HCL 150 MG ORAL CAPSULE 144032 CLINDAMYCIN HCL Inactive CHANTIX 1 MG ORAL [...] per day CARAFATE 1 GM ORAL TABLET 316098 SUCRALFATE Inactive SM VITAMIN B12 TR 1000 MCG ORAL TABLET EXTENDED RELEASE 1 tab po daily 04/24 SM VITAMIN B12 TR 1000 MCG ORAL TABLET EXTENDED RELEASE CYANOCOBALAMIN Inactive CIPROFLOXACIN HCL 250 MG ORAL TABLET 1 twice a day for bladder infection 2016 CIPROFLOXACIN HCL 250 MG ORAL TABLET 448608 CIPROFLOXACIN HCL Inactive AZO TABS TABLET 2 tabs qd AZO TABS TABLET PHENAZOPYRIDINE HCL TABS Inactive SYMBICORT 160-4.5 MCG/ACT INHALATION AEROSOL 2 puff BID for 10 days SYMBICORT 160-4.5 MCG/ACT INHALATION AEROSOL BUDESONIDE- FORMOTEROL FUMARATE Inactive CYCLOBENZAPRINE HCL 10 MG ORAL TABLET 1 three times a day as needed for muscle spasm CYCLOBENZAPRINE HCL 10 MG ORAL TABLET 827837 CYCLOBENZAPRINE HCL Inactive GUAIFENESIN ER 600 MG ORAL TABLET EXTENDED RELEASE 12 HOUR 1 twice a day as needed for congestion GUAIFENESIN ER 600 MG ORAL TABLET EXTENDED RELEASE 12 HOUR GUAIFENESIN Inactive BACTRIM DS 800-160 MG ORAL TABLET 1 twice a day BACTRIM DS 800-160 MG ORAL TABLET 692001 SULFAMETHOXAZOLE-TRIMETHOPRIM Inactive CIPRO 500 MG ORAL TABLET 1 tablet by mouth twice daily CIPRO 500 MG ORAL TABLET 489124 CIPROFLOXACIN HCL Inactive AZITHROMYCIN 250 MG ORAL TABLET 2 po qd x 1 day, then 1 po qd x 4 days 02/15 AZITHROMYCIN 250 MG ORAL TABLET 453455 AZITHROMYCIN Inactive AZITHROMYCIN 250 MG ORAL TABLET 2 po qd x 1 day, then 1 po qd x 4 days 07/27 AZITHROMYCIN 250 MG ORAL TABLET 567302 AZITHROMYCIN Inactive ZITHROMAX Z-DANILO 250 MG ORAL TABLET 2 today, then 1 daily for 4 days ZITHROMAX Z-DANILO 250 MG ORAL TABLET 799078 AZITHROMYCIN Inactive Immunizations Vaccine Administration Date Value [...] - Hematology leukocyte count, blood sent to [facility] 10^3/mm^3 10*3/mm3 4.6-10.2 Lab Report: CBC, Lipid Panel, Thyroid Stimulating Hormone (L), Free Thyr ... - Chemistry cholesterol, serum 142 mg/dL 831-611 2603/10/24 triglyceride, serum, fasting 77 mg/dL 30-200 HDL [...] Panel - Chemistry sodium, serum 137 mmol/L 090-593 2963/10/24 carbon dioxide, venous blood 24.4 mmol/L 21.0-32.0 [...] 1+ Encounters Code Encounter Date Provider Facility CPT-65413 Level 3 Est. Patient 14:41:20 CDT Tariq Marrero MD [facility] CPT-61272 Level 3 Est. Patient 11:06:09 ITALIAN LECTURER Carline Best [facility] CPT-19803 Level 3 Est. Patient 15:59:13 ITALIAN LECTURER Carline Best [facility] CPT-55578 Employment/ICC Exam 15:03:09 ITALIAN LECTURER Sasha Tan [facility] CPT-96236 Level 3 Est. Patient 11:54:40 CDT Rian Ortega MD [facility] CPT-74761 Level 3 Est. Patient 11:17:51 CDT Carline Best [facility] CPT-05438 Level 3 Est. Patient 15:43:38 CDT Tariq Marrero MD [facility] CPT-60878 Level 3 Est. Patient 11:16:27 ITALIAN LECTURER Nereyda Rodriguez [facility] CPT-32456 Level 4 Est. Patient 08:56:42 ITALIAN LECTURER Sasha Tan [facility] CPT-01531 Level 3 Est. Patient 16:40:58 CDT Rian Ortega MD [facility] CPT-91240 Level 3 Est. Patient 13:55:16 ITALIAN LECTURER Rian Ortega MD [facility] CPT-39304 Level 3 Est. Patient 10:42:52 CDT Corrina Bailon APRN [facility] CPT-64926 Level 3 Est. Patient 11:18:30 CDT Aris Charlton MD [facility] Procedures Code Procedure Name Date Entry Date Standard Description CPT-52253 Prv Med Est Pt 40-64yrs 16:49:40 CDT CPT-26204 UA w micro - LAB USE ONLY 13:09:18 ITALIAN LECTURER CPT-39993 Urine Culture - LAB USE ONLY 13:09:18 ITALIAN LECTURER CPT-80888 Wet Mount - LAB USE ONLY 11:11:39 ITALIAN LECTURER CPT-41532 Lipid - LAB USE ONLY 15:05:24 ITALIAN LECTURER CPT-80531 PT/INR - LAB USE ONLY 12:14:07 CDT CPT-49201 HGBA1C - LAB USE ONLY 12:14:07 CDT CPT-81818 CMP - LAB USE ONLY 12:14:07 CDT CPT-09367 CBC - LAB USE ONLY 12:14:07 CDT CPT-33469 Venipuncture Draw Fee 12:14:06 CDT CPT-J0702 Celestone 6 mg (Betamethasone) 15:04:45 ITALIAN LECTURER CPT-49200 Abx/Therapy Injection 15:04:45 ITALIAN LECTURER CPT-J0702 Celestone 12 mg (Betamethasone) 11:45:31 ITALIAN LECTURER CPT-21069 Visit 11:39:52 ITALIAN LECTURER CPT-87313Y Sono biophysical pro wo stress test-[place] Only 11:21: 42 ITALIAN LECTURER CPT-51334 Visit 16:00:50 ITALIAN LECTURER CPT-78726L [employer] pro wo stress test-[place] Only 13:12: 18 ITALIAN LECTURER CPT-51044 Sono biophysical pro wo stress test 11:17:21 ITALIAN LECTURER 05/21 CPT-18958 Tdap 7yrs or > 15:22:51 ITALIAN LECTURER CPT-92117 Immunization Single Admin 15:22:51 ITALIAN LECTURER CPT-91311 Tdap 7yrs or > 15:09:13 ITALIAN LECTURER CPT-39609 Visit 14:54:16 ITALIAN LECTURER CPT-52599 Fluzone Quadrivalent Intramuscular Suspension 0.5 ML 16: 58:58 CDT CPT-89317 Administration single or combination vaccine inc oral 16 :58:58 CDT CPT-64160 Fluzone Thim Free 36mo and older 14:47:39 CDT CPT-53464 Visit 14:47:39 CDT CPT-03355 Sono OB limited 10:30:07 CDT CPT-83818 Visit 10:04:44 CDT CPT-52761 Sono OB comp > 14 weeks 12:50:41 CDT CPT-15981 Visit 12:06:25 CDT CPT-06060 Visit 12:43:15 CDT CPT-55996 Visit 10:06:02 CDT CPT-97711 Spec Collection and Handling Fee 10:00:31 CDT CPT-50649 Visit 10:00:30 CDT CPT-32998 Drug Screen Grisel 14:36:13 CDT
--- OUTSIDE RECORDS SUMMARY | 2018-08-28 06:41 | XMS REPORT | Clinical Summary ---
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.31 Active Sasha Espitia [...] MG ORAL TABS 1 daily VIT-FE FUMARATE-FA 20345072948 No Longer Active Sasha Espitia APRN Active CHANTIX STARTING MONTH DANILO 0.5 MG X 11 & 1 MG X 42 TABS take as directed 2015 VARENICLINE TARTRATE 62574938956 No Longer Active Sasha Espitia APRN Active CHANTIX 1 MG TABS 1 twice a day to help quit smoking VARENICLINE TARTRATE 23213803998 No Longer Active Sashashante Espitia APRN Active OMEPRAZOLE 20 MG CPDR 1 tablet by mouth daily OMEPRAZOLE 25846975216 Active Sasha Espitia BETO Active CARAFATE 1 GM TAB 1 tab po as needed up to 4 times per day SUCRALFATE 49838282642 Active Sashashante Espitia APRN Active FLINSTONES GUMMIES OMEGA-3 DHA ORAL CHEW 2 gummies per day PEDIATRIC MULTIPLE VIT-C-FA 13369948751 Active Sasha Espitia BETO Active SM VITAMIN B12 TR 1000 MCG ORAL CR-TABS 1 tab po daily CYANOCOBALAMIN 03234687438 Active Sasha Omkar PÉREZ Active CLINDAMYCIN HCL 150 MG CAPS 1 four times a day for 1 week CLINDAMYCIN HCL 04595524046 No Longer Active Karen Jaramillo MD Active TRIAMCINOLONE ACETONIDE 0.1 % CREA Apply to affected areas TID for up to 1 week TRIAMCINOLONE ACETONIDE 57995407293 No Longer Active Rian Ortega MD Active ZITHROMAX 1 GM ORAL PACK Take 1 time and recheck lab in 2-3 weeks AZITHROMYCIN 98448762977 No Longer Active Rian Ortega MD Active FLAGYL 500 MG TAB four tabs PO x 1 METRONIDAZOLE 01959222882 No Longer Active Aris Charlton MD Active FLAGYL 500 MG TAB four tabs PO x 1 FLAGYL 500 MG TAB 242283 METRONIDAZOLE Inactive ZITHROMAX 1 GM ORAL PACK Take 1 time and recheck lab in 2-3 weeks ZITHROMAX 1 GM ORAL PACK 167545 AZITHROMYCIN Inactive TRIAMCINOLONE ACETONIDE 0.1 % CREA Apply to affected areas TID for up to 1 week TRIAMCINOLONE ACETONIDE 0.1 % CREA 3262907 TRIAMCINOLONE ACETONIDE Inactive CLINDAMYCIN HCL 150 MG CAPS 1 four times a day for 1 week CLINDAMYCIN HCL 150 MG CAPS 211753 CLINDAMYCIN HCL Inactive CHANTIX 1 MG TABS [...] HGBA1C - Chemistry sodium, serum 142 mmol/L 047-649 1796 carbon dioxide, venous blood 32.8 mmol/L 21.0-32.0 [...] % 11.6-14.8 platelet count 302 10^3/MM^3 10*3/mm3 577-363 7933/11/18 mean corpuscular volume, RBC 92 fL 80-97 hematocrit, blood 32.9 % 36.0-46.0 hemoglobin, blood 11.2 g/dL 12.0-16.0 erythrocyte (RBC) count 3.60 10^6/MM^3 10*6/mm3 4.04-5.48 leukocyte count, blood 11.7 10^3/MM^3 10*3/mm3 4.6-10.2 Lab Report: Lipid Panel - Chemistry cholesterol, serum 165 mg/dL 609-206 3618 triglyceride, serum, fasting 124 mg/dL 30-200 HDL [...] N Encounters Code Encounter Date Provider Facility CPT-42151 Level 4 Est. Patient 08:56:42 TETRYL WRINGER OPERATOR Sasha Espitia [facility] CPT-65410 Level 3 Est. Patient 16:40:58 CDT Rian Ortega MD [facility] CPT-18132 Level 3 Est. Patient 13:55:16 TETRYL WRINGER OPERATOR Rian [facility]ga [facility] CPT-13121 Level 3 Est. Patient 10:42:52 CDT Corrina Bailon [facility] CPT-04547 Level 3 Est. Patient 11:18:30 CDT Aris Charlton MD [facility] Procedures Code Procedure Name Date Entry Date Standard Description CPT-44986 Wet Mount - LAB USE ONLY 11:11:39 TETRYL WRINGER OPERATOR CPT-90095 Lipid - LAB USE ONLY 15:05:24 TETRYL WRINGER OPERATOR CPT-99544 PT/INR - LAB USE ONLY 12:14:07 CDT CPT-76171 HGBA1C - LAB USE ONLY 12:14:07 CDT CPT-94918 CMP - LAB USE ONLY 12:14:07 CDT CPT-40858 CBC - LAB USE ONLY 12:14:07 CDT CPT-39737 Venipuncture Draw Fee 12:14:06 CDT CPT-J0702 Celestone 6 mg (Betamethasone) 15:04:45 TETRYL WRINGER OPERATOR CPT-61475 Abx/Therapy Injection 15:04:45 TETRYL WRINGER OPERATOR CPT-J0702 Celestone 12 mg (Betamethasone) 11:45:31 TETRYL WRINGER OPERATOR CPT-43685 Visit 11:39:52 TETRYL WRINGER OPERATOR CPT-90808F Sono biophysical pro wo stress test-[place] Only 11:21: 42 TETRYL WRINGER OPERATOR CPT-23935 Visit 16:00:50 TETRYL WRINGER OPERATOR CPT-56325W [employer] biophysical pro wo stress test-[place] Only 13:12: 18 TETRYL WRINGER OPERATOR CPT-25241 Sono biophysical pro wo stress test 11:17:21 TETRYL WRINGER OPERATOR 05/21 CPT-78298 Tdap 7yrs or > 15:22:51 TETRYL WRINGER OPERATOR CPT-53471 Immunization Single Admin 15:22:51 TETRYL WRINGER OPERATOR CPT-60862 Tdap 7yrs or > 15:09:13 TETRYL WRINGER OPERATOR CPT-91921 Visit 14:54:16 TETRYL WRINGER OPERATOR CPT-75802 Fluzone Quadrivalent Intramuscular Suspension 0.5 ML 16: 58:58 CDT CPT-05620 Administration single or combination vaccine inc oral 16 :58:58 CDT CPT-75222 Fluzone Thim Free 36mo and older 14:47:39 CDT CPT-87403 Visit 14:47:39 CDT CPT-19893 Sono OB limited 10:30:07 CDT CPT-35065 Visit 10:04:44 CDT CPT-78942 Sono OB comp > 14 weeks 12:50:41 CDT CPT-71319 Visit 12:06:25 CDT CPT-15776 Visit 12:43:15 CDT CPT-85878 Visit 10:06:02 CDT CPT-62257 Spec Collection and Handling Fee 10:00:31 CDT CPT-11961 Visit 10:00:30 CDT CPT-91318 Drug Screen [place]isel 14:36:13 CDT
--- OUTSIDE RECORDS SUMMARY | 2018-08-28 06:41 | XMS REPORT | Clinical Summary ---
Author Author Admin, E Organization [facility] [employer] Address Unknown Phone Unavailable Allergies, Adverse Reactions, [...] and recheck lab in 2-3 weeks AZITHROMYCIN 00326107779 Active Carolina Mayfield LPN Active TRIAMCINOLONE ACETONIDE 0.1 % CREA Apply to affected areas TID for up to 1 week TRIAMCINOLONE ACETONIDE 71294551338 Active Aris Charlton MD Active PNV PLUS MULTIVITAMIN 27-1 MG ORAL TABS 1 daily VIT-FE FUMARATE-FA 75322247746 Active Aris Charlton MD Active FLAGYL 500 MG TAB four tabs PO x 1 METRONIDAZOLE 45450956135 No Longer Active Aris Chalrton MD Active FLAGYL 500 MG TAB four tabs PO x 1 FLAGYL 500 MG TAB 923115 METRONIDAZOLE Inactive Immunizations Vaccine Administration Date Value [...] % 11.0-15.0 platelet count 307 THOUSAND/UL 10*3/mm3 690-365 4586/05/26 mean platelet volume 8.9 fL 7.5-11.5 Blood [...] ... - Chemistry sodium, serum 137 mmol/L 598-848 6614/08/28 potassium, serum 4.3 mmol/L 3.5-5.2 chloride, serum [...] 325 10^3/MM^3 10*3/mm3 142-424 Lab Report: Chlamydia/GC APTIMA/16050 - Lab chlamydia DNA probe NOT DETECTED NOT DETECTED chlamydia DNA probe DETECTED NOT DETECTED Lab Report: Chlamydia/GC APTIMA/97825 - Microbiology Neisseria gonorrhoeae DNA probe NOT DETECTED NOT DETECTED Neisseria gonorrhoeae DNA probe NOT DETECTED NOT DETECTED Lab Report: Chlamydia/GC APTIMA/22587, HEPATITIS B S AG W/, HIV-1/2 Agn/ ... - Chemistry hepatitis B surface antigen NON-REACTIVE NON-REACTIVE Lab Report: Chlamydia/GC APTIMA/57267, HEPATITIS B S AG W/, HIV-1/2 Agn/ ... - Lab chlamydia DNA probe NOT DETECTED NOT DETECTED Lab Report: Chlamydia/GC APTIMA/84505, HEPATITIS B S AG W/, HIV-1/2 Agn/ ... - Microbiology Neisseria gonorrhoeae DNA probe NOT DETECTED NOT DETECTED Lab Report: Chlamydia/GC APTIMA/39670, HEPATITIS B S AG W/, HIV-1/2 Agn/ [...] pH, urine, semiquantitative 7.0 5.0-8.5 Lab Report: [facility] [place] Chemistry human chorionic gonadotropin, urine, qualitative [...] N Encounters Code Encounter Date Provider Facility CPT-45374 Level 3 Est. Patient 10:42:52 CDT Corrina Bailon APRN [facility] CPT-08107 Level 3 Est. Patient 11:18:30 CDT Aris Charlton MD [facility] Procedures Code Procedure Name Date Entry Date Standard Description CPT-17602 Visit 12:43:15 CDT CPT-13765 Visit 10:06:02 CDT CPT-94045 Spec Collection and Handling Fee 10:00:31 CDT CPT-40564 Visit 10:00:30 CDT CPT-07495 Drug Screen Grisel 14:36:13 CDT
--- OUTSIDE RECORDS SUMMARY | 2018-08-28 06:42 | XMS REPORT | Clinical Summary ---
Author Author Admin, E Organization [facility] Address Unknown Phone Unavailable Allergies, [...] and recheck lab in 2-3 weeks AZITHROMYCIN 57258481907 Active Carolina Mayfield LPN Active TRIAMCINOLONE ACETONIDE 0.1 % CREA Apply to affected areas TID for up to 1 week TRIAMCINOLONE ACETONIDE 47784263845 Active Aris Charlton MD Active PNV PLUS MULTIVITAMIN 27-1 MG ORAL TABS 1 daily VIT-FE FUMARATE-FA 44843506132 Active Aris Charlton MD Active FLAGYL 500 MG TAB four tabs PO x 1 METRONIDAZOLE 17309457890 No Longer Active Aris Charlton MD Active FLAGYL 500 MG TAB four tabs PO x 1 FLAGYL 500 MG TAB 342607 METRONIDAZOLE Inactive Immunizations Vaccine Administration Date Value [...] % 11.0-15.0 platelet count 307 THOUSAND/UL 10*3/mm3 433-719 3140/05/26 mean platelet volume 8.9 fL 7.5-11.5 Blood [...] antibody, serum, IgG 2.66 Lab Report: Chlamydia/GC APTIMA/25059 - Lab chlamydia DNA probe DETECTED NOT DETECTED Lab Report: Chlamydia/GC APTIMA/85897 - Microbiology Neisseria gonorrhoeae DNA probe NOT DETECTED NOT DETECTED Lab Report: HGBA1C - Chemistry hemoglobin A1C, blood, as % of total hemoglobin 5.3 % 4.3-6.0 Lab Report: Thyroid Stimulating Hormone (L), [facility] TSH 2.31 m[iU]/mL 0.36-3.74 [place] [facility] [place] human chorionic gonadotropin, urine, qualitative [...] UC Encounters Code Encounter Date Provider Facility CPT-48604 Level 3 Est. Patient 10:42:52 CDT Corrina Bailon APRN [facility] CPT-59437 Level 3 Est. Patient 11:18:30 CDT Aris Charlton MD [facility] Procedures Code Procedure Name Date Entry Date Standard Description CPT-94316 Spec Collection and Handling Fee 10:00:31 CDT CPT-62237 Visit 10:00:30 CDT CPT-71749 Drug Screen [place] 14:36:13 CDT
--- OUTSIDE RECORDS SUMMARY | 2018-08-28 06:42 | XMS REPORT | Clinical Summary ---
Author Author Admin, [facility] Organization [facility] Address Unknown Phone Unavailable Allergies, Adverse Reactions, Alerts Allergy Name Reaction Description Start Date Severity Status Provider No Known Allergies Angelica Jarrett LPN Conditions or Problems Problem Name Problem [...] day to help quit smoking VARENICLINE TARTRATE 52755603296 Active Rian Ortega MD Active CHANTIX STARTING MONTH DANILO 0.5 MG X 11 & 1 MG X 42 TABS take as directed 2015 VARENICLINE TARTRATE 04480512392 Active Rian Ortega MD Active CLINDAMYCIN HCL 150 MG CAPS 1 four times a day for 1 week CLINDAMYCIN HCL 37791401284 No Longer Active Karen Jaramillo MD Active TRIAMCINOLONE ACETONIDE 0.1 % CREA Apply to affected areas TID for up to 1 week TRIAMCINOLONE ACETONIDE 23403569305 No Longer Active Rian Ortega MD Active ZITHROMAX 1 GM ORAL PACK Take 1 time and recheck lab in 2-3 weeks AZITHROMYCIN 73137787451 No Longer Active Rian Ortega MD Active PNV PLUS MULTIVITAMIN 27-1 MG ORAL TABS 1 daily VIT-FE FUMARATE-FA 87775274234 Active Aris Charlton MD Active FLAGYL 500 MG TAB four tabs PO x 1 METRONIDAZOLE 22136643932 No Longer Active Aris Charlton MD Active FLAGYL 500 MG TAB four tabs PO x 1 FLAGYL 500 MG TAB 879093 METRONIDAZOLE Inactive ZITHROMAX 1 GM ORAL PACK Take 1 time and recheck lab in 2-3 weeks ZITHROMAX 1 GM ORAL PACK 029148 AZITHROMYCIN Inactive TRIAMCINOLONE ACETONIDE 0.1 % CREA Apply to affected areas TID for up to 1 week TRIAMCINOLONE ACETONIDE 0.1 % CREA 7252248 TRIAMCINOLONE ACETONIDE Inactive CLINDAMYCIN HCL 150 MG CAPS 1 four times a day for 1 week CLINDAMYCIN HCL 150 MG CAPS 935174 CLINDAMYCIN HCL Inactive Immunizations Vaccine Administration Date [...] ... - Chemistry sodium, serum 137 mmol/L 176-665 5819/08/28 potassium, serum 4.3 mmol/L 3.5-5.2 chloride, serum [...] 302 10^3/MM^3 10*3/mm3 142-424 Lab Report: Chlamydia/GC APTIMA/67410 - Lab chlamydia DNA probe NOT DETECTED NOT DETECTED chlamydia DNA probe NOT DETECTED NOT DETECTED chlamydia DNA probe DETECTED NOT DETECTED Lab Report: Chlamydia/GC APTIMA/02777 - Microbiology Neisseria gonorrhoeae DNA probe NOT DETECTED NOT DETECTED Neisseria gonorrhoeae DNA probe NOT DETECTED NOT DETECTED Neisseria gonorrhoeae DNA probe NOT DETECTED NOT DETECTED Lab Report: Chlamydia/GC APTIMA/74526, HEPATITIS B S AG W/, HIV-1/2 Agn/ ... - Chemistry hepatitis B surface antigen NON-REACTIVE NON-REACTIVE Lab Report: Chlamydia/GC APTIMA/93419, HEPATITIS B S AG W/, HIV-1/2 Agn/ ... - Lab chlamydia DNA probe NOT DETECTED NOT DETECTED Lab Report: Chlamydia/GC APTIMA/04216, HEPATITIS B S AG W/, HIV-1/2 Agn/ ... - Microbiology Neisseria gonorrhoeae DNA probe NOT DETECTED NOT DETECTED Lab Report: Chlamydia/GC APTIMA/34237, HEPATITIS B S AG W/, HIV-1/2 Agn/ [...] N Encounters Code Encounter Date Provider Facility CPT-94538 Level 3 Est. Patient 16:40:58 CDT Rian Ortega MD [facility] CPT-93718 Level 3 Est. Patient 13:55:16 RN SOCIAL SERVICES Rian Ortega MD [facility] CPT-26105 Level 3 Est. Patient 10:42:52 CDT Corrina Angelesvalentine PÉREZ [facility] CPT-41258 Level 3 Est. Patient 11:18:30 CDT Aris Charlton MD [facility] Procedures Code Procedure Name Date Entry Date Standard Description CPT-J0702 Celestone 6 mg (Betamethasone) 15:04:45 RN SOCIAL SERVICES CPT-73096 Abx/Therapy Injection 15:04:45 RN SOCIAL SERVICES CPT-J0702 Celestone 12 mg (Betamethasone) 11:45:31 RN SOCIAL SERVICES CPT-75647 Visit 11:39:52 RN SOCIAL SERVICES CPT-17510Y Sono bi[employer] pro wo stress test-[place] Only 11:21: 42 RN SOCIAL SERVICES CPT-09565 Visit 16:00:50 RN SOCIAL SERVICES CPT-91286E [employer] biophysical pro wo stress test-[place] Only 13:12: 18 RN SOCIAL SERVICES CPT-99048 [employer]o biophysical pro wo stress test 11:17:21 RN SOCIAL SERVICES 05/21 CPT-77133 Tdap 7yrs or > 15:22:51 RN SOCIAL SERVICES CPT-41946 Immunization Single Admin 15:22:51 RN SOCIAL SERVICES CPT-20843 Tdap 7yrs or > 15:09:13 RN SOCIAL SERVICES CPT-65913 Visit 14:54:16 RN SOCIAL SERVICES CPT-77261 Fluzone Quadrivalent Intramuscular Suspension 0.5 ML 16: 58:58 CDT CPT-69557 Administration single or combination vaccine inc oral 16 :58:58 CDT CPT-34419 Fluzone Thim Free 36mo and older 14:47:39 CDT CPT-23417 Visit 14:47:39 CDT CPT-75165 Sono OB limited 10:30:07 CDT CPT-37330 Visit 10:04:44 CDT CPT-88339 Sono OB comp > 14 weeks 12:50:41 CDT CPT-21761 Visit 12:06:25 CDT CPT-12249 Visit 12:43:15 CDT CPT-38049 Visit 10:06:02 CDT CPT-31157 Spec Collection and Handling Fee 10:00:31 CDT CPT-30397 Visit 10:00:30 CDT CPT-50907 Drug Screen [place] 14:36:13 CDT
--- OUTSIDE RECORDS SUMMARY | 2018-08-28 06:42 | XMS REPORT | Clinical Summary ---
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 Bronchitis, not specified as acute or chronic Supervision high risk , third trimester ICD-V23.9 [...] weeks gestation of ICD-V28.9 Inactive Deepika RITCHIE Health examination of defined subpopulations ICD-V70.5 Inactive Karen Jaramillo MD Medication List Medication Instructions Start Date Stop Date Generic Name NDC Status Provider Patient Instruction GUAIFENESIN 600 MG [id number] 1 twice a day as needed for congestion GUAIFENESIN 35099507905 Active Carline Best APRN Active SYMBICORT 160-4.5 MCG/ACT AERO 2 puff BID for 10 days BUDESONIDE-FORMOTEROL FUMARATE 26968228048 Active Carline Best APRN Active AZITHROMYCIN 250 MG TABS 2 po qd x 1 day, then 1 po qd x 4 days AZITHROMYCIN 93557612766 Active Carline Best APRN Active CIPRO 500 MG TAB 1 tablet by mouth twice daily CIPROFLOXACIN HCL 76334464782 No Longer Active Tariq Marrero MD Active AZO TABS TABS 2 tabs qd PHENAZOPYRIDINE HCL TABS 70858007096 No Longer Active Tariq Marrero MD Active CIPROFLOXACIN HCL 250 MG ORAL TABS 1 twice a day for bladder infection 07/24 CIPROFLOXACIN HCL 50066369923 No Longer Active Tariq Marrero MD Active SM VITAMIN B12 TR 1000 MCG ORAL CR-TABS 1 tab po daily CYANOCOBALAMIN 96675555258 No Longer Active Nereyda Rodriguez APRN Active CARAFATE 1 GM TAB 1 tab po as needed up to 4 times per day SUCRALFATE 45079897955 No Longer Active Nereyda Rodriguez APRN Active PNV PLUS MULTIVITAMIN 27-1 MG ORAL TABS 1 daily VIT-FE FUMARATE-FA 80574576738 No Longer Active Sasha Espitia APRN Active CHANTIX STARTING MONTH DANILO 0.5 MG X 11 & 1 MG X 42 TABS take as directed 2015 VARENICLINE TARTRATE 81604087911 No Longer Active Sasha Espitia APRN Active CHANTIX 1 MG TABS 1 twice a day to help quit smoking VARENICLINE TARTRATE 92480577425 No Longer Active Sasha Espitia APRN Active OMEPRAZOLE 20 MG CPDR 1 tablet by mouth daily OMEPRAZOLE 38431662643 Active Sasha Espitia APRN Active FLINSTONES GUMMIES OMEGA-3 DHA ORAL CHEW 2 gummies per day PEDIATRIC MULTIPLE VIT-C-FA 69630757862 Active Sasha Espitia APRN Active CLINDAMYCIN HCL 150 MG CAPS 1 four times a day for 1 week CLINDAMYCIN HCL 76998090916 No Longer Active Karen Jaramillo MD Active TRIAMCINOLONE ACETONIDE 0.1 % CREA Apply to affected areas TID for up to 1 week TRIAMCINOLONE ACETONIDE 55638318704 No Longer Active Rian Ortega MD Active ZITHROMAX 1 GM ORAL PACK Take 1 time and recheck lab in 2-3 weeks AZITHROMYCIN 45694822357 No Longer Active Rian Ortega MD Active FLAGYL 500 MG TAB four tabs PO x 1 METRONIDAZOLE 60259901987 No Longer Active Aris Charlton MD Active FLAGYL 500 MG TAB four tabs PO x 1 FLAGYL 500 MG TAB 950378 METRONIDAZOLE Inactive ZITHROMAX 1 GM ORAL PACK Take 1 time and recheck lab in 2-3 weeks ZITHROMAX 1 GM ORAL PACK 785335 AZITHROMYCIN Inactive TRIAMCINOLONE ACETONIDE 0.1 % CREA Apply to affected areas TID for up to 1 week TRIAMCINOLONE ACETONIDE 0.1 % CREA 0562156 TRIAMCINOLONE ACETONIDE Inactive CLINDAMYCIN HCL 150 MG CAPS 1 four times a day for 1 week CLINDAMYCIN HCL 150 MG CAPS 832434 CLINDAMYCIN HCL Inactive CHANTIX 1 MG TABS [...] per day 06/27 CARAFATE 1 GM TAB 424809 SUCRALFATE Inactive SM VITAMIN B12 TR 1000 MCG ORAL CR-TABS 1 tab po daily SM VITAMIN B12 TR 1000 MCG ORAL CR-TABS CYANOCOBALAMIN Inactive CIPROFLOXACIN HCL 250 MG ORAL TABS 1 twice a day for bladder infection 07/24 CIPROFLOXACIN HCL 250 MG ORAL TABS 182074 CIPROFLOXACIN HCL Inactive AZO TABS TABS 2 tabs qd AZO TABS TABS PHENAZOPYRIDINE HCL TABS Inactive CIPRO 500 MG TAB 1 tablet by mouth twice daily CIPRO 500 MG TAB 739769 CIPROFLOXACIN HCL Inactive Immunizations Vaccine Administration Date [...] Description Lab Report: CBC, Comp. Metabolic Panel, [facility] - Chemistry sodium, serum 142 mmol/L [phone] carbon dioxide, venous blood 32.8 mmol/L 21.0-32.0 [...] CBC, Comp. Metabolic Panel, BA1C - Hematology hemoglobin, blood 12.3 g/dL 12.0-16.0 [...] Panel - Chemistry cholesterol, serum 165 mg/dL [phone] triglyceride, serum, fasting 124 mg/dL 30-200 HDL [...] 30-100 Encounters Code Encounter Date Provider Facility CPT-15687 Level 3 Est. Patient 11:17:51 CDT Carline Best APRN [facility] CPT-60022 Level 3 Est. Patient 15:43:38 CDT Tariq Marrero MD [facility] CPT-31550 Level 3 Est. Patient 11:16:27 TIN STACKER Nereyda Michael [facility] CPT-56300 Level 4 Est. Patient 08:56:42 TIN STACKER Sasha Espitia [facility] CPT-77203 Level 3 Est. Patient 16:40:58 CDT Rian Ortega MD [facility] CPT-07331 Level 3 Est. Patient 13:55:16 TIN STACKER Rian Ortega MD [facility] CPT-54106 Level 3 Est. Patient 10:42:52 CDT Corrina Angelesvalentine [facility] CPT-63612 Level 3 Est. Patient 11:18:30 CDT Aris Charlton MD [facility] Procedures Code Procedure Name Date Entry Date Standard Description CPT-76926 UA w micro - LAB USE ONLY 13:09:18 TIN STACKER CPT-16074 Urine Culture - LAB USE ONLY 13:09:18 TIN STACKER CPT-44886 Wet Mount - LAB USE ONLY 11:11:39 TIN STACKER CPT-06413 Lipid - LAB USE ONLY 15:05:24 TIN STACKER CPT-94904 PT/INR - LAB USE ONLY 12:14:07 CDT CPT-07484 HGBA1C - LAB USE ONLY 12:14:07 CDT CPT-13361 CMP - LAB USE ONLY 12:14:07 CDT CPT-48288 CBC - LAB USE ONLY 12:14:07 CDT CPT-53066 Venipuncture Draw Fee 12:14:06 CDT CPT-J0702 Celestone 6 mg (Betamethasone) 15:04:45 TIN STACKER CPT-57095 Abx/Therapy Injection 15:04:45 TIN STACKER CPT-J0702 Celestone 12 mg (Betamethasone) 11:45:31 TIN STACKER CPT-05630 Visit 11:39:52 TIN STACKER CPT-23493K Sono biophysical pro wo stress test-[place] Only 11:21: 42 TIN STACKER CPT-52313 Visit 16:00:50 TIN STACKER CPT-26775I Sono biophysical pro wo stress test-[facility] 13:12: 18 TIN STACKER CPT-65022 Sono biophysical pro wo stress test 11:17:21 TIN STACKER 05/21 CPT-58717 Tdap 7yrs or > 15:22:51 TIN STACKER CPT-74401 Immunization Single Admin 15:22:51 TIN STACKER CPT-94121 Tdap 7yrs or > 15:09:13 TIN STACKER CPT-51791 Visit 14:54:16 TIN STACKER CPT-83639 Fluzone Quadrivalent Intramuscular Suspension 0.5 ML 16: 58:58 CDT CPT-97420 Administration single or combination vaccine inc oral 16 :58:58 CDT CPT-73674 Fluzone Thim Free 36mo and older 14:47:39 CDT CPT-97796 Visit 14:47:39 CDT CPT-35455 Sono OB limited 10:30:07 CDT CPT-69481 Visit 10:04:44 CDT CPT-16104 Sono OB comp > 14 weeks 12:50:41 CDT CPT-03046 Visit 12:06:25 CDT CPT-41280 Visit 12:43:15 CDT CPT-25994 Visit 10:06:02 CDT CPT-34156 Spec Collection and Handling Fee 10:00:31 CDT CPT-21513 Visit 10:00:30 CDT CPT-50010 Drug Screen Grisel 14:36:13 CDT
--- OUTSIDE RECORDS SUMMARY | 2018-08-28 06:43 | XMS REPORT | Clinical Summary ---
Author Author Admin, E Organization [facility] Address Unknown Phone Unavailable Allergies, [...] mother 28 weeks gestation of V28.9 Resolved iRan Ortega MD Encounter for unspecified screening of [...] Active Rian Ortega MD Tobacco use disorder Bottle Capper well woman exam V72.31 Active Sasha Espitia [...] tablet by mouth twice daily CIPROFLOXACIN HCL 11327372705 No Longer Active Tariq Marrero MD Active AZO TABS TABS 2 tabs qd PHENAZOPYRIDINE HCL TABS 11622730716 No Longer Active Tariq Marrero MD Active CIPROFLOXACIN HCL 250 MG ORAL TABS 1 twice a day for bladder infection 07/24 CIPROFLOXACIN HCL 80389330343 No Longer Active Tariq Marrero MD Active SM VITAMIN B12 TR 1000 MCG ORAL CR-TABS 1 tab po daily CYANOCOBALAMIN 80015273973 No Longer Active Nereyda Rodirguez APRN Active CARAFATE 1 GM TAB 1 tab po as needed up to 4 times per day SUCRALFATE 03977243337 No Longer Active Nereyda Rodriguez APRN Active PNV PLUS MULTIVITAMIN 27-1 MG ORAL TABS 1 daily VIT-FE FUMARATE-FA 30276139030 No Longer Active Sasha Espitia APRN Active CHANTIX STARTING MONTH DANILO 0.5 MG X 11 & 1 MG X 42 TABS take as directed 2015 VARENICLINE TARTRATE 74926175873 No Longer Active Sasha Espitia APRN Active CHANTIX 1 MG TABS 1 twice a day to help quit smoking VARENICLINE TARTRATE 23132942682 No Longer Active Sasha Espitia APRN Active OMEPRAZOLE 20 MG CPDR 1 tablet by mouth daily OMEPRAZOLE 71668819609 Active Sasha Espitia APRN Active FLINSTONES GUMMIES OMEGA-3 DHA ORAL CHEW 2 gummies per day PEDIATRIC MULTIPLE VIT-C-FA 27529333003 Active Sasha Espitia APRN Active CLINDAMYCIN HCL 150 MG CAPS 1 four times a day for 1 week CLINDAMYCIN HCL 77308106034 No Longer Active Karen Jaramillo MD Active TRIAMCINOLONE ACETONIDE 0.1 % CREA Apply to affected areas TID for up to 1 week TRIAMCINOLONE ACETONIDE 35361069083 No Longer Active Rian Ortega MD Active ZITHROMAX 1 GM ORAL PACK Take 1 time and recheck lab in 2-3 weeks AZITHROMYCIN 71356345726 No Longer Active Rian Ortega MD Active FLAGYL 500 MG TAB four tabs PO x 1 METRONIDAZOLE 38794959556 No Longer Active Aris Charlton MD Active FLAGYL 500 MG TAB four tabs PO x 1 FLAGYL 500 MG TAB 758117 METRONIDAZOLE Inactive ZITHROMAX 1 GM ORAL PACK Take 1 time and recheck lab in 2-3 weeks ZITHROMAX 1 GM ORAL PACK 524666 AZITHROMYCIN Inactive TRIAMCINOLONE ACETONIDE 0.1 % CREA Apply to affected areas TID for up to 1 week TRIAMCINOLONE ACETONIDE 0.1 % CREA 5560968 TRIAMCINOLONE ACETONIDE Inactive CLINDAMYCIN HCL 150 MG CAPS 1 four times a day for 1 week CLINDAMYCIN HCL 150 MG CAPS 879632 CLINDAMYCIN HCL Inactive CHANTIX 1 MG TABS [...] per day 06/27 CARAFATE 1 GM TAB 536755 SUCRALFATE Inactive SM VITAMIN B12 TR 1000 [...] mouth twice daily CIPRO 500 MG TAB 627002 CIPROFLOXACIN HCL Inactive Immunizations Vaccine Administration Date [...] HGBA1C - Chemistry sodium, serum 142 mmol/L [phone] carbon dioxide, venous blood 32.8 mmol/L 21.0-32.0 [...] Panel - Chemistry cholesterol, serum 165 mg/dL [phone] triglyceride, serum, fasting 124 mg/dL 30-200 HDL [...] 30-100 Encounters Code Encounter Date Provider Facility CPT-10757 Level 3 Est. Patient 15:43:38 CDT Tariq Marrero MD [facility] CPT-92654 Level 3 Est. Patient 11:16:27 WATERPROOFER HELPER Nereyda Rodriguez APRN [facility] CPT-01812 Level 4 Est. Patient 08:56:42 WATERPROOFER HELPER Sasha Espitia [facility] CPT-10742 Level 3 Est. Patient 16:40:58 CDT Rian Ortega MD [facility] CPT-65480 Level 3 Est. Patient 13:55:16 WATERPROOFER HELPER Rian Ortega MD [facility] CPT-14366 Level 3 Est. Patient 10:42:52 CDT Corrina Bailon [facility] CPT-14142 Level 3 Est. Patient 11:18:30 CDT Aris Charlton MD [facility] Procedures Code Procedure Name Date Entry Date Standard Description CPT-63718 UA w micro - LAB USE ONLY 13:09:18 WATERPROOFER HELPER CPT-49718 Urine Culture - LAB USE ONLY 13:09:18 WATERPROOFER HELPER CPT-98336 Wet Mount - LAB USE ONLY 11:11:39 WATERPROOFER HELPER CPT-14504 Lipid - LAB USE ONLY 15:05:24 WATERPROOFER HELPER CPT-95708 PT/INR - LAB USE ONLY 12:14:07 CDT CPT-49573 HGBA1C - LAB USE ONLY 12:14:07 CDT CPT-63578 CMP - LAB USE ONLY 12:14:07 CDT CPT-76396 CBC - LAB USE ONLY 12:14:07 CDT CPT-84824 Venipuncture Draw Fee 12:14:06 CDT CPT-J0702 Celestone 6 mg (Betamethasone) 15:04:45 WATERPROOFER HELPER CPT-69029 Abx/Therapy Injection 15:04:45 WATERPROOFER HELPER CPT-J0702 Celestone 12 mg (Betamethasone) 11:45:31 WATERPROOFER HELPER CPT-07034 Visit 11:39:52 WATERPROOFER HELPER CPT-23559W Sono biophysical pro wo stress test-[place] Only 11:21: 42 WATERPROOFER HELPER CPT-52026 Visit 16:00:50 WATERPROOFER HELPER CPT-93677M Sono biophysical pro wo stress test-[place] Only 13:12: 18 WATERPROOFER HELPER CPT-37200 Sono biophysical pro wo stress test 11:17:21 WATERPROOFER HELPER 05/21 CPT-82425 Tdap 7yrs or > 15:22:51 WATERPROOFER HELPER CPT-36237 Immunization Single Admin 15:22:51 WATERPROOFER HELPER CPT-99346 Tdap 7yrs or > 15:09:13 WATERPROOFER HELPER CPT-54036 Visit 14:54:16 WATERPROOFER HELPER CPT-01605 Fluzone Quadrivalent Intramuscular Suspension 0.5 ML 16: 58:58 CDT CPT-65704 Administration single or combination vaccine inc oral 16 :58:58 CDT CPT-66853 Fluzone Thim Free 36mo and older 14:47:39 CDT CPT-08270 Visit 14:47:39 CDT CPT-72484 Sono OB limited 10:30:07 CDT CPT-94616 Visit 10:04:44 CDT CPT-95269 Sono OB comp > 14 weeks 12:50:41 CDT CPT-10723 Visit 12:06:25 CDT CPT-96932 Visit 12:43:15 CDT CPT-15350 Visit 10:06:02 CDT CPT-99770 Spec Collection and Handling Fee 10:00:31 CDT CPT-53895 Visit 10:00:30 CDT CPT-46632 Drug Screen Grisel 14:36:13 CDT
--- OUTSIDE RECORDS SUMMARY | 2018-08-28 06:43 | XMS REPORT | Clinical Summary ---
Author Author Admin, E Organization [facility] [employer] Address Unknown Phone Unavailable Allergies, Adverse Reactions, [...] Active Rian Ortega MD Tobacco use disorder Gasket Former well woman exam V72.31 Active Sasha Espitia APRN Routine gynecological examination Bariatric operative procedure V45.86 Active Marielykomal HARVEY Bariatric surgery status Physical examination V70.0 [...] day for bladder infection 07/24 CIPROFLOXACIN HCL 66139039669 Active Nereyda Rodriguez APRN Active AZO TABS TABS 2 tabs qd PHENAZOPYRIDINE HCL TABS 93784793574 Active Nereyda Rodriguez APRN Active SM VITAMIN B12 TR 1000 MCG ORAL CR-TABS 1 tab po daily CYANOCOBALAMIN 02117109867 No Longer Active Nereyda Rodriguez APRN Active CARAFATE 1 GM TAB 1 tab po as needed up to 4 times per day SUCRALFATE 43868813571 No Longer Active Nereyda Rodriguez APRN Active PNV PLUS MULTIVITAMIN 27-1 MG ORAL TABS 1 daily VIT-FE FUMARATE-FA 57378656184 No Longer Active Sasha Espitia APRN Active CHANTIX STARTING MONTH DANILO 0.5 MG X 11 & 1 MG X 42 TABS take as directed 2015 VARENICLINE TARTRATE 16368985322 No Longer Active Sasha Espitia APRN Active CHANTIX 1 MG TABS 1 twice a day to help quit smoking VARENICLINE TARTRATE 20982212708 No Longer Active Sasha Espitia APRN Active OMEPRAZOLE 20 MG CPDR 1 tablet by mouth daily OMEPRAZOLE 31741504964 Active Sasha Espitia APRN Active FLINSTONES GUMMIES OMEGA-3 DHA ORAL CHEW 2 gummies per day PEDIATRIC MULTIPLE VIT-C-FA 26117948731 Active Sasha Espitia APRN Active CLINDAMYCIN HCL 150 MG CAPS 1 four times a day for 1 week CLINDAMYCIN HCL 54350488159 No Longer Active Karen Jaramillo MD Active TRIAMCINOLONE ACETONIDE 0.1 % CREA Apply to affected areas TID for up to 1 week TRIAMCINOLONE ACETONIDE 49932089633 No Longer Active Rian Ortega MD Active ZITHROMAX 1 GM ORAL PACK Take 1 time and recheck lab in 2-3 weeks AZITHROMYCIN 93725412809 No Longer Active Rian Ortega MD Active FLAGYL 500 MG TAB four tabs PO x 1 METRONIDAZOLE 15681357905 No Longer Active Aris Charlton MD Active FLAGYL 500 MG TAB four tabs PO x 1 FLAGYL 500 MG TAB 561507 METRONIDAZOLE Inactive ZITHROMAX 1 GM ORAL PACK Take 1 time and recheck lab in 2-3 weeks ZITHROMAX 1 GM ORAL PACK 841420 AZITHROMYCIN Inactive TRIAMCINOLONE ACETONIDE 0.1 % CREA Apply to affected areas TID for up to 1 week TRIAMCINOLONE ACETONIDE 0.1 % CREA 2095343 TRIAMCINOLONE ACETONIDE Inactive CLINDAMYCIN HCL 150 MG CAPS 1 four times a day for 1 week CLINDAMYCIN HCL 150 MG CAPS 102411 CLINDAMYCIN HCL Inactive CHANTIX 1 MG TABS [...] per day 06/27 CARAFATE 1 GM TAB 800174 SUCRALFATE Inactive SM VITAMIN B12 TR 1000 [...] HGBA1C - Chemistry sodium, serum 142 mmol/L [phone] carbon dioxide, venous blood 32.8 mmol/L 21.0-32.0 [...] Panel - Chemistry cholesterol, serum 165 mg/dL [phone] triglyceride, serum, fasting 124 mg/dL 30-200 HDL [...] 30-100 Encounters Code Encounter Date Provider Facility CPT-80040 Level 3 Est. Patient 11:16:27 PROCUREMENT ACCOUNTANT Nereyda Rodriguez [facility] CPT-16725 Level 4 Est. Patient 08:56:42 PROCUREMENT ACCOUNTANT Sasha Espitia [facility] CPT-67969 Level 3 Est. Patient 16:40:58 CDT Rian Ortega MD [facility] CPT-06082 Level 3 Est. Patient 13:55:16 PROCUREMENT ACCOUNTANT Rian Ortega MD [facility] CPT-12670 Level 3 Est. Patient 10:42:52 CDT Corrina Bailon [facility] CPT-70701 Level 3 Est. Patient 11:18:30 CDT Aris Charlton MD [facility] Procedures Code Procedure Name Date Entry Date Standard Description CPT-16910 UA w micro - LAB USE ONLY 13:09:18 PROCUREMENT ACCOUNTANT CPT-10295 Urine Culture - LAB USE ONLY 13:09:18 PROCUREMENT ACCOUNTANT CPT-89780 Wet Mount - LAB USE ONLY 11:11:39 PROCUREMENT ACCOUNTANT CPT-73650 Lipid - LAB USE ONLY 15:05:24 PROCUREMENT ACCOUNTANT CPT-12258 PT/INR - LAB USE ONLY 12:14:07 CDT CPT-95556 HGBA1C - LAB USE ONLY 12:14:07 CDT CPT-47420 CMP - LAB USE ONLY 12:14:07 CDT CPT-75332 CBC - LAB USE ONLY 12:14:07 CDT CPT-28220 Venipuncture Draw Fee 12:14:06 CDT CPT-J0702 Celestone 6 mg (Betamethasone) 15:04:45 PROCUREMENT ACCOUNTANT CPT-96698 Abx/Therapy Injection 15:04:45 PROCUREMENT ACCOUNTANT CPT-J0702 Celestone 12 mg (Betamethasone) 11:45:31 PROCUREMENT ACCOUNTANT CPT-75000 Visit 11:39:52 PROCUREMENT ACCOUNTANT CPT-68314W Sono biophysical pro wo stress test-[facility] 11:21: 42 PROCUREMENT ACCOUNTANT CPT-13800 Visit 16:00:50 PROCUREMENT ACCOUNTANT CPT-28740D Sono biophysical pro wo stress test-[facility] 13:12: 18 PROCUREMENT ACCOUNTANT CPT-50086 Sono biophysical pro wo stress test 11:17:21 PROCUREMENT ACCOUNTANT 05/21 CPT-16298 Tdap 7yrs or > 15:22:51 PROCUREMENT ACCOUNTANT CPT-74035 Immunization Single Admin 15:22:51 PROCUREMENT ACCOUNTANT CPT-86284 Tdap 7yrs or > 15:09:13 PROCUREMENT ACCOUNTANT CPT-89781 Visit 14:54:16 PROCUREMENT ACCOUNTANT CPT-66238 Fluzone Quadrivalent Intramuscular Suspension 0.5 ML 16: 58:58 CDT CPT-57017 Administration single or combination vaccine inc oral 16 :58:58 CDT CPT-22496 Fluzone Thim Free 36mo and older 14:47:39 CDT CPT-54054 Visit 14:47:39 CDT CPT-52615 Sono OB limited 10:30:07 CDT CPT-43422 Visit 10:04:44 CDT CPT-89395 Sono OB comp > 14 weeks 12:50:41 CDT CPT-39097 Visit 12:06:25 CDT CPT-54184 Visit 12:43:15 CDT CPT-74278 Visit 10:06:02 CDT CPT-62603 Spec Collection and Handling Fee 10:00:31 CDT CPT-00910 Visit 10:00:30 CDT CPT-58985 Drug Screen Grisel 14:36:13 CDT
--- OUTSIDE RECORDS SUMMARY | 2018-08-28 06:44 | XMS REPORT | Clinical Summary ---
Author Author Admin, E Organization [facility] Address Unknown Phone Unavailable Allergies, Adverse Reactions, [...] Active Rian Ortega MD Tobacco use disorder Rn International well woman exam V72.31 Active Sasha Tan [...] ORAL TABLET 1 twice a day SULFAMETHOXAZOLE-TRIMETHOPRIM 09699160190 No Longer Active Irma Michaels Active ZITHROMAX Z-DANILO 250 MG ORAL TABLET 2 today, then 1 daily for 4 days AZITHROMYCIN 20737654619 No Longer Active Mahsa Alvarez Active AZITHROMYCIN 250 MG ORAL TABLET 2 po qd x 1 day, then 1 po qd x 4 days 07/27 AZITHROMYCIN 13212549042 No Longer Active Carline Best APRN Active GUAIFENESIN ER 600 MG ORAL TABLET EXTENDED RELEASE 12 HOUR 1 twice a day as needed for congestion GUAIFENESIN 39766764897 No Longer Active Sasha Tan APRN Active CYCLOBENZAPRINE HCL 10 MG ORAL TABLET 1 three times a day as needed for muscle spasm CYCLOBENZAPRINE HCL 29667168588 No Longer Active Sasha Tan APRN Active SYMBICORT 160-4.5 MCG/ACT INHALATION AEROSOL 2 puff BID for 10 days BUDESONIDE-FORMOTEROL FUMARATE 60870495433 No Longer Active Rian Ortega MD Active AZITHROMYCIN 250 MG ORAL TABLET 2 po qd x 1 day, then 1 po qd x 4 days 02/15 AZITHROMYCIN 25643880808 No Longer Active Carline Best APRN Active CIPRO 500 MG ORAL TABLET 1 tablet by mouth twice daily CIPROFLOXACIN HCL 98850029266 No Longer Active Tariq Marrero MD Active AZO TABS TABLET 2 tabs qd PHENAZOPYRIDINE HCL TABS 42833749581 No Longer Active Tariq Marrero MD Active CIPROFLOXACIN HCL 250 MG ORAL TABLET 1 twice a day for bladder infection 2016 CIPROFLOXACIN HCL 47172828507 No Longer Active Tariq Marrero MD Active SM VITAMIN B12 TR 1000 MCG ORAL TABLET EXTENDED RELEASE 1 tab po daily 04/24 CYANOCOBALAMIN 03607370724 No Longer Active Nereyda Rodriguez APRN Active CARAFATE 1 GM ORAL TABLET 1 tab po as needed up to 4 times per day SUCRALFATE 39817240200 No Longer Active Nereyda Rodriguez APRN Active PNV PLUS MULTIVITAMIN 27-1 MG ORAL TABLET 1 daily 04/24 VIT-FE FUMARATE-FA 55308653881 No Longer Active Sasha Tan APRN Active CHANTIX STARTING MONTH DANILO 0.5 MG X 11 & 1 MG X 42 ORAL TABLET take as directed VARENICLINE TARTRATE 80411747391 No Longer Active Sasha Tan APRN Active CHANTIX 1 MG ORAL TABLET 1 twice a day to help quit smoking 04/24 VARENICLINE TARTRATE 54492804221 No Longer Active Sasha Tan APRN Active OMEPRAZOLE 20 MG ORAL CAPSULE DELAYED RELEASE 1 tablet by mouth daily OMEPRAZOLE 66144412769 Active Sasha Tan APRN Active FLINSTONES GUMMIES OMEGA-3 DHA ORAL TABLET CHEWABLE 2 gummies per day PEDIATRIC MULTIPLE VIT-C-FA 88798914129 Active Sasha Tan APRN Active CLINDAMYCIN HCL 150 MG ORAL CAPSULE 1 four times a day for 1 week CLINDAMYCIN HCL 66951714927 No Longer Active Karen Jaramillo MD Active TRIAMCINOLONE ACETONIDE 0.1 % EXTERNAL CREAM Apply to affected areas TID for up to 1 week TRIAMCINOLONE ACETONIDE 80459093587 No Longer Active Rian Ortega MD Active ZITHROMAX 1 GM ORAL PACKET Take 1 time and recheck lab in 2-3 weeks AZITHROMYCIN 08139426777 No Longer Active Rian Ortega MD Active FLAGYL 500 MG ORAL TABLET four tabs PO x 1 METRONIDAZOLE 93051316542 No Longer Active Aris Charlton MD Active FLAGYL 500 MG ORAL TABLET four tabs PO x 1 FLAGYL 500 MG ORAL TABLET 142953 METRONIDAZOLE Inactive ZITHROMAX 1 GM ORAL PACKET Take 1 time and recheck lab in 2-3 weeks ZITHROMAX 1 GM ORAL PACKET 430106 AZITHROMYCIN Inactive TRIAMCINOLONE ACETONIDE 0.1 % EXTERNAL CREAM Apply to affected areas TID for up to 1 week TRIAMCINOLONE ACETONIDE 0.1 % EXTERNAL CREAM 9651092 TRIAMCINOLONE ACETONIDE Inactive CLINDAMYCIN HCL 150 MG ORAL CAPSULE 1 four times a day for 1 week CLINDAMYCIN HCL 150 MG ORAL CAPSULE 030365 CLINDAMYCIN HCL Inactive CHANTIX 1 MG ORAL [...] per day CARAFATE 1 GM ORAL TABLET 634657 SUCRALFATE Inactive SM VITAMIN B12 TR 1000 MCG ORAL TABLET EXTENDED RELEASE 1 tab po daily 04/24 SM VITAMIN B12 TR 1000 MCG ORAL TABLET EXTENDED RELEASE CYANOCOBALAMIN Inactive CIPROFLOXACIN HCL 250 MG ORAL TABLET 1 twice a day for bladder infection 2016 CIPROFLOXACIN HCL 250 MG ORAL TABLET 952579 CIPROFLOXACIN HCL Inactive AZO TABS TABLET 2 tabs qd AZO TABS TABLET PHENAZOPYRIDINE HCL TABS Inactive SYMBICORT 160-4.5 MCG/ACT INHALATION AEROSOL 2 puff BID for 10 days SYMBICORT 160-4.5 MCG/ACT INHALATION AEROSOL BUDESONIDE- FORMOTEROL FUMARATE Inactive CYCLOBENZAPRINE HCL 10 MG ORAL TABLET 1 three times a day as needed for muscle spasm CYCLOBENZAPRINE HCL 10 MG ORAL TABLET 582150 CYCLOBENZAPRINE HCL Inactive GUAIFENESIN ER 600 MG ORAL TABLET EXTENDED RELEASE 12 HOUR 1 twice a day as needed for congestion GUAIFENESIN ER 600 MG ORAL TABLET EXTENDED RELEASE 12 HOUR GUAIFENESIN Inactive BACTRIM DS 800-160 MG ORAL TABLET 1 twice a day BACTRIM DS 800-160 MG ORAL TABLET 036936 SULFAMETHOXAZOLE-TRIMETHOPRIM Inactive CIPRO 500 MG ORAL TABLET 1 tablet by mouth twice daily CIPRO 500 MG ORAL TABLET 822933 CIPROFLOXACIN HCL Inactive AZITHROMYCIN 250 MG ORAL TABLET 2 po qd x 1 day, then 1 po qd x 4 days 02/15 AZITHROMYCIN 250 MG ORAL TABLET 422093 AZITHROMYCIN Inactive AZITHROMYCIN 250 MG ORAL TABLET 2 po qd x 1 day, then 1 po qd x 4 days 07/27 AZITHROMYCIN 250 MG ORAL TABLET 916748 AZITHROMYCIN Inactive ZITHROMAX Z-DANILO 250 MG ORAL TABLET 2 today, then 1 daily for 4 days ZITHROMAX Z-DANILO 250 MG ORAL TABLET 610404 AZITHROMYCIN Inactive Immunizations Vaccine Administration Date Value [...] leukocyte count, blood sent to [facility] 10^3/mm^3 10*3/mm3 4.6-10.2 Lab Report: CBC, Lipid Panel, Thyroid Stimulating Hormone (L), Free Thyr ... - Chemistry cholesterol, serum 142 mg/dL 082-739 1348/10/24 triglyceride, serum, fasting 77 mg/dL 30-200 HDL [...] Panel - Chemistry sodium, serum 137 mmol/L 165-617 1099/10/24 carbon dioxide, venous blood 24.4 mmol/L 21.0-32.0 [...] 1+ Encounters Code Encounter Date Provider Facility CPT-25110 Level 3 Est. Patient 14:41:20 CDT Tariq Marrero MD [facility] CPT-45250 Level 3 Est. Patient 11:06:09 REGIONAL DRIVER Carline Best [facility] CPT-40183 Level 3 Est. Patient 15:59:13 REGIONAL DRIVER Carline Best [facility] CPT-01366 Employment/ICC Exam 15:03:09 REGIONAL DRIVER Sasha Tan [facility] CPT-74260 Level 3 Est. Patient 11:54:40 CDT Rian Ortega MD [facility] CPT-03855 Level 3 Est. Patient 11:17:51 CDT Carline Best [facility] CPT-58834 Level 3 Est. Patient 15:43:38 CDT Tariq Marrero MD [facility] CPT-10141 Level 3 Est. Patient 11:16:27 REGIONAL DRIVER Nereyda Rodriguez [facility] CPT-63140 Level 4 Est. Patient 08:56:42 REGIONAL DRIVER Sasha Tan [facility] CPT-48466 Level 3 Est. Patient 16:40:58 CDT Rian Ortega MD [facility] CPT-53281 Level 3 Est. Patient 13:55:16 REGIONAL DRIVER Rian Ortega MD [facility] CPT-69336 Level 3 Est. Patient 10:42:52 CDT Corrina Bailon APRN [facility] CPT-91653 Level 3 Est. Patient 11:18:30 CDT Aris Charlton MD [facility] Procedures Code Procedure Name Date Entry Date Standard Description CPT-15606 Prv Med Est Pt 40-64yrs 16:49:40 CDT CPT-10523 UA w micro - LAB USE ONLY 13:09:18 REGIONAL DRIVER CPT-10468 Urine Culture - LAB USE ONLY 13:09:18 REGIONAL DRIVER CPT-44709 Wet Mount - LAB USE ONLY 11:11:39 REGIONAL DRIVER CPT-71367 Lipid - LAB USE ONLY 15:05:24 REGIONAL DRIVER CPT-61514 PT/INR - LAB USE ONLY 12:14:07 CDT CPT-62989 HGBA1C - LAB USE ONLY 12:14:07 CDT CPT-36384 CMP - LAB USE ONLY 12:14:07 CDT CPT-10362 CBC - LAB USE ONLY 12:14:07 CDT CPT-50682 Venipuncture Draw Fee 12:14:06 CDT CPT-J0702 Celestone 6 mg (Betamethasone) 15:04:45 REGIONAL DRIVER CPT-35840 Abx/Therapy Injection 15:04:45 REGIONAL DRIVER CPT-J0702 Celestone 12 mg (Betamethasone) 11:45:31 REGIONAL DRIVER CPT-86063 Visit 11:39:52 REGIONAL DRIVER CPT-59283A Sono biophysical pro wo stress test-[place] Only 11:21: 42 REGIONAL DRIVER CPT-01915 Visit 16:00:50 REGIONAL DRIVER CPT-20593Q Sono biophysical pro wo stress test-[place] Only 13:12: 18 REGIONAL DRIVER CPT-79957 Sono biophysical pro wo stress test 11:17:21 REGIONAL DRIVER 05/21 CPT-92549 Tdap 7yrs or > 15:22:51 REGIONAL DRIVER CPT-84490 Immunization Single Admin 15:22:51 REGIONAL DRIVER CPT-41442 Tdap 7yrs or > 15:09:13 REGIONAL DRIVER CPT-79447 Visit 14:54:16 REGIONAL DRIVER CPT-50738 Fluzone Quadrivalent Intramuscular Suspension 0.5 ML 16: 58:58 CDT CPT-25062 Administration single or combination vaccine inc oral 16 :58:58 CDT CPT-88846 Fluzone Thim Free 36mo and older 14:47:39 CDT CPT-02646 Visit 14:47:39 CDT CPT-74430 Sono OB limited 10:30:07 CDT CPT-18422 Visit 10:04:44 CDT CPT-49716 Sono OB comp > 14 weeks 12:50:41 CDT CPT-14299 Visit 12:06:25 CDT CPT-27147 Visit 12:43:15 CDT CPT-32205 Visit 10:06:02 CDT CPT-68719 Spec Collection and Handling Fee 10:00:31 CDT CPT-18048 Visit 10:00:30 CDT CPT-47530 Drug Screen Grisel 14:36:13 CDT
--- OUTSIDE RECORDS SUMMARY | 2018-08-28 06:45 | XMS REPORT | Clinical Summary ---
Author Author Admin, [facility] Organization [facility] Address Unknown Phone Unavailable Allergies, Adverse [...] 30 weeks gestation of V28.9 Inactive Depeika LRT Encounter for unspecified screening of mother 31 weeks gestation of V28.9 Inactive Deepika LRT Encounter for unspecified screening of mother Morbid obesity 278.01 Resolved Rian Ortega MD Morbid obesity Obstructive sleep apnea 327.23 Active Rian Ortega MD Obstructive sleep apnea (adult) (pediatric) Cigarette smoker 305.1 Active Rian Ortega MD Tobacco use disorder Process Project Engineer well woman exam V72.31 Active Sasha Espitia [...] po qd x 4 days 07/27 AZITHROMYCIN 58683876520 Active Carline Best APRN Active GUAIFENESIN ER 600 MG ORAL TABLET EXTENDED RELEASE 12 HOUR 1 twice a day as needed for congestion GUAIFENESIN 50699325995 No Longer Active Sasha Espitia APRN Active CYCLOBENZAPRINE HCL 10 MG ORAL TABLET 1 three times a day as needed for muscle spasm CYCLOBENZAPRINE HCL 09448692442 No Longer Active Sasha Espitia APRN Active SYMBICORT 160-4.5 MCG/ACT INHALATION AEROSOL 2 puff BID for 10 days BUDESONIDE-FORMOTEROL FUMARATE 25059967772 No Longer Active Rian Ortega MD Active AZITHROMYCIN 250 MG ORAL TABLET 2 po qd x 1 day, then 1 po qd x 4 days 02/15 AZITHROMYCIN 43736666618 No Longer Active Carline Best APRN Active CIPRO 500 MG ORAL TABLET 1 tablet by mouth twice daily CIPROFLOXACIN HCL 60830505251 No Longer Active Tariq Marrero MD Active AZO TABS TABLET 2 tabs qd PHENAZOPYRIDINE HCL TABS 14159101019 No Longer Active Tariq Marrero MD Active CIPROFLOXACIN HCL 250 MG ORAL TABLET 1 twice a day for bladder infection 2016 CIPROFLOXACIN HCL 84943249980 No Longer Active Tariq Marrero MD Active SM VITAMIN B12 TR 1000 MCG ORAL TABLET EXTENDED RELEASE 1 tab po daily 04/24 CYANOCOBALAMIN 31098669643 No Longer Active Nereyda Rodriguez APRN Active CARAFATE 1 GM ORAL TABLET 1 tab po as needed up to 4 times per day SUCRALFATE 97587441590 No Longer Active Nereyda Rodriguez APRN Active PNV PLUS MULTIVITAMIN 27-1 MG ORAL TABLET 1 daily 04/24 VIT-FE FUMARATE-FA 73146759818 No Longer Active Sasha Espitia APRN Active CHANTIX STARTING MONTH DANILO 0.5 MG X 11 & 1 MG X 42 ORAL TABLET take as directed VARENICLINE TARTRATE 58426796042 No Longer Active Sasha Espitia APRN Active CHANTIX 1 MG ORAL TABLET 1 twice a day to help quit smoking 04/24 VARENICLINE TARTRATE 85060057413 No Longer Active Sasha Espitia APRN Active OMEPRAZOLE 20 MG ORAL CAPSULE DELAYED RELEASE 1 tablet by mouth daily OMEPRAZOLE 43082231837 Active Sasha Espitia APRN Active FLINSTONES GUMMIES OMEGA-3 DHA ORAL TABLET CHEWABLE 2 gummies per day PEDIATRIC MULTIPLE VIT-C-FA 33574459674 Active Sasha Espitia APRN Active CLINDAMYCIN HCL 150 MG ORAL CAPSULE 1 four times a day for 1 week CLINDAMYCIN HCL 67055901303 No Longer Active Karen Jaramillo MD Active TRIAMCINOLONE ACETONIDE 0.1 % EXTERNAL CREAM Apply to affected areas TID for up to 1 week TRIAMCINOLONE ACETONIDE 87535409132 No Longer Active Rian Ortega MD Active ZITHROMAX 1 GM ORAL PACKET Take 1 time and recheck lab in 2-3 weeks AZITHROMYCIN 33448614145 No Longer Active Rian Ortega MD Active FLAGYL 500 MG ORAL TABLET four tabs PO x 1 METRONIDAZOLE 38601435105 No Longer Active Aris Charlton MD Active FLAGYL 500 MG ORAL TABLET four tabs PO x 1 FLAGYL 500 MG ORAL TABLET 437665 METRONIDAZOLE Inactive ZITHROMAX 1 GM ORAL PACKET Take 1 time and recheck lab in 2-3 weeks ZITHROMAX 1 GM ORAL PACKET 936157 AZITHROMYCIN Inactive TRIAMCINOLONE ACETONIDE 0.1 % EXTERNAL CREAM Apply to affected areas TID for up to 1 week TRIAMCINOLONE ACETONIDE 0.1 % EXTERNAL CREAM 5092187 TRIAMCINOLONE ACETONIDE Inactive CLINDAMYCIN HCL 150 MG ORAL CAPSULE 1 four times a day for 1 week CLINDAMYCIN HCL 150 MG ORAL CAPSULE 275860 CLINDAMYCIN HCL Inactive CHANTIX 1 MG ORAL [...] per day CARAFATE 1 GM ORAL TABLET 088304 SUCRALFATE Inactive SM VITAMIN B12 TR 1000 MCG ORAL TABLET EXTENDED RELEASE 1 tab po daily 04/24 SM VITAMIN B12 TR 1000 MCG ORAL TABLET EXTENDED RELEASE CYANOCOBALAMIN Inactive CIPROFLOXACIN HCL 250 MG ORAL TABLET 1 twice a day for bladder infection 2016 CIPROFLOXACIN HCL 250 MG ORAL TABLET 392805 CIPROFLOXACIN HCL Inactive AZO TABS TABLET 2 tabs qd AZO TABS TABLET PHENAZOPYRIDINE HCL TABS Inactive SYMBICORT 160-4.5 MCG/ACT INHALATION AEROSOL 2 puff BID for 10 days SYMBICORT 160-4.5 MCG/ACT INHALATION AEROSOL BUDESONIDE- FORMOTEROL FUMARATE Inactive CYCLOBENZAPRINE HCL 10 MG ORAL TABLET 1 three times a day as needed for muscle spasm CYCLOBENZAPRINE HCL 10 MG ORAL TABLET 407073 CYCLOBENZAPRINE HCL Inactive GUAIFENESIN ER 600 MG ORAL TABLET EXTENDED RELEASE 12 HOUR 1 twice a day as needed for congestion GUAIFENESIN ER 600 MG ORAL TABLET EXTENDED RELEASE 12 HOUR GUAIFENESIN Inactive CIPRO 500 MG ORAL TABLET 1 tablet by mouth twice daily CIPRO 500 MG ORAL TABLET 245956 CIPROFLOXACIN HCL Inactive AZITHROMYCIN 250 MG ORAL TABLET 2 po qd x 1 day, then 1 po qd x 4 days 02/15 AZITHROMYCIN 250 MG ORAL TABLET 996652 AZITHROMYCIN Inactive Immunizations Vaccine Administration Date Value [...] ... - Chemistry cholesterol, serum 142 mg/dL 539-684 1011/10/24 triglyceride, serum, fasting 77 mg/dL 30-200 HDL [...] Panel - Chemistry sodium, serum 137 mmol/L 293-082 3106/10/24 carbon dioxide, venous blood 24.4 mmol/L 21.0-32.0 [...] Negative;Positive Encounters Code Encounter Date Provider Facility CPT-08301 Level 3 Est. Patient 11:06:09 DESTATICIZER FEEDER Carline Best APRN [facility] CPT-48201 Level 3 Est. Patient 15:59:13 DESTATICIZER FEEDER Carline Best [facility] CPT-54386 Employment/ICC Exam 15:03:09 DESTATICIZER FEEDER Sasha Espitia [facility] CPT-06487 Level 3 Est. Patient 11:54:40 CDT Rian Ortega MD [facility] CPT-07772 Level 3 Est. Patient 11:17:51 CDT Carline Best [facility] CPT-78030 Level 3 Est. Patient 15:43:38 CDT Tariq Marrero MD [facility] CPT-63434 Level 3 Est. Patient 11:16:27 DESTATICIZER FEEDER Nereyda Rodriguez [facility] CPT-65840 Level 4 Est. Patient 08:56:42 DESTATICIZER FEEDER Sasha Espitia [facility] CPT-78641 Level 3 Est. Patient 16:40:58 CDT Rian Ortega MD [facility] CPT-56173 Level 3 Est. Patient 13:55:16 DESTATICIZER FEEDER Rian Ortega MD [facility] CPT-60474 Level 3 Est. Patient 10:42:52 CDT Corrina Bailon [facility] CPT-40996 Level 3 Est. Patient 11:18:30 CDT Aris Charlton MD [facility] Procedures Code Procedure Name Date Entry Date Standard Description CPT-88804 UA w micro - LAB USE ONLY 13:09:18 DESTATICIZER FEEDER CPT-32175 Urine Culture - LAB USE ONLY 13:09:18 DESTATICIZER FEEDER CPT-92423 Wet Mount - LAB USE ONLY 11:11:39 DESTATICIZER FEEDER CPT-72713 Lipid - LAB USE ONLY 15:05:24 DESTATICIZER FEEDER CPT-99608 PT/INR - LAB USE ONLY 12:14:07 CDT CPT-72483 HGBA1C - LAB USE ONLY 12:14:07 CDT CPT-75748 CMP - LAB USE ONLY 12:14:07 CDT CPT-49218 CBC - LAB USE ONLY 12:14:07 CDT CPT-17608 Venipuncture Draw Fee 12:14:06 CDT CPT-J0702 Celestone 6 mg (Betamethasone) 15:04:45 DESTATICIZER FEEDER CPT-04602 Abx/Therapy Injection 15:04:45 DESTATICIZER FEEDER CPT-J0702 Celestone 12 mg (Betamethasone) 11:45:31 DESTATICIZER FEEDER CPT-60222 Visit 11:39:52 DESTATICIZER FEEDER CPT-88183U Sono biophysical pro wo stress test-[place] Only 11:21: 42 DESTATICIZER FEEDER CPT-15662 Visit 16:00:50 DESTATICIZER FEEDER CPT-18326B Sono biophysical pro wo stress test[facility] 13:12: 18 DESTATICIZER FEEDER CPT-47083 Sono biophysical pro wo stress test 11:17:21 DESTATICIZER FEEDER 05/21 CPT-96158 Tdap 7yrs or > 15:22:51 DESTATICIZER FEEDER CPT-44082 Immunization Single Admin 15:22:51 DESTATICIZER FEEDER CPT-21467 Tdap 7yrs or > 15:09:13 DESTATICIZER FEEDER CPT-94325 Visit 14:54:16 DESTATICIZER FEEDER CPT-69047 Fluzone Quadrivalent Intramuscular Suspension 0.5 ML 16: 58:58 CDT CPT-65483 Administration single or combination vaccine inc oral 16 :58:58 CDT CPT-69516 Fluzone Thim Free 36mo and older 14:47:39 CDT CPT-21594 Visit 14:47:39 CDT CPT-60088 Sono OB limited 10:30:07 CDT CPT-07797 Visit 10:04:44 CDT CPT-02218 Sono OB comp > 14 weeks 12:50:41 CDT CPT-39817 Visit 12:06:25 CDT CPT-62388 Visit 12:43:15 CDT CPT-11434 Visit 10:06:02 CDT CPT-32693 Spec Collection and Handling Fee 10:00:31 CDT CPT-07249 Visit 10:00:30 CDT CPT-59092 Drug Screen Grisel 14:36:13 CDT
--- OUTSIDE RECORDS SUMMARY | 2018-08-28 06:45 | XMS REPORT | Clinical Summary ---
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 V72.31 Active Sasha Tan [...] 30 weeks gestation of ICD-V28.9 Inactive Deepika Alavrez LRT 31 weeks gestation of ICD-V28.9 Inactive Deepika MCQUEENT Morbid obesity ICD-278.01 Inactive Rian Ortega MD Dysuria ICD-788.1 Inactive Rian Ortega MD 03/29 Bronchitis ICD-490 Inactive Rian Ortega MD 2016 Myalgias ICD-729.1 Inactive Tariq Marrero MD Medication List Medication Instructions Start Date Stop Date Generic Name NDC Status Provider Patient Instruction BACTRIM DS 800-160 MG ORAL TABLET 1 twice a day SULFAMETHOXAZOLE-TRIMETHOPRIM 12303502505 No Longer Active Irma Michaels Active ZITHROMAX Z-DANILO 250 MG ORAL TABLET 2 today, then 1 daily for 4 days AZITHROMYCIN 99487106136 No Longer Active Mahsa Alvarez Active AZITHROMYCIN 250 MG ORAL TABLET 2 po qd x 1 day, then 1 po qd x 4 days 07/27 AZITHROMYCIN 56495783428 No Longer Active Carline Best APRN Active GUAIFENESIN ER 600 MG ORAL TABLET EXTENDED RELEASE 12 HOUR 1 twice a day as needed for congestion GUAIFENESIN 10113512480 No Longer Active Sasha Tan APRN Active CYCLOBENZAPRINE HCL 10 MG ORAL TABLET 1 three times a day as needed for muscle spasm CYCLOBENZAPRINE HCL 17534714668 No Longer Active Sasha Tan APRN Active SYMBICORT 160-4.5 MCG/ACT INHALATION AEROSOL 2 puff BID for 10 days BUDESONIDE-FORMOTEROL FUMARATE 75697352946 No Longer Active Rian Ortega MD Active AZITHROMYCIN 250 MG ORAL TABLET 2 po qd x 1 day, then 1 po qd x 4 days 02/15 AZITHROMYCIN 75865746456 No Longer Active Carline Best APRN Active CIPRO 500 MG ORAL TABLET 1 tablet by mouth twice daily CIPROFLOXACIN HCL 52511922874 No Longer Active Tariq Marrero MD Active AZO TABS TABLET 2 tabs qd PHENAZOPYRIDINE HCL TABS 16267680649 No Longer Active Tariq aMrrero MD Active CIPROFLOXACIN HCL 250 MG ORAL TABLET 1 twice a day for bladder infection 2016 CIPROFLOXACIN HCL 70938999389 No Longer Active Tariq Marrero MD Active SM VITAMIN B12 TR 1000 MCG ORAL TABLET EXTENDED RELEASE 1 tab po daily 04/24 CYANOCOBALAMIN 62454175558 No Longer Active Nereyda Rodriguez APRN Active CARAFATE 1 GM ORAL TABLET 1 tab po as needed up to 4 times per day SUCRALFATE 89533494869 No Longer Active Nereyda Rodriguez APRN Active PNV PLUS MULTIVITAMIN 27-1 MG ORAL TABLET 1 daily 04/24 VIT-FE FUMARATE-FA 55784237976 No Longer Active Sasha Tan APRN Active CHANTIX STARTING MONTH DANILO 0.5 MG X 11 & 1 MG X 42 ORAL TABLET take as directed VARENICLINE TARTRATE 92013833066 No Longer Active Sasha Tan APRN Active CHANTIX 1 MG ORAL TABLET 1 twice a day to help quit smoking 04/24 VARENICLINE TARTRATE 30132628895 No Longer Active Sasha Tan APRN Active OMEPRAZOLE 20 MG ORAL CAPSULE DELAYED RELEASE 1 tablet by mouth daily OMEPRAZOLE 29469263029 Active Sasha Tan APRN Active FLINSTONES GUMMIES OMEGA-3 DHA ORAL TABLET CHEWABLE 2 gummies per day PEDIATRIC MULTIPLE VIT-C-FA 10220626948 Active Sasha Tan APRN Active CLINDAMYCIN HCL 150 MG ORAL CAPSULE 1 four times a day for 1 week CLINDAMYCIN HCL 50211226081 No Longer Active Karen Jaramillo MD Active TRIAMCINOLONE ACETONIDE 0.1 % EXTERNAL CREAM Apply to affected areas TID for up to 1 week TRIAMCINOLONE ACETONIDE 22876880462 No Longer Active Rian Ortega MD Active ZITHROMAX 1 GM ORAL PACKET Take 1 time and recheck lab in 2-3 weeks AZITHROMYCIN 13454882873 No Longer Active Rian Ortega MD Active FLAGYL 500 MG ORAL TABLET four tabs PO x 1 METRONIDAZOLE 58193689283 No Longer Active Aris Charlton MD Active FLAGYL 500 MG ORAL TABLET four tabs PO x 1 FLAGYL 500 MG ORAL TABLET 649310 METRONIDAZOLE Inactive ZITHROMAX 1 GM ORAL PACKET Take 1 time and recheck lab in 2-3 weeks ZITHROMAX 1 GM ORAL PACKET 764050 AZITHROMYCIN Inactive TRIAMCINOLONE ACETONIDE 0.1 % EXTERNAL CREAM Apply to affected areas TID for up to 1 week TRIAMCINOLONE ACETONIDE 0.1 % EXTERNAL CREAM 3692242 TRIAMCINOLONE ACETONIDE Inactive CLINDAMYCIN HCL 150 MG ORAL CAPSULE 1 four times a day for 1 week CLINDAMYCIN HCL 150 MG ORAL CAPSULE 993416 CLINDAMYCIN HCL Inactive CHANTIX 1 MG ORAL [...] per day CARAFATE 1 GM ORAL TABLET 351754 SUCRALFATE Inactive SM VITAMIN B12 TR 1000 MCG ORAL TABLET EXTENDED RELEASE 1 tab po daily 04/24 SM VITAMIN B12 TR 1000 MCG ORAL TABLET EXTENDED RELEASE CYANOCOBALAMIN Inactive CIPROFLOXACIN HCL 250 MG ORAL TABLET 1 twice a day for bladder infection 2016 CIPROFLOXACIN HCL 250 MG ORAL TABLET 375721 CIPROFLOXACIN HCL Inactive AZO TABS TABLET 2 tabs qd AZO TABS TABLET PHENAZOPYRIDINE HCL TABS Inactive SYMBICORT 160-4.5 MCG/ACT INHALATION AEROSOL 2 puff BID for 10 days SYMBICORT 160-4.5 MCG/ACT INHALATION AEROSOL BUDESONIDE- FORMOTEROL FUMARATE Inactive CYCLOBENZAPRINE HCL 10 MG ORAL TABLET 1 three times a day as needed for muscle spasm CYCLOBENZAPRINE HCL 10 MG ORAL TABLET 709587 CYCLOBENZAPRINE HCL Inactive GUAIFENESIN ER 600 MG ORAL TABLET EXTENDED RELEASE 12 HOUR 1 twice a day as needed for congestion GUAIFENESIN ER 600 MG ORAL TABLET EXTENDED RELEASE 12 HOUR GUAIFENESIN Inactive BACTRIM DS 800-160 MG ORAL TABLET 1 twice a day BACTRIM DS 800-160 MG ORAL TABLET 973197 SULFAMETHOXAZOLE-TRIMETHOPRIM Inactive CIPRO 500 MG ORAL TABLET 1 tablet by mouth twice daily CIPRO 500 MG ORAL TABLET 644832 CIPROFLOXACIN HCL Inactive AZITHROMYCIN 250 MG ORAL TABLET 2 po qd x 1 day, then 1 po qd x 4 days 02/15 AZITHROMYCIN 250 MG ORAL TABLET 865710 AZITHROMYCIN Inactive AZITHROMYCIN 250 MG ORAL TABLET 2 po qd x 1 day, then 1 po qd x 4 days 07/27 AZITHROMYCIN 250 MG ORAL TABLET 176628 AZITHROMYCIN Inactive ZITHROMAX Z-DANILO 250 MG ORAL TABLET 2 today, then 1 daily for 4 days ZITHROMAX Z-DANILO 250 MG ORAL TABLET 358191 AZITHROMYCIN Inactive Immunizations Vaccine Administration Date Value [...] - Hematology leukocyte count, blood sent to [facility] 10^3/mm^3 10*3/mm3 4.6-10.2 Lab Report: CBC, Lipid Panel, Thyroid Stimulating Hormone (L), Free Thyr ... - Chemistry cholesterol, serum 142 mg/dL [phone]/10/24 triglyceride, serum, fasting 77 mg/dL 30-200 HDL [...] Panel - Chemistry sodium, serum 137 mmol/L 296-974 9206/10/24 carbon dioxide, venous blood 24.4 mmol/L 21.0-32.0 [...] 1+ Encounters Code Encounter Date Provider Facility CPT-73545 Level 3 Est. Patient 14:41:20 CDT Tariq Marrero MD [facility] CPT-36438 Level 3 Est. Patient 11:06:09 UTILITY TENDER CARDING Carline Best [facility] [place] 2] CPT-93142 Level 3 Est. Patient 15:59:13 UTILITY TENDER CARDING Carline Best [facility] [place][note 2] CPT-31011 Employment/ICC Exam 15:03:09 UTILITY TENDER CARDING Sasha Tan [facility] [place][note 2] CPT-97169 Level 3 Est. Patient 11:54:40 CDT Rian Ortega MD [facility] CPT-52319 Level 3 Est. Patient 11:17:51 CDT Carline Best [facility] [place][note 2] CPT-72147 Level 3 Est. Patient 15:43:38 CDT Tariq Marrero MD [facility] CPT-51777 Level 3 Est. Patient 11:16:27 UTILITY TENDER CARDING Nereyda Rodriguez [facility] [place][note 2] CPT-55732 Level 4 Est. Patient 08:56:42 UTILITY TENDER CARDING Sasha Tan [facility] [place][note 2] CPT-25521 Level 3 Est. Patient 16:40:58 CDT Rian Ortega MD [facility] CPT-27549 Level 3 Est. Patient 13:55:16 UTILITY TENDER CARDING Rian Ortega MD [facility] CPT-10226 Level 3 Est. Patient 10:42:52 CDT Corrina Bailon APRN [facility] CPT-80505 Level 3 Est. Patient 11:18:30 CDT Aris Charlton MD [facility] Procedures Code Procedure Name Date Entry Date Standard Description CPT-31260 Prv Med Est Pt 40-64yrs 16:49:40 CDT CPT-87561 UA w micro - LAB USE ONLY 13:09:18 UTILITY TENDER CARDING CPT-07744 Urine Culture - LAB USE ONLY 13:09:18 UTILITY TENDER CARDING CPT-23424 Wet Mount - LAB USE ONLY 11:11:39 UTILITY TENDER CARDING CPT-10292 Lipid - LAB USE ONLY 15:05:24 UTILITY TENDER CARDING CPT-27813 PT/INR - LAB USE ONLY 12:14:07 CDT CPT-70816 HGBA1C - LAB USE ONLY 12:14:07 CDT CPT-69302 CMP - LAB USE ONLY 12:14:07 CDT CPT-86879 CBC - LAB USE ONLY 12:14:07 CDT CPT-14728 Venipuncture Draw Fee 12:14:06 CDT CPT-J0702 Celestone 6 mg (Betamethasone) 15:04:45 UTILITY TENDER CARDING CPT-00469 Abx/Therapy Injection 15:04:45 UTILITY TENDER CARDING CPT-J0702 Celestone 12 mg (Betamethasone) 11:45:31 UTILITY TENDER CARDING CPT-54078 Visit 11:39:52 UTILITY TENDER CARDING CPT-23015D Sono biophysical pro wo stress test-[place] Only 11:21: 42 UTILITY TENDER CARDING CPT-80880 Visit 16:00:50 UTILITY TENDER CARDING CPT-55970O Sono biophysical pro wo stress test-[facility] 13:12: 18 UTILITY TENDER CARDING CPT-78693 Sono biophysical pro wo stress test 11:17:21 UTILITY TENDER CARDING 05/21 CPT-66289 Tdap 7yrs or > 15:22:51 UTILITY TENDER CARDING CPT-93121 Immunization Single Admin 15:22:51 UTILITY TENDER CARDING CPT-89456 Tdap 7yrs or > 15:09:13 UTILITY TENDER CARDING CPT-23528 Visit 14:54:16 UTILITY TENDER CARDING CPT-32961 Fluzone Quadrivalent Intramuscular Suspension 0.5 ML 16: 58:58 CDT CPT-85432 Administration single or combination vaccine inc oral 16 :58:58 CDT CPT-66273 Fluzone Thim Free 36mo and older 14:47:39 CDT CPT-65236 Visit 14:47:39 CDT CPT-63870 Sono OB limited 10:30:07 CDT CPT-89073 Visit 10:04:44 CDT CPT-45182 Sono OB comp > 14 weeks 12:50:41 CDT CPT-64005 Visit 12:06:25 CDT CPT-92194 Visit 12:43:15 CDT CPT-04813 Visit 10:06:02 CDT CPT-49638 Spec Collection and Handling Fee 10:00:31 CDT CPT-54582 Visit 10:00:30 CDT CPT-62124 Drug Screen Grisel 14:36:13 CDT
--- OUTSIDE RECORDS SUMMARY | 2018-08-28 06:46 | XMS REPORT | Clinical Summary ---
Author Author Admin, [facility] Organization 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 Sasha Espitia SCREEN MAKER Routine gynecological examination Bariatric operative procedure V45.86 [...] MG ORAL TABS 1 daily VIT-FE FUMARATE-FA 88110504983 No Longer Active Sasha Espitia APRN Active CHANTIX STARTING MONTH DANILO 0.5 MG X 11 & 1 MG X 42 TABS take as directed 2015 VARENICLINE TARTRATE 93818748060 No Longer Active Sasha Espitia APRN Active CHANTIX 1 MG TABS 1 twice a day to help quit smoking VARENICLINE TARTRATE 65542624642 No Longer Active Sasha Espitia APRN Active OMEPRAZOLE 20 MG CPDR 1 tablet by mouth daily OMEPRAZOLE 14384115025 Active Sasha Omkar PÉREZ Active CARAFATE 1 GM TAB 1 tab po as needed up to 4 times per day SUCRALFATE 40324355241 Active Sasha Espitia BETO Active FLINSTONES GUMMIES OMEGA-3 DHA ORAL CHEW 2 gummies per day PEDIATRIC MULTIPLE VIT-C-FA 63836072784 Active Sasha Espitia BETO Active SM VITAMIN B12 TR 1000 MCG ORAL CR-TABS 1 tab po daily CYANOCOBALAMIN 76796189207 Active Sasha Espitia BETO Active CLINDAMYCIN HCL 150 MG CAPS 1 four times a day for 1 week CLINDAMYCIN HCL 28675360560 No Longer Active Karen Jaramillo MD Active TRIAMCINOLONE ACETONIDE 0.1 % CREA Apply to affected areas TID for up to 1 week TRIAMCINOLONE ACETONIDE 00889210661 No Longer Active Rian Ortega MD Active ZITHROMAX 1 GM ORAL PACK Take 1 time and recheck lab in 2-3 weeks AZITHROMYCIN 70098687606 No Longer Active Rian Ortega MD Active FLAGYL 500 MG TAB four tabs PO x 1 METRONIDAZOLE 86861075614 No Longer Active Aris Charlton MD Active FLAGYL 500 MG TAB four tabs PO x 1 FLAGYL 500 MG TAB 565639 METRONIDAZOLE Inactive ZITHROMAX 1 GM ORAL PACK Take 1 time and recheck lab in 2-3 weeks ZITHROMAX 1 GM ORAL PACK 141361 AZITHROMYCIN Inactive TRIAMCINOLONE ACETONIDE 0.1 % CREA Apply to affected areas TID for up to 1 week TRIAMCINOLONE ACETONIDE 0.1 % CREA 6243242 TRIAMCINOLONE ACETONIDE Inactive CLINDAMYCIN HCL 150 MG CAPS 1 four times a day for 1 week CLINDAMYCIN HCL 150 MG CAPS 927753 CLINDAMYCIN HCL Inactive CHANTIX 1 MG TABS [...] HGBA1C - Chemistry sodium, serum 142 mmol/L 148-013 1830 carbon dioxide, venous blood 32.8 mmol/L 21.0-32.0 [...] Panel - Chemistry cholesterol, serum 165 mg/dL [phone] triglyceride, serum, fasting 124 mg/dL 30-200 HDL cholesterol, serum 47 mg/dL 32-96 LDL cholesterol, serum 93 mg/dL 0-130 Lab Report: Prothrombin Time - Coagulation prothrombin time (patient) 12.0 SECS s 11.1-13.4 international normalized ratio (INR) 1.0 1.0-3.5 Office Visit: follow up ob - Urinalysis protein, urine, semiquantitative (dipstick) Tr glucose, urine, semiquantitative N nitrite, urine, semiquantitative N Encounters Code Encounter Date Provider Facility CPT-93304 Level 3 Est. Patient 16:40:58 CDT Rian Ortega MD [facility] CPT-84772 Level 3 Est. Patient 13:55:16 EXTENSION WORK INSTRUCTOR Rian Ortega MD [facility] CPT-95619 Level 3 Est. Patient 10:42:52 CDT Corrina Bailon APRN [facility] CPT-06164 Level 3 Est. Patient 11:18:30 CDT Aris Charlton MD [facility] Procedures Code Procedure Name Date Entry Date Standard Description CPT-48542 Lipid - LAB USE ONLY 15:05:24 EXTENSION WORK INSTRUCTOR CPT-88821 PT/INR - LAB USE ONLY 12:14:07 CDT CPT-50127 HGBA1C - LAB USE ONLY 12:14:07 CDT CPT-01351 CMP - LAB USE ONLY 12:14:07 CDT CPT-83190 CBC - LAB USE ONLY 12:14:07 CDT CPT-38057 Venipuncture Draw Fee 12:14:06 CDT CPT-J0702 Celestone 6 mg (Betamethasone) 15:04:45 EXTENSION WORK INSTRUCTOR CPT-00965 Abx/Therapy Injection 15:04:45 EXTENSION WORK INSTRUCTOR CPT-J0702 Celestone 12 mg (Betamethasone) 11:45:31 EXTENSION WORK INSTRUCTOR CPT-06486 Visit 11:39:52 EXTENSION WORK INSTRUCTOR CPT-33148V Sono biophysical pro wo stress test-[place] Only 11:21: 42 EXTENSION WORK INSTRUCTOR CPT-32153 Visit 16:00:50 EXTENSION WORK INSTRUCTOR CPT-39001Y Sono biophysical pro wo stress test-[facility] 13:12: 18 EXTENSION WORK INSTRUCTOR CPT-40000 Sono biophysical pro wo stress test 11:17:21 EXTENSION WORK INSTRUCTOR 05/21 CPT-58477 Tdap 7yrs or > 15:22:51 EXTENSION WORK INSTRUCTOR CPT-26292 Immunization Single Admin 15:22:51 EXTENSION WORK INSTRUCTOR CPT-92789 Tdap 7yrs or > 15:09:13 EXTENSION WORK INSTRUCTOR CPT-07313 Visit 14:54:16 EXTENSION WORK INSTRUCTOR CPT-33552 Fluzone Quadrivalent Intramuscular Suspension 0.5 ML 16: 58:58 CDT CPT-45644 Administration single or combination vaccine inc oral 16 :58:58 CDT CPT-67392 Fluzone Thim Free 36mo and older 14:47:39 CDT CPT-52364 Visit 14:47:39 CDT CPT-93423 Sono OB limited 10:30:07 CDT CPT-66665 Visit 10:04:44 CDT CPT-37474 Sono OB comp > 14 weeks 12:50:41 CDT CPT-05007 Visit 12:06:25 CDT CPT-51779 Visit 12:43:15 CDT CPT-72407 Visit 10:06:02 CDT CPT-18937 Spec Collection and Handling Fee 10:00:31 CDT CPT-29040 Visit 10:00:30 CDT CPT-16449 Drug Screen Grisel 14:36:13 CDT
--- OUTSIDE RECORDS SUMMARY | 2018-08-28 06:46 | XMS REPORT | Clinical Summary ---
Author Author Admin, E Organization [facility] [employer] Address Unknown Phone Unavailable Allergies, Adverse [...] Active Rian Ortega MD Tobacco use disorder Healthcare Technician well woman exam V72.31 Active Sasha Espitia APRN Routine gynecological examination Bariatric operative procedure V45.86 Active Mariely Farolanda RMRy Bariatric surgery status Physical examination V70.0 Active Sasha Espitia APRN Routine general medical examination at a health care facility Dysuria 788.1 Active Nereyda Rodriguez AUTOMOBILE BODY CUSTOMIZER Dysuria Urinary tract infection 599.0 Active Nereyda Rodriguez APRN Urinary tract infection, site not specified Bronchitis 490 Active Carline Best AUTOMOBILE BODY CUSTOMIZER Bronchitis, not specified as acute or chronic [...] Status Provider Patient Instruction GUAIFENESIN 600 MG [id number] 1 twice a day as needed for congestion GUAIFENESIN 21997741766 Active Carline Best APRN Active SYMBICORT 160-4.5 MCG/ACT AERO 2 puff BID for 10 days BUDESONIDE-FORMOTEROL FUMARATE 52270399017 Active Carline Best APRN Active AZITHROMYCIN 250 MG TABS 2 po qd x 1 day, then 1 po qd x 4 days AZITHROMYCIN 57834269037 No Longer Active Carline Best APRN Active CIPRO 500 MG TAB 1 tablet by mouth twice daily CIPROFLOXACIN HCL 31291638167 No Longer Active Tariq Marrero MD Active AZO TABS TABS 2 tabs qd PHENAZOPYRIDINE HCL TABS 58245645010 No Longer Active Tariq Marrero MD Active CIPROFLOXACIN HCL 250 MG ORAL TABS 1 twice a day for bladder infection 07/24 CIPROFLOXACIN HCL 64164276592 No Longer Active Tariq Marrero MD Active SM VITAMIN B12 TR 1000 MCG ORAL CR-TABS 1 tab po daily CYANOCOBALAMIN 09852166766 No Longer Active Nereyda Rodriguez APRN Active CARAFATE 1 GM TAB 1 tab po as needed up to 4 times per day SUCRALFATE 59922769558 No Longer Active Nereyda Rodriguez APRN Active PNV PLUS MULTIVITAMIN 27-1 MG ORAL TABS 1 daily VIT-FE FUMARATE-FA 17544042051 No Longer Active Sasha Espitia APRN Active CHANTIX STARTING MONTH DANILO 0.5 MG X 11 & 1 MG X 42 TABS take as directed 2015 VARENICLINE TARTRATE 76475342060 No Longer Active Sasha Espitia APRN Active CHANTIX 1 MG TABS 1 twice a day to help quit smoking VARENICLINE TARTRATE 22842521627 No Longer Active Sasha Espitia APRN Active OMEPRAZOLE 20 MG CPDR 1 tablet by mouth daily OMEPRAZOLE 83642463662 Active Sasha Espitia APRN Active FLINSTONES GUMMIES OMEGA-3 DHA ORAL CHEW 2 gummies per day PEDIATRIC MULTIPLE VIT-C-FA 93554380267 Active Sasha Espitia APRN Active CLINDAMYCIN HCL 150 MG CAPS 1 four times a day for 1 week CLINDAMYCIN HCL 78880730180 No Longer Active Karen Jaramillo MD Active TRIAMCINOLONE ACETONIDE 0.1 % CREA Apply to affected areas TID for up to 1 week TRIAMCINOLONE ACETONIDE 01237248085 No Longer Active Rian Ortega MD Active ZITHROMAX 1 GM ORAL PACK Take 1 time and recheck lab in 2-3 weeks AZITHROMYCIN 24609676694 No Longer Active Rian Ortega MD Active FLAGYL 500 MG TAB four tabs PO x 1 METRONIDAZOLE 98544490008 No Longer Active Aris Charlton MD Active FLAGYL 500 MG TAB four tabs PO x 1 FLAGYL 500 MG TAB 911004 METRONIDAZOLE Inactive ZITHROMAX 1 GM ORAL PACK Take 1 time and recheck lab in 2-3 weeks ZITHROMAX 1 GM ORAL PACK 970161 AZITHROMYCIN Inactive TRIAMCINOLONE ACETONIDE 0.1 % CREA Apply to affected areas TID for up to 1 week TRIAMCINOLONE ACETONIDE 0.1 % CREA 7205359 TRIAMCINOLONE ACETONIDE Inactive CLINDAMYCIN HCL 150 MG CAPS 1 four times a day for 1 week CLINDAMYCIN HCL 150 MG CAPS 932005 CLINDAMYCIN HCL Inactive CHANTIX 1 MG TABS [...] per day 06/27 CARAFATE 1 GM TAB 077570 SUCRALFATE Inactive SM VITAMIN B12 TR 1000 MCG ORAL CR-TABS 1 tab po daily SM VITAMIN B12 TR 1000 MCG ORAL CR-TABS CYANOCOBALAMIN Inactive CIPROFLOXACIN HCL 250 MG ORAL TABS 1 twice a day for bladder infection 07/24 CIPROFLOXACIN HCL 250 MG ORAL TABS 859967 CIPROFLOXACIN HCL Inactive AZO TABS TABS 2 tabs qd AZO TABS TABS PHENAZOPYRIDINE HCL TABS Inactive CIPRO 500 MG TAB 1 tablet by mouth twice daily CIPRO 500 MG TAB 198299 CIPROFLOXACIN HCL Inactive AZITHROMYCIN 250 MG TABS 2 po qd x 1 day, then 1 po qd x 4 days AZITHROMYCIN 250 MG TABS 7544824 AZITHROMYCIN Inactive Immunizations Vaccine Administration Date Value [...] HGBA1C - Chemistry sodium, serum 142 mmol/L 601-364 8434 carbon dioxide, venous blood 32.8 mmol/L 21.0-32.0 [...] Trace Negative nitrite, urine, semiquantitative Negative Negative urine color Yellow Colorless;Lightyellow;Straw;Yellow glucose, urine, semiquantitative Negative Negative ketones, urine, by test strip Trace Negative bilirubin, urine Negative Negative appearance, urine Clear Clear specific gravity, urine >=1.030 1.000-1.030 pH, urine, semiquantitative 5.5 5.0-8.5 Lab Report: VITAMIN B12/FOLATE, SERUM PANE, FERRITIN, VITAMIN D, 25-HYDR ... - Chemistry vitamin D 25-hydroxy, serum 32 ng/mL 30-100 Encounters Code Encounter Date Provider Facility CPT-46937 Level 3 Est. Patient 11:17:51 [facility]T [facility] CPT-[facility]88 Level 3 Est. Patient 15:43:38 CDT Tariq Marrero MD [facility] CPT-38324 Level 3 Est. Patient 11:16:27 INDUSTRIAL RELATIONS REPRESENTATIVE Nereyda Rodriguez [facility] CPT-94084 Level 4 Est. Patient 08:56:42 INDUSTRIAL RELATIONS REPRESENTATIVE Sasha Espitia [facility] CPT-07809 Level 3 Est. Patient 16:40:58 CDT Rian Ortega MD [facility] CPT-79380 Level 3 Est. Patient 13:55:16 INDUSTRIAL RELATIONS REPRESENTATIVE Rian Ortega MD [facility] CPT-77706 Level 3 Est. Patient 10:42:52 CDT Corrina Garcianikita [facility] CPT-69842 Level 3 Est. Patient 11:18:30 CDT Aris Charlton MD [facility] Procedures Code Procedure Name Date Entry Date Standard Description CPT-50546 UA w micro - LAB USE ONLY 13:09:18 INDUSTRIAL RELATIONS REPRESENTATIVE CPT-55249 Urine Culture - LAB USE ONLY 13:09:18 INDUSTRIAL RELATIONS REPRESENTATIVE CPT-89172 Wet Mount - LAB USE ONLY 11:11:39 INDUSTRIAL RELATIONS REPRESENTATIVE CPT-07365 Lipid - LAB USE ONLY 15:05:24 INDUSTRIAL RELATIONS REPRESENTATIVE CPT-16998 PT/INR - LAB USE ONLY 12:14:07 CDT CPT-37926 HGBA1C - LAB USE ONLY 12:14:07 CDT CPT-25972 CMP - LAB USE ONLY 12:14:07 CDT CPT-00565 CBC - LAB USE ONLY 12:14:07 CDT CPT-60292 Venipuncture Draw Fee 12:14:06 CDT CPT-J0702 Celestone 6 mg (Betamethasone) 15:04:45 INDUSTRIAL RELATIONS REPRESENTATIVE CPT-72392 Abx/Therapy Injection 15:04:45 INDUSTRIAL RELATIONS REPRESENTATIVE CPT-J0702 Celestone 12 mg (Betamethasone) 11:45:31 INDUSTRIAL RELATIONS REPRESENTATIVE CPT-41609 Visit 11:39:52 INDUSTRIAL RELATIONS REPRESENTATIVE CPT-41963R Sono biophysical pro wo stress test-[facility] 11:21: 42 INDUSTRIAL RELATIONS REPRESENTATIVE CPT-53131 Visit 16:00:50 INDUSTRIAL RELATIONS REPRESENTATIVE CPT-93734G Sono biophysical pro wo stress test-[facility] 13:12: 18 INDUSTRIAL RELATIONS REPRESENTATIVE CPT-91095 Sono biophysical pro wo stress test 11:17:21 INDUSTRIAL RELATIONS REPRESENTATIVE 05/21 CPT-20250 Tdap 7yrs or > 15:22:51 INDUSTRIAL RELATIONS REPRESENTATIVE CPT-05443 Immunization Single Admin 15:22:51 INDUSTRIAL RELATIONS REPRESENTATIVE CPT-12246 Tdap 7yrs or > 15:09:13 INDUSTRIAL RELATIONS REPRESENTATIVE CPT-19511 Visit 14:54:16 INDUSTRIAL RELATIONS REPRESENTATIVE CPT-59857 Fluzone Quadrivalent Intramuscular Suspension 0.5 ML 16: 58:58 CDT CPT-44633 Administration single or combination vaccine inc oral 16 :58:58 CDT CPT-14421 Fluzone Thim Free 36mo and older 14:47:39 CDT CPT-32194 Visit 14:47:39 CDT CPT-97221 Sono OB limited 10:30:07 CDT CPT-75339 Visit 10:04:44 CDT CPT-15200 Sono OB comp > 14 weeks 12:50:41 CDT CPT-24990 Visit 12:06:25 CDT CPT-60397 Visit 12:43:15 CDT CPT-18153 Visit 10:06:02 CDT CPT-40400 Spec Collection and Handling Fee 10:00:31 CDT CPT-61234 Visit 10:00:30 CDT CPT-67240 Drug Screen Grisel 14:36:13 CDT
--- OUTSIDE RECORDS SUMMARY | 2018-08-28 06:47 | XMS REPORT | Clinical Summary ---
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 V72.31 Active Sasha Espitia [employer] Routine gynecological examination Bariatric operative procedure V45.86 [...] MG ORAL TABS 1 daily VIT-FE FUMARATE-FA 39999767646 No Longer Active Sasha Espitia APRN Active CHANTIX STARTING MONTH DANILO 0.5 MG X 11 & 1 MG X 42 TABS take as directed 2015 VARENICLINE TARTRATE 08410980132 No Longer Active Sasha Espitia APRN Active CHANTIX 1 MG TABS 1 twice a day to help quit smoking VARENICLINE TARTRATE 42993670421 No Longer Active Sasha Omkar [employer] Active OMEPRAZOLE 20 MG CPDR 1 tablet by mouth daily OMEPRAZOLE 78680380866 Active Sasha Espitia [employer] Active CARAFATE 1 GM TAB 1 tab po as needed up to 4 times per day SUCRALFATE 71951793017 Active Sasha Espitia [employer] Active FLINSTONES GUMMIES OMEGA-3 DHA ORAL CHEW 2 gummies per day PEDIATRIC MULTIPLE VIT-C-FA 86497795285 Active Sasha Espitia [employer] Active SM VITAMIN B12 TR 1000 MCG ORAL CR-TABS 1 tab po daily CYANOCOBALAMIN 18233018436 Active Sasha Espitia BETO Active CLINDAMYCIN HCL 150 MG CAPS 1 four times a day for 1 week CLINDAMYCIN HCL 98127212413 No Longer Active Karen Jaramillo MD Active TRIAMCINOLONE ACETONIDE 0.1 % CREA Apply to affected areas TID for up to 1 week TRIAMCINOLONE ACETONIDE 59053775433 No Longer Active Rian Ortega MD Active ZITHROMAX 1 GM ORAL PACK Take 1 time and recheck lab in 2-3 weeks AZITHROMYCIN 05323205072 No Longer Active Rian Ortega MD Active FLAGYL 500 MG TAB four tabs PO x 1 METRONIDAZOLE 19903481617 No Longer Active Aris Charlton MD Active FLAGYL 500 MG TAB four tabs PO x 1 FLAGYL 500 MG TAB 599183 METRONIDAZOLE Inactive ZITHROMAX 1 GM ORAL PACK Take 1 time and recheck lab in 2-3 weeks ZITHROMAX 1 GM ORAL PACK 579714 AZITHROMYCIN Inactive TRIAMCINOLONE ACETONIDE 0.1 % CREA Apply to affected areas TID for up to 1 week TRIAMCINOLONE ACETONIDE 0.1 % CREA 1326488 TRIAMCINOLONE ACETONIDE Inactive CLINDAMYCIN HCL 150 MG CAPS 1 four times a day for 1 week CLINDAMYCIN HCL 150 MG CAPS 614144 CLINDAMYCIN HCL Inactive CHANTIX 1 MG TABS [...] HGBA1C - Chemistry sodium, serum 142 mmol/L 208-064 6805 carbon dioxide, venous blood 32.8 mmol/L 21.0-32.0 [...] Panel - Chemistry cholesterol, serum 165 mg/dL 072-414 9128 triglyceride, serum, fasting 124 mg/dL 30-200 HDL cholesterol, serum 47 mg/dL 32-96 LDL cholesterol, serum 93 mg/dL 0-130 Lab Report: Prothrombin Time - Coagulation prothrombin time (patient) 12.0 SECS s 11.1-13.4 international normalized ratio (INR) 1.0 1.0-3.5 Office Visit: follow up ob - Urinalysis protein, urine, semiquantitative (dipstick) Tr glucose, urine, semiquantitative N nitrite, urine, semiquantitative N Encounters Code Encounter Date Provider Facility CPT-77005 Level 3 Est. Patient 16:40:58 CDT Rian Ortega MD [facility] CPT-89753 Level 3 Est. Patient 13:55:16 GUIDE PLANT Rian Ortega MD [facility] CPT-26497 Level 3 Est. Patient 10:42:52 CDT Corrina Garcianikita PÉREZ [facility] CPT-53742 Level 3 Est. Patient 11:18:30 CDT Aris Charlton MD [facility] Procedures Code Procedure Name Date Entry Date Standard Description CPT-35334 PT/INR - LAB USE ONLY 12:14:07 CDT CPT-62352 HGBA1C - LAB USE ONLY 12:14:07 CDT CPT-46202 CMP - LAB USE ONLY 12:14:07 CDT CPT-54050 CBC - LAB USE ONLY 12:14:07 CDT CPT-14264 Venipuncture Draw Fee 12:14:06 CDT CPT-J0702 Celestone 6 mg (Betamethasone) 15:04:45 GUIDE PLANT CPT-49949 Abx/Therapy Injection 15:04:45 GUIDE PLANT CPT-J0702 Celestone 12 mg (Betamethasone) 11:45:31 GUIDE PLANT CPT-04963 Visit 11:39:52 GUIDE PLANT CPT-22936H Sono biophysical pro wo stress test-[place] Only 11:21: 42 GUIDE PLANT CPT-91356 Visit 16:00:50 GUIDE PLANT CPT-36472R Sono biophysical pro wo stress test-[facility] 13:12: 18 GUIDE PLANT CPT-00487 Sono biophysical pro wo stress test 11:17:21 GUIDE PLANT 05/21 CPT-95646 Tdap 7yrs or > 15:22:51 GUIDE PLANT CPT-06237 Immunization Single Admin 15:22:51 GUIDE PLANT CPT-80874 Tdap 7yrs or > 15:09:13 GUIDE PLANT CPT-26029 Visit 14:54:16 GUIDE PLANT CPT-49591 Fluzone Quadrivalent Intramuscular Suspension 0.5 ML 16: 58:58 CDT CPT-61319 Administration single or combination vaccine inc oral 16 :58:58 CDT CPT-61890 Fluzone Thim Free 36mo and older 14:47:39 CDT CPT-86354 Visit 14:47:39 CDT CPT-20715 Sono OB limited 10:30:07 CDT CPT-53742 Visit 10:04:44 CDT CPT-81516 Sono OB comp > 14 weeks 12:50:41 CDT CPT-85297 Visit 12:06:25 CDT CPT-90745 Visit 12:43:15 CDT CPT-97253 Visit 10:06:02 CDT CPT-94639 Spec Collection and Handling Fee 10:00:31 CDT CPT-58066 Visit 10:00:30 CDT CPT-56558 Drug Screen Grisel 14:36:13 CDT
--- OUTSIDE RECORDS SUMMARY | 2018-08-28 06:47 | XMS REPORT | Clinical Summary ---
Author Author Admin, E Organization [facility] Address Unknown Phone Unavailable Allergies, Adverse [...] and recheck lab in 2-3 weeks AZITHROMYCIN 20905589417 Active Carolina Mayfield LPN Active TRIAMCINOLONE ACETONIDE 0.1 % CREA Apply to affected areas TID for up to 1 week TRIAMCINOLONE ACETONIDE 28595273030 Active Aris Charlton MD Active PNV PLUS MULTIVITAMIN 27-1 MG ORAL TABS 1 daily VIT-FE FUMARATE-FA 58174487951 Active Aris Charlton MD Active FLAGYL 500 MG TAB four tabs PO x 1 METRONIDAZOLE 57449322342 No Longer Active Aris Charlton MD Active FLAGYL 500 MG TAB four tabs PO x 1 FLAGYL 500 MG TAB 614766 METRONIDAZOLE Inactive Immunizations Vaccine Administration Date Value [...] % 11.0-15.0 platelet count 307 THOUSAND/UL 10*3/mm3 053-945 8719/05/26 mean platelet volume 8.9 fL 7.5-11.5 Blood [...] ... - Chemistry sodium, serum 137 mmol/L 465-821 5096/08/28 potassium, serum 4.3 mmol/L 3.5-5.2 chloride, serum [...] 325 10^3/MM^3 10*3/mm3 142-424 Lab Report: Chlamydia/GC APTIMA/[id number] - Lab chlamydia DNA probe NOT DETECTED NOT DETECTED chlamydia DNA probe DETECTED NOT DETECTED Lab Report: Chlamydia/GC APTIMA/85569 - Microbiology Neisseria gonorrhoeae DNA probe NOT [...] urine, semiquantitative 7.0 5.0-8.5 Lab Report: [facility] [place] human chorionic [...] N Encounters Code Encounter Date Provider Facility CPT-12253 Level 3 Est. Patient 10:42:52 CDT Corrina Bailon APRN [facility] CPT-71626 Level 3 Est. Patient 11:18:30 CDT Aris Charlton MD [facility] Procedures Code Procedure Name Date Entry Date Standard Description CPT-33613 Visit 12:43:15 CDT CPT-78313 Visit 10:06:02 CDT CPT-54298 Spec Collection and Handling Fee 10:00:31 CDT CPT-22705 Visit 10:00:30 CDT CPT-79260 Drug Screen Grisel 14:36:13 CDT
--- OUTSIDE RECORDS SUMMARY | 2018-08-28 06:48 | XMS REPORT | Clinical Summary ---
Author Author Admin, E Organization [facility] Address Unknown Phone [...] Active Rian Ortega MD Tobacco use disorder [employer] well woman exam V72.31 Active Sasha Espitia [...] , third trimester ICD-V23.9 10/31 Inactive Rian rOtega MD Advanced maternal age ICD-659.60 Inactive Rian [...] as needed for muscle spasm CYCLOBENZAPRINE HCL 75228681996 Active Rian Ortega MD Active SYMBICORT 160-4.5 MCG/ACT AERO 2 puff BID for 10 days BUDESONIDE-FORMOTEROL FUMARATE 07367381780 No Longer Active Rian Ortega MD Active GUAIFENESIN 600 MG [id number] 1 twice a day as needed for congestion GUAIFENESIN 35763009668 Active Jillina Frazell BSW Active AZITHROMYCIN 250 MG TABS 2 po qd x 1 day, then 1 po qd x 4 days AZITHROMYCIN 98166118617 No Longer Active Jillina Fravirall BSW Active CIPRO 500 MG TAB 1 tablet by mouth twice daily CIPROFLOXACIN HCL 66235495465 No Longer Active Tariq Marrero MD Active AZO TABS TABS 2 tabs qd PHENAZOPYRIDINE HCL TABS 08630149555 No Longer Active Tariq Marrero MD Active CIPROFLOXACIN HCL 250 MG ORAL TABS 1 twice a day for bladder infection 07/24 CIPROFLOXACIN HCL 40835741435 No Longer Active Tariq Marrero MD Active SM VITAMIN B12 TR 1000 MCG ORAL CR-TABS 1 tab po daily CYANOCOBALAMIN 17457978431 No Longer Active Nereyda Rodriguez APRN Active CARAFATE 1 GM TAB 1 tab po as needed up to 4 times per day SUCRALFATE 44992105634 No Longer Active Nereyda Rodriguez APRN Active PNV PLUS MULTIVITAMIN 27-1 MG ORAL TABS 1 daily VIT-FE FUMARATE-FA 61290326382 No Longer Active Sasha Espitia APRN Active CHANTIX STARTING MONTH DANILO 0.5 MG X 11 & 1 MG X 42 TABS take as directed 2015 VARENICLINE TARTRATE 50312225828 No Longer Active Sasha Espitia APRN Active CHANTIX 1 MG TABS 1 twice a day to help quit smoking VARENICLINE TARTRATE 25586507428 No Longer Active Sasha Espitia APRN Active OMEPRAZOLE 20 MG CPDR 1 tablet by mouth daily OMEPRAZOLE 53716561624 Active Sasha Espitia APRN Active FLINSTONES GUMMIES OMEGA-3 DHA ORAL CHEW 2 gummies per day PEDIATRIC MULTIPLE VIT-C-FA 26286402618 Active Sasha Espitia APRN Active CLINDAMYCIN HCL 150 MG CAPS 1 four times a day for 1 week CLINDAMYCIN HCL 66619258649 No Longer Active Karen Jaramillo MD Active TRIAMCINOLONE ACETONIDE 0.1 % CREA Apply to affected areas TID for up to 1 week TRIAMCINOLONE ACETONIDE 90007315421 No Longer Active Rian Ortega MD Active ZITHROMAX 1 GM ORAL PACK Take 1 time and recheck lab in 2-3 weeks AZITHROMYCIN 88190661572 No Longer Active Rian Ortega MD Active FLAGYL 500 MG TAB four tabs PO x 1 METRONIDAZOLE 21737435262 No Longer Active Aris Charlton MD Active FLAGYL 500 MG TAB four tabs PO x 1 FLAGYL 500 MG TAB 293734 METRONIDAZOLE Inactive ZITHROMAX 1 GM ORAL PACK Take 1 time and recheck lab in 2-3 weeks ZITHROMAX 1 GM ORAL PACK 411956 AZITHROMYCIN Inactive TRIAMCINOLONE ACETONIDE 0.1 % CREA Apply to affected areas TID for up to 1 week TRIAMCINOLONE ACETONIDE 0.1 % CREA 8277679 TRIAMCINOLONE ACETONIDE Inactive CLINDAMYCIN HCL 150 MG CAPS 1 four times a day for 1 week CLINDAMYCIN HCL 150 MG CAPS 670791 CLINDAMYCIN HCL Inactive CHANTIX 1 MG TABS [...] per day 06/27 CARAFATE 1 GM TAB 270727 SUCRALFATE Inactive SM VITAMIN B12 TR 1000 MCG ORAL CR-TABS 1 tab po daily SM VITAMIN B12 TR 1000 MCG ORAL CR-TABS CYANOCOBALAMIN Inactive CIPROFLOXACIN HCL 250 MG ORAL TABS 1 twice a day for bladder infection 07/24 CIPROFLOXACIN HCL 250 MG ORAL TABS 228591 CIPROFLOXACIN HCL Inactive AZO TABS TABS 2 tabs qd AZO TABS TABS PHENAZOPYRIDINE HCL TABS Inactive SYMBICORT 160-4.5 MCG/ACT AERO 2 puff BID for 10 days SYMBICORT 160-4.5 MCG/ACT AERO BUDESONIDE-FORMOTEROL FUMARATE Inactive CIPRO 500 MG TAB 1 tablet by mouth twice daily CIPRO 500 MG TAB 506264 CIPROFLOXACIN HCL Inactive AZITHROMYCIN 250 MG TABS 2 po qd x 1 day, then 1 po qd x 4 days AZITHROMYCIN 250 MG TABS 729711 AZITHROMYCIN Inactive Immunizations Vaccine Administration Date Value [...] HGBA1C - Chemistry sodium, serum 142 mmol/L 084-303 5993 carbon dioxide, venous blood 32.8 mmol/L 21.0-32.0 [...] Panel - Chemistry cholesterol, serum 165 mg/dL 012-868 8935 triglyceride, serum, fasting 124 mg/dL 30-200 HDL [...] 30-100 Encounters Code Encounter Date Provider Facility CPT-12261 Level 3 Est. Patient 11:54:40 CDT Rian Ortega MD [facility] CPT-15334 Level 3 Est. Patient 11:17:51 CDT Carline Best [facility] CPT-37574 Level 3 Est. Patient 15:43:38 CDT Tariq Marrero MD [facility] CPT-59468 Level 3 Est. Patient 11:16:27 [employer] SUPERVIS[employer] Nereyda Rodriguez [facility] CPT-88343 Level 4 Est. Patient 08:56:42 [employer] Sasha Espitia [facility] CPT-85114 Level 3 Est. Patient 16:40:58 CDT Rian Ortega MD [facility] CPT-93300 Level 3 Est. Patient 13:55:16 [employer]PER[employer] Rian Ortega MD [facility] CPT-84888 Level 3 Est. Patient 10:42:52 CDT Corrina Bailon [facility] CPT-60182 Level 3 Est. Patient 11:18:30 CDT Aris Charlton MD [facility] Procedures Code Procedure Name Date Entry Date Standard Description CPT-29628 UA w micro - LAB USE ONLY 13:09:18 [employer] CPT-88785 Urine Culture - LAB USE ONLY 13:09:18 [employer]PER[employer] CPT-83453 Wet Mount - LAB USE ONLY 11:11:39 [employer]PER[employer]OR CPT-70816 Lipid - LAB USE ONLY 15:05:24 [employer] CPT-96112 PT/INR - LAB USE ONLY 12:14:07 CDT CPT-43387 HGBA1C - LAB USE ONLY 12:14:07 CDT CPT-88841 CMP - LAB USE ONLY 12:14:07 CDT CPT-69185 CBC - LAB USE ONLY 12:14:07 CDT CPT-52951 Venipuncture Draw Fee 12:14:06 CDT CPT-J0702 Celestone 6 mg (Betamethasone) 15:04:45 [employer] CPT-21784 Abx/Therapy Injection 15:04:45 [employer]PER[employer]OR CPT-J0702 Celestone 12 mg (Betamethasone) 11:45:31 [employer] SUPERVISOR CPT-59130 Visit 11:39:52 [employer] SUPERVISOR CPT-39280W Sono biophysical pro wo stress test-[place] Only 11:21: 42 [employer]PER[employer]OR CPT-14201 Visit 16:00:50 [employer] SUPERVISOR CPT-11128X Sono biophysical pro wo stress test-[facility] 13:12: 18 [employer] SUPERVISOR CPT-01595 Sono biophysical pro wo stress test 11:17:21 [employer]Y [employer] SUPERVISOR 05/21 CPT-96300 Tdap 7yrs or > 15:22:51 [employer]PER[employer] CPT-40734 Immunization Single Admin 15:22:51 [employer]PER[employer] CPT-95798 Tdap 7yrs or > 15:09:13 [employer]Y [employer] SUPERVISOR CPT-00908 Visit 14:54:16 [employer]Y [employer] SUPERVISOR CPT-81791 Fluzone Quadrivalent Intramuscular Suspension 0.5 ML 16: 58:58 CDT CPT-91362 Administration single or combination vaccine inc oral 16 :58:58 CDT CPT-78681 Fluzone Thim Free 36mo and older 14:47:39 CDT CPT-30879 Visit 14:47:39 CDT CPT-79745 Sono OB limited 10:30:07 CDT CPT-73118 Visit 10:04:44 CDT CPT-73725 Sono OB comp > 14 weeks 12:50:41 CDT CPT-55848 Visit 12:06:25 CDT CPT-14765 Visit 12:43:15 CDT CPT-06561 Visit 10:06:02 CDT CPT-38904 Spec Collection and Handling Fee 10:00:31 CDT CPT-42128 Visit 10:00:30 CDT CPT-03652 Drug Screen [place]isel 14:36:13 CDT
--- OUTSIDE RECORDS SUMMARY | 2018-08-28 06:48 | XMS REPORT | Clinical Summary ---
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 Sasha Tan [...] Special investigations and examinations - Gynecological examination Supervision high risk , third trimester ICD-V23.9 [...] Dysuria ICD-788.1 Inactive Rian Ortega MD 03/29 18 weeks gestation of ICD-V28.9 Inactive Karen Jaramillo MD Myalgias ICD-729.1 Inactive Tariq Marrero MD Bronchitis ICD-490 Inactive Rian Ortega MD 2016 Medication List Medication Instructions Start Date Stop Date Generic Name NDC Status Provider Patient Instruction BACTRIM DS 800-160 MG ORAL TABLET 1 twice a day SULFAMETHOXAZOLE-TRIMETHOPRIM 12676118539 No Longer Active Irma Michaels Active ZITHROMAX Z-DANILO 250 MG ORAL TABLET 2 today, then 1 daily for 4 days AZITHROMYCIN 11258729279 No Longer Active Mahsa Alvarez Active AZITHROMYCIN 250 MG ORAL TABLET 2 po qd x 1 day, then 1 po qd x 4 days 07/27 AZITHROMYCIN 91294544184 No Longer Active Carline Best APRN Active GUAIFENESIN ER 600 MG ORAL TABLET EXTENDED RELEASE 12 HOUR 1 twice a day as needed for congestion GUAIFENESIN 77399221047 No Longer Active Sasha Tan APRN Active CYCLOBENZAPRINE HCL 10 MG ORAL TABLET 1 three times a day as needed for muscle spasm CYCLOBENZAPRINE HCL 35069109972 No Longer Active Sasha Tan APRN Active SYMBICORT 160-4.5 MCG/ACT INHALATION AEROSOL 2 puff BID for 10 days BUDESONIDE-FORMOTEROL FUMARATE 59791293506 No Longer Active Rian Ortega MD Active AZITHROMYCIN 250 MG ORAL TABLET 2 po qd x 1 day, then 1 po qd x 4 days 02/15 AZITHROMYCIN 36255822527 No Longer Active Carline Best APRN Active CIPRO 500 MG ORAL TABLET 1 tablet by mouth twice daily CIPROFLOXACIN HCL 47296891915 No Longer Active Tariq Marrero MD Active AZO TABS TABLET 2 tabs qd PHENAZOPYRIDINE HCL TABS 82368395084 No Longer Active Tariq Marrero MD Active CIPROFLOXACIN HCL 250 MG ORAL TABLET 1 twice a day for bladder infection 2016 CIPROFLOXACIN HCL 67522532793 No Longer Active aTriq Marrero MD Active SM VITAMIN B12 TR 1000 MCG ORAL TABLET EXTENDED RELEASE 1 tab po daily 04/24 CYANOCOBALAMIN 21884131511 No Longer Active Nereyda Rodriguez APRN Active CARAFATE 1 GM ORAL TABLET 1 tab po as needed up to 4 times per day SUCRALFATE 44739782912 No Longer Active Nereyda Rodriguez APRN Active PNV PLUS MULTIVITAMIN 27-1 MG ORAL TABLET 1 daily 04/24 VIT-FE FUMARATE-FA 40185017581 No Longer Active Sasha Tan APRN Active CHANTIX STARTING MONTH DANILO 0.5 MG X 11 & 1 MG X 42 ORAL TABLET take as directed VARENICLINE TARTRATE 28595724766 No Longer Active Sasha Tan APRN Active CHANTIX 1 MG ORAL TABLET 1 twice a day to help quit smoking 04/24 VARENICLINE TARTRATE 51542087684 No Longer Active Sasha Tan APRN Active OMEPRAZOLE 20 MG ORAL CAPSULE DELAYED RELEASE 1 tablet by mouth daily OMEPRAZOLE 63351532466 Active Sasha Tan APRN Active FLINSTONES GUMMIES OMEGA-3 DHA ORAL TABLET CHEWABLE 2 gummies per day PEDIATRIC MULTIPLE VIT-C-FA 01008029789 Active Sasha Tan APRN Active CLINDAMYCIN HCL 150 MG ORAL CAPSULE 1 four times a day for 1 week CLINDAMYCIN HCL 17776250342 No Longer Active Karen Jaramillo MD Active TRIAMCINOLONE ACETONIDE 0.1 % EXTERNAL CREAM Apply to affected areas TID for up to 1 week TRIAMCINOLONE ACETONIDE 90003720037 No Longer Active Rian Ortega MD Active ZITHROMAX 1 GM ORAL PACKET Take 1 time and recheck lab in 2-3 weeks AZITHROMYCIN 08119411087 No Longer Active Rian Ortega MD Active FLAGYL 500 MG ORAL TABLET four tabs PO x 1 METRONIDAZOLE 01226311418 No Longer Active Aris Charlton MD Active FLAGYL 500 MG ORAL TABLET four tabs PO x 1 FLAGYL 500 MG ORAL TABLET 454638 METRONIDAZOLE Inactive ZITHROMAX 1 GM ORAL PACKET Take 1 time and recheck lab in 2-3 weeks ZITHROMAX 1 GM ORAL PACKET 483929 AZITHROMYCIN Inactive TRIAMCINOLONE ACETONIDE 0.1 % EXTERNAL CREAM Apply to affected areas TID for up to 1 week TRIAMCINOLONE ACETONIDE 0.1 % EXTERNAL CREAM 7372309 TRIAMCINOLONE ACETONIDE Inactive CLINDAMYCIN HCL 150 MG ORAL CAPSULE 1 four times a day for 1 week CLINDAMYCIN HCL 150 MG ORAL CAPSULE 967145 CLINDAMYCIN HCL Inactive CHANTIX 1 MG ORAL [...] per day CARAFATE 1 GM ORAL TABLET 363892 SUCRALFATE Inactive SM VITAMIN B12 TR 1000 MCG ORAL TABLET EXTENDED RELEASE 1 tab po daily 04/24 SM VITAMIN B12 TR 1000 MCG ORAL TABLET EXTENDED RELEASE CYANOCOBALAMIN Inactive CIPROFLOXACIN HCL 250 MG ORAL TABLET 1 twice a day for bladder infection 2016 CIPROFLOXACIN HCL 250 MG ORAL TABLET 466006 CIPROFLOXACIN HCL Inactive AZO TABS TABLET 2 tabs qd AZO TABS TABLET PHENAZOPYRIDINE HCL TABS Inactive SYMBICORT 160-4.5 MCG/ACT INHALATION AEROSOL 2 puff BID for 10 days SYMBICORT 160-4.5 MCG/ACT INHALATION AEROSOL BUDESONIDE- FORMOTEROL FUMARATE Inactive CYCLOBENZAPRINE HCL 10 MG ORAL TABLET 1 three times a day as needed for muscle spasm CYCLOBENZAPRINE HCL 10 MG ORAL TABLET 622733 CYCLOBENZAPRINE HCL Inactive GUAIFENESIN ER 600 MG ORAL TABLET EXTENDED RELEASE 12 HOUR 1 twice a day as needed for congestion GUAIFENESIN ER 600 MG ORAL TABLET EXTENDED RELEASE 12 HOUR GUAIFENESIN Inactive BACTRIM DS 800-160 MG ORAL TABLET 1 twice a day BACTRIM DS 800-160 MG ORAL TABLET 998889 SULFAMETHOXAZOLE-TRIMETHOPRIM Inactive CIPRO 500 MG ORAL TABLET 1 tablet by mouth twice daily CIPRO 500 MG ORAL TABLET 605463 CIPROFLOXACIN HCL Inactive AZITHROMYCIN 250 MG ORAL TABLET 2 po qd x 1 day, then 1 po qd x 4 days 02/15 AZITHROMYCIN 250 MG ORAL TABLET 319343 AZITHROMYCIN Inactive AZITHROMYCIN 250 MG ORAL TABLET 2 po qd x 1 day, then 1 po qd x 4 days 07/27 AZITHROMYCIN 250 MG ORAL TABLET 546938 AZITHROMYCIN Inactive ZITHROMAX Z-DANILO 250 MG ORAL TABLET 2 today, then 1 daily for 4 days ZITHROMAX Z-DANILO 250 MG ORAL TABLET 733890 AZITHROMYCIN Inactive Immunizations Vaccine Administration Date Value [...] leukocyte count, blood sent to [facility] 10^3/mm^3 10*3/mm3 4.6-10.2 Lab Report: CBC, Lipid Panel, Thyroid Stimulating Hormone (L), Free Thyr ... - Chemistry cholesterol, serum 142 mg/dL 706-572 1993/10/24 triglyceride, serum, fasting 77 mg/dL 30-200 HDL [...] Lab Report: Comp. Metabolic Panel - Chemistry carbon dioxide, venous blood 24.4 mmol/L 21.0-32.0 sodium, serum 137 mmol/L 156-499 8015/10/24 creatinine, serum 0.82 mg/dL 0.60-1.30 alanine aminotransferase (SGPT), serum 29 U/L 12-78 aspartate aminotransferase (SGOT), serum 16 U/L 15-37 calcium, serum 8.4 mg/dL 8.5-10.1 bilirubin, serum, total 0.60 mg/dL 0.00-1.00 potassium, serum 4.7 mmol/L 3.5-5.2 chloride, serum 104 mmol/L 98-107 blood glucose 85 mg/dL 65-110 urea nitrogen, blood 11 mg/dL 01-12 Lab Report: ELIAZAR INFLUENZA A/B - Toxicology [...] 1+ Encounters Code Encounter Date Provider Facility CPT-82524 Level 3 Est. Patient 14:41:20 CDT Tariq Marrero MD [facility] CPT-69294 Level 3 Est. Patient 11:06:09 LCPC Carline Best [facility] CPT-91045 Level 3 Est. Patient 15:59:13 LCPC Carline Best [facility] CPT-10650 Employment/ICC Exam 15:03:09 LCPC Sasha Tan [facility] CPT-96403 Level 3 Est. Patient 11:54:40 CDT Rian Ortega MD [facility] CPT-36480 Level 3 Est. Patient 11:17:51 CDT Carline Best [facility] CPT-88705 Level 3 Est. Patient 15:43:38 CDT Tariq Marrero MD [facility] CPT-43278 Level 3 Est. Patient 11:16:27 LCPC Nereyda Rodriguez [facility] CPT-30127 Level 4 Est. Patient 08:56:42 LCPC Sasha Tan [facility] CPT-68636 Level 3 Est. Patient 16:40:58 CDT Rian Ortega MD [facility] CPT-78422 Level 3 Est. Patient 13:55:16 LCPC Rian Ortega MD [facility] CPT-33782 Level 3 Est. Patient 10:42:52 CDT Corrina Bailon APRN [facility] CPT-64165 Level 3 Est. Patient 11:18:30 CDT Aris Charlton MD [facility] Procedures Code Procedure Name Date Entry Date Standard Description CPT-01477 Prv Med Est Pt 40-64yrs 16:49:40 CDT CPT-03096 UA w micro - LAB USE ONLY 13:09:18 LCPC CPT-37257 Urine Culture - LAB USE ONLY 13:09:18 LCPC CPT-98236 Wet Mount - LAB USE ONLY 11:11:39 LCPC CPT-55003 Lipid - LAB USE ONLY 15:05:24 LCPC CPT-84483 PT/INR - LAB USE ONLY 12:14:07 CDT CPT-88266 HGBA1C - LAB USE ONLY 12:14:07 CDT CPT-10415 CMP - LAB USE ONLY 12:14:07 CDT CPT-27286 CBC - LAB USE ONLY 12:14:07 CDT CPT-91807 Venipuncture Draw Fee 12:14:06 CDT CPT-J0702 Celestone 6 mg (Betamethasone) 15:04:45 LCPC CPT-00234 Abx/Therapy Injection 15:04:45 LCPC CPT-J0702 Celestone 12 mg (Betamethasone) 11:45:31 LCPC CPT-35745 Visit 11:39:52 LCPC CPT-23929U Sono biophysical pro wo stress test-[place] Only 11:21: 42 LCPC CPT-83029 Visit 16:00:50 LCPC CPT-71261Z Sono biophysical pro wo stress test-[facility] 13:12: 18 LCPC CPT-16946 Sono biophysical pro wo stress test 11:17:21 LCPC 05/21 CPT-13611 Tdap 7yrs or > 15:22:51 LCPC CPT-27813 Immunization Single Admin 15:22:51 LCPC CPT-23092 Tdap 7yrs or > 15:09:13 LCPC CPT-53846 Visit 14:54:16 LCPC CPT-58245 Fluzone Quadrivalent Intramuscular Suspension 0.5 ML 16: 58:58 CDT CPT-97718 Administration single or combination vaccine inc oral 16 :58:58 CDT CPT-90580 Fluzone Thim Free 36mo and older 14:47:39 CDT CPT-90391 Visit 14:47:39 CDT CPT-88002 Sono OB limited 10:30:07 CDT CPT-64603 Visit 10:04:44 CDT CPT-02193 Sono OB comp > 14 weeks 12:50:41 CDT CPT-49223 Visit 12:06:25 CDT CPT-35383 Visit 12:43:15 CDT CPT-86258 Visit 10:06:02 CDT CPT-70684 Spec Collection and Handling Fee 10:00:31 CDT CPT-05936 Visit 10:00:30 CDT CPT-31848 Drug Screen Grisel 14:36:13 CDT
--- OUTSIDE RECORDS SUMMARY | 2018-08-28 06:49 | XMS REPORT | Clinical Summary ---
Author Author Admin, [facility] Organization [facility] Address Unknown Phone Unavailable Allergies, Adverse [...] Active Rian Ortega MD Tobacco use disorder Fingerprint Expert well woman exam V72.31 Active Sasha Espitia [...] Ortega MD Trichomonal vaginitis ICD-131.01 Inactive Rian Otrega MD Insect bite ICD-919.4 Inactive Karen Jaramillo MD Sexual activity, high risk ICD-V69.2 Inactive Rian Ortega MD Diarrhea ICD-787.91 Inactive Rian Ortega MD Nausea and vomiting ICD-787.01 Inactive Rian Ortega MD Supervision of elderly primigravida, second trimester ICD-V23.83 Inactive Karen Jaramillo MD Weight loss ICD-783.21 Inactive Karen Jaarmillo MD 18 weeks gestation of ICD-V28.9 Inactive [...] MG ORAL TABS 1 daily VIT-FE FUMARATE-FA 74409348082 No Longer Active Sasha Espitia APRN Active CHANTIX STARTING MONTH DANILO 0.5 MG X 11 & 1 MG X 42 TABS take as directed 2015 VARENICLINE TARTRATE 23691175745 No Longer Active Sasha Espitia APRN Active CHANTIX 1 MG TABS 1 twice a day to help quit smoking VARENICLINE TARTRATE 49806374039 No Longer Active Sashashante Espitia APRN Active OMEPRAZOLE 20 MG CPDR 1 tablet by mouth daily OMEPRAZOLE 21247570292 Active Sasha Espitia BEOT Active CARAFATE 1 GM TAB 1 tab po as needed up to 4 times per day SUCRALFATE 99467183365 Active Sasha Omkar PÉREZ Active FLINSTONES GUMMIES OMEGA-3 DHA ORAL CHEW 2 gummies per day PEDIATRIC MULTIPLE VIT-C-FA 30299880260 Active Sasha Espitia BETO Active SM VITAMIN B12 TR 1000 MCG ORAL CR-TABS 1 tab po daily CYANOCOBALAMIN 49280238797 Active Sasha Espitia BETO Active CLINDAMYCIN HCL 150 MG CAPS 1 four times a day for 1 week CLINDAMYCIN HCL 36993966726 No Longer Active Karen Jaramillo MD Active TRIAMCINOLONE ACETONIDE 0.1 % CREA Apply to affected areas TID for up to 1 week TRIAMCINOLONE ACETONIDE 29078164977 No Longer Active Rian Ortega MD Active ZITHROMAX 1 GM ORAL PACK Take 1 time and recheck lab in 2-3 weeks AZITHROMYCIN 54140394587 No Longer Active Rian Ortega MD Active FLAGYL 500 MG TAB four tabs PO x 1 METRONIDAZOLE 40075685272 No Longer Active Aris Charlton MD Active FLAGYL 500 MG TAB four tabs PO x 1 FLAGYL 500 MG TAB 024910 METRONIDAZOLE Inactive ZITHROMAX 1 GM ORAL PACK Take 1 time and recheck lab in 2-3 weeks ZITHROMAX 1 GM ORAL PACK 602591 AZITHROMYCIN Inactive TRIAMCINOLONE ACETONIDE 0.1 % CREA Apply to affected areas TID for up to 1 week TRIAMCINOLONE ACETONIDE 0.1 % CREA 4222168 TRIAMCINOLONE ACETONIDE Inactive CLINDAMYCIN HCL 150 MG CAPS 1 four times a day for 1 week CLINDAMYCIN HCL 150 MG CAPS 838541 CLINDAMYCIN HCL Inactive CHANTIX 1 MG TABS [...] HGBA1C - Chemistry sodium, serum 142 mmol/L [phone] carbon dioxide, venous blood 32.8 mmol/L 21.0-32.0 [...] Panel - Chemistry cholesterol, serum 165 mg/dL [phone] triglyceride, serum, fasting 124 mg/dL 30-200 HDL [...] N Encounters Code Encounter Date Provider Facility CPT-30770 Level 4 Est. Patient 08:56:42 TIME STUDY TECHNOLOGIST Sasha Espitia APRN [facility] CPT-63193 Level 3 Est. Patient 16:40:58 CDT Rian Ortega MD [facility] CPT-88829 Level 3 Est. Patient 13:55:16 TIME STUDY TECHNOLOGIST Rian Ortega MD [facility] CPT-05717 Level 3 Est. Patient 10:42:52 CDT Corrina Bailon APRN [facility] CPT-47110 Level 3 Est. Patient 11:18:30 CDT Aris Charlton MD [facility] Procedures Code Procedure Name Date Entry Date Standard Description CPT-28875 Wet Mount - LAB USE ONLY 11:11:39 TIME STUDY TECHNOLOGIST CPT-44100 Lipid - LAB USE ONLY 15:05:24 TIME STUDY TECHNOLOGIST CPT-62446 PT/INR - LAB USE ONLY 12:14:07 CDT CPT-16097 HGBA1C - LAB USE ONLY 12:14:07 CDT CPT-05388 CMP - LAB USE ONLY 12:14:07 CDT CPT-11749 CBC - LAB USE ONLY 12:14:07 CDT CPT-82233 Venipuncture Draw Fee 12:14:06 CDT CPT-J0702 Celestone 6 mg (Betamethasone) 15:04:45 TIME STUDY TECHNOLOGIST CPT-98280 Abx/Therapy Injection 15:04:45 TIME STUDY TECHNOLOGIST CPT-J0702 Celestone 12 mg (Betamethasone) 11:45:31 TIME STUDY TECHNOLOGIST CPT-01217 Visit 11:39:52 TIME STUDY TECHNOLOGIST CPT-54947O Sono biophysical pro wo stress test-[place] Only 11:21: 42 TIME STUDY TECHNOLOGIST CPT-26798 Visit 16:00:50 TIME STUDY TECHNOLOGIST CPT-66923F Sono biophysical pro wo stress test-[place] Only 13:12: 18 TIME STUDY TECHNOLOGIST CPT-56252 Sono biophysical pro wo stress test 11:17:21 TIME STUDY TECHNOLOGIST 05/21 CPT-12765 Tdap 7yrs or > 15:22:51 TIME STUDY TECHNOLOGIST CPT-15414 Immunization Single Admin 15:22:51 TIME STUDY TECHNOLOGIST CPT-16463 Tdap 7yrs or > 15:09:13 TIME STUDY TECHNOLOGIST CPT-65087 Visit 14:54:16 TIME STUDY TECHNOLOGIST CPT-62515 Fluzone Quadrivalent Intramuscular Suspension 0.5 ML 16: 58:58 CDT CPT-25065 Administration single or combination vaccine inc oral 16 :58:58 CDT CPT-55385 Fluzone Thim Free 36mo and older 14:47:39 CDT CPT-69929 Visit 14:47:39 CDT CPT-80986 Sono OB limited 10:30:07 CDT CPT-92939 Visit 10:04:44 CDT CPT-29086 Sono OB comp > 14 weeks 12:50:41 CDT CPT-16111 Visit 12:06:25 CDT CPT-09479 Visit 12:43:15 CDT CPT-02234 Visit 10:06:02 CDT CPT-66945 Spec Collection and Handling Fee 10:00:31 CDT CPT-48809 Visit 10:00:30 CDT CPT-84442 Drug Screen [place] 14:36:13 CDT
--- OUTSIDE RECORDS SUMMARY | 2018-08-28 06:50 | XMS REPORT | Clinical Summary ---
Author Author Admin, E Organization [facility] Address Unknown Phone Unavailable Allergies, Adverse Reactions, [...] Active Rian Ortega MD Tobacco use disorder Research Scientist well woman exam V72.31 Active Sasha Tan [...] ORAL TABLET 1 twice a day SULFAMETHOXAZOLE-TRIMETHOPRIM 07455972189 No Longer Active Irma Michaels Active ZITHROMAX Z-DANILO 250 MG ORAL TABLET 2 today, then 1 daily for 4 days AZITHROMYCIN 79052371256 No Longer Active Mahsa Alvarez Active AZITHROMYCIN 250 MG ORAL TABLET 2 po qd x 1 day, then 1 po qd x 4 days 07/27 AZITHROMYCIN 65786382472 No Longer Active Carline Best APRN Active GUAIFENESIN ER 600 MG ORAL TABLET EXTENDED RELEASE 12 HOUR 1 twice a day as needed for congestion GUAIFENESIN 74292365396 No Longer Active Sasha Tan APRN Active CYCLOBENZAPRINE HCL 10 MG ORAL TABLET 1 three times a day as needed for muscle spasm CYCLOBENZAPRINE HCL 21020816704 No Longer Active Sasha Tan APRN Active SYMBICORT 160-4.5 MCG/ACT INHALATION AEROSOL 2 puff BID for 10 days BUDESONIDE-FORMOTEROL FUMARATE 86301835881 No Longer Active Rian Ortega MD Active AZITHROMYCIN 250 MG ORAL TABLET 2 po qd x 1 day, then 1 po qd x 4 days 02/15 AZITHROMYCIN 38265661397 No Longer Active Carline Best APRN Active CIPRO 500 MG ORAL TABLET 1 tablet by mouth twice daily CIPROFLOXACIN HCL 66731179655 No Longer Active Tariq Marrero MD Active AZO TABS TABLET 2 tabs qd PHENAZOPYRIDINE HCL TABS 99447266841 No Longer Active Tariq Marrero MD Active CIPROFLOXACIN HCL 250 MG ORAL TABLET 1 twice a day for bladder infection 2016 CIPROFLOXACIN HCL 82255169999 No Longer Active Tariq Marrero MD Active SM VITAMIN B12 TR 1000 MCG ORAL TABLET EXTENDED RELEASE 1 tab po daily 04/24 CYANOCOBALAMIN 12692958336 No Longer Active Nereyda Rodriguez APRN Active CARAFATE 1 GM ORAL TABLET 1 tab po as needed up to 4 times per day SUCRALFATE 94066687150 No Longer Active Nereyda Rodriguez APRN Active PNV PLUS MULTIVITAMIN 27-1 MG ORAL TABLET 1 daily 04/24 VIT-FE FUMARATE-FA 48530951473 No Longer Active Sasha Tan APRN Active CHANTIX STARTING MONTH DANILO 0.5 MG X 11 & 1 MG X 42 ORAL TABLET take as directed VARENICLINE TARTRATE 28066999452 No Longer Active Sasha Tan APRN Active CHANTIX 1 MG ORAL TABLET 1 twice a day to help quit smoking 04/24 VARENICLINE TARTRATE 93229905635 No Longer Active Sasha Tan APRN Active OMEPRAZOLE 20 MG ORAL CAPSULE DELAYED RELEASE 1 tablet by mouth daily OMEPRAZOLE 02431206455 Active Sasha Tan APRN Active FLINSTONES GUMMIES OMEGA-3 DHA ORAL TABLET CHEWABLE 2 gummies per day PEDIATRIC MULTIPLE VIT-C-FA 26974915284 Active Sasha Tan APRN Active CLINDAMYCIN HCL 150 MG ORAL CAPSULE 1 four times a day for 1 week CLINDAMYCIN HCL 84920984338 No Longer Active Karen Jaramillo MD Active TRIAMCINOLONE ACETONIDE 0.1 % EXTERNAL CREAM Apply to affected areas TID for up to 1 week TRIAMCINOLONE ACETONIDE 40382554705 No Longer Active Rian Ortega MD Active ZITHROMAX 1 GM ORAL PACKET Take 1 time and recheck lab in 2-3 weeks AZITHROMYCIN 06903160162 No Longer Active Rian Ortega MD Active FLAGYL 500 MG ORAL TABLET four tabs PO x 1 METRONIDAZOLE 73455552927 No Longer Active Aris Charlton MD Active FLAGYL 500 MG ORAL TABLET four tabs PO x 1 FLAGYL 500 MG ORAL TABLET 702905 METRONIDAZOLE Inactive ZITHROMAX 1 GM ORAL PACKET Take 1 time and recheck lab in 2-3 weeks ZITHROMAX 1 GM ORAL PACKET 314059 AZITHROMYCIN Inactive TRIAMCINOLONE ACETONIDE 0.1 % EXTERNAL CREAM Apply to affected areas TID for up to 1 week TRIAMCINOLONE ACETONIDE 0.1 % EXTERNAL CREAM 4329011 TRIAMCINOLONE ACETONIDE Inactive CLINDAMYCIN HCL 150 MG ORAL CAPSULE 1 four times a day for 1 week CLINDAMYCIN HCL 150 MG ORAL CAPSULE 215867 CLINDAMYCIN HCL Inactive CHANTIX 1 MG ORAL [...] per day CARAFATE 1 GM ORAL TABLET 879556 SUCRALFATE Inactive SM VITAMIN B12 TR 1000 MCG ORAL TABLET EXTENDED RELEASE 1 tab po daily 04/24 SM VITAMIN B12 TR 1000 MCG ORAL TABLET EXTENDED RELEASE CYANOCOBALAMIN Inactive CIPROFLOXACIN HCL 250 MG ORAL TABLET 1 twice a day for bladder infection 2016 CIPROFLOXACIN HCL 250 MG ORAL TABLET 476436 CIPROFLOXACIN HCL Inactive AZO TABS TABLET 2 tabs qd AZO TABS TABLET PHENAZOPYRIDINE HCL TABS Inactive SYMBICORT 160-4.5 MCG/ACT INHALATION AEROSOL 2 puff BID for 10 days SYMBICORT 160-4.5 MCG/ACT INHALATION AEROSOL BUDESONIDE- FORMOTEROL FUMARATE Inactive CYCLOBENZAPRINE HCL 10 MG ORAL TABLET 1 three times a day as needed for muscle spasm CYCLOBENZAPRINE HCL 10 MG ORAL TABLET 274721 CYCLOBENZAPRINE HCL Inactive GUAIFENESIN ER 600 MG ORAL TABLET EXTENDED RELEASE 12 HOUR 1 twice a day as needed for congestion GUAIFENESIN ER 600 MG ORAL TABLET EXTENDED RELEASE 12 HOUR GUAIFENESIN Inactive BACTRIM DS 800-160 MG ORAL TABLET 1 twice a day BACTRIM DS 800-160 MG ORAL TABLET 541989 SULFAMETHOXAZOLE-TRIMETHOPRIM Inactive CIPRO 500 MG ORAL TABLET 1 tablet by mouth twice daily CIPRO 500 MG ORAL TABLET 359757 CIPROFLOXACIN HCL Inactive AZITHROMYCIN 250 MG ORAL TABLET 2 po qd x 1 day, then 1 po qd x 4 days 02/15 AZITHROMYCIN 250 MG ORAL TABLET 690677 AZITHROMYCIN Inactive AZITHROMYCIN 250 MG ORAL TABLET 2 po qd x 1 day, then 1 po qd x 4 days 07/27 AZITHROMYCIN 250 MG ORAL TABLET 860898 AZITHROMYCIN Inactive ZITHROMAX Z-DANILO 250 MG ORAL TABLET 2 today, then 1 daily for 4 days ZITHROMAX Z-DANILO 250 MG ORAL TABLET 097617 AZITHROMYCIN Inactive Immunizations Vaccine Administration Date Value [...] - Hematology leukocyte count, blood sent to [facility] 10^3/mm^3 10*3/mm3 4.6-10.2 Lab Report: CBC, Lipid Panel, Thyroid Stimulating Hormone (L), Free Thyr ... - Chemistry cholesterol, serum 142 mg/dL 535-155 7251/10/24 triglyceride, serum, fasting 77 mg/dL 30-200 HDL [...] Panel - Chemistry sodium, serum 137 mmol/L 536-361 4059/10/24 carbon dioxide, venous blood 24.4 mmol/L 21.0-32.0 [...] 1+ Encounters Code Encounter Date Provider Facility CPT-81419 Level 3 Est. Patient 14:41:20 CDT Tariq Marrero MD [facility] CPT-23120 Level 3 Est. Patient 11:06:09 CUTTER HEAD SHARPENER Carline Best [facility] CPT-09654 Level 3 Est. Patient 15:59:13 CUTTER HEAD SHARPENER Carline Best [facility] CPT-05539 Employment/ICC Exam 15:03:09 CUTTER HEAD SHARPENER Sasha Tan [facility] CPT-15751 Level 3 Est. Patient 11:54:40 CDT Rian Ortega MD [facility] CPT-28507 Level 3 Est. Patient 11:17:51 CDT Carline Best [facility] CPT-37873 Level 3 Est. Patient 15:43:38 CDT Tariq Marrero MD [facility] CPT-71707 Level 3 Est. Patient 11:16:27 CUTTER HEAD SHARPENER Nereyda Rodriguez [facility] CPT-09920 Level 4 Est. Patient 08:56:42 CUTTER HEAD SHARPENER Sasha Tan [facility] CPT-51965 Level 3 Est. Patient 16:40:58 CDT Rian Ortega MD [facility] CPT-26910 Level 3 Est. Patient 13:55:16 CUTTER HEAD SHARPENER Rian Ortega MD [facility] CPT-75002 Level 3 Est. Patient 10:42:52 CDT Corrina Bailon APRN [facility] CPT-93150 Level 3 Est. Patient 11:18:30 CDT Aris Charlton MD [facility] Procedures Code Procedure Name Date Entry Date Standard Description CPT-04300 Prv Med Est Pt 40-64yrs 16:49:40 CDT CPT-02144 UA w micro - LAB USE ONLY 13:09:18 CUTTER HEAD SHARPENER CPT-15944 Urine Culture - LAB USE ONLY 13:09:18 CUTTER HEAD SHARPENER CPT-82704 Wet Mount - LAB USE ONLY 11:11:39 CUTTER HEAD SHARPENER CPT-58637 Lipid - LAB USE ONLY 15:05:24 CUTTER HEAD SHARPENER CPT-14054 PT/INR - LAB USE ONLY 12:14:07 CDT CPT-46106 HGBA1C - LAB USE ONLY 12:14:07 CDT CPT-42995 CMP - LAB USE ONLY 12:14:07 CDT CPT-69880 CBC - LAB USE ONLY 12:14:07 CDT CPT-93707 Venipuncture Draw Fee 12:14:06 CDT CPT-J0702 Celestone 6 mg (Betamethasone) 15:04:45 CUTTER HEAD SHARPENER CPT-28156 Abx/Therapy Injection 15:04:45 CUTTER HEAD SHARPENER CPT-J0702 Celestone 12 mg (Betamethasone) 11:45:31 CUTTER HEAD SHARPENER CPT-81947 Visit 11:39:52 CUTTER HEAD SHARPENER CPT-00626J Sono biophysical pro wo stress test-[place] Only 11:21: 42 CUTTER HEAD SHARPENER CPT-25306 Visit 16:00:50 CUTTER HEAD SHARPENER CPT-08433X Sono biophysical pro wo stress test-[facility] 13:12: 18 CUTTER HEAD SHARPENER CPT-73901 Sono biophysical pro wo stress test 11:17:21 CUTTER HEAD SHARPENER 05/21 CPT-04320 Tdap 7yrs or > 15:22:51 CUTTER HEAD SHARPENER CPT-22772 Immunization Single Admin 15:22:51 CUTTER HEAD SHARPENER CPT-18345 Tdap 7yrs or > 15:09:13 CUTTER HEAD SHARPENER CPT-85810 Visit 14:54:16 CUTTER HEAD SHARPENER CPT-16542 Fluzone Quadrivalent Intramuscular Suspension 0.5 ML 16: 58:58 CDT CPT-23400 Administration single or combination vaccine inc oral 16 :58:58 CDT CPT-52977 Fluzone Thim Free 36mo and older 14:47:39 CDT CPT-54583 Visit 14:47:39 CDT CPT-19943 Sono OB limited 10:30:07 CDT CPT-85103 Visit 10:04:44 CDT CPT-08996 Sono OB comp > 14 weeks 12:50:41 CDT CPT-92300 Visit 12:06:25 CDT CPT-76162 Visit 12:43:15 CDT CPT-58784 Visit 10:06:02 CDT CPT-63157 Spec Collection and Handling Fee 10:00:31 CDT CPT-03966 Visit 10:00:30 CDT CPT-35434 Drug Screen [place] 14:36:13 CDT
--- OUTSIDE RECORDS SUMMARY | 2018-08-28 06:50 | XMS REPORT | Clinical Summary ---
Author Author Admin, E Organization [facility] Address Unknown Phone Unavailable Allergies, Adverse Reactions, [...] Active Rian Ortega MD Tobacco use disorder Chief Relay Tester well woman exam V72.31 Active Sasha Tan [...] ORAL TABLET 1 twice a day SULFAMETHOXAZOLE-TRIMETHOPRIM 44462524926 No Longer Active Irma Michaels Active ZITHROMAX Z-DANILO 250 MG ORAL TABLET 2 today, then 1 daily for 4 days AZITHROMYCIN 48921288433 No Longer Active Mhasa Alvarez Active AZITHROMYCIN 250 MG ORAL TABLET 2 po qd x 1 day, then 1 po qd x 4 days 07/27 AZITHROMYCIN 82774724390 No Longer Active Carline Best APRN Active GUAIFENESIN ER 600 MG ORAL TABLET EXTENDED RELEASE 12 HOUR 1 twice a day as needed for congestion GUAIFENESIN 38115451588 No Longer Active Sasha Tan APRN Active CYCLOBENZAPRINE HCL 10 MG ORAL TABLET 1 three times a day as needed for muscle spasm CYCLOBENZAPRINE HCL 79881459661 No Longer Active Sasha Tan APRN Active SYMBICORT 160-4.5 MCG/ACT INHALATION AEROSOL 2 puff BID for 10 days BUDESONIDE-FORMOTEROL FUMARATE 81860462070 No Longer Active Rian Ortega MD Active AZITHROMYCIN 250 MG ORAL TABLET 2 po qd x 1 day, then 1 po qd x 4 days 02/15 AZITHROMYCIN 82982532004 No Longer Active Carline Best APRN Active CIPRO 500 MG ORAL TABLET 1 tablet by mouth twice daily CIPROFLOXACIN HCL 70451135955 No Longer Active Tariq Marrero MD Active AZO TABS TABLET 2 tabs qd PHENAZOPYRIDINE HCL TABS 35998695319 No Longer Active Tariq Marrero MD Active CIPROFLOXACIN HCL 250 MG ORAL TABLET 1 twice a day for bladder infection 2016 CIPROFLOXACIN HCL 02746952351 No Longer Active Tariq Marrero MD Active SM VITAMIN B12 TR 1000 MCG ORAL TABLET EXTENDED RELEASE 1 tab po daily 04/24 CYANOCOBALAMIN 24004368420 No Longer Active Nereyda Rodriguez APRN Active CARAFATE 1 GM ORAL TABLET 1 tab po as needed up to 4 times per day SUCRALFATE 74164167568 No Longer Active Nereyda Rodriguez APRN Active PNV PLUS MULTIVITAMIN 27-1 MG ORAL TABLET 1 daily 04/24 VIT-FE FUMARATE-FA 61156663632 No Longer Active Sasha Tan APRN Active CHANTIX STARTING MONTH DANILO 0.5 MG X 11 & 1 MG X 42 ORAL TABLET take as directed VARENICLINE TARTRATE 56146703120 No Longer Active Sasha Tan APRN Active CHANTIX 1 MG ORAL TABLET 1 twice a day to help quit smoking 04/24 VARENICLINE TARTRATE 47480148483 No Longer Active Sasha Tan APRN Active OMEPRAZOLE 20 MG ORAL CAPSULE DELAYED RELEASE 1 tablet by mouth daily OMEPRAZOLE 54272970021 Active Sasha Tan APRN Active FLINSTONES GUMMIES OMEGA-3 DHA ORAL TABLET CHEWABLE 2 gummies per day PEDIATRIC MULTIPLE VIT-C-FA 48153935138 Active Sasha Tan APRN Active CLINDAMYCIN HCL 150 MG ORAL CAPSULE 1 four times a day for 1 week CLINDAMYCIN HCL 11391941714 No Longer Active Karen Jaramillo MD Active TRIAMCINOLONE ACETONIDE 0.1 % EXTERNAL CREAM Apply to affected areas TID for up to 1 week TRIAMCINOLONE ACETONIDE 96053930289 No Longer Active Rian Ortega MD Active ZITHROMAX 1 GM ORAL PACKET Take 1 time and recheck lab in 2-3 weeks AZITHROMYCIN 04967694229 No Longer Active Rian Ortega MD Active FLAGYL 500 MG ORAL TABLET four tabs PO x 1 METRONIDAZOLE 24200710252 No Longer Active Aris Charlton MD Active FLAGYL 500 MG ORAL TABLET four tabs PO x 1 FLAGYL 500 MG ORAL TABLET 832902 METRONIDAZOLE Inactive ZITHROMAX 1 GM ORAL PACKET Take 1 time and recheck lab in 2-3 weeks ZITHROMAX 1 GM ORAL PACKET 811925 AZITHROMYCIN Inactive TRIAMCINOLONE ACETONIDE 0.1 % EXTERNAL CREAM Apply to affected areas TID for up to 1 week TRIAMCINOLONE ACETONIDE 0.1 % EXTERNAL CREAM 0213666 TRIAMCINOLONE ACETONIDE Inactive CLINDAMYCIN HCL 150 MG ORAL CAPSULE 1 four times a day for 1 week CLINDAMYCIN HCL 150 MG ORAL CAPSULE 909285 CLINDAMYCIN HCL Inactive CHANTIX 1 MG ORAL [...] per day CARAFATE 1 GM ORAL TABLET 970036 SUCRALFATE Inactive SM VITAMIN B12 TR 1000 MCG ORAL TABLET EXTENDED RELEASE 1 tab po daily 04/24 SM VITAMIN B12 TR 1000 MCG ORAL TABLET EXTENDED RELEASE CYANOCOBALAMIN Inactive CIPROFLOXACIN HCL 250 MG ORAL TABLET 1 twice a day for bladder infection 2016 CIPROFLOXACIN HCL 250 MG ORAL TABLET 384781 CIPROFLOXACIN HCL Inactive AZO TABS TABLET 2 tabs qd AZO TABS TABLET PHENAZOPYRIDINE HCL TABS Inactive SYMBICORT 160-4.5 MCG/ACT INHALATION AEROSOL 2 puff BID for 10 days SYMBICORT 160-4.5 MCG/ACT INHALATION AEROSOL BUDESONIDE- FORMOTEROL FUMARATE Inactive CYCLOBENZAPRINE HCL 10 MG ORAL TABLET 1 three times a day as needed for muscle spasm CYCLOBENZAPRINE HCL 10 MG ORAL TABLET 003696 CYCLOBENZAPRINE HCL Inactive GUAIFENESIN ER 600 MG ORAL TABLET EXTENDED RELEASE 12 HOUR 1 twice a day as needed for congestion GUAIFENESIN ER 600 MG ORAL TABLET EXTENDED RELEASE 12 HOUR GUAIFENESIN Inactive BACTRIM DS 800-160 MG ORAL TABLET 1 twice a day BACTRIM DS 800-160 MG ORAL TABLET 761903 SULFAMETHOXAZOLE-TRIMETHOPRIM Inactive CIPRO 500 MG ORAL TABLET 1 tablet by mouth twice daily CIPRO 500 MG ORAL TABLET 604614 CIPROFLOXACIN HCL Inactive AZITHROMYCIN 250 MG ORAL TABLET 2 po qd x 1 day, then 1 po qd x 4 days 02/15 AZITHROMYCIN 250 MG ORAL TABLET 713007 AZITHROMYCIN Inactive AZITHROMYCIN 250 MG ORAL TABLET 2 po qd x 1 day, then 1 po qd x 4 days 07/27 AZITHROMYCIN 250 MG ORAL TABLET 648366 AZITHROMYCIN Inactive ZITHROMAX Z-DANILO 250 MG ORAL TABLET 2 today, then 1 daily for 4 days ZITHROMAX Z-DANILO 250 MG ORAL TABLET 010387 AZITHROMYCIN Inactive Immunizations Vaccine Administration Date Value [...] Hematology leukocyte count, blood sent to [facility] 10^3/mm^3 10*3/mm3 4.6-10.2 Lab Report: CBC, Lipid Panel, Thyroid Stimulating Hormone (L), Free Thyr ... - Chemistry cholesterol, serum 142 mg/dL 296-438 1629/10/24 triglyceride, serum, fasting 77 mg/dL 30-200 HDL [...] Panel - Chemistry sodium, serum 137 mmol/L 224-318 2846/10/24 carbon dioxide, venous blood 24.4 mmol/L 21.0-32.0 [...] 1+ Encounters Code Encounter Date Provider Facility CPT-22718 Level 3 Est. Patient 14:41:20 CDT Tariq Marrero MD [facility] CPT-95178 Level 3 Est. Patient 11:06:09 LOW [employer]IT[employer]DE [employer] DEFENSE GUNNER Carline Best [facility] CPT-04687 Level 3 Est. Patient 15:59:13 LOW [employer]IT[employer]DE [employer] DEF[employer] GUNNER Carline Best [facility] CPT-07784 Employment/ICC Exam 15:03:09 LOW [employer]IT[employer]DE [employer] DEF[employer] G[employer]NER Sasha Tan [facility] CPT-38391 Level 3 Est. Patient 11:54:40 CDT Rian Ortega MD [facility] CPT-34000 Level 3 Est. Patient 11:17:51 CDT Carline Best [facility] CPT-95318 Level 3 Est. Patient 15:43:38 CDT Tariq Marrero MD [facility] CPT-59301 Level 3 Est. Patient 11:16:27 LOW [employer]IT[employer] G[employer]NER Nereyda Rodriguez [facility] CPT-23618 Level 4 Est. Patient 08:56:42 LOW [employer]IT[employer] G[employer]NER Sasha Tan [facility] CPT-86770 Level 3 Est. Patient 16:40:58 CDT Rian Ortega MD [facility] CPT-48661 Level 3 Est. Patient 13:55:16 LOW [employer] G[employer]NER Rian Ortega MD [facility] CPT-18951 Level 3 Est. Patient 10:42:52 CDT Corrina Bailon APRN [facility] CPT-05343 Level 3 Est. Patient 11:18:30 CDT Aris Charlton MD [facility] Procedures Code Procedure Name Date Entry Date Standard Description CPT-95803 Prv Med Est Pt 40-64yrs 16:49:40 CDT CPT-02782 UA w micro - LAB USE ONLY 13:09:18 LOW [employer] G[employer]NER CPT-05557 Urine Culture - LAB USE ONLY 13:09:18 LOW [employer]IT[employer] G[employer]NER CPT-94312 Wet Mount - LAB USE ONLY 11:11:39 LOW [employer] CPT-59756 Lipid - LAB USE ONLY 15:05:24 LOW [employer] G[employer] CPT-22987 PT/INR - LAB USE ONLY 12:14:07 CDT CPT-69270 HGBA1C - LAB USE ONLY 12:14:07 CDT CPT-03127 CMP - LAB USE ONLY 12:14:07 CDT CPT-06544 CBC - LAB USE ONLY 12:14:07 CDT CPT-56183 Venipuncture Draw Fee 12:14:06 CDT CPT-J0702 Celestone 6 mg (Betamethasone) 15:04:45 LOW [employer] CPT-39893 Abx/Therapy Injection 15:04:45 LOW [employer]IT[employer] G[employer]NER CPT-J0702 Celestone 12 mg (Betamethasone) 11:45:31 LOW [employer] G[employer] CPT-19259 Visit 11:39:52 LOW [employer] G[employer]NER CPT-02824E Sono biophysical pro wo stress test-[place] Only 11:21: 42 LOW [employer] G[employer]NER CPT-10063 Visit 16:00:50 LOW [employer] G[employer]NER CPT-02420H Sono biophysical pro wo stress test-[facility] 13:12: 18 LOW [employer] G[employer]NER CPT-87235 Sono biophysical pro wo stress test 11:17:21 LOW [employer] G[employer]NER 05/21 CPT-68299 Tdap 7yrs or > 15:22:51 LOW [employer] CPT-59468 Immunization Single Admin 15:22:51 LOW [employer] G[employer]NER CPT-60712 Tdap 7yrs or > 15:09:13 LOW [employer] G[employer]NER CPT-49003 Visit 14:54:16 LOW [employer] G[employer]NER CPT-78058 Fluzone Quadrivalent Intramuscular Suspension 0.5 ML 16: 58:58 CDT CPT-15452 Administration single or combination vaccine inc oral 16 :58:58 CDT CPT-25643 Fluzone Thim Free 36mo and older 14:47:39 CDT CPT-77901 Visit 14:47:39 CDT CPT-68803 Sono OB limited 10:30:07 CDT CPT-61800 Visit 10:04:44 CDT CPT-74785 Sono OB comp > 14 weeks 12:50:41 CDT CPT-80332 Visit 12:06:25 CDT CPT-90552 Visit 12:43:15 CDT CPT-11043 Visit 10:06:02 CDT CPT-01063 Spec Collection and Handling Fee 10:00:31 CDT CPT-77140 Visit 10:00:30 CDT CPT-76315 Drug Screen Grisel 14:36:13 CDT
--- OUTSIDE RECORDS SUMMARY | 2018-08-28 06:51 | XMS REPORT | Clinical Summary ---
Author Author Admin, E Organization [facility] Address Unknown Phone Unavailable Allergies, Adverse Reactions, [...] Active Rian Ortega MD Tobacco use disorder Conical Mixer well woman exam V72.31 Active Sasha Tan [...] ORAL TABLET 1 twice a day SULFAMETHOXAZOLE-TRIMETHOPRIM 68067906014 Active Angelica Jarrett LPN Active ZITHROMAX Z-DANILO 250 MG ORAL TABLET 2 today, then 1 daily for 4 days AZITHROMYCIN 89762294714 No Longer Active Mahsa Alvarez Active AZITHROMYCIN 250 MG ORAL TABLET 2 po qd x 1 day, then 1 po qd x 4 days 07/27 AZITHROMYCIN 14401004178 No Longer Active Carline Best APRN Active GUAIFENESIN ER 600 MG ORAL TABLET EXTENDED RELEASE 12 HOUR 1 twice a day as needed for congestion GUAIFENESIN 10288641728 No Longer Active Sasha Tan APRN Active CYCLOBENZAPRINE HCL 10 MG ORAL TABLET 1 three times a day as needed for muscle spasm CYCLOBENZAPRINE HCL 57851520125 No Longer Active Sasha Tan APRN Active SYMBICORT 160-4.5 MCG/ACT INHALATION AEROSOL 2 puff BID for 10 days BUDESONIDE-FORMOTEROL FUMARATE 72287771162 No Longer Active Rian Ortega MD Active AZITHROMYCIN 250 MG ORAL TABLET 2 po qd x 1 day, then 1 po qd x 4 days 02/15 AZITHROMYCIN 22771829386 No Longer Active Carline Best APRN Active CIPRO 500 MG ORAL TABLET 1 tablet by mouth twice daily CIPROFLOXACIN HCL 66592848403 No Longer Active Tariq Marrero MD Active AZO TABS TABLET 2 tabs qd PHENAZOPYRIDINE HCL TABS 82290632284 No Longer Active Tariq Marrero MD Active CIPROFLOXACIN HCL 250 MG ORAL TABLET 1 twice a day for bladder infection 2016 CIPROFLOXACIN HCL 88178527510 No Longer Active Tariq Marrero MD Active SM VITAMIN B12 TR 1000 MCG ORAL TABLET EXTENDED RELEASE 1 tab po daily 04/24 CYANOCOBALAMIN 89227692708 No Longer Active Nereyda Rodriguez APRN Active CARAFATE 1 GM ORAL TABLET 1 tab po as needed up to 4 times per day SUCRALFATE 49653310280 No Longer Active Nereyda Rodriguez APRN Active PNV PLUS MULTIVITAMIN 27-1 MG ORAL TABLET 1 daily 04/24 VIT-FE FUMARATE-FA 77541062019 No Longer Active Sasha Tan APRN Active CHANTIX STARTING MONTH DANILO 0.5 MG X 11 & 1 MG X 42 ORAL TABLET take as directed VARENICLINE TARTRATE 81059451545 No Longer Active Sasha Tan APRN Active CHANTIX 1 MG ORAL TABLET 1 twice a day to help quit smoking 04/24 VARENICLINE TARTRATE 23935133631 No Longer Active Sasha Tan APRN Active OMEPRAZOLE 20 MG ORAL CAPSULE DELAYED RELEASE 1 tablet by mouth daily OMEPRAZOLE 29753512881 Active Sasha Tan APRN Active FLINSTONES GUMMIES OMEGA-3 DHA ORAL TABLET CHEWABLE 2 gummies per day PEDIATRIC MULTIPLE VIT-C-FA 55028700221 Active Sasha Tan APRN Active CLINDAMYCIN HCL 150 MG ORAL CAPSULE 1 four times a day for 1 week CLINDAMYCIN HCL 06965222698 No Longer Active Karen Jaramillo MD Active TRIAMCINOLONE ACETONIDE 0.1 % EXTERNAL CREAM Apply to affected areas TID for up to 1 week TRIAMCINOLONE ACETONIDE 89478307161 No Longer Active Rian Ortega MD Active ZITHROMAX 1 GM ORAL PACKET Take 1 time and recheck lab in 2-3 weeks AZITHROMYCIN 82423636951 No Longer Active Rian Ortega MD Active FLAGYL 500 MG ORAL TABLET four tabs PO x 1 METRONIDAZOLE 53723336885 No Longer Active Aris Charlton MD Active FLAGYL 500 MG ORAL TABLET four tabs PO x 1 FLAGYL 500 MG ORAL TABLET 609285 METRONIDAZOLE Inactive ZITHROMAX 1 GM ORAL PACKET Take 1 time and recheck lab in 2-3 weeks ZITHROMAX 1 GM ORAL PACKET 365296 AZITHROMYCIN Inactive TRIAMCINOLONE ACETONIDE 0.1 % EXTERNAL CREAM Apply to affected areas TID for up to 1 week TRIAMCINOLONE ACETONIDE 0.1 % EXTERNAL CREAM 7974592 TRIAMCINOLONE ACETONIDE Inactive CLINDAMYCIN HCL 150 MG ORAL CAPSULE 1 four times a day for 1 week CLINDAMYCIN HCL 150 MG ORAL CAPSULE 844164 CLINDAMYCIN HCL Inactive CHANTIX 1 MG ORAL [...] per day CARAFATE 1 GM ORAL TABLET 896772 SUCRALFATE Inactive SM VITAMIN B12 TR 1000 MCG ORAL TABLET EXTENDED RELEASE 1 tab po daily 04/24 SM VITAMIN B12 TR 1000 MCG ORAL TABLET EXTENDED RELEASE CYANOCOBALAMIN Inactive CIPROFLOXACIN HCL 250 MG ORAL TABLET 1 twice a day for bladder infection 2016 CIPROFLOXACIN HCL 250 MG ORAL TABLET 658735 CIPROFLOXACIN HCL Inactive AZO TABS TABLET 2 tabs qd AZO TABS TABLET PHENAZOPYRIDINE HCL TABS Inactive SYMBICORT 160-4.5 MCG/ACT INHALATION AEROSOL 2 puff BID for 10 days SYMBICORT 160-4.5 MCG/ACT INHALATION AEROSOL BUDESONIDE- FORMOTEROL FUMARATE Inactive CYCLOBENZAPRINE HCL 10 MG ORAL TABLET 1 three times a day as needed for muscle spasm CYCLOBENZAPRINE HCL 10 MG ORAL TABLET 876412 CYCLOBENZAPRINE HCL Inactive GUAIFENESIN ER 600 MG ORAL TABLET EXTENDED RELEASE 12 HOUR 1 twice a day as needed for congestion GUAIFENESIN ER 600 MG ORAL TABLET EXTENDED RELEASE 12 HOUR GUAIFENESIN Inactive CIPRO 500 MG ORAL TABLET 1 tablet by mouth twice daily CIPRO 500 MG ORAL TABLET 950888 CIPROFLOXACIN HCL Inactive AZITHROMYCIN 250 MG ORAL TABLET 2 po qd x 1 day, then 1 po qd x 4 days 02/15 AZITHROMYCIN 250 MG ORAL TABLET 271439 AZITHROMYCIN Inactive AZITHROMYCIN 250 MG ORAL TABLET 2 po qd x 1 day, then 1 po qd x 4 days 07/27 AZITHROMYCIN 250 MG ORAL TABLET 371919 AZITHROMYCIN Inactive ZITHROMAX Z-DANILO 250 MG ORAL TABLET 2 today, then 1 daily for 4 days ZITHROMAX Z-DANILO 250 MG ORAL TABLET 587097 AZITHROMYCIN Inactive Immunizations Vaccine Administration Date Value [...] leukocyte count, blood sent to [facility] 10^3/mm^3 10*3/mm3 4.6-10.2 Lab Report: CBC, Lipid Panel, Thyroid Stimulating Hormone (L), Free Thyr ... - Chemistry cholesterol, serum 142 mg/dL 697-558 9261/10/24 triglyceride, serum, fasting 77 mg/dL 30-200 HDL [...] 24.4 mmol/L 21.0-32.0 sodium, serum 137 mmol/L 907-115 0097/10/24 creatinine, serum 0.82 mg/dL 0.60-1.30 alanine aminotransferase (SGPT), serum 29 U/L 12-78 aspartate aminotransferase (SGOT), serum 16 U/L 15-37 calcium, serum 8.4 mg/dL 8.5-10.1 bilirubin, serum, total 0.60 mg/dL 0.00-1.00 potassium, serum 4.7 mmol/L 3.5-5.2 chloride, serum 104 mmol/L 98-107 blood glucose 85 mg/dL 65-110 urea nitrogen, blood 11 mg/dL 7-18 Lab Report: ELIAZAR INFLUENZA A/B - Toxicology [...] 1+ Encounters Code Encounter Date Provider Facility CPT-54320 Level 3 Est. Patient 14:41:20 CDT Tariq Marrero MD [facility] CPT-61163 Level 3 Est. Patient 11:06:09 OCCUPATIONAL HEALTH NURSE Carline Best [facility] CPT-42199 Level 3 Est. Patient 15:59:13 OCCUPATIONAL HEALTH NURSE Carline Best [facility] CPT-45441 Employment/ICC Exam 15:03:09 OCCUPATIONAL HEALTH NURSE Sasha Tan [facility] CPT-02733 Level 3 Est. Patient 11:54:40 CDT Rian Ortega MD [facility] CPT-20847 Level 3 Est. Patient 11:17:51 CDT Carline Best [facility] CPT-07150 Level 3 Est. Patient 15:43:38 CDT Tariq Marrero MD [facility] CPT-41635 Level 3 Est. Patient 11:16:27 OCCUPATIONAL HEALTH NURSE Nereyda Rodriguez [facility] CPT-26303 Level 4 Est. Patient 08:56:42 OCCUPATIONAL HEALTH NURSE Sasha Tan [facility] CPT-84983 Level 3 Est. Patient 16:40:58 CDT Rian Ortega MD [facility] CPT-63710 Level 3 Est. Patient 13:55:16 OCCUPATIONAL HEALTH NURSE Rian Ortega MD [facility] CPT-55360 Level 3 Est. Patient 10:42:52 CDT Corrina Bailon [facility] CPT-91256 Level 3 Est. Patient 11:18:30 CDT Aris Charlton MD [facility] Procedures Code Procedure Name Date Entry Date Standard Description CPT-16693 UA w micro - LAB USE ONLY 13:09:18 OCCUPATIONAL HEALTH NURSE CPT-79801 Urine Culture - LAB USE ONLY 13:09:18 OCCUPATIONAL HEALTH NURSE CPT-86292 [place] - LAB USE ONLY 11:11:39 OCCUPATIONAL HEALTH NURSE CPT-85537 Lipid - LAB USE ONLY 15:05:24 OCCUPATIONAL HEALTH NURSE CPT-12157 PT/INR - LAB USE ONLY 12:14:07 CDT CPT-36337 HGBA1C - LAB USE ONLY 12:14:07 CDT CPT-40967 CMP - LAB USE ONLY 12:14:07 CDT CPT-55708 CBC - LAB USE ONLY 12:14:07 CDT CPT-11510 Venipuncture Draw Fee 12:14:06 CDT CPT-J0702 Celestone 6 mg (Betamethasone) 15:04:45 OCCUPATIONAL HEALTH NURSE CPT-01753 Abx/Therapy Injection 15:04:45 OCCUPATIONAL HEALTH NURSE CPT-J0702 Celestone 12 mg (Betamethasone) 11:45:31 OCCUPATIONAL HEALTH NURSE CPT-64926 Visit 11:39:52 OCCUPATIONAL HEALTH NURSE CPT-19352F Sono biophysical pro wo stress test-[place] Only 11:21: 42 OCCUPATIONAL HEALTH NURSE CPT-28201 Visit 16:00:50 OCCUPATIONAL HEALTH NURSE CPT-99772M [employer]o bi[employer] pro wo stress test-[place] Only 13:12: 18 OCCUPATIONAL HEALTH NURSE CPT-02648 Sono biophysical pro wo stress test 11:17:21 OCCUPATIONAL HEALTH NURSE 05/21 CPT-67818 Tdap 7yrs or > 15:22:51 OCCUPATIONAL HEALTH NURSE CPT-99003 Immunization Single Admin 15:22:51 OCCUPATIONAL HEALTH NURSE CPT-66455 Tdap 7yrs or > 15:09:13 OCCUPATIONAL HEALTH NURSE CPT-82967 Visit 14:54:16 OCCUPATIONAL HEALTH NURSE CPT-80262 Fluzone Quadrivalent Intramuscular Suspension 0.5 ML 16: 58:58 CDT CPT-11512 Administration single or combination vaccine inc oral 16 :58:58 CDT CPT-00255 Fluzone Thim Free 36mo and older 14:47:39 CDT CPT-48881 Visit 14:47:39 CDT CPT-31561 Sono OB limited 10:30:07 CDT CPT-42575 Visit 10:04:44 CDT CPT-36788 Sono OB comp > 14 weeks 12:50:41 CDT CPT-35374 Visit 12:06:25 CDT CPT-20304 Visit 12:43:15 CDT CPT-59376 Visit 10:06:02 CDT CPT-33680 Spec Collection and Handling Fee 10:00:31 CDT CPT-72646 Visit 10:00:30 CDT CPT-87310 Drug Screen [place] 14:36:13 CDT
--- OUTSIDE RECORDS SUMMARY | 2018-08-28 06:52 | XMS REPORT | Clinical Summary ---
Author Author Admin, [facility] Organization [facility] Address Unknown Phone Unavailable Allergies, [...] Active Rian Ortega MD Tobacco use disorder Cherry Pitter well woman exam V72.31 Active Sasha Espitia SALES WAREHOUSE DRIVER Routine gynecological examination Bariatric operative procedure V45.86 [...] MG ORAL TABS 1 daily VIT-FE FUMARATE-FA 84240597120 No Longer Active Sasha Espitia APRN Active CHANTIX STARTING MONTH DANILO 0.5 MG X 11 & 1 MG X 42 TABS take as directed 2015 VARENICLINE TARTRATE 08586599088 No Longer Active Sasha Espitia APRN Active CHANTIX 1 MG TABS 1 twice a day to help quit smoking VARENICLINE TARTRATE 03485854074 No Longer Active Sasha Omkar SALES WAREHOUSE DRIVER Active OMEPRAZOLE 20 MG CPDR 1 tablet by mouth daily OMEPRAZOLE 94091095403 Active Sasha Espitia SALES WAREHOUSE DRIVER Active CARAFATE 1 GM TAB 1 tab po as needed up to 4 times per day SUCRALFATE 95090376494 Active Sasha Espitia SALES WAREHOUSE DRIVER Active FLINSTONES GUMMIES OMEGA-3 DHA ORAL CHEW 2 gummies per day PEDIATRIC MULTIPLE VIT-C-FA 80037414177 Active Sasha Espitia SALES WAREHOUSE DRIVER Active SM VITAMIN B12 TR 1000 MCG ORAL CR-TABS 1 tab po daily CYANOCOBALAMIN 71420411565 Active Sasha Espitia BETO Active CLINDAMYCIN HCL 150 MG CAPS 1 four times a day for 1 week CLINDAMYCIN HCL 89268365518 No Longer Active Karen Jaramillo MD Active TRIAMCINOLONE ACETONIDE 0.1 % CREA Apply to affected areas TID for up to 1 week TRIAMCINOLONE ACETONIDE 14509359067 No Longer Active Rian Ortega MD Active ZITHROMAX 1 GM ORAL PACK Take 1 time and recheck lab in 2-3 weeks AZITHROMYCIN 61550158959 No Longer Active Rian Ortega MD Active FLAGYL 500 MG TAB four tabs PO x 1 METRONIDAZOLE 74356593095 No Longer Active Aris Charlton MD Active FLAGYL 500 MG TAB four tabs PO x 1 FLAGYL 500 MG TAB 062654 METRONIDAZOLE Inactive ZITHROMAX 1 GM ORAL PACK Take 1 time and recheck lab in 2-3 weeks ZITHROMAX 1 GM ORAL PACK 231508 AZITHROMYCIN Inactive TRIAMCINOLONE ACETONIDE 0.1 % CREA Apply to affected areas TID for up to 1 week TRIAMCINOLONE ACETONIDE 0.1 % CREA 0236460 TRIAMCINOLONE ACETONIDE Inactive CLINDAMYCIN HCL 150 MG CAPS 1 four times a day for 1 week CLINDAMYCIN HCL 150 MG CAPS 061160 CLINDAMYCIN HCL Inactive CHANTIX 1 MG TABS [...] HGBA1C - Chemistry sodium, serum 142 mmol/L 624-107 3653 carbon dioxide, venous blood 32.8 mmol/L 21.0-32.0 [...] Panel - Chemistry cholesterol, serum 165 mg/dL 170-843 1851 triglyceride, serum, fasting 124 mg/dL 30-200 HDL [...] N Encounters Code Encounter Date Provider Facility CPT-44900 Level 3 Est. Patient 16:40:58 CDT Rian Ortega MD [facility] CPT-81065 Level 3 Est. Patient 13:55:16 MILLINERY DEPARTMENT MANAGER Rian Ortega MD [facility] CPT-34169 Level 3 Est. Patient 10:42:52 CDT Corrina Bailon APRN [facility] CPT-04232 Level 3 Est. Patient 11:18:30 CDT Aris Charlton MD [facility] Procedures Code Procedure Name Date Entry Date Standard Description CPT-33140 Lipid - LAB USE ONLY 15:05:24 MILLINERY DEPARTMENT MANAGER CPT-21472 PT/INR - LAB USE ONLY 12:14:07 CDT CPT-79606 HGBA1C - LAB USE ONLY 12:14:07 CDT CPT-20763 CMP - LAB USE ONLY 12:14:07 CDT CPT-36961 CBC - LAB USE ONLY 12:14:07 CDT CPT-95323 Venipuncture Draw Fee 12:14:06 CDT CPT-J0702 Celestone 6 mg (Betamethasone) 15:04:45 MILLINERY DEPARTMENT MANAGER CPT-65939 Abx/Therapy Injection 15:04:45 MILLINERY DEPARTMENT MANAGER CPT-J0702 Celestone 12 mg (Betamethasone) 11:45:31 MILLINERY DEPARTMENT MANAGER CPT-47417 Visit 11:39:52 MILLINERY DEPARTMENT MANAGER CPT-58190F Sono biophysical pro wo stress test-[place] Only 11:21: 42 MILLINERY DEPARTMENT MANAGER CPT-80486 Visit 16:00:50 MILLINERY DEPARTMENT MANAGER CPT-94840Z Sono biophysical pro wo stress test-[facility] 13:12: 18 MILLINERY DEPARTMENT MANAGER CPT-77688 Sono biophysical pro wo stress test 11:17:21 MILLINERY DEPARTMENT MANAGER 05/21 CPT-77517 Tdap 7yrs or > 15:22:51 MILLINERY DEPARTMENT MANAGER CPT-56633 Immunization Single Admin 15:22:51 MILLINERY DEPARTMENT MANAGER CPT-78760 Tdap 7yrs or > 15:09:13 MILLINERY DEPARTMENT MANAGER CPT-16136 Visit 14:54:16 MILLINERY DEPARTMENT MANAGER CPT-77469 Fluzone Quadrivalent Intramuscular Suspension 0.5 ML 16: 58:58 CDT CPT-07995 Administration single or combination vaccine inc oral 16 :58:58 CDT CPT-52304 Fluzone Thim Free 36mo and older 14:47:39 CDT CPT-66454 Visit 14:47:39 CDT CPT-68343 Sono OB limited 10:30:07 CDT CPT-17305 Visit 10:04:44 CDT CPT-71139 Sono OB comp > 14 weeks 12:50:41 CDT CPT-11224 Visit 12:06:25 CDT CPT-61214 Visit 12:43:15 CDT CPT-05057 Visit 10:06:02 CDT CPT-16321 Spec Collection and Handling Fee 10:00:31 CDT CPT-71872 Visit 10:00:30 CDT CPT-37708 Drug Screen [place] 14:36:13 CDT
--- OUTSIDE RECORDS SUMMARY | 2018-08-28 06:52 | XMS REPORT | Clinical Summary ---
Author Author Admin, E Organization [facility] Address Unknown Phone Unavailable Allergies, Adverse [...] and recheck lab in 2-3 weeks AZITHROMYCIN 28400747857 Active Carolina Mayfield LPN Active TRIAMCINOLONE ACETONIDE 0.1 % CREA Apply to affected areas TID for up to 1 week TRIAMCINOLONE ACETONIDE 40111188187 Active Aris Charlton MD Active PNV PLUS MULTIVITAMIN 27-1 MG ORAL TABS 1 daily VIT-FE FUMARATE-FA 20496698620 Active Aris Charlton MD Active FLAGYL 500 MG TAB four tabs PO x 1 METRONIDAZOLE 75789705870 No Longer Active Aris Charlton MD Active FLAGYL 500 MG TAB four tabs PO x 1 FLAGYL 500 MG TAB 812699 METRONIDAZOLE Inactive Immunizations Vaccine Administration Date Value [...] % 11.0-15.0 platelet count 307 THOUSAND/UL 10*3/mm3 757-809 2064/05/26 mean platelet volume 8.9 fL 7.5-11.5 Blood [...] ... - Chemistry sodium, serum 137 mmol/L 702-964 5225/08/28 potassium, serum 4.3 mmol/L 3.5-5.2 chloride, serum [...] 325 10^3/MM^3 10*3/mm3 142-424 Lab Report: Chlamydia/GC APTIMA/34546 - Lab chlamydia DNA probe NOT DETECTED NOT DETECTED chlamydia DNA probe DETECTED NOT DETECTED Lab Report: Chlamydia/GC APTIMA/20120 - Microbiology Neisseria gonorrhoeae DNA probe NOT [...] pH, urine, semiquantitative 7.0 5.0-8.5 Lab Report: [facility] [place] - Chemistry human [...] N Encounters Code Encounter Date Provider Facility CPT-77883 Level 3 Est. Patient 10:42:52 CDT Corrina Bailon APRN [facility] CPT-64135 Level 3 Est. Patient 11:18:30 CDT Aris Charlton MD [facility] Procedures Code Procedure Name Date Entry Date Standard Description CPT-74161 Visit 12:43:15 CDT CPT-79144 Visit 10:06:02 CDT CPT-13732 Spec Collection and Handling Fee 10:00:31 CDT CPT-12174 Visit 10:00:30 CDT CPT-29984 Drug Screen [place] 14:36:13 CDT
--- OUTSIDE RECORDS SUMMARY | 2018-08-28 06:52 | XMS REPORT | Clinical Summary ---
Author Author Admin, JOHN Organization [facility] Address Unknown Phone Unavailable Allergies, [...] day to help quit smoking VARENICLINE TARTRATE 62728915247 Active Rian Ortega MD Active CHANTIX STARTING MONTH DANILO 0.5 MG X 11 & 1 MG X 42 TABS take as directed 2015 VARENICLINE TARTRATE 24042119092 Active Rian Ortega MD Active CLINDAMYCIN HCL 150 MG CAPS 1 four times a day for 1 week CLINDAMYCIN HCL 24045977852 No Longer Active Karen Jaramillo MD Active TRIAMCINOLONE ACETONIDE 0.1 % CREA Apply to affected areas TID for up to 1 week TRIAMCINOLONE ACETONIDE 28519193635 No Longer Active Rian Ortega MD Active ZITHROMAX 1 GM ORAL PACK Take 1 time and recheck lab in 2-3 weeks AZITHROMYCIN 54654524172 No Longer Active Rian Ortega MD Active PNV PLUS MULTIVITAMIN 27-1 MG ORAL TABS 1 daily VIT-FE FUMARATE-FA 38074234111 Active Aris Charlton MD Active FLAGYL 500 MG TAB four tabs PO x 1 METRONIDAZOLE 97806130682 No Longer Active Aris Charlton MD Active FLAGYL 500 MG TAB four tabs PO x 1 FLAGYL 500 MG TAB 080489 METRONIDAZOLE Inactive ZITHROMAX 1 GM ORAL PACK Take 1 time and recheck lab in 2-3 weeks ZITHROMAX 1 GM ORAL PACK 440142 AZITHROMYCIN Inactive TRIAMCINOLONE ACETONIDE 0.1 % CREA Apply to affected areas TID for up to 1 week TRIAMCINOLONE ACETONIDE 0.1 % CREA 1147841 TRIAMCINOLONE ACETONIDE Inactive CLINDAMYCIN HCL 150 MG CAPS 1 four times a day for 1 week CLINDAMYCIN HCL 150 MG CAPS 020760 CLINDAMYCIN HCL Inactive Immunizations Vaccine Administration Date [...] % 11.0-15.0 platelet count 307 THOUSAND/UL 10*3/mm3 190-512 0673/05/26 mean platelet volume 8.9 fL 7.5-11.5 Blood [...] ... - Chemistry sodium, serum 137 mmol/L 425-574 9966/08/28 potassium, serum 4.3 mmol/L 3.5-5.2 chloride, serum [...] 302 10^3/MM^3 10*3/mm3 142-424 Lab Report: Chlamydia/GC APTIMA/63548 - Lab chlamydia DNA probe NOT DETECTED NOT DETECTED chlamydia DNA probe NOT DETECTED NOT DETECTED chlamydia DNA probe DETECTED NOT DETECTED Lab Report: Chlamydia/GC APTIMA/39803 - Microbiology Neisseria gonorrhoeae DNA probe NOT DETECTED NOT DETECTED Neisseria gonorrhoeae DNA probe NOT DETECTED NOT DETECTED Neisseria gonorrhoeae DNA probe NOT DETECTED NOT DETECTED Lab Report: Chlamydia/GC APTIMA/55054, HEPATITIS B S AG W/, HIV-1/2 Agn/ ... - Chemistry hepatitis B surface antigen NON-REACTIVE NON-REACTIVE Lab Report: Chlamydia/GC APTIMA/01018, HEPATITIS B S AG W/, HIV-1/2 Agn/ ... - Lab chlamydia DNA probe NOT DETECTED NOT DETECTED Lab Report: Chlamydia/GC APTIMA/98103, HEPATITIS B S AG W/, HIV-1/2 Agn/ ... - Microbiology Neisseria gonorrhoeae DNA probe NOT DETECTED NOT DETECTED Lab Report: Chlamydia/GC APTIMA/31524, HEPATITIS B S AG W/, HIV-1/2 Agn/ ... - Serology rapid plasma reagin antibody titer NON-REACTIVE NON-REACTIVE Lab Report: HGBA1C - Chemistry hemoglobin A1C, blood, as % of total hemoglobin 5.3 % 4.3-6.0 Lab Report: Thyroid Stimulating Hormone (L), Quant [facility] - Chemistry TSH 2.31 m[iU]/mL 0.36-3.74 Lab [...] pH, urine, semiquantitative 7.0 5.0-8.5 Lab Report: [facility] [place] Chemistry human chorionic gonadotropin, urine, qualitative [...] N Encounters Code Encounter Date Provider Facility CPT-91827 Level 3 Est. Patient 13:55:16 OPERATIONS EXPERT Rian Ortega MD [facility] CPT-56413 Level 3 Est. Patient 10:42:52 CDT Corrina Bailon APRN [facility] CPT-24893 Level 3 Est. Patient 11:18:30 CDT Aris Charlton MD [facility] Procedures Code Procedure Name Date Entry Date Standard Description CPT-J0702 Celestone 6 mg (Betamethasone) 15:04:45 OPERATIONS EXPERT CPT-83867 Abx/Therapy Injection 15:04:45 OPERATIONS EXPERT CPT-J0702 Celestone 12 mg (Betamethasone) 11:45:31 OPERATIONS EXPERT CPT-16528 Visit 11:39:52 OPERATIONS EXPERT CPT-02852S Sono biophysical pro wo stress test-[facility] 11:21: 42 OPERATIONS EXPERT CPT-06906 Visit 16:00:50 OPERATIONS EXPERT CPT-35427M Sono biophysical pro wo stress test-[facility] 13:12: 18 OPERATIONS EXPERT CPT-93594 Sono biophysical pro wo stress test 11:17:21 OPERATIONS EXPERT 05/21 CPT-71053 Tdap 7yrs or > 15:22:51 OPERATIONS EXPERT CPT-67037 Immunization Single Admin 15:22:51 OPERATIONS EXPERT CPT-37658 Tdap 7yrs or > 15:09:13 OPERATIONS EXPERT CPT-52879 Visit 14:54:16 OPERATIONS EXPERT CPT-85527 Fluzone Quadrivalent Intramuscular Suspension 0.5 ML 16: 58:58 CDT CPT-41830 Administration single or combination vaccine inc oral 16 :58:58 CDT CPT-94285 Fluzone Thim Free 36mo and older 14:47:39 CDT CPT-23412 Visit 14:47:39 CDT CPT-95027 Sono OB limited 10:30:07 CDT CPT-31955 Visit 10:04:44 CDT CPT-18140 Sono OB comp > 14 weeks 12:50:41 CDT CPT-10919 Visit 12:06:25 CDT CPT-07128 Visit 12:43:15 CDT CPT-35438 Visit 10:06:02 CDT CPT-27418 Spec Collection and Handling Fee 10:00:31 CDT CPT-88801 Visit 10:00:30 CDT CPT-93843 Drug Screen [place] 14:36:13 CDT
--- OUTSIDE RECORDS SUMMARY | 2018-08-28 06:53 | XMS REPORT | Clinical Summary ---
Author Author Admin, [facility] Organization [facility] Address Unknown Phone Unavailable Allergies, Adverse [...] of unspecified sites Abscess, skin 682.9 Resolved Rina Ortega MD Cellulitis and abscess of unspecified [...] Active Rian Ortega MD Tobacco use disorder Upper Extremity Surgeon well woman exam V72.31 Active Sasha Espitia [...] a day as needed for congestion GUAIFENESIN 33513760941 No Longer Active Sasha Espitia APRN Active CYCLOBENZAPRINE HCL 10 MG ORAL TABLET 1 three times a day as needed for muscle spasm CYCLOBENZAPRINE HCL 83182809596 No Longer Active Sasha Espitia APRN Active SYMBICORT 160-4.5 MCG/ACT INHALATION AEROSOL 2 puff BID for 10 days BUDESONIDE-FORMOTEROL FUMARATE 97362390827 No Longer Active Rian Ortega MD Active AZITHROMYCIN 250 MG ORAL TABLET 2 po qd x 1 day, then 1 po qd x 4 days 02/15 AZITHROMYCIN 09761457848 No Longer Active Carline Best APRN Active CIPRO 500 MG ORAL TABLET 1 tablet by mouth twice daily CIPROFLOXACIN HCL 80491915741 No Longer Active Tariq Marrero MD Active AZO TABS TABLET 2 tabs qd PHENAZOPYRIDINE HCL TABS 23251872176 No Longer Active Tariq Marrero MD Active CIPROFLOXACIN HCL 250 MG ORAL TABLET 1 twice a day for bladder infection 2016 CIPROFLOXACIN HCL 50469125118 No Longer Active Tariq Marrero MD Active SM VITAMIN B12 TR 1000 MCG ORAL TABLET EXTENDED RELEASE 1 tab po daily 04/24 CYANOCOBALAMIN 01455865750 No Longer Active Nereyda Rodriguez APRN Active CARAFATE 1 GM ORAL TABLET 1 tab po as needed up to 4 times per day SUCRALFATE 17957019976 No Longer Active Nereyda Rodriguez APRN Active PNV PLUS MULTIVITAMIN 27-1 MG ORAL TABLET 1 daily 04/24 VIT-FE FUMARATE-FA 05972489562 No Longer Active Sasha Espitia APRN Active CHANTIX STARTING MONTH DANILO 0.5 MG X 11 & 1 MG X 42 ORAL TABLET take as directed VARENICLINE TARTRATE 77704820047 No Longer Active Sasha Espitia APRN Active CHANTIX 1 MG ORAL TABLET 1 twice a day to help quit smoking 04/24 VARENICLINE TARTRATE 05265276406 No Longer Active Sasha Espitia APRN Active OMEPRAZOLE 20 MG ORAL CAPSULE DELAYED RELEASE 1 tablet by mouth daily OMEPRAZOLE 13592834440 Active Sasha Espitia APRN Active FLINSTONES GUMMIES OMEGA-3 DHA ORAL TABLET CHEWABLE 2 gummies per day PEDIATRIC MULTIPLE VIT-C-FA 33227275726 Active Sasha Espitia APRN Active CLINDAMYCIN HCL 150 MG ORAL CAPSULE 1 four times a day for 1 week CLINDAMYCIN HCL 21482675084 No Longer Active Karen Jaramillo MD Active TRIAMCINOLONE ACETONIDE 0.1 % EXTERNAL CREAM Apply to affected areas TID for up to 1 week TRIAMCINOLONE ACETONIDE 61595068045 No Longer Active Rian Ortega MD Active ZITHROMAX 1 GM ORAL PACKET Take 1 time and recheck lab in 2-3 weeks AZITHROMYCIN 08966185356 No Longer Active Rian Ortega MD Active FLAGYL 500 MG ORAL TABLET four tabs PO x 1 METRONIDAZOLE 48412693088 No Longer Active Aris Charlton MD Active FLAGYL 500 MG ORAL TABLET four tabs PO x 1 FLAGYL 500 MG ORAL TABLET 023162 METRONIDAZOLE Inactive ZITHROMAX 1 GM ORAL PACKET Take 1 time and recheck lab in 2-3 weeks ZITHROMAX 1 GM ORAL PACKET 433646 AZITHROMYCIN Inactive TRIAMCINOLONE ACETONIDE 0.1 % EXTERNAL CREAM Apply to affected areas TID for up to 1 week TRIAMCINOLONE ACETONIDE 0.1 % EXTERNAL CREAM 1243892 TRIAMCINOLONE ACETONIDE Inactive CLINDAMYCIN HCL 150 MG ORAL CAPSULE 1 four times a day for 1 week CLINDAMYCIN HCL 150 MG ORAL CAPSULE 041356 CLINDAMYCIN HCL Inactive CHANTIX 1 MG ORAL [...] per day CARAFATE 1 GM ORAL TABLET 938135 SUCRALFATE Inactive SM VITAMIN B12 TR 1000 MCG ORAL TABLET EXTENDED RELEASE 1 tab po daily 04/24 SM VITAMIN B12 TR 1000 MCG ORAL TABLET EXTENDED RELEASE CYANOCOBALAMIN Inactive CIPROFLOXACIN HCL 250 MG ORAL TABLET 1 twice a day for bladder infection 2016 CIPROFLOXACIN HCL 250 MG ORAL TABLET 183052 CIPROFLOXACIN HCL Inactive AZO TABS TABLET 2 tabs qd AZO TABS TABLET PHENAZOPYRIDINE HCL TABS Inactive SYMBICORT 160-4.5 MCG/ACT INHALATION AEROSOL 2 puff BID for 10 days SYMBICORT 160-4.5 MCG/ACT INHALATION AEROSOL BUDESONIDE- FORMOTEROL FUMARATE Inactive CYCLOBENZAPRINE HCL 10 MG ORAL TABLET 1 three times a day as needed for muscle spasm CYCLOBENZAPRINE HCL 10 MG ORAL TABLET 285095 CYCLOBENZAPRINE HCL Inactive GUAIFENESIN ER 600 MG ORAL TABLET EXTENDED RELEASE 12 HOUR 1 twice a day as needed for congestion GUAIFENESIN ER 600 MG ORAL TABLET EXTENDED RELEASE 12 HOUR GUAIFENESIN Inactive CIPRO 500 MG ORAL TABLET 1 tablet by mouth twice daily CIPRO 500 MG ORAL TABLET 221606 CIPROFLOXACIN HCL Inactive AZITHROMYCIN 250 MG ORAL TABLET 2 po qd x 1 day, then 1 po qd x 4 days 02/15 AZITHROMYCIN 250 MG ORAL TABLET 171739 AZITHROMYCIN Inactive Immunizations Vaccine Administration Date Value [...] ... - Chemistry cholesterol, serum 142 mg/dL 606-488 5041/10/24 triglyceride, serum, fasting 77 mg/dL 30-200 HDL [...] Panel - Chemistry sodium, serum 137 mmol/L 128-213 3166/10/24 carbon dioxide, venous blood 24.4 mmol/L 21.0-32.0 potassium, serum 4.7 mmol/L 3.5-5.2 chloride, serum 104 mmol/L 98-107 blood glucose 85 mg/dL 65-110 urea nitrogen, blood 11 mg/dL 7-18 creatinine, serum 0.82 mg/dL 0.60-1.30 alanine aminotransferase (SGPT), serum 29 U/L 12-78 aspartate aminotransferase (SGOT), serum 16 U/L 15-37 calcium, serum 8.4 mg/dL 8.5-10.1 bilirubin, serum, total 0.60 mg/dL 0.00-1.00 Encounters Code Encounter Date Provider Facility CPT-35373 Level 3 Est. Patient 15:59:13 TELEVISION REPORTER Carline Best [facility] CPT-96208 Employment/ICC Exam 15:03:09 TELEVISION REPORTER Sasha Espitia [facility] CPT-24609 Level 3 Est. Patient 11:54:40 CDT Rian Ortega MD [facility] CPT-92979 Level 3 Est. Patient 11:17:51 CDT Carline Best [facility] CPT-07288 Level 3 Est. Patient 15:43:38 CDT Tariq Marrero MD [facility] CPT-11517 Level 3 Est. Patient 11:16:27 TELEVISION REPORTER Nereyda Rodriguez [facility] CPT-42369 Level 4 Est. Patient 08:56:42 TELEVISION REPORTER Sasha Espitia [facility] CPT-28662 Level 3 Est. Patient 16:40:58 CDT Rian Ortega MD [facility] CPT-78267 Level 3 Est. Patient 13:55:16 TELEVISION REPORTER Rian Ortega MD [facility] CPT-18084 Level 3 Est. Patient 10:42:52 CDT Corrina Bailon [facility] CPT-37008 Level 3 Est. Patient 11:18:30 CDT Aris Charlton MD [facility] Procedures Code Procedure Name Date Entry Date Standard Description CPT-73423 UA w micro - LAB USE ONLY 13:09:18 TELEVISION REPORTER CPT-33010 Urine Culture - LAB USE ONLY 13:09:18 TELEVISION REPORTER CPT-38533 Wet Mount - LAB USE ONLY 11:11:39 TELEVISION REPORTER CPT-03842 Lipid - LAB USE ONLY 15:05:24 TELEVISION REPORTER CPT-63813 PT/INR - LAB USE ONLY 12:14:07 CDT CPT-35482 HGBA1C - LAB USE ONLY 12:14:07 CDT CPT-56919 CMP - LAB USE ONLY 12:14:07 CDT CPT-82609 CBC - LAB USE ONLY 12:14:07 CDT CPT-00945 Venipuncture Draw Fee 12:14:06 CDT CPT-J0702 Celestone 6 mg (Betamethasone) 15:04:45 TELEVISION REPORTER CPT-39243 Abx/Therapy Injection 15:04:45 TELEVISION REPORTER CPT-J0702 Celestone 12 mg (Betamethasone) 11:45:31 TELEVISION REPORTER CPT-85214 Visit 11:39:52 TELEVISION REPORTER CPT-31154V Sono biophysical pro wo stress test-[place] Only 11:21: 42 TELEVISION REPORTER CPT-31215 Visit 16:00:50 TELEVISION REPORTER CPT-77759T Sono biophysical pro wo stress test-[place] Only 13:12: 18 TELEVISION REPORTER CPT-52184 Sono biophysical pro wo stress test 11:17:21 TELEVISION REPORTER 05/21 CPT-32846 Tdap 7yrs or > 15:22:51 TELEVISION REPORTER CPT-68059 Immunization Single Admin 15:22:51 TELEVISION REPORTER CPT-02894 Tdap 7yrs or > 15:09:13 TELEVISION REPORTER CPT-38332 Visit 14:54:16 TELEVISION REPORTER CPT-68879 Fluzone Quadrivalent Intramuscular Suspension 0.5 ML 16: 58:58 CDT CPT-45543 Administration single or combination vaccine inc oral 16 :58:58 CDT CPT-96906 Fluzone Thim Free 36mo and older 14:47:39 CDT CPT-39660 Visit 14:47:39 CDT CPT-37236 Sono OB limited 10:30:07 CDT CPT-06496 Visit 10:04:44 CDT CPT-29661 Sono OB comp > 14 weeks 12:50:41 CDT CPT-90810 Visit 12:06:25 CDT CPT-22118 Visit 12:43:15 CDT CPT-86939 Visit 10:06:02 CDT CPT-08987 Spec Collection and Handling Fee 10:00:31 CDT CPT-50164 Visit 10:00:30 CDT CPT-96821 Drug Screen Grisel 14:36:13 CDT
--- OUTSIDE RECORDS SUMMARY | 2018-08-28 06:54 | XMS REPORT | Clinical Summary ---
Author Author Admin, E Organization [facility] Address Unknown Phone Unavailable Allergies, Adverse Reactions, [...] TAB four tabs PO x 1 METRONIDAZOLE 71430595437 Active Karen Jaramillo MD Active Procedures Code Procedure Name Date Entry Date Standard Description CPT-45617 Spec Collection and Handling Fee 10:00:31 CDT CPT-11799 Visit 10:00:30 CDT CPT-07216 Drug Screen [place] 14:36:13 CDT
--- OUTSIDE RECORDS SUMMARY | 2018-08-28 06:54 | XMS REPORT | Clinical Summary ---
Author Author Admin, E Organization [facility] Address Unknown Phone Unavailable Allergies, Adverse [...] TAB four tabs PO x 1 METRONIDAZOLE 45957647357 Active Karen Jaramillo MD Active Immunizations Vaccine [...] % 11.0-15.0 platelet count 307 THOUSAND/UL 10*3/mm3 526-658 0385/05/26 mean platelet volume 8.9 fL 7.5-11.5 Blood [...] Lab Report: Thyroid Stimulating Hormone (L), Quant [facility] - Chemistry TSH 2.31 m[iU]/mL 0.36-3.74 Lab Report: [facility] - Chemistry human chorionic gonadotropin, urine, qualitative [...] Procedure Name Date Entry Date Standard Description CPT-58845 Spec Collection and Handling Fee 10:00:31 CDT CPT-61055 Visit 10:00:30 CDT CPT-05688 Drug Screen [place] 14:36:13 CDT
--- OUTSIDE RECORDS SUMMARY | 2018-08-28 06:54 | XMS REPORT | Clinical Summary ---
Author Author Admin, E Organization [facility] Address Unknown Phone Unavailable Allergies, Adverse Reactions, [...] 28 weeks gestation of V28.9 Resolved Rian rOtega MD Encounter for unspecified screening of mother [...] Active Rian Ortega MD Tobacco use disorder Oven Heater well woman exam V72.31 Active Sasha Tan [...] examination of defined subpopulations ICD-V70.5 Inactive Karen Jaramlilo MD Supervision high risk , third trimester [...] ORAL TABLET 1 twice a day SULFAMETHOXAZOLE-TRIMETHOPRIM 40932341805 Active Angelica Jarrett LPN Active ZITHROMAX Z-DANILO 250 MG ORAL TABLET 2 today, then 1 daily for 4 days AZITHROMYCIN 73849883988 No Longer Active Mahsa Alvarez Active AZITHROMYCIN 250 MG ORAL TABLET 2 po qd x 1 day, then 1 po qd x 4 days 07/27 AZITHROMYCIN 74380325695 No Longer Active Carline Best APRN Active GUAIFENESIN ER 600 MG ORAL TABLET EXTENDED RELEASE 12 HOUR 1 twice a day as needed for congestion GUAIFENESIN 52267796235 No Longer Active Sasha Tan APRN Active CYCLOBENZAPRINE HCL 10 MG ORAL TABLET 1 three times a day as needed for muscle spasm CYCLOBENZAPRINE HCL 49729954095 No Longer Active Sasha Tan APRN Active SYMBICORT 160-4.5 MCG/ACT INHALATION AEROSOL 2 puff BID for 10 days BUDESONIDE-FORMOTEROL FUMARATE 01538490530 No Longer Active Rian Ortega MD Active AZITHROMYCIN 250 MG ORAL TABLET 2 po qd x 1 day, then 1 po qd x 4 days 02/15 AZITHROMYCIN 43019283547 No Longer Active Carline Best APRN Active CIPRO 500 MG ORAL TABLET 1 tablet by mouth twice daily CIPROFLOXACIN HCL 42743342769 No Longer Active Tariq Marrero MD Active AZO TABS TABLET 2 tabs qd PHENAZOPYRIDINE HCL TABS 44326303718 No Longer Active Tariq Marrero MD Active CIPROFLOXACIN HCL 250 MG ORAL TABLET 1 twice a day for bladder infection 2016 CIPROFLOXACIN HCL 14815448214 No Longer Active Tariq Marrero MD Active SM VITAMIN B12 TR 1000 MCG ORAL TABLET EXTENDED RELEASE 1 tab po daily 04/24 CYANOCOBALAMIN 57455978388 No Longer Active Nereyda Rodriguez APRN Active CARAFATE 1 GM ORAL TABLET 1 tab po as needed up to 4 times per day SUCRALFATE 71768581971 No Longer Active Nereyda Rodriguez APRN Active PNV PLUS MULTIVITAMIN 27-1 MG ORAL TABLET 1 daily 04/24 VIT-FE FUMARATE-FA 33299946303 No Longer Active Sasha Tan APRN Active CHANTIX STARTING MONTH DANILO 0.5 MG X 11 & 1 MG X 42 ORAL TABLET take as directed VARENICLINE TARTRATE 91541228228 No Longer Active Sasha Tan APRN Active CHANTIX 1 MG ORAL TABLET 1 twice a day to help quit smoking 04/24 VARENICLINE TARTRATE 67818537501 No Longer Active Sasha Tan APRN Active OMEPRAZOLE 20 MG ORAL CAPSULE DELAYED RELEASE 1 tablet by mouth daily OMEPRAZOLE 47858379503 Active Sasha Tan APRN Active FLINSTONES GUMMIES OMEGA-3 DHA ORAL TABLET CHEWABLE 2 gummies per day PEDIATRIC MULTIPLE VIT-C-FA 95849147026 Active Sasha Tan APRN Active CLINDAMYCIN HCL 150 MG ORAL CAPSULE 1 four times a day for 1 week CLINDAMYCIN HCL 52260769234 No Longer Active Karen Jaramillo MD Active TRIAMCINOLONE ACETONIDE 0.1 % EXTERNAL CREAM Apply to affected areas TID for up to 1 week TRIAMCINOLONE ACETONIDE 80535579639 No Longer Active Rian Ortega MD Active ZITHROMAX 1 GM ORAL PACKET Take 1 time and recheck lab in 2-3 weeks AZITHROMYCIN 55803334416 No Longer Active Rian Ortega MD Active FLAGYL 500 MG ORAL TABLET four tabs PO x 1 METRONIDAZOLE 44688944070 No Longer Active Aris Charlton MD Active FLAGYL 500 MG ORAL TABLET four tabs PO x 1 FLAGYL 500 MG ORAL TABLET 078325 METRONIDAZOLE Inactive ZITHROMAX 1 GM ORAL PACKET Take 1 time and recheck lab in 2-3 weeks ZITHROMAX 1 GM ORAL PACKET 649792 AZITHROMYCIN Inactive TRIAMCINOLONE ACETONIDE 0.1 % EXTERNAL CREAM Apply to affected areas TID for up to 1 week TRIAMCINOLONE ACETONIDE 0.1 % EXTERNAL CREAM 8217277 TRIAMCINOLONE ACETONIDE Inactive CLINDAMYCIN HCL 150 MG ORAL CAPSULE 1 four times a day for 1 week CLINDAMYCIN HCL 150 MG ORAL CAPSULE 023905 CLINDAMYCIN HCL Inactive CHANTIX 1 MG ORAL [...] per day CARAFATE 1 GM ORAL TABLET 529698 SUCRALFATE Inactive SM VITAMIN B12 TR 1000 MCG ORAL TABLET EXTENDED RELEASE 1 tab po daily 04/24 SM VITAMIN B12 TR 1000 MCG ORAL TABLET EXTENDED RELEASE CYANOCOBALAMIN Inactive CIPROFLOXACIN HCL 250 MG ORAL TABLET 1 twice a day for bladder infection 2016 CIPROFLOXACIN HCL 250 MG ORAL TABLET 651277 CIPROFLOXACIN HCL Inactive AZO TABS TABLET 2 tabs qd AZO TABS TABLET PHENAZOPYRIDINE HCL TABS Inactive SYMBICORT 160-4.5 MCG/ACT INHALATION AEROSOL 2 puff BID for 10 days SYMBICORT 160-4.5 MCG/ACT INHALATION AEROSOL BUDESONIDE- FORMOTEROL FUMARATE Inactive CYCLOBENZAPRINE HCL 10 MG ORAL TABLET 1 three times a day as needed for muscle spasm CYCLOBENZAPRINE HCL 10 MG ORAL TABLET 061596 CYCLOBENZAPRINE HCL Inactive GUAIFENESIN ER 600 MG ORAL TABLET EXTENDED RELEASE 12 HOUR 1 twice a day as needed for congestion GUAIFENESIN ER 600 MG ORAL TABLET EXTENDED RELEASE 12 HOUR GUAIFENESIN Inactive CIPRO 500 MG ORAL TABLET 1 tablet by mouth twice daily CIPRO 500 MG ORAL TABLET 539770 CIPROFLOXACIN HCL Inactive AZITHROMYCIN 250 MG ORAL TABLET 2 po qd x 1 day, then 1 po qd x 4 days 02/15 AZITHROMYCIN 250 MG ORAL TABLET 702534 AZITHROMYCIN Inactive AZITHROMYCIN 250 MG ORAL TABLET 2 po qd x 1 day, then 1 po qd x 4 days 07/27 AZITHROMYCIN 250 MG ORAL TABLET 647153 AZITHROMYCIN Inactive ZITHROMAX Z-DANILO 250 MG ORAL TABLET 2 today, then 1 daily for 4 days ZITHROMAX Z-DANILO 250 MG ORAL TABLET 710920 AZITHROMYCIN Inactive Immunizations Vaccine Administration Date Value [...] - Hematology leukocyte count, blood sent to [facility] 10^3/mm^3 10*3/mm3 4.6-10.2 Lab Report: CBC, Lipid Panel, Thyroid Stimulating Hormone (L), Free Thyr ... - Chemistry cholesterol, serum 142 mg/dL 285-990 1051/10/24 triglyceride, serum, fasting 77 mg/dL 30-200 HDL [...] Panel - Chemistry sodium, serum 137 mmol/L 608-386 4817/10/24 carbon dioxide, venous blood 24.4 mmol/L 21.0-32.0 [...] 1+ Encounters Code Encounter Date Provider Facility CPT-59517 Level 3 Est. Patient 14:41:20 CDT Tariq Marrero MD [facility] CPT-20112 Level 3 Est. Patient 11:06:09 AIR CREW MEMBER Carline Best [facility] CPT-29418 Level 3 Est. Patient 15:59:13 AIR CREW MEMBER Carline Best [facility] CPT-95189 Employment/ICC Exam 15:03:09 AIR CREW MEMBER Sasha Tan [facility] CPT-15121 Level 3 Est. Patient 11:54:40 CDT Rian Ortega MD [facility] CPT-92207 Level 3 Est. Patient 11:17:51 CDT Carline Best [facility] CPT-80752 Level 3 Est. Patient 15:43:38 CDT Tariq Marrero MD [facility] CPT-13394 Level 3 Est. Patient 11:16:27 AIR CREW MEMBER Nereyda Rodriguez [facility] CPT-97752 Level 4 Est. Patient 08:56:42 AIR [employer] MEMBER Sasha Tan [facility] CPT-02454 Level 3 Est. Patient 16:40:58 CDT Rian Ortega MD [facility] CPT-64357 Level 3 Est. Patient 13:55:16 AIR CREW MEMBER Rian Ortega MD [facility] CPT-75339 Level 3 Est. Patient 10:42:52 CDT Corrina Bailon [facility][note 2] CPT-51015 Level 3 Est. Patient 11:18:30 CDT Aris Charlton MD [facility] Procedures Code Procedure Name Date Entry Date Standard Description CPT-92661 UA w micro - LAB USE ONLY 13:09:18 AIR CREW MEMBER CPT-79711 Urine Culture - LAB USE ONLY 13:09:18 AIR [employer] MEMBER CPT-12997 Wet Mount - LAB USE ONLY 11:11:39 [employer] CPT-82078 Lipid - LAB USE ONLY 15:05:24 AIR [employer] MEMBER CPT-41688 PT/INR - LAB USE ONLY 12:14:07 CDT CPT-62941 HGBA1C - LAB USE ONLY 12:14:07 CDT CPT-10549 CMP - LAB USE ONLY 12:14:07 CDT CPT-98518 CBC - LAB USE ONLY 12:14:07 CDT CPT-65838 Venipuncture Draw Fee 12:14:06 CDT CPT-J0702 Celestone 6 mg (Betamethasone) 15:04:45 AIR CREW MEMBER CPT-94624 Abx/Therapy Injection 15:04:45 AIR CREW MEMBER CPT-J0702 Celestone 12 mg (Betamethasone) 11:45:31 AIR [employer] MEMBER CPT-79931 Visit 11:39:52 AIR [employer] MEMBER CPT-78248P Sono biophysical pro wo stress test-[place] Only 11:21: 42 [employer] MEMBER CPT-31158 Visit 16:00:50 AIR CREW MEMBER CPT-98028X Sono biophysical pro wo stress test-[place] Only 13:12: 18 [employer] MEMBER CPT-64269 [employer]o biophysical pro wo stress test 11:17:21 AIR CREW MEMBER 05/21 CPT-97586 Tdap 7yrs or > 15:22:51 [employer] MEMBER CPT-65855 Immunization Single Admin 15:22:51 AIR [employer]W MEMBER CPT-33316 Tdap 7yrs or > 15:09:13 [employer] MEMBER CPT-05732 Visit 14:54:16 [employer] MEMBER CPT-20994 Fluzone Quadrivalent Intramuscular Suspension 0.5 ML 16: 58:58 CDT CPT-47346 Administration single or combination vaccine inc oral 16 :58:58 CDT CPT-51924 Fluzone Thim Free 36mo and older 14:47:39 CDT CPT-43405 Visit 14:47:39 CDT CPT-37729 Sono OB limited 10:30:07 CDT CPT-31657 Visit 10:04:44 CDT CPT-56368 Sono OB comp > 14 weeks 12:50:41 CDT CPT-55124 Visit 12:06:25 CDT CPT-10775 Visit 12:43:15 CDT CPT-42946 Visit 10:06:02 CDT CPT-85436 Spec Collection and Handling Fee 10:00:31 CDT CPT-14296 Visit 10:00:30 CDT CPT-52526 Drug Screen [place]isel 14:36:13 CDT
--- OUTSIDE RECORDS SUMMARY | 2018-08-28 06:55 | XMS REPORT | Clinical Summary ---
Author Author Admin, [facility] Organization [facility] Address Unknown Phone Unavailable Allergies, Adverse Reactions, [...] Active Rian Ortgea MD Tobacco use disorder Health examination of [...] day to help quit smoking VARENICLINE TARTRATE 22511237539 Active Rian Ortega MD Active CHANTIX STARTING MONTH DANILO 0.5 MG X 11 & 1 MG X 42 TABS take as directed 2015 VARENICLINE TARTRATE 65378791463 Active Rian Ortega MD Active CLINDAMYCIN HCL 150 MG CAPS 1 four times a day for 1 week CLINDAMYCIN HCL 55912749060 No Longer Active Karen Jaramillo MD Active TRIAMCINOLONE ACETONIDE 0.1 % CREA Apply to affected areas TID for up to 1 week TRIAMCINOLONE ACETONIDE 42859941205 No Longer Active Rian Ortega MD Active ZITHROMAX 1 GM ORAL PACK Take 1 time and recheck lab in 2-3 weeks AZITHROMYCIN 38637942543 No Longer Active Rian Ortega MD Active PNV PLUS MULTIVITAMIN 27-1 MG ORAL TABS 1 daily VIT-FE FUMARATE-FA 76153513648 Active Aris Charlton MD Active FLAGYL 500 MG TAB four tabs PO x 1 METRONIDAZOLE 14455846608 No Longer Active Aris Charlton MD Active FLAGYL 500 MG TAB four tabs PO x 1 FLAGYL 500 MG TAB 720651 METRONIDAZOLE Inactive ZITHROMAX 1 GM ORAL PACK Take 1 time and recheck lab in 2-3 weeks ZITHROMAX 1 GM ORAL PACK 265324 AZITHROMYCIN Inactive TRIAMCINOLONE ACETONIDE 0.1 % CREA Apply to affected areas TID for up to 1 week TRIAMCINOLONE ACETONIDE 0.1 % CREA 4026599 TRIAMCINOLONE ACETONIDE Inactive CLINDAMYCIN HCL 150 MG CAPS 1 four times a day for 1 week CLINDAMYCIN HCL 150 MG CAPS 656454 CLINDAMYCIN HCL Inactive Immunizations Vaccine Administration Date [...] % 11.0-15.0 platelet count 307 THOUSAND/UL 10*3/mm3 279-110 4279/05/26 mean platelet volume 8.9 fL 7.5-11.5 Blood [...] ... - Chemistry sodium, serum 137 mmol/L 708-117 9940/08/28 potassium, serum 4.3 mmol/L 3.5-5.2 chloride, serum [...] 302 10^3/MM^3 10*3/mm3 142-424 Lab Report: Chlamydia/GC APTIMA/81732 - Lab chlamydia DNA probe NOT DETECTED NOT DETECTED chlamydia DNA probe NOT DETECTED NOT DETECTED chlamydia DNA probe DETECTED NOT DETECTED Lab Report: Chlamydia/GC APTIMA/01203 - Microbiology Neisseria gonorrhoeae DNA probe NOT DETECTED NOT DETECTED Neisseria gonorrhoeae DNA probe NOT DETECTED NOT DETECTED Neisseria gonorrhoeae DNA probe NOT DETECTED NOT DETECTED Lab Report: Chlamydia/GC APTIMA/66312, HEPATITIS B S AG W/, HIV-1/2 Agn/ ... - Chemistry hepatitis B surface antigen NON-REACTIVE NON-REACTIVE Lab Report: Chlamydia/GC APTIMA/40893, HEPATITIS B S AG W/, HIV-1/2 Agn/ ... - Lab chlamydia DNA probe NOT DETECTED NOT DETECTED Lab Report: Chlamydia/GC APTIMA/23631, HEPATITIS B S AG W/, HIV-1/2 Agn/ ... - Microbiology Neisseria gonorrhoeae DNA probe NOT DETECTED NOT DETECTED Lab Report: Chlamydia/GC APTIMA/86340, HEPATITIS B S AG W/, HIV-1/2 Agn/ ... - Serology rapid plasma reagin antibody titer NON-REACTIVE NON-REACTIVE Lab Report: HGBA1C - Chemistry hemoglobin A1C, blood, as % of total hemoglobin 5.3 % 4.3-6.0 Lab Report: Thyroid Stimulating Hormone (L), Quant [facility] - Chemistry TSH 2.31 m[iU]/mL [...] N Encounters Code Encounter Date Provider Facility CPT-84697 Level 3 Est. Patient 13:55:16 METAL FORGER'S ASSISTANT Rian Ortega MD [facility] CPT-10771 Level 3 Est. Patient 10:42:52 CDT Corrina Bailon APRN [facility] CPT-83833 Level 3 Est. Patient 11:18:30 CDT Aris Charlton MD [facility] Procedures Code Procedure Name Date Entry Date Standard Description CPT-J0702 Celestone 6 mg (Betamethasone) 15:04:45 METAL FORGER'S ASSISTANT CPT-20807 Abx/Therapy Injection 15:04:45 METAL FORGER'S ASSISTANT CPT-J0702 Celestone 12 mg (Betamethasone) 11:45:31 METAL FORGER'S ASSISTANT CPT-59608 Visit 11:39:52 METAL FORGER'S ASSISTANT CPT-83369L Sono biophysical pro wo stress test-[facility] 11:21: 42 METAL FORGER'S ASSISTANT CPT-27572 Visit 16:00:50 METAL FORGER'S ASSISTANT CPT-97794X Sono biophysical pro wo stress test-[facility] 13:12: 18 METAL FORGER'S ASSISTANT CPT-63266 Sono biophysical pro wo stress test 11:17:21 METAL FORGER'S ASSISTANT 05/21 CPT-47210 Tdap 7yrs or > 15:22:51 METAL FORGER'S ASSISTANT CPT-25206 Immunization Single Admin 15:22:51 METAL FORGER'S ASSISTANT CPT-53726 Tdap 7yrs or > 15:09:13 METAL FORGER'S ASSISTANT CPT-72590 Visit 14:54:16 METAL FORGER'S ASSISTANT CPT-74344 Fluzone Quadrivalent Intramuscular Suspension 0.5 ML 16: 58:58 CDT CPT-16251 Administration single or combination vaccine inc oral 16 :58:58 CDT CPT-53676 Fluzone Thim Free 36mo and older 14:47:39 CDT CPT-53677 Visit 14:47:39 CDT CPT-69322 Sono OB limited 10:30:07 CDT CPT-64395 Visit 10:04:44 CDT CPT-80970 Sono OB comp > 14 weeks 12:50:41 CDT CPT-13581 Visit 12:06:25 CDT CPT-98441 Visit 12:43:15 CDT CPT-10024 Visit 10:06:02 CDT CPT-63963 Spec Collection and Handling Fee 10:00:31 CDT CPT-25214 Visit 10:00:30 CDT CPT-19499 Drug Screen [place] 14:36:13 CDT
--- OUTSIDE RECORDS SUMMARY | 2018-08-28 06:56 | XMS REPORT | Clinical Summary ---
Author Author Admin, [facility] Organization [facility] Address Unknown Phone Unavailable Allergies, Adverse Reactions, [...] Active Rian Ortega MD Tobacco use disorder Shank Piece Tacker well woman exam V72.31 Active Sasha Espitia [...] po qd x 4 days 07/27 AZITHROMYCIN 75839633133 No Longer Active Carline Best APRN Active GUAIFENESIN ER 600 MG ORAL TABLET EXTENDED RELEASE 12 HOUR 1 twice a day as needed for congestion GUAIFENESIN 61949723828 No Longer Active Sasha Espitia APRN Active CYCLOBENZAPRINE HCL 10 MG ORAL TABLET 1 three times a day as needed for muscle spasm CYCLOBENZAPRINE HCL 91113530863 No Longer Active Sasha Espitia APRN Active SYMBICORT 160-4.5 MCG/ACT INHALATION AEROSOL 2 puff BID for 10 days BUDESONIDE-FORMOTEROL FUMARATE 73270263826 No Longer Active Rian Ortega MD Active AZITHROMYCIN 250 MG ORAL TABLET 2 po qd x 1 day, then 1 po qd x 4 days 02/15 AZITHROMYCIN 16677838059 No Longer Active Carline Best APRN Active CIPRO 500 MG ORAL TABLET 1 tablet by mouth twice daily CIPROFLOXACIN HCL 55740245019 No Longer Active Tariq Marrero MD Active AZO TABS TABLET 2 tabs qd PHENAZOPYRIDINE HCL TABS 02500428941 No Longer Active Tariq Marrero MD Active CIPROFLOXACIN HCL 250 MG ORAL TABLET 1 twice a day for bladder infection 2016 CIPROFLOXACIN HCL 07822713580 No Longer Active Tariq Marrero MD Active SM VITAMIN B12 TR 1000 MCG ORAL TABLET EXTENDED RELEASE 1 tab po daily 04/24 CYANOCOBALAMIN 70209432711 No Longer Active Nereyda Rodriguez APRN Active CARAFATE 1 GM ORAL TABLET 1 tab po as needed up to 4 times per day SUCRALFATE 29706109519 No Longer Active Nereyda Rodriguez APRN Active PNV PLUS MULTIVITAMIN 27-1 MG ORAL TABLET 1 daily 04/24 VIT-FE FUMARATE-FA 10636352352 No Longer Active Sasha Espitia APRN Active CHANTIX STARTING MONTH DANILO 0.5 MG X 11 & 1 MG X 42 ORAL TABLET take as directed VARENICLINE TARTRATE 78545445978 No Longer Active Sasha Espitia APRN Active CHANTIX 1 MG ORAL TABLET 1 twice a day to help quit smoking 04/24 VARENICLINE TARTRATE 70630909482 No Longer Active Sasha Espitia APRN Active OMEPRAZOLE 20 MG ORAL CAPSULE DELAYED RELEASE 1 tablet by mouth daily OMEPRAZOLE 26004251913 Active Sasha Espitia APRN Active FLINSTONES GUMMIES OMEGA-3 DHA ORAL TABLET CHEWABLE 2 gummies per day PEDIATRIC MULTIPLE VIT-C-FA 47441785335 Active Sasha Espitia APRN Active CLINDAMYCIN HCL 150 MG ORAL CAPSULE 1 four times a day for 1 week CLINDAMYCIN HCL 92752027655 No Longer Active Karen Jaramillo MD Active TRIAMCINOLONE ACETONIDE 0.1 % EXTERNAL CREAM Apply to affected areas TID for up to 1 week TRIAMCINOLONE ACETONIDE 59698452448 No Longer Active Rian Ortega MD Active ZITHROMAX 1 GM ORAL PACKET Take 1 time and recheck lab in 2-3 weeks AZITHROMYCIN 26175595083 No Longer Active Rian Ortega MD Active FLAGYL 500 MG ORAL TABLET four tabs PO x 1 METRONIDAZOLE 89844388158 No Longer Active Aris Charlton MD Active FLAGYL 500 MG ORAL TABLET four tabs PO x 1 FLAGYL 500 MG ORAL TABLET 513421 METRONIDAZOLE Inactive ZITHROMAX 1 GM ORAL PACKET Take 1 time and recheck lab in 2-3 weeks ZITHROMAX 1 GM ORAL PACKET 892108 AZITHROMYCIN Inactive TRIAMCINOLONE ACETONIDE 0.1 % EXTERNAL CREAM Apply to affected areas TID for up to 1 week TRIAMCINOLONE ACETONIDE 0.1 % EXTERNAL CREAM 9379185 TRIAMCINOLONE ACETONIDE Inactive CLINDAMYCIN HCL 150 MG ORAL CAPSULE 1 four times a day for 1 week CLINDAMYCIN HCL 150 MG ORAL CAPSULE 164407 CLINDAMYCIN HCL Inactive CHANTIX 1 MG ORAL [...] per day CARAFATE 1 GM ORAL TABLET 533661 SUCRALFATE Inactive SM VITAMIN B12 TR 1000 MCG ORAL TABLET EXTENDED RELEASE 1 tab po daily 04/24 SM VITAMIN B12 TR 1000 MCG ORAL TABLET EXTENDED RELEASE CYANOCOBALAMIN Inactive CIPROFLOXACIN HCL 250 MG ORAL TABLET 1 twice a day for bladder infection 2016 CIPROFLOXACIN HCL 250 MG ORAL TABLET 902436 CIPROFLOXACIN HCL Inactive AZO TABS TABLET 2 tabs qd AZO TABS TABLET PHENAZOPYRIDINE HCL TABS Inactive SYMBICORT 160-4.5 MCG/ACT INHALATION AEROSOL 2 puff BID for 10 days SYMBICORT 160-4.5 MCG/ACT INHALATION AEROSOL BUDESONIDE- FORMOTEROL FUMARATE Inactive CYCLOBENZAPRINE HCL 10 MG ORAL TABLET 1 three times a day as needed for muscle spasm CYCLOBENZAPRINE HCL 10 MG ORAL TABLET 939734 CYCLOBENZAPRINE HCL Inactive GUAIFENESIN ER 600 MG ORAL TABLET EXTENDED RELEASE 12 HOUR 1 twice a day as needed for congestion GUAIFENESIN ER 600 MG ORAL TABLET EXTENDED RELEASE 12 HOUR GUAIFENESIN Inactive CIPRO 500 MG ORAL TABLET 1 tablet by mouth twice daily CIPRO 500 MG ORAL TABLET 253996 CIPROFLOXACIN HCL Inactive AZITHROMYCIN 250 MG ORAL TABLET 2 po qd x 1 day, then 1 po qd x 4 days 02/15 AZITHROMYCIN 250 MG ORAL TABLET 889522 AZITHROMYCIN Inactive AZITHROMYCIN 250 MG ORAL TABLET 2 po qd x 1 day, then 1 po qd x 4 days 07/27 AZITHROMYCIN 250 MG ORAL TABLET 525143 AZITHROMYCIN Inactive Immunizations Vaccine Administration Date Value [...] ... - Chemistry cholesterol, serum 142 mg/dL 916-756 2061/10/24 triglyceride, serum, fasting 77 mg/dL 30-200 HDL [...] Panel - Chemistry sodium, serum 137 mmol/L 643-087 4609/10/24 carbon dioxide, venous blood 24.4 mmol/L 21.0-32.0 [...] Negative;Positive Encounters Code Encounter Date Provider Facility CPT-95807 Level 3 Est. Patient 11:06:09 SNOWBOARD DESIGNER Carline Best [facility] CPT-26025 Level 3 Est. Patient 15:59:13 SNOWBOARD DESIGNER Carline Best [facility] CPT-90976 Employment/ICC Exam 15:03:09 SNOWBOARD DESIGNER Sasha Espitia [facility] CPT-75316 Level 3 Est. Patient 11:54:40 CDT Rian Ortega MD [facility] CPT-90395 Level 3 Est. Patient 11:17:51 CDT Carline Best [facility] CPT-67635 Level 3 Est. Patient 15:43:38 CDT Tariq Marrero MD [facility] CPT-97838 Level 3 Est. Patient 11:16:27 SNOWBOARD DESIGNER Nereyda Rodriguez [facility] CPT-37080 Level 4 Est. Patient 08:56:42 SNOWBOARD DESIGNER Sasha Espitia [facility] CPT-84095 Level 3 Est. Patient 16:40:58 CDT Rian Ortega MD [facility] CPT-17842 Level 3 Est. Patient 13:55:16 SNOWBOARD DESIGNER Rian Ortega MD [facility] CPT-72994 Level 3 Est. Patient 10:42:52 CDT Corrina Bailon [facility] CPT-49331 Level 3 Est. Patient 11:18:30 CDT Aris Charlton MD [facility] Procedures Code Procedure Name Date Entry Date Standard Description CPT-22332 UA w micro - LAB USE ONLY 13:09:18 SNOWBOARD DESIGNER CPT-91452 Urine Culture - LAB USE ONLY 13:09:18 SNOWBOARD DESIGNER CPT-70372 Wet Mount - LAB USE ONLY 11:11:39 SNOWBOARD DESIGNER CPT-30858 Lipid - LAB USE ONLY 15:05:24 SNOWBOARD DESIGNER CPT-62410 PT/INR - LAB USE ONLY 12:14:07 CDT CPT-15022 HGBA1C - LAB USE ONLY 12:14:07 CDT CPT-95039 CMP - LAB USE ONLY 12:14:07 CDT CPT-32773 CBC - LAB USE ONLY 12:14:07 CDT CPT-51886 Venipuncture Draw Fee 12:14:06 CDT CPT-J0702 Celestone 6 mg (Betamethasone) 15:04:45 SNOWBOARD DESIGNER CPT-16834 Abx/Therapy Injection 15:04:45 SNOWBOARD DESIGNER CPT-J0702 Celestone 12 mg (Betamethasone) 11:45:31 SNOWBOARD DESIGNER CPT-54109 Visit 11:39:52 SNOWBOARD DESIGNER CPT-49352T Sono biophysical pro wo stress test-[place] Only 11:21: 42 SNOWBOARD DESIGNER CPT-22971 Visit 16:00:50 SNOWBOARD DESIGNER CPT-16554H Sono biophysical pro wo stress test-[place] Only 13:12: 18 SNOWBOARD DESIGNER CPT-11253 Sono biophysical pro wo stress test 11:17:21 SNOWBOARD DESIGNER 05/21 CPT-51303 Tdap 7yrs or > 15:22:51 SNOWBOARD DESIGNER CPT-52678 Immunization Single Admin 15:22:51 SNOWBOARD DESIGNER CPT-63374 Tdap 7yrs or > 15:09:13 SNOWBOARD DESIGNER CPT-27590 Visit 14:54:16 SNOWBOARD DESIGNER CPT-45101 Fluzone Quadrivalent Intramuscular Suspension 0.5 ML 16: 58:58 CDT CPT-21003 Administration single or combination vaccine inc oral 16 :58:58 CDT CPT-22416 Fluzone Thim Free 36mo and older 14:47:39 CDT CPT-85830 Visit 14:47:39 CDT CPT-80811 Sono OB limited 10:30:07 CDT CPT-52753 Visit 10:04:44 CDT CPT-70831 Sono OB comp > 14 weeks 12:50:41 CDT CPT-26282 Visit 12:06:25 CDT CPT-20896 Visit 12:43:15 CDT CPT-24630 Visit 10:06:02 CDT CPT-24762 Spec Collection and Handling Fee 10:00:31 CDT CPT-48495 Visit 10:00:30 CDT CPT-47842 Drug Screen [place]isel 14:36:13 CDT
--- OUTSIDE RECORDS SUMMARY | 2018-08-28 06:56 | XMS REPORT | Clinical Summary ---
[...] and recheck lab in 2-3 weeks AZITHROMYCIN 23318780966 Active Carolina Mayfield LPN Active TRIAMCINOLONE ACETONIDE 0.1 % CREA Apply to affected areas TID for up to 1 week TRIAMCINOLONE ACETONIDE 42642594332 Active Aris Charlton MD Active PNV PLUS MULTIVITAMIN 27-1 MG ORAL TABS 1 daily VIT-FE FUMARATE-FA 71078466589 Active Aris Charlton MD Active FLAGYL 500 MG TAB four tabs PO x 1 METRONIDAZOLE 53651807831 No Longer Active Aris Charlton MD Active FLAGYL 500 MG TAB four tabs PO x 1 FLAGYL 500 MG TAB 492301 METRONIDAZOLE Inactive Immunizations Vaccine Administration Date Value [...] % 11.0-15.0 platelet count 307 THOUSAND/UL 10*3/mm3 011-376 7299/05/26 mean platelet volume 8.9 fL 7.5-11.5 Blood [...] antibody, serum, IgG 2.66 Lab Report: Chlamydia/GC APTIMA/[id number] - Lab chlamydia DNA probe DETECTED NOT DETECTED Lab Report: Chlamydia/GC APTIMA/44291 - Microbiology Neisseria gonorrhoeae DNA probe NOT [...] 7.0 5.0-8.5 Lab Report: [facility] [place] Chemistry human chorionic [...] N Encounters Code Encounter Date Provider Facility CPT-24200 Level 3 Est. Patient 10:42:52 CDT Corrina Bailon APRN [facility] CPT-90674 Level 3 Est. Patient 11:18:30 CDT Aris Charlton MD [facility] Procedures Code Procedure Name Date Entry Date Standard Description CPT-62880 Visit 10:06:02 CDT CPT-72432 Spec Collection and Handling Fee 10:00:31 CDT CPT-10473 Visit 10:00:30 CDT CPT-16915 Drug Screen [place] 14:36:13 CDT
--- OUTSIDE RECORDS SUMMARY | 2018-08-28 06:57 | XMS REPORT | Clinical Summary ---
Author Author Admin, E Organization [facility] Address Unknown Phone Unavailable Allergies, Adverse Reactions, [...] Active Rian Ortega MD Tobacco use disorder Obstetrics Gyn well woman exam V72.31 Active Sasha Espitia APRN Routine gynecological examination Bariatric operative procedure V45.86 Active Mariely Farolanda RMRy Bariatric surgery status Physical examination V70.0 Active Sasha Espitia APRN Routine general medical examination at a health care facility Dysuria 788.1 Active Nereyda Rodriguez SOIL FERTILITY SPECIALIST Dysuria Urinary tract infection 599.0 Active Nereyda Rodriguez APRN Urinary tract infection, site not specified Bronchitis 490 Active Carline Best SOIL FERTILITY SPECIALIST Bronchitis, not specified as acute or chronic [...] Status Provider Patient Instruction GUAIFENESIN 600 MG [id number] 1 twice a day as needed for congestion GUAIFENESIN 40860090878 Active Carline Best APRN Active SYMBICORT 160-4.5 MCG/ACT AERO 2 puff BID for 10 days BUDESONIDE-FORMOTEROL FUMARATE 59933104359 Active Carline Best APRN Active AZITHROMYCIN 250 MG TABS 2 po qd x 1 day, then 1 po qd x 4 days AZITHROMYCIN 82433922089 No Longer Active Carline Best APRN Active CIPRO 500 MG TAB 1 tablet by mouth twice daily CIPROFLOXACIN HCL 91206110210 No Longer Active Tariq Marrero MD Active AZO TABS TABS 2 tabs qd PHENAZOPYRIDINE HCL TABS 41668236740 No Longer Active Tariq Marrero MD Active CIPROFLOXACIN HCL 250 MG ORAL TABS 1 twice a day for bladder infection 07/24 CIPROFLOXACIN HCL 38248991534 No Longer Active Tariq Marrero MD Active SM VITAMIN B12 TR 1000 MCG ORAL CR-TABS 1 tab po daily CYANOCOBALAMIN 73379644191 No Longer Active Nereyda Rodriguez APRN Active CARAFATE 1 GM TAB 1 tab po as needed up to 4 times per day SUCRALFATE 86983430095 No Longer Active Nereyda Rodriguez APRN Active PNV PLUS MULTIVITAMIN 27-1 MG ORAL TABS 1 daily VIT-FE FUMARATE-FA 01458541545 No Longer Active Sasha Espitia APRN Active CHANTIX STARTING MONTH DANILO 0.5 MG X 11 & 1 MG X 42 TABS take as directed 2015 VARENICLINE TARTRATE 41501247506 No Longer Active Sasha Espitia APRN Active CHANTIX 1 MG TABS 1 twice a day to help quit smoking VARENICLINE TARTRATE 14786764809 No Longer Active Sasha Espitia APRN Active OMEPRAZOLE 20 MG CPDR 1 tablet by mouth daily OMEPRAZOLE 52071817953 Active Sasha Espitia APRN Active FLINSTONES GUMMIES OMEGA-3 DHA ORAL CHEW 2 gummies per day PEDIATRIC MULTIPLE VIT-C-FA 72856519235 Active Sasha Espitia APRN Active CLINDAMYCIN HCL 150 MG CAPS 1 four times a day for 1 week CLINDAMYCIN HCL 67513116576 No Longer Active Karen Jaramillo MD Active TRIAMCINOLONE ACETONIDE 0.1 % CREA Apply to affected areas TID for up to 1 week TRIAMCINOLONE ACETONIDE 99915815078 No Longer Active Rian Ortega MD Active ZITHROMAX 1 GM ORAL PACK Take 1 time and recheck lab in 2-3 weeks AZITHROMYCIN 15253734932 No Longer Active Rian Ortega MD Active FLAGYL 500 MG TAB four tabs PO x 1 METRONIDAZOLE 20810637748 No Longer Active Aris Charlton MD Active FLAGYL 500 MG TAB four tabs PO x 1 FLAGYL 500 MG TAB 770236 METRONIDAZOLE Inactive ZITHROMAX 1 GM ORAL PACK Take 1 time and recheck lab in 2-3 weeks ZITHROMAX 1 GM ORAL PACK 583455 AZITHROMYCIN Inactive TRIAMCINOLONE ACETONIDE 0.1 % CREA Apply to affected areas TID for up to 1 week TRIAMCINOLONE ACETONIDE 0.1 % CREA 4854098 TRIAMCINOLONE ACETONIDE Inactive CLINDAMYCIN HCL 150 MG CAPS 1 four times a day for 1 week CLINDAMYCIN HCL 150 MG CAPS 902794 CLINDAMYCIN HCL Inactive CHANTIX 1 MG TABS [...] per day 06/27 CARAFATE 1 GM TAB 844728 SUCRALFATE Inactive SM VITAMIN B12 TR 1000 MCG ORAL CR-TABS 1 tab po daily SM VITAMIN B12 TR 1000 MCG ORAL CR-TABS CYANOCOBALAMIN Inactive CIPROFLOXACIN HCL 250 MG ORAL TABS 1 twice a day for bladder infection 07/24 CIPROFLOXACIN HCL 250 MG ORAL TABS 860871 CIPROFLOXACIN HCL Inactive AZO TABS TABS 2 tabs qd AZO TABS TABS PHENAZOPYRIDINE HCL TABS Inactive CIPRO 500 MG TAB 1 tablet by mouth twice daily CIPRO 500 MG TAB 572525 CIPROFLOXACIN HCL Inactive AZITHROMYCIN 250 MG TABS 2 po qd x 1 day, then 1 po qd x 4 days AZITHROMYCIN 250 MG TABS 2385756 AZITHROMYCIN Inactive Immunizations Vaccine Administration Date Value [...] HGBA1C - Chemistry sodium, serum 142 mmol/L 901-082 6840 carbon dioxide, venous blood 32.8 mmol/L 21.0-32.0 [...] Panel - Chemistry cholesterol, serum 165 mg/dL 164-230 0548 triglyceride, serum, fasting 124 mg/dL 30-200 HDL [...] 30-100 Encounters Code Encounter Date Provider Facility CPT-98611 Level 3 Est. Patient 11:17:51 [facility]T [facility] CPT-07839 Level 3 Est. Patient 15:43:38 CDT Tariq Marrero MD [facility] CPT-97445 Level 3 Est. Patient 11:16:27 CHANGE CONSULTANT Nereyda Rodriguez [facility] CPT-11476 Level 4 Est. Patient 08:56:42 CHANGE CONSULTANT Sasha Espitia [facility] CPT-24532 Level 3 Est. Patient 16:40:58 CDT Rian Ortega MD [facility] CPT-87177 Level 3 Est. Patient 13:55:16 CHANGE CONSULTANT Rian Ortega MD [facility] CPT-19959 Level 3 Est. Patient 10:42:52 CDT Corrina Garcianikita [facility] CPT-00074 Level 3 Est. Patient 11:18:30 CDT Aris Charlton MD [facility] Procedures Code Procedure Name Date Entry Date Standard Description CPT-52856 UA w micro - LAB USE ONLY 13:09:18 CHANGE CONSULTANT CPT-54647 Urine Culture - LAB USE ONLY 13:09:18 CHANGE CONSULTANT CPT-58396 Wet Mount - LAB USE ONLY 11:11:39 CHANGE CONSULTANT CPT-56390 Lipid - LAB USE ONLY 15:05:24 CHANGE CONSULTANT CPT-32464 PT/INR - LAB USE ONLY 12:14:07 CDT CPT-90034 HGBA1C - LAB USE ONLY 12:14:07 CDT CPT-98122 CMP - LAB USE ONLY 12:14:07 CDT CPT-38385 CBC - LAB USE ONLY 12:14:07 CDT CPT-53432 Venipuncture Draw Fee 12:14:06 CDT CPT-J0702 Celestone 6 mg (Betamethasone) 15:04:45 CHANGE CONSULTANT CPT-60840 Abx/Therapy Injection 15:04:45 CHANGE CONSULTANT CPT-J0702 Celestone 12 mg (Betamethasone) 11:45:31 CHANGE CONSULTANT CPT-79697 Visit 11:39:52 CHANGE CONSULTANT CPT-13921Z Sono biophysical pro wo stress test-[facility] 11:21: 42 CHANGE CONSULTANT CPT-78880 Visit 16:00:50 CHANGE CONSULTANT CPT-48349O Sono biophysical pro wo stress test-[facility] 13:12: 18 CHANGE CONSULTANT CPT-93632 Sono biophysical pro wo stress test 11:17:21 CHANGE CONSULTANT 05/21 CPT-14224 Tdap 7yrs or > 15:22:51 CHANGE CONSULTANT CPT-04754 Immunization Single Admin 15:22:51 CHANGE CONSULTANT CPT-19183 Tdap 7yrs or > 15:09:13 CHANGE CONSULTANT CPT-06564 Visit 14:54:16 CHANGE CONSULTANT CPT-51076 Fluzone Quadrivalent Intramuscular Suspension 0.5 ML 16: 58:58 CDT CPT-66545 Administration single or combination vaccine inc oral 16 :58:58 CDT CPT-10540 Fluzone Thim Free 36mo and older 14:47:39 CDT CPT-64959 Visit 14:47:39 CDT CPT-18978 Sono OB limited 10:30:07 CDT CPT-16419 Visit 10:04:44 CDT CPT-87057 Sono OB comp > 14 weeks 12:50:41 CDT CPT-67074 Visit 12:06:25 CDT CPT-42502 Visit 12:43:15 CDT CPT-11402 Visit 10:06:02 CDT CPT-27597 Spec Collection and Handling Fee 10:00:31 CDT CPT-81314 Visit 10:00:30 CDT CPT-23750 Drug Screen [place] 14:36:13 CDT
--- OUTSIDE RECORDS SUMMARY | 2018-08-28 06:57 | XMS REPORT | Clinical Summary ---
[...] TAB four tabs PO x 1 METRONIDAZOLE 95862100474 Active Karen Jaramillo MD Active Immunizations Vaccine [...] % 11.0-15.0 platelet count 307 THOUSAND/UL 10*3/mm3 368-071 5364/05/26 mean platelet volume 8.9 fL 7.5-11.5 Blood [...] Report: Thyroid Stimulating Hormone (L), [facility] TSH 2.31 m[iU]/mL 0.36-3.74 Lab Report: [facility] [place] - Chemistry human [...] Procedure Name Date Entry Date Standard Description CPT-35817 Spec Collection and Handling Fee 10:00:31 CDT CPT-24074 Visit 10:00:30 CDT CPT-18784 Drug Screen [place] 14:36:13 CDT
--- OUTSIDE RECORDS SUMMARY | 2018-08-28 06:58 | XMS REPORT | Clinical Summary ---
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 V72.31 Active Sasha Espitia AVIONIC TECHNICIAN Routine gynecological examination Bariatric operative procedure V45.86 [...] MG ORAL TABS 1 daily VIT-FE FUMARATE-FA 80557823277 No Longer Active Sasha Espitia APRN Active CHANTIX STARTING MONTH DANILO 0.5 MG X 11 & 1 MG X 42 TABS take as directed 2015 VARENICLINE TARTRATE 70838477023 No Longer Active Sasha Espitia APRN Active CHANTIX 1 MG TABS 1 twice a day to help quit smoking VARENICLINE TARTRATE 28809508577 No Longer Active Sasha Omkar AVIONIC TECHNICIAN Active OMEPRAZOLE 20 MG CPDR 1 tablet by mouth daily OMEPRAZOLE 83661320216 Active Sasha Espitia APRN Active CARAFATE 1 GM TAB 1 tab po as needed up to 4 times per day SUCRALFATE 69855048236 Active Sasha Espitia AVIONIC TECHNICIAN Active FLINSTONES GUMMIES OMEGA-3 DHA ORAL CHEW 2 gummies per day PEDIATRIC MULTIPLE VIT-C-FA 15597550244 Active Sasha Espitia APRN Active SM VITAMIN B12 TR 1000 MCG ORAL CR-TABS 1 tab po daily CYANOCOBALAMIN 23521176534 Active Sasha Espitia AVIONIC TECHNICIAN Active CLINDAMYCIN HCL 150 MG CAPS 1 four times a day for 1 week CLINDAMYCIN HCL 10531960675 No Longer Active Karen Jaramillo MD Active TRIAMCINOLONE ACETONIDE 0.1 % CREA Apply to affected areas TID for up to 1 week TRIAMCINOLONE ACETONIDE 16312655678 No Longer Active Rian Ortega MD Active ZITHROMAX 1 GM ORAL PACK Take 1 time and recheck lab in 2-3 weeks AZITHROMYCIN 13200907716 No Longer Active Rian Ortega MD Active FLAGYL 500 MG TAB four tabs PO x 1 METRONIDAZOLE 57064061114 No Longer Active Aris Charlton MD Active FLAGYL 500 MG TAB four tabs PO x 1 FLAGYL 500 MG TAB 371147 METRONIDAZOLE Inactive ZITHROMAX 1 GM ORAL PACK Take 1 time and recheck lab in 2-3 weeks ZITHROMAX 1 GM ORAL PACK 657862 AZITHROMYCIN Inactive TRIAMCINOLONE ACETONIDE 0.1 % CREA Apply to affected areas TID for up to 1 week TRIAMCINOLONE ACETONIDE 0.1 % CREA 8627279 TRIAMCINOLONE ACETONIDE Inactive CLINDAMYCIN HCL 150 MG CAPS 1 four times a day for 1 week CLINDAMYCIN HCL 150 MG CAPS 722362 CLINDAMYCIN HCL Inactive CHANTIX 1 MG TABS [...] Hormone (L), Free Thyroxine (L) - Chemistry thyroxine, serum, free 0.80 ng/dL 0.76-1.46 TSH 1.66 m[iU]/mL 0.36-3.74 Lab Report: CBC, Thyroid Stimulating Hormone (L), Free Thyroxine (L) - Hematology mean corpuscular volume, RBC 92 fL 80-97 hematocrit, blood 32.9 % 36.0-46.0 hemoglobin, blood 11.2 g/dL 12.0-16.0 erythrocyte (RBC) count 3.60 10^6/MM^3 10*6/mm3 4.04-5.48 leukocyte count, blood 11.7 10^3/MM^3 10*3/mm3 4.6-10.2 platelet count 302 10^3/MM^3 10*3/mm3 751-494 8568/11/18 red blood cell distribution width 13.7 % 11.6-14.8 mean corpuscular hemoglobin concentration, RBC 33.9 G/DL % 31.8- 35.4 mean corpuscular hemoglobin, RBC 31.0 pg 27.0-31.2 Office Visit: follow up ob - Urinalysis protein, urine, semiquantitative (dipstick) Tr glucose, urine, semiquantitative N nitrite, urine, semiquantitative N Encounters Code Encounter Date Provider Facility CPT-10428 Level 3 Est. Patient 16:40:58 CDT Rian Ortega MD [facility] CPT-59848 Level 3 Est. Patient 13:55:16 FRAME CLEANER Rian Ortega MD [facility] CPT-90140 Level 3 Est. Patient 10:42:52 CDT Corrina Bailon APRN [facility] CPT-80212 Level 3 Est. Patient 11:18:30 CDT Aris Charlton MD [facility] Procedures Code Procedure Name Date Entry Date Standard Description CPT-74768 PT/INR - LAB USE ONLY 12:14:07 CDT CPT-76067 HGBA1C - LAB USE ONLY 12:14:07 CDT CPT-23028 CMP - LAB USE ONLY 12:14:07 CDT CPT-38045 CBC - LAB USE ONLY 12:14:07 CDT CPT-72537 Venipuncture Draw Fee 12:14:06 CDT CPT-J0702 Celestone 6 mg (Betamethasone) 15:04:45 FRAME CLEANER CPT-12061 Abx/Therapy Injection 15:04:45 FRAME CLEANER CPT-J0702 Celestone 12 mg (Betamethasone) 11:45:31 FRAME CLEANER CPT-96237 Visit 11:39:52 FRAME CLEANER CPT-62309I Sono biophysical pro wo stress test-[place] Only 11:21: 42 FRAME CLEANER CPT-75126 Visit 16:00:50 FRAME CLEANER CPT-39579I Sono biophysical pro wo stress test-[place] Only 13:12: 18 FRAME CLEANER CPT-92374 Sono biophysical pro wo stress test 11:17:21 FRAME CLEANER 05/21 CPT-47398 Tdap 7yrs or > 15:22:51 FRAME CLEANER CPT-68158 Immunization Single Admin 15:22:51 FRAME CLEANER CPT-59618 Tdap 7yrs or > 15:09:13 FRAME CLEANER CPT-44512 Visit 14:54:16 FRAME CLEANER CPT-71004 Fluzone Quadrivalent Intramuscular Suspension 0.5 ML 16: 58:58 CDT CPT-52993 Administration single or combination vaccine inc oral 16 :58:58 CDT CPT-86211 Fluzone Thim Free 36mo and older 14:47:39 CDT CPT-21104 Visit 14:47:39 CDT CPT-61670 Sono OB limited 10:30:07 CDT CPT-03415 Visit 10:04:44 CDT CPT-25360 Sono OB comp > 14 weeks 12:50:41 CDT CPT-58881 Visit 12:06:25 CDT CPT-43562 Visit 12:43:15 CDT CPT-32364 Visit 10:06:02 CDT CPT-00993 Spec Collection and Handling Fee 10:00:31 CDT CPT-85088 Visit 10:00:30 CDT CPT-07205 Drug Screen [place] 14:36:13 CDT
--- OUTSIDE RECORDS SUMMARY | 2018-08-28 06:58 | XMS REPORT | Clinical Summary ---
Author Author Admin, E Organization [employer] Address Unknown Phone Unavailable Allergies, Adverse Reactions, [...] Active Rian Ortega MD Tobacco use disorder Crime Scene Analyst well woman exam V72.31 Active Sasha [...] Abscess, skin ICD-682.9 Inactive Rian Ortega MD Health examination of defined subpopulations ICD-V70.5 Inactive Karen Jaramillo MD 30 weeks gestation of ICD-V28.9 Inactive [...] then 1 daily for 4 days AZITHROMYCIN 93829544465 Active Mahsa Alvarez Active AZITHROMYCIN 250 MG ORAL TABLET 2 po qd x 1 day, then 1 po qd x 4 days 07/27 AZITHROMYCIN 65919135529 No Longer Active Carline Best APRN Active GUAIFENESIN ER 600 MG ORAL TABLET EXTENDED RELEASE 12 HOUR 1 twice a day as needed for congestion GUAIFENESIN 15553994395 No Longer Active Sasha Tan APRN Active CYCLOBENZAPRINE HCL 10 MG ORAL TABLET 1 three times a day as needed for muscle spasm CYCLOBENZAPRINE HCL 13620298062 No Longer Active Sasha Tan APRN Active SYMBICORT 160-4.5 MCG/ACT INHALATION AEROSOL 2 puff BID for 10 days BUDESONIDE-FORMOTEROL FUMARATE 26275691992 No Longer Active Rian Ortega MD Active AZITHROMYCIN 250 MG ORAL TABLET 2 po qd x 1 day, then 1 po qd x 4 days 02/15 AZITHROMYCIN 26069440195 No Longer Active Carline Best APRN Active CIPRO 500 MG ORAL TABLET 1 tablet by mouth twice daily CIPROFLOXACIN HCL 98962530566 No Longer Active Tariq Marrero MD Active AZO TABS TABLET 2 tabs qd PHENAZOPYRIDINE HCL TABS 64134390805 No Longer Active Tariq Marrero MD Active CIPROFLOXACIN HCL 250 MG ORAL TABLET 1 twice a day for bladder infection 2016 CIPROFLOXACIN HCL 66574770502 No Longer Active Tariq Marrero MD Active SM VITAMIN B12 TR 1000 MCG ORAL TABLET EXTENDED RELEASE 1 tab po daily 04/24 CYANOCOBALAMIN 64397989113 No Longer Active Neeryda Rodriguez APRN Active CARAFATE 1 GM ORAL TABLET 1 tab po as needed up to 4 times per day SUCRALFATE 39000744600 No Longer Active Nereyda Rodriguez APRN Active PNV PLUS MULTIVITAMIN 27-1 MG ORAL TABLET 1 daily 04/24 VIT-FE FUMARATE-FA 27056851798 No Longer Active Sasha Tan APRN Active CHANTIX STARTING MONTH DANILO 0.5 MG X 11 & 1 MG X 42 ORAL TABLET take as directed VARENICLINE TARTRATE 58336229589 No Longer Active Sasha Tan APRN Active CHANTIX 1 MG ORAL TABLET 1 twice a day to help quit smoking 04/24 VARENICLINE TARTRATE 17646916957 No Longer Active Sasha Tan APRN Active OMEPRAZOLE 20 MG ORAL CAPSULE DELAYED RELEASE 1 tablet by mouth daily OMEPRAZOLE 42609099655 Active Sasha Tan APRN Active FLINSTONES GUMMIES OMEGA-3 DHA ORAL TABLET CHEWABLE 2 gummies per day PEDIATRIC MULTIPLE VIT-C-FA 77021777653 Active Sasha Tan APRN Active CLINDAMYCIN HCL 150 MG ORAL CAPSULE 1 four times a day for 1 week CLINDAMYCIN HCL 48279656293 No Longer Active Karen Jaramillo MD Active TRIAMCINOLONE ACETONIDE 0.1 % EXTERNAL CREAM Apply to affected areas TID for up to 1 week TRIAMCINOLONE ACETONIDE 21068265132 No Longer Active Rian Ortega MD Active ZITHROMAX 1 GM ORAL PACKET Take 1 time and recheck lab in 2-3 weeks AZITHROMYCIN 98759117378 No Longer Active Rian Ortega MD Active FLAGYL 500 MG ORAL TABLET four tabs PO x 1 METRONIDAZOLE 96684455123 No Longer Active Aris Charlton MD Active FLAGYL 500 MG ORAL TABLET four tabs PO x 1 FLAGYL 500 MG ORAL TABLET 047236 METRONIDAZOLE Inactive ZITHROMAX 1 GM ORAL PACKET Take 1 time and recheck lab in 2-3 weeks ZITHROMAX 1 GM ORAL PACKET 311462 AZITHROMYCIN Inactive TRIAMCINOLONE ACETONIDE 0.1 % EXTERNAL CREAM Apply to affected areas TID for up to 1 week TRIAMCINOLONE ACETONIDE 0.1 % EXTERNAL CREAM 8056502 TRIAMCINOLONE ACETONIDE Inactive CLINDAMYCIN HCL 150 MG ORAL CAPSULE 1 four times a day for 1 week CLINDAMYCIN HCL 150 MG ORAL CAPSULE 064852 CLINDAMYCIN HCL Inactive CHANTIX 1 MG ORAL [...] per day CARAFATE 1 GM ORAL TABLET 526381 SUCRALFATE Inactive SM VITAMIN B12 TR 1000 MCG ORAL TABLET EXTENDED RELEASE 1 tab po daily 04/24 SM VITAMIN B12 TR 1000 MCG ORAL TABLET EXTENDED RELEASE CYANOCOBALAMIN Inactive CIPROFLOXACIN HCL 250 MG ORAL TABLET 1 twice a day for bladder infection 2016 CIPROFLOXACIN HCL 250 MG ORAL TABLET 650396 CIPROFLOXACIN HCL Inactive AZO TABS TABLET 2 tabs qd AZO TABS TABLET PHENAZOPYRIDINE HCL TABS Inactive SYMBICORT 160-4.5 MCG/ACT INHALATION AEROSOL 2 puff BID for 10 days SYMBICORT 160-4.5 MCG/ACT INHALATION AEROSOL BUDESONIDE- FORMOTEROL FUMARATE Inactive CYCLOBENZAPRINE HCL 10 MG ORAL TABLET 1 three times a day as needed for muscle spasm CYCLOBENZAPRINE HCL 10 MG ORAL TABLET 216276 CYCLOBENZAPRINE HCL Inactive GUAIFENESIN ER 600 MG ORAL TABLET EXTENDED RELEASE 12 HOUR 1 twice a day as needed for congestion GUAIFENESIN ER 600 MG ORAL TABLET EXTENDED RELEASE 12 HOUR GUAIFENESIN Inactive CIPRO 500 MG ORAL TABLET 1 tablet by mouth twice daily CIPRO 500 MG ORAL TABLET 971406 CIPROFLOXACIN HCL Inactive AZITHROMYCIN 250 MG ORAL TABLET 2 po qd x 1 day, then 1 po qd x 4 days 02/15 AZITHROMYCIN 250 MG ORAL TABLET 571707 AZITHROMYCIN Inactive AZITHROMYCIN 250 MG ORAL TABLET 2 po qd x 1 day, then 1 po qd x 4 days 07/27 AZITHROMYCIN 250 MG ORAL TABLET 251440 AZITHROMYCIN Inactive Immunizations Vaccine Administration Date Value [...] ... - Chemistry cholesterol, serum 142 mg/dL 868-884 1856/10/24 triglyceride, serum, fasting 77 mg/dL 30-200 HDL [...] % 11.6-14.8 platelet count 291 10^3/MM^3 10*3/mm3 001-359 0779/10/24 mean corpuscular volume, RBC 90 fL 80-97 hematocrit, blood 40.6 % 37.0-47.0 hemoglobin, blood 13.3 g/dL 12.0-16.0 erythrocyte (RBC) count 4.51 10^6/MM^3 10*6/mm3 3.80-5.80 leukocyte count, blood 6.9 10^3/MM^3 10*3/mm3 4.6-10.2 Lab Report: Comp. Metabolic Panel - Chemistry sodium, serum 137 mmol/L 318-856 5874/10/24 carbon dioxide, venous blood 24.4 mmol/L 21.0-32.0 [...] Negative;Positive Encounters Code Encounter Date Provider Facility CPT-13063 Level 3 Est. Patient 14:41:20 CDT Tariq Marrero MD [facility] CPT-99337 Level 3 Est. Patient 11:06:09 FISHER LOBSTER Carline Best [facility] [place] CPT-33673 Level 3 Est. Patient 15:59:13 FISHER LOBSTER Carline Best [facility] [place] CPT-52655 Employment/ICC Exam 15:03:09 FISHER LOBSTER Sasha Tan [facility] [place] CPT-09041 Level 3 Est. Patient 11:54:40 CDT Rian Ortega MD [facility] CPT-90486 Level 3 Est. Patient 11:17:51 CDT Carline Best [facility] [place] CPT-89766 Level 3 Est. Patient 15:43:38 CDT Tariq Marrero MD [facility] CPT-20519 Level 3 Est. Patient 11:16:27 FISHER LOBSTER Nereyda Rodriguez [facility] [place] CPT-96792 Level 4 Est. Patient 08:56:42 FISHER LOBSTER Sasha Tan [facility] [place] CPT-44772 Level 3 Est. Patient 16:40:58 CDT Rian Ortega MD [facility] CPT-61761 Level 3 Est. Patient 13:55:16 FISHER LOBSTER Rian Ortega MD [facility] CPT-11436 Level 3 Est. Patient 10:42:52 CDT Corrina Baioln QUALITY ASSURANCE COACH [facility] CPT-29223 Level 3 Est. Patient 11:18:30 CDT Aris Charlton MD [facility] Procedures Code Procedure Name Date Entry Date Standard Description CPT-05518 UA w micro - LAB USE ONLY 13:09:18 FISHER LOBSTER CPT-18319 Urine Culture - LAB USE ONLY 13:09:18 FISHER LOBSTER CPT-79087 Wet Mount - LAB USE ONLY 11:11:39 FISHER LOBSTER CPT-93625 Lipid - LAB USE ONLY 15:05:24 FISHER LOBSTER CPT-17733 PT/INR - LAB USE ONLY 12:14:07 CDT CPT-33058 HGBA1C - LAB USE ONLY 12:14:07 CDT CPT-55414 CMP - LAB USE ONLY 12:14:07 CDT CPT-14938 CBC - LAB USE ONLY 12:14:07 CDT CPT-89156 Venipuncture Draw Fee 12:14:06 CDT CPT-J0702 Celestone 6 mg (Betamethasone) 15:04:45 FISHER LOBSTER CPT-48131 Abx/Therapy Injection 15:04:45 FISHER LOBSTER CPT-J0702 Celestone 12 mg (Betamethasone) 11:45:31 FISHER LOBSTER CPT-20745 Visit 11:39:52 FISHER LOBSTER CPT-45067U [employer]o biophysical pro wo stress test-[place] Only 11:21: 42 FISHER LOBSTER CPT-00637 Visit 16:00:50 FISHER LOBSTER CPT-15114Z [employer] biophysical pro wo stress test-[place] Only 13:12: 18 FISHER LOBSTER CPT-24203 Sono biophysical pro wo stress test 11:17:21 FISHER LOBSTER 05/21 CPT-51788 Tdap 7yrs or > 15:22:51 FISHER LOBSTER CPT-29142 Immunization Single Admin 15:22:51 FISHER LOBSTER CPT-56720 Tdap 7yrs or > 15:09:13 FISHER LOBSTER CPT-80054 Visit 14:54:16 FISHER LOBSTER CPT-48725 Fluzone Quadrivalent Intramuscular Suspension 0.5 ML 16: 58:58 CDT CPT-81796 Administration single or combination vaccine inc oral 16 :58:58 CDT CPT-70474 Fluzone Thim Free 36mo and older 14:47:39 CDT CPT-80962 Visit 14:47:39 CDT CPT-32088 Sono OB limited 10:30:07 CDT CPT-67477 Visit 10:04:44 CDT CPT-96126 Sono OB comp > 14 weeks 12:50:41 CDT CPT-09610 Visit 12:06:25 CDT CPT-77050 Visit 12:43:15 CDT CPT-80515 Visit 10:06:02 CDT CPT-97237 Spec Collection and Handling Fee 10:00:31 CDT CPT-06111 Visit 10:00:30 CDT CPT-45226 Drug Screen Grisel 14:36:13 CDT
--- OUTSIDE RECORDS SUMMARY | 2018-08-28 06:58 | XMS REPORT | Clinical Summary ---
Author Author Admin, E Organization [facility] Address Unknown Phone [...] and recheck lab in 2-3 weeks AZITHROMYCIN 18415754400 Active Carolina Mayfield LPN Active TRIAMCINOLONE ACETONIDE 0.1 % CREA Apply to affected areas TID for up to 1 week TRIAMCINOLONE ACETONIDE 58663270602 Active Aris Charlton MD Active PNV PLUS MULTIVITAMIN 27-1 MG ORAL TABS 1 daily VIT-FE FUMARATE-FA 83161648046 Active Aris Charlton MD Active FLAGYL 500 MG TAB four tabs PO x 1 METRONIDAZOLE 66560351340 No Longer Active Aris Charlton MD Active FLAGYL 500 MG TAB four tabs PO x 1 FLAGYL 500 MG TAB 204028 METRONIDAZOLE Inactive Immunizations Vaccine Administration Date Value [...] % 11.0-15.0 platelet count 307 THOUSAND/UL 10*3/mm3 877-848 7775/05/26 mean platelet volume 8.9 fL 7.5-11.5 Blood [...] antibody, serum, IgG 2.66 Lab Report: Chlamydia/GC APTIMA/97714 - Lab chlamydia DNA probe DETECTED NOT DETECTED Lab Report: Chlamydia/GC APTIMA/40262 - Microbiology Neisseria gonorrhoeae DNA probe NOT [...] pH, urine, semiquantitative 7.0 5.0-8.5 Lab Report: [facility] [place] Chemistry human chorionic gonadotropin, urine, qualitative [...] N Encounters Code Encounter Date Provider Facility CPT-82701 Level 3 Est. Patient 10:42:52 CDT Corrina Bailon APRN [facility] CPT-15633 Level 3 Est. Patient 11:18:30 CDT Aris Charlton MD [facility] Procedures Code Procedure Name Date Entry Date Standard Description CPT-14917 Visit 10:06:02 CDT CPT-72873 Spec Collection and Handling Fee 10:00:31 CDT CPT-41658 Visit 10:00:30 CDT CPT-41469 Drug Screen Grisel 14:36:13 CDT
--- OUTSIDE RECORDS SUMMARY | 2018-08-28 06:59 | XMS REPORT | Clinical Summary ---
Author Author Admin, [facility] Organization [facility] Address Unknown Phone Unavailable Allergies, Adverse Reactions, [...] or complication Trichomonal vaginitis 131.01 Resolved Rian rOtega MD Trichomonal vulvovaginitis Insect bite 919.4 Resolved [...] Active Rian Ortega MD Tobacco use disorder Principal Cloud Architect well woman exam V72.31 Active Sasha Espitia DIESEL MECHANIC Routine gynecological examination Bariatric operative procedure V45.86 [...] MG ORAL TABS 1 daily VIT-FE FUMARATE-FA 55363380165 No Longer Active Sasha Espitia APRN Active CHANTIX STARTING MONTH DANILO 0.5 MG X 11 & 1 MG X 42 TABS take as directed 2015 VARENICLINE TARTRATE 74541538585 No Longer Active Ssaha Espitia APRN Active CHANTIX 1 MG TABS 1 twice a day to help quit smoking VARENICLINE TARTRATE 73207818709 No Longer Active Sasha Omkar DIESEL MECHANIC Active OMEPRAZOLE 20 MG CPDR 1 tablet by mouth daily OMEPRAZOLE 43389785834 Active Sasha Espitia DIESEL MECHANIC Active CARAFATE 1 GM TAB 1 tab po as needed up to 4 times per day SUCRALFATE 75607982487 Active Sasha Espitia DIESEL MECHANIC Active FLINSTONES GUMMIES OMEGA-3 DHA ORAL CHEW 2 gummies per day PEDIATRIC MULTIPLE VIT-C-FA 33750022127 Active Sasha Espitia DIESEL MECHANIC Active SM VITAMIN B12 TR 1000 MCG ORAL CR-TABS 1 tab po daily CYANOCOBALAMIN 45247237142 Active Sasha Espitia BETO Active CLINDAMYCIN HCL 150 MG CAPS 1 four times a day for 1 week CLINDAMYCIN HCL 64044805754 No Longer Active Karen Jaramillo MD Active TRIAMCINOLONE ACETONIDE 0.1 % CREA Apply to affected areas TID for up to 1 week TRIAMCINOLONE ACETONIDE 80733242253 No Longer Active Rian Ortega MD Active ZITHROMAX 1 GM ORAL PACK Take 1 time and recheck lab in 2-3 weeks AZITHROMYCIN 62906403529 No Longer Active Rian Ortega MD Active FLAGYL 500 MG TAB four tabs PO x 1 METRONIDAZOLE 04689563134 No Longer Active Aris Charlton MD Active FLAGYL 500 MG TAB four tabs PO x 1 FLAGYL 500 MG TAB 105390 METRONIDAZOLE Inactive ZITHROMAX 1 GM ORAL PACK Take 1 time and recheck lab in 2-3 weeks ZITHROMAX 1 GM ORAL PACK 507569 AZITHROMYCIN Inactive TRIAMCINOLONE ACETONIDE 0.1 % CREA Apply to affected areas TID for up to 1 week TRIAMCINOLONE ACETONIDE 0.1 % CREA 5005545 TRIAMCINOLONE ACETONIDE Inactive CLINDAMYCIN HCL 150 MG CAPS 1 four times a day for 1 week CLINDAMYCIN HCL 150 MG CAPS 594183 CLINDAMYCIN HCL Inactive CHANTIX 1 MG TABS [...] HGBA1C - Chemistry sodium, serum 142 mmol/L 661-643 3489 carbon dioxide, venous blood 32.8 mmol/L 21.0-32.0 [...] Panel - Chemistry cholesterol, serum 165 mg/dL 494-864 8336 triglyceride, serum, fasting 124 mg/dL 30-200 HDL cholesterol, serum 47 mg/dL 32-96 LDL cholesterol, serum 93 mg/dL 0-130 Lab Report: Prothrombin Time - Coagulation prothrombin time (patient) 12.0 SECS s 11.1-13.4 international normalized ratio (INR) 1.0 1.0-3.5 Office Visit: follow up ob - Urinalysis protein, urine, semiquantitative (dipstick) Tr glucose, urine, semiquantitative N nitrite, urine, semiquantitative N Encounters Code Encounter Date Provider Facility CPT-43977 Level 3 Est. Patient 16:40:58 CDT Rian Ortega MD [facility] CPT-97200 Level 3 Est. Patient 13:55:16 BREWERY REPRESENTATIVE Rian Ortega MD [facility] CPT-34851 Level 3 Est. Patient 10:42:52 CDT Corrina Garcianikita PÉREZ [facility] CPT-77331 Level 3 Est. Patient 11:18:30 CDT Aris Charlton MD [facility] Procedures Code Procedure Name Date Entry Date Standard Description CPT-93815 PT/INR - LAB USE ONLY 12:14:07 CDT CPT-76394 HGBA1C - LAB USE ONLY 12:14:07 CDT CPT-42263 CMP - LAB USE ONLY 12:14:07 CDT CPT-04178 CBC - LAB USE ONLY 12:14:07 CDT CPT-68078 Venipuncture Draw Fee 12:14:06 CDT CPT-J0702 Celestone 6 mg (Betamethasone) 15:04:45 BREWERY REPRESENTATIVE CPT-01802 Abx/Therapy Injection 15:04:45 BREWERY REPRESENTATIVE CPT-J0702 Celestone 12 mg (Betamethasone) 11:45:31 BREWERY REPRESENTATIVE CPT-73743 Visit 11:39:52 BREWERY REPRESENTATIVE CPT-92258Y Sono biophysical pro wo stress test-[place] Only 11:21: 42 BREWERY REPRESENTATIVE CPT-32635 Visit 16:00:50 BREWERY REPRESENTATIVE CPT-08476D Sono biophysical pro wo stress test-[facility] 13:12: 18 BREWERY REPRESENTATIVE CPT-59278 Sono biophysical pro wo stress test 11:17:21 BREWERY REPRESENTATIVE 05/21 CPT-16680 Tdap 7yrs or > 15:22:51 BREWERY REPRESENTATIVE CPT-11097 Immunization Single Admin 15:22:51 BREWERY REPRESENTATIVE CPT-91222 Tdap 7yrs or > 15:09:13 BREWERY REPRESENTATIVE CPT-75580 Visit 14:54:16 BREWERY REPRESENTATIVE CPT-81681 Fluzone Quadrivalent Intramuscular Suspension 0.5 ML 16: 58:58 CDT CPT-45134 Administration single or combination vaccine inc oral 16 :58:58 CDT CPT-49801 Fluzone Thim Free 36mo and older 14:47:39 CDT CPT-86047 Visit 14:47:39 CDT CPT-73893 Sono OB limited 10:30:07 CDT CPT-19993 Visit 10:04:44 CDT CPT-11750 Sono OB comp > 14 weeks 12:50:41 CDT CPT-34841 Visit 12:06:25 CDT CPT-97101 Visit 12:43:15 CDT CPT-55383 Visit 10:06:02 CDT CPT-92791 Spec Collection and Handling Fee 10:00:31 CDT CPT-68600 Visit 10:00:30 CDT CPT-89056 Drug Screen [place]isel 14:36:13 CDT
--- OUTSIDE RECORDS SUMMARY | 2018-08-28 07:00 | XMS REPORT | Clinical Summary ---
Author Author Admin, E Organization [facility] Address Unknown Phone Unavailable Allergies, Adverse Reactions, Alerts Allergy Name Reaction Description Start Date Severity Status Provider No Known Allergies [facility] Conditions or Problems Problem Name Problem Code Onset Date Status Entry Date Provider Comment Standard Description Annotate Health examination of defined subpopulations V70.5 Active 10/15 Patrciia Kat Health examination of defined subpopulations Supervision of other normal V22.1 Active Karen Jaramilol MD Supervision of other normal Advanced maternal [...] and recheck lab in 2-3 weeks AZITHROMYCIN 82657259240 Active Carolina Mayfield LPN Active TRIAMCINOLONE ACETONIDE 0.1 % CREA Apply to affected areas TID for up to 1 week TRIAMCINOLONE ACETONIDE 71146502524 Active Aris Charlton MD Active PNV PLUS MULTIVITAMIN 27-1 MG ORAL TABS 1 daily VIT-FE FUMARATE-FA 07999125706 Active Aris Charlton MD Active FLAGYL 500 MG TAB four tabs PO x 1 METRONIDAZOLE 39539040054 No Longer Active Aris Charlton MD Active FLAGYL 500 MG TAB four tabs PO x 1 FLAGYL 500 MG TAB 402932 METRONIDAZOLE Inactive Immunizations Vaccine Administration Date Value [...] % 11.0-15.0 platelet count 307 THOUSAND/UL 10*3/mm3 368-201 4489/05/26 mean platelet volume 8.9 fL 7.5-11.5 Blood [...] antibody, serum, IgG 2.66 Lab Report: Chlamydia/GC APTIMA/76518 - Lab chlamydia DNA probe DETECTED NOT DETECTED Lab Report: Chlamydia/GC APTIMA/23576 - Microbiology Neisseria gonorrhoeae DNA probe NOT DETECTED NOT DETECTED Lab Report: HGBA1C - Chemistry hemoglobin A1C, blood, as % of total hemoglobin 5.3 % 4.3-6.0 Lab Report: Thyroid Stimulating Hormone (L), [facility] TSH 2.31 m[iU]/mL 0.36-3.74 Lab Report: [facility] [place] - Chemistry human chorionic gonadotropin, urine, qualitative [...] UC Encounters Code Encounter Date Provider Facility CPT-06269 Level 3 Est. Patient 10:42:52 CDT Corrina Bailon APRN [facility] CPT-16136 Level 3 Est. Patient 11:18:30 CDT Aris Charlton MD [facility] Procedures Code Procedure Name Date Entry Date Standard Description CPT-91096 Spec Collection and Handling Fee 10:00:31 CDT CPT-99538 Visit 10:00:30 CDT CPT-03887 Drug Screen Grisel 14:36:13 CDT
--- OUTSIDE RECORDS SUMMARY | 2018-08-28 07:00 | XMS REPORT | Clinical Summary ---
Author Author Admin, E Organization [facility] Address Unknown Phone Unavailable Allergies, [...] a day for 1 week CLINDAMYCIN HCL 85656217127 No Longer Active Karen Jaramillo MD Active TRIAMCINOLONE ACETONIDE 0.1 % CREA Apply to affected areas TID for up to 1 week TRIAMCINOLONE ACETONIDE 41405189707 No Longer Active Rian Ortega MD Active ZITHROMAX 1 GM ORAL PACK Take 1 time and recheck lab in 2-3 weeks AZITHROMYCIN 53546071387 No Longer Active Rian Ortega MD Active PNV PLUS MULTIVITAMIN 27-1 MG ORAL TABS 1 daily VIT-FE FUMARATE-FA 28613469344 Active Aris Charlton MD Active FLAGYL 500 MG TAB four tabs PO x 1 METRONIDAZOLE 13450978110 No Longer Active Aris Charlton MD Active FLAGYL 500 MG TAB four tabs PO x 1 FLAGYL 500 MG TAB 211473 METRONIDAZOLE Inactive ZITHROMAX 1 GM ORAL PACK Take 1 time and recheck lab in 2-3 weeks ZITHROMAX 1 GM ORAL PACK 881245 AZITHROMYCIN Inactive TRIAMCINOLONE ACETONIDE 0.1 % CREA Apply to affected areas TID for up to 1 week TRIAMCINOLONE ACETONIDE 0.1 % CREA 8721407 TRIAMCINOLONE ACETONIDE Inactive CLINDAMYCIN HCL 150 MG CAPS 1 four times a day for 1 week CLINDAMYCIN HCL 150 MG CAPS 341187 CLINDAMYCIN HCL Inactive Immunizations Vaccine Administration Date [...] % 11.0-15.0 platelet count 307 THOUSAND/UL 10*3/mm3 057-210 6111/05/26 mean platelet volume 8.9 fL 7.5-11.5 Blood [...] ... - Chemistry sodium, serum 137 mmol/L 610-089 5069/08/28 potassium, serum 4.3 mmol/L 3.5-5.2 chloride, serum [...] 302 10^3/MM^3 10*3/mm3 142-424 Lab Report: Chlamydia/GC APTIMA/76021 - Lab chlamydia DNA probe NOT DETECTED NOT DETECTED chlamydia DNA probe NOT DETECTED NOT DETECTED chlamydia DNA probe DETECTED NOT DETECTED Lab Report: Chlamydia/GC APTIMA/77661 - Microbiology Neisseria gonorrhoeae DNA probe NOT DETECTED NOT DETECTED Neisseria gonorrhoeae DNA probe NOT DETECTED NOT DETECTED Neisseria gonorrhoeae DNA probe NOT DETECTED NOT DETECTED Lab Report: Chlamydia/GC APTIMA/50883, HEPATITIS B S AG W/, HIV-1/2 Agn/ ... - Chemistry hepatitis B surface antigen NON-REACTIVE NON-REACTIVE Lab Report: Chlamydia/GC APTIMA/24317, HEPATITIS B S AG W/, HIV-1/2 Agn/ ... - Lab chlamydia DNA probe NOT DETECTED NOT DETECTED Lab Report: Chlamydia/GC APTIMA/70560, HEPATITIS B S AG W/, HIV-1/2 Agn/ ... - Microbiology Neisseria gonorrhoeae DNA probe NOT DETECTED NOT DETECTED Lab Report: Chlamydia/GC APTIMA/17318, HEPATITIS B S AG W/, HIV-1/2 Agn/ [...] pH, urine, semiquantitative 7.0 5.0-8.5 Lab Report: [facility] [place] - Chemistry human chorionic [...] N Encounters Code Encounter Date Provider Facility CPT-00961 Level 3 Est. Patient 13:55:16 BRISTLE MACHINE OPERATOR Rian Ortega MD [facility] CPT-10353 Level 3 Est. Patient 10:42:52 CDT Corrina Bailon APRN [facility] CPT-69215 Level 3 Est. Patient 11:18:30 CDT Aris Charlton MD [facility] Procedures Code Procedure Name Date Entry Date Standard Description CPT-J0702 Celestone 6 mg (Betamethasone) 15:04:45 BRISTLE MACHINE OPERATOR CPT-37515 Abx/Therapy Injection 15:04:45 BRISTLE MACHINE OPERATOR CPT-J0702 Celestone 12 mg (Betamethasone) 11:45:31 BRISTLE MACHINE OPERATOR CPT-65775 Visit 11:39:52 BRISTLE MACHINE OPERATOR CPT-93069Z Sono biophysical pro wo stress test-[place] Only 11:21: 42 BRISTLE MACHINE OPERATOR CPT-13743 Visit 16:00:50 BRISTLE MACHINE OPERATOR CPT-82788V Sono biophysical pro wo stress test-[place] Only 13:12: 18 BRISTLE MACHINE OPERATOR CPT-40951 Sono biophysical pro wo stress test 11:17:21 BRISTLE MACHINE OPERATOR 05/21 CPT-39559 Tdap 7yrs or > 15:22:51 BRISTLE MACHINE OPERATOR CPT-29693 Immunization Single Admin 15:22:51 BRISTLE MACHINE OPERATOR CPT-94311 Tdap 7yrs or > 15:09:13 BRISTLE MACHINE OPERATOR CPT-93589 Visit 14:54:16 BRISTLE MACHINE OPERATOR CPT-89775 Fluzone Quadrivalent Intramuscular Suspension 0.5 ML 16: 58:58 CDT CPT-03228 Administration single or combination vaccine inc oral 16 :58:58 CDT CPT-28236 Fluzone Thim Free 36mo and older 14:47:39 CDT CPT-36357 Visit 14:47:39 CDT CPT-13806 Sono OB limited 10:30:07 CDT CPT-48137 Visit 10:04:44 CDT CPT-11258 Sono OB comp > 14 weeks 12:50:41 CDT CPT-95376 Visit 12:06:25 CDT CPT-67846 Visit 12:43:15 CDT CPT-65681 Visit 10:06:02 CDT CPT-41350 Spec Collection and Handling Fee 10:00:31 CDT CPT-64095 Visit 10:00:30 CDT CPT-03239 Drug Screen [place] 14:36:13 CDT
--- OUTSIDE RECORDS SUMMARY | 2018-08-28 07:01 | XMS REPORT | Clinical Summary ---
Author Author Admin, Britni Organization [facility] [email or web address] Address Unknown Phone Unavailable Allergies, Adverse Reactions, [...] day to help quit smoking VARENICLINE TARTRATE 66182646862 Active Rian Ortega MD Active CHANTIX STARTING MONTH DANILO 0.5 MG X 11 & 1 MG X 42 TABS take as directed 2015 VARENICLINE TARTRATE 08302852621 Active Rian Ortega MD Active CLINDAMYCIN HCL 150 MG CAPS 1 four times a day for 1 week CLINDAMYCIN HCL 75670165797 No Longer Active Karen Jaramillo MD Active TRIAMCINOLONE ACETONIDE 0.1 % CREA Apply to affected areas TID for up to 1 week TRIAMCINOLONE ACETONIDE 24305215901 No Longer Active Rian Ortega MD Active ZITHROMAX 1 GM ORAL PACK Take 1 time and recheck lab in 2-3 weeks AZITHROMYCIN 65415567014 No Longer Active Rian Ortega MD Active PNV PLUS MULTIVITAMIN 27-1 MG ORAL TABS 1 daily VIT-FE FUMARATE-FA 73783324051 Active Aris Charlton MD Active FLAGYL 500 MG TAB four tabs PO x 1 METRONIDAZOLE 66442733052 No Longer Active Aris Charlton MD Active FLAGYL 500 MG TAB four tabs PO x 1 FLAGYL 500 MG TAB 862051 METRONIDAZOLE Inactive ZITHROMAX 1 GM ORAL PACK Take 1 time and recheck lab in 2-3 weeks ZITHROMAX 1 GM ORAL PACK 985906 AZITHROMYCIN Inactive TRIAMCINOLONE ACETONIDE 0.1 % CREA Apply to affected areas TID for up to 1 week TRIAMCINOLONE ACETONIDE 0.1 % CREA 5217057 TRIAMCINOLONE ACETONIDE Inactive CLINDAMYCIN HCL 150 MG CAPS 1 four times a day for 1 week CLINDAMYCIN HCL 150 MG CAPS 868611 CLINDAMYCIN HCL Inactive Immunizations Vaccine Administration Date [...] % 11.0-15.0 platelet count 307 THOUSAND/UL 10*3/mm3 112-096 0514/05/26 mean platelet volume 8.9 fL 7.5-11.5 Blood [...] ... - Chemistry sodium, serum 137 mmol/L 065-338 8972/08/28 potassium, serum 4.3 mmol/L 3.5-5.2 chloride, serum [...] 302 10^3/MM^3 10*3/mm3 142-424 Lab Report: Chlamydia/GC APTIMA/63679 - Lab chlamydia DNA probe NOT DETECTED NOT DETECTED chlamydia DNA probe NOT DETECTED NOT DETECTED chlamydia DNA probe DETECTED NOT DETECTED Lab Report: Chlamydia/GC APTIMA/29590 - Microbiology Neisseria gonorrhoeae DNA probe NOT DETECTED NOT DETECTED Neisseria gonorrhoeae DNA probe NOT DETECTED NOT DETECTED Neisseria gonorrhoeae DNA probe NOT DETECTED NOT DETECTED Lab Report: Chlamydia/GC APTIMA/10745, HEPATITIS B S AG W/, HIV-1/2 Agn/ ... - Chemistry hepatitis B surface antigen NON-REACTIVE NON-REACTIVE Lab Report: Chlamydia/GC APTIMA/85060, HEPATITIS B S AG W/, HIV-1/2 Agn/ ... - Lab chlamydia DNA probe NOT DETECTED NOT DETECTED Lab Report: Chlamydia/GC APTIMA/24834, HEPATITIS B S AG W/, HIV-1/2 Agn/ ... - Microbiology Neisseria gonorrhoeae DNA probe NOT DETECTED NOT DETECTED Lab Report: Chlamydia/GC APTIMA/96877, HEPATITIS B S AG W/, HIV-1/2 Agn/ [...] pH, urine, semiquantitative 7.0 5.0-8.5 Lab Report: [facility] [place] - Chemistry human chorionic [...] N Encounters Code Encounter Date Provider Facility CPT-01121 Level 3 Est. Patient 13:55:16 GREEN WARE CASTER Rian Ortega MD [facility] CPT-15110 Level 3 Est. Patient 10:42:52 CDT Corrina Bailon APRN [facility] CPT-59340 Level 3 Est. Patient 11:18:30 CDT Aris Charlton MD [facility] Procedures Code Procedure Name Date Entry Date Standard Description CPT-J0702 Celestone 6 mg (Betamethasone) 15:04:45 GREEN WARE CASTER CPT-30387 Abx/Therapy Injection 15:04:45 GREEN WARE CASTER CPT-J0702 Celestone 12 mg (Betamethasone) 11:45:31 GREEN WARE CASTER CPT-34476 Visit 11:39:52 GREEN WARE CASTER CPT-97474I Sono biophysical pro wo stress test-[facility] 11:21: 42 GREEN WARE CASTER CPT-76921 Visit 16:00:50 GREEN WARE CASTER CPT-75003B Sono biophysical pro wo stress test-[facility] 13:12: 18 GREEN WARE CASTER CPT-82386 Sono biophysical pro wo stress test 11:17:21 GREEN WARE CASTER 05/21 CPT-43472 Tdap 7yrs or > 15:22:51 GREEN WARE CASTER CPT-99371 Immunization Single Admin 15:22:51 GREEN WARE CASTER CPT-32301 Tdap 7yrs or > 15:09:13 GREEN WARE CASTER CPT-29717 Visit 14:54:16 GREEN WARE CASTER CPT-61030 Fluzone Quadrivalent Intramuscular Suspension 0.5 ML 16: 58:58 CDT CPT-12495 Administration single or combination vaccine inc oral 16 :58:58 CDT CPT-48236 Fluzone Thim Free 36mo and older 14:47:39 CDT CPT-98619 Visit 14:47:39 CDT CPT-90171 Sono OB limited 10:30:07 CDT CPT-40155 Visit 10:04:44 CDT CPT-99405 Sono OB comp > 14 weeks 12:50:41 CDT CPT-33737 Visit 12:06:25 CDT CPT-33918 Visit 12:43:15 CDT CPT-12998 Visit 10:06:02 CDT CPT-62296 Spec Collection and Handling Fee 10:00:31 CDT CPT-22374 Visit 10:00:30 CDT CPT-20900 Drug Screen Grisel 14:36:13 CDT
--- OUTSIDE RECORDS SUMMARY | 2018-08-28 07:02 | XMS REPORT | Clinical Summary ---
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 Active Sasha Espitia APRN Routine gynecological examination Bariatric operative procedure V45.86 Active Mariely Faux RMA Bariatric surgery status Physical examination V70.0 Active aSsha Espitia APRN Routine general medical examination at [...] day for bladder infection 07/24 CIPROFLOXACIN HCL 30807498240 Active Nereyda Rodriguez APRN Active AZO TABS TABS 2 tabs qd PHENAZOPYRIDINE HCL TABS 86978363677 Active Nereyda Rodriguez APRN Active SM VITAMIN B12 TR 1000 MCG ORAL CR-TABS 1 tab po daily CYANOCOBALAMIN 03020215966 No Longer Active Nereyda Rodriguez APRN Active CARAFATE 1 GM TAB 1 tab po as needed up to 4 times per day SUCRALFATE 17360114648 No Longer Active Nereyda Rodriguez APRN Active PNV PLUS MULTIVITAMIN 27-1 MG ORAL TABS 1 daily VIT-FE FUMARATE-FA 74174562208 No Longer Active Sasha Espitia APRN Active CHANTIX STARTING MONTH DANILO 0.5 MG X 11 & 1 MG X 42 TABS take as directed 2015 VARENICLINE TARTRATE 20001190519 No Longer Active Sasha Espitia APRN Active CHANTIX 1 MG TABS 1 twice a day to help quit smoking VARENICLINE TARTRATE 56354845143 No Longer Active Sasha Espitia APRN Active OMEPRAZOLE 20 MG CPDR 1 tablet by mouth daily OMEPRAZOLE 62459675959 Active Sasha Espitia APRN Active FLINSTONES GUMMIES OMEGA-3 DHA ORAL CHEW 2 gummies per day PEDIATRIC MULTIPLE VIT-C-FA 75104183508 Active Sasha Espitia APRN Active CLINDAMYCIN HCL 150 MG CAPS 1 four times a day for 1 week CLINDAMYCIN HCL 60962409692 No Longer Active Karen Jaramillo MD Active TRIAMCINOLONE ACETONIDE 0.1 % CREA Apply to affected areas TID for up to 1 week TRIAMCINOLONE ACETONIDE 91622370199 No Longer Active Rian Ortega MD Active ZITHROMAX 1 GM ORAL PACK Take 1 time and recheck lab in 2-3 weeks AZITHROMYCIN 33613740720 No Longer Active Rian Ortega MD Active FLAGYL 500 MG TAB four tabs PO x 1 METRONIDAZOLE 42134272026 No Longer Active Aris Charlton MD Active FLAGYL 500 MG TAB four tabs PO x 1 FLAGYL 500 MG TAB 994746 METRONIDAZOLE Inactive ZITHROMAX 1 GM ORAL PACK Take 1 time and recheck lab in 2-3 weeks ZITHROMAX 1 GM ORAL PACK 167796 AZITHROMYCIN Inactive TRIAMCINOLONE ACETONIDE 0.1 % CREA Apply to affected areas TID for up to 1 week TRIAMCINOLONE ACETONIDE 0.1 % CREA 1038518 TRIAMCINOLONE ACETONIDE Inactive CLINDAMYCIN HCL 150 MG CAPS 1 four times a day for 1 week CLINDAMYCIN HCL 150 MG CAPS 430453 CLINDAMYCIN HCL Inactive CHANTIX 1 MG TABS [...] per day 06/27 CARAFATE 1 GM TAB 514966 SUCRALFATE Inactive SM VITAMIN B12 TR 1000 [...] HGBA1C - Chemistry sodium, serum 142 mmol/L 304-695 0800 carbon dioxide, venous blood 32.8 mmol/L 21.0-32.0 [...] Panel - Chemistry cholesterol, serum 165 mg/dL 029-929 7098 triglyceride, serum, fasting 124 mg/dL 30-200 HDL [...] 30-100 Encounters Code Encounter Date Provider Facility CPT-69353 Level 3 Est. Patient 11:16:27 PROCESS ARCHITECT Nereyda Rodriguez [facility] CPT-37310 Level 4 Est. Patient 08:56:42 PROCESS ARCHITECT Sasha Espitia [facility] CPT-98194 Level 3 Est. Patient 16:40:58 CDT Rian Ortega MD [facility] CPT-94394 Level 3 Est. Patient 13:55:16 PROCESS ARCHITECT Rian Ortega MD [facility] CPT-73969 Level 3 Est. Patient 10:42:52 CDT [facility] CPT-81142 Level 3 Est. Patient 11:18:30 CDT Aris Charlton MD [facility] Procedures Code Procedure Name Date Entry Date Standard Description CPT-92579 UA w micro - LAB USE ONLY 13:09:18 PROCESS ARCHITECT CPT-35105 Urine Culture - LAB USE ONLY 13:09:18 PROCESS ARCHITECT CPT-55755 Wet Mount - LAB USE ONLY 11:11:39 PROCESS ARCHITECT CPT-60601 Lipid - LAB USE ONLY 15:05:24 PROCESS ARCHITECT CPT-85525 PT/INR - LAB USE ONLY 12:14:07 CDT CPT-87171 HGBA1C - LAB USE ONLY 12:14:07 CDT CPT-08518 CMP - LAB USE ONLY 12:14:07 CDT CPT-87573 CBC - LAB USE ONLY 12:14:07 CDT CPT-50678 Venipuncture Draw Fee 12:14:06 CDT CPT-J0702 Celestone 6 mg (Betamethasone) 15:04:45 PROCESS ARCHITECT CPT-26409 Abx/Therapy Injection 15:04:45 PROCESS ARCHITECT CPT-J0702 Celestone 12 mg (Betamethasone) 11:45:31 PROCESS ARCHITECT CPT-82760 Visit 11:39:52 PROCESS ARCHITECT CPT-81843R Sono biophysical pro wo stress test-[facility] 11:21: 42 PROCESS ARCHITECT CPT-70350 Visit 16:00:50 PROCESS ARCHITECT CPT-09692R Sono biophysical pro wo stress test-[facility] 13:12: 18 PROCESS ARCHITECT CPT-95499 Sono biophysical pro wo stress test 11:17:21 PROCESS ARCHITECT 05/21 CPT-99838 Tdap 7yrs or > 15:22:51 PROCESS ARCHITECT CPT-91305 Immunization Single Admin 15:22:51 PROCESS ARCHITECT CPT-07357 Tdap 7yrs or > 15:09:13 PROCESS ARCHITECT CPT-08010 Visit 14:54:16 PROCESS ARCHITECT CPT-59336 Fluzone Quadrivalent Intramuscular Suspension 0.5 ML 16: 58:58 CDT CPT-10059 Administration single or combination vaccine inc oral 16 :58:58 CDT CPT-07110 Fluzone Thim Free 36mo and older 14:47:39 CDT CPT-56955 Visit 14:47:39 CDT CPT-77133 Sono OB limited 10:30:07 CDT CPT-56457 Visit 10:04:44 CDT CPT-45240 Sono OB comp > 14 weeks 12:50:41 CDT CPT-23460 Visit 12:06:25 CDT CPT-24482 Visit 12:43:15 CDT CPT-30378 Visit 10:06:02 CDT CPT-99116 Spec Collection and Handling Fee 10:00:31 CDT CPT-03352 Visit 10:00:30 CDT CPT-92788 Drug Screen Grisel 14:36:13 CDT
--- OUTSIDE RECORDS SUMMARY | 2018-08-28 07:02 | XMS REPORT | Clinical Summary ---
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 Sasha [...] Status Provider Patient Instruction GUAIFENESIN 600 MG [id number] 1 twice a day as needed for congestion GUAIFENESIN 88813858623 No Longer Active Sasha Espitia APRN Active CYCLOBENZAPRINE HCL 10 MG TABS 1 three times a day as needed for muscle spasm CYCLOBENZAPRINE HCL 91731816741 No Longer Active Sasha Espitia APRN Active SYMBICORT 160-4.5 MCG/ACT AERO 2 puff BID for 10 days BUDESONIDE-FORMOTEROL FUMARATE 88622454064 No Longer Active Rian Ortega MD Active AZITHROMYCIN 250 MG TABS 2 po qd x 1 day, then 1 po qd x 4 days AZITHROMYCIN 36339508229 No Longer Active Carline Best APRN Active CIPRO 500 MG TAB 1 tablet by mouth twice daily CIPROFLOXACIN HCL 59835069390 No Longer Active Tariq Marrero MD Active AZO TABS TABS 2 tabs qd PHENAZOPYRIDINE HCL TABS 76592949292 No Longer Active Tariq Marrero MD Active CIPROFLOXACIN HCL 250 MG ORAL TABS 1 twice a day for bladder infection 07/24 CIPROFLOXACIN HCL 10044656437 No Longer Active Tariq Marrero MD Active SM VITAMIN B12 TR 1000 MCG ORAL CR-TABS 1 tab po daily CYANOCOBALAMIN 31984844783 No Longer Active Nereyda Rodriguez APRN Active CARAFATE 1 GM TAB 1 tab po as needed up to 4 times per day SUCRALFATE 13446544421 No Longer Active Nereyda Rodriguez APRN Active PNV PLUS MULTIVITAMIN 27-1 MG ORAL TABS 1 daily VIT-FE FUMARATE-FA 00511487115 No Longer Active Sasha Espitia APRN Active CHANTIX STARTING MONTH DANILO 0.5 MG X 11 & 1 MG X 42 TABS take as directed 2015 VARENICLINE TARTRATE 79208724056 No Longer Active Sasha Espitia APRN Active CHANTIX 1 MG TABS 1 twice a day to help quit smoking VARENICLINE TARTRATE 87494712198 No Longer Active Sasha Espitia APRN Active OMEPRAZOLE 20 MG CPDR 1 tablet by mouth daily OMEPRAZOLE 92448250887 Active Sasha Espitia APRN Active FLINSTONES GUMMIES OMEGA-3 DHA ORAL CHEW 2 gummies per day PEDIATRIC MULTIPLE VIT-C-FA 85781658867 Active Sasha Espitia APRN Active CLINDAMYCIN HCL 150 MG CAPS 1 four times a day for 1 week CLINDAMYCIN HCL 24428306619 No Longer Active Karen Jaramillo MD Active TRIAMCINOLONE ACETONIDE 0.1 % CREA Apply to affected areas TID for up to 1 week TRIAMCINOLONE ACETONIDE 48966810345 No Longer Active Rian Ortega MD Active ZITHROMAX 1 GM ORAL PACK Take 1 time and recheck lab in 2-3 weeks AZITHROMYCIN 96718507098 No Longer Active Rian Ortega MD Active FLAGYL 500 MG TAB four tabs PO x 1 METRONIDAZOLE 37068981923 No Longer Active Aris Charlton MD Active FLAGYL 500 MG TAB four tabs PO x 1 FLAGYL 500 MG TAB 506923 METRONIDAZOLE Inactive ZITHROMAX 1 GM ORAL PACK Take 1 time and recheck lab in 2-3 weeks ZITHROMAX 1 GM ORAL PACK 695465 AZITHROMYCIN Inactive TRIAMCINOLONE ACETONIDE 0.1 % CREA Apply to affected areas TID for up to 1 week TRIAMCINOLONE ACETONIDE 0.1 % CREA 8551107 TRIAMCINOLONE ACETONIDE Inactive CLINDAMYCIN HCL 150 MG CAPS 1 four times a day for 1 week CLINDAMYCIN HCL 150 MG CAPS 928591 CLINDAMYCIN HCL Inactive CHANTIX 1 MG TABS [...] per day 06/27 CARAFATE 1 GM TAB 191305 SUCRALFATE Inactive SM VITAMIN B12 TR 1000 MCG ORAL CR-TABS 1 tab po daily SM VITAMIN B12 TR 1000 MCG ORAL CR-TABS CYANOCOBALAMIN Inactive CIPROFLOXACIN HCL 250 MG ORAL TABS 1 twice a day for bladder infection 07/24 CIPROFLOXACIN HCL 250 MG ORAL TABS 628754 CIPROFLOXACIN HCL Inactive AZO TABS TABS 2 tabs qd AZO TABS TABS PHENAZOPYRIDINE HCL TABS Inactive SYMBICORT 160-4.5 MCG/ACT AERO 2 puff BID for 10 days SYMBICORT 160-4.5 MCG/ACT AERO BUDESONIDE-FORMOTEROL FUMARATE Inactive CYCLOBENZAPRINE HCL 10 MG TABS 1 three times a day as needed for muscle spasm CYCLOBENZAPRINE HCL 10 MG TABS 746399 CYCLOBENZAPRINE HCL Inactive GUAIFENESIN 600 MG [id number] 1 twice a day as needed for congestion GUAIFENESIN 600 MG [id number] GUAIFENESIN Inactive CIPRO 500 MG TAB 1 tablet by mouth twice daily CIPRO 500 MG TAB 271132 CIPROFLOXACIN HCL Inactive AZITHROMYCIN 250 MG TABS 2 po qd x 1 day, then 1 po qd x 4 days AZITHROMYCIN 250 MG TABS 431886 AZITHROMYCIN Inactive Immunizations Vaccine Administration Date Value [...] HGBA1C - Chemistry sodium, serum 142 mmol/L [phone] carbon dioxide, venous blood 32.8 mmol/L 21.0-32.0 [...] ... - Chemistry cholesterol, serum 142 mg/dL 995-370 6569/10/24 triglyceride, serum, fasting 77 mg/dL 30-200 HDL [...] Lab Report: Comp. Metabolic Panel - Chemistry calcium, serum 8.4 mg/dL 8.5-10.1 bilirubin, serum, total 0.60 mg/dL 0.00-1.00 sodium, serum 137 mmol/L 725-040 9895/10/24 carbon dioxide, venous blood 24.4 mmol/L 21.0-32.0 potassium, serum 4.7 mmol/L 3.5-5.2 chloride, serum 104 mmol/L 98-107 blood glucose 85 mg/dL 65-110 urea nitrogen, blood 11 mg/dL 7-18 creatinine, serum 0.82 mg/dL 0.60-1.30 alanine aminotransferase (SGPT), serum 29 U/L 12-78 aspartate aminotransferase (SGOT), serum 16 U/L 15-37 Lab Report: Lipid Panel - Chemistry cholesterol, serum 165 mg/dL [phone] triglyceride, serum, fasting 124 mg/dL 30-200 HDL [...] AUTO - Urinalysis urine color Yellow Colorless;Lightyellow;Straw;Yellow specific gravity, urine >=1.030 1.000-1.030 pH, urine, semiquantitative 5.5 5.0-8.5 urobilinogen, urine, semiquantitative (dipstick) 0.2 Normal leukocyte esterase, urine, by dipstick Trace Negative nitrite, urine, semiquantitative Negative Negative appearance, urine Clear Clear glucose, urine, semiquantitative Negative Negative ketones, urine, by test strip Trace Negative bilirubin, urine Negative Negative Lab Report: VITAMIN B12/FOLATE, SERUM PANE, FERRITIN, VITAMIN D, 25-HYDR ... - Chemistry vitamin D 25-hydroxy, serum 32 ng/mL 30-100 Encounters Code Encounter Date Provider Facility CPT-44182 Level 3 Est. Patient 11:54:40 CDT Rian Ortega MD [facility] CPT-69886 Level 3 Est. Patient 11:17:51 CDT Carline Best [facility] CPT-83947 Level 3 Est. Patient 15:43:38 CDT Tariq Marrero MD [facility] CPT-46638 Level 3 Est. Patient 11:16:27 CASH APPLICATION REPRESENTATIVE Nereyda Rodriguez [facility] CPT-61822 Level 4 Est. Patient 08:56:42 CASH APPLICATION REPRESENTATIVE Sasha Espitia [facility] CPT-10336 Level 3 Est. Patient 16:40:58 CDT Rian Ortega MD [facility] CPT-43806 Level 3 Est. Patient 13:55:16 CASH APPLICATION REPRESENTATIVE Rian Ortega MD [facility] CPT-01375 Level 3 Est. Patient 10:42:52 CDT Corrina Bailon [facility] CPT-11305 Level 3 Est. Patient 11:18:30 CDT Aris Charlton MD [facility] Procedures Code Procedure Name Date Entry Date Standard Description CPT-93539 UA w micro - LAB USE ONLY 13:09:18 CASH APPLICATION REPRESENTATIVE CPT-64154 Urine Culture - LAB USE ONLY 13:09:18 CASH APPLICATION REPRESENTATIVE CPT-11866 Wet Mount - LAB USE ONLY 11:11:39 CASH APPLICATION REPRESENTATIVE CPT-85646 Lipid - LAB USE ONLY 15:05:24 CASH APPLICATION REPRESENTATIVE CPT-14927 PT/INR - LAB USE ONLY 12:14:07 CDT CPT-03750 HGBA1C - LAB USE ONLY 12:14:07 CDT CPT-50934 CMP - LAB USE ONLY 12:14:07 CDT CPT-32429 CBC - LAB USE ONLY 12:14:07 CDT CPT-00330 Venipuncture Draw Fee 12:14:06 CDT CPT-J0702 Celestone 6 mg (Betamethasone) 15:04:45 CASH APPLICATION REPRESENTATIVE CPT-90587 Abx/Therapy Injection 15:04:45 CASH APPLICATION REPRESENTATIVE CPT-J0702 Celestone 12 mg (Betamethasone) 11:45:31 CASH APPLICATION REPRESENTATIVE CPT-55149 Visit 11:39:52 CASH APPLICATION REPRESENTATIVE CPT-65443N Sono biophysical pro wo stress test-[place] Only 11:21: 42 CASH APPLICATION REPRESENTATIVE CPT-12674 Visit 16:00:50 CASH APPLICATION REPRESENTATIVE CPT-46247F Sono biophysical pro wo stress test-[place] Only 13:12: 18 CASH APPLICATION REPRESENTATIVE CPT-31172 Sono biophysical pro wo stress test 11:17:21 CASH APPLICATION REPRESENTATIVE 05/21 CPT-76432 Tdap 7yrs or > 15:22:51 CASH APPLICATION REPRESENTATIVE CPT-30802 Immunization Single Admin 15:22:51 CASH APPLICATION REPRESENTATIVE CPT-23601 Tdap 7yrs or > 15:09:13 CASH APPLICATION REPRESENTATIVE CPT-09455 Visit 14:54:16 CASH APPLICATION REPRESENTATIVE CPT-08455 Fluzone Quadrivalent Intramuscular Suspension 0.5 ML 16: 58:58 CDT CPT-38621 Administration single or combination vaccine inc oral 16 :58:58 CDT CPT-60462 Fluzone Thim Free 36mo and older 14:47:39 CDT CPT-57485 Visit 14:47:39 CDT CPT-94711 Sono OB limited 10:30:07 CDT CPT-30801 Visit 10:04:44 CDT CPT-94215 Sono OB comp > 14 weeks 12:50:41 CDT CPT-19844 Visit 12:06:25 CDT CPT-86475 Visit 12:43:15 CDT CPT-22330 Visit 10:06:02 CDT CPT-20264 Spec Collection and Handling Fee 10:00:31 CDT CPT-26897 Visit 10:00:30 CDT CPT-27212 Drug Screen [place] 14:36:13 CDT
--- OUTSIDE RECORDS SUMMARY | 2018-08-28 07:02 | XMS REPORT | Clinical Summary ---
Author Author Admin, E Organization [facility] Address Unknown Phone Unavailable Allergies, [...] TAB four tabs PO x 1 METRONIDAZOLE 12899997926 Active Karen Jaramillo MD Active Immunizations Vaccine [...] % 11.0-15.0 platelet count 307 THOUSAND/UL 10*3/mm3 577-925 1089/05/26 mean platelet volume 8.9 fL 7.5-11.5 Blood [...] BHCG - Chemistry TSH 2.31 m[iU]/mL 0.36-3.74 Office Visit: Initial OB Visit - Chemistry protein, total urine random UC mg/dL Office Visit: Initial OB Visit - Genetics/fertility test, date 10/24/2014 Office Visit: Initial OB Visit - Microbiology Herpes Simplex Virus Genital no Office Visit: Initial OB Visit - Urinalysis glucose, urine, semiquantitative UC nitrite, urine, semiquantitative UC Procedures Code Procedure Name Date Entry Date Standard Description CPT-63253 Spec Collection and Handling Fee 10:00:31 CDT CPT-14118 Visit 10:00:30 CDT CPT-70149 Drug Screen [place] 14:36:13 CDT
--- OUTSIDE RECORDS SUMMARY | 2018-08-28 07:02 | XMS REPORT | Clinical Summary ---
Author Author Admin, [facility] Organization [facility] Address [...] TAB four tabs PO x 1 METRONIDAZOLE 51320226620 Active Karen Jaramillo MD Active Diagnostic Results [...] % 11.0-15.0 platelet count 307 THOUSAND/UL 10*3/mm3 501-050 5551/05/26 mean platelet volume 8.9 fL 7.5-11.5 Lab [...] Procedure Name Date Entry Date Standard Description CPT-08457 Spec Collection and Handling Fee 10:00:31 CDT CPT-26463 Visit 10:00:30 CDT CPT-06077 Drug Screen [place] 14:36:13 CDT
--- OUTSIDE RECORDS SUMMARY | 2018-08-28 07:03 | XMS REPORT | Clinical Summary ---
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 well woman exam V72.31 Active Sasha [...] 18 weeks gestation of ICD-V28.9 Inactive Karen Jaraimllo MD Obesity complicating , second trimester ICD-649.13 [...] then 1 daily for 4 days AZITHROMYCIN 10129014259 No Longer Active Mahsa Alvarez Active AZITHROMYCIN 250 MG ORAL TABLET 2 po qd x 1 day, then 1 po qd x 4 days 07/27 AZITHROMYCIN 85960450654 No Longer Active Carline Best APRN Active GUAIFENESIN ER 600 MG ORAL TABLET EXTENDED RELEASE 12 HOUR 1 twice a day as needed for congestion GUAIFENESIN 09873491548 No Longer Active Sasha Tan APRN Active CYCLOBENZAPRINE HCL 10 MG ORAL TABLET 1 three times a day as needed for muscle spasm CYCLOBENZAPRINE HCL 49872301741 No Longer Active Sasha Tan APRN Active SYMBICORT 160-4.5 MCG/ACT INHALATION AEROSOL 2 puff BID for 10 days BUDESONIDE-FORMOTEROL FUMARATE 19739426846 No Longer Active Rian Ortega MD Active AZITHROMYCIN 250 MG ORAL TABLET 2 po qd x 1 day, then 1 po qd x 4 days 02/15 AZITHROMYCIN 09086996333 No Longer Active Carline Best APRN Active CIPRO 500 MG ORAL TABLET 1 tablet by mouth twice daily CIPROFLOXACIN HCL 81374718270 No Longer Active Tariq Marrero MD Active AZO TABS TABLET 2 tabs qd PHENAZOPYRIDINE HCL TABS 79010273057 No Longer Active Tariq Marrero MD Active CIPROFLOXACIN HCL 250 MG ORAL TABLET 1 twice a day for bladder infection 2016 CIPROFLOXACIN HCL 45460827046 No Longer Active Tariq Marrero MD Active SM VITAMIN B12 TR 1000 MCG ORAL TABLET EXTENDED RELEASE 1 tab po daily 04/24 CYANOCOBALAMIN 02768739725 No Longer Active Nereyda Rodriguez APRN Active CARAFATE 1 GM ORAL TABLET 1 tab po as needed up to 4 times per day SUCRALFATE 05285324837 No Longer Active Nereyda Rodriguez APRN Active PNV PLUS MULTIVITAMIN 27-1 MG ORAL TABLET 1 daily 04/24 VIT-FE FUMARATE-FA 15370173188 No Longer Active Sasha Tan APRN Active CHANTIX STARTING MONTH DANILO 0.5 MG X 11 & 1 MG X 42 ORAL TABLET take as directed VARENICLINE TARTRATE 03791550656 No Longer Active Sasha Tan APRN Active CHANTIX 1 MG ORAL TABLET 1 twice a day to help quit smoking 04/24 VARENICLINE TARTRATE 30362071535 No Longer Active Sasha Tan APRN Active OMEPRAZOLE 20 MG ORAL CAPSULE DELAYED RELEASE 1 tablet by mouth daily OMEPRAZOLE 05437344297 Active Sasha Tan APRN Active FLINSTONES GUMMIES OMEGA-3 DHA ORAL TABLET CHEWABLE 2 gummies per day PEDIATRIC MULTIPLE VIT-C-FA 52786822520 Active Sasha Tan APRN Active CLINDAMYCIN HCL 150 MG ORAL CAPSULE 1 four times a day for 1 week CLINDAMYCIN HCL 98765024054 No Longer Active Karen Jaramillo MD Active TRIAMCINOLONE ACETONIDE 0.1 % EXTERNAL CREAM Apply to affected areas TID for up to 1 week TRIAMCINOLONE ACETONIDE 98058841919 No Longer Active Rian Ortega MD Active ZITHROMAX 1 GM ORAL PACKET Take 1 time and recheck lab in 2-3 weeks AZITHROMYCIN 75398502984 No Longer Active Rian Ortega MD Active FLAGYL 500 MG ORAL TABLET four tabs PO x 1 METRONIDAZOLE 56334711341 No Longer Active Aris Charlton MD Active FLAGYL 500 MG ORAL TABLET four tabs PO x 1 FLAGYL 500 MG ORAL TABLET 853373 METRONIDAZOLE Inactive ZITHROMAX 1 GM ORAL PACKET Take 1 time and recheck lab in 2-3 weeks ZITHROMAX 1 GM ORAL PACKET 526409 AZITHROMYCIN Inactive TRIAMCINOLONE ACETONIDE 0.1 % EXTERNAL CREAM Apply to affected areas TID for up to 1 week TRIAMCINOLONE ACETONIDE 0.1 % EXTERNAL CREAM 1877676 TRIAMCINOLONE ACETONIDE Inactive CLINDAMYCIN HCL 150 MG ORAL CAPSULE 1 four times a day for 1 week CLINDAMYCIN HCL 150 MG ORAL CAPSULE 401734 CLINDAMYCIN HCL Inactive CHANTIX 1 MG ORAL [...] per day CARAFATE 1 GM ORAL TABLET 281966 SUCRALFATE Inactive SM VITAMIN B12 TR 1000 MCG ORAL TABLET EXTENDED RELEASE 1 tab po daily 04/24 SM VITAMIN B12 TR 1000 MCG ORAL TABLET EXTENDED RELEASE CYANOCOBALAMIN Inactive CIPROFLOXACIN HCL 250 MG ORAL TABLET 1 twice a day for bladder infection 2016 CIPROFLOXACIN HCL 250 MG ORAL TABLET 567862 CIPROFLOXACIN HCL Inactive AZO TABS TABLET 2 tabs qd AZO TABS TABLET PHENAZOPYRIDINE HCL TABS Inactive SYMBICORT 160-4.5 MCG/ACT INHALATION AEROSOL 2 puff BID for 10 days SYMBICORT 160-4.5 MCG/ACT INHALATION AEROSOL BUDESONIDE- FORMOTEROL FUMARATE Inactive CYCLOBENZAPRINE HCL 10 MG ORAL TABLET 1 three times a day as needed for muscle spasm CYCLOBENZAPRINE HCL 10 MG ORAL TABLET 484482 CYCLOBENZAPRINE HCL Inactive GUAIFENESIN ER 600 MG ORAL TABLET EXTENDED RELEASE 12 HOUR 1 twice a day as needed for congestion GUAIFENESIN ER 600 MG ORAL TABLET EXTENDED RELEASE 12 HOUR GUAIFENESIN Inactive CIPRO 500 MG ORAL TABLET 1 tablet by mouth twice daily CIPRO 500 MG ORAL TABLET 510611 CIPROFLOXACIN HCL Inactive AZITHROMYCIN 250 MG ORAL TABLET 2 po qd x 1 day, then 1 po qd x 4 days 02/15 AZITHROMYCIN 250 MG ORAL TABLET 051506 AZITHROMYCIN Inactive AZITHROMYCIN 250 MG ORAL TABLET 2 po qd x 1 day, then 1 po qd x 4 days 07/27 AZITHROMYCIN 250 MG ORAL TABLET 402431 AZITHROMYCIN Inactive ZITHROMAX Z-DANILO 250 MG ORAL TABLET 2 today, then 1 daily for 4 days ZITHROMAX Z-DANILO 250 MG ORAL TABLET 902092 AZITHROMYCIN Inactive Immunizations Vaccine Administration Date Value [...] - Hematology leukocyte count, blood sent to [facility] 10^3/mm^3 10*3/mm3 4.6-10.2 Lab Report: CBC, Lipid Panel, Thyroid Stimulating Hormone (L), Free Thyr ... - Chemistry cholesterol, serum 142 mg/dL 296-225 8918/10/24 triglyceride, serum, fasting 77 mg/dL 30-200 HDL [...] Panel - Chemistry sodium, serum 137 mmol/L 660-323 6076/10/24 carbon dioxide, venous blood 24.4 mmol/L 21.0-32.0 [...] Negative;Positive Encounters Code Encounter Date Provider Facility CPT-85645 Level 3 Est. Patient 14:41:20 CDT Tariq Marrero MD [facility] CPT-49060 Level 3 Est. Patient 11:06:09 CELL OPERATION SUPERVISOR Carline eBst [facility] CPT-62179 Level 3 Est. Patient 15:59:13 CELL OPERATION SUPERVISOR Carline Best [facility] CPT-04772 Employment/ICC Exam 15:03:09 CELL OPERATION SUPERVISOR Sasha Tan [facility] CPT-31338 Level 3 Est. Patient 11:54:40 CDT Rian Ortega MD [facility] CPT-90104 Level 3 Est. Patient 11:17:51 CDT Carline Best [facility] CPT-90937 Level 3 Est. Patient 15:43:38 CDT Tariq Marrero MD [facility] CPT-08299 Level 3 Est. Patient 11:16:27 CELL OPERATION SUPERVISOR Nereyda Rodriguez [facility] CPT-22654 Level 4 Est. Patient 08:56:42 CELL OPERATION SUPERVISOR Sasha Tan [facility] CPT-64219 Level 3 Est. Patient 16:40:58 CDT Rian Ortega MD [facility] CPT-04259 Level 3 Est. Patient 13:55:16 CELL OPERATION SUPERVISOR Rian Ortega MD [facility] CPT-39690 Level 3 Est. Patient 10:42:52 CDT Corrina Bailon APRN [facility] CPT-72917 Level 3 Est. Patient 11:18:30 CDT Aris Charlton MD [facility] Procedures Code Procedure Name Date Entry Date Standard Description CPT-58746 UA w micro - LAB USE ONLY 13:09:18 CELL OPERATION SUPERVISOR CPT-92373 Urine Culture - LAB USE ONLY 13:09:18 CELL OPERATION SUPERVISOR CPT-94710 Wet Mount - LAB USE ONLY 11:11:39 CELL OPERATION SUPERVISOR CPT-45211 Lipid - LAB USE ONLY 15:05:24 CELL OPERATION SUPERVISOR CPT-94297 PT/INR - LAB USE ONLY 12:14:07 CDT CPT-36984 HGBA1C - LAB USE ONLY 12:14:07 CDT CPT-74939 CMP - LAB USE ONLY 12:14:07 CDT CPT-03539 CBC - LAB USE ONLY 12:14:07 CDT CPT-30830 Venipuncture Draw Fee 12:14:06 CDT CPT-J0702 Celestone 6 mg (Betamethasone) 15:04:45 CELL OPERATION SUPERVISOR CPT-71529 Abx/Therapy Injection 15:04:45 CELL OPERATION SUPERVISOR CPT-J0702 Celestone 12 mg (Betamethasone) 11:45:31 CELL OPERATION SUPERVISOR CPT-95697 Visit 11:39:52 CELL OPERATION SUPERVISOR CPT-55413K Sono biophysical pro wo stress test-[place] Only 11:21: 42 CELL OPERATION SUPERVISOR CPT-61377 Visit 16:00:50 CELL OPERATION SUPERVISOR CPT-64351K Sono biophysical pro wo stress test-[facility] 13:12: 18 CELL OPERATION SUPERVISOR CPT-33903 Sono biophysical pro wo stress test 11:17:21 CELL OPERATION SUPERVISOR 05/21 CPT-51051 Tdap 7yrs or > 15:22:51 CELL OPERATION SUPERVISOR CPT-13699 Immunization Single Admin 15:22:51 CELL OPERATION SUPERVISOR CPT-97868 Tdap 7yrs or > 15:09:13 CELL OPERATION SUPERVISOR CPT-93701 Visit 14:54:16 CELL OPERATION SUPERVISOR CPT-08765 Fluzone Quadrivalent Intramuscular Suspension 0.5 ML 16: 58:58 CDT CPT-40838 Administration single or combination vaccine inc oral 16 :58:58 CDT CPT-12075 Fluzone Thim Free 36mo and older 14:47:39 CDT CPT-90874 Visit 14:47:39 CDT CPT-52353 Sono OB limited 10:30:07 CDT CPT-08874 Visit 10:04:44 CDT CPT-34213 Sono OB comp > 14 weeks 12:50:41 CDT CPT-03631 Visit 12:06:25 CDT CPT-97342 Visit 12:43:15 CDT CPT-50329 Visit 10:06:02 CDT CPT-99044 Spec Collection and Handling Fee 10:00:31 CDT CPT-41124 Visit 10:00:30 CDT CPT-32980 Drug Screen Grisel 14:36:13 CDT
--- OUTSIDE RECORDS SUMMARY | 2018-08-28 07:03 | XMS REPORT | Clinical Summary ---
Author Author Admin, E Organization [facility] Address Unknown Phone Unavailable Allergies, Adverse Reactions, Alerts Allergy Name Reaction Description Start Date Severity Status Provider No Known Allergies [facility] Conditions or Problems Problem Name Problem Code [...] and recheck lab in 2-3 weeks AZITHROMYCIN 21522164006 Active Carolina Mayfield LPN Active TRIAMCINOLONE ACETONIDE 0.1 % CREA Apply to affected areas TID for up to 1 week TRIAMCINOLONE ACETONIDE 23165272666 Active Aris Charlton MD Active PNV PLUS MULTIVITAMIN 27-1 MG ORAL TABS 1 daily VIT-FE FUMARATE-FA 68175657661 Active Aris Charlton MD Active FLAGYL 500 MG TAB four tabs PO x 1 METRONIDAZOLE 14820033110 No Longer Active Aris Charlton MD Active FLAGYL 500 MG TAB four tabs PO x 1 FLAGYL 500 MG TAB 931680 METRONIDAZOLE Inactive Immunizations Vaccine Administration Date Value [...] % 11.0-15.0 platelet count 307 THOUSAND/UL 10*3/mm3 022-510 9417/05/26 mean platelet volume 8.9 fL 7.5-11.5 Blood [...] antibody, serum, IgG 2.66 Lab Report: Chlamydia/GC APTIMA/02481 - Lab chlamydia DNA probe DETECTED NOT DETECTED Lab Report: Chlamydia/GC APTIMA/10047 - Microbiology Neisseria gonorrhoeae DNA probe NOT DETECTED NOT DETECTED Lab Report: HGBA1C - Chemistry hemoglobin A1C, blood, as % of total hemoglobin 5.3 % 4.3-6.0 Lab Report: Thyroid Stimulating Hormone (L), [facility] TSH 2.31 m[iU]/mL 0.36-3.74 Lab Report: [facility] [place] [facility] Encounters Code Encounter Date Provider Facility CPT-81695 Level 3 Est. Patient 10:42:52 CDT Corrina Bailon APRN [facility] CPT-31235 Level 3 Est. Patient 11:18:30 CDT Aris Charlton MD [facility] Procedures Code Procedure Name Date Entry Date Standard Description CPT-14078 Spec Collection and Handling Fee 10:00:31 CDT CPT-94069 Visit 10:00:30 CDT CPT-65131 Drug Screen Grisel 14:36:13 CDT
--- OUTSIDE RECORDS SUMMARY | 2018-08-28 07:04 | XMS REPORT | Clinical Summary ---
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 V72.31 Active Sasha Espitia [...] MG ORAL TABS 1 daily VIT-FE FUMARATE-FA 57585004368 No Longer Active Sasha Espitia APRN Active CHANTIX STARTING MONTH DANILO 0.5 MG X 11 & 1 MG X 42 TABS take as directed 2015 VARENICLINE TARTRATE 93762083124 No Longer Active Sasha Espitia APRN Active CHANTIX 1 MG TABS 1 twice a day to help quit smoking VARENICLINE TARTRATE 56234350559 No Longer Active Sashashante Espitia APRN Active OMEPRAZOLE 20 MG CPDR 1 tablet by mouth daily OMEPRAZOLE 05139661037 Active Sasha Omkar PÉREZ Active CARAFATE 1 GM TAB 1 tab po as needed up to 4 times per day SUCRALFATE 35357792877 Active Sashashante Espitia APRN Active FLINSTONES GUMMIES OMEGA-3 DHA ORAL CHEW 2 gummies per day PEDIATRIC MULTIPLE VIT-C-FA 88601590677 Active Sasha Omkar PÉREZ Active SM VITAMIN B12 TR 1000 MCG ORAL CR-TABS 1 tab po daily CYANOCOBALAMIN 17227101463 Active Sashashante Espitia APRN Active CLINDAMYCIN HCL 150 MG CAPS 1 four times a day for 1 week CLINDAMYCIN HCL 36893850798 No Longer Active Karen Jaramillo MD Active TRIAMCINOLONE ACETONIDE 0.1 % CREA Apply to affected areas TID for up to 1 week TRIAMCINOLONE ACETONIDE 35399330552 No Longer Active Rian Ortega MD Active ZITHROMAX 1 GM ORAL PACK Take 1 time and recheck lab in 2-3 weeks AZITHROMYCIN 31402109515 No Longer Active Rian Ortega MD Active FLAGYL 500 MG TAB four tabs PO x 1 METRONIDAZOLE 39907181501 No Longer Active Aris Cahrlton MD Active FLAGYL 500 MG TAB four tabs PO x 1 FLAGYL 500 MG TAB 664891 METRONIDAZOLE Inactive ZITHROMAX 1 GM ORAL PACK Take 1 time and recheck lab in 2-3 weeks ZITHROMAX 1 GM ORAL PACK 806308 AZITHROMYCIN Inactive TRIAMCINOLONE ACETONIDE 0.1 % CREA Apply to affected areas TID for up to 1 week TRIAMCINOLONE ACETONIDE 0.1 % CREA 4892465 TRIAMCINOLONE ACETONIDE Inactive CLINDAMYCIN HCL 150 MG CAPS 1 four times a day for 1 week CLINDAMYCIN HCL 150 MG CAPS 196764 CLINDAMYCIN HCL Inactive CHANTIX 1 MG TABS [...] E&M - 3141-9 263.2 [lb_av] Weight Measured Diagnostic Results Date Name Value Unit Range Description Lab Report: CBC, Comp. Metabolic Panel, HGBA1C - Chemistry sodium, serum 142 mmol/L 385-303 2672 carbon dioxide, venous blood 32.8 mmol/L 21.0-32.0 [...] Panel - Chemistry cholesterol, serum 165 mg/dL 040-869 3730 triglyceride, serum, fasting 124 mg/dL 30-200 HDL cholesterol, serum 47 mg/dL 32-96 LDL cholesterol, serum 93 mg/dL 0-130 Lab Report: Prothrombin Time - Coagulation prothrombin time (patient) 12.0 SECS s 11.1-13.4 international normalized ratio (INR) 1.0 1.0-3.5 Lab Report: VITAMIN B12/FOLATE, SERUM PANE, FERRITIN, VITAMIN D, 25-HYDR ... - Chemistry vitamin D 25-hydroxy, serum 32 ng/mL 30-100 Encounters Code Encounter Date Provider Facility CPT-73767 Level 4 Est. Patient 08:56:42 STUCCO LABORER Sasha Espitia APRN [facility] CPT-19664 Level 3 Est. Patient 16:40:58 CDT Rian Ortega MD [facility] CPT-06947 Level 3 Est. Patient 13:55:16 STUCCO LABORER Rian Ortega MD [facility] CPT-80486 Level 3 Est. Patient 10:42:52 CDT Corrina Bailon APRN [facility] CPT-85929 Level 3 Est. Patient 11:18:30 CDT Aris Charlton MD [facility] Procedures Code Procedure Name Date Entry Date Standard Description CPT-41448 Wet Mount - LAB USE ONLY 11:11:39 STUCCO LABORER CPT-51067 Lipid - LAB USE ONLY 15:05:24 STUCCO LABORER CPT-89455 PT/INR - LAB USE ONLY 12:14:07 CDT CPT-14431 HGBA1C - LAB USE ONLY 12:14:07 CDT CPT-24463 CMP - LAB USE ONLY 12:14:07 CDT CPT-61642 CBC - LAB USE ONLY 12:14:07 CDT CPT-27752 Venipuncture Draw Fee 12:14:06 CDT CPT-J0702 Celestone 6 mg (Betamethasone) 15:04:45 STUCCO LABORER CPT-49712 Abx/Therapy Injection 15:04:45 STUCCO LABORER CPT-J0702 Celestone 12 mg (Betamethasone) 11:45:31 STUCCO LABORER CPT-03033 Visit 11:39:52 STUCCO LABORER CPT-82946K Sono biophysical pro wo stress test-[place] Only 11:21: 42 STUCCO LABORER CPT-18971 Visit 16:00:50 STUCCO LABORER CPT-98370G Sono biophysical pro wo stress test-[place] Only 13:12: 18 STUCCO LABORER CPT-74182 Sono biophysical pro wo stress test 11:17:21 STUCCO LABORER 05/21 CPT-75512 Tdap 7yrs or > 15:22:51 STUCCO LABORER CPT-16633 Immunization Single Admin 15:22:51 STUCCO LABORER CPT-70006 Tdap 7yrs or > 15:09:13 STUCCO LABORER CPT-76064 Visit 14:54:16 STUCCO LABORER CPT-76531 Fluzone Quadrivalent Intramuscular Suspension 0.5 ML 16: 58:58 CDT CPT-15456 Administration single or combination vaccine inc oral 16 :58:58 CDT CPT-72442 Fluzone Thim Free 36mo and older 14:47:39 CDT CPT-06611 Visit 14:47:39 CDT CPT-86670 Sono OB limited 10:30:07 CDT CPT-23863 Visit 10:04:44 CDT CPT-21931 Sono OB comp > 14 weeks 12:50:41 CDT CPT-83232 Visit 12:06:25 CDT CPT-67413 Visit 12:43:15 CDT CPT-12594 Visit 10:06:02 CDT CPT-73448 Spec Collection and Handling Fee 10:00:31 CDT CPT-05581 Visit 10:00:30 CDT CPT-08927 Drug Screen Grisel 14:36:13 CDT
--- OUTSIDE RECORDS SUMMARY | 2018-08-28 07:05 | XMS REPORT | Clinical Summary ---
Author Author Admin, [facility] Organization 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 exam V72.31 Active Sasha Espitia [...] not specified Bronchitis 490 Active Carline Best LAB ASSISTANT Bronchitis, not specified as acute or chronic [...] Status Provider Patient Instruction GUAIFENESIN 600 MG [id number] 1 twice a day as needed for congestion GUAIFENESIN 80955851890 Active Carline Best APRN Active SYMBICORT 160-4.5 MCG/ACT AERO 2 puff BID for 10 days BUDESONIDE-FORMOTEROL FUMARATE 80094320112 Active Carline Best APRN Active AZITHROMYCIN 250 MG TABS 2 po qd x 1 day, then 1 po qd x 4 days AZITHROMYCIN 53652487816 Active Carline Best APRN Active CIPRO 500 MG TAB 1 tablet by mouth twice daily CIPROFLOXACIN HCL 40549385014 No Longer Active Tariq Marrero MD Active AZO TABS TABS 2 tabs qd PHENAZOPYRIDINE HCL TABS 32040700941 No Longer Active Tariq Marrero MD Active CIPROFLOXACIN HCL 250 MG ORAL TABS 1 twice a day for bladder infection 07/24 CIPROFLOXACIN HCL 48110011982 No Longer Active Tariq Marrero MD Active SM VITAMIN B12 TR 1000 MCG ORAL CR-TABS 1 tab po daily CYANOCOBALAMIN 65319227881 No Longer Active Nereyda Rodriguez APRN Active CARAFATE 1 GM TAB 1 tab po as needed up to 4 times per day SUCRALFATE 64504586165 No Longer Active Nereyda Rodriguez APRN Active PNV PLUS MULTIVITAMIN 27-1 MG ORAL TABS 1 daily VIT-FE FUMARATE-FA 44831157445 No Longer Active Sasha Espitia APRN Active CHANTIX STARTING MONTH DANILO 0.5 MG X 11 & 1 MG X 42 TABS take as directed 2015 VARENICLINE TARTRATE 97965981286 No Longer Active Sasha Espitia APRN Active CHANTIX 1 MG TABS 1 twice a day to help quit smoking VARENICLINE TARTRATE 05310237771 No Longer Active Sasha Espitia APRN Active OMEPRAZOLE 20 MG CPDR 1 tablet by mouth daily OMEPRAZOLE 43081915882 Active Sasha Espitia APRN Active FLINSTONES GUMMIES OMEGA-3 DHA ORAL CHEW 2 gummies per day PEDIATRIC MULTIPLE VIT-C-FA 34517498451 Active Sasha Espitia APRN Active CLINDAMYCIN HCL 150 MG CAPS 1 four times a day for 1 week CLINDAMYCIN HCL 24636909868 No Longer Active Karen Jaramillo MD Active TRIAMCINOLONE ACETONIDE 0.1 % CREA Apply to affected areas TID for up to 1 week TRIAMCINOLONE ACETONIDE 43621765445 No Longer Active Rian Ortega MD Active ZITHROMAX 1 GM ORAL PACK Take 1 time and recheck lab in 2-3 weeks AZITHROMYCIN 45604900784 No Longer Active Rian Ortega MD Active FLAGYL 500 MG TAB four tabs PO x 1 METRONIDAZOLE 21802403002 No Longer Active Aris Charlton MD Active FLAGYL 500 MG TAB four tabs PO x 1 FLAGYL 500 MG TAB 760351 METRONIDAZOLE Inactive ZITHROMAX 1 GM ORAL PACK Take 1 time and recheck lab in 2-3 weeks ZITHROMAX 1 GM ORAL PACK 785877 AZITHROMYCIN Inactive TRIAMCINOLONE ACETONIDE 0.1 % CREA Apply to affected areas TID for up to 1 week TRIAMCINOLONE ACETONIDE 0.1 % CREA 2412535 TRIAMCINOLONE ACETONIDE Inactive CLINDAMYCIN HCL 150 MG CAPS 1 four times a day for 1 week CLINDAMYCIN HCL 150 MG CAPS 391052 CLINDAMYCIN HCL Inactive CHANTIX 1 MG TABS [...] per day 06/27 CARAFATE 1 GM TAB 612830 SUCRALFATE Inactive SM VITAMIN B12 TR 1000 MCG ORAL CR-TABS 1 tab po daily SM VITAMIN B12 TR 1000 MCG ORAL CR-TABS CYANOCOBALAMIN Inactive CIPROFLOXACIN HCL 250 MG ORAL TABS 1 twice a day for bladder infection 07/24 CIPROFLOXACIN HCL 250 MG ORAL TABS 215366 CIPROFLOXACIN HCL Inactive AZO TABS TABS 2 tabs qd AZO TABS TABS PHENAZOPYRIDINE HCL TABS Inactive CIPRO 500 MG TAB 1 tablet by mouth twice daily CIPRO 500 MG TAB 274941 CIPROFLOXACIN HCL Inactive Immunizations Vaccine Administration Date [...] Description Lab Report: CBC, Comp. Metabolic Panel, [facility] - Chemistry sodium, serum 142 mmol/L [phone] carbon dioxide, venous blood 32.8 mmol/L 21.0-32.0 [...] Panel - Chemistry cholesterol, serum 165 mg/dL [phone] triglyceride, serum, fasting 124 mg/dL 30-200 HDL [...] 30-100 Encounters Code Encounter Date Provider Facility CPT-60993 Level 3 Est. Patient 11:17:51 CDT Carline Best APRN [facility] CPT-82154 Level 3 Est. Patient 15:43:38 CDT Tariq Marrero MD [facility] CPT-83501 Level 3 Est. Patient 11:16:27 WINDOW ASSEMBLER Nereyda Rodriguez [facility] CPT-93835 Level 4 Est. Patient 08:56:42 WINDOW ASSEMBLER Sasha Espitia [facility] CPT-85972 Level 3 Est. Patient 16:40:58 CDT Rian Ortega MD [facility] CPT-70060 Level 3 Est. Patient 13:55:16 WINDOW ASSEMBLER Rian Ortega MD [facility] CPT-93616 Level 3 Est. Patient 10:42:52 CDT Corrina Uvaldo [facility] CPT-05658 Level 3 Est. Patient 11:18:30 CDT Aris Charlton MD [facility] Procedures Code Procedure Name Date Entry Date Standard Description CPT-14589 UA w micro - LAB USE ONLY 13:09:18 WINDOW ASSEMBLER CPT-47538 Urine Culture - LAB USE ONLY 13:09:18 WINDOW ASSEMBLER CPT-47865 Wet Mount - LAB USE ONLY 11:11:39 WINDOW ASSEMBLER CPT-54179 Lipid - LAB USE ONLY 15:05:24 WINDOW ASSEMBLER CPT-15418 PT/INR - LAB USE ONLY 12:14:07 CDT CPT-98746 HGBA1C - LAB USE ONLY 12:14:07 CDT CPT-57471 CMP - LAB USE ONLY 12:14:07 CDT CPT-46442 CBC - LAB USE ONLY 12:14:07 CDT CPT-30485 Venipuncture Draw Fee 12:14:06 CDT CPT-J0702 Celestone 6 mg (Betamethasone) 15:04:45 WINDOW ASSEMBLER CPT-22042 Abx/Therapy Injection 15:04:45 WINDOW ASSEMBLER CPT-J0702 Celestone 12 mg (Betamethasone) 11:45:31 WINDOW ASSEMBLER CPT-10175 Visit 11:39:52 WINDOW ASSEMBLER CPT-60192X Sono biophysical pro wo stress test-[facility] 11:21: 42 WINDOW ASSEMBLER CPT-74895 Visit 16:00:50 WINDOW ASSEMBLER CPT-73586T Sono biophysical pro wo stress test-[facility] 13:12: 18 WINDOW ASSEMBLER CPT-96992 Sono biophysical pro wo stress test 11:17:21 WINDOW ASSEMBLER 05/21 CPT-79972 Tdap 7yrs or > 15:22:51 WINDOW ASSEMBLER CPT-87025 Immunization Single Admin 15:22:51 WINDOW ASSEMBLER CPT-89134 Tdap 7yrs or > 15:09:13 WINDOW ASSEMBLER CPT-61998 Visit 14:54:16 WINDOW ASSEMBLER CPT-77088 Fluzone Quadrivalent Intramuscular Suspension 0.5 ML 16: 58:58 CDT CPT-84894 Administration single or combination vaccine inc oral 16 :58:58 CDT CPT-87110 Fluzone Thim Free 36mo and older 14:47:39 CDT CPT-55766 Visit 14:47:39 CDT CPT-45407 Sono OB limited 10:30:07 CDT CPT-75605 Visit 10:04:44 CDT CPT-63751 Sono OB comp > 14 weeks 12:50:41 CDT CPT-47355 Visit 12:06:25 CDT CPT-26646 Visit 12:43:15 CDT CPT-71439 Visit 10:06:02 CDT CPT-57587 Spec Collection and Handling Fee 10:00:31 CDT CPT-71785 Visit 10:00:30 CDT CPT-09660 Drug Screen [place]isel 14:36:13 CDT
--- OUTSIDE RECORDS SUMMARY | 2018-08-28 07:05 | XMS REPORT | Clinical Summary ---
Author Author Admin, E Organization [employer] Address Unknown Phone Unavailable Allergies, Adverse Reactions, [...] Active Rian Ortega MD Tobacco use disorder Financial Associate well woman exam V72.31 Active Sasha Tan [...] po qd x 4 days 07/27 AZITHROMYCIN 23868717379 No Longer Active Carline Best APRN Active GUAIFENESIN ER 600 MG ORAL TABLET EXTENDED RELEASE 12 HOUR 1 twice a day as needed for congestion GUAIFENESIN 60211320679 No Longer Active Sasha Tan APRN Active CYCLOBENZAPRINE HCL 10 MG ORAL TABLET 1 three times a day as needed for muscle spasm CYCLOBENZAPRINE HCL 00649838778 No Longer Active Sasha Tan APRN Active SYMBICORT 160-4.5 MCG/ACT INHALATION AEROSOL 2 puff BID for 10 days BUDESONIDE-FORMOTEROL FUMARATE 13983250240 No Longer Active Rian Ortega MD Active AZITHROMYCIN 250 MG ORAL TABLET 2 po qd x 1 day, then 1 po qd x 4 days 02/15 AZITHROMYCIN 83709545606 No Longer Active Carline Best APRN Active CIPRO 500 MG ORAL TABLET 1 tablet by mouth twice daily CIPROFLOXACIN HCL 53238593816 No Longer Active Tariq Marrero MD Active AZO TABS TABLET 2 tabs qd PHENAZOPYRIDINE HCL TABS 34312429065 No Longer Active Tariq Marrero MD Active CIPROFLOXACIN HCL 250 MG ORAL TABLET 1 twice a day for bladder infection 2016 CIPROFLOXACIN HCL 18017598576 No Longer Active Tariq Marrero MD Active SM VITAMIN B12 TR 1000 MCG ORAL TABLET EXTENDED RELEASE 1 tab po daily 04/24 CYANOCOBALAMIN 39532734234 No Longer Active Nereyda Rodriguez APRN Active CARAFATE 1 GM ORAL TABLET 1 tab po as needed up to 4 times per day SUCRALFATE 68826464273 No Longer Active Nereyda Rodriguez APRN Active PNV PLUS MULTIVITAMIN 27-1 MG ORAL TABLET 1 daily 04/24 VIT-FE FUMARATE-FA 33381475560 No Longer Active Sasha Tan APRN Active CHANTIX STARTING MONTH DANILO 0.5 MG X 11 & 1 MG X 42 ORAL TABLET take as directed VARENICLINE TARTRATE 18423531942 No Longer Active Sasha Tan APRN Active CHANTIX 1 MG ORAL TABLET 1 twice a day to help quit smoking 04/24 VARENICLINE TARTRATE 25584195250 No Longer Active Sasha Tan APRN Active OMEPRAZOLE 20 MG ORAL CAPSULE DELAYED RELEASE 1 tablet by mouth daily OMEPRAZOLE 77548490081 Active Sasha Tan APRN Active FLINSTONES GUMMIES OMEGA-3 DHA ORAL TABLET CHEWABLE 2 gummies per day PEDIATRIC MULTIPLE VIT-C-FA 52059963776 Active Sasha Tan APRN Active CLINDAMYCIN HCL 150 MG ORAL CAPSULE 1 four times a day for 1 week CLINDAMYCIN HCL 94965286984 No Longer Active Karen Jaramillo MD Active TRIAMCINOLONE ACETONIDE 0.1 % EXTERNAL CREAM Apply to affected areas TID for up to 1 week TRIAMCINOLONE ACETONIDE 95101565101 No Longer Active Rian Ortega MD Active ZITHROMAX 1 GM ORAL PACKET Take 1 time and recheck lab in 2-3 weeks AZITHROMYCIN 49070407904 No Longer Active Rian Ortega MD Active FLAGYL 500 MG ORAL TABLET four tabs PO x 1 METRONIDAZOLE 96786276178 No Longer Active Aris Charlton MD Active FLAGYL 500 MG ORAL TABLET four tabs PO x 1 FLAGYL 500 MG ORAL TABLET 107781 METRONIDAZOLE Inactive ZITHROMAX 1 GM ORAL PACKET Take 1 time and recheck lab in 2-3 weeks ZITHROMAX 1 GM ORAL PACKET 687091 AZITHROMYCIN Inactive TRIAMCINOLONE ACETONIDE 0.1 % EXTERNAL CREAM Apply to affected areas TID for up to 1 week TRIAMCINOLONE ACETONIDE 0.1 % EXTERNAL CREAM 6021688 TRIAMCINOLONE ACETONIDE Inactive CLINDAMYCIN HCL 150 MG ORAL CAPSULE 1 four times a day for 1 week CLINDAMYCIN HCL 150 MG ORAL CAPSULE 624512 CLINDAMYCIN HCL Inactive CHANTIX 1 MG ORAL [...] per day CARAFATE 1 GM ORAL TABLET 539262 SUCRALFATE Inactive SM VITAMIN B12 TR 1000 MCG ORAL TABLET EXTENDED RELEASE 1 tab po daily 04/24 SM VITAMIN B12 TR 1000 MCG ORAL TABLET EXTENDED RELEASE CYANOCOBALAMIN Inactive CIPROFLOXACIN HCL 250 MG ORAL TABLET 1 twice a day for bladder infection 2016 CIPROFLOXACIN HCL 250 MG ORAL TABLET 881099 CIPROFLOXACIN HCL Inactive AZO TABS TABLET 2 tabs qd AZO TABS TABLET PHENAZOPYRIDINE HCL TABS Inactive SYMBICORT 160-4.5 MCG/ACT INHALATION AEROSOL 2 puff BID for 10 days SYMBICORT 160-4.5 MCG/ACT INHALATION AEROSOL BUDESONIDE- FORMOTEROL FUMARATE Inactive CYCLOBENZAPRINE HCL 10 MG ORAL TABLET 1 three times a day as needed for muscle spasm CYCLOBENZAPRINE HCL 10 MG ORAL TABLET 136497 CYCLOBENZAPRINE HCL Inactive GUAIFENESIN ER 600 MG ORAL TABLET EXTENDED RELEASE 12 HOUR 1 twice a day as needed for congestion GUAIFENESIN ER 600 MG ORAL TABLET EXTENDED RELEASE 12 HOUR GUAIFENESIN Inactive CIPRO 500 MG ORAL TABLET 1 tablet by mouth twice daily CIPRO 500 MG ORAL TABLET 073055 CIPROFLOXACIN HCL Inactive AZITHROMYCIN 250 MG ORAL TABLET 2 po qd x 1 day, then 1 po qd x 4 days 02/15 AZITHROMYCIN 250 MG ORAL TABLET 661860 AZITHROMYCIN Inactive AZITHROMYCIN 250 MG ORAL TABLET 2 po qd x 1 day, then 1 po qd x 4 days 07/27 AZITHROMYCIN 250 MG ORAL TABLET 802894 AZITHROMYCIN Inactive Immunizations Vaccine Administration Date Value [...] Measured blood pressure, diastolic 59 mm[Hg] BP clavo blood pressure, systolic 114 mm[Hg] BP sys [...] ... - Chemistry cholesterol, serum 142 mg/dL 798-887 5216/10/24 triglyceride, serum, fasting 77 mg/dL 30-200 HDL [...] % 11.6-14.8 platelet count 291 10^3/MM^3 10*3/mm3 891-330 0964/10/24 mean corpuscular volume, RBC 90 fL 80-97 hematocrit, blood 40.6 % 37.0-47.0 hemoglobin, blood 13.3 g/dL 12.0-16.0 erythrocyte (RBC) count 4.51 10^6/MM^3 10*6/mm3 3.80-5.80 leukocyte count, blood 6.9 10^3/MM^3 10*3/mm3 4.6-10.2 Lab Report: Comp. Metabolic Panel - Chemistry sodium, serum 137 mmol/L 638-204 3643/10/24 carbon dioxide, venous blood 24.4 mmol/L 21.0-32.0 [...] Negative;Positive Encounters Code Encounter Date Provider Facility CPT-34343 Level 3 Est. Patient 14:41:20 CDT Tariq Marrero MD [facility] CPT-12136 Level 3 Est. Patient 11:06:09 AMBULANCE ATTENDANT Carline Best [facility] CPT-69995 Level 3 Est. Patient 15:59:13 AMBULANCE ATTENDANT Carline Best [facility] CPT-77919 Employment/ICC Exam 15:03:09 AMBULANCE ATTENDANT Sasha Tan [facility] CPT-18445 Level 3 Est. Patient 11:54:40 CDT Rian Ortega MD [facility] CPT-28281 Level 3 Est. Patient 11:17:51 CDT Carline Best [facility] CPT-09148 Level 3 Est. Patient 15:43:38 CDT Tariq Marrero MD [facility] CPT-20923 Level 3 Est. Patient 11:16:27 AMBULANCE ATTENDANT Nereyda Rodriguez [facility] CPT-87332 Level 4 Est. Patient 08:56:42 AMBULANCE ATTENDANT Sasha Tan [facility] CPT-35343 Level 3 Est. Patient 16:40:58 CDT Rian Ortega MD [facility] CPT-09747 Level 3 Est. Patient 13:55:16 AMBULANCE ATTENDANT Rian Ortega MD [facility] CPT-21629 Level 3 Est. Patient 10:42:52 CDT Corrina Bailon [facility] CPT-56100 Level 3 Est. Patient 11:18:30 CDT Aris Charlton MD [facility] Procedures Code Procedure Name Date Entry Date Standard Description CPT-15857 UA w micro - LAB USE ONLY 13:09:18 AMBULANCE ATTENDANT CPT-23939 Urine Culture - LAB USE ONLY 13:09:18 AMBULANCE ATTENDANT CPT-77912 Wet Mount - LAB USE ONLY 11:11:39 AMBULANCE ATTENDANT CPT-56190 Lipid - LAB USE ONLY 15:05:24 AMBULANCE ATTENDANT CPT-71652 PT/INR - LAB USE ONLY 12:14:07 CDT CPT-89885 HGBA1C - LAB USE ONLY 12:14:07 CDT CPT-59808 CMP - LAB USE ONLY 12:14:07 CDT CPT-14155 CBC - LAB USE ONLY 12:14:07 CDT CPT-16369 Venipuncture Draw Fee 12:14:06 CDT CPT-J0702 Celestone 6 mg (Betamethasone) 15:04:45 AMBULANCE ATTENDANT CPT-50582 Abx/Therapy Injection 15:04:45 AMBULANCE ATTENDANT CPT-J0702 Celestone 12 mg (Betamethasone) 11:45:31 AMBULANCE ATTENDANT CPT-30362 Visit 11:39:52 AMBULANCE ATTENDANT CPT-26853R Sono biophysical pro wo stress test-[place] Only 11:21: 42 AMBULANCE ATTENDANT CPT-22785 Visit 16:00:50 AMBULANCE ATTENDANT CPT-48343N Sono biophysical pro wo stress test-[place] Only 13:12: 18 AMBULANCE ATTENDANT CPT-50516 Sono biophysical pro wo stress test 11:17:21 AMBULANCE ATTENDANT 05/21 CPT-38506 Tdap 7yrs or > 15:22:51 AMBULANCE ATTENDANT CPT-39728 Immunization Single Admin 15:22:51 AMBULANCE ATTENDANT CPT-28621 Tdap 7yrs or > 15:09:13 AMBULANCE ATTENDANT CPT-33315 Visit 14:54:16 AMBULANCE ATTENDANT CPT-46379 Fluzone Quadrivalent Intramuscular Suspension 0.5 ML 16: 58:58 CDT CPT-42803 Administration single or combination vaccine inc oral 16 :58:58 CDT CPT-91917 Fluzone Thim Free 36mo and older 14:47:39 CDT CPT-67378 Visit 14:47:39 CDT CPT-74990 Sono OB limited 10:30:07 CDT CPT-39791 Visit 10:04:44 CDT CPT-43237 Sono OB comp > 14 weeks 12:50:41 CDT CPT-05167 Visit 12:06:25 CDT CPT-56893 Visit 12:43:15 CDT CPT-47117 Visit 10:06:02 CDT CPT-93433 Spec Collection and Handling Fee 10:00:31 CDT CPT-14250 Visit 10:00:30 CDT CPT-82180 Drug Screen Grisel 14:36:13 CDT
--- OUTSIDE RECORDS SUMMARY | 2018-08-28 07:06 | XMS REPORT | Clinical Summary ---
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 Labeler well woman exam V72.31 Active Sasha Espitia [...] MG ORAL TABS 1 daily VIT-FE FUMARATE-FA 43395529668 No Longer Active Sasha Espitia APRN Active CHANTIX STARTING MONTH DANILO 0.5 MG X 11 & 1 MG X 42 TABS take as directed 2015 VARENICLINE TARTRATE 09586173982 No Longer Active Sasha Espitia APRN Active CHANTIX 1 MG TABS 1 twice a day to help quit smoking VARENICLINE TARTRATE 26139886607 No Longer Active Sashashante Espitia APRN Active OMEPRAZOLE 20 MG CPDR 1 tablet by mouth daily OMEPRAZOLE 16776750296 Active Sasha Espitia BETO Active CARAFATE 1 GM TAB 1 tab po as needed up to 4 times per day SUCRALFATE 52179866056 Active Sashashante Espitia APRN Active FLINSTONES GUMMIES OMEGA-3 DHA ORAL CHEW 2 gummies per day PEDIATRIC MULTIPLE VIT-C-FA 40199311934 Active Sasha Espitia BETO Active SM VITAMIN B12 TR 1000 MCG ORAL CR-TABS 1 tab po daily CYANOCOBALAMIN 57515422285 Active Sasha Omkar PÉREZ Active CLINDAMYCIN HCL 150 MG CAPS 1 four times a day for 1 week CLINDAMYCIN HCL 83251677790 No Longer Active Karen Jaramillo MD Active TRIAMCINOLONE ACETONIDE 0.1 % CREA Apply to affected areas TID for up to 1 week TRIAMCINOLONE ACETONIDE 41109450471 No Longer Active Rian Ortega MD Active ZITHROMAX 1 GM ORAL PACK Take 1 time and recheck lab in 2-3 weeks AZITHROMYCIN 39787496686 No Longer Active Rian Ortega MD Active FLAGYL 500 MG TAB four tabs PO x 1 METRONIDAZOLE 09733179763 No Longer Active Aris Charlton MD Active FLAGYL 500 MG TAB four tabs PO x 1 FLAGYL 500 MG TAB 810153 METRONIDAZOLE Inactive ZITHROMAX 1 GM ORAL PACK Take 1 time and recheck lab in 2-3 weeks ZITHROMAX 1 GM ORAL PACK 405945 AZITHROMYCIN Inactive TRIAMCINOLONE ACETONIDE 0.1 % CREA Apply to affected areas TID for up to 1 week TRIAMCINOLONE ACETONIDE 0.1 % CREA 3314713 TRIAMCINOLONE ACETONIDE Inactive CLINDAMYCIN HCL 150 MG CAPS 1 four times a day for 1 week CLINDAMYCIN HCL 150 MG CAPS 097134 CLINDAMYCIN HCL Inactive CHANTIX 1 MG TABS [...] HGBA1C - Chemistry sodium, serum 142 mmol/L 471-121 7519 carbon dioxide, venous blood 32.8 mmol/L 21.0-32.0 [...] Panel - Chemistry cholesterol, serum 165 mg/dL [phone] triglyceride, serum, fasting 124 mg/dL 30-200 HDL [...] N Encounters Code Encounter Date Provider Facility CPT-00392 Level 4 Est. Patient 08:56:42 HOTHOUSE WORKER Sasha Espitia [facility] CPT-85050 Level 3 Est. Patient 16:40:58 CDT Rian Ortega MD [facility] CPT-26599 Level 3 Est. Patient 13:55:16 HOTHOUSE WORKER Rian Ortega MD [facility] CPT-65403 Level 3 Est. Patient 10:42:52 CDT Corrinagodfrey Bailon [facility] CPT-19126 Level 3 Est. Patient 11:18:30 CDT Aris Charlton MD [facility] Procedures Code Procedure Name Date Entry Date Standard Description CPT-82277 Wet Mount - LAB USE ONLY 11:11:39 HOTHOUSE WORKER CPT-57663 Lipid - LAB USE ONLY 15:05:24 HOTHOUSE WORKER CPT-11487 PT/INR - LAB USE ONLY 12:14:07 CDT CPT-94189 HGBA1C - LAB USE ONLY 12:14:07 CDT CPT-98905 CMP - LAB USE ONLY 12:14:07 CDT CPT-67514 CBC - LAB USE ONLY 12:14:07 CDT CPT-81371 Venipuncture Draw Fee 12:14:06 CDT CPT-J0702 Celestone 6 mg (Betamethasone) 15:04:45 HOTHOUSE WORKER CPT-35313 Abx/Therapy Injection 15:04:45 HOTHOUSE WORKER CPT-J0702 Celestone 12 mg (Betamethasone) 11:45:31 HOTHOUSE WORKER CPT-81711 Visit 11:39:52 HOTHOUSE WORKER CPT-31532W Sono biophysical pro wo stress test-[facility] 11:21: 42 HOTHOUSE WORKER CPT-20047 Visit 16:00:50 HOTHOUSE WORKER CPT-69461U Sono biophysical pro wo stress test-[facility] 13:12: 18 HOTHOUSE WORKER CPT-84387 Sono biophysical pro wo stress test 11:17:21 HOTHOUSE WORKER 05/21 CPT-07327 Tdap 7yrs or > 15:22:51 HOTHOUSE WORKER CPT-11654 Immunization Single Admin 15:22:51 HOTHOUSE WORKER CPT-92156 Tdap 7yrs or > 15:09:13 HOTHOUSE WORKER CPT-63690 Visit 14:54:16 HOTHOUSE WORKER CPT-65551 Fluzone Quadrivalent Intramuscular Suspension 0.5 ML 16: 58:58 CDT CPT-99390 Administration single or combination vaccine inc oral 16 :58:58 CDT CPT-34594 Fluzone Thim Free 36mo and older 14:47:39 CDT CPT-23093 Visit 14:47:39 CDT CPT-45449 Sono OB limited 10:30:07 CDT CPT-19536 Visit 10:04:44 CDT CPT-71165 Sono OB comp > 14 weeks 12:50:41 CDT CPT-97421 Visit 12:06:25 CDT CPT-48272 Visit 12:43:15 CDT CPT-82031 Visit 10:06:02 CDT CPT-04176 Spec Collection and Handling Fee 10:00:31 CDT CPT-59053 Visit 10:00:30 CDT CPT-05320 Drug Screen Grisel 14:36:13 CDT
--- OUTSIDE RECORDS SUMMARY | 2018-08-28 07:07 | XMS REPORT | Clinical Summary ---
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 Helper well woman exam V72.31 Active Sasha [...] 20 weeks gestation of ICD-V28.9 Inactive Deepika IRTCHIE Low lying placenta ICD-762.2 Inactive Rian Ortega [...] day for bladder infection 07/24 CIPROFLOXACIN HCL 07505393310 Active Nereyda Rodriguez APRN Active AZO TABS TABS 2 tabs qd PHENAZOPYRIDINE HCL TABS 66652344983 Active Nereyda Rodriguez APRN Active SM VITAMIN B12 TR 1000 MCG ORAL CR-TABS 1 tab po daily CYANOCOBALAMIN 34103776756 No Longer Active Nereyda Rodriguez APRN Active CARAFATE 1 GM TAB 1 tab po as needed up to 4 times per day SUCRALFATE 64325468565 No Longer Active Nereyda Rodriguez APRN Active PNV PLUS MULTIVITAMIN 27-1 MG ORAL TABS 1 daily VIT-FE FUMARATE-FA 86399963731 No Longer Active Sasha Espitia APRN Active CHANTIX STARTING MONTH DANILO 0.5 MG X 11 & 1 MG X 42 TABS take as directed 2015 VARENICLINE TARTRATE 69670062609 No Longer Active Sasha Espitia APRN Active CHANTIX 1 MG TABS 1 twice a day to help quit smoking VARENICLINE TARTRATE 50192183673 No Longer Active Sasha Espitia APRN Active OMEPRAZOLE 20 MG CPDR 1 tablet by mouth daily OMEPRAZOLE 29873593022 Active Sasha Espitia APRN Active FLINSTONES GUMMIES OMEGA-3 DHA ORAL CHEW 2 gummies per day PEDIATRIC MULTIPLE VIT-C-FA 33074583818 Active Sasha Espitia APRN Active CLINDAMYCIN HCL 150 MG CAPS 1 four times a day for 1 week CLINDAMYCIN HCL 08487092381 No Longer Active Karen Jaramillo MD Active TRIAMCINOLONE ACETONIDE 0.1 % CREA Apply to affected areas TID for up to 1 week TRIAMCINOLONE ACETONIDE 07607990258 No Longer Active Rian Ortega MD Active ZITHROMAX 1 GM ORAL PACK Take 1 time and recheck lab in 2-3 weeks AZITHROMYCIN 50804943616 No Longer Active Rian Ortega MD Active FLAGYL 500 MG TAB four tabs PO x 1 METRONIDAZOLE 74161869421 No Longer Active Aris Charlton MD Active FLAGYL 500 MG TAB four tabs PO x 1 FLAGYL 500 MG TAB 450603 METRONIDAZOLE Inactive ZITHROMAX 1 GM ORAL PACK Take 1 time and recheck lab in 2-3 weeks ZITHROMAX 1 GM ORAL PACK 616897 AZITHROMYCIN Inactive TRIAMCINOLONE ACETONIDE 0.1 % CREA Apply to affected areas TID for up to 1 week TRIAMCINOLONE ACETONIDE 0.1 % CREA 0012004 TRIAMCINOLONE ACETONIDE Inactive CLINDAMYCIN HCL 150 MG CAPS 1 four times a day for 1 week CLINDAMYCIN HCL 150 MG CAPS 953176 CLINDAMYCIN HCL Inactive CHANTIX 1 MG TABS [...] per day 06/27 CARAFATE 1 GM TAB 422666 SUCRALFATE Inactive SM VITAMIN B12 TR 1000 [...] HGBA1C - Chemistry sodium, serum 142 mmol/L 539-605 3042 carbon dioxide, venous blood 32.8 mmol/L 21.0-32.0 [...] Panel - Chemistry cholesterol, serum 165 mg/dL [phone] triglyceride, serum, fasting 124 mg/dL 30-200 HDL [...] 30-100 Encounters Code Encounter Date Provider Facility CPT-24768 Level 3 Est. Patient 11:16:27 ELEMENTARY SCHOOL COUNSELOR Nereyda Rodriguez [facility] CPT-49444 Level 4 Est. Patient 08:56:42 ELEMENTARY SCHOOL COUNSELOR Sasha Espitia [facility] CPT-75166 Level 3 Est. Patient 16:40:58 CDT Rian Ortega MD [facility] CPT-39289 Level 3 Est. Patient 13:55:16 ELEMENTARY SCHOOL COUNSELOR Rian Ortega MD [facility] CPT-57686 Level 3 Est. Patient 10:42:52 CDT Corrina Bailon [facility] CPT-83665 Level 3 Est. Patient 11:18:30 CDT Aris Charlton MD [facility] Procedures Code Procedure Name Date Entry Date Standard Description CPT-62736 UA w micro - LAB USE ONLY 13:09:18 ELEMENTARY SCHOOL COUNSELOR CPT-89669 Urine Culture - LAB USE ONLY 13:09:18 ELEMENTARY SCHOOL COUNSELOR CPT-57221 Wet Mount - LAB USE ONLY 11:11:39 ELEMENTARY SCHOOL COUNSELOR CPT-69902 Lipid - LAB USE ONLY 15:05:24 ELEMENTARY SCHOOL COUNSELOR CPT-43301 PT/INR - LAB USE ONLY 12:14:07 CDT CPT-84653 HGBA1C - LAB USE ONLY 12:14:07 CDT CPT-84497 CMP - LAB USE ONLY 12:14:07 CDT CPT-15523 CBC - LAB USE ONLY 12:14:07 CDT CPT-14069 Venipuncture Draw Fee 12:14:06 CDT CPT-J0702 Celestone 6 mg (Betamethasone) 15:04:45 ELEMENTARY SCHOOL COUNSELOR CPT-35847 Abx/Therapy Injection 15:04:45 ELEMENTARY SCHOOL COUNSELOR CPT-J0702 Celestone 12 mg (Betamethasone) 11:45:31 ELEMENTARY SCHOOL COUNSELOR CPT-67641 Visit 11:39:52 ELEMENTARY SCHOOL COUNSELOR CPT-69647K Sono biophysical pro wo stress test-[place] Only 11:21: 42 ELEMENTARY SCHOOL COUNSELOR CPT-20548 Visit 16:00:50 ELEMENTARY SCHOOL COUNSELOR CPT-48794W Sono biophysical pro wo stress test-[facility] 13:12: 18 ELEMENTARY SCHOOL COUNSELOR CPT-13261 Sono biophysical pro wo stress test 11:17:21 ELEMENTARY SCHOOL COUNSELOR 05/21 CPT-84066 Tdap 7yrs or > 15:22:51 ELEMENTARY SCHOOL COUNSELOR CPT-13969 Immunization Single Admin 15:22:51 ELEMENTARY SCHOOL COUNSELOR CPT-77118 Tdap 7yrs or > 15:09:13 ELEMENTARY SCHOOL COUNSELOR CPT-28656 Visit 14:54:16 ELEMENTARY SCHOOL COUNSELOR CPT-36415 Fluzone Quadrivalent Intramuscular Suspension 0.5 ML 16: 58:58 CDT CPT-60238 Administration single or combination vaccine inc oral 16 :58:58 CDT CPT-43793 Fluzone Thim Free 36mo and older 14:47:39 CDT CPT-18025 Visit 14:47:39 CDT CPT-45449 Sono OB limited 10:30:07 CDT CPT-45568 Visit 10:04:44 CDT CPT-73625 Sono OB comp > 14 weeks 12:50:41 CDT CPT-54304 Visit 12:06:25 CDT CPT-72198 Visit 12:43:15 CDT CPT-86231 Visit 10:06:02 CDT CPT-42878 Spec Collection and Handling Fee 10:00:31 CDT CPT-05056 Visit 10:00:30 CDT CPT-24128 Drug Screen Grisel 14:36:13 CDT
--- OUTSIDE RECORDS SUMMARY | 2018-08-28 07:07 | XMS REPORT | Clinical Summary ---
Author Author Admin, [facility] Organization [facility] Address Unknown Phone Unavailable Allergies, Adverse [...] screening of mother Cellulitis 682.9 Resolved Rian Ortgea MD Cellulitis and abscess of unspecified sites [...] Active Rian Ortega MD Tobacco use disorder Food Safety Manager well woman exam V72.31 Active Sasha [...] MG ORAL TABS 1 daily VIT-FE FUMARATE-FA 83994554181 No Longer Active Sasha Espitia APRN Active CHANTIX STARTING MONTH DANILO 0.5 MG X 11 & 1 MG X 42 TABS take as directed 2015 VARENICLINE TARTRATE 51543355844 No Longer Active Sasha Espitia APRN Active CHANTIX 1 MG TABS 1 twice a day to help quit smoking VARENICLINE TARTRATE 62421569068 No Longer Active Sashashante Espitia APRN Active OMEPRAZOLE 20 MG CPDR 1 tablet by mouth daily OMEPRAZOLE 10727282616 Active Sasha Espitia BETO Active CARAFATE 1 GM TAB 1 tab po as needed up to 4 times per day SUCRALFATE 71095371952 Active Sasha mOkar PÉREZ Active FLINSTONES GUMMIES OMEGA-3 DHA ORAL CHEW 2 gummies per day PEDIATRIC MULTIPLE VIT-C-FA 24711963886 Active Sasha Espitia BETO Active SM VITAMIN B12 TR 1000 MCG ORAL CR-TABS 1 tab po daily CYANOCOBALAMIN 08981112199 Active Sasha Espitia BETO Active CLINDAMYCIN HCL 150 MG CAPS 1 four times a day for 1 week CLINDAMYCIN HCL 84352739094 No Longer Active Karen Jaramillo MD Active TRIAMCINOLONE ACETONIDE 0.1 % CREA Apply to affected areas TID for up to 1 week TRIAMCINOLONE ACETONIDE 21747705505 No Longer Active Rian Ortega MD Active ZITHROMAX 1 GM ORAL PACK Take 1 time and recheck lab in 2-3 weeks AZITHROMYCIN 60128371806 No Longer Active Rian Ortega MD Active FLAGYL 500 MG TAB four tabs PO x 1 METRONIDAZOLE 77074905037 No Longer Active Aris Charlton MD Active FLAGYL 500 MG TAB four tabs PO x 1 FLAGYL 500 MG TAB 255606 METRONIDAZOLE Inactive ZITHROMAX 1 GM ORAL PACK Take 1 time and recheck lab in 2-3 weeks ZITHROMAX 1 GM ORAL PACK 985593 AZITHROMYCIN Inactive TRIAMCINOLONE ACETONIDE 0.1 % CREA Apply to affected areas TID for up to 1 week TRIAMCINOLONE ACETONIDE 0.1 % CREA 2648526 TRIAMCINOLONE ACETONIDE Inactive CLINDAMYCIN HCL 150 MG CAPS 1 four times a day for 1 week CLINDAMYCIN HCL 150 MG CAPS 907062 CLINDAMYCIN HCL Inactive CHANTIX 1 MG TABS [...] HGBA1C - Chemistry sodium, serum 142 mmol/L 882-253 8432 carbon dioxide, venous blood 32.8 mmol/L 21.0-32.0 [...] Panel - Chemistry cholesterol, serum 165 mg/dL 145-362 1892 triglyceride, serum, fasting 124 mg/dL 30-200 HDL [...] N Encounters Code Encounter Date Provider Facility CPT-06743 Level 4 Est. Patient 08:56:42 UTILIZATION MANAGEMENT MANAGER Sasha Espitia [facility] CPT-82637 Level 3 Est. Patient 16:40:58 CDT Rian Ortega MD [facility] CPT-95305 Level 3 Est. Patient 13:55:16 UTILIZATION MANAGEMENT MANAGER Rian Ortega MD [facility] CPT-43465 Level 3 Est. Patient 10:42:52 CDT Corrina Bailon [facility] [place] CPT-56671 Level 3 Est. Patient 11:18:30 CDT Aris Charlton MD [facility] Procedures Code Procedure Name Date Entry Date Standard Description CPT-29768 Wet Mount - LAB USE ONLY 11:11:39 UTILIZATION MANAGEMENT MANAGER CPT-02501 Lipid - LAB USE ONLY 15:05:24 UTILIZATION MANAGEMENT MANAGER CPT-84141 PT/INR - LAB USE ONLY 12:14:07 CDT CPT-22159 HGBA1C - LAB USE ONLY 12:14:07 CDT CPT-47166 CMP - LAB USE ONLY 12:14:07 CDT CPT-94662 CBC - LAB USE ONLY 12:14:07 CDT CPT-93527 Venipuncture Draw Fee 12:14:06 CDT CPT-J0702 Celestone 6 mg (Betamethasone) 15:04:45 UTILIZATION MANAGEMENT MANAGER CPT-97959 Abx/Therapy Injection 15:04:45 UTILIZATION MANAGEMENT MANAGER CPT-J0702 Celestone 12 mg (Betamethasone) 11:45:31 UTILIZATION MANAGEMENT MANAGER CPT-96969 Visit 11:39:52 UTILIZATION MANAGEMENT MANAGER CPT-23780N Sono biophysical pro wo stress test-[facility] Only 11:21: 42 UTILIZATION MANAGEMENT MANAGER CPT-04337 Visit 16:00:50 UTILIZATION MANAGEMENT MANAGER CPT-56333D Sono biophysical pro wo stress test-[facility] Only 13:12: 18 UTILIZATION MANAGEMENT MANAGER CPT-06769 Sono biophysical pro wo stress test 11:17:21 UTILIZATION MANAGEMENT MANAGER 05/21 CPT-96385 Tdap 7yrs or > 15:22:51 UTILIZATION MANAGEMENT MANAGER CPT-12195 Immunization Single Admin 15:22:51 UTILIZATION MANAGEMENT MANAGER CPT-58343 Tdap 7yrs or > 15:09:13 UTILIZATION MANAGEMENT MANAGER CPT-98011 Visit 14:54:16 UTILIZATION MANAGEMENT MANAGER CPT-83218 Fluzone Quadrivalent Intramuscular Suspension 0.5 ML 16: 58:58 CDT CPT-48420 Administration single or combination vaccine inc oral 16 :58:58 CDT CPT-90938 Fluzone Thim Free 36mo and older 14:47:39 CDT CPT-44510 Visit 14:47:39 CDT CPT-14971 Sono OB limited 10:30:07 CDT CPT-67946 Visit 10:04:44 CDT CPT-31865 Sono OB comp > 14 weeks 12:50:41 CDT CPT-24022 Visit 12:06:25 CDT CPT-41693 Visit 12:43:15 CDT CPT-42279 Visit 10:06:02 CDT CPT-62589 Spec Collection and Handling Fee 10:00:31 CDT CPT-77883 Visit 10:00:30 CDT CPT-29048 Drug Screen [place]isel 14:36:13 CDT
--- OUTSIDE RECORDS SUMMARY | 2018-08-28 07:08 | XMS REPORT | Clinical Summary ---
Author Author Admin, 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 exam V72.31 Active Sasha Espitia [...] Rian Ortega MD Abscess, skin ICD-682.9 Inactive Rina Ortega MD 30 weeks gestation of ICD-V28.9 Inactive Deepika MCQUEENT 31 weeks gestation of ICD-V28.9 Inactive Deepika RITCHIE Medication List Medication Instructions Start Date Stop Date Generic Name NDC Status Provider Patient Instruction PNV PLUS MULTIVITAMIN 27-1 MG ORAL TABS 1 daily VIT-FE FUMARATE-FA 83010251877 No Longer Active Sasha Espitia APRN Active CHANTIX STARTING MONTH DANILO 0.5 MG X 11 & 1 MG X 42 TABS take as directed 2015 VARENICLINE TARTRATE 31523740948 No Longer Active Sasha Espitia APRN Active CHANTIX 1 MG TABS 1 twice a day to help quit smoking VARENICLINE TARTRATE 68418473826 No Longer Active Sashashante Espitia APRN Active OMEPRAZOLE 20 MG CPDR 1 tablet by mouth daily OMEPRAZOLE 18558678582 Active Sasha Espitia BETO Active CARAFATE 1 GM TAB 1 tab po as needed up to 4 times per day SUCRALFATE 41549622432 Active Sashashante Espitia APRN Active FLINSTONES GUMMIES OMEGA-3 DHA ORAL CHEW 2 gummies per day PEDIATRIC MULTIPLE VIT-C-FA 37589664189 Active Sasha Espitia BETO Active SM VITAMIN B12 TR 1000 MCG ORAL CR-TABS 1 tab po daily CYANOCOBALAMIN 60487947586 Active Sasha Omkar PÉREZ Active CLINDAMYCIN HCL 150 MG CAPS 1 four times a day for 1 week CLINDAMYCIN HCL 75442995702 No Longer Active Karen Jaramillo MD Active TRIAMCINOLONE ACETONIDE 0.1 % CREA Apply to affected areas TID for up to 1 week TRIAMCINOLONE ACETONIDE 93703713782 No Longer Active Rian Ortega MD Active ZITHROMAX 1 GM ORAL PACK Take 1 time and recheck lab in 2-3 weeks AZITHROMYCIN 83642251270 No Longer Active Rian Ortega MD Active FLAGYL 500 MG TAB four tabs PO x 1 METRONIDAZOLE 68601625532 No Longer Active Aris Charlton MD Active FLAGYL 500 MG TAB four tabs PO x 1 FLAGYL 500 MG TAB 247841 METRONIDAZOLE Inactive ZITHROMAX 1 GM ORAL PACK Take 1 time and recheck lab in 2-3 weeks ZITHROMAX 1 GM ORAL PACK 931490 AZITHROMYCIN Inactive TRIAMCINOLONE ACETONIDE 0.1 % CREA Apply to affected areas TID for up to 1 week TRIAMCINOLONE ACETONIDE 0.1 % CREA 2085341 TRIAMCINOLONE ACETONIDE Inactive CLINDAMYCIN HCL 150 MG CAPS 1 four times a day for 1 week CLINDAMYCIN HCL 150 MG CAPS 551804 CLINDAMYCIN HCL Inactive CHANTIX 1 MG TABS [...] HGBA1C - Chemistry sodium, serum 142 mmol/L 776-349 6511 carbon dioxide, venous blood 32.8 mmol/L 21.0-32.0 [...] % 11.6-14.8 platelet count 302 10^3/MM^3 10*3/mm3 209-253 9681/11/18 mean corpuscular volume, RBC 92 fL 80-97 hematocrit, blood 32.9 % 36.0-46.0 hemoglobin, blood 11.2 g/dL 12.0-16.0 erythrocyte (RBC) count 3.60 10^6/MM^3 10*6/mm3 4.04-5.48 leukocyte count, blood 11.7 10^3/MM^3 10*3/mm3 4.6-10.2 Lab Report: Lipid Panel - Chemistry cholesterol, serum 165 mg/dL 850-447 1673 triglyceride, serum, fasting 124 mg/dL 30-200 HDL [...] N Encounters Code Encounter Date Provider Facility CPT-53162 Level 4 Est. Patient 08:56:42 SUPERVISOR MAINTENANCE AND CUSTODIANS Sasha Espitia [facility] CPT-79362 Level 3 Est. Patient 16:40:58 CDT Rian Ortega MD [facility] CPT-70198 Level 3 Est. Patient 13:55:16 SUPERVISOR MAINTENANCE AND CUSTODIANS Rian Ortega MD [facility] CPT-30190 Level 3 Est. Patient 10:42:52 CDT Corrina Bailon [facility] CPT-86203 Level 3 Est. Patient 11:18:30 CDT Aris Charlton MD [facility] Procedures Code Procedure Name Date Entry Date Standard Description CPT-63844 Wet Mount - LAB USE ONLY 11:11:39 SUPERVISOR MAINTENANCE AND CUSTODIANS CPT-95254 Lipid - LAB USE ONLY 15:05:24 SUPERVISOR MAINTENANCE AND CUSTODIANS CPT-58406 PT/INR - LAB USE ONLY 12:14:07 CDT CPT-28759 HGBA1C - LAB USE ONLY 12:14:07 CDT CPT-34626 CMP - LAB USE ONLY 12:14:07 CDT CPT-29678 CBC - LAB USE ONLY 12:14:07 CDT CPT-81511 Venipuncture Draw Fee 12:14:06 CDT CPT-J0702 Celestone 6 mg (Betamethasone) 15:04:45 SUPERVISOR MAINTENANCE AND CUSTODIANS CPT-47466 Abx/Therapy Injection 15:04:45 SUPERVISOR MAINTENANCE AND CUSTODIANS CPT-J0702 Celestone 12 mg (Betamethasone) 11:45:31 SUPERVISOR MAINTENANCE AND CUSTODIANS CPT-48985 Visit 11:39:52 SUPERVISOR MAINTENANCE AND CUSTODIANS CPT-35745N Sono biophysical pro wo stress test-[place] Only 11:21: 42 SUPERVISOR MAINTENANCE AND CUSTODIANS CPT-06419 Visit 16:00:50 SUPERVISOR MAINTENANCE AND CUSTODIANS CPT-60689S Sono biophysical pro wo stress test-[place] Only 13:12: 18 SUPERVISOR MAINTENANCE AND CUSTODIANS CPT-92786 Sono biophysical pro wo stress test 11:17:21 SUPERVISOR MAINTENANCE AND CUSTODIANS 05/21 CPT-58108 Tdap 7yrs or > 15:22:51 SUPERVISOR MAINTENANCE AND CUSTODIANS CPT-63350 Immunization Single Admin 15:22:51 SUPERVISOR MAINTENANCE AND CUSTODIANS CPT-01555 Tdap 7yrs or > 15:09:13 SUPERVISOR MAINTENANCE AND CUSTODIANS CPT-90525 Visit 14:54:16 SUPERVISOR MAINTENANCE AND CUSTODIANS CPT-18651 Fluzone Quadrivalent Intramuscular Suspension 0.5 ML 16: 58:58 CDT CPT-28734 Administration single or combination vaccine inc oral 16 :58:58 CDT CPT-32164 Fluzone Thim Free 36mo and older 14:47:39 CDT CPT-27572 Visit 14:47:39 CDT CPT-74993 Sono OB limited 10:30:07 CDT CPT-06171 Visit 10:04:44 CDT CPT-88353 Sono OB comp > 14 weeks 12:50:41 CDT CPT-05289 Visit 12:06:25 CDT CPT-74959 Visit 12:43:15 CDT CPT-37856 Visit 10:06:02 CDT CPT-25086 Spec Collection and Handling Fee 10:00:31 CDT CPT-59597 Visit 10:00:30 CDT CPT-33554 Drug Screen Grisel 14:36:13 CDT
--- OUTSIDE RECORDS SUMMARY | 2018-08-28 07:08 | XMS REPORT | Clinical Summary ---
Author Author Admin, [facility] Organization [facility] Address Unknown Phone Unavailable Allergies, Adverse [...] TAB four tabs PO x 1 METRONIDAZOLE 87934402773 Active Karen Jaramillo MD Active Diagnostic Results [...] % 11.0-15.0 platelet count 307 THOUSAND/UL 10*3/mm3 532-706 7128/05/26 mean platelet volume 8.9 fL 7.5-11.5 Lab [...] Procedure Name Date Entry Date Standard Description CPT-87256 Spec Collection and Handling Fee 10:00:31 CDT CPT-50263 Visit 10:00:30 CDT CPT-09685 Drug Screen [place]isel 14:36:13 CDT
--- OUTSIDE RECORDS SUMMARY | 2018-08-28 07:09 | XMS REPORT | Clinical Summary ---
Author Author Admin, E Organization [facility] Address Unknown Phone Unavailable Allergies, [...] a day for 1 week CLINDAMYCIN HCL 05302332112 No Longer Active Karen Jaramillo MD Active TRIAMCINOLONE ACETONIDE 0.1 % CREA Apply to affected areas TID for up to 1 week TRIAMCINOLONE ACETONIDE 69147770351 No Longer Active Rian Ortega MD Active ZITHROMAX 1 GM ORAL PACK Take 1 time and recheck lab in 2-3 weeks AZITHROMYCIN 48673721308 No Longer Active Rian Ortega MD Active PNV PLUS MULTIVITAMIN 27-1 MG ORAL TABS 1 daily VIT-FE FUMARATE-FA 02960508808 Active Aris Charlton MD Active FLAGYL 500 MG TAB four tabs PO x 1 METRONIDAZOLE 85061385622 No Longer Active Aris Charlton MD Active FLAGYL 500 MG TAB four tabs PO x 1 FLAGYL 500 MG TAB 802838 METRONIDAZOLE Inactive ZITHROMAX 1 GM ORAL PACK Take 1 time and recheck lab in 2-3 weeks ZITHROMAX 1 GM ORAL PACK 242897 AZITHROMYCIN Inactive TRIAMCINOLONE ACETONIDE 0.1 % CREA Apply to affected areas TID for up to 1 week TRIAMCINOLONE ACETONIDE 0.1 % CREA 9141453 TRIAMCINOLONE ACETONIDE Inactive CLINDAMYCIN HCL 150 MG CAPS 1 four times a day for 1 week CLINDAMYCIN HCL 150 MG CAPS 112853 CLINDAMYCIN HCL Inactive Immunizations Vaccine Administration Date [...] % 11.0-15.0 platelet count 307 THOUSAND/UL 10*3/mm3 830-301 4917/05/26 mean platelet volume 8.9 fL 7.5-11.5 Blood [...] ... - Chemistry sodium, serum 137 mmol/L 738-202 3323/08/28 potassium, serum 4.3 mmol/L 3.5-5.2 chloride, serum [...] percent of blood leukocytes 3.8 % 1.7-9.3 mean corpuscular hemoglobin, RBC 30.5 pg 27.0-31.2 mean corpuscular hemoglobin concentration, RBC 34.1 G/DL % 31.8- 35.4 red blood cell distribution width 14.7 % 11.6-14.8 platelet count 325 10^3/MM^3 10*3/mm3 001-032 0807/08/28 lymphocytes as percent of blood leukocytes 19.7 % 20.5-51.1 hematocrit, blood 35.2 % 36.0-46.0 mean corpuscular volume, RBC 89 fL 80-97 erythrocyte (RBC) count 3.94 10^6/MM^3 10*6/mm3 4.04-5.48 hemoglobin, blood 12.0 g/dL 12.0-16.0 Lab Report: CBC, Thyroid Stimulating Hormone (L), [...] 302 10^3/MM^3 10*3/mm3 142-424 Lab Report: Chlamydia/GC APTIMA/41490 - Lab chlamydia DNA probe DETECTED NOT DETECTED chlamydia DNA probe NOT DETECTED NOT DETECTED chlamydia DNA probe NOT DETECTED NOT DETECTED Lab Report: Chlamydia/GC APTIMA/29254 - Microbiology Neisseria gonorrhoeae DNA probe NOT DETECTED NOT DETECTED Neisseria gonorrhoeae DNA probe NOT DETECTED NOT DETECTED Neisseria gonorrhoeae DNA probe NOT DETECTED NOT DETECTED Lab Report: Chlamydia/GC APTIMA/62372, HEPATITIS B S AG W/, HIV-1/2 Agn/ ... - Chemistry hepatitis B surface antigen NON-REACTIVE NON-REACTIVE Lab Report: Chlamydia/GC APTIMA/12303, HEPATITIS B S AG W/, HIV-1/2 Agn/ ... - Lab chlamydia DNA probe NOT DETECTED NOT DETECTED Lab Report: Chlamydia/GC APTIMA/36787, HEPATITIS B S AG W/, HIV-1/2 Agn/ ... - Microbiology Neisseria gonorrhoeae DNA probe NOT DETECTED NOT DETECTED Lab Report: Chlamydia/GC APTIMA/65208, HEPATITIS B S AG W/, HIV-1/2 Agn/ [...] crystals, amorphous, urine, semiquantitative Moderate None seen Lab Report: [facility] - Chemistry human chorionic gonadotropin, urine, qualitative [...] N Encounters Code Encounter Date Provider Facility CPT-80976 Level 3 Est. Patient 13:55:16 OFFICE MACHINES WIRER Rian Ortega MD [facility] CPT-41346 Level 3 Est. Patient 10:42:52 CDT Corrina Bailon APRN [facility] CPT-87798 Level 3 Est. Patient 11:18:30 CDT Aris Charlton MD [facility] Procedures Code Procedure Name Date Entry Date Standard Description CPT-J0702 Celestone 6 mg (Betamethasone) 15:04:45 OFFICE MACHINES WIRER CPT-55121 Abx/Therapy Injection 15:04:45 OFFICE MACHINES WIRER CPT-J0702 Celestone 12 mg (Betamethasone) 11:45:31 OFFICE MACHINES WIRER CPT-45897 Visit 11:39:52 OFFICE MACHINES WIRER CPT-50167U Sono biophysical pro wo stress test-[place] Only 11:21: 42 OFFICE MACHINES WIRER CPT-42615 Visit 16:00:50 OFFICE MACHINES WIRER CPT-17604Q Sono biophysical pro wo stress test-[place] Only 13:12: 18 OFFICE MACHINES WIRER CPT-03336 Sono biophysical pro wo stress test 11:17:21 OFFICE MACHINES WIRER 05/21 CPT-05714 Tdap 7yrs or > 15:22:51 OFFICE MACHINES WIRER CPT-42574 Immunization Single Admin 15:22:51 OFFICE MACHINES WIRER CPT-31837 Tdap 7yrs or > 15:09:13 OFFICE MACHINES WIRER CPT-27419 Visit 14:54:16 OFFICE MACHINES WIRER CPT-97058 Fluzone Quadrivalent Intramuscular Suspension 0.5 ML 16: 58:58 CDT CPT-93275 Administration single or combination vaccine inc oral 16 :58:58 CDT CPT-08760 Fluzone Thim Free 36mo and older 14:47:39 CDT CPT-37604 Visit 14:47:39 CDT CPT-76073 Sono OB limited 10:30:07 CDT CPT-23426 Visit 10:04:44 CDT CPT-50617 Sono OB comp > 14 weeks 12:50:41 CDT CPT-72836 Visit 12:06:25 CDT CPT-02040 Visit 12:43:15 CDT CPT-55057 Visit 10:06:02 CDT CPT-14036 Spec Collection and Handling Fee 10:00:31 CDT CPT-29615 Visit 10:00:30 CDT CPT-63515 Drug Screen Grisel 14:36:13 CDT
--- OUTSIDE RECORDS SUMMARY | 2018-08-28 07:10 | XMS REPORT | Clinical Summary ---
Author Author Admin, E Organization [facility] Address Unknown Phone Unavailable [...] Rian Ortega MD Tobacco use disorder Steel Checker well woman exam V72.31 Active Sasha Espitia [...] MD Sexual activity, high risk ICD-V69.2 Inactive Rain Ortega MD Diarrhea ICD-787.91 Inactive Rian Ortega [...] as needed for muscle spasm CYCLOBENZAPRINE HCL 18365775934 Active Rian Ortega MD Active SYMBICORT 160-4.5 MCG/ACT AERO 2 puff BID for 10 days BUDESONIDE-FORMOTEROL FUMARATE 39023020936 No Longer Active Rian Ortega MD Active GUAIFENESIN 600 MG [id number] 1 twice a day as needed for congestion GUAIFENESIN 31430940404 Active Jillina Frazell THREAD MILLING MACHINE SET UP OPERATOR Active AZITHROMYCIN 250 MG TABS 2 po qd x 1 day, then 1 po qd x 4 days AZITHROMYCIN 61656039221 No Longer Active Jillina Fravirall THREAD MILLING MACHINE SET UP OPERATOR Active CIPRO 500 MG TAB 1 tablet by mouth twice daily CIPROFLOXACIN HCL 82218530783 No Longer Active Tariq Marrero MD Active AZO TABS TABS 2 tabs qd PHENAZOPYRIDINE HCL TABS 59233455615 No Longer Active Tariq Marrero MD Active CIPROFLOXACIN HCL 250 MG ORAL TABS 1 twice a day for bladder infection 07/24 CIPROFLOXACIN HCL 89275132599 No Longer Active Tariq Marrero MD Active SM VITAMIN B12 TR 1000 MCG ORAL CR-TABS 1 tab po daily CYANOCOBALAMIN 17739186730 No Longer Active Nereyda Rodriguez APRN Active CARAFATE 1 GM TAB 1 tab po as needed up to 4 times per day SUCRALFATE 29197312958 No Longer Active Nereyda Rodriguez APRN Active PNV PLUS MULTIVITAMIN 27-1 MG ORAL TABS 1 daily VIT-FE FUMARATE-FA 10175774946 No Longer Active Sasha Espitia APRN Active CHANTIX STARTING MONTH DANILO 0.5 MG X 11 & 1 MG X 42 TABS take as directed 2015 VARENICLINE TARTRATE 46771227757 No Longer Active Sasha Espitia APRN Active CHANTIX 1 MG TABS 1 twice a day to help quit smoking VARENICLINE TARTRATE 45434739917 No Longer Active Sasha Espitia APRN Active OMEPRAZOLE 20 MG CPDR 1 tablet by mouth daily OMEPRAZOLE 11462305705 Active Sasha Espitia APRN Active FLINSTONES GUMMIES OMEGA-3 DHA ORAL CHEW 2 gummies per day PEDIATRIC MULTIPLE VIT-C-FA 42016047826 Active Sasha Espitia APRN Active CLINDAMYCIN HCL 150 MG CAPS 1 four times a day for 1 week CLINDAMYCIN HCL 89246261776 No Longer Active Karen Jaramillo MD Active TRIAMCINOLONE ACETONIDE 0.1 % CREA Apply to affected areas TID for up to 1 week TRIAMCINOLONE ACETONIDE 29548415907 No Longer Active Rian Ortega MD Active ZITHROMAX 1 GM ORAL PACK Take 1 time and recheck lab in 2-3 weeks AZITHROMYCIN 33336005983 No Longer Active Rian Ortega MD Active FLAGYL 500 MG TAB four tabs PO x 1 METRONIDAZOLE 33137605759 No Longer Active Aris Charlton MD Active FLAGYL 500 MG TAB four tabs PO x 1 FLAGYL 500 MG TAB 381619 METRONIDAZOLE Inactive ZITHROMAX 1 GM ORAL PACK Take 1 time and recheck lab in 2-3 weeks ZITHROMAX 1 GM ORAL PACK 943503 AZITHROMYCIN Inactive TRIAMCINOLONE ACETONIDE 0.1 % CREA Apply to affected areas TID for up to 1 week TRIAMCINOLONE ACETONIDE 0.1 % CREA 6902055 TRIAMCINOLONE ACETONIDE Inactive CLINDAMYCIN HCL 150 MG CAPS 1 four times a day for 1 week CLINDAMYCIN HCL 150 MG CAPS 365677 CLINDAMYCIN HCL Inactive CHANTIX 1 MG TABS [...] per day 06/27 CARAFATE 1 GM TAB 452832 SUCRALFATE Inactive SM VITAMIN B12 TR 1000 MCG ORAL CR-TABS 1 tab po daily SM VITAMIN B12 TR 1000 MCG ORAL CR-TABS CYANOCOBALAMIN Inactive CIPROFLOXACIN HCL 250 MG ORAL TABS 1 twice a day for bladder infection 07/24 CIPROFLOXACIN HCL 250 MG ORAL TABS 950746 CIPROFLOXACIN HCL Inactive AZO TABS TABS 2 tabs qd AZO TABS TABS PHENAZOPYRIDINE HCL TABS Inactive SYMBICORT 160-4.5 MCG/ACT AERO 2 puff BID for 10 days SYMBICORT 160-4.5 MCG/ACT AERO BUDESONIDE-FORMOTEROL FUMARATE Inactive CIPRO 500 MG TAB 1 tablet by mouth twice daily CIPRO 500 MG TAB 391616 CIPROFLOXACIN HCL Inactive AZITHROMYCIN 250 MG TABS 2 po qd x 1 day, then 1 po qd x 4 days AZITHROMYCIN 250 MG TABS 426888 AZITHROMYCIN Inactive Immunizations Vaccine Administration Date Value [...] HGBA1C - Chemistry sodium, serum 142 mmol/L 152-184 7328 carbon dioxide, venous blood 32.8 mmol/L 21.0-32.0 [...] Panel - Chemistry cholesterol, serum 165 mg/dL 940-243 6290 triglyceride, serum, fasting 124 mg/dL 30-200 HDL [...] 30-100 Encounters Code Encounter Date Provider Facility CPT-34914 Level 3 Est. Patient 11:54:40 CDT Rian Ortega MD [facility] CPT-01661 Level 3 Est. Patient 11:17:51 CDT Carline Best [facility] CPT-49149 Level 3 Est. Patient 15:43:38 CDT Tariq Marrero MD [facility] CPT-40422 Level 3 Est. Patient 11:16:27 OPTIONS ADVISOR Nereyda Rodriguez [facility] CPT-14438 Level 4 Est. Patient 08:56:42 OPTIONS ADVISOR Sasha Espitia [facility] CPT-41409 Level 3 Est. Patient 16:40:58 CDT Rian Ortega MD [facility] CPT-53898 Level 3 Est. Patient 13:55:16 OPTIONS ADVISOR Rian Ortega MD [facility] CPT-68378 Level 3 Est. Patient 10:42:52 CDT Corrina Bailon [facility] CPT-24633 Level 3 Est. Patient 11:18:30 CDT Aris Charlton MD [facility] Procedures Code Procedure Name Date Entry Date Standard Description CPT-20962 UA w micro - LAB USE ONLY 13:09:18 OPTIONS ADVISOR CPT-00391 Urine Culture - LAB USE ONLY 13:09:18 OPTIONS ADVISOR CPT-31603 Wet Mount - LAB USE ONLY 11:11:39 OPTIONS ADVISOR CPT-48319 Lipid - LAB USE ONLY 15:05:24 OPTIONS ADVISOR CPT-01827 PT/INR - LAB USE ONLY 12:14:07 CDT CPT-25174 HGBA1C - LAB USE ONLY 12:14:07 CDT CPT-56289 CMP - LAB USE ONLY 12:14:07 CDT CPT-01137 CBC - LAB USE ONLY 12:14:07 CDT CPT-58157 Venipuncture Draw Fee 12:14:06 CDT CPT-J0702 Celestone 6 mg (Betamethasone) 15:04:45 OPTIONS ADVISOR CPT-79674 Abx/Therapy Injection 15:04:45 OPTIONS ADVISOR CPT-J0702 Celestone 12 mg (Betamethasone) 11:45:31 OPTIONS ADVISOR CPT-95916 Visit 11:39:52 OPTIONS ADVISOR CPT-75169M Sono biophysical pro wo stress test-[place] Only 11:21: 42 OPTIONS ADVISOR CPT-19398 Visit 16:00:50 OPTIONS ADVISOR CPT-41888H Sono biophysical pro wo stress test-[facility] 13:12: 18 OPTIONS ADVISOR CPT-68314 Sono biophysical pro wo stress test 11:17:21 OPTIONS ADVISOR 05/21 CPT-02983 Tdap 7yrs or > 15:22:51 OPTIONS ADVISOR CPT-37516 Immunization Single Admin 15:22:51 OPTIONS ADVISOR CPT-25217 Tdap 7yrs or > 15:09:13 OPTIONS ADVISOR CPT-66299 Visit 14:54:16 OPTIONS ADVISOR CPT-03492 Fluzone Quadrivalent Intramuscular Suspension 0.5 ML 16: 58:58 CDT CPT-63771 Administration single or combination vaccine inc oral 16 :58:58 CDT CPT-44520 Fluzone Thim Free 36mo and older 14:47:39 CDT CPT-78091 Visit 14:47:39 CDT CPT-28562 Sono OB limited 10:30:07 CDT CPT-63709 Visit 10:04:44 CDT CPT-95646 Sono OB comp > 14 weeks 12:50:41 CDT CPT-83654 Visit 12:06:25 CDT CPT-59084 Visit 12:43:15 CDT CPT-10637 Visit 10:06:02 CDT CPT-48061 Spec Collection and Handling Fee 10:00:31 CDT CPT-73761 Visit 10:00:30 CDT CPT-32855 Drug Screen [place] 14:36:13 CDT
--- OUTSIDE RECORDS SUMMARY | 2018-08-28 07:10 | XMS REPORT | Clinical Summary ---
Author Author Admin, E Organization [facility] Address Unknown Phone Unavailable Allergies, [...] other normal Advanced maternal age 859.60 Active aKren Jaramillo MD Elderly multigravida, with current , [...] TAB four tabs PO x 1 METRONIDAZOLE 74727249484 Active Karen Jaramillo MD Active Procedures Code Procedure Name Date Entry Date Standard Description CPT-04773 Spec Collection and Handling Fee 10:00:31 CDT CPT-71894 Visit 10:00:30 CDT CPT-74117 Drug Screen [place] 14:36:13 CDT
--- OUTSIDE RECORDS SUMMARY | 2018-08-28 07:10 | XMS REPORT | Clinical Summary ---
Author Author Admin, E Organization [facility] Address Unknown Phone Unavailable Allergies, Adverse [...] Active Rian Ortega MD Tobacco use disorder Pantomimist well woman exam V72.31 Active Sasha Espitia [...] Status Provider Patient Instruction GUAIFENESIN 600 MG [id number] 1 twice a day as needed for congestion GUAIFENESIN 98174144895 No Longer Active Sasha Espitia APRN Active CYCLOBENZAPRINE HCL 10 MG TABS 1 three times a day as needed for muscle spasm CYCLOBENZAPRINE HCL 31077875706 No Longer Active Sasha Espitia APRN Active SYMBICORT 160-4.5 MCG/ACT AERO 2 puff BID for 10 days BUDESONIDE-FORMOTEROL FUMARATE 21088361442 No Longer Active Rian Ortega MD Active AZITHROMYCIN 250 MG TABS 2 po qd x 1 day, then 1 po qd x 4 days AZITHROMYCIN 10096297960 No Longer Active Carline Best APRN Active CIPRO 500 MG TAB 1 tablet by mouth twice daily CIPROFLOXACIN HCL 38445176064 No Longer Active Tariq Marrero MD Active AZO TABS TABS 2 tabs qd PHENAZOPYRIDINE HCL TABS 20782331096 No Longer Active Tariq Marrero MD Active CIPROFLOXACIN HCL 250 MG ORAL TABS 1 twice a day for bladder infection 07/24 CIPROFLOXACIN HCL 35307046129 No Longer Active Tariq Marrero MD Active SM VITAMIN B12 TR 1000 MCG ORAL CR-TABS 1 tab po daily CYANOCOBALAMIN 25371272324 No Longer Active Nereyda Rodriguez APRN Active CARAFATE 1 GM TAB 1 tab po as needed up to 4 times per day SUCRALFATE 67358423088 No Longer Active Nereyda Rodriguez APRN Active PNV PLUS MULTIVITAMIN 27-1 MG ORAL TABS 1 daily VIT-FE FUMARATE-FA 70926883931 No Longer Active Sasha Espitia APRN Active CHANTIX STARTING MONTH DANILO 0.5 MG X 11 & 1 MG X 42 TABS take as directed 2015 VARENICLINE TARTRATE 62188735949 No Longer Active Sasha Espitia APRN Active CHANTIX 1 MG TABS 1 twice a day to help quit smoking VARENICLINE TARTRATE 80703634232 No Longer Active Sasha Espitia APRN Active OMEPRAZOLE 20 MG CPDR 1 tablet by mouth daily OMEPRAZOLE 91698899443 Active Sasha Espitia APRN Active FLINSTONES GUMMIES OMEGA-3 DHA ORAL CHEW 2 gummies per day PEDIATRIC MULTIPLE VIT-C-FA 76096433327 Active Sasha Espitia APRN Active CLINDAMYCIN HCL 150 MG CAPS 1 four times a day for 1 week CLINDAMYCIN HCL 36864334420 No Longer Active Karen Jaramillo MD Active TRIAMCINOLONE ACETONIDE 0.1 % CREA Apply to affected areas TID for up to 1 week TRIAMCINOLONE ACETONIDE 76126521283 No Longer Active Rian Ortega MD Active ZITHROMAX 1 GM ORAL PACK Take 1 time and recheck lab in 2-3 weeks AZITHROMYCIN 88761663244 No Longer Active Rian Ortega MD Active FLAGYL 500 MG TAB four tabs PO x 1 METRONIDAZOLE 49253445758 No Longer Active Aris Charlton MD Active FLAGYL 500 MG TAB four tabs PO x 1 FLAGYL 500 MG TAB 213543 METRONIDAZOLE Inactive ZITHROMAX 1 GM ORAL PACK Take 1 time and recheck lab in 2-3 weeks ZITHROMAX 1 GM ORAL PACK 938331 AZITHROMYCIN Inactive TRIAMCINOLONE ACETONIDE 0.1 % CREA Apply to affected areas TID for up to 1 week TRIAMCINOLONE ACETONIDE 0.1 % CREA 6873451 TRIAMCINOLONE ACETONIDE Inactive CLINDAMYCIN HCL 150 MG CAPS 1 four times a day for 1 week CLINDAMYCIN HCL 150 MG CAPS 408090 CLINDAMYCIN HCL Inactive CHANTIX 1 MG TABS [...] per day 06/27 CARAFATE 1 GM TAB 725205 SUCRALFATE Inactive SM VITAMIN B12 TR 1000 MCG ORAL CR-TABS 1 tab po daily SM VITAMIN B12 TR 1000 MCG ORAL CR-TABS CYANOCOBALAMIN Inactive CIPROFLOXACIN HCL 250 MG ORAL TABS 1 twice a day for bladder infection 07/24 CIPROFLOXACIN HCL 250 MG ORAL TABS 103777 CIPROFLOXACIN HCL Inactive AZO TABS TABS 2 tabs qd AZO TABS TABS PHENAZOPYRIDINE HCL TABS Inactive SYMBICORT 160-4.5 MCG/ACT AERO 2 puff BID for 10 days SYMBICORT 160-4.5 MCG/ACT AERO BUDESONIDE-FORMOTEROL FUMARATE Inactive CYCLOBENZAPRINE HCL 10 MG TABS 1 three times a day as needed for muscle spasm CYCLOBENZAPRINE HCL 10 MG TABS 142236 CYCLOBENZAPRINE HCL Inactive GUAIFENESIN 600 MG [id number] 1 twice a day as needed for congestion GUAIFENESIN 600 MG [id number] GUAIFENESIN Inactive CIPRO 500 MG TAB 1 tablet by mouth twice daily CIPRO 500 MG TAB 853170 CIPROFLOXACIN HCL Inactive AZITHROMYCIN 250 MG TABS 2 po qd x 1 day, then 1 po qd x 4 days AZITHROMYCIN 250 MG TABS 474781 AZITHROMYCIN Inactive Immunizations Vaccine Administration Date Value [...] BA1C - Chemistry sodium, serum 142 mmol/L 283-189 7355 carbon dioxide, venous blood 32.8 mmol/L 21.0-32.0 [...] ... - Chemistry cholesterol, serum 142 mg/dL 183-697 8091/10/24 triglyceride, serum, fasting 77 mg/dL 30-200 HDL [...] Panel - Chemistry sodium, serum 137 mmol/L 901-933 7244/10/24 carbon dioxide, venous blood 24.4 mmol/L 21.0-32.0 [...] Panel - Chemistry cholesterol, serum 165 mg/dL 183-069 1621 triglyceride, serum, fasting 124 mg/dL 30-200 HDL [...] 30-100 Encounters Code Encounter Date Provider Facility CPT-31521 Level 3 Est. Patient 11:54:40 CDT Rian Ortega MD [facility] CPT-34334 Level 3 Est. Patient 11:17:51 CDT Carline Best [facility] CPT-27050 Level 3 Est. Patient 15:43:38 CDT Tariq Marrero MD [facility] CPT-25113 Level 3 Est. Patient 11:16:27 HEAD RESIDENT Nereyda Rodriguez [facility] CPT-34031 Level 4 Est. Patient 08:56:42 HEAD RESIDENT Sasha Espitia [facility] CPT-11730 Level 3 Est. Patient 16:40:58 CDT Rian Ortega MD [facility] CPT-41903 Level 3 Est. Patient 13:55:16 HEAD RESIDENT Rian Ortega MD [facility] CPT-51477 Level 3 Est. Patient 10:42:52 CDT Corrina Bailon [facility] CPT-70677 Level 3 Est. Patient 11:18:30 CDT Aris Charlton MD [facility] Procedures Code Procedure Name Date Entry Date Standard Description CPT-25584 UA w micro - LAB USE ONLY 13:09:18 HEAD RESIDENT CPT-95839 Urine Culture - LAB USE ONLY 13:09:18 HEAD RESIDENT CPT-43210 Wet Mount - LAB USE ONLY 11:11:39 HEAD RESIDENT CPT-23457 Lipid - LAB USE ONLY 15:05:24 HEAD RESIDENT CPT-23417 PT/INR - LAB USE ONLY 12:14:07 CDT CPT-89204 HGBA1C - LAB USE ONLY 12:14:07 CDT CPT-73232 CMP - LAB USE ONLY 12:14:07 CDT CPT-72578 CBC - LAB USE ONLY 12:14:07 CDT CPT-70953 Venipuncture Draw Fee 12:14:06 CDT CPT-J0702 Celestone 6 mg (Betamethasone) 15:04:45 HEAD RESIDENT CPT-50597 Abx/Therapy Injection 15:04:45 HEAD RESIDENT CPT-J0702 Celestone 12 mg (Betamethasone) 11:45:31 HEAD RESIDENT CPT-45315 Visit 11:39:52 HEAD RESIDENT CPT-39194Y Sono biophysical pro wo stress test-[place] Only 11:21: 42 HEAD RESIDENT CPT-47956 Visit 16:00:50 HEAD RESIDENT CPT-46296O Sono biophysical pro wo stress test-[place] Only 13:12: 18 HEAD RESIDENT CPT-84481 Sono biophysical pro wo stress test 11:17:21 HEAD RESIDENT 05/21 CPT-69687 Tdap 7yrs or > 15:22:51 HEAD RESIDENT CPT-13278 Immunization Single Admin 15:22:51 HEAD RESIDENT CPT-95062 Tdap 7yrs or > 15:09:13 HEAD RESIDENT CPT-68055 Visit 14:54:16 HEAD RESIDENT CPT-56184 Fluzone Quadrivalent Intramuscular Suspension 0.5 ML 16: 58:58 CDT CPT-24689 Administration single or combination vaccine inc oral 16 :58:58 CDT CPT-98213 Fluzone Thim Free 36mo and older 14:47:39 CDT CPT-29048 Visit 14:47:39 CDT CPT-42684 Sono OB limited 10:30:07 CDT CPT-38103 Visit 10:04:44 CDT CPT-91126 Sono OB comp > 14 weeks 12:50:41 CDT CPT-92615 Visit 12:06:25 CDT CPT-84784 Visit 12:43:15 CDT CPT-76609 Visit 10:06:02 CDT CPT-09560 Spec Collection and Handling Fee 10:00:31 CDT CPT-77327 Visit 10:00:30 CDT CPT-92595 Drug Screen [place] 14:36:13 CDT
--- OUTSIDE RECORDS SUMMARY | 2018-08-28 07:11 | XMS REPORT | Clinical Summary ---
Author Author Admin, [facility] Organization [facility] Address Unknown Phone Unavailable Allergies, Adverse [...] Active Rian Ortega MD Tobacco use disorder Cognos Architect well woman exam V72.31 Active Sasha Espitia POTATO CHIP SACKING MACHINE OPERATOR Routine gynecological examination Bariatric operative procedure [...] , second trimester ICD-649.13 10/31 Inactive Rian Oretga MD 20 weeks gestation of ICD-V28.9 Inactive [...] MG ORAL TABS 1 daily VIT-FE FUMARATE-FA 92568349655 No Longer Active Sasha Espitia APRN Active CHANTIX STARTING MONTH DANILO 0.5 MG X 11 & 1 MG X 42 TABS take as directed 2015 VARENICLINE TARTRATE 07874367381 No Longer Active Sasha Espitia APRN Active CHANTIX 1 MG TABS 1 twice a day to help quit smoking VARENICLINE TARTRATE 96576221789 No Longer Active Sasha Omkar POTATO CHIP SACKING MACHINE OPERATOR Active OMEPRAZOLE 20 MG CPDR 1 tablet by mouth daily OMEPRAZOLE 46908621752 Active Sasha Espitia POTATO CHIP SACKING MACHINE OPERATOR Active CARAFATE 1 GM TAB 1 tab po as needed up to 4 times per day SUCRALFATE 27944385023 Active Sasha Espitia POTATO CHIP SACKING MACHINE OPERATOR Active FLINSTONES GUMMIES OMEGA-3 DHA ORAL CHEW 2 gummies per day PEDIATRIC MULTIPLE VIT-C-FA 72728057490 Active Sasha Espitia POTATO CHIP SACKING MACHINE OPERATOR Active SM VITAMIN B12 TR 1000 MCG ORAL CR-TABS 1 tab po daily CYANOCOBALAMIN 00116255945 Active Sasha Espitia BETO Active CLINDAMYCIN HCL 150 MG CAPS 1 four times a day for 1 week CLINDAMYCIN HCL 17271826345 No Longer Active Karen Jaramillo MD Active TRIAMCINOLONE ACETONIDE 0.1 % CREA Apply to affected areas TID for up to 1 week TRIAMCINOLONE ACETONIDE 10830594825 No Longer Active Rian Ortega MD Active ZITHROMAX 1 GM ORAL PACK Take 1 time and recheck lab in 2-3 weeks AZITHROMYCIN 85330659928 No Longer Active Rian Ortega MD Active FLAGYL 500 MG TAB four tabs PO x 1 METRONIDAZOLE 91647140210 No Longer Active Aris Charlton MD Active FLAGYL 500 MG TAB four tabs PO x 1 FLAGYL 500 MG TAB 526287 METRONIDAZOLE Inactive ZITHROMAX 1 GM ORAL PACK Take 1 time and recheck lab in 2-3 weeks ZITHROMAX 1 GM ORAL PACK 612144 AZITHROMYCIN Inactive TRIAMCINOLONE ACETONIDE 0.1 % CREA Apply to affected areas TID for up to 1 week TRIAMCINOLONE ACETONIDE 0.1 % CREA 1853925 TRIAMCINOLONE ACETONIDE Inactive CLINDAMYCIN HCL 150 MG CAPS 1 four times a day for 1 week CLINDAMYCIN HCL 150 MG CAPS 339736 CLINDAMYCIN HCL Inactive CHANTIX 1 MG TABS [...] HGBA1C - Chemistry sodium, serum 142 mmol/L 077-498 4036 carbon dioxide, venous blood 32.8 mmol/L 21.0-32.0 [...] Panel - Chemistry cholesterol, serum 165 mg/dL 067-085 5557 triglyceride, serum, fasting 124 mg/dL 30-200 HDL [...] N Encounters Code Encounter Date Provider Facility CPT-12582 Level 3 Est. Patient 16:40:58 CDT Rian Ortega MD [facility] CPT-87006 Level 3 Est. Patient 13:55:16 COMMUNITY HEALTH EDUCATOR Rian Ortega MD [facility] CPT-97887 Level 3 Est. Patient 10:42:52 CDT Corrina Bailon APRN [facility] CPT-95992 Level 3 Est. Patient 11:18:30 CDT Aris Charlton MD [facility] Procedures Code Procedure Name Date Entry Date Standard Description CPT-81492 Wet Mount - LAB USE ONLY 11:11:39 COMMUNITY HEALTH EDUCATOR CPT-31717 Lipid - LAB USE ONLY 15:05:24 COMMUNITY HEALTH EDUCATOR CPT-53536 PT/INR - LAB USE ONLY 12:14:07 CDT CPT-60553 HGBA1C - LAB USE ONLY 12:14:07 CDT CPT-33746 CMP - LAB USE ONLY 12:14:07 CDT CPT-34370 CBC - LAB USE ONLY 12:14:07 CDT CPT-21501 Venipuncture Draw Fee 12:14:06 CDT CPT-J0702 Celestone 6 mg (Betamethasone) 15:04:45 COMMUNITY HEALTH EDUCATOR CPT-81950 Abx/Therapy Injection 15:04:45 COMMUNITY HEALTH EDUCATOR CPT-J0702 Celestone 12 mg (Betamethasone) 11:45:31 COMMUNITY HEALTH EDUCATOR CPT-04654 Visit 11:39:52 COMMUNITY HEALTH EDUCATOR CPT-42630A Sono biophysical pro wo stress test-[facility] 11:21: 42 COMMUNITY HEALTH EDUCATOR CPT-59948 Visit 16:00:50 COMMUNITY HEALTH EDUCATOR CPT-67409G Sono biophysical pro wo stress test-[facility] 13:12: 18 COMMUNITY HEALTH EDUCATOR CPT-19853 Sono biophysical pro wo stress test 11:17:21 COMMUNITY HEALTH EDUCATOR 05/21 CPT-93769 Tdap 7yrs or > 15:22:51 COMMUNITY HEALTH EDUCATOR CPT-40030 Immunization Single Admin 15:22:51 COMMUNITY HEALTH EDUCATOR CPT-08350 Tdap 7yrs or > 15:09:13 COMMUNITY HEALTH EDUCATOR CPT-42700 Visit 14:54:16 COMMUNITY HEALTH EDUCATOR CPT-15837 Fluzone Quadrivalent Intramuscular Suspension 0.5 ML 16: 58:58 CDT CPT-66061 Administration single or combination vaccine inc oral 16 :58:58 CDT CPT-85932 Fluzone Thim Free 36mo and older 14:47:39 CDT CPT-75931 Visit 14:47:39 CDT CPT-46533 Sono OB limited 10:30:07 CDT CPT-27559 Visit 10:04:44 CDT CPT-55573 Sono OB comp > 14 weeks 12:50:41 CDT CPT-12485 Visit 12:06:25 CDT CPT-40263 Visit 12:43:15 CDT CPT-51307 Visit 10:06:02 CDT CPT-40159 Spec Collection and Handling Fee 10:00:31 CDT CPT-60840 Visit 10:00:30 CDT CPT-08749 Drug Screen [place]isel 14:36:13 CDT
--- OUTSIDE RECORDS SUMMARY | 2018-08-28 07:12 | XMS REPORT | Clinical Summary ---
Author Author Admin, [facility] Organization [facility] Address Unknown Phone Unavailable Allergies, Adverse Reactions, [...] Active Rian Ortega MD Tobacco use disorder Tear Down Matcher well woman exam V72.31 Active Sasha Espitia MECHANIC WELDER Routine gynecological examination Bariatric operative procedure V45.86 [...] MG ORAL TABS 1 daily VIT-FE FUMARATE-FA 38085341161 No Longer Active Sasha Espitia APRN Active CHANTIX STARTING MONTH DANILO 0.5 MG X 11 & 1 MG X 42 TABS take as directed 2015 VARENICLINE TARTRATE 21338205907 No Longer Active Sasha Espitia APRN Active CHANTIX 1 MG TABS 1 twice a day to help quit smoking VARENICLINE TARTRATE 99898047265 No Longer Active Sasha Omkar MECHANIC WELDER Active OMEPRAZOLE 20 MG CPDR 1 tablet by mouth daily OMEPRAZOLE 83155310555 Active Sasha Espitia APRN Active CARAFATE 1 GM TAB 1 tab po as needed up to 4 times per day SUCRALFATE 39603528760 Active Sasha Espitia MECHANIC WELDER Active FLINSTONES GUMMIES OMEGA-3 DHA ORAL CHEW 2 gummies per day PEDIATRIC MULTIPLE VIT-C-FA 76060363882 Active Sasha Espitia APRN Active SM VITAMIN B12 TR 1000 MCG ORAL CR-TABS 1 tab po daily CYANOCOBALAMIN 10800919301 Active Sasha Espitia MECHANIC WELDER Active CLINDAMYCIN HCL 150 MG CAPS 1 four times a day for 1 week CLINDAMYCIN HCL 33634420767 No Longer Active Karen Jaramillo MD Active TRIAMCINOLONE ACETONIDE 0.1 % CREA Apply to affected areas TID for up to 1 week TRIAMCINOLONE ACETONIDE 08958165010 No Longer Active Rian Ortega MD Active ZITHROMAX 1 GM ORAL PACK Take 1 time and recheck lab in 2-3 weeks AZITHROMYCIN 28697344633 No Longer Active Rian Ortega MD Active FLAGYL 500 MG TAB four tabs PO x 1 METRONIDAZOLE 58571817459 No Longer Active Aris Charlton MD Active FLAGYL 500 MG TAB four tabs PO x 1 FLAGYL 500 MG TAB 671221 METRONIDAZOLE Inactive ZITHROMAX 1 GM ORAL PACK Take 1 time and recheck lab in 2-3 weeks ZITHROMAX 1 GM ORAL PACK 255164 AZITHROMYCIN Inactive TRIAMCINOLONE ACETONIDE 0.1 % CREA Apply to affected areas TID for up to 1 week TRIAMCINOLONE ACETONIDE 0.1 % CREA 0721778 TRIAMCINOLONE ACETONIDE Inactive CLINDAMYCIN HCL 150 MG CAPS 1 four times a day for 1 week CLINDAMYCIN HCL 150 MG CAPS 622538 CLINDAMYCIN HCL Inactive CHANTIX 1 MG TABS [...] HGBA1C - Chemistry sodium, serum 142 mmol/L [phone] carbon dioxide, venous blood 32.8 mmol/L 21.0-32.0 [...] Panel - Chemistry cholesterol, serum 165 mg/dL [phone] triglyceride, serum, fasting 124 mg/dL 30-200 HDL cholesterol, serum 47 mg/dL 32-96 LDL cholesterol, serum 93 mg/dL 0-130 Lab Report: Prothrombin Time - Coagulation prothrombin time (patient) 12.0 SECS s 11.1-13.4 international normalized ratio (INR) 1.0 1.0-3.5 Office Visit: follow up ob - Urinalysis protein, urine, semiquantitative (dipstick) Tr glucose, urine, semiquantitative N nitrite, urine, semiquantitative N Encounters Code Encounter Date Provider Facility CPT-86826 Level 3 Est. Patient 16:40:58 CDT Rian Ortega MD [facility] CPT-92432 Level 3 Est. Patient 13:55:16 CHLORINE CELLS OPERATOR Rian Ortega MD [facility] CPT-18818 Level 3 Est. Patient 10:42:52 CDT Corrina Uvaldo PÉREZ [facility] CPT-57875 Level 3 Est. Patient 11:18:30 CDT Aris Charlton MD [facility] Procedures Code Procedure Name Date Entry Date Standard Description CPT-21153 PT/INR - LAB USE ONLY 12:14:07 CDT CPT-84769 HGBA1C - LAB USE ONLY 12:14:07 CDT CPT-22586 CMP - LAB USE ONLY 12:14:07 CDT CPT-87003 CBC - LAB USE ONLY 12:14:07 CDT CPT-11602 Venipuncture Draw Fee 12:14:06 CDT CPT-J0702 Celestone 6 mg (Betamethasone) 15:04:45 CHLORINE CELLS OPERATOR CPT-28990 Abx/Therapy Injection 15:04:45 CHLORINE CELLS OPERATOR CPT-J0702 Celestone 12 mg (Betamethasone) 11:45:31 CHLORINE CELLS OPERATOR CPT-17714 Visit 11:39:52 CHLORINE CELLS OPERATOR CPT-65162R Sono biophysical pro wo stress test-[place] Only 11:21: 42 CHLORINE CELLS OPERATOR CPT-11340 Visit 16:00:50 CHLORINE CELLS OPERATOR CPT-76604U Sono biophysical pro wo stress test-[facility] 13:12: 18 CHLORINE CELLS OPERATOR CPT-36129 Sono biophysical pro wo stress test 11:17:21 CHLORINE CELLS OPERATOR 05/21 CPT-71735 Tdap 7yrs or > 15:22:51 CHLORINE CELLS OPERATOR CPT-26786 Immunization Single Admin 15:22:51 CHLORINE CELLS OPERATOR CPT-59296 Tdap 7yrs or > 15:09:13 CHLORINE CELLS OPERATOR CPT-75484 Visit 14:54:16 CHLORINE CELLS OPERATOR CPT-88980 Fluzone Quadrivalent Intramuscular Suspension 0.5 ML 16: 58:58 CDT CPT-78053 Administration single or combination vaccine inc oral 16 :58:58 CDT CPT-49961 Fluzone Thim Free 36mo and older 14:47:39 CDT CPT-62828 Visit 14:47:39 CDT CPT-28980 Sono OB limited 10:30:07 CDT CPT-47684 Visit 10:04:44 CDT CPT-27184 Sono OB comp > 14 weeks 12:50:41 CDT CPT-18067 Visit 12:06:25 CDT CPT-33833 Visit 12:43:15 CDT CPT-18456 Visit 10:06:02 CDT CPT-07084 Spec Collection and Handling Fee 10:00:31 CDT CPT-71573 Visit 10:00:30 CDT CPT-38607 Drug Screen Grisel 14:36:13 CDT
--- OUTSIDE RECORDS SUMMARY | 2018-08-28 07:12 | XMS REPORT | Clinical Summary ---
Author Author Admin, [facility] Organization [facility] Address Unknown Phone Unavailable Allergies, Adverse Reactions, [...] Active Rian Ortega MD Tobacco use disorder Machine Hamper Maker well woman exam V72.31 Active Sasha Espitia [...] day for bladder infection 07/24 CIPROFLOXACIN HCL 78131996113 Active Nereyda Rodriguez APRN Active AZO TABS TABS 2 tabs qd PHENAZOPYRIDINE HCL TABS 17301923789 Active Nereyda Rodriguez APRN Active SM VITAMIN B12 TR 1000 MCG ORAL CR-TABS 1 tab po daily CYANOCOBALAMIN 63779816802 No Longer Active Nereyda Rodriguez APRN Active CARAFATE 1 GM TAB 1 tab po as needed up to 4 times per day SUCRALFATE 51184573769 No Longer Active Nereyda Rodriguez APRN Active PNV PLUS MULTIVITAMIN 27-1 MG ORAL TABS 1 daily VIT-FE FUMARATE-FA 42944078915 No Longer Active Sasha Espitia APRN Active CHANTIX STARTING MONTH DANILO 0.5 MG X 11 & 1 MG X 42 TABS take as directed 2015 VARENICLINE TARTRATE 18284130553 No Longer Active Sasha Espitia APRN Active CHANTIX 1 MG TABS 1 twice a day to help quit smoking VARENICLINE TARTRATE 22894128231 No Longer Active Sasha Espitia APRN Active OMEPRAZOLE 20 MG CPDR 1 tablet by mouth daily OMEPRAZOLE 13152415165 Active Sasha Espitia APRN Active FLINSTONES GUMMIES OMEGA-3 DHA ORAL CHEW 2 gummies per day PEDIATRIC MULTIPLE VIT-C-FA 16708626186 Active Sasha Espitia APRN Active CLINDAMYCIN HCL 150 MG CAPS 1 four times a day for 1 week CLINDAMYCIN HCL 58725462789 No Longer Active Karen Jaramillo MD Active TRIAMCINOLONE ACETONIDE 0.1 % CREA Apply to affected areas TID for up to 1 week TRIAMCINOLONE ACETONIDE 07855777549 No Longer Active Rian Ortega MD Active ZITHROMAX 1 GM ORAL PACK Take 1 time and recheck lab in 2-3 weeks AZITHROMYCIN 18842797381 No Longer Active Rian Ortega MD Active FLAGYL 500 MG TAB four tabs PO x 1 METRONIDAZOLE 04888228434 No Longer Active Aris Charlton MD Active FLAGYL 500 MG TAB four tabs PO x 1 FLAGYL 500 MG TAB 291104 METRONIDAZOLE Inactive ZITHROMAX 1 GM ORAL PACK Take 1 time and recheck lab in 2-3 weeks ZITHROMAX 1 GM ORAL PACK 776150 AZITHROMYCIN Inactive TRIAMCINOLONE ACETONIDE 0.1 % CREA Apply to affected areas TID for up to 1 week TRIAMCINOLONE ACETONIDE 0.1 % CREA 7239101 TRIAMCINOLONE ACETONIDE Inactive CLINDAMYCIN HCL 150 MG CAPS 1 four times a day for 1 week CLINDAMYCIN HCL 150 MG CAPS 831462 CLINDAMYCIN HCL Inactive CHANTIX 1 MG TABS [...] per day 06/27 CARAFATE 1 GM TAB 930920 SUCRALFATE Inactive SM VITAMIN B12 TR 1000 [...] HGBA1C - Chemistry sodium, serum 142 mmol/L 147-329 2035 carbon dioxide, venous blood 32.8 mmol/L 21.0-32.0 [...] Panel - Chemistry cholesterol, serum 165 mg/dL [phone] triglyceride, serum, fasting 124 mg/dL 30-200 HDL cholesterol, serum 47 mg/dL 32-96 LDL cholesterol, serum 93 mg/dL 0-130 Lab Report: Prothrombin Time - Coagulation prothrombin time (patient) 12.0 SECS s 11.1-13.4 international normalized ratio (INR) 1.0 1.0-3.5 Lab Report: VITAMIN B12/FOLATE, SERUM PANE, FERRITIN, VITAMIN D, 25-HYDR ... - Chemistry vitamin D 25-hydroxy, serum 32 ng/mL 30-100 Encounters Code Encounter Date Provider Facility CPT-68279 Level 3 Est. Patient 11:16:27 INTERPRETER TRANSLATOR Nereyda Rodriguez [facility] CPT-93994 Level 4 Est. Patient 08:56:42 INTERPRETER TRANSLATOR Sasha Espitia [facility] CPT-95970 Level 3 Est. Patient 16:40:58 CDT Rian Ortega MD [facility] CPT-38690 Level 3 Est. Patient 13:55:16 INTERPRETER TRANSLATOR Rian Ortega MD [facility] CPT-00534 Level 3 Est. Patient 10:42:52 CDT Corrina Angelesvalentine PÉREZ [facility] CPT-78482 Level 3 Est. Patient 11:18:30 CDT Aris Charlton MD [facility] Procedures Code Procedure Name Date Entry Date Standard Description CPT-60469 UA w micro - LAB USE ONLY 13:09:18 INTERPRETER TRANSLATOR CPT-68688 Urine Culture - LAB USE ONLY 13:09:18 INTERPRETER TRANSLATOR CPT-72099 Wet Mount - LAB USE ONLY 11:11:39 INTERPRETER TRANSLATOR CPT-09873 Lipid - LAB USE ONLY 15:05:24 INTERPRETER TRANSLATOR CPT-79252 PT/INR - LAB USE ONLY 12:14:07 CDT CPT-84340 HGBA1C - LAB USE ONLY 12:14:07 CDT CPT-59163 CMP - LAB USE ONLY 12:14:07 CDT CPT-50535 CBC - LAB USE ONLY 12:14:07 CDT CPT-17631 Venipuncture Draw Fee 12:14:06 CDT CPT-J0702 Celestone 6 mg (Betamethasone) 15:04:45 INTERPRETER TRANSLATOR CPT-15215 Abx/Therapy Injection 15:04:45 INTERPRETER TRANSLATOR CPT-J0702 Celestone 12 mg (Betamethasone) 11:45:31 INTERPRETER TRANSLATOR CPT-78278 Visit 11:39:52 INTERPRETER TRANSLATOR CPT-18195R Sono biophysical pro wo stress test-[place] Only 11:21: 42 INTERPRETER TRANSLATOR CPT-40422 Visit 16:00:50 INTERPRETER TRANSLATOR CPT-86391J Sono biophysical pro wo stress test-[place] Only 13:12: 18 INTERPRETER TRANSLATOR CPT-91496 Sono biophysical pro wo stress test 11:17:21 INTERPRETER TRANSLATOR 05/21 CPT-93611 Tdap 7yrs or > 15:22:51 INTERPRETER TRANSLATOR CPT-89215 Immunization Single Admin 15:22:51 INTERPRETER TRANSLATOR CPT-53688 Tdap 7yrs or > 15:09:13 INTERPRETER TRANSLATOR CPT-43754 Visit 14:54:16 INTERPRETER TRANSLATOR CPT-95695 Fluzone Quadrivalent Intramuscular Suspension 0.5 ML 16: 58:58 CDT CPT-01502 Administration single or combination vaccine inc oral 16 :58:58 CDT CPT-90772 Fluzone Thim Free 36mo and older 14:47:39 CDT CPT-93483 Visit 14:47:39 CDT CPT-98084 Sono OB limited 10:30:07 CDT CPT-84047 Visit 10:04:44 CDT CPT-53533 Sono OB comp > 14 weeks 12:50:41 CDT CPT-64083 Visit 12:06:25 CDT CPT-59962 Visit 12:43:15 CDT CPT-42197 Visit 10:06:02 CDT CPT-45556 Spec Collection and Handling Fee 10:00:31 CDT CPT-54013 Visit 10:00:30 CDT CPT-11971 Drug Screen [place] 14:36:13 CDT
--- OUTSIDE RECORDS SUMMARY | 2018-08-28 07:13 | XMS REPORT | Clinical Summary ---
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 Active Sasha Espitia [...] po qd x 4 days 07/27 AZITHROMYCIN 63262604589 No Longer Active Carline Best APRN Active GUAIFENESIN ER 600 MG ORAL TABLET EXTENDED RELEASE 12 HOUR 1 twice a day as needed for congestion GUAIFENESIN 95390095858 No Longer Active Sasha Espitia APRN Active CYCLOBENZAPRINE HCL 10 MG ORAL TABLET 1 three times a day as needed for muscle spasm CYCLOBENZAPRINE HCL 84447301295 No Longer Active Sasha Espitia APRN Active SYMBICORT 160-4.5 MCG/ACT INHALATION AEROSOL 2 puff BID for 10 days BUDESONIDE-FORMOTEROL FUMARATE 69592482409 No Longer Active Rian Ortega MD Active AZITHROMYCIN 250 MG ORAL TABLET 2 po qd x 1 day, then 1 po qd x 4 days 02/15 AZITHROMYCIN 85625252736 No Longer Active Carline Best APRN Active CIPRO 500 MG ORAL TABLET 1 tablet by mouth twice daily CIPROFLOXACIN HCL 40883834642 No Longer Active Tariq Marrero MD Active AZO TABS TABLET 2 tabs qd PHENAZOPYRIDINE HCL TABS 33571136022 No Longer Active Tariq Marrero MD Active CIPROFLOXACIN HCL 250 MG ORAL TABLET 1 twice a day for bladder infection 2016 CIPROFLOXACIN HCL 88262048868 No Longer Active Tariq Marrero MD Active SM VITAMIN B12 TR 1000 MCG ORAL TABLET EXTENDED RELEASE 1 tab po daily 04/24 CYANOCOBALAMIN 09049299489 No Longer Active Nereyda Rodriguez APRN Active CARAFATE 1 GM ORAL TABLET 1 tab po as needed up to 4 times per day SUCRALFATE 46136059763 No Longer Active Nereyda Rodriguez APRN Active PNV PLUS MULTIVITAMIN 27-1 MG ORAL TABLET 1 daily 04/24 VIT-FE FUMARATE-FA 01479348542 No Longer Active Sasha Espitia APRN Active CHANTIX STARTING MONTH DANILO 0.5 MG X 11 & 1 MG X 42 ORAL TABLET take as directed VARENICLINE TARTRATE 18166035150 No Longer Active Sasha Espitia APRN Active CHANTIX 1 MG ORAL TABLET 1 twice a day to help quit smoking 04/24 VARENICLINE TARTRATE 13476983964 No Longer Active Sasha Espitia APRN Active OMEPRAZOLE 20 MG ORAL CAPSULE DELAYED RELEASE 1 tablet by mouth daily OMEPRAZOLE 64610982179 Active Sasha Espitia APRN Active FLINSTONES GUMMIES OMEGA-3 DHA ORAL TABLET CHEWABLE 2 gummies per day PEDIATRIC MULTIPLE VIT-C-FA 72117416446 Active Sasha Espitia APRN Active CLINDAMYCIN HCL 150 MG ORAL CAPSULE 1 four times a day for 1 week CLINDAMYCIN HCL 13154747212 No Longer Active Karen Jaramillo MD Active TRIAMCINOLONE ACETONIDE 0.1 % EXTERNAL CREAM Apply to affected areas TID for up to 1 week TRIAMCINOLONE ACETONIDE 26228278988 No Longer Active Rian Ortega MD Active ZITHROMAX 1 GM ORAL PACKET Take 1 time and recheck lab in 2-3 weeks AZITHROMYCIN 05341008996 No Longer Active Rian Ortega MD Active FLAGYL 500 MG ORAL TABLET four tabs PO x 1 METRONIDAZOLE 94034520713 No Longer Active Aris Charlton MD Active FLAGYL 500 MG ORAL TABLET four tabs PO x 1 FLAGYL 500 MG ORAL TABLET 740258 METRONIDAZOLE Inactive ZITHROMAX 1 GM ORAL PACKET Take 1 time and recheck lab in 2-3 weeks ZITHROMAX 1 GM ORAL PACKET 000073 AZITHROMYCIN Inactive TRIAMCINOLONE ACETONIDE 0.1 % EXTERNAL CREAM Apply to affected areas TID for up to 1 week TRIAMCINOLONE ACETONIDE 0.1 % EXTERNAL CREAM 1881642 TRIAMCINOLONE ACETONIDE Inactive CLINDAMYCIN HCL 150 MG ORAL CAPSULE 1 four times a day for 1 week CLINDAMYCIN HCL 150 MG ORAL CAPSULE 005622 CLINDAMYCIN HCL Inactive CHANTIX 1 MG ORAL [...] per day CARAFATE 1 GM ORAL TABLET 297775 SUCRALFATE Inactive SM VITAMIN B12 TR 1000 MCG ORAL TABLET EXTENDED RELEASE 1 tab po daily 04/24 SM VITAMIN B12 TR 1000 MCG ORAL TABLET EXTENDED RELEASE CYANOCOBALAMIN Inactive CIPROFLOXACIN HCL 250 MG ORAL TABLET 1 twice a day for bladder infection 2016 CIPROFLOXACIN HCL 250 MG ORAL TABLET 666321 CIPROFLOXACIN HCL Inactive AZO TABS TABLET 2 tabs qd AZO TABS TABLET PHENAZOPYRIDINE HCL TABS Inactive SYMBICORT 160-4.5 MCG/ACT INHALATION AEROSOL 2 puff BID for 10 days SYMBICORT 160-4.5 MCG/ACT INHALATION AEROSOL BUDESONIDE- FORMOTEROL FUMARATE Inactive CYCLOBENZAPRINE HCL 10 MG ORAL TABLET 1 three times a day as needed for muscle spasm CYCLOBENZAPRINE HCL 10 MG ORAL TABLET 029903 CYCLOBENZAPRINE HCL Inactive GUAIFENESIN ER 600 MG ORAL TABLET EXTENDED RELEASE 12 HOUR 1 twice a day as needed for congestion GUAIFENESIN ER 600 MG ORAL TABLET EXTENDED RELEASE 12 HOUR GUAIFENESIN Inactive CIPRO 500 MG ORAL TABLET 1 tablet by mouth twice daily CIPRO 500 MG ORAL TABLET 857543 CIPROFLOXACIN HCL Inactive AZITHROMYCIN 250 MG ORAL TABLET 2 po qd x 1 day, then 1 po qd x 4 days 02/15 AZITHROMYCIN 250 MG ORAL TABLET 984832 AZITHROMYCIN Inactive AZITHROMYCIN 250 MG ORAL TABLET 2 po qd x 1 day, then 1 po qd x 4 days 07/27 AZITHROMYCIN 250 MG ORAL TABLET 285633 AZITHROMYCIN Inactive Immunizations Vaccine Administration Date Value [...] ... - Chemistry cholesterol, serum 142 mg/dL 761-313 7707/10/24 triglyceride, serum, fasting 77 mg/dL 30-200 HDL [...] Panel - Chemistry sodium, serum 137 mmol/L 874-199 4073/10/24 carbon dioxide, venous blood 24.4 mmol/L 21.0-32.0 [...] Negative;Positive Encounters Code Encounter Date Provider Facility CPT-85183 Level 3 Est. Patient 11:06:09 MARINE PIPE WELDER Carline Best [facility] CPT-93510 Level 3 Est. Patient 15:59:13 MARINE PIPE WELDER Carline Best [facility] CPT-70839 Employment/ICC Exam 15:03:09 MARINE PIPE WELDER Sasha Espitia [facility] CPT-96574 Level 3 Est. Patient 11:54:40 CDT Rian Ortega MD [facility] CPT-99300 Level 3 Est. Patient 11:17:51 CDT Carline Best [facility] CPT-11450 Level 3 Est. Patient 15:43:38 CDT Tariq Marrero MD [facility] CPT-58167 Level 3 Est. Patient 11:16:27 MARINE PIPE WELDER Nereyda Rodriguez [facility] CPT-08705 Level 4 Est. Patient 08:56:42 MARINE PIPE WELDER Sasha Espitia [facility] CPT-02627 Level 3 Est. Patient 16:40:58 CDT Rian Ortega MD [facility] CPT-91269 Level 3 Est. Patient 13:55:16 MARINE PIPE WELDER Rian Ortega MD [facility] CPT-14895 Level 3 Est. Patient 10:42:52 CDT Corrina Bailon [facility] CPT-17592 Level 3 Est. Patient 11:18:30 CDT Aris Charlton MD [facility] Procedures Code Procedure Name Date Entry Date Standard Description CPT-99282 UA w micro - LAB USE ONLY 13:09:18 MARINE PIPE WELDER CPT-49150 Urine Culture - LAB USE ONLY 13:09:18 MARINE PIPE WELDER CPT-06385 Wet Mount - LAB USE ONLY 11:11:39 MARINE PIPE WELDER CPT-25836 Lipid - LAB USE ONLY 15:05:24 MARINE PIPE WELDER CPT-30771 PT/INR - LAB USE ONLY 12:14:07 CDT CPT-36243 HGBA1C - LAB USE ONLY 12:14:07 CDT CPT-57459 CMP - LAB USE ONLY 12:14:07 CDT CPT-09464 CBC - LAB USE ONLY 12:14:07 CDT CPT-29778 Venipuncture Draw Fee 12:14:06 CDT CPT-J0702 Celestone 6 mg (Betamethasone) 15:04:45 MARINE PIPE WELDER CPT-23981 Abx/Therapy Injection 15:04:45 MARINE PIPE WELDER CPT-J0702 Celestone 12 mg (Betamethasone) 11:45:31 MARINE PIPE WELDER CPT-14073 Visit 11:39:52 MARINE PIPE WELDER CPT-44302K Sono biophysical pro wo stress test[facility] Only 11:21: 42 MARINE PIPE WELDER CPT-36281 Visit 16:00:50 MARINE PIPE WELDER CPT-84931M [employer] biophysical pro wo stress test[facility] Only 13:12: 18 MARINE PIPE WELDER CPT-21620 Sono biophysical pro wo stress test 11:17:21 MARINE PIPE WELDER 05/21 CPT-66899 Tdap 7yrs or > 15:22:51 MARINE PIPE WELDER CPT-93897 Immunization Single Admin 15:22:51 MARINE PIPE WELDER CPT-03419 Tdap 7yrs or > 15:09:13 MARINE PIPE WELDER CPT-55375 Visit 14:54:16 MARINE PIPE WELDER CPT-66634 Fluzone Quadrivalent Intramuscular Suspension 0.5 ML 16: 58:58 CDT CPT-75784 Administration single or combination vaccine inc oral 16 :58:58 CDT CPT-89795 Fluzone Thim Free 36mo and older 14:47:39 CDT CPT-46218 Visit 14:47:39 CDT CPT-30303 Sono OB limited 10:30:07 CDT CPT-52425 Visit 10:04:44 CDT CPT-76908 Sono OB comp > 14 weeks 12:50:41 CDT CPT-78083 Visit 12:06:25 CDT CPT-36106 Visit 12:43:15 CDT CPT-89830 Visit 10:06:02 CDT CPT-52866 Spec Collection and Handling Fee 10:00:31 CDT CPT-01996 Visit 10:00:30 CDT CPT-16778 Drug Screen [place]isel 14:36:13 CDT
--- OUTSIDE RECORDS SUMMARY | 2018-08-28 07:14 | XMS REPORT | Clinical Summary ---
Author Author Admin, [facility] Organization 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 Sasha [...] Deepika RITCHIE Low lying placenta ICD-762.2 Inactive Rain Ortega MD 28 weeks gestation of ICD-V28.9 Inactive Rian Ortega MD 29 weeks gestation of ICD-V28.9 Inactive Deeipka RITCHIE Cellulitis ICD-682.9 Inactive Rian Ortega MD Abscess, skin ICD-682.9 Inactive Rian Ortega MD 30 weeks gestation of ICD-V28.9 Inactive Deepika MCQUEENT 31 weeks gestation of ICD-V28.9 Inactive Deepika RITCHIE Medication List Medication Instructions Start Date Stop Date Generic Name NDC Status Provider Patient Instruction CIPROFLOXACIN HCL 250 MG ORAL TABS 1 twice a day for bladder infection 07/24 CIPROFLOXACIN HCL 88549852480 Active Nereyda Rodriguez APRN Active AZO TABS TABS 2 tabs qd PHENAZOPYRIDINE HCL TABS 57315128732 Active Nereyda Rodriguez APRN Active SM VITAMIN B12 TR 1000 MCG ORAL CR-TABS 1 tab po daily CYANOCOBALAMIN 57748754182 No Longer Active Nereyda Rodriguez APRN Active CARAFATE 1 GM TAB 1 tab po as needed up to 4 times per day SUCRALFATE 83852410163 No Longer Active Nereyda Rodriguez APRN Active PNV PLUS MULTIVITAMIN 27-1 MG ORAL TABS 1 daily VIT-FE FUMARATE-FA 78624432635 No Longer Active Sasha Espitia APRN Active CHANTIX STARTING MONTH DANILO 0.5 MG X 11 & 1 MG X 42 TABS take as directed 2015 VARENICLINE TARTRATE 60256653303 No Longer Active Sasha Espitia APRN Active CHANTIX 1 MG TABS 1 twice a day to help quit smoking VARENICLINE TARTRATE 70376195316 No Longer Active Sasha Espitia APRN Active OMEPRAZOLE 20 MG CPDR 1 tablet by mouth daily OMEPRAZOLE 41505303820 Active Sasha Espitia APRN Active FLINSTONES GUMMIES OMEGA-3 DHA ORAL CHEW 2 gummies per day PEDIATRIC MULTIPLE VIT-C-FA 71125936724 Active Sasha Espitia APRN Active CLINDAMYCIN HCL 150 MG CAPS 1 four times a day for 1 week CLINDAMYCIN HCL 24104615807 No Longer Active Karen Jaramillo MD Active TRIAMCINOLONE ACETONIDE 0.1 % CREA Apply to affected areas TID for up to 1 week TRIAMCINOLONE ACETONIDE 47843610619 No Longer Active Rian Ortega MD Active ZITHROMAX 1 GM ORAL PACK Take 1 time and recheck lab in 2-3 weeks AZITHROMYCIN 60145835289 No Longer Active Rian Ortega MD Active FLAGYL 500 MG TAB four tabs PO x 1 METRONIDAZOLE 44195017199 No Longer Active Aris Charlton MD Active FLAGYL 500 MG TAB four tabs PO x 1 FLAGYL 500 MG TAB 142821 METRONIDAZOLE Inactive ZITHROMAX 1 GM ORAL PACK Take 1 time and recheck lab in 2-3 weeks ZITHROMAX 1 GM ORAL PACK 978727 AZITHROMYCIN Inactive TRIAMCINOLONE ACETONIDE 0.1 % CREA Apply to affected areas TID for up to 1 week TRIAMCINOLONE ACETONIDE 0.1 % CREA 4529590 TRIAMCINOLONE ACETONIDE Inactive CLINDAMYCIN HCL 150 MG CAPS 1 four times a day for 1 week CLINDAMYCIN HCL 150 MG CAPS 504473 CLINDAMYCIN HCL Inactive CHANTIX 1 MG TABS [...] per day 06/27 CARAFATE 1 GM TAB 410569 SUCRALFATE Inactive SM VITAMIN B12 TR 1000 [...] HGBA1C - Chemistry sodium, serum 142 mmol/L [phone] carbon dioxide, venous blood 32.8 mmol/L 21.0-32.0 [...] Panel - Chemistry cholesterol, serum 165 mg/dL [phone] triglyceride, serum, fasting 124 mg/dL 30-200 HDL [...] semiquantitative Negative Negative urine color Yellow Colorless;Lightyellow;Straw;Yellow appearance, urine Clear Clear specific gravity, urine >=1.030 1.000-1.030 pH, urine, semiquantitative 5.5 5.0-8.5 Lab Report: VITAMIN B12/FOLATE, SERUM PANE, FERRITIN, VITAMIN D, 25-HYDR ... - Chemistry vitamin D 25-hydroxy, serum 32 ng/mL 30-100 Encounters Code Encounter Date Provider Facility CPT-39532 Level 3 Est. Patient 11:16:27 LYFT DRIVER Nereyda Rodriguez [facility] CPT-28375 Level 4 Est. Patient 08:56:42 LYFT DRIVER Sasha Espitia [facility] CPT-92508 Level 3 Est. Patient 16:40:58 CDT Rian Ortega MD [facility] CPT-60555 Level 3 Est. Patient 13:55:16 LYFT DRIVER Rian Ortega MD [facility] CPT-94163 Level 3 Est. Patient 10:42:52 CDT Corrina Bailon [facility] CPT-94013 Level 3 Est. Patient 11:18:30 CDT Aris Charlton MD [facility] Procedures Code Procedure Name Date Entry Date Standard Description CPT-22301 UA w micro - LAB USE ONLY 13:09:18 LYFT DRIVER CPT-51020 Urine Culture - LAB USE ONLY 13:09:18 LYFT DRIVER CPT-56935 Wet Mount - LAB USE ONLY 11:11:39 LYFT DRIVER CPT-87758 Lipid - LAB USE ONLY 15:05:24 LYFT DRIVER CPT-59450 PT/INR - LAB USE ONLY 12:14:07 CDT CPT-13082 HGBA1C - LAB USE ONLY 12:14:07 CDT CPT-69112 CMP - LAB USE ONLY 12:14:07 CDT CPT-14459 CBC - LAB USE ONLY 12:14:07 CDT CPT-37599 Venipuncture Draw Fee 12:14:06 CDT CPT-J0702 Celestone 6 mg (Betamethasone) 15:04:45 LYFT DRIVER CPT-75228 Abx/Therapy Injection 15:04:45 LYFT DRIVER CPT-J0702 Celestone 12 mg (Betamethasone) 11:45:31 LYFT DRIVER CPT-74470 Visit 11:39:52 LYFT DRIVER CPT-07102X Sono biophysical pro wo stress test-[facility] 11:21: 42 LYFT DRIVER CPT-23732 Visit 16:00:50 LYFT DRIVER CPT-87145L Sono biophysical pro wo stress test-[facility] 13:12: 18 LYFT DRIVER CPT-53743 Sono biophysical pro wo stress test 11:17:21 LYFT DRIVER 05/21 CPT-26528 Tdap 7yrs or > 15:22:51 LYFT DRIVER CPT-15956 Immunization Single Admin 15:22:51 LYFT DRIVER CPT-19952 Tdap 7yrs or > 15:09:13 LYFT DRIVER CPT-56071 Visit 14:54:16 LYFT DRIVER CPT-71394 Fluzone Quadrivalent Intramuscular Suspension 0.5 ML 16: 58:58 CDT CPT-45665 Administration single or combination vaccine inc oral 16 :58:58 CDT CPT-69711 Fluzone Thim Free 36mo and older 14:47:39 CDT CPT-26174 Visit 14:47:39 CDT CPT-79226 Sono OB limited 10:30:07 CDT CPT-40751 Visit 10:04:44 CDT CPT-38081 Sono OB comp > 14 weeks 12:50:41 CDT CPT-64219 Visit 12:06:25 CDT CPT-76484 Visit 12:43:15 CDT CPT-55710 Visit 10:06:02 CDT CPT-65928 Spec Collection and Handling Fee 10:00:31 CDT CPT-84663 Visit 10:00:30 CDT CPT-15081 Drug Screen [place] 14:36:13 CDT
--- OUTSIDE RECORDS SUMMARY | 2018-08-28 07:14 | XMS REPORT | Clinical Summary ---
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 Active Sasha Espitia [...] MG ORAL TABS 1 daily VIT-FE FUMARATE-FA 92674609631 No Longer Active Sasha Espitia APRN Active CHANTIX STARTING MONTH DANILO 0.5 MG X 11 & 1 MG X 42 TABS take as directed 2015 VARENICLINE TARTRATE 74382493196 No Longer Active Sasha Espitia APRN Active CHANTIX 1 MG TABS 1 twice a day to help quit smoking VARENICLINE TARTRATE 14799731665 No Longer Active Sashashante Espitia APRN Active OMEPRAZOLE 20 MG CPDR 1 tablet by mouth daily OMEPRAZOLE 65380938416 Active Sasha Espitia BETO Active CARAFATE 1 GM TAB 1 tab po as needed up to 4 times per day SUCRALFATE 84997503378 Active Sashashante Espitia APRN Active FLINSTONES GUMMIES OMEGA-3 DHA ORAL CHEW 2 gummies per day PEDIATRIC MULTIPLE VIT-C-FA 93075121237 Active Sasha Espitia BETO Active SM VITAMIN B12 TR 1000 MCG ORAL CR-TABS 1 tab po daily CYANOCOBALAMIN 01380798827 Active Sasha Omkar PÉREZ Active CLINDAMYCIN HCL 150 MG CAPS 1 four times a day for 1 week CLINDAMYCIN HCL 79001940060 No Longer Active Karen Jaramillo MD Active TRIAMCINOLONE ACETONIDE 0.1 % CREA Apply to affected areas TID for up to 1 week TRIAMCINOLONE ACETONIDE 70656486405 No Longer Active Rian Ortega MD Active ZITHROMAX 1 GM ORAL PACK Take 1 time and recheck lab in 2-3 weeks AZITHROMYCIN 66613623333 No Longer Active Rian Ortega MD Active FLAGYL 500 MG TAB four tabs PO x 1 METRONIDAZOLE 84014269221 No Longer Active Aris Charlton MD Active FLAGYL 500 MG TAB four tabs PO x 1 FLAGYL 500 MG TAB 719448 METRONIDAZOLE Inactive ZITHROMAX 1 GM ORAL PACK Take 1 time and recheck lab in 2-3 weeks ZITHROMAX 1 GM ORAL PACK 300327 AZITHROMYCIN Inactive TRIAMCINOLONE ACETONIDE 0.1 % CREA Apply to affected areas TID for up to 1 week TRIAMCINOLONE ACETONIDE 0.1 % CREA 8064171 TRIAMCINOLONE ACETONIDE Inactive CLINDAMYCIN HCL 150 MG CAPS 1 four times a day for 1 week CLINDAMYCIN HCL 150 MG CAPS 900541 CLINDAMYCIN HCL Inactive CHANTIX 1 MG TABS [...] HGBA1C - Chemistry sodium, serum 142 mmol/L 314-031 7820 carbon dioxide, venous blood 32.8 mmol/L 21.0-32.0 [...] Panel - Chemistry cholesterol, serum 165 mg/dL [phone] triglyceride, serum, fasting 124 mg/dL 30-200 HDL [...] N Encounters Code Encounter Date Provider Facility CPT-79400 Level 4 Est. Patient 08:56:42 CLOTHER IN Sasha Espitia [facility] CPT-60145 Level 3 Est. Patient 16:40:58 CDT Rian Ortega MD [facility] CPT-66977 Level 3 Est. Patient 13:55:16 CLOTHER IN Rian Ortega MD [facility] CPT-67137 Level 3 Est. Patient 10:42:52 CDT Corrina Bailon [facility] CPT-55218 Level 3 Est. Patient 11:18:30 CDT Aris Charlton MD [facility] Procedures Code Procedure Name Date Entry Date Standard Description CPT-99561 Wet Mount - LAB USE ONLY 11:11:39 CLOTHER IN CPT-15801 Lipid - LAB USE ONLY 15:05:24 CLOTHER IN CPT-95676 PT/INR - LAB USE ONLY 12:14:07 CDT CPT-79727 HGBA1C - LAB USE ONLY 12:14:07 CDT CPT-19352 CMP - LAB USE ONLY 12:14:07 CDT CPT-73483 CBC - LAB USE ONLY 12:14:07 CDT CPT-10783 Venipuncture Draw Fee 12:14:06 CDT CPT-J0702 Celestone 6 mg (Betamethasone) 15:04:45 CLOTHER IN CPT-29511 Abx/Therapy Injection 15:04:45 CLOTHER IN CPT-J0702 Celestone 12 mg (Betamethasone) 11:45:31 CLOTHER IN CPT-96077 Visit 11:39:52 CLOTHER IN CPT-98633D Sono biophysical pro wo stress test-[place] Only 11:21: 42 CLOTHER IN CPT-58168 Visit 16:00:50 CLOTHER IN CPT-37810O Sono biophysical pro wo stress test-[place] Only 13:12: 18 CLOTHER IN CPT-42980 Sono biophysical pro wo stress test 11:17:21 CLOTHER IN 05/21 CPT-99231 Tdap 7yrs or > 15:22:51 CLOTHER IN CPT-75803 Immunization Single Admin 15:22:51 CLOTHER IN CPT-21966 Tdap 7yrs or > 15:09:13 CLOTHER IN CPT-67290 Visit 14:54:16 CLOTHER IN CPT-33467 Fluzone Quadrivalent Intramuscular Suspension 0.5 ML 16: 58:58 CDT CPT-86840 Administration single or combination vaccine inc oral 16 :58:58 CDT CPT-26842 Fluzone Thim Free 36mo and older 14:47:39 CDT CPT-65381 Visit 14:47:39 CDT CPT-14674 Sono OB limited 10:30:07 CDT CPT-34450 Visit 10:04:44 CDT CPT-41700 Sono OB comp > 14 weeks 12:50:41 CDT CPT-59394 Visit 12:06:25 CDT CPT-89920 Visit 12:43:15 CDT CPT-77183 Visit 10:06:02 CDT CPT-00649 Spec Collection and Handling Fee 10:00:31 CDT CPT-94291 Visit 10:00:30 CDT CPT-56979 Drug Screen [place] 14:36:13 CDT
--- OUTSIDE RECORDS SUMMARY | 2018-08-28 07:14 | XMS REPORT ---
Author ANDIE Thayer Organization [employer] Address Unknown Phone Unavailable Care Team Providers Care System Support Technician Name Role Phone ANDIE PARADA CP Unavailable Allergies No Known Allergies Problems Problem Type Condition Code Onset Dates Condition Status Problem Unspecified contraceptive management V25.9 Active Assessment No condition on [place] I Z03.89 Active Problem Counseling on substance use and abuse V65.42 Active Medications No Known Medications Procedures Procedure Coding System Code Date Psych diagnostic evaluation, new patient CPT-4 16487 January 03, 2016 Results No Known Results Summary Purpose [employer] Submission
--- OUTSIDE RECORDS SUMMARY | 2018-08-28 07:15 | XMS REPORT | Continuity of Care Document ---
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 Yes No Known Drug Allergies [id number] 3 N/A N/A Yes NKANo Known Allergies NKA Miscellaneous Allergy Unknown N/A 10/14/2006 Yes ciprofloxacin [id number] Drug Allergy Moderate N/A 01/09/2011 Yes No Known Allergies No Known Allergies Drug Allergy Unknown N/A 2014 Yes morphine [id number] Drug Allergy Mild N/V 08/24/2018 Medications Medication Packaging Start Date Stop Date Route Dosage Sig LACTATED RINGERS 1000CC IV BAG INJ 0 ml 05/15/2016 05/22/2016 CONTINUOUSEVERY 0 Hour Problems Date Dx Coded Attending Type Code Diagnosis Diagnosed By 11/07/2013 JENNIFER MILAN APRN V25.9 CONTRACEPTION MANAGEMENT 11/07/2013 JENNIFER MILAN APRN V65.42 COUNSELING ON SUBSTANCE USE AND ABUSE 04/08/2015 W E66.01 Morbid Obesity 04/08/2015 W O09.292 w / History of Miscarriage 04/08/2015 W O09.522 Advanced Maternal Age, Multigravida 04/08/2015 W O76 Abnlt in heart rate and rhythm comp labor and delivery 04/08/2015 W O99.212 Obesity in 04/08/2015 W Z3A.23 23 weeks gestation of 04/08/2015 W Z82.79 Fam hx of congen malform, deformations and chromsoml abnlt 05/14/2015 Albin Armenta O76 Abnlt in heart rate and rhythm comp labor and delivery 05/14/2015 Albin Armenta Z3A.28 28 weeks gestation of 05/15/2015 Albin Armenta O09.523 Advanced Maternal Age, Multigravida 05/15/2015 Albin Armenta O40.3xx0 Polyhydramnios 05/15/2015 Albin Armenta O76 Abnormal Heart Rate/Pattern 05/15/2015 Albin Armenta O99.213 Obesity in 05/15/2015 Albin Armenta Z3A.28 28 weeks gestation of 05/15/2015 Albin Armenta Z82.79 Family History of Congenital Anomaly 06/06/2015 Albin Armenta O09.523 Advanced Maternal Age, Multigravida 06/06/2015 Albin Armenta O34.21 Previous 06/06/2015 Albin Armenta O40.3xx0 Polyhydramnios 06/06/2015 Albin Armenta Z3A.31 31 weeks gestation of 06/11/2015 Albin Armenta O76 Abnlt in heart rate and rhythm comp labor and delivery 06/11/2015 Albin Armenta Z3A.32 32 weeks gestation of 06/11/2015 Albin Armenta O09.523 Supervision of elderly multigravida, third trimester 06/11/2015 Albin Armenta O34.21 Maternal care for scar from previous delivery 06/11/2015 Albin Armenta O40.3xx0 Polyhydramnios, third trimester, not applicable or unsp 06/11/2015 Albin Armenta3A.32 32 weeks gestation of 06/18/2015 Albin Armenta O09.523 Supervision of elderly multigravida, third trimester 06/18/2015 Albin Armenta O40.3xx0 Polyhydramnios 06/18/2015 Albin Armenta3A.33 33 weeks gestation of 06/25/2015 Albin Armenta O36.8130 Decreased movements, third trimester, unsp 06/25/2015 Albin Armenta O40.3xx0 Polyhydramnios, third trimester, not applicable or unsp 06/25/2015 Albin Armenta Z3A.34 34 weeks gestation of 07/02/2015 Albin Armenta O09.523 Advanced Maternal Age, Multigravida 07/02/2015 Albin Armenta O36.8130 Decreased movements, third trimester, unsp 07/02/2015 Albin Armenta O40.3xx0 Polyhydramnios 07/02/2015 Albin Armenta O76 Abnormal Heart Rate/Pattern 07/02/2015 Albin Armenta Z3A.35 35 weeks gestation of 07/02/2015 Albin Armenta Z82.79 Family History of Congenital Anomaly 07/05/2015 Waldemar Madera O09.523 Supervision of elderly multigravida, third trimester 07/05/2015 Waldemar Madera O40.3xx0 Polyhydramnios, third trimester, not applicable or unsp 07/05/2015 Waldemar Madera Z3A.35 35 weeks gestation of 07/09/2015 Albin Armenta O09.523 Supervision of elderly multigravida, third trimester 07/09/2015 Albin Armenta O36.8130 Decreased movements, third trimester, unsp 07/09/2015 Albin Armenta O40.3xx0 Polyhydramnios, third trimester, not applicable or unsp 07/09/2015 Albin Armenta Z3A.36 36 weeks gestation of 07/12/2015 Waldemar Madera O40.3xx0 Polyhydramnios, third trimester, not applicable or unsp 07/12/2015 Waldemar Madear Z3A.36 36 weeks gestation of 07/16/2015 Albin Armenta O09.523 Supervision of elderly multigravida, third trimester 07/16/2015 Albin Armenta O40.3xx0 Polyhydramnios, third trimester, not applicable or unsp 07/16/2015 Albin Armenta3A.37 37 weeks gestation of 07/16/2015 Waldemar Madera MD O34.21 MATERNAL CARE FOR SCAR FROM PREVIOUS DELI 07/16/2015 Waldemar Madera MD O40.3XX0 POLYHYDRAMNIOS, THIRD TRIMESTER, NOT APPLICABLE OR 07/16/2015 Waldemar Madera MD O69.81X0 LABOR AND DEL COMP BY CORD AROUND NECK, W/O COMPRS 07/16/2015 Waldemar Madera MD Z30.2 ENCOUNTER FOR STERILIZATION 07/16/2015 Waldemar Madera MD Z34.83 ENCOUNTER FOR SUPRVSN OF NORMAL , THIRD TRIMESTER 07/16/2015 Waldemar Madera MD Z37.0 SINGLE LIVE 07/16/2015 Waldemar Madera MD Z3A.37 37 WEEKS GESTATION OF 05/15/2016 Hilda Roberts 530.81 ESOPHAGEAL REFLUX 05/15/2016 Hilda Roberts 535.10 ATROPHIC GASTRITIS, WITHOUT MENTION OF HEMORRHAGE 05/15/2016 Hilda Roberts 536.2 PERSISTENT VOMITING 05/15/2016 Hilda Roberts K21.9 GASTRO-ESOPHAGEAL REFLUX DISEASE WITHOUT ESOPHAGITIS 05/15/2016 Hilda Roberts K29.30 CHRONIC SUPERFICIAL GASTRITIS WITHOUT BLEEDING 05/15/2016 Hilda Roberts R11.10 VOMITING, UNSPECIFIED 02/15/2017 Aris Alvarez MD J40 Bronchitis 03/29/2017 Aris Alvarez MD E66.3 Overweight 03/29/2017 Aris Alvarez MD M25.512 Shoulder pain, left 03/30/2017 Aris Alvarez MD M54.9 Thoracic back pain 07/26/2017 Aris Alvarez MD R05 Cough 07/26/2017 Aris Alvarez MD R53.83 Fatigue 10/14/2017 Aris Alvarez MD M79.1 Myalgias 10/14/2017 Aris Alvarez MD Z68.29 Body Mass Index 29.0-29.9 Adult 03/10/2018 Aris Alvarez MD J01.90 SINUSITIS, ACUTE 08/22/2018 Aris Alvarez MD E66.9 Obesity Class I (BMI 30-34.9) 08/22/2018 Aris Alvarez MD Z01.818 Preoperative examination 08/22/2018 Aris Alvarez MD Z68.31 BMI 31-31.9 08/25/2018 MOOK DPAmadou, BHAVNA Linda Ot Z01.818 ENCOUNTER FOR OTHER PREPROCEDURAL EXAMIN Procedures Code Description [place] [address] THERAPUTIC INJ SQ/IM 11/07/2013 J1050 DEPO PROVERA 11/07/2013 62412 TEST, URINE (IN- HOUSE) 11/07/2013 75471 OB US, DETAILED, SNGL FETUS 04/08/2015 36500 TRANSVAGINAL US, OBSTETRIC 04/08/2015 21680 Echo exam of heart 04/08/2015 31553 Doppler color flow mapping 04/08/2015 42579 Office consultation, moderate 04/08/2015 41613 Ultrasnd preg uterus, flwup/ repeat 05/14/2015 69674 biophys prfl w/o nstress test 05/14/2015 82245 Office/outpatient visit,est , min 05/14/2015 19777 Echo exam of heart 05/14/2015 87551 Doppler color flow mapping 05/14/2015 35792 Ultrasnd preg uterus, flwup/ repeat 06/06/2015 26756 TRANSVAGINAL US, OBSTETRIC 06/06/2015 33603 biophys prfl w/o nstress test 06/06/2015 09905 Office/outpatient visit,est , mod 06/06/2015 98682 Doppler echo re-exam of heart 06/11/2015 45959 Doppler color flow mapping 06/11/2015 94715 biophys prfl w/o nstress test 06/11/2015 76634 biophys prfl w/o nstress test 06/18/2015 68589 Injection Administration 06/18/2015 J0702 Betamethasone acetTsod phosp 06/18/2015 91711 biophys prfl w/o nstress test 06/25/2015 47575 Ultrasnd preg uterus, flwup/ repeat 07/02/2015 25435 biophys prfl w/o nstress test 07/02/2015 12079 Office/outpatient visit,est , mod 07/02/2015 20342 biophys prfl w/o nstress test 07/05/2015 74442 biophys prfl w/o nstress test 07/09/2015 91973 biophys prfl w/o nstress test 07/12/2015 77233 biophys prfl w/o nstress test 07/16/2015 [id number] OCCLUSION OF BILATERAL FALLOPIAN TUBES, OPEN APPRO Waldemar Madera MD W 07/16/2015 06511GC DRAINAGE OF AMNIOTIC FL, THERAP FROM POC, VIA OPEN Waldemar Madera MD W 07/16/2015 [id number] EXTRACTION OF POC, LOW CERVICAL, OPEN APPROACH Waldemar Madera MD W 07/16/2015 Results Test Result Range CBC WITH DIFF - 02/11/15 00:00 BASO% 0.3 % 0-2 EOS% 0.9 % 0-7.0 HCT 31.6 % 36.9-47.0 HGB 10.7 G/DL 12.0-16.0 LYMPH% 20.8 % 20-40 MCH 29.4 PG 27-31 MCHC 33.9 G/DL 33-37 MCV 86.8 FL 81-99 MONO% 4.0 % 0-10.0 MPV 9.9 FL 7.3-10.4 NEUTRO% 73.4 % 40-70 PLT 302 10^3u 130-400 RBC 3.6 10^6u 4.2-5.4 RDW 13.2 % 11.5-15.5 WBC 10.8 10^3u 4.8-10.8 NEUTRO# 8.0 10^3u 1.5-7.5 LYMPH# 2.3 10^3u 0.9-4.0 MONO# 0.4 10^3u 0-0.8 EOS# 0.1 10^3u 0-0.6 BASO# 0.0 10^3u 0-0.1 IMM GRANULOCYTE % 0.6 % IMM GRANULOCYTE # 0.1 10^3u 0-5 CMP - 02/11/15 00:00 ALB 3.3 G/DL 3.5-5 ALP 49 IU/L 25-72 ALT 22 IU/L 12-65 AST 13 IU/L 10-42 BCR 11.1 10-20 BUN 9 MG/DL 7-18 CA 8.6 MG/DL 8.4-10.2 CL 101 MEQ/L 98-107 CO2 25.5 MEQ/L 22-28 CREA 0.81 MG/DL 0.6-1.0 EGFR 80 eGFR >=60 GLU 81 MG/DL 70-105 K 3.5 MEQ/L 3.5-5.1 NA 140 MEQ/L 134-145 OSMSC 277.1 MOSML 280-300 TBIL 0.5 MG/DL 0.1-1.0 TP 6.8 G/DL 6.0-8.3 Albumin/Globulin Ratio 0.9 0-8 Anion Gap 13.5 8-16 UR PROTEIN/CREATININE RATION - 06/18/15 13:20 UR CREATININE COMMENT RANDOM UR PROTEIN COMMENT RANDOM UR TOTAL PROTEIN LEVEL 20.8 mg/dL 0.0-11.9 UR CREATININE LEVEL 91.1 mg/dL 44-467 UR PROTEIN/CREATININE RATIO 228 mg/gm < 200 CBC - 06/18/15 13:25 MEAN CELL HGB 29.3 pg 27.0-33.0 MEAN CELL HGB CONCENTRATION 33.2 g/dL 32.0-37.0 MEAN CELL VOLUME 88.2 fl 80.0-100.0 RED BLOOD CELL 3.65 m/cumm 4.00-6.00 RED CELL DISTRIBUTION WIDTH 13.4 % 11.0-15.6 WHITE BLOOD CELL 15.5 k/cumm 5.0-10.0 HEMOGLOBIN 10.7 gm/dL 12.0-16.0 HEMATOCRIT 32.2 % 37.0-47.0 PLATELET COUNT 279 k/cumm 150-400 METABOLIC PANEL, COMPREHN - 06/18/15 13:25 POTASSIUM 3.7 mmol/L 3.5-5.3 EST GFR (MDRD) > 60 mL/min > 59 ANION GAP 7 mmol/L 5-15 EST CrCl (CG) > 60 mL/min > 59 GLUCOSE 89 mg/dL 70-99 CALCIUM 8.5 mg/dL 8.5-10.1 BLOOD UREA NITROGEN 9 mg/dL 7-20 CREATININE 0.7 mg/dL 0.6-1.0 SODIUM 138 mmol/L 135-148 CHLORIDE 107 mmol/L 98-110 AST/SGOT 11 Units/L 10-37 ALT/SGPT 20 Units/L < 66 CARBON DIOXIDE 24 mmol/L 21-32 TOTAL PROTEIN 6.9 gm/dL 6.4-8.2 ALBUMIN 3.0 gm/dL 3.4-5.0 BILI TOTAL 0.2 mg/dL 0.0-1.0 ALKALINE PHOSPHATASE TOTAL 73 IU/L 45-117 URIC ACID - 06/18/15 13:25 URIC ACID 3.6 mg/dL 2.6-6.0 LACTATE DEHYDROGENASE (LDH/LD) - 06/18/15 13:25 LACTATE DEHYDROGENASE (LDH/LD) 131 Units/L 81-234 CBC W/DIFF - 07/05/15 11:42 EOSINOPHIL # 0.1 k/cumm 0.1-0.5 EOSINOPHIL % 1 % 2-4 GRANULOCYTE # 7.5 k/cumm 2.0-9.0 GRANULOCYTE % 74 % 50-75 LYMPHOCYTE # 1.9 k/cumm 1.0-4.0 LYMPHOCYTE % 19 % 20-30 MEAN CELL HGB 29.5 pg 27.0-33.0 MEAN CELL HGB CONCENTRATION 33.5 g/dL 32.0-37.0 MEAN CELL VOLUME 87.9 fl 80.0-100.0 MONOCYTE # 0.5 k/cumm 0.1-1.0 MONOCYTE % 5 % 4-6 RED BLOOD CELL 3.73 m/cumm 4.00-6.00 RED CELL DISTRIBUTION WIDTH 13.3 % 11.0-15.6 WHITE BLOOD CELL 10.2 k/cumm 5.0-10.0 HEMOGLOBIN 11.0 gm/dL 12.0-16.0 HEMATOCRIT 32.8 % 37.0-47.0 PLATELET COUNT 261 k/cumm 150-400 METABOLIC PANEL, COMPREHN - 07/05/15 11:42 POTASSIUM 4.1 mmol/L 3.5-5.3 EST GFR (MDRD) > 60 mL/min > 59 ANION GAP 7 mmol/L 5-15 GLUCOSE 79 mg/dL 70-99 CALCIUM 8.6 mg/dL 8.5-10.1 BLOOD UREA NITROGEN 12 mg/dL 7-20 CREATININE 0.7 mg/dL 0.6-1.0 SODIUM 137 mmol/L 135-148 CHLORIDE 104 mmol/L 98-110 AST/SGOT 10 Units/L 10-37 ALT/SGPT 17 Units/L < 66 CARBON DIOXIDE 26 mmol/L 21-32 TOTAL PROTEIN 6.8 gm/dL 6.4-8.2 ALBUMIN 2.9 gm/dL 3.4-5.0 BILI TOTAL 0.2 mg/dL 0.0-1.0 ALKALINE PHOSPHATASE TOTAL 78 IU/L 45-117 LACTATE DEHYDROGENASE (LDH/LD) - 07/05/15 11:42 LACTATE DEHYDROGENASE (LDH/LD) 119 Units/L 81-234 CBC - 07/16/15 12:50 MEAN CELL HGB 29.8 pg 27.0-33.0 MEAN CELL HGB CONCENTRATION 34.0 g/dL 32.0-37.0 MEAN CELL VOLUME 87.6 fl 80.0-100.0 RED BLOOD CELL 3.72 m/cumm 4.00-6.00 RED CELL DISTRIBUTION WIDTH 13.8 % 11.0-15.6 WHITE BLOOD CELL 10.4 k/cumm 5.0-10.0 HEMOGLOBIN 11.1 gm/dL 12.0-16.0 HEMATOCRIT 32.6 % 37.0-47.0 PLATELET COUNT 262 k/cumm 150-400 HEMOGLOBIN - 07/16/15 20:28 MEAN CELL VOLUME 87.4 fl 80.0-100.0 HEMOGLOBIN 10.9 gm/dL 12.0-16.0 HEMOGLOBIN - 07/17/15 06:56 MEAN CELL VOLUME 87.6 fl 80.0-100.0 HEMOGLOBIN 10.8 gm/dL 12.0-16.0 Test-Serum - 05/15/16 12:03 Preg Test-S Negative Negative Surgical Pathology - 05/15/16 17:30 Surg Path Sent to [place] [facility] Albumin - 08/04/16 18:32 Albumin 4.6 g/dL 3.6-5.1 Urine beta human chorionic gonadotropin (hCG) measurement - 08/26/18 06:58 Urine beta human chorionic gonadotropin (hCG) measurement NEGATIVE NEGATIVE Encounters ACCT No. Visit Date/Time Discharge Status Pt. Type Provider Facility Loc./Unit Complaint [id number] 04/07/2018 02:17:31 04/07/2018 23:59:59 DIS Preadmit [facility] NAZANIN OT L Shoulder Pain [id number] 04/07/2018 02:17:31 04/07/2018 23:59:59 DIS Preadmit [facility] NAZANIN PT Back Pain [id number] 12/17/2017 12:05:10 12/17/2017 23:59:59 CLS Preadmit CLAUS RAINEY [facility] NAZANIN RAD screening [id number] 06/07/2015 11:43:00 06/07/2015 12:12:00 DIS Outpatient SUJATHA MALLORY [facility] OB [id number] 06/04/2015 11:53:00 06/04/2015 12:40:00 DIS Outpatient SUJATHA MALLORY [facility] OB [id number] 02/11/2015 12:59:00 02/11/2015 16:40:00 DIS Emergency ARIS ALVAREZ [facility] EMR [id number] 05/27/2014 00:00:00 Document Registration [id number] 08/04/2016 18:24:00 08/04/2016 23:59:00 DIS Outpatient Hilda Roberts [id number] 05/15/2016 18:54:00 05/15/2016 23:59:00 DIS Outpatient AlejandraHilda [id number] 05/15/2016 00:00:00 05/15/2016 16:00:00 DIS Outpatient Hilda Roberts [id number] 05/15/2016 12:04:14 Document Registration [id number] 08/26/2018 05:58:00 08/26/2018 11:05:00 DIS Outpatient MOOK DPM, BHAVNA Q [facility] SDC BUNION RIGHT FOOT [id number] 08/24/2018 05:59:00 08/24/2018 11:37:00 DIS Outpatient MOOK DPM, BHAVNA Q [facility] PREOP BUNIONECTOMY RIGHT FOOT [id number] 08/24/2018 11:25:00 Document Registration [id number] 01/12/2018 19:05:23 ACT Document Registration [id number] 08/22/2018 12:52:59 ACT Unknown Aris Alvarez MD [id number] 11/07/2013 10:21:00 11/07/2013 23:59:59 CLS Outpatient JENNIFER MILAN APRN [id number] 07/16/2015 12:16:00 07/18/2015 13:50:00 DIS Inpatient Santy REAL, [facility] WTeresa3WH [id number] 07/05/2015 11:26:00 07/05/2015 11:26:00 DIS Outpatient Santy REAL, [facility] W.LAB [id number] 06/29/2015 10:25:00 06/29/2015 11:35:00 DIS Outpatient Santy REAL [facility] WTeresaBCGINAScott [id number] 06/22/2015 11:08:00 06/22/2015 12:06:00 DIS Outpatient Albin Armenta MD [facility] W.2WOBED [id number] 06/18/2015 12:45:00 06/18/2015 14:53:00 DIS Emergency Waldemar Madera MD [facility] W.2WOBED [id number] 09/03/2015 08:36:00 09/03/2015 23:59:59 CLS Outpatient [facility] [id number] 08/20/2015 16:17:00 08/20/2015 23:59:59 CLS Outpatient [facility] [id number] 08/02/2015 11:00:00 08/02/2015 23:59:59 CLS Outpatient [facility] [id number] 07/16/2015 12:41:00 07/16/2015 23:59:59 CLS Outpatient [facility] [id number] 07/16/2015 11:47:00 07/16/2015 23:59:59 CLS Outpatient [facility] [id number] 07/16/2015 11:00:00 07/16/2015 23:59:59 CLS Outpatient Albin Armenta [id number] 07/16/2015 10:10:00 07/16/2015 23:59:59 CLS Outpatient [facility] [id number] 07/12/2015 11:00:00 07/12/2015 23:59:59 CLS Outpatient [facility] [id number] 07/10/2015 15:16:00 07/10/2015 23:59:59 CLS Outpatient [facility] [id number] 07/09/2015 13:45:00 07/09/2015 23:59:59 CLS Outpatient Albin Armenta [id number] 07/09/2015 11:15:00 07/09/2015 23:59:59 CLS Outpatient [facility] [id number] 07/05/2015 12:33:00 07/05/2015 23:59:59 CLS Outpatient [facility] [id number] 07/05/2015 11:00:00 07/05/2015 23:59:59 CLS Outpatient [facility] [id number] 07/03/2015 11:10:00 07/03/2015 23:59:59 CLS Outpatient Waldemar Madera [id number] 07/02/2015 11:30:00 07/02/2015 23:59:59 CLS Outpatient Geovany Albin Tobar [id number] 06/26/2015 08:58:00 06/26/2015 23:59:59 CLS Outpatient Waldemar Madera [id number] 06/25/2015 13:26:00 06/25/2015 23:59:59 CLS Outpatient Waldemar Madera [id number] 06/25/2015 11:10:00 06/25/2015 23:59:59 CLS Outpatient Waldemar Madera [id number] 06/25/2015 10:30:00 06/25/2015 23:59:59 CLS Outpatient ArmentaAlbin morales [id number] 06/18/2015 12:00:00 06/18/2015 23:59:59 CLS Outpatient ArmentaAlbin morales [id number] 06/14/2015 11:31:00 06/14/2015 23:59:59 CLS Outpatient ArmentaAlbin morales [id number] 06/14/2015 08:41:00 06/14/2015 23:59:59 CLS Outpatient Waldemar Madera [id number] 06/11/2015 13:05:00 06/11/2015 23:59:59 CLS Outpatient ArmentaAlbin morales [id number] 06/11/2015 13:00:00 06/11/2015 23:59:59 CLS Outpatient ArmentaAlbin morales [id number] 06/11/2015 10:00:00 06/11/2015 23:59:59 CLS Outpatient Waldemar Madera [id number] 06/06/2015 07:45:00 06/06/2015 23:59:59 CLS Outpatient ArmentaAlbin morales [id number] 06/05/2015 08:37:00 06/05/2015 23:59:59 CLS Outpatient Albin Armenta [id number] 05/14/2015 13:00:00 05/14/2015 23:59:59 CLS Outpatient Albin Armenta [id number] 05/14/2015 11:00:00 05/14/2015 23:59:59 CLS Outpatient Albin Armenta [id number] 04/09/2015 14:31:00 04/09/2015 23:59:59 CLS Outpatient Albin Armenta [id number] 04/09/2015 14:28:00 04/09/2015 23:59:59 CLS Outpatient Albin Armenta [id number] 03/11/2015 10:40:00 03/11/2015 23:59:59 CLS Outpatient Albin Armenta [id number] 04/08/2015 13:08:08 Document Registration
== END 2018-08-26 11:05 | disposition home or self-care (01) ==
LOC: SDC 05:58
PROVIDERS: ATTEND Podiatrist Foot & Ankle Surgery
DX: M21.621 Bunionette of right foot (principal); K21.9 Gastro-esophageal reflux disease without esophagitis; E66.9 Obesity, unspecified; Z68.30 Body mass index [BMI] 30.0-30.9, adult; Z87.891 Personal history of nicotine dependence; Z98.84 Bariatric surgery status
CPT/HCPCS: 73620; 84703; 87081